=== PATIENT | female | born 1950 | race Caucasian/White ===

== ENCOUNTER 2020-04-11 11:58 | Outpatient (CLI) | payer MEDICARE, OTHER, SELFPAY ==
[2020-04-11 12:50] LABS: Basophils # 0.1 10^3/uL (0.0-0.1); Basophils % 0.7 %; Eosinophils # 0.2 10^3/uL (0.0-0.8); Eosinophils % 1.3 %; Hemoglobin 13.1 g/dL (11.5-15.3); Lymphocytes # 6.8 10^3/uL (0.8-4.8); Lymphocytes % 46.7 %; Mean Corpuscular HGB Conc 31.2 g/dL (30.0-36.0); Mean Corpuscular Hemoglobin 32.1 pg (28.0-34.0); Mean Corpuscular Volume 102.9 fL (81-99); Mean Platelet Volume 10.6 fL (7.4-10.4); Monocytes # 1.2 10^3/uL (0.2-0.9); Monocytes % 8.1 %; Neutrophils % 42.9 %; Nucleated Red Blood Cells % 0 %; Platelet Count 380 10^3/cmm (130-400); Red Blood Count 4.08 10^6/uL (4.1-5.3); Red Cell Distribution Width 14.1 % (12.1-15.1); White Blood Count 14.5 10^3/uL (4.0-10.0)
[2020-04-11 13:04] LABS: Alanine Aminotransferase 33 U/L (0-33); Albumin Level 3.9 g/dL (3.5-5.2); Alkaline Phosphatase 129 IU/L (35-105); Anion Gap 16.3 (5-19); Aspartate Amino Transferase 45 U/L (0-32); Blood Urea Nitrogen 17 mg/dL (8-23); Calcium 9.3 mg/dL (8.5-10.5); Carbon Dioxide 22 mmol/L (22-29); Chloride 101 mmol/L (98-107); Globulin 3.8 g/dL (1.3-4.6); Glucose 303 mg/dL (65-115); Osmolality Calculated 288 mOsm/kg (285-295); Potassium 4.3 mmol/L (3.5-5.1); Sodium 135 mmol/L (136-145); Total Bilirubin 0.2 mg/dL (0.15-1.2); Total Protein 7.7 g/dL (6.6-8.7)
[2020-04-11 13:54] LABS: Lactate Dehydrogenase 188 U/L (135-214)
--- NOTE | 2020-04-11 20:25 | ONC FU_ITS ---
Dr. Griffith Patient Follow-Up Note Patient: Moira Mckinnon Unit #: [id number]: 1950 Dicatated By: Humphrey Griffith M.D.Date of Visit:Apr 11, 2020 Onc Med Follow-up/Prog Note Chief Complaint: Gamma-T lymphocytosis. 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 In May 2014 she was admitted with a febrile illness. This was ultimately determined to be a CMV infection, and she was treated with valganciclovir. I had seen her in October 2014 with persistent leukocytosis following that illness. The records included a CBC from 10/08/14 which showed an elevated white count at 18,600 with hemoglobin 13.8 g and platelet count 407,000. The red cell indices were normal. The differential included 22% neutrophils, 80% lymphocytes, 8% atypical lymphocytes, 8% monocytes, and 2% eosinophils. Comprehensive metabolic profile was unremarkable except for borderline renal function with BUN 27 and creatinine 1.1 mg/dL and calculated GFR 58 mL/m. Albumin was normal at 4.4 g/dL. Liver enzymes were normal. At the time of her visit in October 2014 her white count remained elevated at 22,000 with the differential showing 64% lymphocytes, 26% neutrophils, 7% monocytes, and 1% eosinophils. Hemoglobin was normal at 13.7 g and the platelet count was normal at 394,000. Comprehensive metabolic profile was unremarkable. LDH was normal at 197 units/L. Based on the differential count, I had suspected early stage chronic lymphocytic leukemia, but a whole blood flow cytometry study showed no aberrant myeloid or lymphoid populations. On a followup visit in November 2014 her CBC showed similar findings, but her blood smear did show numerous large granular lymphocytes consistent with gamma-T lymphocytosis. She underwent bone marrow aspiration/biopsy on 01/07/15. The bone marrow showed cellularity at 70-75%. There was just a mildly increased lymphocyte population in the bone marrow without blasts. Flow cytometry showed slightly increased CD8 positive T cells but with no overtly aberrant myeloid or lymphoid populations. The chromosome analysis was normal and the FISH panel for lymphoma was normal. A whole blood PCR T-cell panel in February 2015 was positive for a clonal T-cell receptor gamma (TCRG) population. As she was not overtly symptomatic, observation/expectant management was recommended. Her medical illnesses include hypertension, hyperlipidemia, type 2 diabetes, chronic kidney disease, GERD, irritable bowel syndrome, asthma, obstructive sleep apnea, degenerative arthritis, and fibromyalgia. She also has osteoporosis. She has a prior history of lower extremity deep vein thrombosis. She had cat scratch disease in 1991. She underwent splenectomy for traumatic injury in 2006. She does not smoke or drink alcohol. INTERIM HISTORY: Subsequent to her visit with me in March 2019 she had been seen by farm reporter for suspected lupus. 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 Her liver biopsy on 11/18/2019 showed mild steatosis with features of steatohepatitis, moderately active portal and lobular hepatitis, and cirrhosis, stage 4 of 4. Thus far she has been managed expectantly. She is seen for a follow-up visit. She says her energy is good, but she does have limited activity. Her ECOG score is 1. Her appetite is somewhat variable. She has been watching her diet for the cirrhosis. Her blood sugars lately have been high. She does not have fever or night sweats. She says she has sinus drainage all the time. She has shortness of breath, and she is on CPAP at night. She does not complain of cough, and she has not been having chest pain. She has nausea occasionally. She complains that she has acid reflux all the time despite taking Dexilant. Her bowels function is variable. She says she is either bound up or loose, but she does not have diarrhea. She has not been aware of any blood in the stool. She has frequent urination. She says she has generalized aching all the time. Her most significant pain lately has been in the left shoulder/left upper back area. She does not complain of headache. She has occasional dizziness. She has numbness in both hands. Medications: ALPRAZolam 1 (0.25 mg) Tablet Oral at bedtime PRN, Ambien 1 (10 mg) Tablet Oral at bedtime, Aspirin 1 (81 mg) Tablet Oral daily, BL Stool Softener 1 (100 mg) Capsule Oral daily, Calcium + D Tablet Oral daily, Cetirizine HCl 1 (10 mg) Tablet Oral daily, Cyclobenzaprine HCl 1 (10 mg) Tablet Oral t.i.d., Dexilant 1 (60 mg) Capsule Delayed Release Oral daily, EpiPen Injection PRN, Famvir 1 (50 mg) Tablet Oral daily, Flonase 2 spray(s) (of 50 mcg/act) Suspension Nasal daily, Flovent HFA 2 (220 mcg/act) Aerosol Inhalation PRN, Januvia 1 (100 mg) Tablet Oral daily, Lisinopril 1 (10 mg) Tablet Oral daily, Lyrica 1 Capsule (of 50 mg) Oral b.i.d., MetFORMIN HCl 2 Tablet (of 500 mg) Oral daily, Multivitamins Capsule Oral daily, Plavix 1 (75 mg) Tablet Oral daily, Polyethylene Glycol 1 (99 mg) Powder at bedtime, Potassium 1 (95 mg) Tablet, controlled release Oral daily, Probiotic 1 Capsule Oral b.i.d., Ventolin HFA Aerosol, solution Inhalation PRN, Vitamin B Complex Tablet Oral daily, Vitamin E 1 Capsule Oral daily Allergies: Demerol, Morphine Sulfate, PROzac, Sulfa Antibiotics, and Talwin NX. Review of Systems: Constitutional - Her energy is good, but she does have limited activity. Appetite is variable. She is watching her diet. Her blood sugars recently have been high. She does not have fever or night sweats. ECOG score is 1, ENMT - She has sinus drainage all the time. No mouth sores. No sore throat or difficulty swallowing, Hematologic/Lymphatic - She bruises easily, Respiratory - She has shortness of breath, and she is using CPAP at night. No cough. No pleuritic pain or hemoptysis, Cardiovascular - No angina pain. No palpitations, Gastrointestinal - She occasionally has nausea. She has acid reflux all the time despite taking Dexilant. She says her bowels are either bound up or loose, but she does not have diarrhea. No blood in the stool or black stools, Genitourinary (F) - No dysuria or hematuria. She has urinary frequency. No urgency or incontinence, Musculoskeletal - She has generalized aching all the time. Her most severe pain is in her left shoulder/left upper back area, Integumentary - No skin rash, Neurologic - No headache. She occasionally has dizziness. She has numbness in hands. No other focal neurologic symptoms, Psychiatric - No anxiety or depression. She does not sleep well at night. Vital Signs: Performed on Apr 11, 2020 13:32 Height - 64.00 in Weight - 170.2 lbs (LOW) BSA - 1.83 sq.m BMI - 29.21 Temperature - 98.2 F (LOW) Pulse - 100 /min Respiration - 24 /min BP - 158/96 mm(hg) (HIGH) O2 Sat - 96 % Pain - 7 Physical Examination: Constitutional - She looks pretty good generally, though she has limited mobility, Eyes - Sclerae nonicteric. Conjunctivae clear, ENMT - No lesions noted in the oral cavity, Hematologic/Lymphatic - There is no cervical, clavicular, or axillary adenopathy noted, Respiratory - Lungs are clear, Cardiovascular - Heart rhythm is regular. There is a II/ systolic murmur. There is no gallop or rub noted, Abdomen - Soft. Liver is not enlarged. There is no abdominal mass or ascites noted and there is no inguinal adenopathy, Extremities - No edema, Neurologic - No focal neurologic deficits noted. Lab/Imaging: Test performed on Apr 11, 2020 12:10 LDH (Total) 188 U/L Sodium 135 mmol/L Potassium 4.3 mmol/L Chloride 101 mmol/L CO2 22 mmol/L Anion Gap 16.3 BUN 17 mg/dL Creatinine 0.9 mg/dL Cr Clearance (Est) 69.88 mL/min Glucose 303 mg/dL Calcium 9.3 mg/dL Protein, Total 7.7 g/dL Albumin 3.9 g/dL Globulin 3.8 g/dL Bilirubin, Total 0.2 mg/dL ALT (SGPT) 33 U/L AST (SGOT) 45 U/L Alkaline Phosphatase 129 IU/L WBC 14.5 10 3/uL RBC 4.08 10 6/uL HGB 13.1 g/dL HCT 42.0 % MCV 102.9 fL MCH 32.1 pg MCHC 31.2 g/dL RDW 14.1 % Platelet Count 380 10 3/cmm MPV 10.6 fL Neutrophils 6.20 10 3/uL Lymphocytes 6.8 10 3/uL Monocytes 1.2 10 3/uL Eosinophils 0.2 10 3/uL Basophils 0.1 10 3/uL Neutrophil % 42.9 % Lymphocyte % 46.7 % Monocyte % 8.1 % Eosinophil % 1.3 % Basophils % 0.7 % NRBC % 0 % Impression: 1. The patient has persistent lymphocytosis. It initially developed following a febrile illness in May 2014, presumed to have been due to cytomegalovirus. 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 2. She was not overtly symptomatic with it, and as there had been no evidence of any progression, observation/expectant management was recommended. Her other medical illnesses include: 3. Hypertension. 4. Hyperlipidemia. 5. Type II diabetes. 6. Chronic kidney disease. 7. GERD. 8. Irritable bowel syndrome. 9. Asthma/COPD. 10. Degenerative arthritis and fibromyalgia with chronic pain. 11. Osteoporosis. 12. She has a prior history of lower extremity deep vein thrombosis. 13. She underwent splenectomy for traumatic injury in 2006. During follow-up, she had ongoing problems related to her degenerative arthritis and she required multiple joint surgeries. In November 2018 she was admitted to the hospital with Shigella gastroenteritis. During subsequent follow-up she developed symptoms and laboratory findings suggestive of systemic lupus erythematosus. 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 Her liver biopsy in October 2019 showed mild steatosis with features of steatohepatitis and moderately active portal and lobular hepatitis, but with fairly advanced cirrhosis (stage 4 of 4). She continues to have fairly generalized musculoskeletal pain, and she has somewhat limited activity. She says her blood sugars recently have been running high. Her blood counts, though, are stable to improved. There has been no evidence of progression of the gamma T lymphocytosis and no evidence of it being symptomatic. Plan: She remains on observation/expectant management for the gamma T lymphocytosis. I will see her again in one year. Signed By: Humphrey Griffith M.D. <<Signature on File>>
== END 2020-04-11 11:59 | disposition home or self-care (01) ==
LOC: ONCMED 12:02
PROVIDERS: PCP Family Medicine; Visit Provider Internal Medicine Medical Oncology
DX: D72.820 Lymphocytosis (symptomatic) (principal); E78.5 Hyperlipidemia, unspecified; E11.22 Type 2 diabetes mellitus with diabetic chronic kidney disease; I12.9 Hypertensive chronic kidney disease with stage 1 through stage 4 chronic kidney disease, or unspecified chronic kidney disease; N18.9 Chronic kidney disease, unspecified; K21.9 Gastro-esophageal reflux disease without esophagitis; K58.9 Irritable bowel syndrome, unspecified; J44.9 Chronic obstructive pulmonary disease, unspecified; M19.90 Unspecified osteoarthritis, unspecified site; M79.7 Fibromyalgia; M81.0 Age-related osteoporosis without current pathological fracture; Z86.718 Personal history of other venous thrombosis and embolism; Z79.82 Long term (current) use of aspirin; Z79.84 Long term (current) use of oral hypoglycemic drugs
CPT/HCPCS: 80053; 83615; 85025; G0463

== ENCOUNTER → 2020-05-26 10:55 | Outpatient (BNVA) | payer MEDICARE, OTHER, SELFPAY | PROVIDERS: PCP Family Medicine; Visit Provider Internal Medicine | DX: E11.65 Type 2 diabetes mellitus with hyperglycemia (principal); I10 Essential (primary) hypertension; K74.69 Other cirrhosis of liver | CPT/HCPCS: 99204 ==

== ENCOUNTER 2020-05-27 08:37 | Outpatient (CLI) | payer MEDICARE, OTHER, SELFPAY ==
[2020-05-27 09:23] LABS: Estmated Average Glucose 197; Hemoglobin A1C 8.5 % (4.0-6.0)
== END 2020-05-27 08:38 | disposition home or self-care (01) ==
LOC: LAB 08:42
PROVIDERS: PCP Family Medicine; Visit Provider Internal Medicine
DX: E11.65 Type 2 diabetes mellitus with hyperglycemia (principal)
CPT/HCPCS: 36415; 83036

== ENCOUNTER → 2020-07-26 08:19 | Outpatient (BNVA) | payer MEDICARE, OTHER, SELFPAY | PROVIDERS: PCP Family Medicine; Visit Provider Internal Medicine | DX: E11.65 Type 2 diabetes mellitus with hyperglycemia (principal); E78.5 Hyperlipidemia, unspecified; I10 Essential (primary) hypertension; K74.69 Other cirrhosis of liver | CPT/HCPCS: 99214 ==

== ENCOUNTER → 2020-08-23 08:58 | Outpatient (BNVA) | payer MEDICARE, OTHER, SELFPAY | PROVIDERS: PCP Family Medicine; Visit Provider Internal Medicine | DX: E11.65 Type 2 diabetes mellitus with hyperglycemia (principal); E78.5 Hyperlipidemia, unspecified; I10 Essential (primary) hypertension; K74.69 Other cirrhosis of liver | CPT/HCPCS: 99213 ==

== ENCOUNTER → 2020-12-16 08:25 | Outpatient (BNVA) | payer MEDICARE, SELFPAY | PROVIDERS: PCP Family Medicine; Visit Provider Internal Medicine | DX: E11.65 Type 2 diabetes mellitus with hyperglycemia (principal); E78.5 Hyperlipidemia, unspecified; I10 Essential (primary) hypertension; K74.69 Other cirrhosis of liver | CPT/HCPCS: 99214 ==

== ENCOUNTER 2021-04-12 12:01 | Outpatient (CLI) | payer MEDICARE, SELFPAY ==
[2021-04-12 12:19] LABS: Basophils # 0.1 10^3/uL (0.0-0.1); Basophils % 0.6 %; Eosinophils # 0.3 10^3/uL (0.0-0.8); Eosinophils % 1.7 %; Hematocrit 36.7 % (37.0-47.0); Hemoglobin 11.8 g/dL (11.5-15.3); Lymphocytes # 9.6 10^3/uL (0.8-4.8); Lymphocytes % 55.3 %; Mean Corpuscular HGB Conc 32.2 g/dL (30.0-36.0); Mean Corpuscular Hemoglobin 28.5 pg (28.0-34.0); Mean Corpuscular Volume 88.6 fL (81-99); Mean Platelet Volume 9.7 fL (7.4-10.4); Monocytes # 1.4 10^3/uL (0.2-0.9); Monocytes % 8.3 %; Neutrophils # 5.84 10^3/uL (1.8-7.7); Neutrophils % 33.7 %; Nucleated Red Blood Cells % 0 %; Platelet Count 475 10^3/cmm (130-400); Positive M 1; Red Blood Count 4.14 10^6/uL (4.1-5.3); Red Cell Distribution Width 16.4 % (12.1-15.1); White Blood Count 17.3 10^3/uL (4.0-10.0)
[2021-04-12 12:41] LABS: Alanine Aminotransferase 55 U/L (0-33); Albumin Level 4.3 g/dL (3.5-5.2); Alkaline Phosphatase 89 IU/L (35-105); Anion Gap 19.4 (5-19); Aspartate Amino Transferase 65 U/L (0-32); Blood Urea Nitrogen 16 mg/dL (8-23); Calcium 9.4 mg/dL (8.5-10.5); Carbon Dioxide 21 mmol/L (22-29); Chloride 102 mmol/L (98-107); Globulin 3.6 g/dL (1.3-4.6); Glucose 156 mg/dL (65-115); Lactate Dehydrogenase 204 U/L (135-214); Osmolality Calculated 290 mOsm/kg (285-295); Potassium 4.4 mmol/L (3.5-5.1); Sodium 138 mmol/L (136-145); Total Bilirubin 0.2 mg/dL (0.15-1.2); Total Protein 7.9 g/dL (6.6-8.7)
[2021-04-12 12:49] LABS: Slide Review Slide Review Perform
[2021-04-12 15:25] LABS: Iron 42 ug/dL (37-145); Percent Saturation 10.2 % (20-50); Total Iron Binding Capacity 409 mcg/dl; Unsaturated Iron Binding 367 ug/dL (112-347); Vitamin B12 1184 pg/mL (232-1245)
--- NOTE | 2021-04-16 15:34 | ONC FU_ITS ---
Dr. Griffith Patient Follow-Up Note Patient: Moira Mckinnon Unit #: [id number]: 1950 Dicatated By: Humphrey Griffith M.D.Date of Visit:Apr 12, 2021 Onc Med Follow-up/Prog Note Chief Complaint: Gamma-T lymphocytosis. History of Present Illness: This is a 71 year-old woman with gamma-T lymphocytosis. In May 2014 she was admitted with a febrile illness. This was ultimately determined to be a CMV infection, and she was treated with valganciclovir. I had seen her in October 2014 with persistent leukocytosis following that illness. The records included a CBC from 10/08/14 which showed an elevated white count at 18,600 with hemoglobin 13.8 g and platelet count 407,000. The red cell indices were normal. The differential included 22% neutrophils, 80% lymphocytes, 8% atypical lymphocytes, 8% monocytes, and 2% eosinophils. Comprehensive metabolic profile was unremarkable except for borderline renal function with BUN 27 and creatinine 1.1 mg/dL and calculated GFR 58 mL/m. Albumin was normal at 4.4 g/dL. Liver enzymes were normal. At the time of her visit in October 2014 her white count remained elevated at 22,000 with the differential showing 64% lymphocytes, 26% neutrophils, 7% monocytes, and 1% eosinophils. Hemoglobin was normal at 13.7 g and the platelet count was normal at 394,000. Comprehensive metabolic profile was unremarkable. LDH was normal at 197 units/L. Based on the differential count, I had suspected early stage chronic lymphocytic leukemia, but a whole blood flow cytometry study showed no aberrant myeloid or lymphoid populations. On a followup visit in November 2014 her CBC showed similar findings, but her blood smear did show numerous large granular lymphocytes consistent with gamma-T lymphocytosis. She underwent bone marrow aspiration/biopsy on 01/07/15. The bone marrow showed cellularity at 70-75%. There was just a mildly increased lymphocyte population in the bone marrow without blasts. Flow cytometry showed slightly increased CD8 positive T cells but with no overtly aberrant myeloid or lymphoid populations. The chromosome analysis was normal and the FISH panel for lymphoma was normal. A whole blood PCR T-cell panel in February 2015 was positive for a clonal T-cell receptor gamma (TCRG) population. As she was not overtly symptomatic, observation/expectant management was recommended. Her medical illnesses include hypertension, hyperlipidemia, type 2 diabetes, chronic kidney disease, GERD, irritable bowel syndrome, asthma, obstructive sleep apnea, degenerative arthritis, and fibromyalgia. She also has osteoporosis. She has a prior history of lower extremity deep vein thrombosis. She had cat scratch disease in 1991. She underwent splenectomy for traumatic injury in 2006. She does not smoke or drink alcohol. INTERIM HISTORY: Subsequent to her visit with nc in March 2019 she had been seen by sewer system supervisor for suspected lupus. 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 Her liver biopsy on 11/18/2019 showed mild steatosis with features of steatohepatitis, moderately active portal and lobular hepatitis, and cirrhosis, stage 4 of 4. She has been managed expectantly. She is seen for a follow-up visit. She says she is feeling okay except for her back pain, which limits her activity. She is able to do some walking and she also does gardening and some housework. ECOG score is 1. She has good appetite. She does not have fever or night sweats. She has not had sore mouth or throat and she has no difficulty swallowing. She has no shortness of breath, cough, or chest pain. She has no GI or complaints. She has no pain other than her back. She does not complain of headache or dizziness. She does have some numbness/tingling in her left arm. She is on CPAP for obstructive sleep apnea. Medications: ALPRAZolam 1 (0.25 mg) Tablet Oral at bedtime PRN, Ambien 1 (10 mg) Tablet Oral at bedtime, Aspirin 1 (81 mg) Tablet Oral daily, BL Stool Softener 1 (100 mg) Capsule Oral daily, Calcium + D Tablet Oral daily, Cetirizine HCl 1 (10 mg) Tablet Oral daily, Cyclobenzaprine HCl 1 (10 mg) Tablet Oral t.i.d., Dexilant 1 (60 mg) Capsule Delayed Release Oral daily, EpiPen Injection PRN, Famvir 1 (50 mg) Tablet Oral daily, Flonase 2 spray(s) (of 50 mcg/act) Suspension Nasal daily, Flovent HFA 2 (220 mcg/act) Aerosol Inhalation PRN, Januvia 1 (100 mg) Tablet Oral daily, Lisinopril 1 (10 mg) Tablet Oral daily, Lyrica 1 Capsule (of 50 mg) Oral b.i.d., MetFORMIN HCl 2 Tablet (of 500 mg) Oral daily, Multivitamins Capsule Oral daily, Plavix 1 (75 mg) Tablet Oral daily, Polyethylene Glycol 1 (99 mg) Powder at bedtime, Potassium 1 (95 mg) Tablet, controlled release Oral daily, Probiotic 1 Capsule Oral b.i.d., Ventolin HFA Aerosol, solution Inhalation PRN, Vitamin B Complex Tablet Oral daily, Vitamin E 1 Capsule Oral daily Allergies: Demerol, Morphine Sulfate, PROzac, Sulfa Antibiotics, and Talwin NX. Vital Signs: Performed on Apr 12, 2021 13:28 Height - 64.00 in Weight - 178.8 lbs (HIGH) BSA - 1.87 sq.m BMI - 30.69 (HIGH) Temperature - 97.2 F (LOW) Pulse - 109 /min (HIGH) Respiration - 18 /min BP - 148/83 mm(hg) (HIGH) O2 Sat - 97 % Pain - 8 Fatigue - 0 Physical Examination: Constitutional - She looks pretty good generally, Eyes - Sclerae nonicteric. Conjunctivae clear, ENMT - No lesions noted in the oral cavity, Hematologic/Lymphatic - There is no cervical, clavicular, or axillary adenopathy noted, Respiratory - Lungs are clear, Cardiovascular - Heart rhythm is regular. There is a III/ systolic murmur. There is no gallop or rub noted, Abdomen - Soft. Liver is not enlarged. There is no abdominal mass or ascites noted and there is no inguinal adenopathy, Extremities - No edema, Neurologic - No focal neurologic deficits noted. Lab/Imaging: Test performed on Apr 12, 2021 12:11 Iron 42 mcg/dL LDH (Total) 204 U/L Sodium 138 mmol/L Vitamin B12 1184 pg/mL Iron Binding Capacity (TIBC) 409 mcg/dl Potassium 4.4 mmol/L % Iron Saturation 10.2 % Chloride 102 mmol/L CO2 21 mmol/L UIBC 367 mcg/dL Anion Gap 19.4 BUN 16 mg/dL Creatinine 1.1 mg/dL Cr Clearance (Est) 59.19 mL/min Glucose 156 mg/dL Osmolality - Calculated 290 mOsm/kg Calcium 9.4 mg/dL Protein, Total 7.9 g/dL Albumin 4.3 g/dL Globulin 3.6 g/dL Bilirubin, Total 0.2 mg/dL ALT (SGPT) 55 U/L AST (SGOT) 65 U/L Alkaline Phosphatase 89 IU/L WBC 17.3 10 3/uL RBC 4.14 10 6/uL HGB 11.8 g/dL HCT 36.7 % MCV 88.6 fL MCH 28.5 pg MCHC 32.2 g/dL RDW 16.4 % Platelet Count 475 10 3/cmm MPV 9.7 fL Neutrophils 5.84 10 3/uL Lymphocytes 9.6 10 3/uL Monocytes 1.4 10 3/uL Eosinophils 0.3 10 3/uL Basophils 0.1 10 3/uL Neutrophil % 33.7 % Lymphocyte % 55.3 % Monocyte % 8.3 % Eosinophil % 1.7 % Basophils % 0.6 % NRBC % 0 % CBC Slide Review Slide Review Perform Problem List: 1. 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 2. Autoimmune liver disease with cirrhosis. 3. Hypertension. 4. Hyperlipidemia. 5. Type II diabetes. 6. Chronic kidney disease. 7. GERD. 8. Irritable bowel syndrome. 9. Asthma/COPD. 10. Degenerative arthritis and fibromyalgia with chronic pain. 11. Osteoporosis. 12. She has a prior history of lower extremity deep vein thrombosis. 13. She underwent splenectomy for traumatic injury in 2006. Problems Addressed with this Encounter and Plan: 1. Patient with persistent lymphocytosis. It initially developed following a febrile illness in May 2014, presumed to have been due to cytomegalovirus. 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 She was not overtly symptomatic with it, and as there had been no evidence of any progression, observation/expectant management was recommended. During follow-up she has had limited activity due to her underlying degenerative disease and chronic back pain. There has been no evidence for symptomatic progression of the lymphoproliferative disorder. As such, she continues expectant management. I will see her again in 6 months. 2. She has become mildly anemic. She will have additional laboratory studies to include serum iron studies and a B12 level. She will have further evaluation as indicated. If she is confirmed to have iron deficiency, she will need stool testing to evaluate for occult GI blood loss. 3. In November 2018 she was admitted to the hospital with Shigella gastroenteritis. During subsequent follow-up she developed symptoms and laboratory findings suggestive of systemic lupus erythematosus. 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 Her liver biopsy in October 2019 showed mild steatosis with features of steatohepatitis and moderately active portal and lobular hepatitis, but with fairly advanced cirrhosis (stage 4 of 4). It has been managed expectantly. Signed By: Humphrey Griffith M.D. <<Signature on File>>
== END 2021-04-12 12:02 | disposition home or self-care (01) ==
LOC: ONCMED 12:05
PROVIDERS: PCP Family Medicine; Visit Provider Internal Medicine Medical Oncology
DX: C91.Z0 Other lymphoid leukemia not having achieved remission (principal); K74.69 Other cirrhosis of liver; I10 Essential (primary) hypertension; E78.5 Hyperlipidemia, unspecified; E11.9 Type 2 diabetes mellitus without complications; N18.9 Chronic kidney disease, unspecified; K21.9 Gastro-esophageal reflux disease without esophagitis; K58.9 Irritable bowel syndrome, unspecified; J44.9 Chronic obstructive pulmonary disease, unspecified; M18.0 Bilateral primary osteoarthritis of first carpometacarpal joints; Z79.899 Other long term (current) drug therapy
CPT/HCPCS: 36415; 80053; 82607; 83540; 83550; 83615; 85025; 99214

== ENCOUNTER 2021-05-26 15:15 | Outpatient (CLI) | payer MEDICARE, SELFPAY | END 2021-05-26 15:16 | disposition home or self-care (01) | LOC: LAB 15:19 | PROVIDERS: PCP Family Medicine; Visit Provider Internal Medicine Medical Oncology | DX: D64.9 Anemia, unspecified (principal) | CPT/HCPCS: 82274 ==

== ENCOUNTER → 2021-09-26 13:05 | Outpatient (BNVA) | payer MEDICARE, SELFPAY | PROVIDERS: PCP Family Medicine; Visit Provider Internal Medicine | DX: E11.65 Type 2 diabetes mellitus with hyperglycemia (principal); K74.69 Other cirrhosis of liver; I10 Essential (primary) hypertension; E78.5 Hyperlipidemia, unspecified; N20.0 Calculus of kidney; Z79.4 Long term (current) use of insulin; Z79.84 Long term (current) use of oral hypoglycemic drugs | CPT/HCPCS: 99214 ==

== ENCOUNTER → 2021-10-11 09:11 | Outpatient (BNVA) | payer MEDICARE, SELFPAY | PROVIDERS: PCP Family Medicine; Visit Provider Internal Medicine | DX: E11.65 Type 2 diabetes mellitus with hyperglycemia (principal); K74.69 Other cirrhosis of liver; I10 Essential (primary) hypertension; E78.5 Hyperlipidemia, unspecified; Z79.4 Long term (current) use of insulin; Z79.84 Long term (current) use of oral hypoglycemic drugs | CPT/HCPCS: 99214 ==

== ENCOUNTER 2021-10-16 12:25 | Outpatient (CLI) | payer MEDICARE, SELFPAY ==
[2021-10-16 13:08] LABS: Basophils # 0.1 10^3/uL (0.0-0.1); Basophils % 0.5 %; Eosinophils # 0.3 10^3/uL (0.0-0.8); Eosinophils % 1.6 %; Hematocrit 38.9 % (37.0-47.0); Hemoglobin 13.1 g/dL (11.5-15.3); Lymphocytes % 48.8 %; Mean Corpuscular HGB Conc 33.7 g/dL (30.0-36.0); Mean Corpuscular Volume 94.9 fl (81-99); Mean Platelet Volume 10.1 fL (7.4-10.4); Monocytes % 5.9 %; Neutrophils # 7.06 10^3/uL (1.8-7.7); Neutrophils % 42.9 %; Nucleated Red Blood Cells % 0 %; Platelet Count 384 10^3/cmm (130-400); Red Cell Distribution Width 14.5 % (12.1-15.1); White Blood Count 16.5 10^3/uL (4.0-10.0)
[2021-10-16 13:34] LABS: Alanine Aminotransferase 54 U/L (0-33); Albumin Level 4.2 g/dL (3.5-5.2); Alkaline Phosphatase 83 IU/L (35-105); Anion Gap 17.3 (5-19); Aspartate Amino Transferase 46 U/L (0-32); Blood Urea Nitrogen 17 mg/dL (8-23); Carbon Dioxide 21 mmol/L (22-29); Chloride 104 mmol/L (98-107); Globulin 2.6 g/dL (1.3-4.6); Glucose 213 mg/dL (65-115); Lactate Dehydrogenase 196 U/L (135-214); Osmolality Calculated 294 mOsm/kg (285-295); Potassium 4.3 mmol/L (3.5-5.1); Sodium 138 mmol/L (136-145); Total Bilirubin 0.3 mg/dL (0.15-1.2); Total Protein 6.8 g/dL (6.6-8.7)
[2021-10-16 15:19] LABS: Iron 156 ug/dL (37-145); Percent Saturation 51.4 % (20-50); Total Iron Binding Capacity 303 mcg/dl; Unsaturated Iron Binding 147 ug/dL (112-347)
[2021-10-16 15:52] LABS: LAB Peripheral Smear Sent for Review
--- NOTE | 2021-10-20 14:26 | ONC FU_ITS ---
Dr. Griffith Patient Follow-Up Note Patient: Moira Mckinnon Unit #: [id number]: 1950 Dicatated By: Humphrey Griffith M.D.Date of Visit:Oct 16, 2021 Onc Med Follow-up/Prog Note Chief Complaint: Gamma-T lymphocytosis. History of Present Illness: This is a 71 year-old woman with gamma-T lymphocytosis. In May 2014 she was admitted with a febrile illness. This was ultimately determined to be a CMV infection, and she was treated with valganciclovir. I had seen her in October 2014 with persistent leukocytosis following that illness. The records included a CBC from 10/08/14 which showed an elevated white count at 18,600 with hemoglobin 13.8 g and platelet count 407,000. The red cell indices were normal. The differential included 22% neutrophils, 80% lymphocytes, 8% atypical lymphocytes, 8% monocytes, and 2% eosinophils. Comprehensive metabolic profile was unremarkable except for borderline renal function with BUN 27 and creatinine 1.1 mg/dL and calculated GFR 58 mL/m. Albumin was normal at 4.4 g/dL. Liver enzymes were normal. At the time of her visit in October 2014 her white count remained elevated at 22,000 with the differential showing 64% lymphocytes, 26% neutrophils, 7% monocytes, and 1% eosinophils. Hemoglobin was normal at 13.7 g and the platelet count was normal at 394,000. Comprehensive metabolic profile was unremarkable. LDH was normal at 197 units/L. Based on the differential count, I had suspected early stage chronic lymphocytic leukemia, but a whole blood flow cytometry study showed no aberrant myeloid or lymphoid populations. On a followup visit in November 2014 her CBC showed similar findings, but her blood smear did show numerous large granular lymphocytes consistent with gamma-T lymphocytosis. She underwent bone marrow aspiration/biopsy on 01/07/2015. The bone marrow showed cellularity at 70-75%. There was just a mildly increased lymphocyte population in the bone marrow without blasts. Flow cytometry showed slightly increased CD8 positive T cells but with no overtly aberrant myeloid or lymphoid populations. The chromosome analysis was normal and the FISH panel for lymphoma was normal. A whole blood PCR T-cell panel in February 2015 was positive for a clonal T-cell receptor gamma (TCRG) population. As she was not overtly symptomatic, observation/expectant management was recommended. During follow-up her blood counts basically remained stable and she continued expectant management. Subsequent to her visit with me in March 2019 she had been seen by a ship yard electrical person for suspected lupus. 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 Her liver biopsy on 11/18/2019 showed mild steatosis with features of steatohepatitis, moderately active portal and lobular hepatitis, and cirrhosis, stage 4 of 4. Her other medical illnesses include hypertension, hyperlipidemia, type 2 diabetes, chronic kidney disease, GERD, irritable bowel syndrome, asthma, obstructive sleep apnea, degenerative arthritis, and fibromyalgia. She also has osteoporosis. She has a prior history of lower extremity deep vein thrombosis. She had cat scratch disease in 1991. She underwent splenectomy for traumatic injury in 2006. She does not smoke or drink alcohol. INTERIM HISTORY: She is seen for a follow-up visit. Her main complaint is that she had injured her right knee and a fall 2 weeks ago. The knee has been popping ever since then. She says she has had COVID twice, and she says her blood sugars have been out of site. She does not have a lot of energy. She is able to do some housework and she does get some exercise on the treadmill. ECOG score is 1. Her appetite is pretty good. She has not had fever. She does tend to wake up in the morning with a little sweating. She has not had sore mouth or throat. She does not complain of cough. She is on CPAP at night. Her breathing seems to be okay during the daytime. She has not been having chest pain. She has been having pain in her right upper quadrant area and earlier today she was having nausea and diarrhea. She has no complaints. She says her back hurts all the time. She occasionally has headache. 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 Medications: ALPRAZolam 1 (0.25 mg) Tablet Oral at bedtime PRN, Ambien 1 (10 mg) Tablet Oral at bedtime, Aspirin 1 (81 mg) Tablet Oral daily, BL Stool Softener 1 (100 mg) Capsule Oral daily, Calcium + D Tablet Oral daily, Cetirizine HCl 1 (10 mg) Tablet Oral daily, Cyclobenzaprine HCl 1 (10 mg) Tablet Oral t.i.d., Dexilant 1 (60 mg) Capsule Delayed Release Oral daily, EpiPen Injection PRN, Famvir 1 (50 mg) Tablet Oral daily, Flonase 2 spray(s) (of 50 mcg/act) Suspension Nasal daily, Flovent HFA 2 (220 mcg/act) Aerosol Inhalation PRN, Januvia 1 (100 mg) Tablet Oral daily, Lisinopril 1 (10 mg) Tablet Oral daily, Lyrica 1 Capsule (of 50 mg) Oral b.i.d., Multivitamins Capsule Oral daily, Plavix 1 (75 mg) Tablet Oral daily, Polyethylene Glycol 1 (99 mg) Powder at bedtime, Potassium 1 (95 mg) Tablet, controlled release Oral daily, Probiotic 1 Capsule Oral b.i.d., Ventolin HFA Aerosol, solution Inhalation PRN, Vitamin B Complex Tablet Oral daily, Vitamin E 1 Capsule Oral daily Allergies: Demerol, Morphine Sulfate, PROzac, Sulfa Antibiotics, and Talwin NX. Vital Signs: Performed on Oct 16, 2021 14:09 Height - 64.00 in Weight - 176.6 lbs (LOW) BSA - 1.86 sq.m BMI - 30.31 (HIGH) Temperature - 97.3 F (LOW) Pulse - 110 /min (HIGH) Respiration - 18 /min BP - 155/74 mm(hg) (HIGH) O2 Sat - 95 % (LOW) Pain - 8 Fatigue - 7 Physical Examination: Constitutional - She looks pretty good generally, Eyes - Sclerae nonicteric. Conjunctivae clear, ENMT - No lesions noted in the oral cavity, Hematologic/Lymphatic - No cervical, clavicular, or axillary adenopathy, Respiratory - Lungs are clear, Cardiovascular - Heart rhythm is regular. There is a III/ systolic murmur. There is no gallop or rub noted, Abdomen - Soft. Liver is not enlarged. There is no abdominal mass or ascites noted and there is no inguinal adenopathy, Extremities - No edema. Pedal pulses are palpable bilaterally, Neurologic - No focal neurologic deficits noted. Lab/Imaging: Test performed on Oct 16, 2021 12:50 Iron 156 mcg/dL LDH (Total) 196 U/L Sodium 138 mmol/L Iron Binding Capacity (TIBC) 303 mcg/dl Potassium 4.3 mmol/L % Iron Saturation 51.4 % Chloride 104 mmol/L CO2 21 mmol/L UIBC 147 mcg/dL Anion Gap 17.3 BUN 17 mg/dL Creatinine 1.1 mg/dL Cr Clearance (Est) 58.46 mL/min Glucose 213 mg/dL Osmolality - Calculated 294 mOsm/kg Calcium 9.0 mg/dL Protein, Total 6.8 g/dL Albumin 4.2 g/dL Globulin 2.6 g/dL Bilirubin, Total 0.3 mg/dL ALT (SGPT) 54 U/L AST (SGOT) 46 U/L Alkaline Phosphatase 83 IU/L WBC 16.5 10 3/uL RBC 4.10 10 6/uL HGB 13.1 g/dL HCT 38.9 % MCV 94.9 fl MCH 32.0 pg MCHC 33.7 g/dL RDW 14.5 % Platelet Count 384 10 3/cmm MPV 10.1 fL Neutrophils 7.06 10 3/uL Lymphocytes 8.0 10 3/uL Monocytes 1.0 10 3/uL Eosinophils 0.3 10 3/uL Basophils 0.1 10 3/uL Neutrophil % 42.9 % Lymphocyte % 48.8 % Monocyte % 5.9 % Eosinophil % 1.6 % Basophils % 0.5 % NRBC % 0 % Problem List: 1. 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 2. Autoimmune liver disease with cirrhosis. 3. Hypertension. 4. Hyperlipidemia. 5. Type II diabetes. 6. Chronic kidney disease. 7. GERD. 8. Irritable bowel syndrome. 9. Asthma/COPD. 10. Degenerative arthritis and fibromyalgia with chronic pain. 11. Osteoporosis. 12. She has a prior history of lower extremity deep vein thrombosis. 13. She underwent splenectomy for traumatic injury in 2006. Problems Addressed with this Encounter and Plan: Patient with persistent lymphocytosis. It initially developed following a febrile illness in May 2014, presumed to have been due to cytomegalovirus. 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 She was not overtly symptomatic with it, and as there had been no evidence of any progression, observation/expectant management was recommended. During follow-up she has had limited activity due to her underlying degenerative disease and chronic back pain. There has been no evidence for symptomatic progression of the lymphoproliferative disorder. She continues expectant management. She will be scheduled for a follow-up visit in 1 year. Signed By: Humphrey Griffith M.D. <<Signature on File>>
== END 2021-10-16 12:26 | disposition home or self-care (01) ==
LOC: ONCMED 12:29
PROVIDERS: PCP Family Medicine; Visit Provider Internal Medicine Medical Oncology
DX: C91.Z0 Other lymphoid leukemia not having achieved remission (principal); I10 Essential (primary) hypertension; E78.5 Hyperlipidemia, unspecified; E11.9 Type 2 diabetes mellitus without complications; I12.9 Hypertensive chronic kidney disease with stage 1 through stage 4 chronic kidney disease, or unspecified chronic kidney disease; E11.22 Type 2 diabetes mellitus with diabetic chronic kidney disease; N18.9 Chronic kidney disease, unspecified; K21.9 Gastro-esophageal reflux disease without esophagitis; K58.9 Irritable bowel syndrome, unspecified; J44.9 Chronic obstructive pulmonary disease, unspecified; M79.7 Fibromyalgia; G89.29 Other chronic pain; M81.0 Age-related osteoporosis without current pathological fracture; Z86.718 Personal history of other venous thrombosis and embolism; Z90.81 Acquired absence of spleen
CPT/HCPCS: 36415; 80053; 83540; 83550; 83615; 85025; 99214

== ENCOUNTER → 2022-01-10 14:45 | Outpatient (BNVA) | payer MEDICARE, SELFPAY | PROVIDERS: PCP Family Medicine; Visit Provider Internal Medicine | DX: E11.65 Type 2 diabetes mellitus with hyperglycemia (principal); K74.69 Other cirrhosis of liver; I10 Essential (primary) hypertension; E78.5 Hyperlipidemia, unspecified; Z79.4 Long term (current) use of insulin; Z79.84 Long term (current) use of oral hypoglycemic drugs | CPT/HCPCS: 99214 ==

== ENCOUNTER 2023-01-01 12:54 | Oncology outpatient (recurring) (ONCR) | payer MEDICARE, SELFPAY | END 2023-01-20 23:59 | disposition home or self-care (01) | PROVIDERS: PCP Family Medicine; Visit Provider Internal Medicine Medical Oncology | DX: D72.820 Lymphocytosis (symptomatic) (principal) | CPT/HCPCS: 99213 ==

== ENCOUNTER 2023-07-23 08:51 | Oncology outpatient (recurring) (ONCR) | payer MEDICARE, SELFPAY ==
[2023-07-23 09:40] VITALS: BP 149/69; PULSE 115; RESP 16; TEMP 36.6; O2SAT 97
[2023-07-23 10:14] LABS: Basophils # 0.1 10^3/uL (0.0-0.1); Basophils % 0.4 %; Eosinophils # 0.1 10^3/uL (0.0-0.8); Eosinophils % 0.7 %; Hematocrit 28.1 % (36-47); Lymphocytes # 4.6 10^3/uL (0.8-4.8); Lymphocytes % 33.1 %; Mean Corpuscular Hemoglobin 29.3 pg (27-33); Mean Corpuscular Volume 94.6 fl (85-98); Mean Platelet Volume 10.1 fL (7.4-10.4); Monocytes # 1.1 10^3/uL (0.2-0.9); Monocytes % 8.2 %; Neutrophils # 7.82 10^3/uL (1.8-7.7); Neutrophils % 56.9 %; Nucleated Red Blood Cells % 0.1 %; Platelet Count 495 10^3/cmm (157-399); Red Blood Count 2.97 10^6/uL (3.85-5.65); Red Cell Distribution Width 24.5 % (12.1-15.1); White Blood Count 13.73 10^3/uL (3.29-11.43)
[2023-07-23 10:50] LABS: Alanine Aminotransferase 32 U/L (0-33); Albumin Level 4.1 g/dL (3.5-5.2); Alkaline Phosphatase 91 U/L (35-105); Blood Urea Nitrogen 33 mg/dL (8-23); Calcium 9.2 mg/dL (8.5-10.5); Carbon Dioxide 24 mmol/L (22-29); Chloride 101 mmol/L (98-107); Ferritin 91 ng/mL (15-150); Globulin 3.3 g/dL (1.3-4.6); Glucose 175 mg/dL (65-115); Iron 32 ug/dL (37-145); Osmolality Calculated 294 mOsm/kg (285-295); Sodium 136 mmol/L (136-145); Total Bilirubin 0.3 mg/dL (0.15-1.2); Total Protein 7.4 g/dL (6.6-8.7)
[2023-07-23 10:53] LABS: Anion Gap 15.4 (5-19); Aspartate Amino Transferase 50 U/L (0-32); Percent Saturation 8.8 % (20-50); Potassium 4.4 mmol/L (3.5-5.1); Total Iron Binding Capacity 362 mcg/dl; Unsaturated Iron Binding 330 ug/dL (112-347)
== END 2023-07-23 23:59 | disposition home or self-care (01) ==
PROVIDERS: PCP Family Medicine; Visit Provider Internal Medicine Medical Oncology
DX: D64.9 Anemia, unspecified (principal)
CPT/HCPCS: 80053; 82728; 83540; 83550; 85025

== ENCOUNTER 2023-08-21 09:00 | Oncology outpatient (recurring) (ONCR) | payer MEDICARE, SELFPAY ==
[2023-07-30 09:05] VITALS: BP 111/58; PULSE 101; RESP 18; TEMP 36.6; O2SAT 97
[2023-07-30 09:42] LABS: Basophils # 0.1 10^3/uL (0.0-0.1); Basophils % 0.3 %; Eosinophils # 0.2 10^3/uL (0.0-0.8); Eosinophils % 0.9 %; Hematocrit 25.7 % (36-47); Lymphocytes # 4.9 10^3/uL (0.8-4.8); Lymphocytes % 29.9 %; Mean Corpuscular HGB Conc 30.4 g/dL (30-55); Mean Corpuscular Hemoglobin 31.2 pg (27-33); Mean Corpuscular Volume 102.8 fl (85-98); Mean Platelet Volume 10.4 fL (7.4-10.4); Monocytes # 1.2 10^3/uL (0.2-0.9); Monocytes % 7.6 %; Neutrophils # 9.74 10^3/uL (1.8-7.7); Neutrophils % 59.9 %; Nucleated Red Blood Cells # 0.1 /100WBC; Nucleated Red Blood Cells % 0.7 %; Platelet Count 534 10^3/cmm (157-399); White Blood Count 16.27 10^3/uL (3.29-11.43)
[2023-07-30 10:35] LABS: Slide Review Slide Review Perform
[2023-07-30 10:36] LABS: Add RBC Morph Yes; RBC Morph Comp No
[2023-07-30 10:37] LABS: Dimorphic RBC 2+
[2023-07-30 10:38] LABS: Anisocytosis 3+; Poikilocytosis 1+; Polychromasia 2+
[2023-07-30 10:40] LABS: Target Cells 2+
[2023-08-06] VITALS (10 sets, daily range): BP systolic 113–126; BP diastolic 64–78; PULSE 87–101; RESP 17–18; TEMP 36.3–36.6; O2SAT 95–99
[2023-08-06 10:27] LABS: Reticulocyte % 7.5 % (0.5-2.0)
--- NOTE | 2023-08-06 10:42 | PC.NURSE ---
Patient peripheral lab draw attempted severaltimes per patient request with limited success. Red tube unable to be drawn. MD nurse informed. IV catheter left in place for possible transfusion.
[2023-08-06 10:47] LABS: Ferritin 57 ng/mL (15-150); Iron 65 ug/dL (37-145); Percent Saturation 18.4 % (20-50); Total Iron Binding Capacity 353 mcg/dl; Unsaturated Iron Binding 288 ug/dL (112-347)
[2023-08-06 10:48] LABS: Basophils # 0.1 10^3/uL (0.0-0.1); Basophils % 0.5 %; Eosinophils # 0.2 10^3/uL (0.0-0.8); Eosinophils % 1.5 %; Lymphocytes # 2.9 10^3/uL (0.8-4.8); Lymphocytes % 29.2 %; Mean Corpuscular HGB Conc 27.3 g/dL (30-55); Mean Corpuscular Hemoglobin 31.3 pg (27-33); Mean Corpuscular Volume 114.5 fl (85-98); Mean Platelet Volume 10.1 fL (7.4-10.4); Monocytes # 0.8 10^3/uL (0.2-0.9); Monocytes % 8.5 %; Neutrophils # 5.89 10^3/uL (1.8-7.7); Neutrophils % 59.9 %; Nucleated Red Blood Cells % 0 %; Platelet Count 369 10^3/cmm (157-399); Red Blood Count 2.27 10^6/uL (3.85-5.65); Red Cell Distribution Width 23.3 % (12.1-15.1); White Blood Count 9.85 10^3/uL (3.29-11.43)
[2023-08-06 11:22] LABS: Vitamin B12 > 2000 pg/mL (232-1245)
[2023-08-06 11:41] LABS: Alanine Aminotransferase 27 U/L (0-33); Albumin Level 3.4 g/dL (3.5-5.2); Alkaline Phosphatase 76 U/L (35-105); Anion Gap 15.2 (5-19); Aspartate Amino Transferase 53 U/L (0-32); Blood Urea Nitrogen 15 mg/dL (8-23); Calcium 8.9 mg/dL (8.5-10.5); Carbon Dioxide 21 mmol/L (22-29); Chloride 107 mmol/L (98-107); Globulin 2.8 g/dL (1.3-4.6); Glucose 160 mg/dL (65-115); Osmolality Calculated 292 mOsm/kg (285-295); Potassium 4.2 mmol/L (3.5-5.1); Sodium 139 mmol/L (136-145); Total Bilirubin 0.3 mg/dL (0.15-1.2); Total Protein 6.2 g/dL (6.6-8.7)
[2023-08-06 11:44] LABS: Lactate Dehydrogenase 237 U/L (135-214)
[2023-08-06] MEDS: sodium chloride 0.9% 250 mL Bag IV (12:07)
[2023-08-06] MEDS: diphenhydrAMINE 25 mg Capsule PO (12:07)
[2023-08-06 13:17] LABS: LAB Peripheral Smear Sent for Review
[2023-08-06 13:19] LABS: Folate Level > 20.0 ng/mL (4.8-37.3)
[2023-08-07 14:00] LABS: Leukemia Profile (BBPL) See Report; Lymphoma Profile (BBPL) See Report
[2023-08-13 09:46] LABS: Basophils % 0.4 %; Eosinophils # 0.1 10^3/uL (0.0-0.8); Eosinophils % 0.9 %; Hematocrit 29.2 % (36-47); Lymphocytes # 2.4 10^3/uL (0.8-4.8); Lymphocytes % 22.6 %; Mean Corpuscular HGB Conc 30.5 g/dL (30-55); Mean Corpuscular Hemoglobin 30.7 pg (27-33); Mean Corpuscular Volume 100.7 fl (85-98); Mean Platelet Volume 10.1 fL (7.4-10.4); Monocytes # 0.8 10^3/uL (0.2-0.9); Monocytes % 7.7 %; Neutrophils # 7.25 10^3/uL (1.8-7.7); Neutrophils % 67.8 %; Nucleated Red Blood Cells % 0 %; Platelet Count 485 10^3/cmm (157-399); Red Cell Distribution Width 19.5 % (12.1-15.1); White Blood Count 10.68 10^3/uL (3.29-11.43)
[2023-08-13 09:55] LABS: Erythrocyte Sedimentation Rate 36 mm/hr (0-15)
[2023-08-13 10:10] LABS: Alanine Aminotransferase 22 U/L (0-33); Albumin Level 3.7 g/dL (3.5-5.2); Alkaline Phosphatase 88 U/L (35-105); Anion Gap 18.3 (5-19); Aspartate Amino Transferase 31 U/L (0-32); Blood Urea Nitrogen 26 mg/dL (8-23); C Reactive Protein 22.7 mg/L (0.0-4.9); Carbon Dioxide 20 mmol/L (22-29); Chloride 102 mmol/L (98-107); Globulin 3.3 g/dL (1.3-4.6); Glucose 240 mg/dL (65-115); Lactate Dehydrogenase 190 U/L (135-214); Osmolality Calculated 295 mOsm/kg (285-295); Potassium 4.3 mmol/L (3.5-5.1); Sodium 136 mmol/L (136-145); Total Bilirubin 0.2 mg/dL (0.15-1.2)
[2023-08-13 10:18] LABS: Reticulocyte % 4.8 % (0.5-2.0)
[2023-08-13 10:28] LABS: INR 1.08 (0.8-1.2); Partial Thromboplastin Time 26.8 SECONDS (23.9-36.7)
[2023-08-13 10:29] LABS: Fibrinogen 641 mg/dL (174-498)
[2023-08-13 11:09] LABS: LAB Peripheral Smear Sent for Review
[2023-08-13 11:31] LABS: Creatinine Urine, Random 29 mg/dL (28-217); Total Protein, Random Urine 4.1 mg/dL (0.0-20.0)
[2023-08-13 11:44] LABS: Folate Level > 20.0 ng/mL (4.8-37.3)
[2023-08-14 10:36] LABS: Creatinine, Random Urine 30 mg/dL (20-275); Protein, Total, Random 5 mg/dL (5-24); Protein/Creatinine Ratio 0.167 (0.024-0.184); Protein/Creatinine Ratio 167 mg/g creat (24-184)
[2023-08-14 12:10] LABS: PROTEIN, TOTAL 6.2 g/dL (6.1-8.1)
[2023-08-14 14:15] LABS: Anti-Double Strand DNA AB <1 IU/mL
[2023-08-14 16:19] LABS: Cyclic Citrullinated Peptide <16 UNITS
[2023-08-16 11:50] LABS: Anti-Nuclear Antibody Pattern Nuclear, Homogeneous; Anti-Nuclear Antibody Screen POSITIVE (NEGATIVE)
[2023-08-16 14:05] LABS: ALBUMIN 3.2 g/dL (3.8-4.8); ALPHA 1 GLOBULIN 0.4 g/dL (0.2-0.3); ALPHA 2 GLOBULIN 0.8 g/dL (0.5-0.9); BETA 1 GLOBULIN 0.5 g/dL (0.4-0.6); BETA 2 GLOBULIN 0.5 g/dL (0.2-0.5); GAMMA GLOBULIN 0.9 g/dL (0.8-1.7)
[2023-08-18 14:54] LABS: Factor Viii, Activity 220 % normal (50-180); Partial Thromboplastin Time, A 26 sec (23-32); Von Willebrand Factor (Rcf) 203 % normal (42-200); Von Willebrand Factor Ag 309 % (50-217)
[2023-08-19 09:50] LABS: Albumin,Urine Random 0 %; Alpha-1-Globulins Urine Random 0 %; Alpha-2-Globulins Urine Random 0 %; Beta-Globulin,Urine Random 0 %; Gamma Globulin,Urine Random 0 %
[2023-08-19 10:53] VITALS: BP 114/73; PULSE 108; RESP 18; TEMP 36.1; O2SAT 97
[2023-08-19] MEDS: iron sucrose 200 MG in sodium chloride 0.9% (100 ml) 100 ML 220 MG IV (11:16)
[2023-08-19] MEDS: sodium chloride 0.9% 250 ML 100 ML IV (11:16)
[2023-08-19 11:20] LABS: Basophils # 0.1 10^3/uL (0.0-0.1); Basophils % 0.5 %; Eosinophils # 0.1 10^3/uL (0.0-0.8); Eosinophils % 0.9 %; Hematocrit 28.3 % (36-47); Lymphocytes # 4.3 10^3/uL (0.8-4.8); Lymphocytes % 31.5 %; Mean Corpuscular HGB Conc 30.4 g/dL (30-55); Mean Corpuscular Hemoglobin 31.5 pg (27-33); Mean Corpuscular Volume 103.7 fl (85-98); Mean Platelet Volume 9.9 fL (7.4-10.4); Monocytes # 1.2 10^3/uL (0.2-0.9); Monocytes % 9.1 %; Neutrophils % 56.6 %; Nucleated Red Blood Cells % 0.1 %; Platelet Count 559 10^3/cmm (157-399); Red Blood Count 2.73 10^6/uL (3.85-5.65); Red Cell Distribution Width 19.9 % (12.1-15.1); White Blood Count 13.61 10^3/uL (3.29-11.43)
[2023-08-19 11:42] LABS: Iron 347 ug/dL (37-145)
[2023-08-19 12:39] LABS: Percent Saturation 95.3 % (20-50); Total Iron Binding Capacity 364 mcg/dl; Unsaturated Iron Binding < 17 ug/dL (112-347)
[2023-08-20 09:25] LABS: Leukemia Profile (BBPL) See Report
[2023-08-21 09:16] VITALS: BP 127/67; PULSE 88; RESP 16; TEMP 36.6; O2SAT 98
[2023-08-21] MEDS: iron sucrose 200 MG in sodium chloride 0.9% (100 ml) 100 ML 220 MG IV (09:18)
[2023-08-21 12:44] LABS: Smooth Muscle Ab Screen POSITIVE (NEGATIVE)
== END 2023-08-22 23:59 | disposition home or self-care (01) ==
PROVIDERS: Internal Medicine; PCP Family Medicine; Visit Provider Internal Medicine Medical Oncology
DX: D64.9 Anemia, unspecified (principal); Z45.2 Encounter for adjustment and management of vascular access device
CPT/HCPCS: 36415; 36430; 80053; 80503; 82570; 82575; 82607; 82728; 82746; 83010; 83516; 83540; 83550; 83615; 84155; 84156; 84165; 84166; 85025; 85045; 85240; 85245; 85246; 85384; 85610; 85651; 85730; 86038; 86140; 86200; 86225; 86334; 86335; 86431; 86850; 86900; 86920; 88184; 88185; 96365; 99203; 99214; 99215; J1756; J7050; P9040

== ENCOUNTER 2023-08-27 10:15 | Day surgery (SDC) | payer MEDICARE, SELFPAY ==
[2023-08-27] VITALS (9 sets, daily range): BP systolic 113–140; BP diastolic 56–84; PULSE 92–103; RESP 12–24; TEMP 36.1–36.7; O2SAT 92–100; BMI 32.9
--- NOTE | 2023-08-27 10:26 | XR_ITS ---
WS: [id number] Portable AP upright chest, 08/27/2023 Clinical Data: Postop Mediport placement Comparison: None. Findings: No nodules, masses or effusions are seen. The heart is normal. The pulmonary vascularity is not increased. No pneumonia or pneumothorax is seen. The infusion catheter enters the right subclavi an vein and ends in the mid superior vena cava. The aortic arch and descending thoracic aorta show to rtuosity. There are old left upper rib fractures. The distal left clavicle is absent. There is a left shoulder arthroplasty. Impression: 1. Satisfactory placement of right infusion catheter. 2. Atherosclerosis.
--- NOTE | 2023-08-27 10:26 | SC_ITS ---
WS: [id number] C-ARM RADIOGRAPHS CHEST; 4 IMAGES HISTORY: Mediport placement COMPARISON: None available. Intraoperative imaging during RIGHT subclavian Mediport placement. The Mediport overlies the spine. T his could be due to rotation of the patient. This can be reevaluated on follow-up chest radiograph. IMPRESSION: Intraoperative imaging during Mediport placement.
[2023-08-27 11:09] LABS: Glucose Point of Care 142 mg/dL (70-110)
[2023-08-27] MEDS: sodium chloride 0.9% 1,000 ML 30 ML IV (11:14)
--- NOTE | 2023-08-27 11:20 | ANES.PREANE2 ---
Pre-Anesthetic Assessment Height/Weight: Height 1.63 m Weight 87.09 kg Temp Pulse Resp BP Pulse Ox O2 Del Method 98.0 F 98 17 140/77 95 Room Air 08/27/23 11:13 08/27/23 11:13 08/27/23 11:13 08/27/23 11:13 08/27/23 11:13 08/27/23 11:13 Operation Date: 08/27/23 12:00 Proposed Procedures p Portacath Placement(Not Applicable) - Lobo Coleman DO Familial anesthetic complications: none Was Beta Anca taken within 24 hours: N/A Was Clonidine taken within 24 hours: N/A Last intake: Intake Last Liquid Date 08/26/23 Last Liquid Time 19:00 Last Solid Date 08/26/23 Last Solid Time 19:00 Social No alcohol and No tobacco Exam alert, oriented x 3, clear to auscultation bilaterally and regular rate & rhythm Loud systolic murmur up into neck Airway Submandibular: within normal limits Cervical ROM: within normal limits Mallampati: Class II Dentition: false Pulmonary Chronic Obstructive Pulmonary Disease CV/HEM Anemia, Hypertension and Murmur ( mod/severe) Echocardiogram from June 2023 showed pattern of mild LVH. EF of 70 to 75%. Moderate to severe aortic stenosis and mild regurgitation with peak systolic velocity is 377.33 cm/s. LVOT to aortic valve VTI ratio is 0.37, valve area is 1.16 cm/m?. Chronic Renal Insufficiency Hepatic Cirrhosis Metabolic Diabetes Mellitus, Hyperlipidemia and Morbid Obesity [facility] [place] Fibromyalgia Neuropsych Anxiety and Depression Anesthetic Plan ASA status: 3 Anesthesia: MAC Medications/Allergies Home Medications Medication Instructions Recorded Confirmed Last Taken Type calcium carbonate 500 mg calcium 500 mg PO DAILY 05/26/20 08/27/23 08/26/23 History (1,250 mg) tablet (Calcium 500) cetirizine 10 mg capsule 10 mg PO DAILY 05/26/20 08/27/23 08/26/23 History clopidogrel 75 mg tablet 75 mg PO DAILY 05/26/20 08/27/23 08/19/23 History diclofenac sodium 1 % topical gel 2 gm topical QID 05/26/20 08/27/23 08/20/23 History epinephrine 0.3 mg/0.3 mL 0.3 mg IM Q10M PRN Allergic 05/26/20 08/26/23 Unknown History injection, auto-injector Reaction fluticasone propionate 50 2 spray intranasal DAILY 05/26/20 08/27/23 08/26/23 History mcg/actuation nasal spray,suspension lactobacillus combination no.8 3 3,000 mmu cells PO DAILY 05/26/20 08/27/23 08/26/23 History billion cell capsule (Adult Probiotic) lisinopril 10 mg tablet 10 mg PO DAILY 05/26/20 08/27/23 08/26/23 History omega-3 fatty acids 1,000 mg 1,000 mg PO DAILY 05/26/20 08/27/23 08/26/23 History capsule (Fish Oil Concentrate) polyethylene glycol 3350 17 17 gm PO DAILY 05/26/20 08/27/23 08/26/23 History gram/dose oral powder (Miralax) pregabalin 50 mg capsule (Lyrica) 50 mg PO TID 05/26/20 08/27/23 08/26/23 History vitamin B complex 1 tab PO DAILY 05/26/20 08/27/23 08/26/23 History vitamin E (dl, acetate) 45 mg (100 100 unit PO DAILY 05/26/20 08/27/23 08/26/23 History unit) capsule zolpidem 10 mg tablet 10 mg PO ONCE 05/26/20 08/27/23 08/26/23 History pen needle, diabetic 31 gauge x #100 ea 09/26/21 08/21/23 Unknown Rx 3/16 (Sure-Fine Pen [place]) albuterol sulfate 90 mcg/actuation 2 puff inhalation QID PRN Allergic 01/01/23 08/27/23 Unknown History aerosol inhaler Symptoms cyclobenzaprine 10 mg tablet 10 mg PO TID PRN Spasms 01/01/23 08/26/23 Unknown History insulin lispro 100 unit/mL See Rx Instructions SUBCUT TID 01/01/23 08/27/23 08/26/23 History subcutaneous cartridge (Humalog U-100 Insulin) Vitamin C 500 mg PO DAILY 08/26/23 08/27/23 08/26/23 History insulin glargine 100 unit/mL (3 52 unit SUBCUT QAM 08/26/23 08/27/23 08/26/23 History mL) subcutaneous pen (Lantus Solostar U-100 Insulin) iron 1 tab PO DAILY 08/26/23 08/27/23 08/26/23 History bumetanide 1 mg tablet 1 mg PO DAILY 08/27/23 08/27/23 08/26/23 History Allergies Allergy/AdvReac Type Severity Reaction Status Date / Time fluoxetine Allergy ALGY-Hives Verified 08/27/23 10:44 meperidine [From Demerol] Allergy ALGY-Rash Verified 08/27/23 10:44 morphine Allergy Unknown Verified 08/27/23 10:44 naloxone [From Talwin NX] Allergy ALGY-Anaphy Verified 08/27/23 10:44 laxis olopatadine [From Patanase] Allergy ADR-Nose Verified 08/27/23 10:44 Bleed oxycodone Allergy ALGY-Rash Verified 08/27/23 10:44 pentazocine Allergy ALGY-Swell Verified 08/27/23 10:44 Lip/Tongue/Throat Sulfa (Sulfonamide Allergy ALGY-Rash Verified 08/27/23 10:44 Antibiotics) Current Medications Generic Name Dose Route Start Last Admin Trade Name Freq PRN Reason Stop Dose Admin Sodium Chloride 1,000 mls @ 30 mls/hr 08/27/23 10:30 08/27/23 11:14 Sodium Chloride 0.9% IV 08/28/23 10:29 30 mls/hr .Q24H ALEX Administration PFSH Anesthesia Medical History Angiodysplasia of stomach Anemia History of deep vein thrombosis of lower extremity Hyperlipidemia Hypertension GERD (gastroesophageal reflux disease) Type 2 diabetes mellitus Chronic kidney disease Allergic rhinitis Anxiety and depression Lymphocytosis-symptomatc Gamma T lymphocytosis Cirrhosis of liver Fibromyalgia Osteoarthritis COPD (chronic obstructive pulmonary disease) Intestinal obstruction 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 Mother Diabetes Lung disease Sister Cancer breast Social History Smoking and tobacco/nicotine status: never used tobacco/nicotine Alcohol intake: never Substance/Drug Use: never Data Anesthesia Cardiac Studies: No Data to Display
--- NOTE | 2023-08-27 11:57 | W.PM.OPSUD ---
Surgery/Procedure H&P Update DATE OF PROCEDURE: August 27, 2023 DATE H&P PERFORMED: 08/21/23 H&P UPDATE INFORMATION: I have reviewed H&P completed within last 30 days, I have examined patient prior to procedure and No changes to prior documentation PLANNED PROCEDURE: Operation Date: 08/27/23 12:00 Proposed Procedures p Portacath Placement(Not Applicable) - Lobo Coleman DO
[2023-08-27] MEDS: ceFAZolin 2,000 MG in sodium chloride 0.9% (plus) 50 ML 100 MG IV (12:09)
[2023-08-27] MEDS: lidocaine-epi 2% 20 mL INJ INJECTION (12:37)
[2023-08-27] MEDS: heparin, porcine 1,000 unit/mL INJ 10 mL 10000 UNIT IRRIGATION (12:38)
--- NOTE | 2023-08-27 12:49 | PM.OP ---
Operative Report Date of procedure: August 27, 2023 Pre-op diagnosis: Poor venous access Post-op diagnosis: same Procedure done: Mediport placement Implants: PowerPort Specimens removed/disposition: None Surgeon: Lobo Coleman DO Anesthesia: MAC and Local Estimated blood loss (mL): 5 Complications: None apparent Brief History: This very pleasant 73-year-old female with poor venous access. She requested Mediport placement. The risk and benefits were explained and documented. Procedure: The patient was taken to the operating room and placed supine on the operating room table. All bony prominences were padded. She was given IV sedation and monitored throughout the case by the anesthesia personnel. SCDs were placed and turned on. The arms were tucked to the side. Patient received Ancef 2 g preoperatively IV. The bilateral chest wall was prepped and draped in usual sterile fashion using chlorhexidine base prep. Sterile drapes were applied. We did procedure pause prior to beginning. An 18 gauge needle was placed in the right subclavian vein. Dark, nonpulsatile blood was aspirated. A guidewire was placed through the needle centrally toward the atrial/vena caval junction. Fluoroscopy visualized good placement. The needle was removed and the guidewire was clipped to the drape with a hemostat. Further local anesthetic was infiltrated in the soft tissues of the right chest wall and a #15 blade was used to make a horizontal skin incision. A subcutaneous Mediport pocket was created using Bovie cautery, dissecting down through the skin and subcutaneous tissues. Meticulous hemostasis was achieved. The Mediport was sutured in position using 3-0 vicryl suture x2 stitches. A #15 blade was used to make a small skin sanjana around the guidewire insertion area. The Mediport tubing was tunneled through the subcutaneous tissues up to the needle insertion location. A dilator with a peel-away sheath was placed over the guidewire and placed centrally. After measuring the Mediport tubing was cut to length so that the tip would end at the atrial/vena caval junction. The inner cannula and the guidewire were removed, leaving the dilator sheath in place. The Mediport was flushed. The tip of the catheter was inserted through the peel-away sheath and the peel-away sheath removed in the standard fashion. The Mediport was accessed with a straight Fortune needle and dark, nonpulsatile blood was aspirated and flushed using heparinized saline to hep-lock the Mediport. Final fluoroscopy visualization showed no kink in the catheter and the tip of the Mediport tubing near the atrial/vena caval junction. Both skin incisions were thoroughly irrigated and suctioned dry. Meticulous hemostasis noted. The dermis was approximated with 3-0 Vicryl in an interrupted fashion. Skin was closed with Dermabond. Patient was awakened from anesthesia and transferred via her cart to the recovery room in stable condition. All needle, sponge, and instrument counts were correct per the operating personnel x2 counts.
[2023-08-27 13:26] LABS: Glucose Point of Care 128 mg/dL (70-110)
[2023-08-27] MEDS: HYDROcodone-acetaminophen 7.5-325 mg Tablet 1 TAB PO (13:55)
--- NOTE | 2023-08-27 14:06 | ANE.PACU2 ---
Inpatient post-anesthesia follow up: Airway intact: Yes Vital signs: Temperature 97.0 F Pulse Rate 95 Respiratory Rate 20 Blood Pressure 120/58 Pulse Oximetry 95 Oxygen Delivery Me thod Room Air Oxygen Flow Rate Fraction of Inspir ed Oxygen Hydration adequate: Yes Nausea and vomiting: No Pain level: 2 Mental status: Baseline
== END 2023-08-27 14:16 | disposition home or self-care (01) ==
PROVIDERS: PCP Family Medicine; Visit Provider Surgery
PROC: (CPT 36561; principal; 2023-08-27 12:00)
DX: I87.2 Venous insufficiency (chronic) (peripheral) (principal); J44.9 Chronic obstructive pulmonary disease, unspecified; I10 Essential (primary) hypertension; E11.9 Type 2 diabetes mellitus without complications; E78.5 Hyperlipidemia, unspecified; E66.01 Morbid (severe) obesity due to excess calories; Z68.33 Body mass index [BMI] 33.0-33.9, adult; M79.7 Fibromyalgia; Z79.82 Long term (current) use of aspirin
CPT/HCPCS: 36561; 36416; 71045; 77001; 82962; C1788; J0690; J1644; J2250; J2371; J2704; J3010; J7030

== ENCOUNTER 2023-09-17 08:30 | Oncology outpatient (recurring) (ONCR) | payer MEDICARE, SELFPAY ==
[2023-08-23] MEDS: iron sucrose 200 MG in sodium chloride 0.9% (100 ml) 100 ML 220 MG IV (10:50)
[2023-08-23 10:55] VITALS: BP 106/69; PULSE 102; RESP 17; TEMP 36.6; O2SAT 97
[2023-08-23 11:30] VITALS: BP 110/70; PULSE 96; RESP 17; TEMP 36.8; O2SAT 93
[2023-08-26] VITALS (11 sets, daily range): BP systolic 113–142; BP diastolic 61–82; PULSE 86–107; RESP 16–18; TEMP 36.3–36.8; O2SAT 92–98
[2023-08-26 08:24] LABS: Basophils # 0.1 10^3/uL (0.0-0.1); Basophils % 0.4 %; Eosinophils # 0.2 10^3/uL (0.0-0.8); Eosinophils % 1.3 %; Hematocrit 25.2 % (36-47); Lymphocytes # 5.3 10^3/uL (0.8-4.8); Lymphocytes % 29.9 %; Mean Corpuscular HGB Conc 30.2 g/dL (30-55); Mean Corpuscular Hemoglobin 33.6 pg (27-33); Mean Corpuscular Volume 111.5 fl (85-98); Monocytes # 1.3 10^3/uL (0.2-0.9); Monocytes % 7.2 %; Neutrophils # 10.46 10^3/uL (1.8-7.7); Neutrophils % 59.2 %; Nucleated Red Blood Cells # 0.2 /100WBC; Platelet Count 484 10^3/cmm (157-399); Red Blood Count 2.26 10^6/uL (3.85-5.65); Red Cell Distribution Width 24.5 % (12.1-15.1); White Blood Count 17.68 10^3/uL (3.29-11.43)
[2023-08-26] MEDS: sodium chloride 0.9% 250 ML 75 ML IV (08:59)
[2023-08-26] MEDS: iron sucrose 200 MG in sodium chloride 0.9% (100 ml) 100 ML 220 MG IV (08:59)
[2023-08-26 09:23] LABS: Reticulocyte % 14.9 % (0.5-2.0)
[2023-08-26] MEDS: diphenhydrAMINE 25 mg Capsule PO (10:48)
[2023-08-26 11:24] LABS: Lactate Dehydrogenase 220 U/L (135-214)
[2023-08-26] MEDS: FUROsemide 10 mg/mL SDV 2mL 20 MG IVP (12:32)
[2023-08-28 09:12] VITALS: BP 119/65; PULSE 97; RESP 16; TEMP 36.6; O2SAT 98
[2023-08-28] MEDS: iron sucrose 200 MG in sodium chloride 0.9% (100 ml) 100 ML 220 MG IV (09:42)
[2023-08-28 10:30] VITALS: BP 136/86; PULSE 98; RESP 18; TEMP 36.3; O2SAT 99
[2023-09-02 08:47] VITALS: BP 140/66; PULSE 118; RESP 16; TEMP 36.8; O2SAT 95
[2023-09-02 09:14] LABS: Basophils # 0.1 10^3/uL (0.0-0.1); Basophils % 0.7 %; Eosinophils # 0.2 10^3/uL (0.0-0.8); Hematocrit 31.6 % (36-47); Lymphocytes # 3.1 10^3/uL (0.8-4.8); Lymphocytes % 26.6 %; Mean Corpuscular HGB Conc 29.7 g/dL (30-55); Mean Corpuscular Hemoglobin 31.1 pg (27-33); Mean Corpuscular Volume 104.6 fl (85-98); Mean Platelet Volume 10.1 fL (7.4-10.4); Monocytes # 1.1 10^3/uL (0.2-0.9); Monocytes % 9.6 %; Neutrophils # 7.09 10^3/uL (1.8-7.7); Neutrophils % 60.4 %; Nucleated Red Blood Cells % 0.3 %; Platelet Count 365 10^3/cmm (157-399); Red Blood Count 3.02 10^6/uL (3.85-5.65); Red Cell Distribution Width 22.2 % (12.1-15.1); White Blood Count 11.74 10^3/uL (3.29-11.43)
[2023-09-02 10:16] LABS: Alanine Aminotransferase 27 U/L (0-33); Albumin Level 3.7 g/dL (3.5-5.2); Alkaline Phosphatase 96 U/L (35-105); Anion Gap 14.2 (5-19); Aspartate Amino Transferase 43 U/L (0-32); Blood Urea Nitrogen 25 mg/dL (8-23); Calcium 9.1 mg/dL (8.5-10.5); Carbon Dioxide 24 mmol/L (22-29); Chloride 106 mmol/L (98-107); Ferritin 827 ng/mL (15-150); Globulin 2.9 g/dL (1.3-4.6); Glucose 135 mg/dL (65-115); Iron 92 ug/dL (37-145); Osmolality Calculated 296 mOsm/kg (285-295); Potassium 4.2 mmol/L (3.5-5.1); Sodium 140 mmol/L (136-145); Total Bilirubin 0.3 mg/dL (0.15-1.2); Total Iron Binding Capacity 270 mcg/dl; Total Protein 6.6 g/dL (6.6-8.7); Unsaturated Iron Binding 178 ug/dL (112-347)
[2023-09-10] VITALS (10 sets, daily range): BP systolic 117–137; BP diastolic 63–78; PULSE 78–108; RESP 16–18; TEMP 36.1–36.6; O2SAT 92–99
[2023-09-10 09:22] LABS: Basophils # 0.1 10^3/uL (0.0-0.1); Basophils % 0.6 %; Eosinophils # 0.3 10^3/uL (0.0-0.8); Eosinophils % 2.4 %; Hematocrit 22.7 % (36-47); Lymphocytes # 5.2 10^3/uL (0.8-4.8); Lymphocytes % 36.5 %; Mean Corpuscular HGB Conc 29.5 g/dL (30-55); Mean Corpuscular Volume 111.8 fl (85-98); Mean Platelet Volume 10.5 fL (7.4-10.4); Monocytes # 1.6 10^3/uL (0.2-0.9); Monocytes % 10.9 %; Neutrophils # 6.66 10^3/uL (1.8-7.7); Neutrophils % 46.4 %; Nucleated Red Blood Cells # 0.1 /100WBC; Nucleated Red Blood Cells % 0.4 %; Platelet Count 421 10^3/cmm (157-399); Red Blood Count 2.03 10^6/uL (3.85-5.65); White Blood Count 14.32 10^3/uL (3.29-11.43)
[2023-09-10 09:38] LABS: Reticulocyte % 14.2 % (0.5-2.0)
[2023-09-10] MEDS: diphenhydrAMINE 25 mg Capsule PO (10:12)
[2023-09-10 10:15] LABS: Alanine Aminotransferase 23 U/L (0-33); Albumin Level 3.8 g/dL (3.5-5.2); Alkaline Phosphatase 85 U/L (35-105); Anion Gap 15.4 (5-19); Aspartate Amino Transferase 32 U/L (0-32); Blood Urea Nitrogen 25 mg/dL (8-23); Calcium 9.7 mg/dL (8.5-10.5); Carbon Dioxide 23 mmol/L (22-29); Chloride 105 mmol/L (98-107); Globulin 2.5 g/dL (1.3-4.6); Glucose 213 mg/dL (65-115); Lactate Dehydrogenase 188 U/L (135-214); Osmolality Calculated 299 mOsm/kg (285-295); Potassium 4.4 mmol/L (3.5-5.1); Sodium 139 mmol/L (136-145); Total Bilirubin 0.2 mg/dL (0.15-1.2); Total Protein 6.3 g/dL (6.6-8.7)
[2023-09-10 10:28] LABS: LAB Peripheral Smear Sent for Review
[2023-09-10] MEDS: sodium chloride 0.9% 250 mL Bag IV (10:37)
[2023-09-10 14:12] LABS: Iron 219 ug/dL (37-145); Percent Saturation 72.2 % (20-50); Total Iron Binding Capacity 303 mcg/dl; Unsaturated Iron Binding 84 ug/dL (112-347)
[2023-09-17 08:41] VITALS: BP 127/70; PULSE 121; RESP 16; TEMP 36.6; O2SAT 95
[2023-09-17 09:01] LABS: Basophils # 0.1 10^3/uL (0.0-0.1); Basophils % 0.7 %; Eosinophils # 0.3 10^3/uL (0.0-0.8); Hematocrit 29.5 % (36-47); Lymphocytes # 4.2 10^3/uL (0.8-4.8); Lymphocytes % 27.5 %; Mean Corpuscular HGB Conc 30.8 g/dL (30-55); Mean Corpuscular Hemoglobin 32.4 pg (27-33); Monocytes # 1.2 10^3/uL (0.2-0.9); Monocytes % 8.1 %; Neutrophils # 9.27 10^3/uL (1.8-7.7); Neutrophils % 60.9 %; Nucleated Red Blood Cells % 0.1 %; Platelet Count 406 10^3/cmm (157-399); Red Blood Count 2.81 10^6/uL (3.85-5.65); Red Cell Distribution Width 21.2 % (12.1-15.1); White Blood Count 15.19 10^3/uL (3.29-11.43)
== END 2023-09-22 23:59 | disposition home or self-care (01) ==
PROVIDERS: PCP Family Medicine; Visit Provider Internal Medicine Medical Oncology
DX: D64.9 Anemia, unspecified (principal); Z53.9 Procedure and treatment not carried out, unspecified reason
CPT/HCPCS: 36430; 36591; 80053; 82728; 83010; 83540; 83550; 83615; 85025; 85045; 86850; 86900; 86920; 96365; 96375; 99214; J1642; J1756; J1940; J7050; P9016

== ENCOUNTER → 2023-10-01 11:19 | Outpatient (BNVA) | payer MEDICARE, SELFPAY | PROVIDERS: PCP Family Medicine; Visit Provider Surgery | DX: Z95.828 Presence of other vascular implants and grafts (principal) | CPT/HCPCS: 99213 ==

== ENCOUNTER 2023-10-21 10:15 | Oncology outpatient (recurring) (ONCR) | payer MEDICARE, SELFPAY ==
[2023-09-25] VITALS (9 sets, daily range): BP systolic 92–102; BP diastolic 53–60; PULSE 68–96; RESP 17–18; TEMP 36.4–37; O2SAT 93–99
[2023-09-25 09:49] LABS: Basophils # 0.1 10^3/uL (0.0-0.1); Basophils % 0.6 %; Eosinophils # 0.2 10^3/uL (0.0-0.8); Lymphocytes # 3.3 10^3/uL (0.8-4.8); Lymphocytes % 26.9 %; Mean Corpuscular Hemoglobin 33.3 pg (27-33); Mean Corpuscular Volume 114.8 fl (85-98); Mean Platelet Volume 10.4 fL (7.4-10.4); Monocytes # 1.1 10^3/uL (0.2-0.9); Monocytes % 9.1 %; Neutrophils # 7.38 10^3/uL (1.8-7.7); Neutrophils % 60.2 %; Nucleated Red Blood Cells # 0.2 /100WBC; Nucleated Red Blood Cells % 1.4 %; Platelet Count 366 10^3/cmm (157-399); Red Blood Count 1.83 10^6/uL (3.85-5.65); White Blood Count 12.24 10^3/uL (3.29-11.43)
[2023-09-25] MEDS: sodium chloride 0.9% 250 mL Bag IV (10:27)
[2023-09-25] MEDS: acetaminophen 325 mg Tablet 650 MG PO (10:27)
[2023-09-25] MEDS: diphenhydrAMINE 25 mg Capsule PO (10:28)
[2023-09-30 08:41] VITALS: BP 149/67; PULSE 106; RESP 16; TEMP 36.8; O2SAT 96
[2023-09-30 09:03] LABS: Basophils # 0.1 10^3/uL (0.0-0.1); Basophils % 0.5 %; Eosinophils # 0.4 10^3/uL (0.0-0.8); Eosinophils % 3.4 %; Hematocrit 29.6 % (36-47); Lymphocytes # 2.9 10^3/uL (0.8-4.8); Lymphocytes % 26.9 %; Mean Corpuscular HGB Conc 30.4 g/dL (30-55); Mean Corpuscular Hemoglobin 32.1 pg (27-33); Mean Corpuscular Volume 105.7 fl (85-98); Mean Platelet Volume 10.1 fL (7.4-10.4); Monocytes # 1.2 10^3/uL (0.2-0.9); Monocytes % 10.7 %; Neutrophils # 6.32 10^3/uL (1.8-7.7); Neutrophils % 57.9 %; Nucleated Red Blood Cells % 0.3 %; Platelet Count 326 10^3/cmm (157-399); Red Cell Distribution Width 23.2 % (12.1-15.1); White Blood Count 10.91 10^3/uL (3.29-11.43)
[2023-09-30 09:21] LABS: Erythrocyte Sedimentation Rate 16 mm/hr (0-15)
[2023-09-30 09:29] LABS: Alanine Aminotransferase 24 U/L (0-33); Albumin Level 3.3 g/dL (3.5-5.2); Alkaline Phosphatase 83 U/L (35-105); Aspartate Amino Transferase 30 U/L (0-32); Blood Urea Nitrogen 19 mg/dL (8-23); C Reactive Protein 10.7 mg/L (0.0-4.9); Calcium 8.8 mg/dL (8.5-10.5); Carbon Dioxide 21 mmol/L (22-29); Chloride 106 mmol/L (98-107); Ferritin 188 ng/mL (15-150); Globulin 2.6 g/dL (1.3-4.6); Glucose 168 mg/dL (65-115); Iron 229 ug/dL (37-145); Lactate Dehydrogenase 215 U/L (135-214); Osmolality Calculated 294 mOsm/kg (285-295); Percent Saturation 85.7 % (20-50); Sodium 139 mmol/L (136-145); Total Bilirubin 0.2 mg/dL (0.15-1.2); Total Iron Binding Capacity 267 mcg/dl; Total Protein 5.9 g/dL (6.6-8.7); Unsaturated Iron Binding 38 ug/dL (112-347)
[2023-09-30 09:44] LABS: Vitamin B12 1077 pg/mL (232-1245)
[2023-09-30 10:15] LABS: Folate Level > 20.0 ng/mL (4.8-37.3)
[2023-10-03] VITALS (12 sets, daily range): BP systolic 98–120; BP diastolic 50–67; PULSE 79–101; RESP 17–18; TEMP 36.6–36.8; O2SAT 95–98
[2023-10-03 09:30] LABS: Basophils # 0.1 10^3/uL (0.0-0.1); Basophils % 0.6 %; Eosinophils # 0.3 10^3/uL (0.0-0.8); Eosinophils % 2.5 %; Hematocrit 25.9 % (36-47); Lymphocytes # 3.6 10^3/uL (0.8-4.8); Lymphocytes % 27.3 %; Mean Corpuscular HGB Conc 30.5 g/dL (30-55); Mean Corpuscular Hemoglobin 33.1 pg (27-33); Mean Corpuscular Volume 108.4 fl (85-98); Monocytes # 1.2 10^3/uL (0.2-0.9); Monocytes % 8.9 %; Neutrophils # 7.84 10^3/uL (1.8-7.7); Neutrophils % 59.9 %; Nucleated Red Blood Cells % 0 %; Platelet Count 365 10^3/cmm (157-399); Red Blood Count 2.39 10^6/uL (3.85-5.65); Red Cell Distribution Width 21.7 % (12.1-15.1); White Blood Count 13.09 10^3/uL (3.29-11.43)
[2023-10-03] MEDS: sodium chloride 0.9% 250 mL Bag IV (11:30)
[2023-10-07 09:43] LABS: Basophils # 0.1 10^3/uL (0.0-0.1); Basophils % 0.8 %; Eosinophils # 0.2 10^3/uL (0.0-0.8); Eosinophils % 2.3 %; Hematocrit 31.8 % (36-47); Lymphocytes # 2.7 10^3/uL (0.8-4.8); Lymphocytes % 25.7 %; Mean Corpuscular HGB Conc 30.5 g/dL (30-55); Mean Corpuscular Hemoglobin 30.8 pg (27-33); Mean Platelet Volume 9.8 fL (7.4-10.4); Monocytes # 1.2 10^3/uL (0.2-0.9); Monocytes % 10.9 %; Neutrophils # 6.33 10^3/uL (1.8-7.7); Neutrophils % 59.5 %; Nucleated Red Blood Cells % 0 %; Platelet Count 371 10^3/cmm (157-399); Red Blood Count 3.15 10^6/uL (3.85-5.65); Red Cell Distribution Width 23.9 % (12.1-15.1); White Blood Count 10.63 10^3/uL (3.29-11.43)
[2023-10-21 11:21] LABS: Basophils # 0.1 10^3/uL (0.0-0.1); Basophils % 0.7 %; Eosinophils # 0.3 10^3/uL (0.0-0.8); Eosinophils % 3.4 %; Lymphocytes # 2.9 10^3/uL (0.8-4.8); Lymphocytes % 28.2 %; Mean Corpuscular HGB Conc 30.4 g/dL (30-55); Mean Corpuscular Hemoglobin 31.7 pg (27-33); Mean Corpuscular Volume 104.4 fl (85-98); Mean Platelet Volume 10.1 fL (7.4-10.4); Monocytes % 10.2 %; Neutrophils # 5.73 10^3/uL (1.8-7.7); Neutrophils % 56.8 %; Nucleated Red Blood Cells % 0.3 %; Platelet Count 367 10^3/cmm (157-399); Red Blood Count 2.49 10^6/uL (3.85-5.65); Red Cell Distribution Width 20.2 % (12.1-15.1); White Blood Count 10.09 10^3/uL (3.29-11.43)
[2023-10-21] MEDS: acetaminophen 325 mg Tablet 650 MG PO (12:58)
[2023-10-21] MEDS: diphenhydrAMINE 25 mg Capsule PO (12:59)
[2023-10-21] MEDS: FUROsemide 10 mg/mL SDV 2mL 20 MG IVP (12:59)
[2023-10-21] MEDS: sodium chloride 0.9% 250 mL Bag IV (12:59)
[2023-10-21 13:17] VITALS: PULSE 83; RESP 16; TEMP 36.6; O2SAT 94
[2023-10-21 13:35] VITALS: BP 100/69; PULSE 84; RESP 16; TEMP 36.2
[2023-10-21 13:45] VITALS: BP 116/74; PULSE 81; RESP 17; TEMP 36.7; O2SAT 97
[2023-10-21 13:50] VITALS: BP 96/59; PULSE 85; RESP 16; TEMP 36.6
[2023-10-21 15:15] VITALS: BP 98/55; PULSE 83; TEMP 36.4
[2023-10-21 17:10] VITALS: BP 110/58; PULSE 78; RESP 16; TEMP 36.1; O2SAT 97
== END 2023-10-23 23:59 | disposition home or self-care (01) ==
PROVIDERS: PCP Family Medicine; Visit Provider Internal Medicine Medical Oncology
DX: D64.9 Anemia, unspecified (principal); Z53.9 Procedure and treatment not carried out, unspecified reason
CPT/HCPCS: 36430; 36591; 80053; 82607; 82728; 82746; 83010; 83540; 83550; 83615; 85025; 85651; 86140; 86850; 86900; 86920; 99214; J1642; J1940; J7050; P9016

== ENCOUNTER 2023-11-19 10:00 | Oncology outpatient (recurring) (ONCR) | payer MEDICARE, SELFPAY ==
[2023-10-28 07:56] VITALS: BP 105/70; PULSE 99; RESP 18; TEMP 36.2; O2SAT 95
[2023-10-28 08:17] LABS: Basophils # 0.1 10^3/uL (0.0-0.1); Basophils % 0.8 %; Eosinophils # 0.4 10^3/uL (0.0-0.8); Eosinophils % 4.1 %; Hematocrit 34.3 % (36-47); Lymphocytes # 2.8 10^3/uL (0.8-4.8); Lymphocytes % 31.6 %; Mean Corpuscular HGB Conc 31.2 g/dL (30-55); Mean Corpuscular Hemoglobin 31.8 pg (27-33); Mean Corpuscular Volume 102.1 fl (85-98); Neutrophils # 4.49 10^3/uL (1.8-7.7); Neutrophils % 51.8 %; Nucleated Red Blood Cells % 0 %; Platelet Count 398 10^3/cmm (157-399); Red Blood Count 3.36 10^6/uL (3.85-5.65); Red Cell Distribution Width 17.6 % (12.1-15.1); White Blood Count 8.69 10^3/uL (3.29-11.43)
[2023-10-28 08:24] LABS: Reticulocyte % 3.7 % (0.5-2.0)
[2023-10-28 08:39] LABS: Alanine Aminotransferase 26 U/L (0-33); Albumin Level 3.6 g/dL (3.5-5.2); Alkaline Phosphatase 92 U/L (35-105); Anion Gap 15.4 (5-19); Aspartate Amino Transferase 34 U/L (0-32); Blood Urea Nitrogen 29 mg/dL (8-23); Calcium 9.6 mg/dL (8.5-10.5); Carbon Dioxide 23 mmol/L (22-29); Chloride 104 mmol/L (98-107); Globulin 3.1 g/dL (1.3-4.6); Glucose 157 mg/dL (65-115); Osmolality Calculated 295 mOsm/kg (285-295); Potassium 4.4 mmol/L (3.5-5.1); Sodium 138 mmol/L (136-145); Total Bilirubin 0.2 mg/dL (0.15-1.2); Total Protein 6.7 g/dL (6.6-8.7)
[2023-10-28 08:41] LABS: Lactate Dehydrogenase 232 U/L (135-214)
[2023-11-04 08:46] LABS: Basophils # 0.1 10^3/uL (0.0-0.1); Basophils % 0.6 %; Eosinophils # 0.3 10^3/uL (0.0-0.8); Eosinophils % 2.4 %; Hematocrit 31.2 % (36-47); Lymphocytes # 3.1 10^3/uL (0.8-4.8); Lymphocytes % 28.3 %; Mean Corpuscular HGB Conc 31.1 g/dL (30-55); Mean Corpuscular Hemoglobin 31.8 pg (27-33); Mean Corpuscular Volume 102.3 fl (85-98); Mean Platelet Volume 9.7 fL (7.4-10.4); Monocytes # 1.2 10^3/uL (0.2-0.9); Monocytes % 11.5 %; Neutrophils # 6.13 10^3/uL (1.8-7.7); Neutrophils % 56.7 %; Nucleated Red Blood Cells % 0 %; Platelet Count 371 10^3/cmm (157-399); Red Blood Count 3.05 10^6/uL (3.85-5.65); Red Cell Distribution Width 16.1 % (12.1-15.1); White Blood Count 10.81 10^3/uL (3.29-11.43)
[2023-11-11 08:46] LABS: Basophils # 0.1 10^3/uL (0.0-0.1); Basophils % 0.7 %; Eosinophils # 0.3 10^3/uL (0.0-0.8); Eosinophils % 2.9 %; Hematocrit 29.3 % (36-47); Lymphocytes # 3.5 10^3/uL (0.8-4.8); Lymphocytes % 31.6 %; Mean Corpuscular HGB Conc 30.7 g/dL (30-55); Mean Corpuscular Hemoglobin 31.6 pg (27-33); Mean Corpuscular Volume 102.8 fl (85-98); Mean Platelet Volume 9.4 fL (7.4-10.4); Monocytes # 1.1 10^3/uL (0.2-0.9); Monocytes % 10.2 %; Neutrophils # 5.93 10^3/uL (1.8-7.7); Neutrophils % 53.5 %; Nucleated Red Blood Cells % 0 %; Platelet Count 405 10^3/cmm (157-399); Red Blood Count 2.85 10^6/uL (3.85-5.65); Red Cell Distribution Width 16.5 % (12.1-15.1); White Blood Count 11.08 10^3/uL (3.29-11.43)
[2023-11-19 10:25] LABS: Basophils # 0.1 10^3/uL (0.0-0.1); Basophils % 0.4 %; Eosinophils # 0.2 10^3/uL (0.0-0.8); Eosinophils % 1.6 %; Hematocrit 27.9 % (36-47); Lymphocytes # 3.3 10^3/uL (0.8-4.8); Lymphocytes % 26.8 %; Mean Corpuscular HGB Conc 31.5 g/dL (30-55); Mean Corpuscular Volume 104.5 fl (85-98); Monocytes # 1.1 10^3/uL (0.2-0.9); Monocytes % 8.6 %; Neutrophils # 7.54 10^3/uL (1.8-7.7); Neutrophils % 61.9 %; Nucleated Red Blood Cells % 0.2 %; Platelet Count 375 10^3/cmm (157-399); Red Blood Count 2.67 10^6/uL (3.85-5.65); Red Cell Distribution Width 17.5 % (12.1-15.1); White Blood Count 12.18 10^3/uL (3.29-11.43)
== END 2023-11-21 23:59 | disposition home or self-care (01) ==
PROVIDERS: PCP Family Medicine; Visit Provider Internal Medicine Medical Oncology
DX: D64.9 Anemia, unspecified; Z53.9 Procedure and treatment not carried out, unspecified reason
CPT/HCPCS: 36591; 80053; 83010; 83615; 85025; 85045; J1642

== ENCOUNTER 2023-11-25 07:47 | Oncology outpatient (recurring) (ONCR) | payer MEDICARE, SELFPAY ==
[2023-11-25 08:20] LABS: Basophils # 0.1 10^3/uL (0.0-0.1); Basophils % 0.6 %; Eosinophils # 0.2 10^3/uL (0.0-0.8); Eosinophils % 2.2 %; Hematocrit 30.2 % (36-47); Lymphocytes # 2.9 10^3/uL (0.8-4.8); Lymphocytes % 28.8 %; Mean Corpuscular HGB Conc 31.1 g/dL (30-55); Mean Platelet Volume 9.5 fL (7.4-10.4); Monocytes # 0.8 10^3/uL (0.2-0.9); Monocytes % 7.4 %; Neutrophils # 6.11 10^3/uL (1.8-7.7); Neutrophils % 60.6 %; Nucleated Red Blood Cells % 0 %; Platelet Count 415 10^3/cmm (157-399); Red Blood Count 2.85 10^6/uL (3.85-5.65); Red Cell Distribution Width 16.7 % (12.1-15.1); White Blood Count 10.09 10^3/uL (3.29-11.43)
[2023-11-25 08:21] LABS: Reticulocyte % 6.3 % (0.5-2.0)
[2023-11-25 08:43] LABS: Alanine Aminotransferase 27 U/L (0-33); Albumin Level 3.9 g/dL (3.5-5.2); Alkaline Phosphatase 86 U/L (35-105); Anion Gap 13.2 (5-19); Aspartate Amino Transferase 32 U/L (0-32); Blood Urea Nitrogen 36 mg/dL (8-23); Calcium 9.1 mg/dL (8.5-10.5); Carbon Dioxide 24 mmol/L (22-29); Chloride 101 mmol/L (98-107); Glucose 133 mg/dL (65-115); Lactate Dehydrogenase 201 U/L (135-214); Osmolality Calculated 288 mOsm/kg (285-295); Potassium 4.2 mmol/L (3.5-5.1); Sodium 134 mmol/L (136-145); Total Bilirubin 0.2 mg/dL (0.15-1.2); Total Protein 6.9 g/dL (6.6-8.7)
[2023-11-25 10:27] LABS: Ferritin 116 ng/mL (15-150); Iron 113 ug/dL (37-145); Percent Saturation 33.6 % (20-50); Total Iron Binding Capacity 336 mcg/dl; Unsaturated Iron Binding 223 ug/dL (112-347)
== END 2023-12-22 23:59 | disposition home or self-care (01) ==
PROVIDERS: PCP Family Medicine; Visit Provider Internal Medicine Medical Oncology
DX: D64.9 Anemia, unspecified (principal); E11.65 Type 2 diabetes mellitus with hyperglycemia; Z79.899 Other long term (current) drug therapy; M79.605 Pain in left leg
CPT/HCPCS: 36591; 80053; 82728; 83010; 83540; 83550; 83615; 85025; 85045; 99214; J1642

== ENCOUNTER 2023-11-26 07:58 | Outpatient (CLI) | payer MEDICARE, SELFPAY ==
--- NOTE | 2023-11-26 08:00 | USCV_ITS ---
Moira Mckinnon Age: 73 Gender: F : 1950 Exam Date: 11/26/2023 08:14 Ordering Phys: Humphrey Griffith MD Technologist: RALF Exam Location: [facility] [place] Indication: HISTORY OF DVT LT LEG. PT HAS FILTER. LT LEG PAIN HISTORY: PAIN AND SWELLING LT LEG PROCEDURES: Venous duplex imaging was performed in only the left lower extremity. The following venous structures were evaluated: common femoral vein, profunda vein, proximal portion of the greater saphenous vein, superficial femoral vein, and the popliteal vein. In addition, the posterior tibial and peroneal trunk were evaluated. Serial compression, augmentation maneuvers, and spectral Doppler flow evaluation were performed. FINDINGS: Normal 2-D Doppler and augmentation and compressibility throughout the lower extremity venous structures. Additional imaging through the proximal calf veins also reveals no thrombus. Limited evaluation of the greater saphenous vein is patent with no thrombus. CONCLUSIONS No evidence of acute left lower extremity DVT. Sequalae of chronic DVT LEFT femoral vein with wall thickening. FV is patent Colby Gay MD (Electronically Signed) Final Date: 26 November 2023 17:02 S
== END 2023-11-26 07:59 | disposition home or self-care (01) ==
LOC: RAD 07:58
PROVIDERS: PCP Family Medicine; Visit Provider Internal Medicine Medical Oncology
DX: M79.605 Pain in left leg (principal); M79.89 Other specified soft tissue disorders; Z86.718 Personal history of other venous thrombosis and embolism; I87.8 Other specified disorders of veins
CPT/HCPCS: 93971

== ENCOUNTER 2024-01-08 08:00 | Oncology outpatient (recurring) (ONCR) | payer MEDICARE, SELFPAY ==
[2023-12-23 08:07] LABS: Reticulocyte % 9.1 % (0.5-2.0)
[2023-12-23 08:08] LABS: Basophils # 0.1 10^3/uL (0.0-0.1); Eosinophils # 0.2 10^3/uL (0.0-0.8); Eosinophils % 2.5 %; Hematocrit 29.7 % (36-47); Lymphocytes # 3.5 10^3/uL (0.8-4.8); Lymphocytes % 37.6 %; Mean Corpuscular HGB Conc 30.6 g/dL (30-55); Mean Corpuscular Hemoglobin 33.6 pg (27-33); Mean Corpuscular Volume 109.6 fl (85-98); Mean Platelet Volume 9.6 fL (7.4-10.4); Monocytes # 0.9 10^3/uL (0.2-0.9); Neutrophils # 4.44 10^3/uL (1.8-7.7); Neutrophils % 48.2 %; Nucleated Red Blood Cells # 0.1 /100WBC; Nucleated Red Blood Cells % 0.7 %; Platelet Count 430 10^3/cmm (157-399); Red Blood Count 2.71 10^6/uL (3.85-5.65); Red Cell Distribution Width 16.9 % (12.1-15.1)
[2023-12-23 08:31] LABS: Alanine Aminotransferase 26 U/L (0-33); Albumin Level 3.8 g/dL (3.5-5.2); Alkaline Phosphatase 97 U/L (35-105); Anion Gap 16.1 (5-19); Aspartate Amino Transferase 35 U/L (0-32); Blood Urea Nitrogen 20 mg/dL (8-23); Calcium 9.4 mg/dL (8.5-10.5); Carbon Dioxide 24 mmol/L (22-29); Chloride 105 mmol/L (98-107); Ferritin 98 ng/mL (15-150); Glucose 191 mg/dL (65-115); Iron 313 ug/dL (37-145); Lactate Dehydrogenase 211 U/L (135-214); Osmolality Calculated 300 mOsm/kg (285-295); Potassium 4.1 mmol/L (3.5-5.1); Sodium 141 mmol/L (136-145); Total Bilirubin 0.2 mg/dL (0.15-1.2); Total Protein 6.8 g/dL (6.6-8.7)
[2023-12-23 08:57] LABS: Percent Saturation 97.2 % (20-50); Total Iron Binding Capacity 322 mcg/dl; Unsaturated Iron Binding 9 ug/dL (112-347)
--- NOTE | 2023-12-23 10:17 | ECG_ITS ---
[facility] Test Date: 2023-12-23 Pat Name: Moira Mckinnon Department: Room: Gender: Female Patient Support Assistant: : 1950 Requested By: Humphrey Hernandez Order Number: [id number] Diaz MD: Juan A Rene M.D. Measurements Intervals [place]ard Rate: 100 P: 50 KS: 139 QRS: 15 QRSD: 75 T: 54 QT: 323 QTc: 418 Interpretive Statements SINUS TACHYCARDIA MINIMAL VOLTAGE CRITERIA FOR LVH, CONSIDER NORMAL VARIANT [MEETS CRITERIA IN ONE OF: R(aVL), S(V1), R(V5), R(V5/V6)+S(V1)] ABNORMAL RHYTHM ECG No previous ECG available for comparison Electronically Signed On 12-23-2023 16:32:51 CDT by Juan A Rene M.D. [email or web address]
[2023-12-24 10:32] LABS: Iron 44 ug/dL (37-145); Percent Saturation 12.6 % (20-50); Total Iron Binding Capacity 347 mcg/dl; Unsaturated Iron Binding 303 ug/dL (112-347)
[2023-12-31 13:14] LABS: Soluble Transferrin Receptor 2.04 mg/L (0.76-1.76)
[2024-01-08] MEDS: iron sucrose 500 MG in sodium chloride 0.9% 250 ML 78 MG IV (08:59)
[2024-01-08 11:59] VITALS: BP 128/75; PULSE 90; RESP 16; TEMP 36.6; O2SAT 93
== END 2024-01-21 23:59 | disposition home or self-care (01) ==
PROVIDERS: PCP Family Medicine; Visit Provider Internal Medicine Medical Oncology
DX: D50.0 Iron deficiency anemia secondary to blood loss (chronic) (principal); Z53.9 Procedure and treatment not carried out, unspecified reason
CPT/HCPCS: 36591; 80053; 82274; 82728; 83010; 83540; 83550; 83615; 84238; 85025; 85045; 93005; 96365; 99214; J1642; J1756; J7050

== ENCOUNTER 2024-02-19 09:00 | Oncology outpatient (recurring) (ONCR) | payer MEDICARE, SELFPAY ==
[2024-01-23 08:36] VITALS: BP 104/65; PULSE 83; RESP 16; TEMP 36.4; O2SAT 93
[2024-01-23] MEDS: iron sucrose 500 MG in sodium chloride 0.9% 250 ML 78 MG IV (08:41)
[2024-01-23 11:43] VITALS: BP 145/76; PULSE 66; RESP 18; TEMP 36.4; O2SAT 96
[2024-02-19] VITALS (7 sets, daily range): BP systolic 117–148; BP diastolic 65–78; PULSE 72–76; RESP 17–18; TEMP 36.3–36.6; O2SAT 91–98
[2024-02-19 09:21] LABS: Basophils # 0.1 10^3/uL (0.0-0.1); Basophils % 0.6 %; Eosinophils # 0.4 10^3/uL (0.0-0.8); Hematocrit 24.5 % (36-47); Lymphocytes # 4.5 10^3/uL (0.8-4.8); Lymphocytes % 38.7 %; Mean Corpuscular HGB Conc 29.8 g/dL (30-55); Mean Corpuscular Hemoglobin 30.3 pg (27-33); Mean Corpuscular Volume 101.7 fl (85-98); Mean Platelet Volume 9.9 fL (7.4-10.4); Monocytes % 8.4 %; Neutrophils % 48.8 %; Nucleated Red Blood Cells # 0.1 /100WBC; Nucleated Red Blood Cells % 0.5 %; Platelet Count 498 10^3/cmm (157-399); Red Blood Count 2.41 10^6/uL (3.85-5.65); Red Cell Distribution Width 17.8 % (12.1-15.1); White Blood Count 11.49 10^3/uL (3.29-11.43)
[2024-02-19 09:43] LABS: Alanine Aminotransferase 22 U/L (0-33); Albumin Level 3.5 g/dL (3.5-5.2); Alkaline Phosphatase 95 U/L (35-105); Anion Gap 14.1 (5-19); Aspartate Amino Transferase 36 U/L (0-32); Blood Urea Nitrogen 24 mg/dL (8-23); Calcium 8.5 mg/dL (8.5-10.5); Carbon Dioxide 23 mmol/L (22-29); Chloride 108 mmol/L (98-107); Ferritin 110 ng/mL (15-150); Globulin 3.1 g/dL (1.3-4.6); Glucose 140 mg/dL (65-115); Iron 19 ug/dL (37-145); Osmolality Calculated 298 mOsm/kg (285-295); Percent Saturation 5.2 % (20-50); Potassium 4.1 mmol/L (3.5-5.1); Sodium 141 mmol/L (136-145); Total Bilirubin 0.2 mg/dL (0.15-1.2); Total Iron Binding Capacity 361 mcg/dl; Total Protein 6.6 g/dL (6.6-8.7); Unsaturated Iron Binding 342 ug/dL (112-347)
[2024-02-19] MEDS: diphenhydrAMINE 25 mg Capsule PO (12:12)
[2024-02-19] MEDS: acetaminophen 325 mg Tablet 650 MG PO (12:12)
[2024-02-19] MEDS: sodium chloride 0.9% 250 mL Bag IV (12:13)
[2024-02-19] MEDS: FUROsemide 10 mg/mL SDV 2mL 20 MG IVP (14:18)
== END 2024-02-21 23:59 | disposition home or self-care (01) ==
PROVIDERS: Nurse Practitioner Family; PCP Family Medicine; Visit Provider Internal Medicine Medical Oncology
DX: Z53.9 Procedure and treatment not carried out, unspecified reason (principal); D64.9 Anemia, unspecified; Z95.828 Presence of other vascular implants and grafts; D72.820 Lymphocytosis (symptomatic); Z79.899 Other long term (current) drug therapy
CPT/HCPCS: 36430; 80053; 82728; 83540; 83550; 85025; 86850; 86900; 86920; 96365; 96366; 99214; J1756; J1940; J7050; P9016; P9040

== ENCOUNTER 2024-03-09 12:15 | Oncology outpatient (recurring) (ONCR) | payer MEDICARE, SELFPAY ==
[2024-02-24 08:24] LABS: Basophils # 0.1 10^3/uL (0.0-0.1); Basophils % 0.9 %; Eosinophils # 0.4 10^3/uL (0.0-0.8); Eosinophils % 3.6 %; Hematocrit 32.1 % (36-47); Lymphocytes # 4.6 10^3/uL (0.8-4.8); Lymphocytes % 47.1 %; Mean Corpuscular HGB Conc 30.5 g/dL (30-55); Mean Corpuscular Hemoglobin 28.7 pg (27-33); Mean Corpuscular Volume 93.9 fl (85-98); Monocytes # 0.9 10^3/uL (0.2-0.9); Monocytes % 9.2 %; Neutrophils # 3.78 10^3/uL (1.8-7.7); Neutrophils % 38.7 %; Nucleated Red Blood Cells % 0 %; Platelet Count 454 10^3/cmm (157-399); Red Blood Count 3.42 10^6/uL (3.85-5.65); Red Cell Distribution Width 20.3 % (12.1-15.1); White Blood Count 9.78 10^3/uL (3.29-11.43)
[2024-02-24 08:40] LABS: Alanine Aminotransferase 22 U/L (0-33); Albumin Level 3.5 g/dL (3.5-5.2); Alkaline Phosphatase 93 U/L (35-105); Anion Gap 15.1 (5-19); Aspartate Amino Transferase 38 U/L (0-32); Blood Urea Nitrogen 22 mg/dL (8-23); Calcium 9.3 mg/dL (8.5-10.5); Carbon Dioxide 22 mmol/L (22-29); Chloride 107 mmol/L (98-107); Globulin 3.2 g/dL (1.3-4.6); Glucose 168 mg/dL (65-115); Osmolality Calculated 297 mOsm/kg (285-295); Potassium 4.1 mmol/L (3.5-5.1); Sodium 140 mmol/L (136-145); Total Bilirubin 0.2 mg/dL (0.15-1.2); Total Protein 6.7 g/dL (6.6-8.7)
[2024-02-24] MEDS: iron sucrose 500 MG in sodium chloride 0.9% 250 ML 78 MG IV (10:41)
[2024-02-24] MEDS: sodium chloride 0.9% 250 ML 75 ML IV (10:42)
[2024-02-24] MEDS: SODIUM CHLORIDE 0.9% IV (13:49)
[2024-02-24] MEDS: BEVACIZUMAB AWWB IV (13:49)
[2024-02-24 14:02] LABS: Glucose Urine UA Norm (Normal); Ketones Urine Negative (Negative); Protein Urine Neg (Negative); Specific Gravity, Urine 1.005 (1.005-1.030); Urine Appearance Clear (CLEAR); Urine Color Yellow (Yellow); pH Urine 6.5 (5-7)
[2024-02-24 14:03] LABS: Add Urine Microscopic? YES; Bilirubin Urine Neg (Negative); Blood Urine Neg (Negative); Leukocyte Esterase Urine 1+ (Negative); Nitrate Urine Positive (Negative); Urobilinogen Urine Neg (Negative)
[2024-02-24 14:04] LABS: Add Urine Culture? Yes; Bacteria Urine 2+ /hpf; RBC Urine 0-4 /hpf (0-2); Squamous Epithelial Cell Urine 0-4 /hpf (0-5)
[2024-02-24 15:25] VITALS: BP 138/73; PULSE 65; RESP 18; TEMP 36; O2SAT 93
[2024-03-09 12:03] LABS: Basophils # 0.1 10^3/uL (0.0-0.1); Basophils % 0.7 %; Eosinophils # 0.2 10^3/uL (0.0-0.8); Eosinophils % 1.4 %; Hematocrit 30.5 % (36-47); Lymphocytes # 6.6 10^3/uL (0.8-4.8); Lymphocytes % 48.7 %; Mean Corpuscular HGB Conc 31.1 g/dL (30-55); Mean Corpuscular Hemoglobin 30.5 pg (27-33); Mean Corpuscular Volume 98.1 fl (85-98); Mean Platelet Volume 9.9 fL (7.4-10.4); Monocytes # 1.2 10^3/uL (0.2-0.9); Monocytes % 8.9 %; Neutrophils # 5.38 10^3/uL (1.8-7.7); Neutrophils % 39.9 %; Nucleated Red Blood Cells % 0.1 %; Platelet Count 408 10^3/cmm (157-399); Red Blood Count 3.11 10^6/uL (3.85-5.65); Red Cell Distribution Width 22.4 % (12.1-15.1); White Blood Count 13.52 10^3/uL (3.29-11.43)
[2024-03-09 12:27] LABS: Alanine Aminotransferase 24 U/L (0-33); Albumin Level 3.9 g/dL (3.5-5.2); Alkaline Phosphatase 109 U/L (35-105); Aspartate Amino Transferase 41 U/L (0-32); Blood Urea Nitrogen 20 mg/dL (8-23); Calcium 9.7 mg/dL (8.5-10.5); Carbon Dioxide 23 mmol/L (22-29); Chloride 109 mmol/L (98-107); Globulin 3.1 g/dL (1.3-4.6); Glucose 85 mg/dL (65-115); Osmolality Calculated 296 mOsm/kg (285-295); Sodium 142 mmol/L (136-145); Total Bilirubin 0.2 mg/dL (0.15-1.2)
[2024-03-09 12:34] LABS: Creatinine Clr Calc Pharmacy 52.3865
[2024-03-09 14:13] LABS: Add Urine Microscopic? YES; Bilirubin Urine Neg (Negative); Blood Urine Neg (Negative); Glucose Urine UA Norm (Normal); Ketones Urine Negative (Negative); Leukocyte Esterase Urine 1+ (Negative); Nitrate Urine Negative (Negative); Protein Urine Neg (Negative); Specific Gravity, Urine 1.005 (1.005-1.030); Urine Appearance Clear (CLEAR); Urine Color Yellow (Yellow); Urobilinogen Urine Neg (Negative); pH Urine 7 (5-7)
[2024-03-09 14:15] LABS: Bacteria Urine TRACE /hpf; RBC Urine RARE /hpf (0-2); Squamous Epithelial Cell Urine 0-4 /hpf (0-5); WBC Urine 0-4 /hpf (0-5)
[2024-03-09 14:16] LABS: Add Urine Culture? No
[2024-03-09] MEDS: sodium chloride 0.9% 250 ML 75 ML IV (14:27)
[2024-03-09] MEDS: iron sucrose 300 MG in sodium chloride 0.9% (100 ml) 100 ML 220 MG IV (14:28)
[2024-03-09] MEDS: SODIUM CHLORIDE 0.9% IV (15:03)
[2024-03-09] MEDS: BEVACIZUMAB AWWB IV (15:03)
[2024-03-09 16:10] VITALS: BP 148/83; PULSE 75; RESP 16; TEMP 36.3; O2SAT 98
== END 2024-03-22 23:59 | disposition home or self-care (01) ==
PROVIDERS: Nurse Practitioner Family; PCP Family Medicine; Visit Provider Internal Medicine Medical Oncology
DX: Z53.9 Procedure and treatment not carried out, unspecified reason (principal); D50.0 Iron deficiency anemia secondary to blood loss (chronic); Z51.12 Encounter for antineoplastic immunotherapy; Z79.899 Other long term (current) drug therapy
CPT/HCPCS: 80053; 81001; 85025; 96365; 96366; 96367; 96413; 96415; 99214; J1756; J7050; Q5107

== ENCOUNTER 2024-04-20 12:00 | Oncology outpatient (recurring) (ONCR) | payer MEDICARE, SELFPAY ==
[2024-03-23 12:20] LABS: Basophils # 0.1 10^3/uL (0.0-0.1); Basophils % 0.5 %; Eosinophils # 0.2 10^3/uL (0.0-0.8); Eosinophils % 1.3 %; Hematocrit 32.6 % (36-47); Lymphocytes # 6.2 10^3/uL (0.8-4.8); Lymphocytes % 47.7 %; Mean Corpuscular HGB Conc 30.7 g/dL (30-55); Mean Corpuscular Hemoglobin 31.1 pg (27-33); Mean Corpuscular Volume 101.2 fl (85-98); Mean Platelet Volume 10.2 fL (7.4-10.4); Monocytes # 1.3 10^3/uL (0.2-0.9); Monocytes % 9.6 %; Neutrophils # 5.29 10^3/uL (1.8-7.7); Neutrophils % 40.5 %; Nucleated Red Blood Cells % 0 %; Platelet Count 402 10^3/cmm (157-399); Red Blood Count 3.22 10^6/uL (3.85-5.65); Red Cell Distribution Width 20.5 % (12.1-15.1); White Blood Count 13.06 10^3/uL (3.29-11.43)
[2024-03-23 12:22] LABS: Alanine Aminotransferase 23 U/L (0-33); Albumin Level 3.8 g/dL (3.5-5.2); Alkaline Phosphatase 111 U/L (35-105); Anion Gap 12.4 (5-19); Aspartate Amino Transferase 33 U/L (0-32); Blood Urea Nitrogen 26 mg/dL (8-23); Calcium 9.3 mg/dL (8.5-10.5); Carbon Dioxide 24 mmol/L (22-29); Chloride 105 mmol/L (98-107); Globulin 3.2 g/dL (1.3-4.6); Glucose 142 mg/dL (65-115); Osmolality Calculated 291 mOsm/kg (285-295); Potassium 4.4 mmol/L (3.5-5.1); Sodium 137 mmol/L (136-145); Total Bilirubin 0.2 mg/dL (0.15-1.2)
[2024-03-23] MEDS: sodium chloride 0.9% 250 ML 75 ML IV (14:25)
[2024-03-23] MEDS: BEVACIZUMAB AWWB IV (14:26)
[2024-03-23] MEDS: SODIUM CHLORIDE 0.9% IV (14:26)
[2024-03-23 15:08] VITALS: BP 158/70; PULSE 75; RESP 18; TEMP 35.8; O2SAT 93
[2024-04-06 12:31] LABS: Basophils # 0.1 10^3/uL (0.0-0.1); Basophils % 0.6 %; Eosinophils # 0.2 10^3/uL (0.0-0.8); Eosinophils % 1.7 %; Hematocrit 30.2 % (36-47); Lymphocytes # 6.2 10^3/uL (0.8-4.8); Lymphocytes % 44.3 %; Mean Corpuscular HGB Conc 31.5 g/dL (30-55); Mean Corpuscular Hemoglobin 30.8 pg (27-33); Mean Corpuscular Volume 98.1 fl (85-98); Mean Platelet Volume 10.2 fL (7.4-10.4); Monocytes # 1.5 10^3/uL (0.2-0.9); Monocytes % 10.6 %; Neutrophils # 5.91 10^3/uL (1.8-7.7); Neutrophils % 42.4 %; Nucleated Red Blood Cells % 0 %; Platelet Count 409 10^3/cmm (157-399); Red Blood Count 3.08 10^6/uL (3.85-5.65); Red Cell Distribution Width 17.9 % (12.1-15.1); White Blood Count 13.92 10^3/uL (3.29-11.43)
[2024-04-06 12:58] LABS: Alanine Aminotransferase 29 U/L (0-33); Albumin Level 3.8 g/dL (3.5-5.2); Alkaline Phosphatase 97 U/L (35-105); Anion Gap 15.1 (5-19); Aspartate Amino Transferase 46 U/L (0-32); Blood Urea Nitrogen 25 mg/dL (8-23); Calcium 9.4 mg/dL (8.5-10.5); Carbon Dioxide 23 mmol/L (22-29); Chloride 106 mmol/L (98-107); Creatinine Clr Calc Pharmacy 47.7031; Globulin 3.2 g/dL (1.3-4.6); Glucose 86 mg/dL (65-115); Osmolality Calculated 294 mOsm/kg (285-295); Potassium 4.1 mmol/L (3.5-5.1); Sodium 140 mmol/L (136-145); Total Bilirubin 0.2 mg/dL (0.15-1.2)
[2024-04-06 14:30] VITALS: BP 130/60; PULSE 83; RESP 16; TEMP 36.4; O2SAT 96
[2024-04-06] MEDS: iron sucrose 200 MG in sodium chloride 0.9% (100 ml) 100 ML 220 MG IV (14:48)
[2024-04-06] MEDS: sodium chloride 0.9% 250 ML 75 ML IV (14:48)
[2024-04-06 15:30] LABS: Add Urine Microscopic? YES; Bacteria Urine TRACE /hpf; Bilirubin Urine Neg (Negative); Blood Urine Neg (Negative); Glucose Urine UA Norm (Normal); Ketones Urine Negative (Negative); Leukocyte Esterase Urine Trace (Negative); Nitrate Urine Negative (Negative); Protein Urine Neg (Negative); Specific Gravity, Urine 1.005 (1.005-1.030); Squamous Epithelial Cell Urine 0-4 /hpf (0-5); Urine Appearance Clear (CLEAR); Urine Color Yellow (Yellow); Urobilinogen Urine Norm (Negative); WBC Urine 0-4 /hpf (0-5); pH Urine 6 (5-7)
[2024-04-06] MEDS: BEVACIZUMAB AWWB IV (15:30)
[2024-04-06] MEDS: SODIUM CHLORIDE 0.9% IV (15:30)
[2024-04-06 16:05] VITALS: BP 148/77; PULSE 80; RESP 16; TEMP 36.2; O2SAT 94
[2024-04-20 12:45] LABS: Basophils # 0.1 10^3/uL (0.0-0.1); Basophils % 0.7 %; Eosinophils # 0.2 10^3/uL (0.0-0.8); Eosinophils % 1.4 %; Hematocrit 32.6 % (36-47); Lymphocytes # 5.7 10^3/uL (0.8-4.8); Lymphocytes % 44.5 %; Mean Corpuscular HGB Conc 30.7 g/dL (30-55); Mean Corpuscular Hemoglobin 29.9 pg (27-33); Mean Corpuscular Volume 97.3 fl (85-98); Mean Platelet Volume 10.4 fL (7.4-10.4); Monocytes # 1.5 10^3/uL (0.2-0.9); Monocytes % 11.3 %; Neutrophils # 5.38 10^3/uL (1.8-7.7); Neutrophils % 41.8 %; Nucleated Red Blood Cells % 0 %; Platelet Count 442 10^3/cmm (157-399); Red Blood Count 3.35 10^6/uL (3.85-5.65); Red Cell Distribution Width 17.7 % (12.1-15.1); White Blood Count 12.89 10^3/uL (3.29-11.43)
[2024-04-20 13:03] LABS: Alanine Aminotransferase 28 U/L (0-33); Albumin Level 4.1 g/dL (3.5-5.2); Alkaline Phosphatase 107 U/L (35-105); Anion Gap 16.8 (5-19); Aspartate Amino Transferase 44 U/L (0-32); Blood Urea Nitrogen 18 mg/dL (8-23); Calcium 9.5 mg/dL (8.5-10.5); Carbon Dioxide 21 mmol/L (22-29); Chloride 106 mmol/L (98-107); Creatinine Clr Calc Pharmacy 48.0828; Globulin 3.3 g/dL (1.3-4.6); Glucose 97 mg/dL (65-115); Osmolality Calculated 292 mOsm/kg (285-295); Potassium 3.8 mmol/L (3.5-5.1); Sodium 140 mmol/L (136-145); Total Bilirubin 0.2 mg/dL (0.15-1.2); Total Protein 7.4 g/dL (6.6-8.7)
[2024-04-20 13:29] LABS: Add Urine Culture? Yes; Add Urine Microscopic? YES; Bacteria Urine TRACE /hpf; Bilirubin Urine Neg (Negative); Blood Urine 2+ (Negative); Glucose Urine UA Norm (Normal); Ketones Urine Negative (Negative); Leukocyte Esterase Urine 2+ (Negative); Nitrate Urine Negative (Negative); Protein Urine Neg (Negative); RBC Urine 0-4 /hpf (0-2); Specific Gravity, Urine 1.005 (1.005-1.030); Urine Appearance Clear (CLEAR); Urine Color Yellow (Yellow); Urobilinogen Urine Neg (Negative); WBC Urine 15-25 /hpf (0-5); pH Urine 6 (5-7)
[2024-04-20 13:53] LABS: Slide Review Slide Review Perform
[2024-04-20] MEDS: sodium chloride 0.9% 250 ML 75 ML IV (14:49)
[2024-04-20] MEDS: SODIUM CHLORIDE 0.9% IV (14:50)
[2024-04-20] MEDS: BEVACIZUMAB AWWB IV (14:50)
[2024-04-20 15:35] VITALS: BP 172/82; PULSE 78; RESP 16; TEMP 36.8; O2SAT 95
== END 2024-04-22 23:59 | disposition home or self-care (01) ==
PROVIDERS: Nurse Practitioner Family; PCP Family Medicine; Visit Provider Internal Medicine Medical Oncology
DX: Z53.9 Procedure and treatment not carried out, unspecified reason; D64.9 Anemia, unspecified; N39.0 Urinary tract infection, site not specified; R19.7 Diarrhea, unspecified; Z79.69 Long term (current) use of other immunomodulators and immunosuppressants
CPT/HCPCS: 80053; 81001; 85025; 96367; 96413; 99213; 99214; J1756; J7050; Q5107

== ENCOUNTER 2024-05-08 11:40 | Outpatient (CLI) | payer MEDICARE, SELFPAY | END 2024-05-08 11:41 | disposition home or self-care (01) | PROVIDERS: PCP Family Medicine; Visit Provider Nurse Practitioner Family | DX: D50.0 Iron deficiency anemia secondary to blood loss (chronic) (principal) | CPT/HCPCS: 82274 ==

== ENCOUNTER 2024-05-22 08:01 | Oncology outpatient (recurring) (ONCR) | payer MEDICARE, SELFPAY ==
[2024-05-04 13:07] LABS: Charge for UA Resulting for Rev
[2024-05-04 13:08] LABS: Basophils # 0.1 10^3/uL (0.0-0.1); Basophils % 0.5 %; Eosinophils # 0.3 10^3/uL (0.0-0.8); Eosinophils % 1.9 %; Hematocrit 30.8 % (36-47); Lymphocytes # 6.8 10^3/uL (0.8-4.8); Lymphocytes % 46.4 %; Mean Corpuscular HGB Conc 30.5 g/dL (30-55); Mean Corpuscular Hemoglobin 29.2 pg (27-33); Mean Corpuscular Volume 95.7 fl (85-98); Mean Platelet Volume 10.3 fL (7.4-10.4); Monocytes # 1.4 10^3/uL (0.2-0.9); Monocytes % 9.3 %; Neutrophils # 6.06 10^3/uL (1.8-7.7); Neutrophils % 41.6 %; Nucleated Red Blood Cells % 0.1 %; Platelet Count 431 10^3/cmm (157-399); Red Blood Count 3.22 10^6/uL (3.85-5.65); Red Cell Distribution Width 16.6 % (12.1-15.1); White Blood Count 14.55 10^3/uL (3.29-11.43)
[2024-05-04 13:15] LABS: Bilirubin Urine Negative (Negative); Blood Urine Negative (Negative); Glucose Urine UA Negative (Normal); Ketones Urine Negative (Negative); Leukocyte Esterase Urine 1+ (Negative); Nitrate Urine Negative (Negative); Protein Urine Negative (Negative); Specific Gravity, Urine 1.009 (1.005-1.030); Urine Appearance Clear (CLEAR); Urine Color Dark Yellow (Yellow)
[2024-05-04 13:17] LABS: Bacteria Urine None Seen /hpf; RBC Urine 0-2 /hpf (0-2); Squamous Epithelial Cell Urine 0-5 /hpf (0-5); WBC Urine 0-5 /hpf (0-5)
[2024-05-04 13:22] LABS: Add Urine Culture? No
[2024-05-04 13:29] LABS: Alanine Aminotransferase 22 U/L (0-33); Alkaline Phosphatase 103 U/L (35-105); Anion Gap 18.9 (5-19); Aspartate Amino Transferase 35 U/L (0-32); Blood Urea Nitrogen 20 mg/dL (8-23); Calcium 9.1 mg/dL (8.5-10.5); Carbon Dioxide 22 mmol/L (22-29); Chloride 102 mmol/L (98-107); Globulin 3.2 g/dL (1.3-4.6); Glucose 127 mg/dL (65-115); Osmolality Calculated 292 mOsm/kg (285-295); Potassium 3.9 mmol/L (3.5-5.1); Sodium 139 mmol/L (136-145); Total Bilirubin 0.2 mg/dL (0.15-1.2); Total Protein 7.2 g/dL (6.6-8.7)
[2024-05-04 13:32] LABS: Creatinine Clr Calc Pharmacy 47.9562; Slide Review Slide Review Perform
[2024-05-04] MEDS: sodium chloride 0.9% 250 ML 75 ML IV (14:32)
[2024-05-04] MEDS: BEVACIZUMAB AWWB IV (14:35)
[2024-05-04] MEDS: SODIUM CHLORIDE 0.9% IV (14:35)
[2024-05-04 14:40] LABS: Ferritin 70 ng/mL (15-150); Iron 41 ug/dL (37-145); Percent Saturation 10.6 % (20-50); Total Iron Binding Capacity 385 mcg/dl; Unsaturated Iron Binding 344 ug/dL (112-347)
[2024-05-04 15:35] VITALS: BP 121/77; PULSE 69; RESP 17; TEMP 36.3; O2SAT 94
[2024-05-18 13:12] LABS: Basophils # 0.1 10^3/uL (0.0-0.1); Basophils % 0.6 %; Eosinophils # 0.1 10^3/uL (0.0-0.8); Hematocrit 29.6 % (36-47); Lymphocytes # 3.9 10^3/uL (0.8-4.8); Lymphocytes % 31.9 %; Mean Corpuscular HGB Conc 31.1 g/dL (30-55); Mean Corpuscular Volume 93.4 fl (85-98); Mean Platelet Volume 10.2 fL (7.4-10.4); Monocytes % 8.5 %; Neutrophils # 7.05 10^3/uL (1.8-7.7); Neutrophils % 57.6 %; Nucleated Red Blood Cells % 0 %; Platelet Count 488 10^3/cmm (157-399); Red Blood Count 3.17 10^6/uL (3.85-5.65); Red Cell Distribution Width 17.1 % (12.1-15.1); White Blood Count 12.24 10^3/uL (3.29-11.43)
[2024-05-18 13:30] LABS: Alanine Aminotransferase 25 U/L (0-33); Albumin Level 3.9 g/dL (3.5-5.2); Alkaline Phosphatase 100 U/L (35-105); Anion Gap 16.4 (5-19); Aspartate Amino Transferase 46 U/L (0-32); Blood Urea Nitrogen 25 mg/dL (8-23); Calcium 9.3 mg/dL (8.5-10.5); Carbon Dioxide 23 mmol/L (22-29); Chloride 104 mmol/L (98-107); Creatinine Clr Calc Pharmacy 52.7518; Ferritin 48 ng/mL (15-150); Globulin 3.1 g/dL (1.3-4.6); Glucose 214 mg/dL (65-115); Iron 20 ug/dL (37-145); Osmolality Calculated 299 mOsm/kg (285-295); Percent Saturation 5.5 % (20-50); Potassium 4.4 mmol/L (3.5-5.1); Sodium 139 mmol/L (136-145); Total Bilirubin 0.2 mg/dL (0.15-1.2); Total Iron Binding Capacity 363 mcg/dl; Unsaturated Iron Binding 343 ug/dL (112-347)
[2024-05-18] MEDS: iron sucrose 200 MG in sodium chloride 0.9% (100 ml) 100 ML 220 MG IV (15:30)
[2024-05-18 15:57] VITALS: BP 136/70; PULSE 74; RESP 18; TEMP 36.3; O2SAT 98
[2024-05-20 13:45] VITALS: BP 146/81; PULSE 73; RESP 16; TEMP 36.7; O2SAT 96
[2024-05-20] MEDS: iron sucrose 200 MG in sodium chloride 0.9% (100 ml) 100 ML 220 MG IV (13:57)
[2024-05-20 14:36] VITALS: BP 147/82; PULSE 78; RESP 16; TEMP 36.7; O2SAT 97
[2024-05-22 08:10] VITALS: BP 114/78; PULSE 81; RESP 16; TEMP 36.5; O2SAT 90
[2024-05-22] MEDS: iron sucrose 200 MG in sodium chloride 0.9% (100 ml) 100 ML 220 MG IV (08:25)
[2024-05-22] MEDS: sodium chloride 0.9% 250 ML 75 ML IV (08:26)
[2024-05-22 09:23] VITALS: BP 125/76; PULSE 81; RESP 16; TEMP 36.6; O2SAT 94
== END 2024-05-23 23:59 | disposition home or self-care (01) ==
PROVIDERS: Nurse Practitioner Family; PCP Family Medicine; Visit Provider Internal Medicine Medical Oncology
DX: D50.0 Iron deficiency anemia secondary to blood loss (chronic); Z53.9 Procedure and treatment not carried out, unspecified reason; Z79.899 Other long term (current) drug therapy
CPT/HCPCS: 36591; 80053; 81003; 81015; 82728; 83540; 83550; 85025; 87086; 96365; 96413; 99214; J1756; J7050; Q5107

== ENCOUNTER 2024-06-16 08:15 | Oncology outpatient (recurring) (ONCR) | payer MEDICARE, SELFPAY ==
[2024-05-27 13:05] VITALS: BP 158/83; PULSE 84; RESP 16; TEMP 36.6; O2SAT 95
[2024-05-27] MEDS: iron sucrose 200 MG in sodium chloride 0.9% (100 ml) 100 ML 220 MG IV (13:12)
[2024-05-27 14:04] VITALS: BP 130/66; PULSE 82; RESP 16; TEMP 36.6; O2SAT 96
[2024-05-29 07:52] VITALS: BP 128/70; PULSE 82; RESP 17; TEMP 36.2; O2SAT 95
[2024-05-29] MEDS: iron sucrose 200 MG in sodium chloride 0.9% (100 ml) 100 ML 220 MG IV (08:20)
[2024-05-29 08:56] VITALS: BP 150/76; PULSE 73; RESP 16; TEMP 36.6
[2024-06-16 08:24] LABS: Basophils # 0.1 10^3/uL (0.0-0.1); Eosinophils # 0.2 10^3/uL (0.0-0.8); Eosinophils % 2.1 %; Hematocrit 38.6 % (36-47); Lymphocytes % 46.9 %; Mean Corpuscular HGB Conc 31.3 g/dL (30-55); Mean Platelet Volume 10.7 fL (7.4-10.4); Monocytes # 1.1 10^3/uL (0.2-0.9); Monocytes % 10.6 %; Neutrophils # 4.17 10^3/uL (1.8-7.7); Neutrophils % 39.1 %; Nucleated Red Blood Cells % 0 %; Platelet Count 378 10^3/cmm (157-399); Red Cell Distribution Width 21.9 % (12.1-15.1); White Blood Count 10.66 10^3/uL (3.29-11.43)
[2024-06-16 08:40] LABS: Alanine Aminotransferase 37 U/L (0-33); Alkaline Phosphatase 106 U/L (35-105); Anion Gap 16.7 (5-19); Aspartate Amino Transferase 55 U/L (0-32); Blood Urea Nitrogen 20 mg/dL (8-23); Calcium 9.5 mg/dL (8.5-10.5); Carbon Dioxide 23 mmol/L (22-29); Chloride 106 mmol/L (98-107); Ferritin 529 ng/mL (15-150); Globulin 3.2 g/dL (1.3-4.6); Glucose 108 mg/dL (65-115); Iron 76 ug/dL (37-145); Osmolality Calculated 297 mOsm/kg (285-295); Potassium 3.7 mmol/L (3.5-5.1); Sodium 142 mmol/L (136-145); Total Bilirubin 0.3 mg/dL (0.15-1.2); Total Iron Binding Capacity 330 mcg/dl; Total Protein 7.2 g/dL (6.6-8.7); Unsaturated Iron Binding 254 ug/dL (112-347)
[2024-06-16] MEDS: octreotide LAR depot 20 mg Kit 40 MG IM (11:20)
[2024-06-16 11:27] VITALS: BP 154/85; PULSE 82; RESP 18; TEMP 36.4; O2SAT 95
== END 2024-06-16 23:59 | disposition home or self-care (01) ==
PROVIDERS: PCP Family Medicine; Visit Provider Internal Medicine Medical Oncology
DX: Z53.9 Procedure and treatment not carried out, unspecified reason (principal); D50.0 Iron deficiency anemia secondary to blood loss (chronic); Z79.899 Other long term (current) drug therapy; D47.9 Neoplasm of uncertain behavior of lymphoid, hematopoietic and related tissue, unspecified
CPT/HCPCS: 36591; 80053; 82728; 83540; 83550; 85025; 96365; 96402; 99215; J1756; J2353

== ENCOUNTER 2024-07-14 11:30 | Oncology outpatient (recurring) (ONCR) | payer MEDICARE, SELFPAY ==
[2024-06-30 14:18] LABS: Hematocrit 40.4 % (36-47); Mean Corpuscular HGB Conc 31.7 g/dL (30-55); Mean Corpuscular Volume 97.8 fl (85-98); Mean Platelet Volume 10.7 fL (7.4-10.4); Platelet Count 335 10^3/cmm (157-399); Red Blood Count 4.13 10^6/uL (3.85-5.65); Red Cell Distribution Width 19.6 % (12.1-15.1); White Blood Count 14.42 10^3/uL (3.29-11.43)
[2024-06-30 14:44] LABS: Alanine Aminotransferase 24 U/L (0-33); Albumin Level 3.8 g/dL (3.5-5.2); Alkaline Phosphatase 99 U/L (35-105); Anion Gap 13.6 (5-19); Aspartate Amino Transferase 34 U/L (0-32); Blood Urea Nitrogen 20 mg/dL (8-23); Carbon Dioxide 24 mmol/L (22-29); Chloride 105 mmol/L (98-107); Globulin 3.3 g/dL (1.3-4.6); Glucose 127 mg/dL (65-115); Osmolality Calculated 290 mOsm/kg (285-295); Potassium 4.6 mmol/L (3.5-5.1); Sodium 138 mmol/L (136-145); Total Bilirubin 0.2 mg/dL (0.15-1.2); Total Protein 7.1 g/dL (6.6-8.7)
[2024-06-30 15:03] LABS: Absolute Neutrophil 7.1 10^3/cmm (1.4-6.5); Absolute Segmented Neutrophil 7.1 10/cmm (1.6-7.1); Eosinophils 0 %; Lymphocytes 42 %; Lymphocytes Absolute 6.1 10^3/cmm (1.2-3.4); Monocytes Absolute 0.9 10^3/cmm (0.1-0.6); Platelet Estimate Normal (Normal); Segmented Neutrophils 49 %; Slide Review Slide Review Perform; Total Cells Counted 100 (0-100)
[2024-06-30 15:04] LABS: Anisocytosis 1+; Macrocytosis Trace
[2024-07-14 11:52] LABS: Basophils # 0.1 10^3/uL (0.0-0.1); Basophils % 0.5 %; Eosinophils # 0.1 10^3/uL (0.0-0.8); Eosinophils % 0.8 %; Lymphocytes % 40.5 %; Mean Corpuscular HGB Conc 32.1 g/dL (30-55); Mean Corpuscular Hemoglobin 30.1 pg (27-33); Mean Corpuscular Volume 93.7 fl (85-98); Mean Platelet Volume 10.7 fL (7.4-10.4); Monocytes % 8.4 %; Neutrophils # 6.16 10^3/uL (1.8-7.7); Neutrophils % 49.4 %; Nucleated Red Blood Cells % 0 %; Platelet Count 333 10^3/cmm (157-399); Red Blood Count 4.59 10^6/uL (3.85-5.65); Red Cell Distribution Width 19.9 % (12.1-15.1); White Blood Count 12.45 10^3/uL (3.29-11.43)
[2024-07-14 12:11] LABS: Alanine Aminotransferase 30 U/L (0-33); Albumin Level 4.2 g/dL (3.5-5.2); Alkaline Phosphatase 105 U/L (35-105); Anion Gap 15.2 (5-19); Aspartate Amino Transferase 39 U/L (0-32); Blood Urea Nitrogen 29 mg/dL (8-23); Calcium 9.1 mg/dL (8.5-10.5); Carbon Dioxide 28 mmol/L (22-29); Chloride 103 mmol/L (98-107); Creatinine Clr Calc Pharmacy 46.9438; Ferritin 271 ng/mL (15-150); Globulin 3.4 g/dL (1.3-4.6); Glucose 102 mg/dL (65-115); Iron 67 ug/dL (37-145); Osmolality Calculated 300 mOsm/kg (285-295); Percent Saturation 21.2 % (20-50); Potassium 4.2 mmol/L (3.5-5.1); Sodium 142 mmol/L (136-145); Total Bilirubin 0.4 mg/dL (0.15-1.2); Total Iron Binding Capacity 316 mcg/dl; Total Protein 7.6 g/dL (6.6-8.7); Unsaturated Iron Binding 249 ug/dL (112-347)
[2024-07-14 12:45] LABS: Folate Level > 20.0 ng/mL (4.8-37.3)
[2024-07-14] MEDS: octreotide LAR depot 20 mg Kit 40 MG IM (13:41)
== END 2024-07-14 23:59 | disposition home or self-care (01) ==
PROVIDERS: Nurse Practitioner Family; PCP Family Medicine; Visit Provider Internal Medicine Hematology & Oncology
DX: D50.0 Iron deficiency anemia secondary to blood loss (chronic) (principal); K31.819 Angiodysplasia of stomach and duodenum without bleeding; Z53.9 Procedure and treatment not carried out, unspecified reason
CPT/HCPCS: 36591; 80053; 82728; 82746; 83540; 83550; 85007; 85025; 99214; J2353

== ENCOUNTER 2024-08-11 10:45 | Oncology outpatient (recurring) (ONCR) | payer MEDICARE, SELFPAY ==
[2024-08-11 12:02] LABS: Basophils # 0.1 10^3/uL (0.0-0.1); Basophils % 0.7 %; Eosinophils # 0.2 10^3/uL (0.0-0.8); Eosinophils % 1.2 %; Hematocrit 36.9 % (36-47); Lymphocytes # 4.9 10^3/uL (0.8-4.8); Lymphocytes % 36.6 %; Mean Corpuscular HGB Conc 32.2 g/dL (30-55); Mean Corpuscular Hemoglobin 31.2 pg (27-33); Mean Corpuscular Volume 96.9 fl (85-98); Mean Platelet Volume 10.3 fL (7.4-10.4); Monocytes # 1.3 10^3/uL (0.2-0.9); Monocytes % 9.5 %; Neutrophils # 6.83 10^3/uL (1.8-7.7); Neutrophils % 51.3 %; Nucleated Red Blood Cells % 0 %; Platelet Count 364 10^3/cmm (157-399); Red Blood Count 3.81 10^6/uL (3.85-5.65); Red Cell Distribution Width 19.8 % (12.1-15.1); White Blood Count 13.29 10^3/uL (3.29-11.43)
[2024-08-11 12:21] LABS: Alanine Aminotransferase 38 U/L (0-33); Alkaline Phosphatase 133 U/L (35-105); Anion Gap 13.5 (5-19); Aspartate Amino Transferase 63 U/L (0-32); Blood Urea Nitrogen 21 mg/dL (8-23); Calcium 9.5 mg/dL (8.5-10.5); Carbon Dioxide 26 mmol/L (22-29); Chloride 106 mmol/L (98-107); Creatinine Clr Calc Pharmacy 40.3911; Ferritin 167 ng/mL (15-150); Globulin 3.3 g/dL (1.3-4.6); Glucose 83 mg/dL (65-115); Lactate Dehydrogenase 234 U/L (135-214); Osmolality Calculated 294 mOsm/kg (285-295); Potassium 4.5 mmol/L (3.5-5.1); Sodium 141 mmol/L (136-145); Total Bilirubin 0.3 mg/dL (0.15-1.2); Total Protein 7.3 g/dL (6.6-8.7)
[2024-08-11 12:37] LABS: Vitamin B12 1216 pg/mL (232-1245)
[2024-08-11] MEDS: octreotide LAR depot 20 mg Kit 40 MG IM (14:28)
[2024-08-11 14:40] VITALS: BP 148/78; PULSE 78; RESP 18; TEMP 36.4; O2SAT 98
== END 2024-08-22 23:59 | disposition home or self-care (01) ==
PROVIDERS: PCP Family Medicine; Visit Provider Internal Medicine Hematology & Oncology
DX: D50.0 Iron deficiency anemia secondary to blood loss (chronic) (principal); Z79.818 Long term (current) use of other agents affecting estrogen receptors and estrogen levels; E11.65 Type 2 diabetes mellitus with hyperglycemia; D47.9 Neoplasm of uncertain behavior of lymphoid, hematopoietic and related tissue, unspecified
CPT/HCPCS: 36591; 80053; 82607; 82728; 83615; 85025; 99214; J2353

== ENCOUNTER 2024-09-08 10:04 | Oncology outpatient (recurring) (ONCR) | payer MEDICARE, SELFPAY ==
[2024-09-08 10:37] LABS: Basophils # 0.1 10^3/uL (0.0-0.1); Basophils % 0.7 %; Eosinophils # 0.2 10^3/uL (0.0-0.8); Eosinophils % 1.6 %; Hematocrit 31.4 % (36-47); Lymphocytes # 4.2 10^3/uL (0.8-4.8); Lymphocytes % 31.5 %; Mean Corpuscular HGB Conc 31.2 g/dL (30-55); Mean Corpuscular Hemoglobin 31.6 pg (27-33); Mean Corpuscular Volume 101.3 fl (85-98); Monocytes # 1.2 10^3/uL (0.2-0.9); Monocytes % 8.7 %; Neutrophils # 7.59 10^3/uL (1.8-7.7); Neutrophils % 56.7 %; Nucleated Red Blood Cells % 0 %; Platelet Count 414 10^3/cmm (157-399); Red Cell Distribution Width 17.2 % (12.1-15.1); White Blood Count 13.41 10^3/uL (3.29-11.43)
[2024-09-08 10:52] LABS: Alanine Aminotransferase 27 U/L (0-33); Albumin Level 3.8 g/dL (3.5-5.2); Alkaline Phosphatase 118 U/L (35-105); Anion Gap 15.6 (5-19); Aspartate Amino Transferase 47 U/L (0-32); Blood Urea Nitrogen 26 mg/dL (8-23); Calcium 8.2 mg/dL (8.5-10.5); Carbon Dioxide 22 mmol/L (22-29); Chloride 107 mmol/L (98-107); Creatinine Clr Calc Pharmacy 43.8439; Glucose 228 mg/dL (65-115); Lactate Dehydrogenase 236 U/L (135-214); Osmolality Calculated 302 mOsm/kg (285-295); Potassium 4.6 mmol/L (3.5-5.1); Sodium 140 mmol/L (136-145); Total Bilirubin 0.3 mg/dL (0.15-1.2); Total Protein 6.8 g/dL (6.6-8.7)
[2024-09-08] MEDS: octreotide LAR depot 20 mg Kit 40 MG IM (11:57)
[2024-09-08 11:59] VITALS: BP 124/78; PULSE 78; RESP 17; TEMP 36.4; O2SAT 98
[2024-09-11 11:25] LABS: Ferritin 64 ng/mL (15-150); Iron 50 ug/dL (37-145); Percent Saturation 15.3 % (20-50); Total Iron Binding Capacity 325 mcg/dl; Unsaturated Iron Binding 275 ug/dL (112-347)
== END 2024-09-22 23:59 | disposition home or self-care (01) ==
PROVIDERS: Nurse Practitioner Family; PCP Family Medicine; Visit Provider Internal Medicine Medical Oncology
DX: D50.0 Iron deficiency anemia secondary to blood loss (chronic) (principal); K31.819 Angiodysplasia of stomach and duodenum without bleeding; Z79.899 Other long term (current) drug therapy; Z95.828 Presence of other vascular implants and grafts; Z95.2 Presence of prosthetic heart valve; E11.65 Type 2 diabetes mellitus with hyperglycemia; Z79.4 Long term (current) use of insulin; Z79.02 Long term (current) use of antithrombotics/antiplatelets; Z79.82 Long term (current) use of aspirin
CPT/HCPCS: 36591; 80053; 82728; 83540; 83550; 83615; 85025; 96402; 99214; J2353

== ENCOUNTER 2024-10-06 12:45 | Oncology outpatient (recurring) (ONCR) | payer MEDICARE, SELFPAY ==
[2024-09-29 13:29] VITALS: BP 133/77; PULSE 90; RESP 17; TEMP 36.6; O2SAT 99
[2024-09-29] MEDS: iron sucrose 200 MG in sodium chloride 0.9% 50 ML 240 MG IV (13:38)
[2024-09-29 14:00] VITALS: BP 124/78; PULSE 68; RESP 18; TEMP 36.4; O2SAT 97
[2024-10-06 12:27] LABS: Basophils # 0.1 10^3/uL (0.0-0.1); Basophils % 0.6 %; Eosinophils # 0.2 10^3/uL (0.0-0.8); Eosinophils % 1.4 %; Hematocrit 25.4 % (36-47); Lymphocytes # 4.6 10^3/uL (0.8-4.8); Lymphocytes % 33.3 %; Mean Corpuscular HGB Conc 29.9 g/dL (30-55); Mean Corpuscular Hemoglobin 31.7 pg (27-33); Mean Corpuscular Volume 105.8 fl (85-98); Mean Platelet Volume 9.9 fL (7.4-10.4); Monocytes # 1.7 10^3/uL (0.2-0.9); Monocytes % 11.9 %; Neutrophils # 7.18 10^3/uL (1.8-7.7); Neutrophils % 51.7 %; Nucleated Red Blood Cells # 0.1 /100WBC; Nucleated Red Blood Cells % 0.6 %; Platelet Count 456 10^3/cmm (157-399); Red Cell Distribution Width 19.9 % (12.1-15.1); White Blood Count 13.89 10^3/uL (3.29-11.43)
[2024-10-06 12:48] LABS: Alanine Aminotransferase 27 U/L (0-33); Alkaline Phosphatase 117 U/L (35-105); Anion Gap 14.2 (5-19); Aspartate Amino Transferase 48 U/L (0-32); Blood Urea Nitrogen 21 mg/dL (8-23); Calcium 9.3 mg/dL (8.5-10.5); Carbon Dioxide 23 mmol/L (22-29); Chloride 107 mmol/L (98-107); Creatinine Clr Calc Pharmacy 43.8439; Ferritin 206 ng/mL (15-150); Glucose 75 mg/dL (65-115); Iron 22 ug/dL (37-145); Osmolality Calculated 292 mOsm/kg (285-295); Percent Saturation 5.8 % (20-50); Potassium 4.2 mmol/L (3.5-5.1); Sodium 140 mmol/L (136-145); Total Bilirubin 0.3 mg/dL (0.15-1.2); Total Iron Binding Capacity 373 mcg/dl; Unsaturated Iron Binding 351 ug/dL (112-347)
[2024-10-06 13:04] LABS: Vitamin B12 1243 pg/mL (232-1245)
[2024-10-06 13:36] LABS: Folate Level > 20.0 ng/mL (4.8-37.3)
[2024-10-06] MEDS: iron sucrose 200 MG in sodium chloride 0.9% (100 ml) 100 ML 240 MG IV (14:48)
[2024-10-06] MEDS: octreotide LAR depot 20 mg Kit 40 MG IM (15:30)
[2024-10-10 12:55] LABS: Soluble Transferrin Receptor 2.69 mg/L (0.76-1.76)
== END 2024-10-06 23:59 | disposition home or self-care (01) ==
PROVIDERS: PCP Family Medicine; Visit Provider Internal Medicine Medical Oncology
DX: K31.819 Angiodysplasia of stomach and duodenum without bleeding; Z79.899 Other long term (current) drug therapy; Z95.828 Presence of other vascular implants and grafts; Z95.2 Presence of prosthetic heart valve; E11.65 Type 2 diabetes mellitus with hyperglycemia; Z79.4 Long term (current) use of insulin; Z79.02 Long term (current) use of antithrombotics/antiplatelets; Z79.82 Long term (current) use of aspirin; Z53.9 Procedure and treatment not carried out, unspecified reason; D47.9 Neoplasm of uncertain behavior of lymphoid, hematopoietic and related tissue, unspecified; Z79.818 Long term (current) use of other agents affecting estrogen receptors and estrogen levels; D50.9 Iron deficiency anemia, unspecified
CPT/HCPCS: 80053; 82607; 82728; 82746; 83540; 83550; 84238; 85025; 86850; 86900; 86920; 96365; 96402; 99214; J1756; J2353

== ENCOUNTER 2024-10-20 13:30 | Oncology outpatient (recurring) (ONCR) | payer MEDICARE, SELFPAY ==
[2024-10-07] VITALS (9 sets, daily range): BP systolic 88–134; BP diastolic 46–94; PULSE 64–97; RESP 17–18; TEMP 36.3–36.6; O2SAT 94–96
[2024-10-07] MEDS: diphenhydrAMINE 25 mg Capsule PO (09:37)
[2024-10-07] MEDS: acetaminophen 325 mg Tablet 650 MG PO (09:37)
[2024-10-07] MEDS: sodium chloride 0.9% 250 mL Bag IV (09:51)
[2024-10-07] MEDS: FUROsemide 10 mg/mL SDV 2mL 20 MG IVP (11:54)
[2024-10-13 13:23] LABS: Basophils # 0.1 10^3/uL (0.0-0.1); Basophils % 0.9 %; Eosinophils # 0.3 10^3/uL (0.0-0.8); Eosinophils % 2.3 %; Hematocrit 38.4 % (36-47); Lymphocytes % 35.7 %; Mean Corpuscular HGB Conc 29.7 g/dL (30-55); Mean Corpuscular Hemoglobin 28.9 pg (27-33); Mean Corpuscular Volume 97.2 fl (85-98); Mean Platelet Volume 10.3 fL (7.4-10.4); Monocytes # 1.5 10^3/uL (0.2-0.9); Monocytes % 13.1 %; Neutrophils # 5.29 10^3/uL (1.8-7.7); Neutrophils % 47.4 %; Nucleated Red Blood Cells % 0 %; Platelet Count 421 10^3/cmm (157-399); Red Blood Count 3.95 10^6/uL (3.85-5.65); Red Cell Distribution Width 21.4 % (12.1-15.1); White Blood Count 11.16 10^3/uL (3.29-11.43)
[2024-10-13 13:34] LABS: Alanine Aminotransferase 35 U/L (0-33); Alkaline Phosphatase 122 U/L (35-105); Aspartate Amino Transferase 68 U/L (0-32); Blood Urea Nitrogen 21 mg/dL (8-23); Calcium 9.4 mg/dL (8.5-10.5); Carbon Dioxide 23 mmol/L (22-29); Chloride 107 mmol/L (98-107); Globulin 3.1 g/dL (1.3-4.6); Glucose 76 mg/dL (65-115); Osmolality Calculated 294 mOsm/kg (285-295); Sodium 141 mmol/L (136-145); Total Bilirubin 0.3 mg/dL (0.15-1.2); Total Protein 7.1 g/dL (6.6-8.7)
[2024-10-13] MEDS: iron sucrose 200 MG in sodium chloride 0.9% 50 ML 240 MG IV (13:45)
[2024-10-13] MEDS: sodium chloride 0.9% 250 ML 150 ML IV (13:45)
[2024-10-13 13:49] VITALS: BP 152/71; PULSE 61; RESP 17; TEMP 36.7; O2SAT 98
[2024-10-13 14:07] LABS: Ferritin 278 ng/mL (15-150); Iron 69 ug/dL (37-145); Percent Saturation 19.4 % (20-50); Total Iron Binding Capacity 355 mcg/dl; Unsaturated Iron Binding 286 ug/dL (112-347)
[2024-10-13 14:32] VITALS: BP 146/72; PULSE 68; RESP 17; TEMP 36.8; O2SAT 94
[2024-10-20] MEDS: iron sucrose 200 MG in sodium chloride 0.9% 50 ML 240 MG IV (13:20)
[2024-10-20] MEDS: sodium chloride 0.9% 250 ML 75 ML IV (13:20)
[2024-10-20 14:39] VITALS: BP 110/55; PULSE 70; RESP 16; TEMP 37.1; O2SAT 93
== END 2024-10-23 23:59 | disposition home or self-care (01) ==
PROVIDERS: Nurse Practitioner Family; PCP Family Medicine; Visit Provider Internal Medicine Medical Oncology
DX: D50.0 Iron deficiency anemia secondary to blood loss (chronic) (principal); Z79.899 Other long term (current) drug therapy; Z53.9 Procedure and treatment not carried out, unspecified reason
CPT/HCPCS: 36430; 80053; 82728; 83540; 83550; 85025; 86850; 86900; 86920; 96365; J1756; J1940; J7050; P9016

== ENCOUNTER 2024-11-03 14:00 | Oncology outpatient (recurring) (ONCR) | payer MEDICARE, SELFPAY ==
[2024-10-28] MEDS: iron sucrose 200 MG in sodium chloride 0.9% 50 ML 240 MG IV (15:46)
[2024-10-28 16:13] VITALS: BP 139/83; PULSE 72; RESP 16; TEMP 36.3; O2SAT 94
[2024-11-03 14:15] LABS: Basophils # 0.1 10^3/uL (0.0-0.1); Basophils % 0.7 %; Eosinophils # 0.3 10^3/uL (0.0-0.8); Hematocrit 36.8 % (36-47); Lymphocytes # 4.9 10^3/uL (0.8-4.8); Lymphocytes % 39.5 %; Mean Corpuscular HGB Conc 30.7 g/dL (30-55); Mean Corpuscular Hemoglobin 29.9 pg (27-33); Mean Corpuscular Volume 97.4 fl (85-98); Mean Platelet Volume 10.3 fL (7.4-10.4); Monocytes # 1.5 10^3/uL (0.2-0.9); Monocytes % 12.2 %; Neutrophils # 5.49 10^3/uL (1.8-7.7); Neutrophils % 44.5 %; Nucleated Red Blood Cells % 0 %; Platelet Count 388 10^3/cmm (157-399); Red Blood Count 3.78 10^6/uL (3.85-5.65); Red Cell Distribution Width 21.2 % (12.1-15.1); White Blood Count 12.34 10^3/uL (3.29-11.43)
[2024-11-03 14:32] LABS: Alanine Aminotransferase 36 U/L (0-33); Albumin Level 3.9 g/dL (3.5-5.2); Alkaline Phosphatase 114 U/L (35-105); Anion Gap 14.3 (5-19); Aspartate Amino Transferase 40 U/L (0-32); Blood Urea Nitrogen 24 mg/dL (8-23); Calcium 9.2 mg/dL (8.5-10.5); Carbon Dioxide 24 mmol/L (22-29); Chloride 105 mmol/L (98-107); Globulin 3.1 g/dL (1.3-4.6); Glucose 88 mg/dL (65-115); Osmolality Calculated 291 mOsm/kg (285-295); Potassium 4.3 mmol/L (3.5-5.1); Sodium 139 mmol/L (136-145); Total Bilirubin 0.2 mg/dL (0.15-1.2)
[2024-11-03 14:50] VITALS: BP 120/78; PULSE 72; RESP 18; TEMP 36.4; O2SAT 98
[2024-11-03] MEDS: octreotide LAR depot 20 mg Kit 40 MG IM (14:50)
== END 2024-11-20 23:59 | disposition home or self-care (01) ==
PROVIDERS: PCP Family Medicine; Visit Provider Internal Medicine Medical Oncology
DX: K31.819 Angiodysplasia of stomach and duodenum without bleeding; Z79.899 Other long term (current) drug therapy; Z53.9 Procedure and treatment not carried out, unspecified reason
CPT/HCPCS: 36591; 80053; 85025; 96365; 96402; J1756; J2353

== ENCOUNTER 2024-12-01 08:08 | Oncology outpatient (recurring) (ONCR) | payer MEDICARE, SELFPAY ==
[2024-12-01 08:55] LABS: Basophils # 0.1 10^3/uL (0.0-0.1); Eosinophils # 0.3 10^3/uL (0.0-0.8); Eosinophils % 3.4 %; Hematocrit 37.7 % (36-47); Lymphocytes # 3.1 10^3/uL (0.8-4.8); Lymphocytes % 32.5 %; Mean Corpuscular HGB Conc 31.3 g/dL (30-55); Mean Corpuscular Hemoglobin 30.9 pg (27-33); Mean Corpuscular Volume 98.7 fl (85-98); Mean Platelet Volume 10.6 fL (7.4-10.4); Monocytes # 1.2 10^3/uL (0.2-0.9); Monocytes % 12.9 %; Neutrophils # 4.67 10^3/uL (1.8-7.7); Neutrophils % 49.5 %; Nucleated Red Blood Cells % 0 %; Platelet Count 325 10^3/cmm (157-399); Red Blood Count 3.82 10^6/uL (3.85-5.65); Red Cell Distribution Width 19.2 % (12.1-15.1); White Blood Count 9.44 10^3/uL (3.29-11.43)
[2024-12-01 09:07] LABS: Alanine Aminotransferase 33 U/L (0-33); Albumin Level 3.7 g/dL (3.5-5.2); Alkaline Phosphatase 151 U/L (35-105); Anion Gap 15.3 (5-19); Aspartate Amino Transferase 46 U/L (0-32); Blood Urea Nitrogen 14 mg/dL (8-23); Calcium 8.8 mg/dL (8.5-10.5); Carbon Dioxide 24 mmol/L (22-29); Chloride 104 mmol/L (98-107); Globulin 3.3 g/dL (1.3-4.6); Glucose 254 mg/dL (65-115); Osmolality Calculated 297 mOsm/kg (285-295); Potassium 4.3 mmol/L (3.5-5.1); Sodium 139 mmol/L (136-145); Total Bilirubin 0.3 mg/dL (0.15-1.2)
[2024-12-01] MEDS: octreotide LAR depot 20 mg Kit 40 MG IM (10:07)
== END 2024-12-21 23:59 | disposition home or self-care (01) ==
PROVIDERS: PCP Family Medicine; Visit Provider Internal Medicine Medical Oncology
DX: K31.819 Angiodysplasia of stomach and duodenum without bleeding (principal); Z79.899 Other long term (current) drug therapy
CPT/HCPCS: 80053; 85025; 96402; J2353

== ENCOUNTER 2025-01-12 09:01 | Oncology outpatient (recurring) (ONCR) | payer MEDICARE, SELFPAY ==
[2024-12-29 08:59] LABS: Basophils # 0.1 10^3/uL (0.0-0.1); Basophils % 0.7 %; Eosinophils # 0.3 10^3/uL (0.0-0.8); Eosinophils % 2.8 %; Hematocrit 27.1 % (36-47); Lymphocytes # 3.6 10^3/uL (0.8-4.8); Lymphocytes % 33.2 %; Mean Corpuscular Hemoglobin 31.6 pg (27-33); Mean Corpuscular Volume 101.9 fl (85-98); Mean Platelet Volume 10.5 fL (7.4-10.4); Monocytes % 9.2 %; Neutrophils # 5.78 10^3/uL (1.8-7.7); Neutrophils % 53.5 %; Nucleated Red Blood Cells % 0.2 %; Platelet Count 415 10^3/cmm (157-399); Red Blood Count 2.66 10^6/uL (3.85-5.65); Red Cell Distribution Width 17.6 % (12.1-15.1); White Blood Count 10.81 10^3/uL (3.29-11.43)
[2024-12-29 09:05] LABS: Alanine Aminotransferase 28 U/L (0-33); Albumin Level 3.6 g/dL (3.5-5.2); Alkaline Phosphatase 132 U/L (35-105); Anion Gap 14.8 (5-19); Aspartate Amino Transferase 61 U/L (0-32); Blood Urea Nitrogen 22 mg/dL (8-23); Calcium 8.8 mg/dL (8.5-10.5); Carbon Dioxide 22 mmol/L (22-29); Chloride 108 mmol/L (98-107); Creatinine Clr Calc Pharmacy 52.4734; Ferritin 76 ng/mL (15-150); Glucose 184 mg/dL (65-115); Iron 40 ug/dL (37-145); Osmolality Calculated 300 mOsm/kg (285-295); Percent Saturation 11.7 % (20-50); Potassium 3.8 mmol/L (3.5-5.1); Sodium 141 mmol/L (136-145); Total Bilirubin 0.3 mg/dL (0.15-1.2); Total Iron Binding Capacity 341 mcg/dl; Total Protein 6.6 g/dL (6.6-8.7); Unsaturated Iron Binding 301 ug/dL (112-347)
[2024-12-29 09:21] LABS: Vitamin B12 1081 pg/mL (232-1245)
[2024-12-29 09:56] LABS: Folate Level > 20.0 ng/mL (4.8-37.3)
[2024-12-29] MEDS: octreotide LAR depot 20 mg Kit 40 MG IM (10:44)
[2025-01-12 10:03] LABS: Alanine Aminotransferase 30 U/L (0-33); Albumin Level 3.7 g/dL (3.5-5.2); Alkaline Phosphatase 137 U/L (35-105); Anion Gap 14.1 (5-19); Aspartate Amino Transferase 54 U/L (0-32); Blood Urea Nitrogen 25 mg/dL (8-23); Calcium 8.9 mg/dL (8.5-10.5); Carbon Dioxide 22 mmol/L (22-29); Chloride 106 mmol/L (98-107); Creatinine Clr Calc Pharmacy 47.7031; Ferritin 84 ng/mL (15-150); Globulin 3.1 g/dL (1.3-4.6); Glucose 111 mg/dL (65-115); Iron 99 ug/dL (37-145); Osmolality Calculated 291 mOsm/kg (285-295); Percent Saturation 28.5 % (20-50); Potassium 4.1 mmol/L (3.5-5.1); Sodium 138 mmol/L (136-145); Total Bilirubin 0.3 mg/dL (0.15-1.2); Total Iron Binding Capacity 347 mcg/dl; Total Protein 6.8 g/dL (6.6-8.7); Unsaturated Iron Binding 248 ug/dL (112-347)
[2025-01-12 10:08] LABS: Basophils # 0.1 10^3/uL (0.0-0.1); Basophils % 0.5 %; Eosinophils # 0.2 10^3/uL (0.0-0.8); Eosinophils % 1.5 %; Hematocrit 28.4 % (36-47); Lymphocytes # 5.8 10^3/uL (0.8-4.8); Lymphocytes % 38.5 %; Mean Corpuscular HGB Conc 29.9 g/dL (30-55); Mean Corpuscular Hemoglobin 31.7 pg (27-33); Mean Platelet Volume 10.6 fL (7.4-10.4); Monocytes # 1.5 10^3/uL (0.2-0.9); Monocytes % 9.6 %; Neutrophils # 7.31 10^3/uL (1.8-7.7); Neutrophils % 48.4 %; Nucleated Red Blood Cells # 0.1 /100WBC; Nucleated Red Blood Cells % 0.5 %; Platelet Count 470 10^3/cmm (157-399); Red Blood Count 2.68 10^6/uL (3.85-5.65); White Blood Count 15.08 10^3/uL (3.29-11.43)
[2025-01-12 10:19] LABS: Vitamin B12 1440 pg/mL (232-1245)
[2025-01-12 11:00] LABS: Folate Level > 20.0 ng/mL (4.8-37.3)
== END 2025-01-20 23:59 | disposition home or self-care (01) ==
PROVIDERS: PCP Family Medicine; Visit Provider Internal Medicine Medical Oncology
DX: Z53.9 Procedure and treatment not carried out, unspecified reason; D47.9 Neoplasm of uncertain behavior of lymphoid, hematopoietic and related tissue, unspecified; K31.819 Angiodysplasia of stomach and duodenum without bleeding; E11.65 Type 2 diabetes mellitus with hyperglycemia
CPT/HCPCS: 36591; 80053; 82607; 82728; 82746; 83540; 83550; 85025; 96402; 99214; J2353

== ENCOUNTER 2025-01-26 09:16 | Oncology outpatient (recurring) (ONCR) | payer MEDICARE, SELFPAY ==
[2025-01-26] VITALS (10 sets, daily range): BP systolic 117–158; BP diastolic 56–89; PULSE 70–89; RESP 16–18; TEMP 36.3–36.6; O2SAT 96–99
[2025-01-26 09:49] LABS: Basophils # 0.1 10^3/uL (0.0-0.1); Basophils % 0.7 %; Eosinophils # 0.2 10^3/uL (0.0-0.8); Eosinophils % 1.9 %; Hematocrit 26.9 % (36-47); Lymphocytes # 3.1 10^3/uL (0.8-4.8); Lymphocytes % 25.1 %; Mean Corpuscular Hemoglobin 34.1 pg (27-33); Mean Corpuscular Volume 117.5 fl (85-98); Mean Platelet Volume 10.5 fL (7.4-10.4); Monocytes % 8.2 %; Neutrophils # 7.82 10^3/uL (1.8-7.7); Neutrophils % 62.7 %; Nucleated Red Blood Cells # 0.1 /100WBC; Nucleated Red Blood Cells % 0.9 %; Platelet Count 437 10^3/cmm (157-399); Red Blood Count 2.29 10^6/uL (3.85-5.65); Red Cell Distribution Width 20.7 % (12.1-15.1)
[2025-01-26 10:29] LABS: Alanine Aminotransferase 31 U/L (0-33); Albumin Level 3.5 g/dL (3.5-5.2); Alkaline Phosphatase 132 U/L (35-105); Anion Gap 18.4 (5-19); Aspartate Amino Transferase 56 U/L (0-32); Blood Urea Nitrogen 20 mg/dL (8-23); Calcium 8.7 mg/dL (8.5-10.5); Carbon Dioxide 20 mmol/L (22-29); Chloride 108 mmol/L (98-107); Creatinine Clr Calc Pharmacy 43.8439; Ferritin 206 ng/mL (15-150); Globulin 3.1 g/dL (1.3-4.6); Glucose 163 mg/dL (65-115); Iron 285 ug/dL (37-145); Osmolality Calculated 300 mOsm/kg (285-295); Percent Saturation 82.8 % (20-50); Potassium 4.4 mmol/L (3.5-5.1); Sodium 142 mmol/L (136-145); Total Bilirubin 0.2 mg/dL (0.15-1.2); Total Iron Binding Capacity 344 mcg/dl; Total Protein 6.6 g/dL (6.6-8.7); Unsaturated Iron Binding 59 ug/dL (112-347); Vitamin B12 1006 pg/mL (232-1245)
[2025-01-26 10:35] LABS: Folate Level > 20.0 ng/mL (4.8-37.3)
[2025-01-26] MEDS: diphenhydrAMINE 25 mg Capsule PO (11:02)
[2025-01-26] MEDS: acetaminophen 325 mg Tablet 650 MG PO (11:02)
[2025-01-26] MEDS: octreotide LAR depot 20 mg Kit 40 MG IM (16:10)
== END 2025-01-26 23:59 | disposition home or self-care (01) ==
PROVIDERS: PCP Family Medicine; Visit Provider Internal Medicine Medical Oncology
DX: Z53.9 Procedure and treatment not carried out, unspecified reason; D47.9 Neoplasm of uncertain behavior of lymphoid, hematopoietic and related tissue, unspecified; R03.0 Elevated blood-pressure reading, without diagnosis of hypertension; K55.20 Angiodysplasia of colon without hemorrhage; D64.9 Anemia, unspecified; Z79.818 Long term (current) use of other agents affecting estrogen receptors and estrogen levels; Z79.899 Other long term (current) drug therapy
CPT/HCPCS: 36430; 36591; 80053; 82607; 82728; 82746; 83540; 83550; 85025; 86850; 86900; 86920; 96401; 99214; J2353; J9999; P9016

== ENCOUNTER 2025-02-10 12:54 | Oncology outpatient (recurring) (ONCR) | payer MEDICARE, SELFPAY ==
[2025-02-10 13:16] LABS: Basophils # 0.1 10^3/uL (0.0-0.1); Basophils % 0.6 %; Eosinophils # 0.1 10^3/uL (0.0-0.8); Eosinophils % 0.9 %; Hematocrit 32.3 % (36-47); Lymphocytes # 5.6 10^3/uL (0.8-4.8); Mean Corpuscular HGB Conc 30.3 g/dL (30-55); Mean Corpuscular Hemoglobin 32.9 pg (27-33); Mean Corpuscular Volume 108.4 fl (85-98); Mean Platelet Volume 10.5 fL (7.4-10.4); Monocytes # 1.7 10^3/uL (0.2-0.9); Monocytes % 10.5 %; Neutrophils # 8.67 10^3/uL (1.8-7.7); Neutrophils % 52.8 %; Nucleated Red Blood Cells % 0.1 %; Platelet Count 433 10^3/cmm (157-399); Red Blood Count 2.98 10^6/uL (3.85-5.65); Red Cell Distribution Width 19.2 % (12.1-15.1); White Blood Count 16.39 10^3/uL (3.29-11.43)
[2025-02-10 13:33] LABS: Alanine Aminotransferase 38 U/L (0-33); Albumin Level 3.6 g/dL (3.5-5.2); Alkaline Phosphatase 155 U/L (35-105); Anion Gap 17.1 (5-19); Aspartate Amino Transferase 67 U/L (0-32); Blood Urea Nitrogen 26 mg/dL (8-23); Calcium 8.5 mg/dL (8.5-10.5); Carbon Dioxide 20 mmol/L (22-29); Chloride 107 mmol/L (98-107); Globulin 3.3 g/dL (1.3-4.6); Glucose 178 mg/dL (65-115); Osmolality Calculated 299 mOsm/kg (285-295); Potassium 4.1 mmol/L (3.5-5.1); Sodium 140 mmol/L (136-145); Total Bilirubin 0.2 mg/dL (0.15-1.2); Total Protein 6.9 g/dL (6.6-8.7)
== END 2025-02-20 23:59 | disposition home or self-care (01) ==
PROVIDERS: Nurse Practitioner Family; PCP Family Medicine; Visit Provider Internal Medicine Medical Oncology
DX: Z53.9 Procedure and treatment not carried out, unspecified reason (principal); D47.9 Neoplasm of uncertain behavior of lymphoid, hematopoietic and related tissue, unspecified; D50.0 Iron deficiency anemia secondary to blood loss (chronic); Z79.818 Long term (current) use of other agents affecting estrogen receptors and estrogen levels; K31.819 Angiodysplasia of stomach and duodenum without bleeding; E11.65 Type 2 diabetes mellitus with hyperglycemia; Z79.899 Other long term (current) drug therapy
CPT/HCPCS: 36415; 36591; 80053; 85025

== ENCOUNTER 2025-02-23 07:52 | Oncology outpatient (recurring) (ONCR) | payer MEDICARE, SELFPAY ==
[2025-02-23] VITALS (9 sets, daily range): BP systolic 121–134; BP diastolic 51–83; PULSE 18–78; RESP 17–18; TEMP 36.4–36.6; O2SAT 94–97
[2025-02-23 08:12] LABS: Basophils # 0.1 10^3/uL (0.0-0.1); Basophils % 0.9 %; Eosinophils # 0.2 10^3/uL (0.0-0.8); Eosinophils % 1.7 %; Hematocrit 27.6 % (36-47); Lymphocytes # 3.5 10^3/uL (0.8-4.8); Lymphocytes % 30.3 %; Mean Corpuscular HGB Conc 29.7 g/dL (30-55); Mean Corpuscular Hemoglobin 32.3 pg (27-33); Mean Corpuscular Volume 108.7 fl (85-98); Mean Platelet Volume 10.2 fL (7.4-10.4); Monocytes # 1.2 10^3/uL (0.2-0.9); Monocytes % 10.1 %; Neutrophils # 6.51 10^3/uL (1.8-7.7); Nucleated Red Blood Cells % 0 %; Platelet Count 401 10^3/cmm (157-399); Red Blood Count 2.54 10^6/uL (3.85-5.65); Red Cell Distribution Width 17.3 % (12.1-15.1); White Blood Count 11.64 10^3/uL (3.29-11.43)
[2025-02-23 08:40] LABS: Alanine Aminotransferase 30 U/L (0-33); Albumin Level 3.4 g/dL (3.5-5.2); Alkaline Phosphatase 147 U/L (35-105); Anion Gap 16.3 (5-19); Aspartate Amino Transferase 59 U/L (0-32); Blood Urea Nitrogen 21 mg/dL (8-23); Calcium 8.2 mg/dL (8.5-10.5); Carbon Dioxide 23 mmol/L (22-29); Chloride 106 mmol/L (98-107); Creatinine Clr Calc Pharmacy 39.8487; Globulin 3.2 g/dL (1.3-4.6); Glucose 238 mg/dL (65-115); Osmolality Calculated 303 mOsm/kg (285-295); Potassium 4.3 mmol/L (3.5-5.1); Sodium 141 mmol/L (136-145); Total Bilirubin 0.3 mg/dL (0.15-1.2); Total Protein 6.6 g/dL (6.6-8.7)
[2025-02-23] MEDS: acetaminophen 325 mg Tablet 650 MG PO (09:56)
[2025-02-23] MEDS: diphenhydrAMINE 25 mg Capsule PO (09:57)
[2025-02-23] MEDS: octreotide LAR depot 20 mg Kit 40 MG IM (15:25)
[2025-02-23] MEDS: sodium chloride 0.9% 250 mL Bag IV (16:50)
== END 2025-02-23 23:59 | disposition home or self-care (01) ==
PROVIDERS: Nurse Practitioner Family; PCP Family Medicine; Visit Provider Internal Medicine Medical Oncology
DX: D47.9 Neoplasm of uncertain behavior of lymphoid, hematopoietic and related tissue, unspecified (principal); R03.0 Elevated blood-pressure reading, without diagnosis of hypertension; D64.9 Anemia, unspecified; Z79.818 Long term (current) use of other agents affecting estrogen receptors and estrogen levels
CPT/HCPCS: 36430; 36591; 80053; 85025; 86850; 86900; 86920; 96402; 99214; J2353; J7050; J9999; P9040

== ENCOUNTER 2025-03-10 10:08 | Oncology outpatient (recurring) (ONCR) | payer MEDICARE, SELFPAY ==
[2025-03-09 09:33] LABS: Basophils # 0.1 10^3/uL (0.0-0.1); Eosinophils # 0.2 10^3/uL (0.0-0.8); Eosinophils % 1.9 %; Hematocrit 28.1 % (36-47); Lymphocytes # 4.4 10^3/uL (0.8-4.8); Lymphocytes % 35.7 %; Mean Corpuscular Hemoglobin 33.3 pg (27-33); Mean Corpuscular Volume 107.7 fl (85-98); Mean Platelet Volume 10.5 fL (7.4-10.4); Monocytes # 1.3 10^3/uL (0.2-0.9); Monocytes % 10.4 %; Neutrophils # 6.17 10^3/uL (1.8-7.7); Nucleated Red Blood Cells % 0.2 %; Platelet Count 432 10^3/cmm (157-399); Red Blood Count 2.61 10^6/uL (3.85-5.65); White Blood Count 12.32 10^3/uL (3.29-11.43)
[2025-03-10] MEDS: sodium chloride 0.9% 100 mL Bag 50 ML IV (12:05)
[2025-03-10 12:26] VITALS: BP 135/74; PULSE 76; RESP 18; TEMP 36.4; O2SAT 92
[2025-03-10 12:39] VITALS: BP 135/74; PULSE 76; RESP 18; TEMP 36.4; O2SAT 92
[2025-03-10 12:45] VITALS: BP 142/74; PULSE 73; RESP 18; TEMP 36.4; O2SAT 90
[2025-03-10 13:00] VITALS: BP 129/65; PULSE 74; RESP 17; TEMP 36.4; O2SAT 91
[2025-03-10 14:30] VITALS: BP 127/77; PULSE 74; RESP 18; TEMP 37.1; O2SAT 94
== END 2025-03-22 23:59 | disposition home or self-care (01) ==
PROVIDERS: Nurse Practitioner Family; PCP Family Medicine; Visit Provider Internal Medicine Medical Oncology
DX: R71.0 Precipitous drop in hematocrit (principal)
CPT/HCPCS: 36430; 36591; 85025; 86850; 86900; 86920; P9016

== ENCOUNTER 2025-03-24 07:27 | Oncology outpatient (recurring) (ONCR) | payer MEDICARE, SELFPAY ==
[2025-03-23 11:33] LABS: Hematocrit 26.8 % (36-47); Hemoglobin 8.00 g/dL (11.27-16.99); Mean Corpuscular HGB Conc 29.9 g/dL (30-55); Mean Corpuscular Hemoglobin 32.5 pg (27-33); Mean Corpuscular Volume 108.9 fl (85-98); Nucleated Red Blood Cells % 0.2 %; Platelet Count 437 10^3/cmm (157-399); Red Blood Count 2.46 10^6/uL (3.85-5.65); White Blood Count 12.65 10^3/uL (3.29-11.43)
[2025-03-23 11:58] LABS: Alanine Aminotransferase 36 U/L (0-33); Albumin Level 3.3 g/dL (3.5-5.2); Alkaline Phosphatase 183 U/L (35-105); Anion Gap 16.8 (5-19); Aspartate Amino Transferase 73 U/L (0-32); Blood Urea Nitrogen 20 mg/dL (8-23); Calcium 8.3 mg/dL (8.5-10.5); Carbon Dioxide 21 mmol/L (22-29); Chloride 108 mmol/L (98-107); Creatinine Clr Calc Pharmacy 51.9402; Globulin 3.0 g/dL (1.3-4.6); Glucose 254 mg/dL (65-115); Osmolality Calculated 303 mOsm/kg (285-295); Potassium 4.8 mmol/L (3.5-5.1); Sodium 141 mmol/L (136-145); Total Protein 6.3 g/dL (6.6-8.7)
[2025-03-23] MEDS: octreotide LAR depot 20 mg Kit 40 MG IM (14:52)
[2025-03-24] VITALS (9 sets, daily range): BP systolic 106–170; BP diastolic 49–93; PULSE 70–79; RESP 16–17; TEMP 36.3–37.1; O2SAT 90–95
== END 2025-03-24 23:59 | disposition home or self-care (01) ==
PROVIDERS: Nurse Practitioner Family; PCP Family Medicine; Visit Provider Internal Medicine
DX: D50.0 Iron deficiency anemia secondary to blood loss (chronic) (principal)
CPT/HCPCS: 36430; 80053; 85025; 86850; 86900; 86920; 96402; 99214; J2353; J7050; J9999; P9016

== ENCOUNTER 2025-04-20 13:30 | Oncology outpatient (recurring) (ONCR) | payer MEDICARE, SELFPAY ==
[2025-04-06 12:54] LABS: Hematocrit 26.9 % (36-47); Hemoglobin 8.00 g/dL (11.27-16.99); Mean Corpuscular HGB Conc 29.7 g/dL (30-55); Mean Corpuscular Hemoglobin 32.0 pg (27-33); Mean Corpuscular Volume 107.6 fl (85-98); Nucleated Red Blood Cells % 0.2 %; Platelet Count 457 10^3/cmm (157-399); Red Blood Count 2.50 10^6/uL (3.85-5.65); White Blood Count 15.53 10^3/uL (3.29-11.43)
[2025-04-06 13:11] LABS: Alanine Aminotransferase 36 U/L (0-33); Albumin Level 3.3 g/dL (3.5-5.2); Alkaline Phosphatase 185 U/L (35-105); Anion Gap 16.1 (5-19); Aspartate Amino Transferase 74 U/L (0-32); Blood Urea Nitrogen 18 mg/dL (8-23); Calcium 8.1 mg/dL (8.5-10.5); Carbon Dioxide 22 mmol/L (22-29); Chloride 107 mmol/L (98-107); Globulin 3.0 g/dL (1.3-4.6); Glucose 211 mg/dL (65-115); Osmolality Calculated 300 mOsm/kg (285-295); Potassium 4.1 mmol/L (3.5-5.1); Sodium 141 mmol/L (136-145); Total Protein 6.3 g/dL (6.6-8.7)
[2025-04-07] VITALS (10 sets, daily range): BP systolic 94–156; BP diastolic 57–71; PULSE 73–94; RESP 16–18; TEMP 36.2–36.5; O2SAT 92–97
[2025-04-20 12:42] LABS: Hematocrit 26.9 % (36-47); Hemoglobin 8.10 g/dL (11.27-16.99); Mean Corpuscular HGB Conc 30.1 g/dL (30-55); Mean Corpuscular Hemoglobin 32.3 pg (27-33); Mean Corpuscular Volume 107.2 fl (85-98); Nucleated Red Blood Cells % 0.2 %; Platelet Count 358 10^3/cmm (157-399); Red Blood Count 2.51 10^6/uL (3.85-5.65); White Blood Count 11.29 10^3/uL (3.29-11.43)
[2025-04-20 13:03] LABS: Alanine Aminotransferase 39 U/L (0-33); Albumin Level 3.2 g/dL (3.5-5.2); Alkaline Phosphatase 163 U/L (35-105); Anion Gap 15.1 (5-19); Aspartate Amino Transferase 84 U/L (0-32); Blood Urea Nitrogen 21 mg/dL (8-23); Calcium 8.4 mg/dL (8.5-10.5); Carbon Dioxide 22 mmol/L (22-29); Chloride 107 mmol/L (98-107); Creatinine Clr Calc Pharmacy 46.7200; Globulin 3.1 g/dL (1.3-4.6); Glucose 190 mg/dL (65-115); Osmolality Calculated 298 mOsm/kg (285-295); Potassium 4.1 mmol/L (3.5-5.1); Sodium 140 mmol/L (136-145); Total Protein 6.3 g/dL (6.6-8.7)
[2025-04-20 13:50] LABS: Ferritin 80 ng/mL (15-150); Iron 97 ug/dL (37-145); Total Iron Binding Capacity 329 mcg/dl; Unsaturated Iron Binding 232 ug/dL (112-347)
[2025-04-20 14:44] VITALS: BP 104/64; PULSE 71; RESP 16; TEMP 36.6; O2SAT 89
[2025-04-20 15:05] VITALS: BP 112/66; PULSE 68; RESP 17; TEMP 36.4; O2SAT 94
[2025-04-20 15:30] VITALS: BP 94/62; PULSE 73; RESP 17; TEMP 36.3; O2SAT 91
[2025-04-20 15:55] VITALS: BP 117/76; PULSE 68; RESP 17; TEMP 36.4; O2SAT 94
[2025-04-20 16:47] VITALS: BP 113/62; PULSE 70; TEMP 36.3; O2SAT 93
[2025-04-20] MEDS: octreotide LAR depot 20 mg Kit 40 MG IM (16:56)
== END 2025-04-20 23:59 | disposition home or self-care (01) ==
PROVIDERS: Nurse Practitioner Family; PCP Family Medicine; Visit Provider Internal Medicine
DX: Z53.9 Procedure and treatment not carried out, unspecified reason; K31.819 Angiodysplasia of stomach and duodenum without bleeding; Z79.818 Long term (current) use of other agents affecting estrogen receptors and estrogen levels; D50.0 Iron deficiency anemia secondary to blood loss (chronic); D47.9 Neoplasm of uncertain behavior of lymphoid, hematopoietic and related tissue, unspecified; R03.0 Elevated blood-pressure reading, without diagnosis of hypertension
CPT/HCPCS: 36430; 36591; 80053; 82728; 83540; 83550; 85025; 86850; 86900; 86920; 96402; 99214; J2353; J7050; J9999; P9016

== ENCOUNTER 2025-04-21 12:27 | Oncology outpatient (recurring) (ONCR) | payer MEDICARE, SELFPAY ==
[2025-04-21 13:05] VITALS: BP 106/67; PULSE 77; RESP 16; TEMP 36.7
[2025-04-21 13:25] VITALS: BP 104/59; PULSE 73; RESP 17; TEMP 36.9; O2SAT 93
[2025-04-21 13:40] VITALS: BP 126/78; PULSE 74; RESP 16; TEMP 37.1; O2SAT 93
[2025-04-21 13:57] VITALS: BP 141/76; PULSE 75; RESP 16; TEMP 37.1; O2SAT 93
[2025-04-21 14:57] VITALS: BP 129/61; PULSE 73; RESP 16; TEMP 36.4; O2SAT 96
== END 2025-04-22 23:59 | disposition home or self-care (01) ==
PROVIDERS: PCP Family Medicine; Visit Provider Internal Medicine
DX: D64.9 Anemia, unspecified (principal); Z79.899 Other long term (current) drug therapy
CPT/HCPCS: 36430; 86850; 86900; 86920; J7050; J9999; P9016

== ENCOUNTER → 2025-04-26 15:26 | Outpatient (BNVA) | payer MEDICARE, SELFPAY | PROVIDERS: PCP Family Medicine; Referring Provider Internal Medicine Cardiovascular Disease; Visit Provider Internal Medicine Cardiovascular Disease | DX: I25.10 Atherosclerotic heart disease of native coronary artery without angina pectoris (principal); I10 Essential (primary) hypertension; E11.65 Type 2 diabetes mellitus with hyperglycemia; Z79.4 Long term (current) use of insulin; D64.9 Anemia, unspecified; Z79.82 Long term (current) use of aspirin; Z95.2 Presence of prosthetic heart valve; Z86.718 Personal history of other venous thrombosis and embolism; R07.9 Chest pain, unspecified; R06.09 Other forms of dyspnea | CPT/HCPCS: 93005; 99204 ==

== ENCOUNTER 2025-05-18 10:00 | Oncology outpatient (recurring) (ONCR) | payer MEDICARE, SELFPAY ==
[2025-05-04 08:27] LABS: Hematocrit 26.2 % (36-47); Hemoglobin 7.90 g/dL (11.27-16.99); Mean Corpuscular HGB Conc 30.2 g/dL (30-55); Mean Corpuscular Hemoglobin 32.5 pg (27-33); Mean Corpuscular Volume 107.8 fl (85-98); Nucleated Red Blood Cells % 0.3 %; Platelet Count 390 10^3/cmm (157-399); Red Blood Count 2.43 10^6/uL (3.85-5.65); White Blood Count 13.13 10^3/uL (3.29-11.43)
[2025-05-04] MEDS: alteplase 1 mg/mL SDV 2 mL 2 MG INTRACATH (09:35)
[2025-05-04 10:30] LABS: Alanine Aminotransferase 39 U/L (0-33); Albumin Level 3.3 g/dL (3.5-5.2); Alkaline Phosphatase 202 U/L (35-105); Anion Gap 13.2 (5-19); Aspartate Amino Transferase 75 U/L (0-32); Blood Urea Nitrogen 15 mg/dL (8-23); Calcium 8.5 mg/dL (8.5-10.5); Carbon Dioxide 22 mmol/L (22-29); Chloride 107 mmol/L (98-107); Globulin 3.2 g/dL (1.3-4.6); Glucose 155 mg/dL (65-115); Osmolality Calculated 290 mOsm/kg (285-295); Potassium 4.2 mmol/L (3.5-5.1); Sodium 138 mmol/L (136-145); Total Protein 6.5 g/dL (6.6-8.7)
[2025-05-04 10:39] VITALS: BP 117/66; PULSE 69; RESP 18; TEMP 36.2; O2SAT 92
[2025-05-04 10:58] VITALS: BP 127/79; PULSE 71; RESP 18; TEMP 36.3; O2SAT 93
[2025-05-04] MEDS: FUROsemide 10 mg/mL SDV 2mL 20 MG IVP (13:10)
[2025-05-04 13:21] VITALS: BP 132/79; PULSE 72; RESP 17; TEMP 36.3; O2SAT 94
[2025-05-04 13:41] VITALS: BP 128/72; PULSE 72; RESP 17; TEMP 36.4; O2SAT 93
[2025-05-04 13:56] VITALS: BP 130/79; PULSE 70; RESP 17; TEMP 36.6; O2SAT 95
[2025-05-04 15:22] VITALS: BP 120/61; PULSE 68; RESP 17; TEMP 36.1; O2SAT 94
[2025-05-18] VITALS (10 sets, daily range): BP systolic 120–143; BP diastolic 57–87; PULSE 74–77; RESP 17–18; TEMP 36.6–36.8; O2SAT 92–98
[2025-05-18 10:19] LABS: Hematocrit 22.7 % (36-47); Hemoglobin 6.60 g/dL (11.27-16.99); Mean Corpuscular HGB Conc 29.1 g/dL (30-55); Mean Corpuscular Hemoglobin 33.0 pg (27-33); Mean Corpuscular Volume 113.5 fl (85-98); Nucleated Red Blood Cells % 0.6 %; Platelet Count 433 10^3/cmm (157-399); Red Blood Count 2.00 10^6/uL (3.85-5.65); White Blood Count 13.58 10^3/uL (3.29-11.43)
[2025-05-18 10:38] LABS: Alanine Aminotransferase 28 U/L (0-33); Albumin Level 3.2 g/dL (3.5-5.2); Alkaline Phosphatase 177 U/L (35-105); Anion Gap 14.0 (5-19); Aspartate Amino Transferase 63 U/L (0-32); Blood Urea Nitrogen 18 mg/dL (8-23); Calcium 8.1 mg/dL (8.5-10.5); Carbon Dioxide 22 mmol/L (22-29); Chloride 104 mmol/L (98-107); Creatinine Clr Calc Pharmacy 46.9692; Ferritin 82 ng/mL (15-150); Globulin 2.8 g/dL (1.3-4.6); Glucose 361 mg/dL (65-115); Iron 67 ug/dL (37-145); Osmolality Calculated 298 mOsm/kg (285-295); Potassium 4.0 mmol/L (3.5-5.1); Sodium 136 mmol/L (136-145); Total Iron Binding Capacity 341 mcg/dl; Total Protein 6.0 g/dL (6.6-8.7); Unsaturated Iron Binding 274 ug/dL (112-347)
[2025-05-18] MEDS: FUROsemide 10 mg/mL SDV 2mL 20 MG IVP (14:56)
[2025-05-18] MEDS: octreotide LAR depot 20 mg Kit 40 MG IM (16:53)
== END 2025-05-18 23:59 | disposition home or self-care (01) ==
PROVIDERS: Nurse Practitioner Family; PCP Family Medicine; Visit Provider Internal Medicine Medical Oncology
DX: D50.0 Iron deficiency anemia secondary to blood loss (chronic); K31.819 Angiodysplasia of stomach and duodenum without bleeding; D47.9 Neoplasm of uncertain behavior of lymphoid, hematopoietic and related tissue, unspecified; R03.0 Elevated blood-pressure reading, without diagnosis of hypertension; Z79.899 Other long term (current) drug therapy; Z79.818 Long term (current) use of other agents affecting estrogen receptors and estrogen levels; Z95.828 Presence of other vascular implants and grafts; Z53.9 Procedure and treatment not carried out, unspecified reason
CPT/HCPCS: 36430; 36591; 36593; 80053; 82728; 83540; 83550; 85025; 86850; 86900; 86920; 96374; 96375; 96402; 99214; J1938; J2353; J2997; J7050; J9999; P9016; P9040

== ENCOUNTER 2025-05-28 10:22 | Oncology outpatient (recurring) (ONCR) | payer MEDICARE, SELFPAY ==
[2025-05-28 10:19] LABS: Hematocrit 29.2 % (36-47); Hemoglobin 8.90 g/dL (11.27-16.99); Mean Corpuscular HGB Conc 30.5 g/dL (30-55); Mean Corpuscular Hemoglobin 31.1 pg (27-33); Mean Corpuscular Volume 102.1 fl (85-98); Nucleated Red Blood Cells % 0.2 %; Platelet Count 435 10^3/cmm (157-399); Red Blood Count 2.86 10^6/uL (3.85-5.65); White Blood Count 10.90 10^3/uL (3.29-11.43)
--- NOTE | 2025-05-28 10:28 | USCV_ITS ---
Moira Mckinnon Age: 75 Gender: F : 1950 Exam Date: 05/28/2025 10:43 Ordering Phys: Giovanni Alcocer MD Technologist: SPENSER Exam Location: [facility] [place] Indication: Dyspnea on exertion BP: 143 / 81 HR: 73 Rhythm: Sinus Technical Quality: Adequate MEASUREMENTS (Male / Female) Normal Values 2D ECHO LV Diastolic Diameter PLAX 4.5 cm 4.2 - 5.9 / 3.9 - 5.3 cm IVS Diastolic Thickness 0.9 cm 0.6 - 1.0 / 0.6 - 0.9 cm IVS Systolic Thickness 1.4 cm LVPW Diastolic Thickness 1.3 cm 0.6 - 1.0 / 0.6 - 0.9 cm LVPW Systolic Thickness 1.8 cm LVOT Diameter 1.8 cm LV Ejection Fraction 2D Teich 61.7 % LV Ejection Fraction MOD 4C 61.7 % LV Ejection Fraction MOD 2C 68.3 % LV Ejection Fraction 2C AL 71.1 % LA Diameter 4.2 cm RA Systolic Volume 4C AL 28.9 ml RA Systolic Volume 4C MOD 29.3 ml LA Sys Volume AL 78.2 cm cubed LA Sys Volume Index AL 38.5 cm cubed/m squared Aorta at Sinotubular Diameter 1.5 cm M-MODE LA Ao Ratio MM 2.9 AV Cusp Separation MM 1.1 cm DOPPLER AV Peak Velocity 158.0 cm/s LVOT Peak Velocity 131.0 cm/s AV Area Cont Eq vti 2.8 cm squared AV Area Cont Eq pk 2.2 cm squared MV Peak Velocity 181.0 cm/s MV Area PHT 3.3 cm squared Mitral E to A Ratio 0.7 TR Peak Velocity 207.0 cm/s TR Peak Gradient 17.1 mmHg TV Peak E Velocity 71.0 cm/s PV Peak Velocity 109.0 cm/s FINDINGS Left Ventricle Normal left ventricular size and systolic function, EF 60-65%. No regional wall motion abnormalities. Grade 1 diastolic dysfunction Right Ventricle Normal in size and function Right Atrium Normal in size Left Atrium Normal in size Mitral Valve Mitral valve is thickened and calcified. Mild to moderate mitral stenosis with mean gradient of 7 mmHg. Mild mitral regurgitation. Aortic Valve Grossly normal. No significant stenosis or regurgitation. Tricuspid Valve Insufficient TR jet to calculate RVSP Pulmonic Valve Not well visualized Pericardium Normal Aorta Normal in size IVC Not well visualized CONCLUSIONS LV systolic function is normal with EF of 60-65% Grade 1 diastolic dysfunction Mitral valve is thickened and calcified. Mild to moderate mitral stenosis with mean gradient of 7 mmHg. Mild mitral regurgitation. Gordo Ambrose MD (Electronically Signed) Final Date: 06 June 2025 13:54 S
== END 2025-06-22 23:59 | disposition home or self-care (01) ==
PROVIDERS: PCP Family Medicine; Visit Provider Internal Medicine Medical Oncology
DX: R06.09 Other forms of dyspnea; Z95.828 Presence of other vascular implants and grafts; D50.0 Iron deficiency anemia secondary to blood loss (chronic); R93.1 Abnormal findings on diagnostic imaging of heart and coronary circulation; I05.0 Rheumatic mitral stenosis; I05.9 Rheumatic mitral valve disease, unspecified; Z53.9 Procedure and treatment not carried out, unspecified reason
CPT/HCPCS: 36591; 85025; 93306

== ENCOUNTER 2025-07-06 11:12 | Oncology outpatient (recurring) (ONCR) | payer MEDICARE, SELFPAY ==
[2025-07-06] VITALS (12 sets, daily range): BP systolic 112–149; BP diastolic 55–84; PULSE 70–85; RESP 16–18; TEMP -12.7–37.1; O2SAT 94–98
[2025-07-06 08:27] LABS: Hematocrit 21.4 % (36-47); Mean Corpuscular HGB Conc 29.9 g/dL (30-55); Mean Corpuscular Hemoglobin 26.8 pg (27-33); Mean Corpuscular Volume 89.5 fl (85-98); Nucleated Red Blood Cells % 1.6 %; Platelet Count 423 10^3/cmm (157-399); Red Blood Count 2.39 10^6/uL (3.85-5.65); White Blood Count 11.34 10^3/uL (3.29-11.43)
[2025-07-06 08:45] LABS: Alanine Aminotransferase 27 U/L (0-33); Anion Gap 16.6 (5-19); Blood Urea Nitrogen 9 mg/dL (8-23); Ferritin 25 ng/mL (15-150); Globulin 3.6 g/dL (1.3-4.6); Glucose 89 mg/dL (65-115); Osmolality Calculated 292 mOsm/kg (285-295); Potassium 3.6 mmol/L (3.5-5.1); Sodium 142 mmol/L (136-145); Total Iron Binding Capacity 395 mcg/dl; Total Protein 7.0 g/dL (6.6-8.7)
[2025-07-06 08:47] LABS: Hemoglobin 6.40 g/dL (11.27-16.99)
[2025-07-06 09:18] LABS: Albumin Level 3.4 g/dL (3.5-5.2); Alkaline Phosphatase 178 U/L (35-105); Aspartate Amino Transferase 59 U/L (0-32); Calcium 8.4 mg/dL (8.5-10.5); Carbon Dioxide 21 mmol/L (22-29); Chloride 108 mmol/L (98-107); Iron 13 ug/dL (37-145); Unsaturated Iron Binding 382 ug/dL (112-347); Vitamin B12 1347 pg/mL (232-1245)
[2025-07-06] MEDS: octreotide LAR depot 20 mg Kit 40 MG IM (15:03)
== END 2025-07-06 23:59 | disposition home or self-care (01) ==
PROVIDERS: PCP Family Medicine; Visit Provider Internal Medicine Medical Oncology
DX: Z53.9 Procedure and treatment not carried out, unspecified reason (principal); K31.819 Angiodysplasia of stomach and duodenum without bleeding; D50.0 Iron deficiency anemia secondary to blood loss (chronic); E11.65 Type 2 diabetes mellitus with hyperglycemia; D47.9 Neoplasm of uncertain behavior of lymphoid, hematopoietic and related tissue, unspecified; R03.0 Elevated blood-pressure reading, without diagnosis of hypertension; Z79.899 Other long term (current) drug therapy; Z79.818 Long term (current) use of other agents affecting estrogen receptors and estrogen levels
CPT/HCPCS: 36430; 36591; 80053; 82607; 82728; 82746; 83540; 83550; 85025; 86850; 86900; 86920; 96372; 96402; 96523; 99214; J2353; J7050; J9999; P9016

== ENCOUNTER 2025-07-21 07:43 | Oncology outpatient (recurring) (ONCR) | payer MEDICARE, SELFPAY ==
[2025-07-20 08:07] LABS: Hematocrit 24.0 % (36-47); Hemoglobin 7.20 g/dL (11.27-16.99); Mean Corpuscular HGB Conc 30.0 g/dL (30-55); Mean Corpuscular Hemoglobin 29.5 pg (27-33); Mean Corpuscular Volume 98.4 fl (85-98); Nucleated Red Blood Cells % 0.4 %; Platelet Count 414 10^3/cmm (157-399); Red Blood Count 2.44 10^6/uL (3.85-5.65); White Blood Count 11.69 10^3/uL (3.29-11.43)
[2025-07-20 08:29] LABS: Alanine Aminotransferase 24 U/L (0-33); Albumin Level 3.4 g/dL (3.5-5.2); Alkaline Phosphatase 203 U/L (35-105); Anion Gap 16.0 (5-19); Aspartate Amino Transferase 59 U/L (0-32); Blood Urea Nitrogen 13 mg/dL (8-23); Calcium 8.4 mg/dL (8.5-10.5); Carbon Dioxide 21 mmol/L (22-29); Chloride 103 mmol/L (98-107); Globulin 3.5 g/dL (1.3-4.6); Glucose 325 mg/dL (65-115); Osmolality Calculated 295 mOsm/kg (285-295); Potassium 4.0 mmol/L (3.5-5.1); Sodium 136 mmol/L (136-145); Total Protein 6.9 g/dL (6.6-8.7)
[2025-07-21] VITALS (12 sets, daily range): BP systolic 129–172; BP diastolic 61–99; PULSE 85–98; RESP 16–17; TEMP 35.9–37.1; O2SAT 94–98
[2025-07-21] MEDS: FUROsemide 10 mg/mL SDV 2mL 20 MG IVP (11:13)
== END 2025-07-23 23:59 | disposition home or self-care (01) ==
PROVIDERS: PCP Family Medicine; Visit Provider Internal Medicine Medical Oncology
DX: D50.0 Iron deficiency anemia secondary to blood loss (chronic) (principal)
CPT/HCPCS: 36430; 80053; 85025; 86850; 86900; 86920; 96374; 99215; J1938; J7050; J9999; P9016

== ENCOUNTER 2025-08-03 09:00 | Oncology outpatient (recurring) (ONCR) | payer MEDICARE, SELFPAY ==
[2025-07-27 08:37] LABS: Hematocrit 31.5 % (36-47); Hemoglobin 9.60 g/dL (11.27-16.99); Mean Corpuscular HGB Conc 30.5 g/dL (30-55); Mean Corpuscular Hemoglobin 29.4 pg (27-33); Mean Corpuscular Volume 96.3 fl (85-98); Nucleated Red Blood Cells % 0 %; Platelet Count 403 10^3/cmm (157-399); Red Blood Count 3.27 10^6/uL (3.85-5.65); White Blood Count 10.97 10^3/uL (3.29-11.43)
[2025-07-27] MEDS: diphenhydrAMINE 50 mg/mL SDV 1mL 25 MG IVP (08:54)
[2025-07-27] MEDS: iron dextran 1,000 MG in sodium chloride 0.9% 1,000 ML 250.75 MG IV (10:43)
[2025-07-27 10:44] VITALS: BP 140/66; PULSE 75; RESP 16; TEMP 36.7; O2SAT 94
[2025-07-27 14:52] VITALS: BP 148/74; PULSE 77; RESP 17; TEMP 36.7; O2SAT 92
[2025-08-03 08:31] LABS: Hematocrit 31.2 % (36-47); Hemoglobin 9.50 g/dL (11.27-16.99); Mean Corpuscular HGB Conc 30.4 g/dL (30-55); Mean Corpuscular Hemoglobin 30.5 pg (27-33); Mean Corpuscular Volume 100.3 fl (85-98); Nucleated Red Blood Cells % 1.0 %; Platelet Count 318 10^3/cmm (157-399); Red Blood Count 3.11 10^6/uL (3.85-5.65); White Blood Count 12.67 10^3/uL (3.29-11.43)
[2025-08-03 08:51] LABS: Alanine Aminotransferase 29 U/L (0-33); Albumin Level 3.4 g/dL (3.5-5.2); Alkaline Phosphatase 223 U/L (35-105); Anion Gap 15.6 (5-19); Aspartate Amino Transferase 62 U/L (0-32); Blood Urea Nitrogen 15 mg/dL (8-23); Calcium 9.0 mg/dL (8.5-10.5); Carbon Dioxide 22 mmol/L (22-29); Chloride 103 mmol/L (98-107); Globulin 3.4 g/dL (1.3-4.6); Glucose 331 mg/dL (65-115); Osmolality Calculated 298 mOsm/kg (285-295); Potassium 3.6 mmol/L (3.5-5.1); Sodium 137 mmol/L (136-145); Total Protein 6.8 g/dL (6.6-8.7)
[2025-08-03] MEDS: octreotide LAR depot 20 mg Kit 40 MG IM (11:26)
== END 2025-08-03 23:59 | disposition home or self-care (01) ==
PROVIDERS: Nurse Practitioner Family; PCP Family Medicine; Visit Provider Internal Medicine Medical Oncology
DX: D47.9 Neoplasm of uncertain behavior of lymphoid, hematopoietic and related tissue, unspecified; R03.0 Elevated blood-pressure reading, without diagnosis of hypertension; R53.1 Weakness; R07.9 Chest pain, unspecified; Z95.828 Presence of other vascular implants and grafts; Z79.899 Other long term (current) drug therapy; Z79.818 Long term (current) use of other agents affecting estrogen receptors and estrogen levels; Z91.81 History of falling; Z53.9 Procedure and treatment not carried out, unspecified reason
CPT/HCPCS: 80053; 85025; 96365; 96366; 96375; 96402; 99214; J1200; J1750; J2353; J7030; J7040; J9999

== ENCOUNTER 2025-08-17 07:50 | Oncology outpatient (recurring) (ONCR) | payer MEDICARE, SELFPAY ==
[2025-08-17 08:11] LABS: Hematocrit 32.6 % (36-47); Hemoglobin 10.10 g/dL (11.27-16.99); Mean Corpuscular HGB Conc 31.0 g/dL (30-55); Mean Corpuscular Hemoglobin 32.4 pg (27-33); Mean Corpuscular Volume 104.5 fl (85-98); Nucleated Red Blood Cells % 0 %; Platelet Count 381 10^3/cmm (157-399); Red Blood Count 3.12 10^6/uL (3.85-5.65); White Blood Count 8.00 10^3/uL (3.29-11.43)
== END 2025-08-22 23:59 | disposition home or self-care (01) ==
LOC: ONCMED 07:50
PROVIDERS: Nurse Practitioner Family; PCP Family Medicine; Visit Provider Internal Medicine Medical Oncology
DX: D50.0 Iron deficiency anemia secondary to blood loss (chronic) (principal); K31.819 Angiodysplasia of stomach and duodenum without bleeding
CPT/HCPCS: 36591; 85025

== ENCOUNTER 2025-09-02 08:00 | Oncology outpatient (recurring) (ONCR) | payer MEDICARE, SELFPAY ==
[2025-08-31 09:24] LABS: Hematocrit 25.5 % (36-47); Hemoglobin 7.80 g/dL (11.27-16.99); Mean Corpuscular HGB Conc 30.6 g/dL (30-55); Mean Corpuscular Hemoglobin 32.9 pg (27-33); Mean Corpuscular Volume 107.6 fl (85-98); Nucleated Red Blood Cells % 0.2 %; Platelet Count 411 10^3/cmm (157-399); Red Blood Count 2.37 10^6/uL (3.85-5.65); White Blood Count 11.42 10^3/uL (3.29-11.43)
[2025-08-31 09:50] LABS: Alanine Aminotransferase 44 U/L (0-33); Albumin Level 3.5 g/dL (3.5-5.2); Alkaline Phosphatase 236 U/L (35-105); Anion Gap 12.9 (5-19); Aspartate Amino Transferase 88 U/L (0-32); Blood Urea Nitrogen 15 mg/dL (8-23); Carbon Dioxide 24 mmol/L (22-29); Chloride 107 mmol/L (98-107); Globulin 3.4 g/dL (1.3-4.6); Glucose 106 mg/dL (65-115); Osmolality Calculated 291 mOsm/kg (285-295); Potassium 3.9 mmol/L (3.5-5.1); Sodium 140 mmol/L (136-145); Total Protein 6.9 g/dL (6.6-8.7)
[2025-08-31 10:06] LABS: Calcium 8.9 mg/dL (8.5-10.5)
[2025-08-31 11:59] VITALS: BP 122/74; PULSE 78; RESP 17; O2SAT 98
[2025-08-31] MEDS: octreotide LAR depot 20 mg Kit 40 MG IM (11:59)
[2025-09-02] VITALS (10 sets, daily range): BP systolic 112–152; BP diastolic 59–76; PULSE 79–118; RESP 16–17; TEMP 36.3–36.9; O2SAT 95–97
== END 2025-09-02 23:59 | disposition home or self-care (01) ==
PROVIDERS: Nurse Practitioner Family; PCP Family Medicine; Visit Provider Nurse Practitioner
DX: Z53.9 Procedure and treatment not carried out, unspecified reason; D50.0 Iron deficiency anemia secondary to blood loss (chronic); Z79.899 Other long term (current) drug therapy
CPT/HCPCS: 36430; 36591; 80053; 85025; 86850; 86900; 86920; 96402; 99214; J2353; J7050; J9999; P9016

== ENCOUNTER 2025-09-14 10:45 | Oncology outpatient (recurring) (ONCR) | payer MEDICARE, SELFPAY ==
[2025-09-09 08:41] VITALS: BP 163/68; PULSE 92; TEMP 36.8; O2SAT 97
[2025-09-09] MEDS: diphenhydrAMINE 50 mg/mL SDV 1mL 25 MG IVP (09:19)
[2025-09-09] MEDS: iron dextran 1,000 MG in sodium chloride 0.9% 1,000 ML 250.75 MG IV (10:48)
[2025-09-09 15:05] VITALS: BP 130/62; PULSE 84; TEMP 36.6; O2SAT 95
[2025-09-14 09:21] LABS: Hematocrit 24.0 % (36-47); Hemoglobin 7.40 g/dL (11.27-16.99); Mean Corpuscular HGB Conc 30.8 g/dL (30-55); Mean Corpuscular Hemoglobin 34.1 pg (27-33); Mean Corpuscular Volume 110.6 fl (85-98); Nucleated Red Blood Cells % 1.3 %; Platelet Count 387 10^3/cmm (157-399); Red Blood Count 2.17 10^6/uL (3.85-5.65); White Blood Count 12.74 10^3/uL (3.29-11.43)
[2025-09-14 09:39] LABS: Alanine Aminotransferase 37 U/L (0-33); Albumin Level 3.3 g/dL (3.5-5.2); Alkaline Phosphatase 192 U/L (35-105); Anion Gap 15.6 (5-19); Aspartate Amino Transferase 77 U/L (0-32); Blood Urea Nitrogen 15 mg/dL (8-23); Calcium 8.6 mg/dL (8.5-10.5); Carbon Dioxide 21 mmol/L (22-29); Chloride 107 mmol/L (98-107); Globulin 2.8 g/dL (1.3-4.6); Glucose 346 mg/dL (65-115); Osmolality Calculated 305 mOsm/kg (285-295); Potassium 3.6 mmol/L (3.5-5.1); Sodium 140 mmol/L (136-145); Total Protein 6.1 g/dL (6.6-8.7)
== END 2025-09-22 23:59 | disposition home or self-care (01) ==
PROVIDERS: Internal Medicine Medical Oncology; PCP Family Medicine; Visit Provider Nurse Practitioner
DX: D50.0 Iron deficiency anemia secondary to blood loss (chronic); K31.819 Angiodysplasia of stomach and duodenum without bleeding; Z53.9 Procedure and treatment not carried out, unspecified reason
CPT/HCPCS: 36591; 80053; 85025; 96365; 96366; 96375; J1200; J1750; J7030; J7040; J9999

== ENCOUNTER 2025-09-18 01:29 | Emergency (ER) | payer MEDICARE, SELFPAY ==
[2025-09-18 01:29] VITALS: BP 160/72; PULSE 93; RESP 14; TEMP 36.8; O2SAT 93; BMI 24.0
--- NOTE | 2025-09-18 01:31 | XRR_ITS ---
PROCEDURE INFORMATION: Exam: XR Left Shoulder Exam date and time: 09/18/2025 1:39 AM Age: 75 years old Clinical indication: Injury or trauma; Blunt trauma (contusions or hematomas); Prior surgery; Surgery date: 6+ months; Surgery type: Shoulder arthroplasty; Ground level fall onto left side. C/O severe left shoulder pain. TECHNIQUE: Imaging protocol: Radiologic exam of the left shoulder. Views: 2 or more views. COMPARISON: CR XR chest 1V portable [id number] 08/27/2023 2:10 PM FINDINGS: Bones/joints: Displaced proximal humerus fracture with 4.0 cm of foreshortening. Left shoulder arthroplasty. No hardware fracture. Soft tissues: No radiopaque foreign body. XR/XR shoulder LT min 2V* [id number] IMPRESSION: Displaced proximal humerus fracture.
--- OUTSIDE RECORDS SUMMARY | 2025-09-18 01:33 | XMS_ITS | Encounter Summary ---
Author Organization [employer] [facility] Address [address] [place] [address] Care Team Providers Care Grip Wrapper Name Role Phone Charles Delgadillo MD Primary Care Provider [phone] Encounter Details Date Type Department Care Team (Latest Contact Info) Description 01/12/2007 Outpatient Historical [facility] [address] 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
--- OUTSIDE RECORDS SUMMARY | 2025-09-18 01:34 | XMS_ITS | Encounter Summary ---
Author Organization [facility] Address [address] [place] [address] Care Team Providers Care Advertising Vice President Name Role Phone Charles Delgadillo MD Primary Care Provider [phone] Encounter Details Date Type Department Care Team (Late st Contact Info) Description 10/28/2007 Outpatient [facility] [address] [phone] Antonio Lopez MD [address] [place] [address] Social History Tobacco Use Types Packs/Day Years Used Date Smoking Tobacco: Never Assessed Comments Unknown Sex and Gender Information Value Date Recorded Sex Assigned at Not on file 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
--- OUTSIDE RECORDS SUMMARY | 2025-09-18 01:34 | XMS_ITS | Encounter Summary ---
Author Organization [facility] Address [address] [place] [address] Care Team Providers Care Radar Mechanic Name Role Phone Charles Delgadillo MD Primary Care Provider [phone] Encounter Details Date Type Department Care Team (Latest Contact Info) Description 02/21/2007 Outpatient Historical [facility] Medicine [place] [address] [place] [phone] Roz Capellan MD [address] [place] [phone] Unspecified Backache (Primary Dx); Unspecified Anemia; Unspecified Vaginitis and Vulvovaginitis Social History Tobacco Use Types Packs/Day Years Used Date Smoking Tobacco: Never Assessed Comments Unknown Sex and Gender Information Value Date Recorded Sex Assigned at Not on file 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
--- OUTSIDE RECORDS SUMMARY | 2025-09-18 01:34 | XMS_ITS | Encounter Summary ---
Author Organization [facility] Address [address] [place] [address] Care Team Providers Care Senior Bioinformatics Specialist Name Role Phone Charles Delgadillo MD Primary Care Provider [phone] Encounter Details Date Type Department Care Team (Latest Contact Info) Description 02/27/2007 Outpatient Historical [facility] General and Trauma Surgery-[address] [place] [address] Marlo Haywood MD [address] [place] [address] [address] [place] [address] Follow-Up Examination, Following Unspecified Surgery (Primary Dx) Social History Tobacco Use Types Packs/Day Years Used Date Smoking Tobacco: Never Assessed Comments Unknown Sex and Gender Information Value Date Recorded Sex Assigned at Not on file Legal Sex Female 5:59 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
--- OUTSIDE RECORDS SUMMARY | 2025-09-18 01:34 | XMS_ITS | Encounter Summary ---
Author Organization [facility] Address [address] [place] [address] Care Team Providers Care Pin Feather Machine Operator Name Role Phone Charles Delgadillo MD Primary Care Provider [phone] Encounter Details Date Type Department Care Team (Late st Contact Info) Description 03/16/2008 Outpatient [facility] [address] [facility] [address] [place] [address] Vasiliy Xiao MD [address] [facility] [address] [place] [phone] Social History Tobacco Use Types Packs/Day Years Used Date Smoking Tobacco: Never Assessed Comments No Sex and Gender Information Value Date Recorded Sex Assigned at Not on file Legal 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
--- OUTSIDE RECORDS SUMMARY | 2025-09-18 01:34 | XMS_ITS | Encounter Summary ---
Author Organization [facility] Address [address] [place] [address] Care Team Providers Care Dispatcher Service Chief Name Role Phone Charles Delgadillo MD Primary Care Provider [phone] Encounter Details Date Type Department Care Team (Late st Contact Info) Description 02/10/2007 Inpatient Historical [facility] Adeel Jenkins, DO [address] [place], [place] [address] Peritoneal Abscess (CMS/HCC) (Primary Dx) Social History Tobacco Use Types Packs/Day Years Used Date Smoking Tobacco: Never Assessed Comments Unknown Sex and Gender Information Value Date Recorded Sex Assigned at Not on file Legal Sex Female 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 DIFFICILE DETECTION Routine 7 1:02 PM CDT CBC WITH DIFFERENTIAL Routine 02/12/2007 4:13 AM CDT COMPREHENSIVE METABOLIC PANEL Routine 02/12/2007 4:13 AM CDT PT AND APTT Routine 02/11/2007 3:55 AM CDT CBC WITH DIFFERENTIAL Routine 02/11/2007 3:55 AM CDT COMPREHENSIVE METABOLIC PANEL Routine 02/11/2007 3:55 AM CDT DIFFERENTIAL, MANUAL Routine 02/10/2007 2:17 PM CDT CBC WITH DIFFERENTIAL Routine 02/10/2007 2:17 PM CDT COMPREHENSIVE METABOLIC PANEL Routine 02/10/2007 2:17 PM CDT documented in this encounter Results * CLOSTRIDIUM DIFFICILE TOXIN (02/12/2007 1:02 PM CDT) C DIFFICILE TOXIN Negative Negative INTERFACE SYSTEM 02/12/2007 1:02 PM CDT us Adeel Jenkins DO MICROBIOLOGY - GENERAL ORDERAB LES Edited INTERFACE SYSTEM Refer to clinic/hospital department * (ABNORMAL) COMPREHENSIVE METABOLIC PANEL (02/12/2007 4:13 AM CDT) GLOBULIN (CALC) 4.9(H) 2.4 - 3.9 g/dL INTERFACE SYSTEM ALBUMIN/GLOBULIN RATIO 0.7(L) 1.0 - 2.3 INTERFACE SYSTEM GLUCOSE 120(H) 70 - 110 mg/dL INTERFACE SYSTEM BUN 14 7 - 17 mg/dL INTERFACE SYSTEM CREATININE 1.2 0.7 - 1.2 mg/dL INTERFACE SYSTEM SODIUM 139 136 - 145 mEq/L INTERFACE SYSTEM POTASSIUM 3.8 3.5 - 5.0 mEq/L INTERFACE SYSTEM CHLORIDE 105 95 - 110 mEq/L INTERFACE SYSTEM CO2 23 22 - 32 mmol/l INTERFACE SYSTEM CALCIUM 10.4 8.4 - 10.5 mg/dL INTERFACE SYSTEM TOTAL PROTEIN 8.3(H) 6.3 - 8.2 g/dL INTERFACE SYSTEM ALBUMIN 3.4(L) 3.5 - 5.0 g/dL INTERFACE SYSTEM ALKALINE PHOSPHATASE 274(H) 25 - 100 U/L INTERFACE SYSTEM AST 19 8 - 33 U/L INTERFACE SYSTEM ALT 18 4 - 36 IU/L INTERFACE SYSTEM BILIRUBIN TOTAL 0.5 0.3 - 1.2 mg/dL INTERFACE SYSTEM ANION GAP 15 9 - 20 mEq/L INTERFACE SYSTEM OSMOLALITY, CALCULATED 287 275 - 295 mOsm/Kg INTERFACE SYSTEM 02/12/2007 4:13 AM CDT Adeel Esvin Gregory CHEMISTRY ORDERABLES Edited INTERFACE SYSTEM Refer to clinic/hospital department * (ABNORMAL) CBC WITH DIFFERENTIAL (02/12/2007 4:13 AM CDT) WBC 10.9(H) 4.8 - 10.8 K/ul INTERFACE SYSTEM RBC 3.66(L) 4.20 - 5.40 Mil/ul INTERFACE SYSTEM HEMOGLOBIN 10.0(L) 12.0 - 16.0 g/dL INTERFACE SYSTEM HEMATOCRIT 32.5(L) 36.0 - 46.0 % INTERFACE SYSTEM MCV 88.8 84.0 - 103.0 Fl INTERFACE SYSTEM MCH 27.3 27.0 - 34.0 pg INTERFACE SYSTEM MCHC 30.8 30.0 - 35.0 g/dL INTERFACE SYSTEM RDW 15.3(H) 11.0 - 14.5 % INTERFACE SYSTEM PLATELETS 1,173(AA) 140 - 440 K/ul INTERFACE SYSTEM Comment: Potentially critical/toxic plt called by TT to SINDI PARR, with verbal read back, at 02/12/07 04:28. MPV 9.3 8.9 - 12.8 Fl INTERFACE SYSTEM NEUTROPHILS 60.0 42.2 - 75.2 % INTERFACE SYSTEM LYMPHOCYTES 26.5 24.0 - 44.0 % INTERFACE SYSTEM MONOCYTES 10.4(H) 2.0 - 10.0 % INTERFA CE SYSTEM EOSINOPHILS 2.6 0.0 - 7.0 % INTERF KRAIG SYSTEM BASOPHILS 0.5 0.0 - 1.0 % INTERFAC E SYSTEM NEUTROPHIL ABSOLUTE 6.6 2.0 - 8.0 K/ul INTERFACE SYSTEM LYMPHOCYTE ABSOLUTE 2.9 1.2 - 4.0 K/ul INTERFACE SYSTEM MONOCYTE ABSOLUTE 1.1(H) 0.1 - 0.6 K/ul INTERFACE SYSTEM EOSINOPHIL ABSOLUTE 0.3 0.0 - 0.7 K/ul INTERFACE SYSTEM BASOPHILS ABSOLUTE 0.1 0.0 - 0.2 K/ul INTERFACE SYSTEM PERIPHERAL BLOOD SMEAR REVIEW Automated Diff Automated Diff INTERFACE SYSTEM 02/12/2007 4:13 AM CDT Adeel Jenkins DO HEMATOLOGY ORDERABLES Edited INTERFACE SYSTEM Refer to clinic/hospital department * (ABNORMAL) PT AND APTT (02/11/2007 3:55 AM CDT) PROTIME 16.2(H) 13.0 - 15.7 Secs INTERFACE SYSTEM Comment: As of 06 note change in normal range. INR 1.2 INTERFACE SYSTEM Comment: Expected Values for INR: DVT/PE Goal INR 2.5; range 2.0 - 3.0 Valve Replacement Tissue Goal INR 2.5; range 2.0 - 3.0 Mechanical Goal INR 3.0; range 2.5 - 3.5 POST-FL Goal INR 2.5; range 2.0 - 3.0 or Goal 3.0; range 2.5 - 3.5 Atrial Fibrillation Goal INR 2.5; range 2.0 - 3.0 Ischemic Stroke Goal INR 2.5; range 2.0 - 3.0 For additional information see Guidelines for Anticoagulation available from the pharmacy Faustina Tellez Pharm D. PTT 38.7(H) 21.6 - 35.6 Secs INTERFACE SYSTEM Comment: Therapeutic Range: Hi-level PE/DVT heparin protocol 80.1 -95.0 sec Lo-level PE/DVT heparin protocol 67.1 - 80.0 sec Cardiac Heparin Protocol 67.1 - 85.0 sec Neuro Heparin Protocol 67.1 - 80.0 sec As of 08/29/2006 note change in APTT Normal Range. 02/11/2007 3:55 AM CDT Adeel Jenkins DO HEMATOLOGY ORDERABLES Edited INTERFACE SYSTEM Refer to clinic/hospital department * (ABNORMAL) COMPREHENSIVE METABOLIC PANEL (02/11/2007 3:55 AM CDT) GLOBULIN (CALC) 4.1(H) 2.4 - 3.9 g/dL INTERFACE SYSTEM ALBUMIN/GLOBULIN RATIO 1.0 1.0 - 2.3 INTERFACE SYSTEM GLUCOSE 91 70 - 110 mg/dL INTERFACE SYSTEM BUN 15 7 - 17 mg/dL INTERFACE SYSTEM CREATININE 1.1 0.7 - 1.2 mg/dL INTERFACE SYSTEM SODIUM 138 136 - 145 mEq/L INTERFACE SYSTEM POTASSIUM 4.2 3.5 - 5.0 mEq/L INTERFACE SYSTEM CHLORIDE 103 95 - 110 mEq/L INTERFACE SYSTEM CO2 20(L) 22 - 32 mmol/l INTERFACE SYSTEM CALCIUM 10.2 8.4 - 10.5 mg/dL INTERFACE SYSTEM TOTAL PROTEIN 8.0 6.3 - 8.2 g/dL INTERFACE SYSTEM ALBUMIN 3.9 3.5 - 5.0 g/dL INTERFACE SYSTEM ALKALINE PHOSPHATASE 277(H) 25 - 100 U/L INTERFACE SYSTEM AST 19 8 - 33 U/L INTERFACE SYSTEM ALT 19 4 - 36 IU/L INTERFACE SYSTEM BILIRUBIN TOTAL 0.5 0.3 - 1.2 mg/dL INTERFACE SYSTEM ANION GAP 19 9 - 20 mEq/L INTERFACE SYSTEM OSMOLALITY, CALCULATED 285 275 - 295 mOsm/Kg INTERFACE SYSTEM 02/11/2007 3:55 AM CDT us Adeel Jenkins DO CHEMISTRY ORDERABLES Edited INTERFACE SYSTEM Refer to clinic/hospital department * (ABNORMAL) CBC WITH DIFFERENTIAL (02/11/2007 3:55 AM CDT) WBC 14.9(H) 4.8 - 10.8 K/ul INTERFACE SYSTEM RBC 3.34(L) 4.20 - 5.40 Mil/ul INTERFACE SYSTEM HEMOGLOBIN 9.3(L) 12.0 - 16.0 g/dL INTERFACE SYSTEM HEMATOCRIT 29.3(L) 36.0 - 46.0 % INTERFACE SYSTEM MCV 87.7 84.0 - 103.0 Fl INTERFACE SYSTEM MCH 27.8 27.0 - 34.0 pg INTERFACE SYSTEM MCHC 31.7 30.0 - 35.0 g/dL INTERFACE SYSTEM RDW 15.4(H) 11.0 - 14.5 % INTERFACE SYSTEM PLATELETS 1,091(AA) 140 - 440 K/ul INTERFACE SYSTEM Comment: Potentially critical/toxic PLATELET COUNT called by LKL to Theo BRITO RN , with verbal read back, at 02/11/07 04:38. MPV 9.0 8.9 - 12.8 Fl INTERFACE SYSTEM NEUTROPHILS 64.8 42.2 - 75.2 % INTERFACE SYSTEM LYMPHOCYTES 21.3(L) 24.0 - 44.0 % INTERFACE SYSTEM MONOCYTES 11.3(H) 2.0 - 10.0 % INTERFA CE SYSTEM EOSINOPHILS 2.1 0.0 - 7.0 % INTERF KRAIG SYSTEM BASOPHILS 0.5 0.0 - 1.0 % INTERFAC E SYSTEM NEUTROPHIL ABSOLUTE 9.6(H) 2.0 - 8.0 K/ul INTERFACE SYSTEM LYMPHOCYTE ABSOLUTE 3.2 1.2 - 4.0 K/ul INTERFACE SYSTEM MONOCYTE ABSOLUTE 1.7(H) 0.1 - 0.6 K/ul INTERFACE SYSTEM EOSINOPHIL ABSOLUTE 0.3 0.0 - 0.7 K/ul INTERFACE SYSTEM BASOPHILS ABSOLUTE 0.1 0.0 - 0.2 K/ul INTERFACE SYSTEM PERIPHERAL BLOOD SMEAR REVIEW Smear Reviewed Automated Diff INTERFACE SYSTEM 02/11/2007 3:55 AM CDT Adeel Jenkins DO HEMATOLOGY ORDERABLES Edited INTERFACE SYSTEM Refer to clinic/hospital department * (ABNORMAL) COMPREHENSIVE METABOLIC PANEL (02/10/2007 2:17 PM CDT) GLUCOSE 110 70 - 110 mg/dL INTERFACE SYSTEM BUN 16 7 - 17 mg/dL INTERFACE SYSTEM CREATININE 1.0 0.7 - 1.2 mg/dL INTERFACE SYSTEM SODIUM 136 136 - 145 mEq/L INTERFACE SYSTEM POTASSIUM 4.4 3.5 - 5.0 mEq/L INTERFACE SYSTEM CHLORIDE 101 95 - 110 mEq/L INTERFACE SYSTEM CO2 24 22 - 32 mmol/l INTERFACE SYSTEM CALCIUM 10.9(H) 8.4 - 10.5 mg/dL INTERFACE SYSTEM TOTAL PROTEIN 9.6(H) 6.3 - 8.2 g/dL INTERFACE SYSTEM ALBUMIN 4.6 3.5 - 5.0 g/dL INTERFACE SYSTEM ALKALINE PHOSPHATASE 363(H) 25 - 100 U/L INTERFACE SYSTEM AST 29 8 - 33 U/L INTERFACE SYSTEM ALT 26 4 - 36 IU/L INTERFACE SYSTEM BILIRUBIN TOTAL 0.7 0.3 - 1.2 mg/dL INTERFACE SYSTEM GLOBULIN (CALC) 5.0(H) 2.4 - 3.9 g/dL INTERFACE SYSTEM ALBUMIN/GLOBULIN RATIO 0.9(L) 1.0 - 2.3 INTERFACE SYSTEM ANION GAP 15 9 - 20 mEq/L INTERFACE SYSTEM OSMOLALITY, CALCULATED 283 275 - 295 mOsm/Kg INTERFACE SYSTEM 02/10/2007 2:17 PM CDT [facility] CHEMISTRY ORDERABLES Edited Performing Organization Address [facility] Phone Number INTERFACE SYSTEM Refer to clinic/hospital department * (ABNORMAL) DIFFERENTIAL, MANUAL (02/10/2007 2:17 PM CDT) NEUTROPHILS, SEG 72(H) 36 - 66 % INT ERFACE SYSTEM LYMPHOCYTES 22(L) 24 - 44 % INTERFAC E SYSTEM MONOCYTE 3(L) 4 - 10 % INTERFACE SYSTEM MYELOCYTES 3(H) <=1 % INTERFACE SYSTEM PLATELET EST. Increased (A) Normal INTERFACE SYSTEM RBC MORPHOLOGY Abnormal( A) Normal INTERFACE SYSTEM ANISOCYTOSIS 1+(A) None Seen INTERFA CE SYSTEM POLYCHROMASIA 1+(A) None Seen INTERF KRAIG SYSTEM VACUOLATED NEUTROPHILS Few(A) None Seen INTERFACE SYSTEM HYPOCHROMIA 2+(A) None Seen INTERFAC E SYSTEM 02/10/2007 2:17 PM CDT Result [facility] Adeel Jenkins DO HEMATOLOGY ORDERABLES COM Edit ed Performing Organization Address [facility] Phone Number INTERFACE SYSTEM Refer to clinic/hospital department * (ABNORMAL) CBC WITH DIFFERENTIAL (02/10/2007 2:17 PM CDT) WBC 20.8(H) 4.8 - 10.8 K/ul INTERFACE SYSTEM Comment: WBC Corrected for Nucleated RBC'S RBC 3.86(L) 4.20 - 5.40 Mil/ul INTERFACE SYSTEM HEMOGLOBIN 10.9(L) 12.0 - 16.0 g/dL INTERFACE SYSTEM HEMATOCRIT 33.8(L) 36.0 - 46.0 % INTERFACE SYSTEM MCV 87.6 84.0 - 103.0 Fl INTERFACE SYSTEM MCH 28.2 27.0 - 34.0 pg INTERFACE SYSTEM MCHC 32.2 30.0 - 35.0 g/dL INTERFACE SYSTEM RDW 15.3(H) 11.0 - 14.5 % INTERFACE SYSTEM PLATELETS 1,178(AA) 140 - 440 K/ul INTERFACE SYSTEM Comment: Potentially critical/toxic PLT CT called by SS_ to KESHAV_LAURENT, with verbal read back, at 02/10/07 15:36_. MPV 9.5 8.9 - 12.8 Fl INTERFACE SYSTEM NRBC 1 <=1 INTERFACE SYSTEM 02/10/2007 2:17 PM CDT Adeel Jenkins DO HEMATOLOGY ORDERABLES Edited INTERFACE SYSTEM Refer to clinic/hospital department documented in this encounter Visit Diagnoses Diagnosis Peritoneal abscess (CMS/HCC)- Primary Peritoneal abscess documented in this encounter Care Teams Dispatcher Service Chief Relationship Specialty Start Date End Date Charles Delgadillo MD [address] [place] [address] PCP - General Family Practice 09/05/10 documented as of this encounter
--- OUTSIDE RECORDS SUMMARY | 2025-09-18 01:34 | XMS_ITS | Encounter Summary ---
Author Organization [employer] [facility] Address [address] [place] [address] Care Team Providers Care Director Economic Name Role Phone Charles Delgadillo MD Primary Care Provider Encounter Details Date Type Department Care Team (Latest Contact Info) Description 12/30/1998 Outpatient Historical [facility] Gamaliel Lara MD NO ADDRESS ON FILE Other joint derangement, not elsewhere classified, lower leg (Primary Dx) Social History Tobacco Use Types Packs/Day Years Used Date Smoking Tobacco: Never Assessed Comments Unknown Sex and Gender Information Value Date Recorded Sex Assigned at Not on file Legal 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
--- OUTSIDE RECORDS SUMMARY | 2025-09-18 01:34 | XMS_ITS | Encounter Summary ---
Author Organization [facility] Address [address] [place] [address] Care Team Providers Care Supervisor Laboratory Animal Facility Name Role Phone Charles Delgadillo MD Primary Care Provider [phone] Encounter Details Date Type Department Care Team (Late st Contact Info) Description 03/31/2007 Outpatient Historical [facility] General and Trauma Surgery-[address] [place] [address] Andrew Richards MD [address] [facility] [address] [place] [address] Follow-Up Examination, Following Unspecified Surgery (Primary Dx) Social History Tobacco Use Types Packs/Day Years Used Date Smoking Tobacco: Never Assessed Comments Unknown Sex and Gender Information Value Date Recorded Sex Assigned at Not on file 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
--- OUTSIDE RECORDS SUMMARY | 2025-09-18 01:34 | XMS_ITS | Encounter Summary ---
Author Organization [facility] Address [address] [place] [address] Care Team Providers Care Filament Tester Name Role Phone Norman Caldera MD Primary Care Provider [phone] Encounter Details Date Type Department Care Team (Latest Contact Info) Description 08/22/2025 Results Follow-Up [facility] Family Medicine [address] [address] Norman Caldera MD [address] [place] [phone] HEMOGLOBIN A1C, COMPREHENSIVE METABOLIC PANEL, CBC WITH DIFFERENTIAL Social History Tobacco Use Types Packs/Day Years Used Date Smoking Tobacco: Never Passive Smoke Exposure: Never Smokeless Tobacco: Never Alcohol Use Standard Drinks/Week Comments No 0 (1 standard drink = 0.6 oz pur e alcohol) Financial Resource Strain Answer Date R ecorded How hard is it for you to pa y for the very basics like food, housing, medical care, and heating? Somewhat hard 12/20/2022 Food Insecurity Answer Date Recorded In the past 12 months, have you worried that your food would run out before you had money to buy more? Sometimes true 2022 In the past 12 months, did y ou run out of food and didn't have money to buy more? Sometimes true 12/20/2022 Transportation Needs Answer Date Record ed In the past 12 months, has l ack of transportation kept you from medical appointments or from getting medications? No 12/20/2022 Lack of Transportation (Non-Medical) Not on file 12/20/2022 Food Insecurity Answer Date Recorded Do you find you are eating l ess than you should because you can t pay for food? No 08/07/2025 Transportation Needs Answer Date Record ed Have you gone without health care because you didn t have a way to get there? Or worry about transportation for future doctor visits, forklift picker medication, etc.? No 2024 Housing Stability Answer Date Recorded Do you worry you won t have a steady place to sleep or struggle to pay rent or mortgage? No 08/07/2025 Utility Needs Answer Date Recorded Do you have difficulty payin g for utility costs (electric, water or gas bills)? No 08/07/2025 Medication Needs Answer Date Recorded Have you skipped taking medi cation due to cost or worry you can t afford new medications? No 08/07/2025 Feeling Safe Answer Date Recorded Are you in a relationship wi th someone who hurts you emotionally and/or physically? No 08/07/2025 Food Insecurity Answer Date Recorded Social/Environmental Concerns No concerns Transportation Needs Answer Date Record ed Social/Environmental Concerns No concerns Housing Stability Answer Date Recorded Social/Environmental Concerns No concerns Utility Needs Answer Date Recorded Social/Environmental Concerns No concerns Comments No Sex and Gender Information Value Date Recorded Sex Assigned at Not on file Legal Sex Female 2:09 AM SHELVING SUPERVISOR Gender Identity Not on file Sexual Orientation Not on file documented as of this encounter Plan of Treatment Upcoming Encounters Date Type Department Care Team (Late st Contact Info) Description 11/16/2025 11:40 AM SHELVING SUPERVISOR Office Visit [facility] Family Medicine [place] [address] [phone] Nomran Caldera MD [address] [phone] 02/01/2026 9:30 AM CDT Office Visit [facility] Gastroenterology- [place] [address] [place] [address] Deepthi Ray, SHEAR OPERATOR HELPER [address] [facility] [address] [place] [address] documented as of this encounter Goals Goal Patient Goal Type Associated Problems Recent Progress Patient-Stated? Author HYPERTENSIO N CARE PLAN GOAL Care Plan PALLAVI MYC HYPERTENSION CARE PLAN PROBLEM No Norman Caldera MD documented as of this encounter Visit Diagnoses Not on filedocumented in this encounter Additional Health Concerns Active Problems Noted Date Diagnosed Date PALLAVI MYC HYPERTENSION CARE PLAN PROBLEM 4 documented as of this encounter Care Teams Filament Tester Relationship Specialty Start Date End Date Norman Caldera MD [address] [place] [phone] PCP - General Family Practice 09/06/23 documented as of this encounter
--- OUTSIDE RECORDS SUMMARY | 2025-09-18 01:34 | XMS_ITS | Encounter Summary ---
Author Organization [facility] Address [address] [place] [address] Care Team Providers Care Compressor Assembler Name Role Phone Charles Delgadillo MD Primary Care Provider [phone] Encounter Details Date Type Department Care Team (Late st Contact Info) Description 09/30/2008 Outpatient Historical [facility] Operating Room [address] [place] [address] Fernando Jay, Paul Swain MD [address] [place] [phone] Social History Tobacco Use Types Packs/Day Years Used Date Smoking Tobacco: Never Alcohol Use Standard Drinks/Week Comments No 0 (1 standard drink = 0.6 oz pur e alcohol) Comments No Sex and Gender Information Value Date Recorded Sex Assigned at Not on file 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
--- OUTSIDE RECORDS SUMMARY | 2025-09-18 01:34 | XMS_ITS | Encounter Summary ---
Author Organization [facility] Address [address] [place] [address] Care Team Providers Care Systems Consultant Name Role Phone Charles Delgadillo MD Primary Care Provider [phone] Encounter Details Date Type Department Care Team (Latest Contact Info) Description 12/31/2007 Outpatient [facility] [place] [address] [facility] [address] [place] [address] Antonio Lopez MD [address] [place] [address] Personal History of Venous Thrombosis and Embolism; Disturbance of Skin Sensation; Esophageal Reflux; Unspecified Arthropathy, Site Unspecified; Unspecified Asthma; Depressive Disorder, not Elsewhere Classified; Irritable Bowel Syndrome; Unspecified Essential Hypertension; Unspecified Constipation; Personal History of Other Diseases of Circulatory System; Personal History of Allergy to Analgesic Agent; Personal History of Allergy to Sulfonamides Social History Tobacco Use Types Packs/Day Years Used Date Smoking Tobacco: Never Assessed Comments Unknown Sex and Gender Information Value Date Recorded Sex Assigned at Not on file 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 Findings: Comparison study is dated 10/21/07. There appears to be an artificial disc spacer at L4-L5 unchanged in appearance. There is normal lumbar lordosis. There is mild facet arthritis in the lower lumbar spine. The vertebral body heights and disc spaces are largely preserved at other lumbar levels. The sacroiliac joints appear to be within normal limits. There is an inferior vena cava filter present. Summary: Unchanged artificial disc at L4-L5. Mild facet arthritis at the lower lumbar spine. - Dictated By: Judson Rodriguez Jr., M.D. Electronically Signed By: Judson Rodriguez Jr., M.D.MD Date Signed: 01/01/08 SDM Procedure Note Judson Rodriguez Jr. - 01/01/2008 Exam: Spine - Lumbar Date/Time of Exam: Jan 01, 2008 8:22:53 AM History: Low back pain. Findings: Comparison study is dated 10/21/07. There appears to be an artificial disc spacer at L4-L5 unchanged inappearance. There is normal lumbar lordosis. There is mild facet arthritis in the lower lumbar spine. Thevertebral body heights and disc spaces are largely preserved at other lumbar levels. The sacroiliac jointsappear to be within normal limits. There is an inferior vena cava filter present. Summary: Unchanged artificial disc at L4-L5. Mild facet arthritis at thelower lumbar spine. - Dictated By: Judson Rodriguez Jr., M.D. Electronically Signed By: Judson Rodriguez Jr., M.D.MD Date Signed: 01/01/08 SDM Antonio Lopez MD DIAGNOSTIC IMAGING ORDERABLES Final Result documented in this encounter Visit Diagnoses Diagnosis Personal history of venous thrombosis and embolism Disturbance of skin sensation Esophageal reflux Arthropathy, unspecified, site unspecified Unspecified asthma(493.90) Unspecified asthma Depressive disorder, not elsewhere classified Irritable bowel syndrome Unspecified essential hypertension Unspecified constipation Personal history of other diseases of circulatory system Personal history of allergy to analgesic agent Personal history of allergy to sulfonamides documented in this encounter Care Teams Systems Consultant Relationship Specialty Start Date End Date Charles Delgadillo MD [address] [place] [phone] PCP - General Family Practice 09/05/10 documented as of this encounter
--- OUTSIDE RECORDS SUMMARY | 2025-09-18 01:34 | XMS_ITS | Encounter Summary ---
Author Organization [facility] Address [address] [place] [address] Care Team Providers Care Oracle Adf Developer Name Role Phone Charles Delgadillo MD Primary Care Provider [phone] Encounter Details Date Type Department Care Team (Latest Contact Info) Description 04/16/2007 Outpatient Historical [facility] [address] [place] [address] Danial Hill, PAEdelC NO ADDRESS ON FILE Degeneration of Lumbar or Lumbosacral Intervertebral Disc (Primary Dx); Pain in Joint, Ankle and Foot; Stiffness of Joint, not Elsewhere Classified, Lower Leg Social History Tobacco Use Types Packs/Day Years Used Date Smoking Tobacco: Never Assessed Comments Unknown Sex and Gender Information Value Date Recorded Sex Assigned at Not on file 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
--- OUTSIDE RECORDS SUMMARY | 2025-09-18 01:34 | XMS_ITS | Encounter Summary ---
[facility] Organization [facility] Address [address] [place] [address] Care Team Providers Care Quality Assurance Inspector Name Role Phone Charles Delgadillo MD Primary Care Provider [phone] Encounter Details Date Type Department Care Team (Late st Contact Info) Description 01/12/2007 Inpatient Historical HIS IN BED Adeel Jenkins S, DO [address] [place] [address] Poisoning by Anticoagulants (Primary Dx) Social History Tobacco Use Types Packs/Day Years Used Date Smoking Tobacco: Never Assessed Comments Unknown Sex and Gender Information Value Date Recorded Sex Assigned at Not on file Legal Sex 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 Gender Identity Not on file Sexual Orientation Not on file documented as of this encounter Plan of Treatment Not on file documented as of this encounter Procedures Procedure Name Priority Date/Time Associated Diagnosis Comments POC GLUCOSE Routine 01/20/2007 11:39 AM CDT DIFFERENTIAL, MANUAL Routine 01/20/2007 3:10 AM CDT CBC WITH DIFFERENTIAL Routine 01/20/2007 3:10 AM CDT BASIC METABOLIC PANEL Routine 01/20/2007 3:10 AM CDT POC GLUCOSE Routine 01/20/2007 12:26 AM CDT POC GLUCOSE Routine 01/19/2007 5:45 PM CDT POC GLUCOSE Routine 01/19/2007 11:42 AM CDT POC GLUCOSE Routine 01/19/2007 5:43 AM CDT POC GLUCOSE Routine 01/18/2007 11:59 PM CDT POC GLUCOSE Routine 01/18/2007 7:06 PM CDT POC GLUCOSE Routine 01/18/2007 1:12 PM CDT POC GLUCOSE Routine 01/18/2007 5:48 AM CDT DIFFERENTIAL, MANUAL Routine 01/18/2007 4:56 AM CDT CBC WITH DIFFERENTIAL Routine 01/18/2007 4:56 AM CDT BASIC METABOLIC PANEL Routine 01/18/2007 4:56 AM CDT POC GLUCOSE Routine 01/18/2007 1:06 AM CDT POC GLUCOSE Routine 01/17/2007 5:41 PM CDT POC GLUCOSE Routine 01/17/2007 11:44 AM CDT POC GLUCOSE Routine 01/17/2007 5:40 AM CDT DIFFERENTIAL, MANUAL Routine 01/17/2007 2:53 AM CDT CBC WITH DIFFERENTIAL Routine 01/17/2007 2:53 AM CDT BASIC METABOLIC PANEL Routine 01/17/2007 2:53 AM CDT POC GLUCOSE Routine 01/16/2007 11:40 PM CDT POC GLUCOSE Routine 01/16/2007 5:53 PM CDT POC GLUCOSE Routine 01/16/2007 11:48 AM CDT DIFFERENTIAL, MANUAL Routine 01/16/2007 2:48 AM CDT CBC WITH DIFFERENTIAL Routine 01/16/2007 2:48 AM CDT BASIC METABOLIC PANEL Routine 01/16/2007 2:48 AM CDT POC GLUCOSE Routine 01/16/2007 12:51 AM CDT POC GLUCOSE Routine 01/15/2007 5:20 PM CDT HEMOGLOBIN AND HEMATOCRIT Routine 01/15/2007 2:02 PM CDT BRAIN NATRIURETIC PEPTIDE, BNP OR PROBNP Routine 01/15/2007 2:02 PM CDT BASIC METABOLIC PANEL Routine 01/15/2007 2:02 PM CDT POC GLUCOSE Routine 01/15/2007 12:39 PM CDT POC BLOOD GAS, LYTES AND H+H Routine 01/15/2007 9:47 AM CDT POC BLOOD GAS, LYTES AND H+H Routine 01/15/2007 7:08 AM CDT CBC WITH DIFFERENTIAL Routine 01/15/2007 3:16 AM CDT PHOSPHORUS Routine 01/15/2007 3:16 AM CDT MAGNESIUM LEVEL Routine 01/15/2007 3:16 AM CDT BASIC METABOLIC PANEL Routine 01/15/2007 3:16 AM CDT POC GLUCOSE Routine 01/14/2007 11:30 PM CDT HEMOGLOBIN AND HEMATOCRIT Routine 01/14/2007 9:06 PM CDT POTASSIUM LEVEL Routine 01/14/2007 9:06 PM CDT POC GLUCOSE Routine 01/14/2007 5:48 PM CDT HEMOGLOBIN AND HEMATOCRIT Routine 01/14/2007 3:09 PM CDT BASIC METABOLIC PANEL Routine 01/14/2007 3:09 PM CDT POC GLUCOSE Routine 01/14/2007 12:06 PM CDT POC BLOOD GAS, LYTES AND H+H Routine 01/14/2007 11:57 AM CDT POC BLOOD GAS, LYTES AND H+H Routine 01/14/2007 4:55 AM CDT POC GLUCOSE Routine 01/14/2007 4:52 AM CDT CBC WITH DIFFERENTIAL Routine 01/14/2007 3:07 AM CDT PROTIME-INR Routine 01/14/2007 3:07 AM CDT PHOSPHORUS Routine 01/14/2007 3:07 AM CDT MAGNESIUM LEVEL Routine 01/14/2007 3:07 AM CDT BASIC METABOLIC PANEL Routine 01/14/2007 3:07 AM CDT POC GLUCOSE Routine 01/13/2007 11:18 PM CDT PROTIME-INR Routine 01/13/2007 6:07 PM CDT CBC WITHOUT DIFFERENTIAL Routine 01/13/2007 6:07 PM CDT POC GLUCOSE Routine 01/13/2007 5:22 PM CDT POC BLOOD GAS, LYTES AND H+H Routine 01/13/2007 2:43 PM CDT PROTIME-INR Routine 01/13/2007 2:32 PM CDT CBC WITHOUT DIFFERENTIAL Routine 01/13/2007 2:32 PM CDT POC GLUCOSE Routine 01/13/2007 1:16 PM CDT HEMOGLOBIN AND HEMATOCRIT Routine 01/13/2007 7:45 AM CDT POC BLOOD GAS, LYTES AND H+H Routine 01/13/2007 5:17 AM CDT BASIC METABOLIC PANEL PLUS Routine 01/13/2007 3:40 AM CDT CBC WITH DIFFERENTIAL Routine 01/13/2007 3:40 AM CDT PROTIME-INR Routine 01/13/2007 3:40 AM CDT BASIC METABOLIC PANEL Routine 01/13/2007 3:40 AM CDT POC BLOOD GAS AND LACTIC ACID Routine 01/13/2007 1:32 AM CDT POC BLOOD GAS, LYTES AND H+H Routine 01/13/2007 1:26 AM CDT CK TOTAL, RELATIVE INDEX Routine 01/13/2007 12:30 AM CDT HEMOGLOBIN AND HEMATOCRIT Routine 01/13/2007 12:30 AM CDT CARDIAC ENZYMES Routine 01/13/2007 12:30 AM CDT PROTIME-INR Routine 01/13/2007 12:30 AM CDT PLATELET COUNT Routine 01/13/2007 12:30 AM CDT CK Routine 01/13/2007 12:30 AM CDT DIFFERENTIAL, MANUAL Routine 01/12/2007 10:49 PM CDT CBC WITH DIFFERENTIAL Routine 01/12/2007 10:49 PM CDT POC BLOOD GAS, LYTES AND H+H Routine 01/12/2007 7:22 PM CDT CK TOTAL, RELATIVE INDEX Routine 01/12/2007 6:55 PM CDT CARDIAC ENZYMES Routine 01/12/2007 6:55 PM CDT CBC WITH DIFFERENTIAL Routine 01/12/2007 6:55 PM CDT PTT Routine 01/12/2007 6:55 PM CDT PROTIME-INR Routine 01/12/2007 6:55 PM CDT CK Routine 01/12/2007 6:55 PM CDT BASIC METABOLIC PANEL Routine 01/12/2007 6:55 PM CDT POC BLOOD GAS, LYTES AND H+H Routine 01/12/2007 5:50 PM CDT PT AND APTT Routine 01/12/2007 5:29 PM CDT POC BLOOD GAS, LYTES AND H+H Routine 01/12/2007 5:20 PM CDT CBC WITHOUT DIFFERENTIAL Routine 01/12/2007 4:38 PM CDT URINALYSIS MICROSCOPY ONLY Routine 01/12/2007 4:03 PM CDT URINALYSIS W/REFLEX MICROSCOPIC Routine 01/12/2007 4:03 PM CDT PTT Routine 01/12/2007 3:58 PM CDT PROTIME-INR Routine 01/12/2007 3:58 PM CDT BASIC METABOLIC PANEL Routine 01/12/2007 3:44 PM CDT DIFFERENTIAL, MANUAL Routine 01/12/2007 2:34 PM CDT PT AND APTT Routine 01/12/2007 2:34 PM CDT CBC WITH DIFFERENTIAL Routine 01/12/2007 2:[address] HEAD WO CONTRAST Routine 01/12/2007 1 1:26 AM CDT XR FOOT 3+ VW LEFT Routine 01/12/2007 11 :[address] CHEST ABDOMEN PELVIS W CONT Routine 01/12/2007 11:26 AM CDT XR CHEST PA OR AP 1 VW Routine 7 11:26 AM CDT XR CHEST PA OR AP 1 VW Routine 7 11:26 AM CDT XR CHEST PA OR AP 1 VW Routine 7 11:26 AM CDT XR LUMBAR SPINE 1 VW Routine 01/12/2007 11:26 AM CDT CARDIAC ENZYMES Routine 01/12/2007 11:07 AM CDT COMPREHENSIVE METABOLIC PANEL Routine 01/12/2007 11:07 AM CDT PT AND APTT Routine 01/12/2007 11:03 AM CDT CBC WITH DIFFERENTIAL Routine 01/12/2007 11:03 AM CDT POC CREATININE Routine 01/12/2007 11:01 AM CDT POC ELECTROLYTES/BMP Routine 01/12/2007 10:57 AM CDT documented in this encounter Results * (ABNORMAL) POC GLUCOSE (01/20/2007 11:39 AM CDT) GLUCOSE POC 102(H) 60 - 100 mg/dL INTERFACE SYSTEM 01/20/2007 11:3 9 AM CDT us Adeel Jenkins DO POINT OF CARE TESTING Edited Performing Organization Address [facility] de Phone Number INTERFACE SYSTEM Refer to clinic/hospital department * (ABNORMAL) DIFFERENTIAL, MANUAL (01/20/2007 3:10 AM CDT) NEUTROPHILS, SEG 61 36 - 66 % INT ERFACE SYSTEM BANDS 1 0 - 6 % INTERFACE SYSTEM LYMPHOCYTES 16(L) 24 - 44 % INTERFAC E SYSTEM MONOCYTE 7 4 - 10 % INTERFACE SYSTEM EOSINOPHILS 8(H) 0 - 3 % INTERFAC E SYSTEM METAMYELOCYTE 2(H) 0 - 1 % INTERF KRAIG SYSTEM MYELOCYTES 5(H) <=1 % INTERFACE SYSTEM PLATELET EST. Increased (A) Normal INTERFACE SYSTEM RBC MORPHOLOGY Abnormal( A) Normal INTERFACE SYSTEM ANISOCYTOSIS 1+(A) None Seen INTERFA CE SYSTEM POIKILOCYTES 1+(A) None Seen INTERFA CE SYSTEM POLYCHROMASIA Present(A ) None Seen INTERFACE SYSTEM TOXIC GRANULATION Present(A ) None Seen INTERFACE SYSTEM HYPOCHROMIA 2+(A) None Seen INTERFAC E SYSTEM 01/20/2007 3:10 AM CDT us Adeel Jenkins DO HEMATOLOGY ORDERABLES COM Edit ed Performing Organization Address [facility] de Phone Number INTERFACE SYSTEM Refer to clinic/hospital department * BASIC METABOLIC PANEL (01/20/2007 3:10 AM CDT) GLUCOSE 106 70 - 110 mg/dL INTERFACE SYSTEM BUN 14 7 - 17 mg/dL INTERFACE SYSTEM CREATININE 0.7 0.7 - 1.2 mg/dL INTERFACE SYSTEM SODIUM 137 136 - 145 mEq/L INTERFACE SYSTEM POTASSIUM 3.8 3.5 - 5.0 mEq/L INTERFACE SYSTEM CHLORIDE 104 95 - 110 mEq/L INTERFACE SYSTEM CO2 28 22 - 32 mmol/l INTERFACE SYSTEM CALCIUM 9.0 8.4 - 10.5 mg/dL INTERFACE SYSTEM ANION GAP 9 9 - 20 mEq/L INTERFACE SYSTEM OSMOLALITY, CALCULATED 283 275 - 295 mOsm/Kg INTERFACE SYSTEM 01/20/2007 3:10 AM CDT us Adeel Jenkins DO CHEMISTRY ORDERABLES Edited Performing Organization Address [facility] Phone Number INTERFACE SYSTEM Refer to clinic/hospital department * (ABNORMAL) CBC WITH DIFFERENTIAL (01/20/2007 3:10 AM CDT) WBC 22.4(H) 4.8 - 10.8 K/ul INTERFACE SYSTEM Comment: WBC Corrected for Nucleated RBC'S RBC 3.15(L) 4.20 - 5.40 Mil/ul INTERFACE SYSTEM HEMOGLOBIN 9.0(L) 12.0 - 16.0 g/dL INTERFACE SYSTEM HEMATOCRIT 28.6(L) 36.0 - 46.0 % INTERFACE SYSTEM MCV 90.8 84.0 - 103.0 Fl INTERFACE SYSTEM MCH 28.6 27.0 - 34.0 pg INTERFACE SYSTEM MCHC 31.5 30.0 - 35.0 g/dL INTERFACE SYSTEM RDW 15.2(H) 11.0 - 14.5 % INTERFACE SYSTEM PLATELETS 507(H) 140 - 440 K/ul INTERFACE SYSTEM MPV 10.3 8.9 - 12.8 Fl INTERFACE SYSTEM NRBC 3(H) <=1 INTERFACE SYSTEM 01/20/2007 3:10 AM CDT us Adeel Jenkins DO HEMATOLOGY ORDERABLES Edited Performing Organization Address [facility] Phone Number INTERFACE SYSTEM Refer to clinic/hospital department * (ABNORMAL) POC GLUCOSE (01/20/2007 12:26 AM CDT) GLUCOSE POC 110(H) 60 - 100 mg/dL INTERFACE SYSTEM 01/20/2007 12:2 6 AM CDT us Adeel Jenkins DO POINT OF CARE TESTING Edited Performing Organization Address City/[facility] Phone Number INTERFACE SYSTEM Refer to clinic/hospital department * (ABNORMAL) POC GLUCOSE (01/19/2007 5:45 PM CDT) GLUCOSE POC 103(H) 60 - 100 mg/dL INTERFACE SYSTEM 01/19/2007 5:45 PM CDT us Adeel Jenkins DO POINT OF CARE TESTING Edited Performing Organization Address City/[facility] Co de Phone Number INTERFACE SYSTEM Refer to clinic/hospital department * POC GLUCOSE (01/19/2007 11:42 AM CDT) GLUCOSE POC 100 60 - 100 mg/dL INTERFACE SYSTEM 01/19/2007 11:4 2 AM CDT us Adeel Jenkins DO POINT OF CARE TESTING Edited Performing Organization Address [facility] Phone Number INTERFACE SYSTEM Refer to clinic/hospital department * (ABNORMAL) POC GLUCOSE (01/19/2007 5:43 AM CDT) GLUCOSE POC 110(H) 60 - 100 mg/dL INTERFACE SYSTEM 01/19/2007 5:43 AM CDT us Adeel Jenkins DO POINT OF CARE TESTING Edited Performing Organization Address [facility] Phone Number INTERFACE SYSTEM Refer to clinic/hospital department * (ABNORMAL) POC GLUCOSE (01/18/2007 11:59 PM CDT) GLUCOSE POC 130(H) 60 - 100 mg/dL INTERFACE SYSTEM COMMENT POC Follow Protocol INTERFACE SYSTEM 01/18/2007 11:5 9 PM CDT [employer] Adeel Jenkins DO POINT OF CARE TESTING Edited Performing Organization Address [facility] de Phone Number INTERFACE SYSTEM Refer to clinic/hospital department * (ABNORMAL) POC GLUCOSE (01/18/2007 7:06 PM CDT) GLUCOSE POC 135(H) 60 - 100 mg/dL INTERFACE SYSTEM COMMENT POC Follow Protocol INTERFACE SYSTEM 01/18/2007 7:06 PM CDT us Adeel Jenkins DO POINT OF CARE TESTING Edited Performing Organization Address [facility] de Phone Number INTERFACE SYSTEM Refer to clinic/hospital department * (ABNORMAL) POC GLUCOSE (01/18/2007 1:12 PM CDT) GLUCOSE POC 128(H) 60 - 100 mg/dL INTERFACE SYSTEM 01/18/2007 1:12 PM CDT Adeel Jenkins DO POINT OF CARE TESTING Edited Performing Organization Address [facility] de Phone Number INTERFACE SYSTEM Refer to clinic/hospital department * (ABNORMAL) POC GLUCOSE (01/18/2007 5:48 AM CDT) GLUCOSE POC 115(H) 60 - 100 mg/dL INTERFACE SYSTEM 01/18/2007 5:48 AM CDT us Adeel Jenkins DO POINT OF CARE TESTING Edited Performing Organization Address [facility] de Phone Number INTERFACE SYSTEM Refer to clinic/hospital department * (ABNORMAL) DIFFERENTIAL, MANUAL (01/18/2007 4:56 AM CDT) NEUTROPHILS, SEG 52 36 - 66 % INT ERFACE SYSTEM BANDS 3 0 - 6 % INTERFACE SYSTEM LYMPHOCYTES 16(L) 24 - 44 % INTERFAC E SYSTEM ATYPICAL LYMPHOCYTE 3(H) <=0 % INTERFACE SYSTEM MONOCYTE 6 4 - 10 % INTERFACE SYSTEM EOSINOPHILS 8(H) 0 - 3 % INTERFAC E SYSTEM BASOPHILS 1 0 - 1 % INTERFACE SYSTEM METAMYELOCYTE 2(H) 0 - 1 % INTERF KRAIG SYSTEM MYELOCYTES 9(H) <=1 % INTERFACE SYSTEM PLATELET EST. Normal Normal INTERF KRAIG SYSTEM RBC MORPHOLOGY Abnormal(A ) Normal INTERFACE SYSTEM ANISOCYTOSIS 1+(A) None Seen INTERFA CE SYSTEM POIKILOCYTES 1+(A) None Seen INTERFA CE SYSTEM POLYCHROMASIA 1+(A) None Seen INTERF KRAIG SYSTEM TOXIC GRANULATION 1+(A) None Seen IN TERFACE SYSTEM VACUOLATED NEUTROPHILS Few(A) None Seen INTERFACE SYSTEM 01/18/2007 4:56 AM CDT Adeel Jenkins HEMATOLOGY ORDERABLES COM Edit ed Performing Organization Address [facility] Phone Number INTERFACE SYSTEM Refer to clinic/hospital department * (ABNORMAL) CBC WITH DIFFERENTIAL (01/18/2007 4:56 AM CDT) WBC 27.8(H) 4.8 - 10.8 K/ul INTERFACE SYSTEM Comment: WBC Corrected for Nucleated RBC'S RBC 3.21(L) 4.20 - 5.40 Mil/ul INTERFACE SYSTEM HEMOGLOBIN 9.3(L) 12.0 - 16.0 g/dL INTERFACE SYSTEM HEMATOCRIT 28.7(L) 36.0 - 46.0 % INTERFACE SYSTEM MCV 89.4 84.0 - 103.0 Fl INTERFACE SYSTEM MCH 29.0 27.0 - 34.0 pg INTERFACE SYSTEM MCHC 32.4 30.0 - 35.0 g/dL INTERFACE SYSTEM RDW 14.5 11.0 - 14.5 % INTERFACE SYSTEM PLATELETS 286 140 - 440 K/ul INTERFACE SYSTEM MPV 10.3 8.9 - 12.8 Fl INTERFACE SYSTEM NRBC 2(H) <=1 INTERFACE SYSTEM 01/18/2007 4:56 AM CDT Adeel Jenkins HEMATOLOGY ORDERABLES Edited Performing Organization Address [facility] Phone Number INTERFACE SYSTEM Refer to clinic/hospital department * (ABNORMAL) BASIC METABOLIC PANEL (01/18/2007 4:56 AM CDT) GLUCOSE 121(H) 70 - 110 mg/dL INTERFACE SYSTEM BUN 16 7 - 17 mg/dL INTERFACE SYSTEM CREATININE 0.7 0.7 - 1.2 mg/dL INTERFACE SYSTEM SODIUM 136 136 - 145 mEq/L INTERFACE SYSTEM POTASSIUM 3.7 3.5 - 5.0 mEq/L INTERFACE SYSTEM CHLORIDE 100 95 - 110 mEq/L INTERFACE SYSTEM CO2 27 22 - 32 mmol/l INTERFACE SYSTEM CALCIUM 8.8 8.4 - 10.5 mg/dL INTERFACE SYSTEM ANION GAP 13 9 - 20 mEq/L INTERFACE SYSTEM OSMOLALITY, CALCULATED 282 275 - 295 mOsm/Kg INTERFACE SYSTEM 01/18/2007 4:56 AM CDT us Adeel Jenkins DO CHEMISTRY ORDERABLES Edited Performing Organization Address [facility] Phone Number INTERFACE SYSTEM Refer to clinic/hospital department * (ABNORMAL) POC GLUCOSE (01/18/2007 1:06 AM CDT) GLUCOSE POC 123(H) 60 - 100 mg/dL INTERFACE SYSTEM 01/18/2007 1:06 AM CDT us Adeel Jenkins DO POINT OF CARE TESTING Edited Performing Organization Address [facility] Phone Number INTERFACE SYSTEM Refer to clinic/hospital department * (ABNORMAL) POC GLUCOSE (01/17/2007 5:41 PM CDT) GLUCOSE POC 118(H) 60 - 100 mg/dL INTERFACE SYSTEM 01/17/2007 5:41 PM CDT us Adeel Jenkins DO POINT OF CARE TESTING Edited Performing Organization Address [facility] Phone Number INTERFACE SYSTEM Refer to clinic/hospital department * (ABNORMAL) POC GLUCOSE (01/17/2007 11:44 AM CDT) GLUCOSE POC 112(H) 60 - 100 mg/dL INTERFACE SYSTEM 01/17/2007 11:4 4 AM CDT us Adeel Jenkins DO POINT OF CARE TESTING Edited Performing Organization Address [facility] Phone Number INTERFACE SYSTEM Refer to clinic/hospital department * (ABNORMAL) POC GLUCOSE (01/17/2007 5:40 AM CDT) GLUCOSE POC 125(H) 60 - 100 mg/dL INTERFACE SYSTEM 01/17/2007 5:40 AM CDT us Adeel Jenkins DO POINT OF CARE TESTING Edited Performing Organization Address [facility] de Phone Number INTERFACE SYSTEM Refer to clinic/hospital department * (ABNORMAL) BASIC METABOLIC PANEL (01/17/2007 2:53 AM CDT) GLUCOSE 118(H) 70 - 110 mg/dL INTERFACE SYSTEM BUN 16 7 - 17 mg/dL INTERFACE SYSTEM CREATININE 0.7 0.7 - 1.2 mg/dL INTERFACE SYSTEM SODIUM 135(L) 136 - 145 mEq/L INTERFACE SYSTEM POTASSIUM 3.8 3.5 - 5.0 mEq/L INTERFACE SYSTEM CHLORIDE 100 95 - 110 mEq/L INTERFACE SYSTEM CO2 32 22 - 32 mmol/l INTERFACE SYSTEM CALCIUM 8.9 8.4 - 10.5 mg/dL INTERFACE SYSTEM ANION GAP 7(L) 9 - 20 mEq/L INTERFACE SYSTEM OSMOLALITY, CALCULATED 280 275 - 295 mOsm/Kg INTERFACE SYSTEM 01/17/2007 2:53 AM CDT [employer] DO CHEMISTRY ORDERABLES Edited Performing Organization Address [facility] de Phone Number INTERFACE SYSTEM Refer to clinic/hospital department * (ABNORMAL) DIFFERENTIAL, MANUAL (01/17/2007 2:53 AM CDT) Pathologist [facility] NEUTROPHILS, SEG 54 36 - 66 % INT ERFACE SYSTEM BANDS 8(H) 0 - 6 % INTERFACE SYSTEM LYMPHOCYTES 12(L) 24 - 44 % INTERFAC E SYSTEM MONOCYTE 13(H) 4 - 10 % INTERFACE SYSTEM EOSINOPHILS 9(H) 0 - 3 % INTERFAC E SYSTEM BASOPHILS 1 0 - 1 % INTERFACE SYSTEM METAMYELOCYTE 1 0 - 1 % INTERF KRAIG SYSTEM MYELOCYTES 2(H) <=1 % INTERFACE SYSTEM PLATELET EST. Normal Normal INTERF KRAIG SYSTEM RBC MORPHOLOGY Abnormal(A ) Normal INTERFACE SYSTEM ANISOCYTOSIS 2+(A) None Seen INTERFA CE SYSTEM POIKILOCYTES 2+(A) None Seen INTERFA CE SYSTEM VACUOLATED NEUTROPHILS Few(A) None Seen INTERFACE SYSTEM HYPOCHROMIA 1+(A) None Seen INTERFAC E SYSTEM 01/17/2007 2:53 AM CDT [employer] DO HEMATOLOGY ORDERABLES COM Edit ed Performing Organization Address [facility] Co de Phone Number INTERFACE SYSTEM Refer to clinic/hospital department * (ABNORMAL) CBC WITH DIFFERENTIAL (01/17/2007 2:53 AM CDT) WBC 15.3(H) 4.8 - 10.8 K/ul INTERFACE SYSTEM Comment: WBC Corrected for Nucleated RBC'S RBC 3.12(L) 4.20 - 5.40 Mil/ul INTERFACE SYSTEM HEMOGLOBIN 9.1(L) 12.0 - 16.0 g/dL INTERFACE SYSTEM HEMATOCRIT 27.9(L) 36.0 - 46.0 % INTERFACE SYSTEM MCV 89.4 84.0 - 103.0 Fl INTERFACE SYSTEM MCH 29.2 27.0 - 34.0 pg INTERFACE SYSTEM MCHC 32.6 30.0 - 35.0 g/dL INTERFACE SYSTEM RDW 14.4 11.0 - 14.5 % INTERFACE SYSTEM PLATELETS 256 140 - 440 K/ul INTERFACE SYSTEM MPV 10.0 8.9 - 12.8 Fl INTERFACE SYSTEM NRBC 24(H) <=1 INTERFACE SYSTEM 01/17/2007 2:53 AM CDT us Adeel Jenkins DO HEMATOLOGY ORDERABLES Edited Performing Organization Address [facility] Phone Number INTERFACE SYSTEM Refer to clinic/hospital department * (ABNORMAL) POC GLUCOSE (01/16/2007 11:40 PM CDT) GLUCOSE POC 134(H) 60 - 100 mg/dL INTERFACE SYSTEM 01/16/2007 11:4 0 PM CDT us Adeel Jenkins DO POINT OF CARE TESTING Edited Performing Organization Address City/[facility] de Phone Number INTERFACE SYSTEM Refer to clinic/hospital department * (ABNORMAL) POC GLUCOSE (01/16/2007 5:53 PM CDT) GLUCOSE POC 101(H) 60 - 100 mg/dL INTERFACE SYSTEM 01/16/2007 5:53 PM CDT us Adeel Jenkins DO POINT OF CARE TESTING Edited Performing Organization Address City/[facility] de Phone Number INTERFACE SYSTEM Refer to clinic/hospital department * (ABNORMAL) POC GLUCOSE (01/16/2007 11:48 AM CDT) GLUCOSE POC 136(H) 60 - 100 mg/dL INTERFACE SYSTEM 01/16/2007 11:4 8 AM CDT Adeel Jenkins DO POINT OF CARE TESTING Edited Performing Organization Address [facility] Phone Number INTERFACE SYSTEM Refer to clinic/hospital department * (ABNORMAL) BASIC METABOLIC PANEL (01/16/2007 2:48 AM CDT) GLUCOSE 121(H) 70 - 110 mg/dL INTERFACE SYSTEM BUN 20(H) 7 - 17 mg/dL INTERFACE SYSTEM CREATININE 0.9 0.7 - 1.2 mg/dL INTERFACE SYSTEM SODIUM 137 136 - 145 mEq/L INTERFACE SYSTEM POTASSIUM 3.2(L) 3.5 - 5.0 mEq/L INTERFACE SYSTEM CHLORIDE 95 95 - 110 mEq/L INTERFACE SYSTEM CO2 33(H) 22 - 32 mmol/l INTERFACE SYSTEM CALCIUM 8.8 8.4 - 10.5 mg/dL INTERFACE SYSTEM ANION GAP 12 9 - 20 mEq/L INTERFACE SYSTEM OSMOLALITY, CALCULATED 285 275 - 295 mOsm/Kg INTERFACE SYSTEM 01/16/2007 2:48 AM CDT Adeel Jenkins DO CHEMISTRY ORDERABLES Edited Performing Organization Address [facility] Phone Number INTERFACE SYSTEM Refer to clinic/hospital department * (ABNORMAL) DIFFERENTIAL, MANUAL (01/16/2007 2:48 AM CDT) NEUTROPHILS, SEG 60 36 - 66 % INT ERFACE SYSTEM BANDS 5 0 - 6 % INTERFACE SYSTEM LYMPHOCYTES 9(L) 24 - 44 % INTERFAC E SYSTEM MONOCYTE 14(H) 4 - 10 % INTERFACE SYSTEM EOSINOPHILS 10(H) 0 - 3 % INTERFAC E SYSTEM BASOPHILS 1 0 - 1 % INTERFACE SYSTEM PROMYELOCYTE 1 <=1 % INTERFA CE SYSTEM PLATELET EST. Normal Normal INTERF KRAIG SYSTEM RBC MORPHOLOGY Abnormal(A ) Normal INTERFACE SYSTEM ANISOCYTOSIS 2+(A) None Seen INTERFA CE SYSTEM POIKILOCYTES 1+(A) None Seen INTERFA CE SYSTEM POLYCHROMASIA 2+(A) None Seen INTERF KRAIG SYSTEM HYPOCHROMIA 1+(A) None Seen INTERFAC E SYSTEM 01/16/2007 2:48 AM CDT Adeel Jenkins DO HEMATOLOGY ORDERABLES COM Edit ed INTERFACE SYSTEM Refer to clinic/hospital department * (ABNORMAL) CBC WITH DIFFERENTIAL (01/16/2007 2:48 AM CDT) WBC 14.9(H) 4.8 - 10.8 K/ul INTERFACE SYSTEM Comment: WBC Corrected for Nucleated RBC'S RBC 3.15(L) 4.20 - 5.40 Mil/ul INTERFACE SYSTEM HEMOGLOBIN 9.1(L) 12.0 - 16.0 g/dL INTERFACE SYSTEM HEMATOCRIT 28.2(L) 36.0 - 46.0 % INTERFACE SYSTEM MCV 89.5 84.0 - 103.0 Fl INTERFACE SYSTEM MCH 28.9 27.0 - 34.0 pg INTERFACE SYSTEM MCHC 32.3 30.0 - 35.0 g/dL INTERFACE SYSTEM RDW 15.0(H) 11.0 - 14.5 % INTERFACE SYSTEM PLATELETS 244 140 - 440 K/ul INTERFACE SYSTEM MPV 10.1 8.9 - 12.8 Fl INTERFACE SYSTEM NRBC 7(H) <=1 INTERFACE SYSTEM 01/16/2007 2:48 AM CDT Adeel Esvin Jenkins DO HEMATOLOGY ORDERABLES Edited Performing Organization Address City/[facility]/ZIP Co de Phone Number INTERFACE SYSTEM Refer to clinic/hospital department * (ABNORMAL) POC GLUCOSE (01/16/2007 12:51 AM CDT) GLUCOSE POC 103(H) 60 - 100 mg/dL INTERFACE SYSTEM 01/16/2007 12:5 1 AM CDT us Denis Esvin Jenkins DO POINT OF CARE TESTING Edited INTERFACE SYSTEM Refer to clinic/hospital department * (ABNORMAL) POC GLUCOSE (01/15/2007 5:20 PM CDT) GLUCOSE POC 110(H) 60 - 100 mg/dL INTERFACE SYSTEM 01/15/2007 5:20 PM CDT Adeel Jenkins DO POINT OF CARE TESTING Edited Performing Organization Address [facility] Phone Number INTERFACE SYSTEM Refer to clinic/hospital department * (ABNORMAL) BASIC METABOLIC PANEL (01/15/2007 2:02 PM CDT) GLUCOSE 168(H) 70 - 110 mg/dL INTERFACE SYSTEM BUN 22(H) 7 - 17 mg/dL INTERFACE SYSTEM CREATININE 1.2 0.7 - 1.2 mg/dL INTERFACE SYSTEM SODIUM 140 136 - 145 mEq/L INTERFACE SYSTEM POTASSIUM 4.0 3.5 - 5.0 mEq/L INTERFACE SYSTEM CHLORIDE 103 95 - 110 mEq/L INTERFACE SYSTEM CO2 29 22 - 32 mmol/l INTERFACE SYSTEM CALCIUM 9.0 8.4 - 10.5 mg/dL INTERFACE SYSTEM ANION GAP 12 9 - 20 mEq/L INTERFACE SYSTEM OSMOLALITY, CALCULATED 295 275 - 295 mOsm/Kg INTERFACE SYSTEM 01/15/2007 2:02 PM CDT Adeel Jenkins DO CHEMISTRY ORDERABLES Edited Performing Organization Address [facility] Phone Number INTERFACE SYSTEM Refer to clinic/hospital department * (ABNORMAL) BRAIN NATRIURETIC PEPTIDE, BNP OR PROBNP (01/15/2007 2:02 PM CDT) Pathologist [facility] BRAIN NATRIURETIC PEPTIDE 298(H) 0 - 125 pg/mL INTERFACE SYSTEM 01/15/2007 2:02 PM CDT Access Intelligence Adeel Esvin Gregory VASQUEZ CHEMISTRY ORDERABLES Edited Performing Organization Address [facility] Phone Number INTERFACE SYSTEM Refer to clinic/hospital department * (ABNORMAL) HEMOGLOBIN AND HEMATOCRIT (01/15/2007 2:02 PM CDT) Pathologist [facility] HEMOGLOBIN 9.3(L) 12.0 - 16.0 g/dL INTERFACE SYSTEM HEMATOCRIT 28.1(L) 36.0 - 46.0 % INTERFACE SYSTEM 01/15/2007 2:02 PM CDT Adeel Jenkins DO HEMATOLOGY ORDERABLES Edited Performing Organization Address [facility] de Phone Number INTERFACE SYSTEM Refer to clinic/hospital department * (ABNORMAL) POC GLUCOSE (01/15/2007 12:39 PM CDT) GLUCOSE POC 110(H) 60 - 100 mg/dL INTERFACE SYSTEM 01/15/2007 12:3 9 PM CDT Adeel Jenkins DO POINT OF CARE TESTING Edited Performing Organization Address [facility] de Phone Number INTERFACE SYSTEM Refer to clinic/hospital department * (ABNORMAL) POC ISTAT EG 7+ (01/15/2007 9:47 AM CDT) SPECIMEN TYPE Arterial INTERF KRAIG SYSTEM Comment: Pressure Support: 05 Pulse OX: 99 Hemoglobin calculated from Hematocrit result FIO2 45 INTERFACE SYSTEM PH 7.51(H) 7.35 - 7.45 Unit INTERFACE SYSTEM PH TEMP CORRECT 7.51(H) 7.35 - 7.45 Unit INTERFACE SYSTEM PCO2 POC 36 35 - 45 mmHg INTERFACE SYSTEM PCO2 TEMP CORRECT 36 35 - 45 mmHg INTERFACE SYSTEM PO2 81 80 - 105 mmHg INTERFACE SYSTEM PO2 TEMP CORRECT 81 80 - 105 mmHg INTERFACE SYSTEM HCO3 (CALC) POC 29.1(H) 22.0 - 26.0 mmol/l INTERFACE SYSTEM BASE EXCESS 6(H) -2 - 3 mmol/l INTERFACE SYSTEM HEMOGLOBIN POC 8.8 3 g/dL 12.0 - 16.0 g/dL INTERFACE SYSTEM HEMATOCRIT ABG 26(L) 38 - 51 % INTER FACE SYSTEM O2 SATURATION 97 95 - 98 % INTERF KRAIG SYSTEM TCO2 (CALC) POC 30(H) 23 - 27 mmol/l INTERFACE SYSTEM SODIUM 139 138 - 146 mEq/L INTERFACE SYSTEM POTASSIUM 3.6 3.5 - 4.9 mEq/L INTERFACE SYSTEM CALCIUM IONIZED 1.18 1.12 - 1.32 mmol/l INTERFACE SYSTEM 01/15/2007 9:47 AM CDT Adeel Jenkins DO POINT OF CARE TESTING COM Edit ed INTERFACE SYSTEM Refer to clinic/hospital department * (ABNORMAL) POC ISTAT EG 7+ (01/15/2007 7:08 AM CDT) SPECIMEN TYPE Arterial INTERF KRAIG SYSTEM Comment: PEEP: 05 Pressure Support: 10 Pulse OX: 98 Hemoglobin calculated from Hematocrit result FIO2 45 INTERFACE SYSTEM PH 7.47(H) 7.35 - 7.45 Unit INTERFACE SYSTEM PH TEMP CORRECT 7.47(H) 7.35 - 7.45 Unit INTERFACE SYSTEM PCO2 POC 38 35 - 45 mmHg INTERFACE SYSTEM PCO2 TEMP CORRECT 38 35 - 45 mmHg INTERFACE SYSTEM PO2 70(L) 80 - 105 mmHg INTERFACE SYSTEM PO2 TEMP CORRECT 70(L) 80 - 105 mmHg INTERFACE SYSTEM HCO3 (CALC) POC 28.1(H) 22.0 - 26.0 mmol/l INTERFACE SYSTEM BASE EXCESS 4(H) -2 - 3 mmol/l INTERFACE SYSTEM HEMOGLOBIN POC 9.2 3 g/dL 12.0 - 16.0 g/dL INTERFACE SYSTEM HEMATOCRIT ABG 27(L) 38 - 51 % INTER FACE SYSTEM O2 SATURATION 95 95 - 98 % INTERF KRAIG SYSTEM TCO2 (CALC) POC 29(H) 23 - 27 mmol/l INTERFACE SYSTEM SODIUM 139 138 - 146 mEq/L INTERFACE SYSTEM POTASSIUM 3.9 3.5 - 4.9 mEq/L INTERFACE SYSTEM CALCIUM IONIZED 1.19 1.12 - 1.32 mmol/l INTERFACE SYSTEM 01/15/2007 7:08 AM CDT Adeel Jenkins DO POINT OF CARE TESTING COM Edit ed INTERFACE SYSTEM Refer to clinic/hospital department * (ABNORMAL) CBC WITH DIFFERENTIAL (01/15/2007 3:16 AM CDT) WBC 18.6(H) 4.8 - 10.8 K/ul INTERFACE SYSTEM RBC 3.03(L) 4.20 - 5.40 Mil/ul INTERFACE SYSTEM HEMOGLOBIN 8.8(L) 12.0 - 16.0 g/dL INTERFACE SYSTEM HEMATOCRIT 26.5(L) 36.0 - 46.0 % INTERFACE SYSTEM MCV 87.5 84.0 - 103.0 Fl INTERFACE SYSTEM MCH 29.0 27.0 - 34.0 pg INTERFACE SYSTEM MCHC 33.2 30.0 - 35.0 g/dL INTERFACE SYSTEM RDW 14.9(H) 11.0 - 14.5 % INTERFACE SYSTEM PLATELETS 211 140 - 440 K/ul INTERFACE SYSTEM MPV 10.1 8.9 - 12.8 Fl INTERFACE SYSTEM NEUTROPHILS 83.7(H) 42.2 - 75.2 % INTERFACE SYSTEM LYMPHOCYTES 6.7(L) 24.0 - 44.0 % INTERFACE SYSTEM MONOCYTES 7.4 2.0 - 10.0 % INTERFA CE SYSTEM EOSINOPHILS 2.0 0.0 - 7.0 % INTERF KRAIG SYSTEM BASOPHILS 0.2 0.0 - 1.0 % INTERFAC E SYSTEM NEUTROPHIL ABSOLUTE 15.5(H) 2.0 - 8.0 K/ul INTERFACE SYSTEM LYMPHOCYTE ABSOLUTE 1.2 1.2 - 4.0 K/ul INTERFACE SYSTEM MONOCYTE ABSOLUTE 1.4(H) 0.1 - 0.6 K/ul INTERFACE SYSTEM EOSINOPHIL ABSOLUTE 0.4 0.0 - 0.7 K/ul INTERFACE SYSTEM BASOPHILS ABSOLUTE 0.0 0.0 - 0.2 K/ul INTERFACE SYSTEM PERIPHERAL BLOOD SMEAR REVIEW Smear Reviewed Automated Diff INTERFACE SYSTEM 01/15/2007 3:16 AM CDT Adeel Jenkins DO HEMATOLOGY ORDERABLES Edited Performing Organization Address City/[facility] Co de Phone Number INTERFACE SYSTEM Refer to clinic/hospital department * PHOSPHORUS (01/15/2007 3:16 AM CDT) PHOSPHORUS 3.1 2.5 - 4.6 mg/dL INTERFACE SYSTEM 01/15/2007 3:16 AM CDT Adeel Jenkins DO CHEMISTRY ORDERABLES Edited Performing Organization Address City/State/[facility] Co de Phone Number INTERFACE SYSTEM Refer to clinic/hospital department * MAGNESIUM LEVEL (01/15/2007 3:16 AM CDT) MAGNESIUM 2.1 1.7 - 2.4 mg/dL INTERFACE SYSTEM Comment: The new reference range is 1.7-2.4 The old referance range was 1.6-2.3 01/15/2007 3:16 AM CDT us Adeel Jenkins CHEMISTRY ORDERABLES Edited Performing Organization Address [facility] Phone Number INTERFACE SYSTEM Refer to clinic/hospital department * (ABNORMAL) BASIC METABOLIC PANEL (01/15/2007 3:16 AM CDT) GLUCOSE 119(H) 70 - 110 mg/dL INTERFACE SYSTEM BUN 20(H) 7 - 17 mg/dL INTERFACE SYSTEM CREATININE 1.3(H) 0.7 - 1.2 mg/dL INTERFACE SYSTEM SODIUM 140 136 - 145 mEq/L INTERFACE SYSTEM POTASSIUM 3.5 3.5 - 5.0 mEq/L INTERFACE SYSTEM CHLORIDE 101 95 - 110 mEq/L INTERFACE SYSTEM CO2 27 22 - 32 mmol/l INTERFACE SYSTEM CALCIUM 9.0 8.4 - 10.5 mg/dL INTERFACE SYSTEM ANION GAP 16 9 - 20 mEq/L INTERFACE SYSTEM OSMOLALITY, CALCULATED 291 275 - 295 mOsm/Kg INTERFACE SYSTEM 01/15/2007 3:16 AM CDT Adeel Esvin Gregory VASQUEZ CHEMISTRY ORDERABLES Edited Performing Organization Address [facility] Phone Number INTERFACE SYSTEM Refer to clinic/hospital department * (ABNORMAL) POC GLUCOSE (01/14/2007 11:30 PM CDT) GLUCOSE POC 113(H) 60 - 100 mg/dL INTERFACE SYSTEM 01/14/2007 11:3 0 PM CDT Adeel Esvin Gregory VASQUEZ POINT OF CARE TESTING Edited Performing Organization Address [facility] Phone Number INTERFACE SYSTEM Refer to clinic/hospital department * POTASSIUM LEVEL (01/14/2007 9:06 PM CDT) POTASSIUM 3.5 3.5 - 5.0 mEq/L INTERFACE SYSTEM 01/14/2007 9:06 PM CDT Adeel Esvin EatonGregoryana VASQUEZ CHEMISTRY ORDERABLES Edited Performing Organization Address [facility] Phone Number INTERFACE SYSTEM Refer to clinic/hospital department * (ABNORMAL) HEMOGLOBIN AND HEMATOCRIT (01/14/2007 9:06 PM CDT) HEMOGLOBIN 9.0(L) 12.0 - 16.0 g/dL INTERFACE SYSTEM HEMATOCRIT 26.7(L) 36.0 - 46.0 % INTERFACE SYSTEM 01/14/2007 9:06 PM CDT Adeel Jenkins DO HEMATOLOGY ORDERABLES Edited Performing Organization Address [facility] de Phone Number INTERFACE SYSTEM Refer to clinic/hospital department * (ABNORMAL) POC GLUCOSE (01/14/2007 5:48 PM CDT) GLUCOSE POC 110(H) 60 - 100 mg/dL INTERFACE SYSTEM 01/14/2007 5:48 PM CDT Adeel Jenkins DO POINT OF CARE TESTING Edited Performing Organization Address [facility] Phone Number INTERFACE SYSTEM Refer to clinic/hospital department * (ABNORMAL) HEMOGLOBIN AND HEMATOCRIT (01/14/2007 3:09 PM CDT) HEMOGLOBIN 9.2(L) 12.0 - 16.0 g/dL INTERFACE SYSTEM HEMATOCRIT 27.4(L) 36.0 - 46.0 % INTERFACE SYSTEM 01/14/2007 3:09 PM CDT Adeel Esvin EatonGregoryana VASQUEZ HEMATOLOGY ORDERABLES Edited Performing Organization Address [facility] Phone Number INTERFACE SYSTEM Refer to clinic/hospital department * (ABNORMAL) BASIC METABOLIC PANEL (01/14/2007 3:09 PM CDT) GLUCOSE 111(H) 70 - 110 mg/dL INTERFACE SYSTEM BUN 19(H) 7 - 17 mg/dL INTERFACE SYSTEM CREATININE 1.3(H) 0.7 - 1.2 mg/dL INTERFACE SYSTEM SODIUM 142 136 - 145 mEq/L INTERFACE SYSTEM POTASSIUM 3.5 3.5 - 5.0 mEq/L INTERFACE SYSTEM CHLORIDE 103 95 - 110 mEq/L INTERFACE SYSTEM CO2 24 22 - 32 mmol/l INTERFACE SYSTEM CALCIUM 8.9 8.4 - 10.5 mg/dL INTERFACE SYSTEM ANION GAP 19 9 - 20 mEq/L INTERFACE SYSTEM OSMOLALITY, CALCULATED 294 275 - 295 mOsm/Kg INTERFACE SYSTEM 01/14/2007 3:09 PM CDT docTrackrson DO CHEMISTRY ORDERABLES Edited Performing Organization Address City/[facility]/ZIP Co de Phone Number INTERFACE SYSTEM Refer to clinic/hospital department * (ABNORMAL) POC GLUCOSE (01/14/2007 12:06 PM CDT) GLUCOSE POC 106(H) 60 - 100 mg/dL INTERFACE SYSTEM 01/14/2007 12:0 6 PM CDT Adeel Jenkins DO POINT OF CARE TESTING Edited Performing Organization Address [facility] de Phone Number INTERFACE SYSTEM Refer to clinic/hospital department * (ABNORMAL) POC ISTAT EG 7+ (01/14/2007 11:57 AM CDT) SPECIMEN TYPE Arterial INTERF KRAIG SYSTEM Comment: PEEP: 05 Pulse OX: 95 Hemoglobin calculated from Hematocrit result FIO2 40 INTERFACE SYSTEM PH 7.50(H) 7.35 - 7.45 Unit INTERFACE SYSTEM PH TEMP CORRECT 7.50(H) 7.35 - 7.45 Unit INTERFACE SYSTEM PCO2 POC 31(L) 35 - 45 mmHg INTERFACE SYSTEM PCO2 TEMP CORRECT 31(L) 35 - 45 mmHg INTERFACE SYSTEM PO2 64(L) 80 - 105 mmHg INTERFACE SYSTEM PO2 TEMP CORRECT 64(L) 80 - 105 mmHg INTERFACE SYSTEM HCO3 (CALC) POC 24.1 22.0 - 26.0 mmol/l INTERFACE SYSTEM BASE EXCESS 1 -2 - 3 mmol/l INTERFACE SYSTEM HEMOGLOBIN POC 8.8 3 g/dL 12.0 - 16.0 g/dL INTERFACE SYSTEM HEMATOCRIT ABG 26(L) 38 - 51 % INTER FACE SYSTEM O2 SATURATION 94(L) 95 - 98 % INTERF KRAIG SYSTEM TCO2 (CALC) POC 25 23 - 27 mmol/l INTERFACE SYSTEM SODIUM 140 138 - 146 mEq/L INTERFACE SYSTEM POTASSIUM 3.3(L) 3.5 - 4.9 mEq/L INTERFACE SYSTEM CALCIUM IONIZED 1.18 1.12 - 1.32 mmol/l INTERFACE SYSTEM 01/14/2007 11:5 7 AM CDT Adeel Jenkins DO POINT OF CARE TESTING COM Edit ed Performing Organization Address City/State/[facility] Co de Phone Number INTERFACE SYSTEM Refer to clinic/hospital department * (ABNORMAL) POC ISTAT EG 7+ (01/14/2007 4:55 AM CDT) SPECIMEN TYPE Arterial INTERF KRAIG SYSTEM Comment: PEEP: 05 Pressure Support: 10 Pulse OX: 95 Hemoglobin calculated from Hematocrit result FIO2 40 INTERFACE SYSTEM PH 7.45 7.35 - 7.45 Unit INTERFACE SYSTEM PH TEMP CORRECT 7.45 7.35 - 7.45 Unit INTERFACE SYSTEM PCO2 POC 30(L) 35 - 45 mmHg INTERFACE SYSTEM PCO2 TEMP CORRECT 30(L) 35 - 45 mmHg INTERFACE SYSTEM PO2 58(L) 80 - 105 mmHg INTERFACE SYSTEM PO2 TEMP CORRECT 58(L) 80 - 105 mmHg INTERFACE SYSTEM HCO3 (CALC) POC 21.0(L) 22.0 - 26.0 mmol/l INTERFACE SYSTEM BASE EXCESS -3(L) -2 - 3 mmol/l INTERFACE SYSTEM HEMOGLOBIN POC 7.8 3 g/dL 12.0 - 16.0 g/dL INTERFACE SYSTEM HEMATOCRIT ABG 23(L) 38 - 51 % INTER FACE SYSTEM O2 SATURATION 91(L) 95 - 98 % INTERF KRAIG SYSTEM TCO2 (CALC) POC 22(L) 23 - 27 mmol/l INTERFACE SYSTEM SODIUM 140 138 - 146 mEq/L INTERFACE SYSTEM POTASSIUM 3.3(L) 3.5 - 4.9 mEq/L INTERFACE SYSTEM CALCIUM IONIZED 1.19 1.12 - 1.32 mmol/l INTERFACE SYSTEM 01/14/2007 4:55 AM CDT us Adeel Jenkins DO POINT OF CARE TESTING COM Edit ed INTERFACE SYSTEM Refer to clinic/hospital department * (ABNORMAL) POC GLUCOSE (01/14/2007 4:52 AM CDT) GLUCOSE POC 101(H) 60 - 100 mg/dL INTERFACE SYSTEM 01/14/2007 4:52 AM CDT Adeel Jenkins DO POINT OF CARE TESTING Edited Performing Organization Address [facility] Phone Number INTERFACE SYSTEM Refer to clinic/hospital department * (ABNORMAL) PROTIME-INR (01/14/2007 3:07 AM CDT) PROTIME 16.2(H) 13.0 - 15.7 Secs INTERFACE SYSTEM Comment: As of 06 note change in normal range. INR 1.2 INTERFACE SYSTEM Comment: Expected Values for INR: DVT/PE Goal INR 2.5; range 2.0 - 3.0 Valve Replacement Tissue Goal INR 2.5; range 2.0 - 3.0 Mechanical Goal INR 3.0; range 2.5 - 3.5 POST-TX Goal INR 2.5; range 2.0 - 3.0 or Goal 3.0; range 2.5 - 3.5 Atrial Fibrillation Goal INR 2.5; range 2.0 - 3.0 Ischemic Stroke Goal INR 2.5; range 2.0 - 3.0 For additional information see Guidelines for Anticoagulation available from the pharmacy Johanny Frank. 01/14/2007 3:07 AM CDT Adeel Jenkins DO HEMATOLOGY ORDERABLES Edited Performing Organization Address [facility] Phone Number INTERFACE SYSTEM Refer to clinic/hospital department * (ABNORMAL) CBC WITH DIFFERENTIAL (01/14/2007 3:07 AM CDT) WBC 20.3(H) 4.8 - 10.8 K/ul INTERFACE SYSTEM RBC 2.98(L) 4.20 - 5.40 Mil/ul INTERFACE SYSTEM HEMOGLOBIN 8.7(L) 12.0 - 16.0 g/dL INTERFACE SYSTEM HEMATOCRIT 25.5(L) 36.0 - 46.0 % INTERFACE SYSTEM MCV 85.6 84.0 - 103.0 Fl INTERFACE SYSTEM MCH 29.2 27.0 - 34.0 pg INTERFACE SYSTEM MCHC 34.1 30.0 - 35.0 g/dL INTERFACE SYSTEM RDW 14.8(H) 11.0 - 14.5 % INTERFACE SYSTEM PLATELETS 176 140 - 440 K/ul INTERFACE SYSTEM MPV 10.3 8.9 - 12.8 Fl INTERFACE SYSTEM NEUTROPHILS 86.2(H) 42.2 - 75.2 % INTERFACE SYSTEM LYMPHOCYTES 6.3(L) 24.0 - 44.0 % INTERFACE SYSTEM MONOCYTES 6.5 2.0 - 10.0 % INTERFA CE SYSTEM EOSINOPHILS 0.6 0.0 - 7.0 % INTERF KRAIG SYSTEM BASOPHILS 0.4 0.0 - 1.0 % INTERFAC E SYSTEM NEUTROPHIL ABSOLUTE 17.5(H) 2.0 - 8.0 K/ul INTERFACE SYSTEM LYMPHOCYTE ABSOLUTE 1.3 1.2 - 4.0 K/ul INTERFACE SYSTEM MONOCYTE ABSOLUTE 1.3(H) 0.1 - 0.6 K/ul INTERFACE SYSTEM EOSINOPHIL ABSOLUTE 0.1 0.0 - 0.7 K/ul INTERFACE SYSTEM BASOPHILS ABSOLUTE 0.1 0.0 - 0.2 K/ul INTERFACE SYSTEM PERIPHERAL BLOOD SMEAR REVIEW Automated Diff Automated Diff INTERFACE SYSTEM 01/14/2007 3:07 AM CDT Adeel Jenkins DO HEMATOLOGY ORDERABLES Edited Performing Organization Address City/[facility] Co de Phone Number INTERFACE SYSTEM Refer to clinic/hospital department * PHOSPHORUS (01/14/2007 3:07 AM CDT) PHOSPHORUS 4.0 2.5 - 4.6 mg/dL INTERFACE SYSTEM 01/14/2007 3:07 AM CDT Adeel Jenkins DO CHEMISTRY ORDERABLES Edited INTERFACE SYSTEM Refer to clinic/hospital department * (ABNORMAL) MAGNESIUM LEVEL (01/14/2007 3:07 AM CDT) MAGNESIUM 1.3(L) 1.7 - 2.4 mg/dL INTERFACE SYSTEM Comment: The new reference range is 1.7-2.4 The old referance range was 1.6-2.3 01/14/2007 3:07 AM CDT Adeel Jenkins DO CHEMISTRY ORDERABLES Edited Performing Organization Address [facility] Phone Number INTERFACE SYSTEM Refer to clinic/hospital department * (ABNORMAL) BASIC METABOLIC PANEL (01/14/2007 3:07 AM CDT) GLUCOSE 102 70 - 110 mg/dL INTERFACE SYSTEM BUN 18(H) 7 - 17 mg/dL INTERFACE SYSTEM CREATININE 1.3(H) 0.7 - 1.2 mg/dL INTERFACE SYSTEM SODIUM 145 136 - 145 mEq/L INTERFACE SYSTEM POTASSIUM 3.5 3.5 - 5.0 mEq/L INTERFACE SYSTEM CHLORIDE 107 95 - 110 mEq/L INTERFACE SYSTEM CO2 23 22 - 32 mmol/l INTERFACE SYSTEM CALCIUM 8.5 8.4 - 10.5 mg/dL INTERFACE SYSTEM ANION GAP 19 9 - 20 mEq/L INTERFACE SYSTEM OSMOLALITY, CALCULATED 298(H) 275 - 295 mOsm/Kg INTERFACE SYSTEM 01/14/2007 3:07 AM CDT Adeel Eatonana VASQUEZ CHEMISTRY ORDERABLES Edited Performing Organization Address [facility] Phone Number INTERFACE SYSTEM Refer to clinic/hospital department * (ABNORMAL) POC GLUCOSE (01/13/2007 11:18 PM CDT) GLUCOSE POC 110(H) 60 - 100 mg/dL INTERFACE SYSTEM 01/13/2007 11:1 8 PM CDT Adeel Eatonana VASQUEZ POINT OF CARE TESTING Edited Performing Organization Address [facility] Phone Number INTERFACE SYSTEM Refer to clinic/hospital department * (ABNORMAL) PROTIME-INR (01/13/2007 6:07 PM CDT) PROTIME 16.2(H) 13.0 - 15.7 Secs INTERFACE SYSTEM Comment: As of 06 note change in normal range. INR 1.2 INTERFACE SYSTEM Comment: Expected Values for INR: DVT/PE Goal INR 2.5; range 2.0 - 3.0 Valve Replacement Tissue Goal INR 2.5; range 2.0 - 3.0 Mechanical Goal INR 3.0; range 2.5 - 3.5 POST-TX Goal INR 2.5; range 2.0 - 3.0 or Goal 3.0; range 2.5 - 3.5 Atrial Fibrillation Goal INR 2.5; range 2.0 - 3.0 Ischemic Stroke Goal INR 2.5; range 2.0 - 3.0 For additional information see Guidelines for Anticoagulation available from the pharmacy Johanny Frank 01/13/2007 6:07 PM CDT Adeel Jenkins DO HEMATOLOGY ORDERABLES Edited INTERFACE SYSTEM Refer to clinic/hospital department * (ABNORMAL) CBC WITHOUT DIFFERENTIAL (01/13/2007 6:07 PM CDT) WBC 19.6(H) 4.8 - 10.8 K/ul INTERFACE SYSTEM RBC 2.89(L) 4.20 - 5.40 Mil/ul INTERFACE SYSTEM HEMOGLOBIN 8.4(L) 12.0 - 16.0 g/dL INTERFACE SYSTEM HEMATOCRIT 24.5(L) 36.0 - 46.0 % INTERFACE SYSTEM MCV 84.8 84.0 - 103.0 Fl INTERFACE SYSTEM MCH 29.1 27.0 - 34.0 pg INTERFACE SYSTEM MCHC 34.3 30.0 - 35.0 g/dL INTERFACE SYSTEM RDW 14.7(H) 11.0 - 14.5 % INTERFACE SYSTEM PLATELETS 146 140 - 440 K/ul INTERFACE SYSTEM MPV 10.6 8.9 - 12.8 Fl INTERFACE SYSTEM NEUTROPHILS 80.6(H) 42.2 - 75.2 % INTERFACE SYSTEM LYMPHOCYTES 11.0(L) 24.0 - 44.0 % INTERFACE SYSTEM MONOCYTES 7.3 2.0 - 10.0 % INTERFACE SYSTEM EOSINOPHILS 0.5 0.0 - 7.0 % INTERFACE SYSTEM BASOPHILS 0.6 0.0 - 1.0 % INTERFACE SYSTEM NEUTROPHIL ABSOLUTE 15.8(H) 2.0 - 8.0 K/ul INTERFACE SYSTEM LYMPHOCYTE ABSOLUTE 2.2 1.2 - 4.0 K/ul INTERFACE SYSTEM MONOCYTE ABSOLUTE 1.4(H) 0.1 - 0.6 K/ul INTERFACE SYSTEM EOSINOPHIL ABSOLUTE 0.1 0.0 - 0.7 K/ul INTERFACE SYSTEM BASOPHILS ABSOLUTE 0.1 0.0 - 0.2 K/ul INTERFACE SYSTEM 01/13/2007 6:07 PM CDT Adeel Jenkins DO HEMATOLOGY ORDERABLES Edited Performing Organization Address City/[facility] de Phone Number INTERFACE SYSTEM Refer to clinic/hospital department * (ABNORMAL) POC GLUCOSE (01/13/2007 5:22 PM CDT) GLUCOSE POC 107(H) 60 - 100 mg/dL INTERFACE SYSTEM 01/13/2007 5:22 PM CDT Adeel Jenkins DO POINT OF CARE TESTING Edited Performing Organization Address [facility] de Phone Number INTERFACE SYSTEM Refer to clinic/hospital department * (ABNORMAL) POC ISTAT EG 7+ (01/13/2007 2:43 PM CDT) SPECIMEN TYPE Arterial INTERF KRAIG SYSTEM Comment: PEEP: 05 Pulse OX: 90 Hemoglobin calculated from Hematocrit result FIO2 30 INTERFACE SYSTEM PH 7.39 7.35 - 7.45 Unit INTERFACE SYSTEM PH TEMP CORRECT 7.39 7.35 - 7.45 Unit INTERFACE SYSTEM PCO2 POC 34(L) 35 - 45 mmHg INTERFACE SYSTEM PCO2 TEMP CORRECT 34(L) 35 - 45 mmHg INTERFACE SYSTEM PO2 56(L) 80 - 105 mmHg INTERFACE SYSTEM PO2 TEMP CORRECT 56(L) 80 - 105 mmHg INTERFACE SYSTEM HCO3 (CALC) POC 20.4(L) 22.0 - 26.0 mmol/l INTERFACE SYSTEM BASE EXCESS -4(L) -2 - 3 mmol/l INTERFACE SYSTEM HEMOGLOBIN POC 8.2 3 g/dL 12.0 - 16.0 g/dL INTERFACE SYSTEM HEMATOCRIT ABG 24(L) 38 - 51 % INTER FACE SYSTEM O2 SATURATION 89(L) 95 - 98 % INTERF KRAIG SYSTEM TCO2 (CALC) POC 21(L) 23 - 27 mmol/l INTERFACE SYSTEM SODIUM 142 138 - 146 mEq/L INTERFACE SYSTEM POTASSIUM 3.7 3.5 - 4.9 mEq/L INTERFACE SYSTEM CALCIUM IONIZED 1.19 1.12 - 1.32 mmol/l INTERFACE SYSTEM 01/13/2007 2:43 PM CDT Adeel Jenkins DO POINT OF CARE TESTING COM Edit ed Performing Organization Address [facility] Phone Number INTERFACE SYSTEM Refer to clinic/hospital department * (ABNORMAL) PROTIME-INR (01/13/2007 2:32 PM CDT) PROTIME 16.8(H) 13.0 - 15.7 Secs INTERFACE SYSTEM Comment: As of 06 note change in normal range. INR 1.2 INTERFACE SYSTEM Comment: Expected Values for INR: DVT/PE Goal INR 2.5; range 2.0 - 3.0 Valve Replacement Tissue Goal INR 2.5; range 2.0 - 3.0 Mechanical Goal INR 3.0; range 2.5 - 3.5 POST-TX Goal INR 2.5; range 2.0 - 3.0 or Goal 3.0; range 2.5 - 3.5 Atrial Fibrillation Goal INR 2.5; range 2.0 - 3.0 Ischemic Stroke Goal INR 2.5; range 2.0 - 3.0 For additional information see Guidelines for Anticoagulation available from the pharmacy Johanny Frank D. 01/13/2007 2:32 PM CDT Adeel Jenkins DO HEMATOLOGY ORDERABLES Edited Performing Organization Address [facility] Phone Number INTERFACE SYSTEM Refer to clinic/hospital department * (ABNORMAL) CBC WITHOUT DIFFERENTIAL (01/13/2007 2:32 PM CDT) WBC 18.3(H) 4.8 - 10.8 K/ul INTERFACE SYSTEM RBC 2.97(L) 4.20 - 5.40 Mil/ul INTERFACE SYSTEM HEMOGLOBIN 8.7(L) 12.0 - 16.0 g/dL INTERFACE SYSTEM HEMATOCRIT 25.2(L) 36.0 - 46.0 % INTERFACE SYSTEM MCV 84.8 84.0 - 103.0 Fl INTERFACE SYSTEM MCH 29.3 27.0 - 34.0 pg INTERFACE SYSTEM MCHC 34.5 30.0 - 35.0 g/dL INTERFACE SYSTEM RDW 14.4 11.0 - 14.5 % INTERFACE SYSTEM PLATELETS 129(L) 140 - 440 K/ul INTERFACE SYSTEM MPV 10.5 8.9 - 12.8 Fl INTERFACE SYSTEM NEUTROPHILS 77.5(H) 42.2 - 75.2 % INTERFACE SYSTEM LYMPHOCYTES 12.9(L) 24.0 - 44.0 % INTERFACE SYSTEM MONOCYTES 8.9 2.0 - 10.0 % INTERFA CE SYSTEM EOSINOPHILS 0.2 0.0 - 7.0 % INTERF KRAIG SYSTEM BASOPHILS 0.5 0.0 - 1.0 % INTERFAC E SYSTEM NEUTROPHIL ABSOLUTE 14.2(H) 2.0 - 8.0 K/ul INTERFACE SYSTEM LYMPHOCYTE ABSOLUTE 2.4 1.2 - 4.0 K/ul INTERFACE SYSTEM MONOCYTE ABSOLUTE 1.6(H) 0.1 - 0.6 K/ul INTERFACE SYSTEM EOSINOPHIL ABSOLUTE 0.0 0.0 - 0.7 K/ul INTERFACE SYSTEM BASOPHILS ABSOLUTE 0.1 0.0 - 0.2 K/ul INTERFACE SYSTEM HEM COMMENT Smear Reviewed Automated Diff INTERFACE SYSTEM 01/13/2007 2:32 PM CDT [employer] HEMATOLOGY ORDERABLES Edited Performing Organization Address [facility] Phone Number INTERFACE SYSTEM Refer to clinic/hospital department * (ABNORMAL) POC GLUCOSE (01/13/2007 1:16 PM CDT) GLUCOSE POC 106(H) 60 - 100 mg/dL INTERFACE SYSTEM 01/13/2007 1:16 PM CDT docTrackrson DO POINT OF CARE TESTING Edited Performing Organization Address [facility] Phone Number INTERFACE SYSTEM Refer to clinic/hospital department * (ABNORMAL) HEMOGLOBIN AND HEMATOCRIT (01/13/2007 7:45 AM CDT) HEMOGLOBIN 9.9(L) 12.0 - 16.0 g/dL INTERFACE SYSTEM HEMATOCRIT 28.7(L) 36.0 - 46.0 % INTERFACE SYSTEM 01/13/2007 7:45 AM CDT [employer] DO HEMATOLOGY ORDERABLES Edited Performing Organization Address [facility] de Phone Number INTERFACE SYSTEM Refer to clinic/hospital department * (ABNORMAL) POC ISTAT EG 7+ (01/13/2007 5:17 AM CDT) SPECIMEN TYPE Arterial INTERF KRAIG SYSTEM Comment: Tidal volume: 550 PEEP: 05 Rate: 12 Pulse OX: 100 Hemoglobin calculated from Hematocrit result FIO2 30 INTERFACE SYSTEM PH 7.49(H) 7.35 - 7.45 Unit INTERFACE SYSTEM PH TEMP CORRECT 7.49(H) 7.35 - 7.45 Unit INTERFACE SYSTEM PCO2 POC 28(L) 35 - 45 mmHg INTERFACE SYSTEM PCO2 TEMP CORRECT 28(L) 35 - 45 mmHg INTERFACE SYSTEM PO2 79(L) 80 - 105 mmHg INTERFACE SYSTEM PO2 TEMP CORRECT 79(L) 80 - 105 mmHg INTERFACE SYSTEM HCO3 (CALC) POC 21.8(L) 22.0 - 26.0 mmol/l INTERFACE SYSTEM BASE EXCESS -2 -2 - 3 mmol/l INTERFACE SYSTEM HEMOGLOBIN POC 9.2 3 g/dL 12.0 - 16.0 g/dL INTERFACE SYSTEM HEMATOCRIT ABG 27(L) 38 - 51 % INTER FACE SYSTEM O2 SATURATION 97 95 - 98 % INTERF KRAIG SYSTEM TCO2 (CALC) POC 23 23 - 27 mmol/l INTERFACE SYSTEM SODIUM 143 138 - 146 mEq/L INTERFACE SYSTEM POTASSIUM 3.7 3.5 - 4.9 mEq/L INTERFACE SYSTEM CALCIUM IONIZED 1.12 1.12 - 1.32 mmol/l INTERFACE SYSTEM 01/13/2007 5:17 AM CDT Adeel Jenkins DO POINT OF CARE TESTING COM Edit ed Performing Organization Address [facility] Co de Phone Number INTERFACE SYSTEM Refer to clinic/hospital department * (ABNORMAL) PROTIME-INR (01/13/2007 3:40 AM CDT) PROTIME 19.0(H) 13.0 - 15.7 Secs INTERFACE SYSTEM Comment: As of 06 note change in normal range. INR 1.4 INTERFACE SYSTEM Comment: Expected Values for INR: DVT/PE Goal INR 2.5; range 2.0 - 3.0 Valve Replacement Tissue Goal INR 2.5; range 2.0 - 3.0 Mechanical Goal INR 3.0; range 2.5 - 3.5 POST-TX Goal INR 2.5; range 2.0 - 3.0 or Goal 3.0; range 2.5 - 3.5 Atrial Fibrillation Goal INR 2.5; range 2.0 - 3.0 Ischemic Stroke Goal INR 2.5; range 2.0 - 3.0 For additional information see Guidelines for Anticoagulation available from the pharmacy Johanny Frank 01/13/2007 3:40 AM CDT Adeel Gregory HEMATOLOGY ORDERABLES Edited Performing Organization Address [facility] Phone Number INTERFACE SYSTEM Refer to clinic/hospital department * (ABNORMAL) BASIC METABOLIC PANEL PLUS (01/13/2007 3:40 AM CDT) TOTAL PROTEIN 3.5(L) 6.3 - 8.2 g/dL INTERFACE SYSTEM ALBUMIN 2.1(L) 3.5 - 5.0 g/dL INTERFACE SYSTEM ALKALINE PHOSPHATASE 32 25 - 100 U/L INTERFACE SYSTEM AST 404(H) 8 - 33 U/L INTERFACE SYSTEM ALT 207(H) 4 - 36 IU/L INTERFACE SYSTEM BILIRUBIN TOTAL 1.1 0.3 - 1.2 mg/dL INTERFACE SYSTEM 01/13/2007 3:40 AM CDT Adeel Jenkins DO CHEMISTRY ORDERABLES Edited Performing Organization Address [facility] Phone Number INTERFACE SYSTEM Refer to clinic/hospital department * (ABNORMAL) BASIC METABOLIC PANEL (01/13/2007 3:40 AM CDT) GLUCOSE 100 70 - 110 mg/dL INTERFACE SYSTEM BUN 16 7 - 17 mg/dL INTERFACE SYSTEM CREATININE 1.0 0.7 - 1.2 mg/dL INTERFACE SYSTEM SODIUM 145 136 - 145 mEq/L INTERFACE SYSTEM POTASSIUM 3.9 3.5 - 5.0 mEq/L INTERFACE SYSTEM CHLORIDE 111(H) 95 - 110 mEq/L INTERFACE SYSTEM CO2 22 22 - 32 mmol/l INTERFACE SYSTEM CALCIUM 7.6(L) 8.4 - 10.5 mg/dL INTERFACE SYSTEM ANION GAP 16 9 - 20 mEq/L INTERFACE SYSTEM OSMOLALITY, CALCULATED 298(H) 275 - 295 mOsm/Kg INTERFACE SYSTEM 01/13/2007 3:40 AM CDT Adeel Jenkins DO CHEMISTRY ORDERABLES Edited INTERFACE SYSTEM Refer to clinic/hospital department * (ABNORMAL) CBC WITH DIFFERENTIAL (01/13/2007 3:40 AM CDT) WBC 10.1 4.8 - 10.8 K/ul INTERFACE SYSTEM RBC 3.33(L) 4.20 - 5.40 Mil/ul INTERFACE SYSTEM HEMOGLOBIN 9.7(L) 12.0 - 16.0 g/dL INTERFACE SYSTEM HEMATOCRIT 28.3(L) 36.0 - 46.0 % INTERFACE SYSTEM MCV 85.0 84.0 - 103.0 Fl INTERFACE SYSTEM MCH 29.1 27.0 - 34.0 pg INTERFACE SYSTEM MCHC 34.3 30.0 - 35.0 g/dL INTERFACE SYSTEM RDW 14.0 11.0 - 14.5 % INTERFACE SYSTEM PLATELETS 87(L) 140 - 440 K/ul INTERFACE SYSTEM MPV 11.1 8.9 - 12.8 Fl INTERFACE SYSTEM NEUTROPHILS 63.7 42.2 - 75.2 % INTERFACE SYSTEM LYMPHOCYTES 28.2 24.0 - 44.0 % INTERFACE SYSTEM MONOCYTES 7.2 2.0 - 10.0 % INTERFA CE SYSTEM EOSINOPHILS 0.2 0.0 - 7.0 % INTERF KRAIG SYSTEM BASOPHILS 0.7 0.0 - 1.0 % INTERFAC E SYSTEM NEUTROPHIL ABSOLUTE 6.5 2.0 - 8.0 K/ul INTERFACE SYSTEM LYMPHOCYTE ABSOLUTE 2.9 1.2 - 4.0 K/ul INTERFACE SYSTEM MONOCYTE ABSOLUTE 0.7(H) 0.1 - 0.6 K/ul INTERFACE SYSTEM EOSINOPHIL ABSOLUTE 0.0 0.0 - 0.7 K/ul INTERFACE SYSTEM BASOPHILS ABSOLUTE 0.1 0.0 - 0.2 K/ul INTERFACE SYSTEM PERIPHERAL BLOOD SMEAR REVIEW Automated Diff Automated Diff INTERFACE SYSTEM HEM COMMENT Smear Reviewed Automated Diff INTERFACE SYSTEM 01/13/2007 3:40 AM CDT Adeel S Gregory DO HEMATOLOGY ORDERABLES Edited Performing Organization Address City/[facility] Co de Phone Number INTERFACE SYSTEM Refer to clinic/hospital department * (ABNORMAL) POC ISTAT GC4+ (01/13/2007 1:32 AM CDT) SPECIMEN TYPE Arterial INTERF KRAIG SYSTEM Comment: Tidal volume: 550 PEEP: 05 Rate: 12 Pulse OX: 100 LACTIC ACID 2.97(H) 0.36 - 1.25 mmol/l INTERFACE SYSTEM PH 7.45 7.35 - 7.45 Unit INTERFACE SYSTEM PH TEMP CORRECT 7.45 7.35 - 7.45 Unit INTERFACE SYSTEM PCO2 POC 33(L) 35 - 45 mmHg INTERFACE SYSTEM PCO2 TEMP CORRECT 33(L) 35 - 45 mmHg INTERFACE SYSTEM PO2 105 80 - 105 mmHg INTERFACE SYSTEM PO2 TEMP CORRECT 105 80 - 105 mmHg INTERFACE SYSTEM HCO3 (CALC) POC 22.5 22.0 - 26.0 mmol/l INTERFACE SYSTEM BASE EXCESS -2 -2 - 3 mmol/l INTERFACE SYSTEM O2 SATURATION 98 95 - 98 % INTERF KRAIG SYSTEM TCO2 (CALC) POC 23 23 - 27 mmol/l INTERFACE SYSTEM 01/13/2007 1:32 AM CDT Adeel Jenkins DO ABG ORDERABLES Edited Performing Organization Address [facility] de Phone Number INTERFACE SYSTEM Refer to clinic/hospital department * (ABNORMAL) POC ISTAT EG 7+ (01/13/2007 1:26 AM CDT) SPECIMEN TYPE Arterial INTERF KRAIG SYSTEM Comment: Tidal volume: 550 PEEP: 05 Rate: 12 Pulse OX: 100 Hemoglobin calculated from Hematocrit result FIO2 30 INTERFACE SYSTEM PH 7.45 7.35 - 7.45 Unit INTERFACE SYSTEM PH TEMP CORRECT 7.45 7.35 - 7.45 Unit INTERFACE SYSTEM PCO2 POC 31(L) 35 - 45 mmHg INTERFACE SYSTEM PCO2 TEMP CORRECT 31(L) 35 - 45 mmHg INTERFACE SYSTEM PO2 95 80 - 105 mmHg INTERFACE SYSTEM PO2 TEMP CORRECT 95 80 - 105 mmHg INTERFACE SYSTEM HCO3 (CALC) POC 21.9(L) 22.0 - 26.0 mmol/l INTERFACE SYSTEM BASE EXCESS -2 -2 - 3 mmol/l INTERFACE SYSTEM HEMOGLOBIN POC 6.5 3 g/dL 12.0 - 16.0 g/dL INTERFACE SYSTEM HEMATOCRIT ABG 19(L) 38 - 51 % INTER FACE SYSTEM O2 SATURATION 98 95 - 98 % INTERF KRAIG SYSTEM TCO2 (CALC) POC 23 23 - 27 mmol/l INTERFACE SYSTEM SODIUM 143 138 - 146 mEq/L INTERFACE SYSTEM POTASSIUM 3.7 3.5 - 4.9 mEq/L INTERFACE SYSTEM CALCIUM IONIZED 1.16 1.12 - 1.32 mmol/l INTERFACE SYSTEM 01/13/2007 1:26 AM CDT Adeel Jenkins DO POINT OF CARE TESTING COM Edit ed Performing Organization Address City/[facility] de Phone Number INTERFACE SYSTEM Refer to clinic/hospital department * (ABNORMAL) PLATELET COUNT (01/13/2007 12:30 AM CDT) PLATELETS 67(L) 140 - 440 K/ul INTERFACE SYSTEM 01/13/2007 12:3 0 AM CDT Adeel Jenkins DO HEMATOLOGY ORDERABLES Edited Performing Organization Address City/[facility] de Phone Number INTERFACE SYSTEM Refer to clinic/hospital department * (ABNORMAL) PROTIME-INR (01/13/2007 12:30 AM CDT) PROTIME 21.0(H) 13.0 - 15.7 Secs INTERFACE SYSTEM Comment: As of 06 note change in normal range. INR 1.7 INTERFACE SYSTEM Comment: Expected Values for INR: DVT/PE Goal INR 2.5; range 2.0 - 3.0 Valve Replacement Tissue Goal INR 2.5; range 2.0 - 3.0 Mechanical Goal INR 3.0; range 2.5 - 3.5 POST-TX Goal INR 2.5; range 2.0 - 3.0 or Goal 3.0; range 2.5 - 3.5 Atrial Fibrillation Goal INR 2.5; range 2.0 - 3.0 Ischemic Stroke Goal INR 2.5; range 2.0 - 3.0 For additional information see Guidelines for Anticoagulation available from the pharmacy Johanny Frank. 01/13/2007 12:3 0 AM CDT Adeel Jenkins DO HEMATOLOGY ORDERABLES Edited Performing Organization Address [facility] Phone Number INTERFACE SYSTEM Refer to clinic/hospital department * (ABNORMAL) HEMOGLOBIN AND HEMATOCRIT (01/13/2007 12:30 AM CDT) HEMOGLOBIN 9.0(L) 12.0 - 16.0 g/dL INTERFACE SYSTEM HEMATOCRIT 25.9(L) 36.0 - 46.0 % INTERFACE SYSTEM 01/13/2007 12:3 0 AM CDT Adeel Eatonson DO HEMATOLOGY ORDERABLES Edited Performing Organization Address [facility] Phone Number INTERFACE SYSTEM Refer to clinic/hospital department * CK TOTAL, RELATIVE INDEX (01/13/2007 12:30 AM CDT) CK-MB CHEMICAL INDEX 3.7 0.0 - 4.5 INTERFACE SYSTEM 01/13/2007 12:3 0 AM CDT Gracia Hayes MD CHEMISTRY ORDERABLES Edite d Performing Organization Address [facility] Phone Number INTERFACE SYSTEM Refer to clinic/hospital department * (ABNORMAL) CK (01/13/2007 12:30 AM CDT) CK 656(H) 26 - 140 U/L INTERFACE SYSTEM Comment: As of 05 the [facility] has changed testing methods. The new reference ranges are Males 38-174 Females 26-140 The old referance ranges were Males 0-155 Females 0-133 01/13/2007 12:3 0 AM CDT Gracia Hayes MD CHEMISTRY ORDERABLES Edite d Performing Organization Address City/[facility] Phone Number INTERFACE SYSTEM Refer to clinic/hospital department * (ABNORMAL) CARDIAC ENZYMES (01/13/2007 12:30 AM CDT) TROPONIN I 0.6 0.0 - 1.5 ng/mL INTERFACE SYSTEM CKMB 24.0(H) 0.0 - 5.0 ng/mL INTERFACE SYSTEM 01/13/2007 12:3 0 AM CDT Gracia Hayes MD CHEMISTRY ORDERABLES Edite d Performing Organization Address [facility] Phone Number INTERFACE SYSTEM Refer to clinic/hospital department * (ABNORMAL) DIFFERENTIAL, MANUAL (01/12/2007 10:49 PM CDT) NEUTROPHILS, SEG 63 36 - 66 % INT ERFACE SYSTEM BANDS 5 0 - 6 % INTERFACE SYSTEM LYMPHOCYTES 25 24 - 44 % INTERFAC E SYSTEM MONOCYTE 6 4 - 10 % INTERFACE SYSTEM MYELOCYTES 1 <=1 % INTERFACE SYSTEM PLATELET EST. Decreased (A) Normal INTERFACE SYSTEM RBC MORPHOLOGY Abnormal( A) Normal INTERFACE SYSTEM POIKILOCYTES 1+(A) None Seen INTERFA CE SYSTEM POLYCHROMASIA 1+(A) None Seen INTERF KRAIG SYSTEM 01/12/2007 10:4 9 PM CDT Adeel Jenkins DO HEMATOLOGY ORDERABLES COM Edit ed Performing Organization Address [facility] Phone Number INTERFACE SYSTEM Refer to clinic/hospital department * (ABNORMAL) CBC WITH DIFFERENTIAL (01/12/2007 10:49 PM CDT) WBC 9.6 4.8 - 10.8 K/ul INTERFACE SYSTEM RBC 4.08(L) 4.20 - 5.40 Mil/ul INTERFACE SYSTEM HEMOGLOBIN 11.8(L) 12.0 - 16.0 g/dL INTERFACE SYSTEM HEMATOCRIT 34.2(L) 36.0 - 46.0 % INTERFACE SYSTEM MCV 83.8(L) 84.0 - 103.0 Fl INTERFACE SYSTEM MCH 28.9 27.0 - 34.0 pg INTERFACE SYSTEM MCHC 34.5 30.0 - 35.0 g/dL INTERFACE SYSTEM RDW 14.2 11.0 - 14.5 % INTERFACE SYSTEM PLATELETS 66(L) 140 - 440 K/ul INTERFACE SYSTEM MPV 10.4 8.9 - 12.8 Fl INTERFACE SYSTEM 01/12/2007 10:4 9 PM CDT Adeel Jenkins DO HEMATOLOGY ORDERABLES Edited Performing Organization Address City/[facility] Co de Phone Number INTERFACE SYSTEM Refer to clinic/hospital department * (ABNORMAL) POC ISTAT EG 7+ (01/12/2007 7:22 PM CDT) SPECIMEN TYPE Arterial INTERF KRAIG SYSTEM Comment: Tidal volume: 550 PEEP: 05 Rate: 12 Pulse OX: 100 Hemoglobin calculated from Hematocrit result FIO2 50 INTERFACE SYSTEM PH 7.41 7.35 - 7.45 Unit INTERFACE SYSTEM PH TEMP CORRECT 7.41 7.35 - 7.45 Unit INTERFACE SYSTEM PCO2 POC 34(L) 35 - 45 mmHg INTERFACE SYSTEM PCO2 TEMP CORRECT 34(L) 35 - 45 mmHg INTERFACE SYSTEM PO2 144(H) 80 - 105 mmHg INTERFACE SYSTEM PO2 TEMP CORRECT 144(H) 80 - 105 mmHg INTERFACE SYSTEM HCO3 (CALC) POC 21.8(L) 22.0 - 26.0 mmol/l INTERFACE SYSTEM BASE EXCESS -3(L) -2 - 3 mmol/l INTERFACE SYSTEM HEMOGLOBIN POC 12.9 3 g/dL 12.0 - 16.0 g/dL INTERFACE SYSTEM HEMATOCRIT ABG 38 38 - 51 % INTER FACE SYSTEM O2 SATURATION 99(H) 95 - 98 % INTERF KRAIG SYSTEM TCO2 (CALC) POC 23 23 - 27 mmol/l INTERFACE SYSTEM SODIUM 142 138 - 146 mEq/L INTERFACE SYSTEM POTASSIUM 3.7 3.5 - 4.9 mEq/L INTERFACE SYSTEM CALCIUM IONIZED 1.24 1.12 - 1.32 mmol/l INTERFACE SYSTEM 01/12/2007 7:22 PM CDT Adeel Jenkins DO POINT OF CARE TESTING COM Edit ed Performing Organization Address City/[facility]/ZIP Co de Phone Number INTERFACE SYSTEM Refer to clinic/hospital department * (ABNORMAL) PTT (01/12/2007 6:55 PM CDT) PTT 70.9(H) 21.6 - 35.6 Secs INTERFACE SYSTEM Comment: Therapeutic Range: Hi-level PE/DVT heparin protocol 80.1 -95.0 sec Lo-level PE/DVT heparin protocol 67.1 - 80.0 sec Cardiac Heparin Protocol 67.1 - 85.0 sec Neuro Heparin Protocol 67.1 - 80.0 sec As of 08/29/2006 note change in APTT Normal Range. 01/12/2007 6:55 PM CDT [facility] Esvin Gregory HEMATOLOGY ORDERABLES Edited Performing Organization Address [facility] Phone Number INTERFACE SYSTEM Refer to clinic/hospital department * (ABNORMAL) PROTIME-INR (01/12/2007 6:55 PM CDT) PROTIME 33.2(H) 13.0 - 15.7 Secs INTERFACE SYSTEM Comment: As of 06 note change in normal range. INR 3.0 INTERFACE SYSTEM Comment: Expected Values for INR: DVT/PE Goal INR 2.5; range 2.0 - 3.0 Valve Replacement Tissue Goal INR 2.5; range 2.0 - 3.0 Mechanical Goal INR 3.0; range 2.5 - 3.5 POST-TX Goal INR 2.5; range 2.0 - 3.0 or Goal 3.0; range 2.5 - 3.5 Atrial Fibrillation Goal INR 2.5; range 2.0 - 3.0 Ischemic Stroke Goal INR 2.5; range 2.0 - 3.0 For additional information see Guidelines for Anticoagulation available from the pharmacy Faustina Tellez Pharm D. 01/12/2007 6:55 PM CDT [facility] Esvin Gregory HEMATOLOGY ORDERABLES Edited Performing Organization Address [facility] Phone Number INTERFACE SYSTEM Refer to clinic/hospital department * (ABNORMAL) CBC WITH DIFFERENTIAL (01/12/2007 6:55 PM CDT) WBC 11.2(H) 4.8 - 10.8 K/ul INTERFACE SYSTEM RBC 3.97(L) 4.20 - 5.40 Mil/ul INTERFACE SYSTEM HEMOGLOBIN 11.5(L) 12.0 - 16.0 g/dL INTERFACE SYSTEM HEMATOCRIT 33.6(L) 36.0 - 46.0 % INTERFACE SYSTEM MCV 84.6 84.0 - 103.0 Fl INTERFACE SYSTEM MCH 29.0 27.0 - 34.0 pg INTERFACE SYSTEM MCHC 34.2 30.0 - 35.0 g/dL INTERFACE SYSTEM RDW 14.1 11.0 - 14.5 % INTERFACE SYSTEM PLATELETS 35(L) 140 - 440 K/ul INTERFACE SYSTEM MPV 10.1 8.9 - 12.8 Fl INTERFACE SYSTEM NEUTROPHILS 75.8(H) 42.2 - 75.2 % INTERFACE SYSTEM LYMPHOCYTES 14.5(L) 24.0 - 44.0 % INTERFACE SYSTEM MONOCYTES 7.3 2.0 - 10.0 % INTERFA CE SYSTEM BASOPHILS 2.3(H) 0.0 - 1.0 % INTERFAC E SYSTEM NEUTROPHIL ABSOLUTE 8.5(H) 2.0 - 8.0 K/ul INTERFACE SYSTEM LYMPHOCYTE ABSOLUTE 1.6 1.2 - 4.0 K/ul INTERFACE SYSTEM MONOCYTE ABSOLUTE 0.8(H) 0.1 - 0.6 K/ul INTERFACE SYSTEM BASOPHILS ABSOLUTE 0.3(H) 0.0 - 0.2 K/ul INTERFACE SYSTEM HEM COMMENT Smear Reviewed Automated Diff INTERFACE SYSTEM 01/12/2007 6:55 PM CDT [employer] DO HEMATOLOGY ORDERABLES Edited Performing Organization Address City/State/[facility] Co de Phone Number INTERFACE SYSTEM Refer to clinic/hospital department * (ABNORMAL) BASIC METABOLIC PANEL (01/12/2007 6:55 PM CDT) GLUCOSE 94 70 - 110 mg/dL INTERFACE SYSTEM BUN 16 7 - 17 mg/dL INTERFACE SYSTEM CREATININE 0.8 0.7 - 1.2 mg/dL INTERFACE SYSTEM SODIUM 143 136 - 145 mEq/L INTERFACE SYSTEM POTASSIUM 3.8 3.5 - 5.0 mEq/L INTERFACE SYSTEM CHLORIDE 113(H) 95 - 110 mEq/L INTERFACE SYSTEM CO2 23 22 - 32 mmol/l INTERFACE SYSTEM CALCIUM 8.2(L) 8.4 - 10.5 mg/dL INTERFACE SYSTEM ANION GAP 11 9 - 20 mEq/L INTERFACE SYSTEM OSMOLALITY, CALCULATED 294 275 - 295 mOsm/Kg INTERFACE SYSTEM 01/12/2007 6:55 PM CDT Adeel S Gregory DO CHEMISTRY ORDERABLES Edited Performing Organization Address City/[facility] de Phone Number INTERFACE SYSTEM Refer to clinic/hospital department * (ABNORMAL) CK TOTAL, RELATIVE INDEX (01/12/2007 6:55 PM CDT) CK-MB CHEMICAL INDEX 4.6(H) 0.0 - 4.5 INTERFACE SYSTEM 01/12/2007 6:55 PM CDT us Gracia Hayes MD CHEMISTRY ORDERABLES Edite d Performing Organization Address [facility] Phone Number INTERFACE SYSTEM Refer to clinic/hospital department * (ABNORMAL) CK (01/12/2007 6:55 PM CDT) CK 396(H) 26 - 140 U/L INTERFACE SYSTEM Comment: As of 05 the [facility] has changed testing methods. The new reference ranges are Males 38-174 Females 26-140 The old referance ranges were Males 0-155 Females 0-133 01/12/2007 6:55 PM CDT us Gracia Hayes MD CHEMISTRY ORDERABLES Edite d Performing Organization Address [facility] Phone Number INTERFACE SYSTEM Refer to clinic/hospital department * (ABNORMAL) CARDIAC ENZYMES (01/12/2007 6:55 PM CDT) TROPONIN I 0.6 0.0 - 1.5 ng/mL INTERFACE SYSTEM CKMB 18.1(H) 0.0 - 5.0 ng/mL INTERFACE SYSTEM 01/12/2007 6:55 PM CDT us Gracia Hayes MD CHEMISTRY ORDERABLES Edite d Performing Organization Address [facility] Phone Number INTERFACE SYSTEM Refer to clinic/hospital department * (ABNORMAL) POC ISTAT EG 7+ (01/12/2007 5:50 PM CDT) SPECIMEN TYPE Arterial INTERF KRAIG SYSTEM Comment: Sample not collected by [facility] Hemoglobin calculated from Hematocrit result FIO2 100 INTERFACE SYSTEM TEMPERATURE 34.8 DegC INTERFAC E SYSTEM PH 7.28(L) 7.35 - 7.45 Unit INTERFACE SYSTEM PH TEMP CORRECT 7.31(L) 7.35 - 7.45 Unit INTERFACE SYSTEM PCO2 POC 46(H) 35 - 45 mmHg INTERFACE SYSTEM PCO2 TEMP CORRECT 42 35 - 45 mmHg INTERFACE SYSTEM PO2 422(H) 80 - 105 mmHg INTERFACE SYSTEM PO2 TEMP CORRECT 409(H) 80 - 105 mmHg INTERFACE SYSTEM HCO3 (CALC) POC 21.6(L) 22.0 - 26.0 mmol/l INTERFACE SYSTEM BASE EXCESS -5(L) -2 - 3 mmol/l INTERFACE SYSTEM HEMOGLOBIN POC 8.5 3 g/dL 12.0 - 16.0 g/dL INTERFACE SYSTEM HEMATOCRIT ABG 25(L) 38 - 51 % INTER FACE SYSTEM O2 SATURATION 100(H) 95 - 98 % INTERF KRAIG SYSTEM TCO2 (CALC) POC 23 23 - 27 mmol/l INTERFACE SYSTEM SODIUM 141 138 - 146 mEq/L INTERFACE SYSTEM POTASSIUM 4.1 3.5 - 4.9 mEq/L INTERFACE SYSTEM CALCIUM IONIZED 1.52(H) 1.12 - 1.32 mmol/l INTERFACE SYSTEM 01/12/2007 5:50 PM CDT us Adeel Jenkins DO POINT OF CARE TESTING COM Edit ed INTERFACE SYSTEM Refer to clinic/hospital department * (ABNORMAL) PT AND APTT (01/12/2007 5:29 PM CDT) PROTIME 28.6(H) 13.0 - 15.7 Secs INTERFACE SYSTEM Comment: As of 06 note change in normal range. INR 2.5 INTERFACE SYSTEM Comment: Expected Values for INR: DVT/PE Goal INR 2.5; range 2.0 - 3.0 Valve Replacement Tissue Goal INR 2.5; range 2.0 - 3.0 Mechanical Goal INR 3.0; range 2.5 - 3.5 POST-TX Goal INR 2.5; range 2.0 - 3.0 or Goal 3.0; range 2.5 - 3.5 Atrial Fibrillation Goal INR 2.5; range 2.0 - 3.0 Ischemic Stroke Goal INR 2.5; range 2.0 - 3.0 For additional information see Guidelines for Anticoagulation available from the pharmacy Johanny Frank PTT 69.9(H) 21.6 - 35.6 Secs INTERFACE SYSTEM Comment: Therapeutic Range: Hi-level PE/DVT heparin protocol 80.1 -95.0 sec Lo-level PE/DVT heparin protocol 67.1 - 80.0 sec Cardiac Heparin Protocol 67.1 - 85.0 sec Neuro Heparin Protocol 67.1 - 80.0 sec As of 08/29/2006 note change in APTT Normal Range. 01/12/2007 5:29 PM CDT Adeel Jenkins DO HEMATOLOGY ORDERABLES Edited INTERFACE SYSTEM Refer to clinic/hospital department * (ABNORMAL) POC ISTAT EG 7+ (01/12/2007 5:20 PM CDT) SPECIMEN TYPE Arterial INTERF KRAIG SYSTEM Comment: Critical result performed at the point of care. Sample not collected by [facility] Hemoglobin calculated from Hematocrit result FIO2 100 INTERFACE SYSTEM TEMPERATURE 35.2 DegC INTERFAC E SYSTEM PH 7.08(AA) 7.35 - 7.45 Unit INTERFACE SYSTEM PH TEMP CORRECT 7.10(AA) 7.35 - 7.45 Unit INTERFACE SYSTEM PCO2 POC 47(H) 35 - 45 mmHg INTERFACE SYSTEM PCO2 TEMP CORRECT 44 35 - 45 mmHg INTERFACE SYSTEM PO2 453(H) 80 - 105 mmHg INTERFACE SYSTEM PO2 TEMP CORRECT 442(H) 80 - 105 mmHg INTERFACE SYSTEM HCO3 (CALC) POC 14.0(L) 22.0 - 26.0 mmol/l INTERFACE SYSTEM BASE EXCESS -16(L) -2 - 3 mmol/l INTERFACE SYSTEM HEMOGLOBIN POC 5.8 3 g/dL 12.0 - 16.0 g/dL INTERFACE SYSTEM HEMATOCRIT ABG 17(AA) 38 - 51 % INTER FACE SYSTEM O2 SATURATION 100(H) 95 - 98 % INTERF KRAIG SYSTEM TCO2 (CALC) POC 15(L) 23 - 27 mmol/l INTERFACE SYSTEM SODIUM 136(L) 138 - 146 mEq/L INTERFACE SYSTEM POTASSIUM 6.9(AA) 3.5 - 4.9 mEq/L INTERFACE SYSTEM CALCIUM IONIZED 0.89(L) 1.12 - 1.32 mmol/l INTERFACE SYSTEM 01/12/2007 5:20 PM CDT Adeel Jenkins DO POINT OF CARE TESTING COM Edit ed INTERFACE SYSTEM Refer to clinic/hospital department * (ABNORMAL) CBC WITHOUT DIFFERENTIAL (01/12/2007 4:38 PM CDT) WBC 18.9(H) 4.8 - 10.8 K/ul INTERFACE SYSTEM RBC 1.60(L) 4.20 - 5.40 Mil/ul INTERFACE SYSTEM HEMOGLOBIN 4.7(AA) 12.0 - 16.0 g/dL INTERFACE SYSTEM Comment: Potentially critical/toxic HGB called by JULIEN Hirsch _MERRILL, with verbal read back, at 01/12/2007 16:45_. WAS RECHECKED ON SAME TUBE. HEMATOCRIT 14.0(L) 36.0 - 46.0 % INTERFACE SYSTEM MCV 87.5 84.0 - 103.0 Fl INTERFACE SYSTEM MCH 29.4 27.0 - 34.0 pg INTERFACE SYSTEM MCHC 33.6 30.0 - 35.0 g/dL INTERFACE SYSTEM RDW 14.6(H) 11.0 - 14.5 % INTERFACE SYSTEM PLATELETS 113(L) 140 - 440 K/ul INTERFACE SYSTEM MPV 8.8(L) 8.9 - 12.8 Fl INTERFACE SYSTEM NEUTROPHILS 83.4(H) 42.2 - 75.2 % INTERFACE SYSTEM LYMPHOCYTES 12.4(L) 24.0 - 44.0 % INTERFACE SYSTEM MONOCYTES 3.7 2.0 - 10.0 % INTERFA CE SYSTEM EOSINOPHILS 0.1 0.0 - 7.0 % INTERF KRAIG SYSTEM BASOPHILS 0.4 0.0 - 1.0 % INTERFAC E SYSTEM NEUTROPHIL ABSOLUTE 15.8(H) 2.0 - 8.0 K/ul INTERFACE SYSTEM LYMPHOCYTE ABSOLUTE 2.4 1.2 - 4.0 K/ul INTERFACE SYSTEM MONOCYTE ABSOLUTE 0.7(H) 0.1 - 0.6 K/ul INTERFACE SYSTEM EOSINOPHIL ABSOLUTE 0.0 0.0 - 0.7 K/ul INTERFACE SYSTEM BASOPHILS ABSOLUTE 0.1 0.0 - 0.2 K/ul INTERFACE SYSTEM HEM COMMENT Smear Reviewed Automated Diff INTERFACE SYSTEM 01/12/2007 4:38 PM CDT Adeel Jenkins DO HEMATOLOGY ORDERABLES Edited Performing Organization Address [facility] Phone Number INTERFACE SYSTEM Refer to clinic/hospital department * (ABNORMAL) URINALYSIS MICROSCOPY ONLY (01/12/2007 4:03 PM CDT) WBC URINE 0-2 0 - 2 INTERFACE SYSTEM RBC UA 0-2 0 - 2 INTERFACE SYSTEM HYALINE CAST 0-2 0 - 2 INTERFA CE SYSTEM BACTERIA UA Few(A) None Seen INTERFAC E SYSTEM 01/12/2007 4:03 PM CDT Adeel Jenkins DO URINE ORDERABLES Edited Performing Organization Address [facility] Phone Number INTERFACE SYSTEM Refer to clinic/hospital department * (ABNORMAL) URINALYSIS (01/12/2007 4:03 PM CDT) COLOR UA Yellow Straw INTERFACE SYSTEM CLARITY UA Clear Clear INTERFACE SYSTEM LEUKOCYTE ESTERASE UA NEGATIVE NEGATIVE INTERFACE SYSTEM NITRITE UA NEGATIVE NEGATIVE INTERFACE SYSTEM PH UA 5.5 5.0 - 9.0 INTERFACE SYSTEM PROTEIN UA 30 mg/dl(A) NEGATIVE INTERFA CE SYSTEM GLUCOSE UA NEGATIVE NEGATIVE INTERFACE SYSTEM KETONES UA NEGATIVE NEGATIVE INTERFACE SYSTEM UROBILINOGEN UA 0.2 0.2 INTE RFACE SYSTEM BILIRUBIN UA NEGATIVE NEGATIVE INTERFA CE SYSTEM BLOOD UA Trace(A) NEGATIVE INTERFACE SYSTEM SPECIFIC GRAVITY UA 1.010 1.005 - 1.030 INTERFACE SYSTEM MICRO EXAM Yes(A) No INTERFACE SYSTEM 01/12/2007 4:03 PM CDT Adeel Jenkins DO URINE ORDERABLES Edited Performing Organization Address [facility] de Phone Number INTERFACE SYSTEM Refer to clinic/hospital department * (ABNORMAL) PTT (01/12/2007 3:58 PM CDT) PTT 38.8(H) 21.6 - 35.6 Secs INTERFACE SYSTEM Comment: Therapeutic Range: Hi-level PE/DVT heparin protocol 80.1 -95.0 sec Lo-level PE/DVT heparin protocol 67.1 - 80.0 sec Cardiac Heparin Protocol 67.1 - 85.0 sec Neuro Heparin Protocol 67.1 - 80.0 sec As of 08/29/2006 note change in APTT Normal Range. 01/12/2007 3:58 PM CDT [facility] Esvin Gregory HEMATOLOGY ORDERABLES Edited Performing Organization Address [facility] de Phone Number INTERFACE SYSTEM Refer to clinic/hospital department * (ABNORMAL) PROTIME-INR (01/12/2007 3:58 PM CDT) PROTIME 20.6(H) 13.0 - 15.7 Secs INTERFACE SYSTEM Comment: As of 06 note change in normal range. INR 1.6 INTERFACE SYSTEM Comment: Expected Values for INR: DVT/PE Goal INR 2.5; range 2.0 - 3.0 Valve Replacement Tissue Goal INR 2.5; range 2.0 - 3.0 Mechanical Goal INR 3.0; range 2.5 - 3.5 POST-TX Goal INR 2.5; range 2.0 - 3.0 or Goal 3.0; range 2.5 - 3.5 Atrial Fibrillation Goal INR 2.5; range 2.0 - 3.0 Ischemic Stroke Goal INR 2.5; range 2.0 - 3.0 For additional information see Guidelines for Anticoagulation available from the pharmacy Johanny Frank. 01/12/2007 3:58 PM CDT [facility] (formerly [facility]) Esvin Gregory HEMATOLOGY ORDERABLES Edited Performing Organization Address [facility] de Phone Number INTERFACE SYSTEM Refer to clinic/hospital department * (ABNORMAL) BASIC METABOLIC PANEL (01/12/2007 3:44 PM CDT) GLUCOSE 170(H) 70 - 110 mg/dL INTERFACE SYSTEM BUN 16 7 - 17 mg/dL INTERFACE SYSTEM CREATININE 1.1 0.7 - 1.2 mg/dL INTERFACE SYSTEM SODIUM 140 136 - 145 mEq/L INTERFACE SYSTEM POTASSIUM 4.7 3.5 - 5.0 mEq/L INTERFACE SYSTEM CHLORIDE 110 95 - 110 mEq/L INTERFACE SYSTEM CO2 21(L) 22 - 32 mmol/l INTERFACE SYSTEM CALCIUM 7.2(L) 8.4 - 10.5 mg/dL INTERFACE SYSTEM ANION GAP 14 9 - 20 mEq/L INTERFACE SYSTEM OSMOLALITY, CALCULATED 294 275 - 295 mOsm/Kg INTERFACE SYSTEM 01/12/2007 3:44 PM CDT Adeel Jenkins DO CHEMISTRY ORDERABLES Edited Performing Organization Address City/[facility] de Phone Number INTERFACE SYSTEM Refer to clinic/hospital department * (ABNORMAL) PT AND APTT (01/12/2007 2:34 PM CDT) PROTIME 23.2(H) 13.0 - 15.7 Secs INTERFACE SYSTEM Comment: As of 06 note change in normal range. INR 1.9 INTERFACE SYSTEM Comment: Expected Values for INR: DVT/PE Goal INR 2.5; range 2.0 - 3.0 Valve Replacement Tissue Goal INR 2.5; range 2.0 - 3.0 Mechanical Goal INR 3.0; range 2.5 - 3.5 POST-TX Goal INR 2.5; range 2.0 - 3.0 or Goal 3.0; range 2.5 - 3.5 Atrial Fibrillation Goal INR 2.5; range 2.0 - 3.0 Ischemic Stroke Goal INR 2.5; range 2.0 - 3.0 For additional information see Guidelines for Anticoagulation available from the pharmacy Johanny Frank PTT 36.6(H) 21.6 - 35.6 Secs INTERFACE SYSTEM Comment: Therapeutic Range: Hi-level PE/DVT heparin protocol 80.1 -95.0 sec Lo-level PE/DVT heparin protocol 67.1 - 80.0 sec Cardiac Heparin Protocol 67.1 - 85.0 sec Neuro Heparin Protocol 67.1 - 80.0 sec As of 08/29/2006 note change in APTT Normal Range. 01/12/2007 2:34 PM CDT Adeel Jenkins DO HEMATOLOGY ORDERABLES Edited Performing Organization Address [facility] Co de Phone Number INTERFACE SYSTEM Refer to clinic/hospital department * (ABNORMAL) DIFFERENTIAL, MANUAL (01/12/2007 2:34 PM CDT) NEUTROPHILS, SEG 84(H) 36 - 66 % INT ERFACE SYSTEM BANDS 2 0 - 6 % INTERFACE SYSTEM LYMPHOCYTES 10(L) 24 - 44 % INTERFAC E SYSTEM MONOCYTE 1(L) 4 - 10 % INTERFACE SYSTEM MYELOCYTES 3(H) <=1 % INTERFACE SYSTEM PLATELET EST. Normal Normal INTERF KRAIG SYSTEM RBC MORPHOLOGY Abnormal(A ) Normal INTERFACE SYSTEM POIKILOCYTES 1+(A) None Seen INTERFA CE SYSTEM KIRBY CELLS 1+ None Seen INTERFACE SYSTEM POLYCHROMASIA 1+(A) None Seen INTERF KRAIG SYSTEM 01/12/2007 2:34 PM CDT [employer] HEMATOLOGY ORDERABLES COM Edit ed INTERFACE SYSTEM Refer to clinic/hospital department * (ABNORMAL) CBC WITH DIFFERENTIAL (01/12/2007 2:34 PM CDT) WBC 30.7(H) 4.8 - 10.8 K/ul INTERFACE SYSTEM RBC 3.71(L) 4.20 - 5.40 Mil/ul INTERFACE SYSTEM HEMOGLOBIN 11.2(L) 12.0 - 16.0 g/dL INTERFACE SYSTEM HEMATOCRIT 32.9(L) 36.0 - 46.0 % INTERFACE SYSTEM MCV 88.7 84.0 - 103.0 Fl INTERFACE SYSTEM MCH 30.2 27.0 - 34.0 pg INTERFACE SYSTEM MCHC 34.0 30.0 - 35.0 g/dL INTERFACE SYSTEM RDW 14.2 11.0 - 14.5 % INTERFACE SYSTEM PLATELETS 164 140 - 440 K/ul INTERFACE SYSTEM MPV 8.7(L) 8.9 - 12.8 Fl INTERFACE SYSTEM 01/12/2007 2:34 PM CDT [employer] HEMATOLOGY ORDERABLES Edited Performing Organization Address City/[facility]/ZIP Co de Phone Number INTERFACE SYSTEM Refer to clinic/hospital department * XR FOOT 3+ VW LEFT (01/12/2007 11:26 AM CDT) Anatomical Region Laterality Modality Ankle / Foot Other 01/12/2007 11:2 6 AM CDT Narrative 01/12/2007 11:26 AM CDT Exam: Foot - Left ([id number])Date/Time of Exam: Jan 15, 2007 12:05:13 PMIndication: Please see order comments. Anemia. Comparison: None. Findings: Two views of the left foot demonstrate a probable old fracture deformity of the fifthmetatarsal os tibiale externum is present. Calcification within the region of the plantar fascia isidentified suggesting prior plantar fascial injury. IMPRESSION: 1. Probable old fifth metatarsal fracture deformity. 2. 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 3. Calcification within the region of the plantar fascia suggesting prior plantar fascia insult. - Dictated By: Geri Mandel M.D. Electronically Signed By: Geri Mandel M.D. Date Signed: 01/15/07 Procedure Note 08/13/2009 Exam: Foot - Left ([id number])Date/Time of Exam: Jan 15, 2007 12:05:13 PMIndication: Please see order comments. Anemia. Comparison: None. Findings: Two views of the left foot demonstrate a probable old fracture deformityof the fifthmetatarsal os tibiale externum is present. Calcification within the region of theplantar fascia isidentified suggesting prior plantar fascial injury. IMPRESSION: 1. Probable old fifth metatarsal fracture deformity. 2. 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 3. Calcification within the region of the plantar fascia suggesting priorplantar fascia insult. - Dictated By: Geri Mandel M.D. Electronically Signed By: Geri Mandel M.D. Date Signed: 01/15/07 Antonio Lopez MD DIAGNOSTIC IMAGING ORDERABLES Final Result * XR LUMBAR SPINE 1 VW (01/12/2007 11:26 AM CDT) Anatomical Region Laterality Modality Spine Other 01/12/2007 11:2 6 AM CDT Narrative 01/12/2007 11:26 AM CDT Crosstable lateral lumbar spine x2. Findings: The disc arthroplasty at L4-L5 is unchanged in alignment from the postop study of 12/23/2006. The bone prosthetic interface shows no diastases. No subluxation at the L4-L5 level is noted. Impression: Intact disc prosthesis. - Dictated By: Nigel Barnett M.D. Electronically Signed By: Nigel Barnett M.D. Date Signed: 01/14/07 SDM Procedure Note 08/13/2009 Crosstable lateral lumbar spine x2. Findings: The disc arthroplasty at L4-L5 is unchanged in alignment from the postopstudy of 12/23/2006. The bone prosthetic interface shows no diastases. No subluxation at theL4-L5 level is noted. Impression: Intact disc prosthesis. - Dictated By: Nigel Barnett M.D. Electronically Signed By: Nigel Barnett M.D. Date Signed: 01/14/07 SDM Antonio Lopez MD DIAGNOSTIC IMAGING ORDERABLES Final Result * XR CHEST PA OR AP (01/12/2007 11:26 AM CDT) Anatomical Region Laterality Modality Chest Other 01/12/2007 11:2 6 AM CDT Narrative 01/12/2007 11:26 AM CDT Exam: Chest - Portable ([id number])Date/Time of Exam: Jan 13, 2007 3:58:28 AMIndication: Post-operative. Comparison: 01/12/2007 at 1901 hours. Findings: Endotracheal tube terminates 4.7 cm above the level the norberto. Nasogastric tube extends offthe inferior extent of the film below the level of the left hemidiaphragm. Right subclavian lineterminates in the right atrium. A poor inspiratory effort with increase in right infrahilaratelectasis versus infiltrate is seen. Persistent atelectasis versus infiltrates of the medial leftlung base is noted. No definite effusion or pneumothorax is identified. Multiple suture anchors ofthe left glenoid are present. Impression: 1. Increase in right infrahilar atelectasis versus infiltrate otherwise stable appearance of the chestin the light of varying technique and projection. - Dictated By: Geri Mandel M.D. Electronically Signed By: Geri Mandel M.D. Date Signed: 01/13/07 Procedure Note 08/13/2009 Exam: Chest - Portable ([id number])Date/Time of Exam: Jan 13, 2007 3:58:28 AMIndication: Post-operative. Comparison: 01/12/2007 at 1901 hours. Findings: Endotracheal tube terminates 4.7 cm above the level the norberto.Nasogastric tube extends offthe inferior extent of the film below the level of the left hemidiaphragm. Rightsubclavian lineterminates in the right atrium. A poor inspiratory effort with increase in rightinfrahilaratelectasis versus infiltrate is seen. Persistent atelectasis versus infiltrates of the medial leftlungbase is noted. No definite effusion or pneumothorax is identified. Multiple suture anchors oftheleft glenoid are present. Impression: 1. Increase in right infrahilar atelectasis versus infiltrate otherwisestable appearance of the chestin the light of varying technique and projection. - Dictated By: Geri Mandel M.D. Electronically Signed By: Geri Mandel M.D. Date Signed: 01/13/07 Adeel Jenkins DO DIAGNOSTIC IMAGING ORDERABLES Final Result * XR CHEST PA OR AP (01/12/2007 11:26 AM CDT) Anatomical Region Laterality Modality Chest Other 01/12/2007 11:2 6 AM CDT Narrative 01/12/2007 11:26 AM CDT Portable view of the chest was obtained and compared to exam from 01/12/2007. Heart size is normal. Mediastinum is unremarkable. ET tube is well positioned. Tip of the right subclavian line is in theright atrium. Tip of the NG tube is in the gastric antrum. Lungs appear clear. - Dictated By: Seth Pepe M.D. Electronically Signed By: Seth Pepe M.D. Date Signed: 01/12/07 Procedure Note 08/13/2009 Portable view of the chest was obtained and compared to exam from01/12/2007. Heart size is normal. Mediastinum is unremarkable. ET tube is well positioned. Tip of the rightsubclavian line is in theright atrium. Tip of the NG tube is in the gastric antrum. Lungs appear clear. - Dictated By: Seth Pepe M.D. Electronically Signed By: Seth Pepe M.D. Date Signed: 01/12/07 Adeel Jenkins DO DIAGNOSTIC IMAGING ORDERABLES Final Result * CT CHEST ABDOMEN PELVIS W CONT (01/12/2007 11:26 AM CDT) Anatomical Region Laterality Modality Chest Other 01/12/2007 11:2 6 AM CDT Narrative 01/12/2007 11:[address] OF THE CHEST, ABDOMEN AND PELVIS, 01/12/07. HISTORY: Syncope. FINDINGS: The exam was performed utilizing 100 mL of Optiray-240 administered intravenously. No oldstudies available for comparison. Right subclavian central line extends into the right atrium. There are low lung volumes. There is bilateral prominence of bronchovascular markings withperipheral reticulation and additional areas of ill-defined ground glass and ill-defined nodularopacity of the right upper lobe (image 23). Posterior subpleural opacities are at least partiallyrelated to dependent change. No pleural effusion evident. Small pericardial effusion. No thoracicadenopathy. There is a lower anterior midline abdominal wound inferior to the umbilicus. Within thesubcutaneous fat at the level of the wound there is a 2.4 cm fluid collection on image 88. There ismoderate abdominal ascites, predominately perihepatic. Within the perihepatic ascites there arebandlike areas of increased attenuation. There are also multiple complex lobulated intermediateattenuation structures inferior to the left hepatic lobe and extending along the gastrohepaticligament both anterior and posterior to the stomach. Rounded complex structure medial to theproximal gastric body likely represents hematoma. Heterogeneous material extends cranially to theGE junction. Liver is normal in size. Ill-defined low attenuation adjacent to the falciformligament is suggestive of focal fatty infiltration. The spleen is normal in size with multifocalhypodensities at least partially related to phase of contrast enhancement. The gallbladder isunremarkable. The pancreas and adrenals are within normal limits. No significant renal pathology. IVC filter is in place. L4-L5 disc prosthesis is present. Carter catheter is present in the bladder. Findings suggestive of prior hysterectomy. Diverticular disease of the colon. IMPRESSION: Lobulated intermediate attenuation material consistent with a hematoma adjacent to theleft hepatic lobe and proximal stomach without discrete source identified. Hemoperitoneum. Diverticular disease of the colon. Features consistent with recent prior anterior approach lowerlumbar spine surgery. Nonspecific pulmonary opacities given low lung volumes and respiratoryartifact. Other minor findings as above. Case discussed with Dr. Jenkins. - Dictated By: Merrill Garcia M.D. Electronically Signed By: Merrill Garcia M.D. Date Signed: 01/12/07 GRB Procedure Note 08/13/2009 CT OF THE CHEST, ABDOMEN AND PELVIS, 01/12/07. HISTORY: Syncope. FINDINGS: The exam was performed utilizing 100 mL of Optiray-240 administeredintravenously. No oldstudies available for comparison. Right subclavian central line extends into theright atrium. There are low lung volumes. There is bilateral prominence ofbronchovascular markings withperipheral reticulation and additional areas of ill-defined ground glass andill-defined nodularopacity of the right upper lobe (image 23). Posterior subpleural opacities are at leastpartiallyrelated to dependent change. No pleural effusion evident. Small pericardial effusion. Nothoracicadenopathy. There is a lower anterior midline abdominal wound inferior to the umbilicus. Withinthesubcutaneous fat at the level of the wound there is a 2.4 cm fluid collection on image 88. There ismoderateabdominal ascites, predominately perihepatic. Within the perihepatic ascites therearebandlike areas of increased attenuation. There are also multiple complex lobulatedintermediateattenuation structures inferior to the left hepatic lobe and extending along the gastrohepaticligament bothanterior and posterior to the stomach. Rounded complex structure medial to theproximal gastric bodylikely represents hematoma. Heterogeneous material extends cranially to theGE junction. Liver isnormal in size. Ill-defined low attenuation adjacent to the falciformligament is suggestive of focal fattyinfiltration. The spleen is normal in size with multifocalhypodensities at least partially related tophase of contrast enhancement. The gallbladder isunremarkable. The pancreas and adrenals are withinnormal limits. No significant renal pathology. IVC filter is in place. L4-L5 disc prosthesis is present. Carter catheteris present in the bladder. Findings suggestive of prior hysterectomy. Diverticular disease of thecolon. IMPRESSION: Lobulated intermediate attenuation material consistent with a hematomaadjacent to theleft hepatic lobe and proximal stomach without discrete source identified. Hemoperitoneum. Diverticular disease of the colon. Features consistent with recent prioranterior approach lowerlumbar spine surgery. Nonspecific pulmonary opacities given low lung volumes andrespiratoryartifact. Other minor findings as above. Case discussed with Dr. Jenkins. - Dictated By: Merrill Garcia M.D. Electronically Signed By: Merrill Garcia M.D. Date Signed: 01/12/07 GRB us Gracia Hayes MD CT ORDERABLES Final Resu lt * CT HEAD WO CONTRAST (01/12/2007 11:26 AM CDT) Anatomical Region Laterality Modality Head Other 01/12/2007 11:2 6 AM CDT Narrative 01/12/2007 11:[address] HEAD WITHOUT CONTRAST, 01/12/07. HISTORY: Syncope. FINDINGS: Comparison made with MRI dated 12/12/2005. Compared with the prior exam, there are areas ofbilateral cerebellar, left greater than right hypodensity and left basal ganglia hypodensityconsistent with remote ischemic lesions. No acute intracranial pathology seen. No mass-effect orintracranial hemorrhage evident. Dependent material is present in the left maxillary sinus, some ofwhich approximates an air-fluid level. IMPRESSION: No acute intracranial pathology. 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 Left maxillary sinusitis. - Dictated By: Merrill Garcia M.D. Electronically Signed By: Merrill Garcia M.D. Date Signed: 01/12/07 GRB Procedure Note 08/13/2009 CT HEAD WITHOUT CONTRAST, 01/12/07. HISTORY: Syncope. FINDINGS: Comparison made with MRI dated 12/12/2005. Compared with the prior exam,there are areas ofbilateral cerebellar, left greater than right hypodensity and left basal gangliahypodensityconsistent with remote ischemic lesions. No acute intracranial pathology seen. No mass- effectorintracranial hemorrhage evident. Dependent material is present in the left maxillary sinus, some ofwhichapproximates an air-fluid level. IMPRESSION: No acute intracranial pathology. Old left basal ganglia and cerebellarischemic lesions asseen on MRI of 12/12/05. Left maxillary sinusitis. - Dictated By: Merrill Garcia M.D. Electronically Signed By: Merrill Garcia M.D. Date Signed: 01/12/07 GRB us Gracia Hayes MD CT ORDERABLES Final Resu lt * XR CHEST PA OR AP (01/12/2007 11:26 AM CDT) Anatomical Region Laterality Modality Chest Other 01/12/2007 11:2 6 AM CDT Narrative 01/12/2007 11:26 AM CDT EXAM: CHEST - PORTABLE ([id number])DATE/TIME OF EXAM: January 12, 2007 11:20:03 AMINDICATION: Check tube placement. FINDINGS: Right subclavian central line tip is projected over the right atrium. No pneumothorax orother acute pulmonary disease evident. Mild prominence of bronchovascular markings and mildelevation of the right hemidiaphragm are present. No pleural effusion. Evidence of prior leftshoulder surgery. IMPRESSION: Right central line tip in the RA. - Dictated By: Merrill Garcia M.D. Electronically Signed By: Merrill Garcia M.D. Date Signed: 01/12/07 GRB Procedure Note 08/13/2009 EXAM: CHEST - PORTABLE ([id number])DATE/TIME OF EXAM: January 12, 2007 11:20:03 AMINDICATION: Check tube placement. FINDINGS: Right subclavian central line tip is projected over the right atrium. Nopneumothorax orother acute pulmonary disease evident. Mild prominence of bronchovascular markings andmildelevation of the right hemidiaphragm are present. No pleural effusion. Evidence of priorleftshoulder surgery. IMPRESSION: Right central line tip in the RA. - Dictated By: Merrill Garcia M.D. Electronically Signed By: Merrill Garcia M.D. Date Signed: 01/12/07 GRB Gracia Hayes MD DIAGNOSTIC IMAGING ORDERAB LES Final Result * CARDIAC ENZYMES (01/12/2007 11:07 AM CDT) TROPONIN I 0.7 0.0 - 1.5 ng/mL INTERFACE SYSTEM CKMB 2.2 0.0 - 5.0 ng/mL INTERFACE SYSTEM 01/12/2007 11:0 7 AM CDT Gracia Hayes MD CHEMISTRY ORDERABLES Edite d INTERFACE SYSTEM Refer to clinic/hospital department * (ABNORMAL) COMPREHENSIVE METABOLIC PANEL (01/12/2007 11:07 AM CDT) GLOBULIN (CALC) 1.5(L) 2.4 - 3.9 g/dL INTERFACE SYSTEM ALBUMIN/GLOBULIN RATIO 1.7 1.0 - 2.3 INTERFACE SYSTEM GLUCOSE 397(H) 70 - 110 mg/dL INTERFACE SYSTEM BUN 16 7 - 17 mg/dL INTERFACE SYSTEM CREATININE 1.6(H) 0.7 - 1.2 mg/dL INTERFACE SYSTEM SODIUM 136 136 - 145 mEq/L INTERFACE SYSTEM POTASSIUM 4.2 3.5 - 5.0 mEq/L INTERFACE SYSTEM Comment:Specimen slightly he molyzed CHLORIDE 107 95 - 110 mEq/L INTERFACE SYSTEM CO2 13(L) 22 - 32 mmol/l INTERFACE SYSTEM CALCIUM 7.4(L) 8.4 - 10.5 mg/dL INTERFACE SYSTEM TOTAL PROTEIN 4.0(L) 6.3 - 8.2 g/dL INTERFACE SYSTEM ALBUMIN 2.5(L) 3.5 - 5.0 g/dL INTERFACE SYSTEM ALKALINE PHOSPHATASE 56 25 - 100 U/L INTERFACE SYSTEM AST 19 8 - 33 U/L INTERFACE SYSTEM ALT 9 4 - 36 IU/L INTERFACE SYSTEM BILIRUBIN TOTAL 0.2(L) 0.3 - 1.2 mg/dL INTERFACE SYSTEM ANION GAP 20 9 - 20 mEq/L INTERFACE SYSTEM OSMOLALITY, CALCULATED 299(H) 275 - 295 mOsm/Kg INTERFACE SYSTEM 01/12/2007 11:0 7 AM CDT us Gracia Hayes MD CHEMISTRY ORDERABLES Edite d Performing Organization Address City/[facility] Co de Phone Number INTERFACE SYSTEM Refer to clinic/hospital department * (ABNORMAL) PT AND APTT (01/12/2007 11:03 AM CDT) PTT 39.1(H) 21.6 - 35.6 Secs INTERFACE SYSTEM Comment: Therapeutic Range: Hi-level PE/DVT heparin protocol 80.1 -95.0 sec Lo-level PE/DVT heparin protocol 67.1 - 80.0 sec Cardiac Heparin Protocol 67.1 - 85.0 sec Neuro Heparin Protocol 67.1 - 80.0 sec As of 08/29/2006 note change in APTT Normal Range. PROTIME 54.6(H) 13.0 - 15.7 Secs INTERFACE SYSTEM Comment: As of 06 note change in normal range. INR 5.9(AA) INTERFACE SYSTEM Comment: Expected Values for INR: DVT/PE Goal INR 2.5; range 2.0 - 3.0 Valve Replacement Tissue Goal INR 2.5; range 2.0 - 3.0 Mechanical Goal INR 3.0; range 2.5 - 3.5 POST-TX Goal INR 2.5; range 2.0 - 3.0 or Goal 3.0; range 2.5 - 3.5 Atrial Fibrillation Goal INR 2.5; range 2.0 - 3.0 Ischemic Stroke Goal INR 2.5; range 2.0 - 3.0 For additional information see Guidelines for Anticoagulation available from the pharmacy Faustina Tellez Pharm D. Potentially critical/toxic inr of 5.9 called by to MAYURI PARR, with verbal read back, at 01/12/2007 11:34. 01/12/2007 11:0 3 AM CDT Gracia Hayes MD HEMATOLOGY ORDERABLES Edit ed Performing Organization Address City/[facility] de Phone Number INTERFACE SYSTEM Refer to clinic/hospital department * (ABNORMAL) CBC WITH DIFFERENTIAL (01/12/2007 11:03 AM CDT) WBC 26.5(H) 4.8 - 10.8 K/ul INTERFACE SYSTEM RBC 2.32(L) 4.20 - 5.40 Mil/ul INTERFACE SYSTEM HEMOGLOBIN 6.8(L) 12.0 - 16.0 g/dL INTERFACE SYSTEM HEMATOCRIT 20.8(L) 36.0 - 46.0 % INTERFACE SYSTEM MCV 89.7 84.0 - 103.0 Fl INTERFACE SYSTEM MCH 29.3 27.0 - 34.0 pg INTERFACE SYSTEM MCHC 32.7 30.0 - 35.0 g/dL INTERFACE SYSTEM RDW 14.1 11.0 - 14.5 % INTERFACE SYSTEM PLATELETS 392 140 - 440 K/ul INTERFACE SYSTEM MPV 8.6(L) 8.9 - 12.8 Fl INTERFACE SYSTEM NEUTROPHILS 77.9(H) 42.2 - 75.2 % INTERFACE SYSTEM LYMPHOCYTES 17.9(L) 24.0 - 44.0 % INTERFACE SYSTEM MONOCYTES 3.4 2.0 - 10.0 % INTERFA CE SYSTEM EOSINOPHILS 0.3 0.0 - 7.0 % INTERF KRAGI SYSTEM BASOPHILS 0.5 0.0 - 1.0 % INTERFAC E SYSTEM NEUTROPHIL ABSOLUTE 20.7(H) 2.0 - 8.0 K/ul INTERFACE SYSTEM LYMPHOCYTE ABSOLUTE 4.7(H) 1.2 - 4.0 K/ul INTERFACE SYSTEM MONOCYTE ABSOLUTE 0.9(H) 0.1 - 0.6 K/ul INTERFACE SYSTEM EOSINOPHIL ABSOLUTE 0.1 0.0 - 0.7 K/ul INTERFACE SYSTEM BASOPHILS ABSOLUTE 0.1 0.0 - 0.2 K/ul INTERFACE SYSTEM PERIPHERAL BLOOD SMEAR REVIEW Smear Reviewed Automated Diff INTERFACE SYSTEM 01/12/2007 11:0 3 AM CDT us Gracia Hayes MD HEMATOLOGY ORDERABLES Edit ed INTERFACE SYSTEM Refer to clinic/hospital department * POC CREATININE (01/12/2007 11:01 AM CDT) Pathologist [facility] CREATININE POC 1.2 0.7 - 1.2 mg/dL INTERFACE SYSTEM 01/12/2007 11:0 1 AM CDT Adeel Jenkins DO POINT OF CARE TESTING Edited INTERFACE SYSTEM Refer to clinic/hospital department * (ABNORMAL) POC ISTAT 6 (01/12/2007 10:57 AM CDT) SODIUM POC 136 136 - 145 mEq/L INTERFACE SYSTEM POTASSIUM POC 4.0 3.5 - 5.0 mEq/L INTERFACE SYSTEM CHLORIDE POC 106 95 - 110 mEq/L INTERFACE SYSTEM GLUCOSE POC 382(H) 70 - 110 mg/dL INTERFACE SYSTEM BLOOD UREA NITROGEN POC 14 7 - 17 mg/dL INTERFACE SYSTEM HEMATOCRIT POC 18.0(L) 36.0 - 46.0 % INTERFACE SYSTEM HEMOGLOBIN POC 6.0(L) 12.0 - 16.0 g/dL INTERFACE SYSTEM 01/12/2007 10:5 7 AM CDT Adeel Jenkins DO POINT OF CARE TESTING Edited Performing Organization Address City/State/[facility] Co de Phone Number INTERFACE SYSTEM Refer to clinic/hospital department documented in this encounter Visit Diagnoses Diagnosis Poisoning by anticoagulants(964.2)- Primary Poisoning by anticoagulants documented in this encounter Care Teams Quality Assurance Inspector Relationship Specialty Start Date End Date Charles Delgadillo MD [address] [place] [id number] PCP - General Family Practice 09/05/10 documented as of this encounter
--- OUTSIDE RECORDS SUMMARY | 2025-09-18 01:34 | XMS_ITS | Encounter Summary ---
Author Organization [facility] Address [address] [place] [address] Care Team Providers Care Diploma Medical Assistant Name Role Phone Norman Caldera MD Primary Care Provider [phone] Encounter Details Date Type Department Care Team (Late st Contact Info) Description 08/15/2025 Results Follow-Up [facility] ([facility] Gastroenterology- [place] [address] [place] [address] La Hancock NP [address] [facility] [address] [place] [address] [place] ABDOMEN [employer] Social History Tobacco Use Types Packs/Day Years Used Date Smoking Tobacco: Never Smokeless Tobacco: Never Alcohol Use Standard [...] worry about transportation for future doctor visits, 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 No 2024 Housing Stability [...] on file Legal Sex Female 2:09 AM MINISTER Gender Identity Not on file Sexual Orientation Not on file documented as of this encounter Plan of Treatment Upcoming Encounters Date Type Department Care Team (Late st Contact Info) Description 11/16/2025 11:40 AM MINISTER Office Visit [facility] Family Medicine [place] [address] [phone] Norman Caldera MD [address] [phone] 02/01/2026 9:30 AM CDT Office Visit [facility] Gastroenterology- [place] [address] [place] [address] Deepthi Ray, DISTRICT ADMINISTRATIVE ASSISTANT [address] [facility] [address] [place] [address] documented as of this encounter [...] PALLAVI MYC HYPERTENSION CARE PLAN PROBLEM 4 Assessment Noted Time PHQ-9 Depression Total Score: 2 03/02/20 25 12:06 PM CDT documented as of this encounter Care Teams Diploma Medical Assistant Relationship Specialty Start Date End Date Norman Caldera MD [address] [place] [phone] PCP - General Family Practice 09/06/23 documented as of this encounter
--- OUTSIDE RECORDS SUMMARY | 2025-09-18 01:34 | XMS_ITS | Encounter Summary ---
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
--- OUTSIDE RECORDS SUMMARY | 2025-09-18 01:34 | XMS_ITS | Encounter Summary ---
Author Organization [facility] Address [address] 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
--- OUTSIDE RECORDS SUMMARY | 2025-09-18 01:34 | XMS_ITS | Encounter Summary ---
Author Organization [facility] Address [address] [place] [address] Care Team Providers Care Network Control Technician Name Role Phone Charles Delgadillo MD Primary Care Provider [phone] Encounter Details Date Type Department Care Team (Latest Contact Info) Description 09/28/1998 Outpatient Historical [facility] Olu Pineda Jr., MD [address] [place] [phone] Acute sinusitis, unspecified (Primary Dx) Social History Tobacco Use Types Packs/Day Years Used Date Smoking Tobacco: Never Assessed Comments Unknown Sex and Gender Information Value Date Recorded Sex Assigned at Not on file 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
--- OUTSIDE RECORDS SUMMARY | 2025-09-18 01:34 | XMS_ITS | Encounter Summary ---
Author Organization [facility] Address [address] [place] [address] Care Team Providers Care Aircraft Engineer Name Role Phone Charles Delgadillo MD Primary Care Provider [phone] Encounter Details Date Type Department Care Team (Late st Contact Info) Description 04/12/[address] 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
--- OUTSIDE RECORDS SUMMARY | 2025-09-18 01:34 | XMS_ITS | Encounter Summary ---
Author Organization [facility] Address [address] [place] [address] Care Team Providers Care Crm Analyst Name Role Phone Charles Delgadillo MD Primary Care Provider [phone] Encounter Details Date Type Department Care Team (Late [facility]) Description 10/17/2007 Outpatient Historical [facility] Orthopedics[address] [place] [address] Melvin Nunez MD NO ADDRESS ON FILE Social History Tobacco Use Types Packs/Day Years Used Date Smoking Tobacco: Never Assessed Comments Unknown Sex and Gender Information Value Date Recorded Sex Assigned at Not on file Legal Sex Female 5:59 AM PIANO TUNER Gender Identity Not on file Sexual Orientation Not on file documented as of this encounter Progress Notes * Melvin Nunez - 10/17/2007 12:00 AM CST [facility] [address] [place], [place] PATIENT NAME: Moira Mckinnon CHART #: [id number] DATE OF SERVICE: 10/17/2007 DATE OF : 1950 Patient Name: Moira Mckinnon DOS: 10/17/2007 : 1950 ORTHOPEDIC RECHECK For additional information regarding past medical history, present medications, allergies, completereview of systems, past surgical history, family history, and social history, please refer to the orthopedic health questionnaire completed by the patient which I have reviewed in detail this date. SUBJECTIVE: The patient returns for recheck post left ankle fracture, a distal fibula fracture. I did note she notes pain over the anterolateral ankle in the region of the ligamentous complex laterally, anterior talar fibula ligament area. She does also describe dysesthesias and pain in the left ankle. She has seen Dr. Lopez in the past, who performed back surgery, she states. At that time, shewas having left lower extremity symptoms. PHYSICAL EXAMINATION: On physical examination, she does have some mild tightness of the hamstrings and Achilles on the left. She has quite functional range of motion of the ankle and foot. RADIOGRAPHIC FINDINGS: She has x-rays obtained which reveal no acute bony abnormalities, left ankle. There is no evidence of nonunion or other problems at the distal fibula today. PLAN: I recommended hamstring stretches and Achilles stretches as well. In addition, I advised her to use an air stirrup splint. I suggested that she may benefit from referral back to the spine center as her current symptoms in the left ankle/foot do not appear to be related to the fracture per say. I would be concerned as to whether there may be some radicular component. Melvin Nunez M.D. [facility] Electronically Signed by Melvin Nunez M.D. 10/27/2007 08:34 , P, dmt Job #: Document #: [id number] cc: O TUNER documented in this encounter Procedure Notes * Melvin Nunez - 10/17/2007 12:00 AM CSTAssociated Order(s): IMAGING REPORT Patient Name: Moira Mckinnon Date: 10/17/2007 Chart Number: [id number] RADIOLOGY REPORT 1 1 Date: 10/17/2007 Patient Name: Moira Mckinnon : 1950 Requesting Physician: Melvin Nunez M.D. RADIOGRAPHIC FINDINGS: She has x-rays obtained which reveal no acute bony abnormalities, left ankle. There is no evidence of nonunion or other problems at the distal fibula today. Melvin Nunez M.D. [facility] Electronically Signed by Melvin Nunez M.D. 10/27/2007 08:34 , P dmt Job #: Document #: [id number] cc: (Not official until signed) O TUNER documented in this encounter Plan of Treatment Not on file documented as of this encounter Procedures Procedure Name Priority Date/Time Associated Diagnosis Comments IMAGING REPORT 10/27/2007 8:34 AM PIANO TUNER documented in this encounter Results * IMAGING REPORT (10/27/2007 8:34 AM PIANO TUNER) Narrative Transcriptions Melvin Nunez - 10/17/2007 12:00 AM CST Patient Name: Moira Mckinnon Date: 10/17/2007 Chart Number:[id number] RADIOLOGY REPORT 1 1 Date: 10/17/2007 Patient Name: Moira Mckinnon : 1950 Requesting Physician: Melvin Nunez M.D. RADIOGRAPHIC FINDINGS: She has x-rays obtained which reveal no acute bonyabnormalities, left ankle. There is no evidence of nonunion or otherproblems at the distal fibula today. Melvin Nunez M.D. [facility] Electronically Signed by Melvin Nunez M.D. 10/27/2007 08:34 , P dmt Job #: Document #: [id number] cc: (Not official until signed) Melvin Nunez MD DIAGNOSTIC IMAGING ORDERABLE S Final Result documented in this encounter Visit Diagnoses Not on filedocumented in this encounter Care Teams Crm Analyst Relationship Specialty Start Date End Date Charles Delgadillo MD [address] [place] [address] PCP - General Family Practice 09/05/10 documented as of this encounter
--- OUTSIDE RECORDS SUMMARY | 2025-09-18 01:34 | XMS_ITS | Encounter Summary ---
Author Organization [facility] Address [address] [place] [address] Care Team Providers Care Grades 9 12 Tutor Name Role Phone Charles Delgadillo MD Primary Care Provider [phone] Encounter Details Date Type Department Care Team (Late st Contact Info) Description 01/05/2008 Outpatient Historical [facility] [address] [place] [phone] Antonio Lopez MD [address] [place] [address] Social History Tobacco Use Types Packs/Day Years Used Date Smoking Tobacco: Never Assessed Comments Unknown Sex and Gender Information Value Date Recorded Sex Assigned at Not on file Legal Sex Female 5:59 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
--- OUTSIDE RECORDS SUMMARY | 2025-09-18 01:34 | XMS_ITS | Encounter Summary ---
Author Organization [facility] Address [address] [place] [address] Care Team Providers Care Exhibits Coordinator Name Role Phone Charles Delgadillo MD Primary Care Provider [phone] Encounter Details Date Type Department Care Team (Late st Contact Info) Description 10/30/2007 Outpatient Historical [facility] [address] [place] [address] Antonio Lopez MD [address] [place] [address] Social History Tobacco Use Types Packs/Day Years Used Date Smoking Tobacco: Never Assessed Comments Unknown Sex and Gender Information Value Date Recorded Sex Assigned at Not on file Legal Sex Female 5:59 AM SUPERVISOR ASSEMBLY STOCK Gender Identity Not on file Sexual Orientation Not on file documented as of this encounter Plan of Treatment Not on file documented as of this encounter Procedures Procedure Name Priority Date/Time Associated Diagnosis Comments VITAMIN B12 LEVEL Routine 11/19/2007 10: 23 AM SUPERVISOR ASSEMBLY STOCK CK Routine 11/19/2007 10:23 AM SUPERVISOR ASSEMBLY STOCK HEPATIC FUNCTION PANEL Routine 11/19/2007 10:23 AM SUPERVISOR ASSEMBLY STOCK documented in this encounter Results * VITAMIN B12 (11/19/2007 10:23 AM SUPERVISOR ASSEMBLY STOCK) VITAMIN B12 865 >242 PG/ML [facility] VITAMIN B12 (NOTE) DEFICIENT <175 PG/ML BORDERLINE 175-242 PG/ML INTERPRETATION: Up to 10% of adults in the borderline range may exhibit true cobalamin deficiency, with hematologic and/or neuropsychiatri c symptoms. Patients in the borderline range may therefore require additional clinical and/or laboratory study to exclude cobalamin deficiency. Very rarely, patients with true cobalamin deficiency may exhibit serum levels in the low end of the normal range(usually less than 400 pg/ml). [facility] 11/19/2007 10:2 3 AM SUPERVISOR ASSEMBLY STOCK 11/19/2007 10:24 AM SUPERVISOR ASSEMBLY STOCK us Roz Capellan MD CHEMISTRY ORDERABLES Final Resu lt Performing Organization Address City/[facility]/ZIP Co de Phone Number [facility] CLIA# [id number] [address] [place] [address] * (ABNORMAL) HEPATIC FUNCTION PANEL (11/19/2007 10:23 AM SUPERVISOR ASSEMBLY STOCK) TOTAL PROTEIN 7.1 5.9 - 8.2 G/DL [facility] ALBUMIN 4.6 3.4 - 4.8 G/DL [facility] AST 37(H) 12 - 32 IU/L [facility] ALT 72(H) 4 - 36 IU/L [facility] ALKALINE PHOSPHATASE 118(H) 35 - 104 IU/L [facility] BILIRUBIN TOTAL 0.2 0.2 - 1.0 MG/DL [facility] BILIRUBIN DIRECT <0.1 0.0 - 0.3 MG/DL [facility] 11/19/2007 10:2 3 AM SUPERVISOR ASSEMBLY STOCK 11/19/2007 10:24 AM SUPERVISOR ASSEMBLY STOCK us Roz Capellan MD CHEMISTRY ORDERABLES Final Resu lt [facility] CLIA# [id number] [address] [place] [address] * (ABNORMAL) CK (11/19/2007 10:23 AM SUPERVISOR ASSEMBLY STOCK) CK 178(H) 26 - 140 IU/L [facility] 11/19/2007 10:2 3 AM SUPERVISOR ASSEMBLY STOCK 11/19/2007 10:24 AM SUPERVISOR ASSEMBLY STOCK us Roz Capellan MD CHEMISTRY ORDERABLES Final Resu lt [facility] CLIA# [id number] [address] [place] [address] documented in this encounter Visit Diagnoses Not on filedocumented in this encounter Care Teams Exhibits Coordinator Relationship Specialty Start Date End Date Charles Delgadillo MD [address] [place] [address] PCP - General Family Practice 09/05/10 documented as of this encounter
--- OUTSIDE RECORDS SUMMARY | 2025-09-18 01:34 | XMS_ITS | Encounter Summary ---
Author Organization [facility] Address [address] [place] [address] Care Team Providers Care Field Operations Supervisor Name Role Phone Charles Delgadillo MD Primary Care Provider [phone] Encounter Details Date Type Department Care Team (Latest Contact Info) Description 12/26/1998 Outpatient [facility] Family Medicine [place] [address] [facility] [address] [place] [address] Thomas Anne MD [address] [address] Unspecified essential hypertension (Primary Dx); Myalgia and myositis, unspecified Social History Tobacco Use Types Packs/Day Years Used Date Smoking Tobacco: Never Assessed Comments Unknown Sex and Gender Information Value Date Recorded Sex Assigned at Not on file Legal Sex Female 5:59 AM 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
--- OUTSIDE RECORDS SUMMARY | 2025-09-18 01:34 | XMS_ITS | Encounter Summary ---
Author Organization [facility] Address [address] [facility] [place] [address] Care Team Providers Care Manager Line Name Role Phone Charles Delgadillo MD Primary Care Provider [phone] Encounter Details Date Type Department Care Team (Latest Contact Info) Description 07/29/1998 Outpatient Historical [facility] Jamaal Diaz NO ADDRESS ON FILE Acute sinusitis, unspecified (Primary Dx) Social History Tobacco Use Types Packs/Day Years Used Date Smoking Tobacco: Never Assessed Comments Unknown Sex and Gender Information Value Date Recorded Sex Assigned at Not on file Legal Sex Female 5:59 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
--- OUTSIDE RECORDS SUMMARY | 2025-09-18 01:34 | XMS_ITS | Encounter Summary ---
Author Organization [facility] Address [address] [place] [address] Care Team Providers Care Pouch Making Machine Operator Name Role Phone Charles Delgadillo MD Primary Care Provider Encounter Details Date Type Department Care Team (Late st Contact Info) Description 02/06/2010 Ancillary Orders [facility] Imaging External Read [address] [place] [phone] Roz Capellan MD [address] [place] [address] Screening Mammogram Social History Tobacco Use Types Packs/Day Years Used Date Smoking Tobacco: Never Alcohol Use Standard Drinks/Week Comments No 0 (1 standard drink = 0.6 oz pur e alcohol) Comments No Sex and Gender Information Value Date Recorded Sex Assigned at Not on file Legal Sex Female 5:59 AM INTERACTIVE MEDIA PROJECT MANAGER Gender Identity Not on file Sexual Orientation Not on file 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 Findings are stable. Yearly exams are recommended. *Addendum dictated on 03/21/10 Narrative 02/08/2010 9:54 AM CDT Bilateral Mammogram Reason for Exam: Screening Comparison: No prior exam(s) for comparison. Findings: Bilateral CC and MLO views were obtained. This examination was reviewed with the aid of a computer-aided detection system(CAD). The breast tissue density is average. Right breast nodularity is noted, comparison with priors maybe helpful. Prior films are not available at the time of this reading. We are attempting to retrieve those exams for comparison. Procedure Note Annemarie Duggan MD / Fernando White MD - 02/08/2010 Bilateral Mammogram Reason for Exam: Screening Comparison: No prior exam(s) for comparison. Findings: Bilateral CC and MLO views were obtained. This examination was reviewed with the aid of a computer-aided detectionsystem(CAD). The breast tissue density is average. Right breast nodularity is noted,comparison with priors maybe helpful. Prior films are not available atthe time of this reading. We are attempting to retrieve those exams forcomparison. us Roz Capellan MD MAMMO ORDERABLES Edited Result - Final documented in this encounter Visit Diagnoses Diagnosis Screening mammogram Other screening mammogram documented in this encounter Care Teams Pouch Making Machine Operator Relationship Specialty Start Date End Date Charles Delgadillo MD [address] [place] [address] PCP - General Family Practice 09/05/10 documented as of this encounter
--- OUTSIDE RECORDS SUMMARY | 2025-09-18 01:34 | XMS_ITS | Encounter Summary ---
Author Organization [facility] Address [address] [place] [address] Care Team Providers Care Cutter And Presser Name Role Phone Charles Delgadillo MD Primary Care Provider [phone] Encounter Details Date Type Department Care Team (Late st Contact Info) Description 10/22/2007 Outpatient Historical [facility] [address] [place] [phone] Antonio Lopez MD [address] [place] [address] Social History Tobacco Use Types Packs/Day Years Used Date Smoking Tobacco: Never Assessed Comments Unknown Sex and Gender Information Value Date Recorded Sex Assigned at Not on file Legal Sex Female 5:59 AM SUPERVISOR ROLLING ROOM Gender Identity Not on file Sexual Orientation Not on file documented as of this encounter Plan of Treatment Not on file documented as of this encounter Visit Diagnoses Not on filedocumented in this encounter Care Teams Cutter And Presser Relationship Specialty Start Date End Date Charles Delgadillo MD [address] [address] PCP - General Family Practice 09/05/10 documented as of this encounter
--- OUTSIDE RECORDS SUMMARY | 2025-09-18 01:34 | XMS_ITS | Encounter Summary ---
[facility] Address [address] [place] [address] Care Team Providers Care Sack Sewer Machine Name Role Phone Charles Delgadillo MD Primary Care Provider [phone] Encounter Details Date Type Department Care Team (Latest Contact Info) Description 04/08/2008 [facility] 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
--- OUTSIDE RECORDS SUMMARY | 2025-09-18 01:34 | XMS_ITS | Encounter Summary ---
Author Organization [facility] Address [address] [place] [address] Care Team Providers Care Water Treatment Plant Mechanic Name Role Phone Charles Delgadillo MD Primary Care Provider Encounter Details Date Type Department Care Team (Late st Contact Info) Description 09/27/2008 Emergency [facility] Emergency Department [address] 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 Not on file Not on file Not on file disabled Not on file Not on file Not on file documented as of this encounter Plan of Treatment Not on file documented as of this encounter Procedures Procedure Name Priority Date/Time Associated Diagnosis Comments CT ABDOMEN PELVIS W CONTRAST Routine 09/27/2008 7:18 PM PLANT DIRECTOR URINALYSIS MICROSCOPY ONLY Stat 09/27/2008 6:11 PM PLANT DIRECTOR URINALYSIS W/REFLEX MICROSCOPIC Stat 09/27/2008 6:11 PM PLANT DIRECTOR DIFFERENTIAL, MANUAL Stat 09/27/2008 5:37 PM PLANT DIRECTOR CBC WITH DIFFERENTIAL Stat 09/27/2008 5:37 PM PLANT DIRECTOR LIPASE Stat 09/27/2008 5:37 PM PLANT DIRECTOR COMPREHENSIVE METABOLIC PANEL Stat 09/27/2008 5:37 PM PLANT DIRECTOR documented in this encounter Results * CT ABDOMEN PELVIS W CONTRAST (09/27/2008 7:18 PM PLANT DIRECTOR) Anatomical Region Laterality Modality Abdomen Other 09/27/2008 7:18 PM PLANT DIRECTOR Narrative 09/27/2008 8:[address] of the abdomen and pelvis was performed after 75 mL Optiray 240 contrast. The prior exam is March 12, 2007. The patient is status post splenectomy. Probable residual splenic nodule is noted in the left upper abdomen on image 18. The tail of the pancreas is also high in the left upper abdomen and is unremarkable. This is noted since it has a lobular appearance. The pancreas is otherwise unremarkable. There is a filter in the inferior vena cava. The adrenal glands are normal in size and the gallbladder is fluid filled. The liver is homogeneous in density and there is no duct dilatation or mass. The lung bases are clear except for some linear atelectasis or dependent atelectasis. A small hiatal hernia is noted. The kidneys demonstrate symmetric enhancement. A small fat-filled umbilical hernia is noted. There are no thickened or dilated loops of bowel and there is no ileus or obstruction. There is no inguinal hernia and no adenopathy in the groin. The bladder is smooth in contour. Diverticula are noted in the sigmoid colon but no focal inflammatory changes of diverticulitis are identified. There is no abscess. Mild degenerative changes are noted in the spine and pelvis. Postoperative changes in the lower lumbar spine are noted. Prosthetic disc at L4-5 is noted. Impression: 1. 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 2. No inflammatory changes, free fluid or abscess. Diverticula are noted. - Dictated By: Flavia Kirkpatrick M.D. Electronically Signed By: Flavia Kirkpatrick M.D. Date Signed: 09/27/08 Procedure Note Flavia Kirkpatrick MD - 09/27/2008 CT of the abdomen and pelvis was performed after 75 mL Optiray 240contrast. The prior exam is March 12, 2007. The patient is status post splenectomy. Probable residual splenic noduleis noted in the left upper abdomen on image 18. The tail of the pancreas is also high in the leftupper abdomen and is unremarkable. This is noted since it has a lobular appearance. The pancreas isotherwise unremarkable. There is a filter in the inferior vena cava. The adrenal glands are normal in sizeand the gallbladder is fluid filled. The liver is homogeneous in density and there is no ductdilatation or mass. The lung bases are clear except for some linear atelectasis or dependent atelectasis. A smallhiatal hernia is noted. The kidneys demonstrate symmetric enhancement. A small fat-filled umbilicalhernia is noted. There are no thickened or dilated loops of bowel and there is no ileus or obstruction.There is no inguinal hernia and no adenopathy in the groin. The bladder is smooth in contour. Diverticulaare noted in the sigmoid colon but no focal inflammatory changes of diverticulitis are identified. Thereis no abscess. Mild degenerative changes are noted in the spine and pelvis. Postoperativechanges in the lower lumbar spine are noted. Prosthetic disc at L4-5 is noted. Impression: 1. 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 2. No inflammatory changes, free fluid or abscess. Diverticula arenoted. - Dictated By: Flavia Kirkpatrick M.D. Electronically Signed By: Flavia Kirkpatrick M.D. Date Signed: 09/27/08 us Olu Barrett DO CT ORDERABLES Final R esult * (ABNORMAL) URINALYSIS MICROSCOPY ONLY (09/27/2008 6:11 PM PLANT DIRECTOR) HYALINE CAST None Seen 0 - 2 [facility] BACTERIA UA Few(A) None Seen [facility] WBC URINE 0-2 0 - 2 [facility] RBC UA 0-2 0 - 2 [facility] Urine specimen (specimen) 09/27/2008 6:11 PM PLANT DIRECTOR 09/27/2008 6:16 PM PLANT DIRECTOR Olu Barrett DO URINE ORDERABLES Final Result Performing Organization Address [facility] Phone Number INTERFACE SYSTEM Refer to clinic/hospital department [facility] CLIA# [id number] [address] [place] [address] * (ABNORMAL) URINALYSIS (09/27/2008 6:11 PM PLANT DIRECTOR) NITRITE UA NEGATIVE NEGATIVE [facility] UROBILINOGEN UA 0.2 0.2 [facility] CLARITY UA Clear Clear [facility] SPECIFIC GRAVITY UA 1.025 <=1.005 [facility] GLUCOSE UA NEGATIVE NEGATIVE [facility] PH UA 5.5 5.0 - 9.0 [facility] BILIRUBIN UA NEGATIVE NEGATIVE [facility] LEUKOCYTE ESTERASE UA NEGATIVE NEGATIVE [facility] KETONES UA 15 mg/dl(A) NEGATIVE [facility] MICRO EXAM Yes(A) No [facility] COLOR UA Yellow Straw [facility] PROTEIN UA NEGATIVE NEGATIVE [facility] BLOOD UA NEGATIVE NEGATIVE [facility] Urine specimen (specimen) 09/27/2008 6:11 PM PLANT DIRECTOR 09/27/2008 6:16 PM PLANT DIRECTOR Olu Barrett DO URINE ORDERABLES Final Result Performing Organization Address [facility] [address] [facility] Phone Number INTERFACE SYSTEM Refer to clinic/hospital department [facility] CLIA# [id number] [address] [place] [address] * (ABNORMAL) DIFFERENTIAL, MANUAL (09/27/2008 5:37 PM PLANT DIRECTOR) ANISOCYTOSIS 1+(A) None Seen [facility] ATYPICAL LYMPHOCYTE 15(H) <=0 % [facility] Comment: REACTIVE LYMPHS PLATELET EST. Increased (A) Normal [facility] MONOCYTE 5 4 - 10 % [facility] BANDS 1 0 - 6 % [facility] RBC MORPHOLOGY Abnormal( A) Normal [facility] LYMPHOCYTES 31 24 - 44 % [facility] EOSINOPHILS 1 0 - 3 % [facility] NEUTROPHILS, SEG 47 36 - 66 % [facility] Blood specimen (specimen) 09/27/2008 5:37 PM PLANT DIRECTOR 09/27/2008 5:51 PM PLANT DIRECTOR Narrative INTERFACE SYSTEM - 09/27/2008 6:55 PM PLANT DIRECTOR Differential ordered by policy. lOu Barrett DO HEMATOLOGY ORDERABLES C OM Final Result INTERFACE SYSTEM Refer to clinic/hospital department [facility] CLIA# [id number] [address] [place] [address] * (ABNORMAL) CBC WITH DIFFERENTIAL (09/27/2008 5:37 PM PLANT DIRECTOR) RBC 5.20 4.20 - 5.40 Mil/ul [facility] MCHC 33.9 30.0 - 35.0 g/dL [facility] MCV 89.0 84.0 - 103.0 Fl [facility] MPV 9.7 8.9 - 12.8 Fl [facility] HEM COMMENT Smear Reviewed Automated Diff [facility] Comment: If lymphocytosis is persistent, suggest flow on blood. Interpreted by: Jumana Mejia HEMOGLOBIN 15.7 12.0 - 16.0 g/dL [facility] RDW 14.6(H) 11.0 - 14.5 % [facility] WBC 14.2(H) 4.8 - 10.8 K/ul [facility] MCH 30.2 27.0 - 34.0 pg [facility] HEMATOCRIT 46.3(H) 36.0 - 46.0 % [facility] PLATELETS 559(H) 140 - 440 K/ul [facility] Blood specimen (specimen) 09/27/2008 5:37 PM PLANT DIRECTOR 09/27/2008 5:51 PM PLANT DIRECTOR Olu Barrett DO HEMATOLOGY ORDERABLES E dited Performing Organization Address [facility] Phone Number INTERFACE SYSTEM Refer to clinic/hospital department [facility] CLIA# [id number] [address] [place] [address] * LIPASE (09/27/2008 5:37 PM PLANT DIRECTOR) [facility] LIPASE 36 6 - 51 U/L [facility] Blood specimen (specimen) 09/27/2008 5:37 PM PLANT DIRECTOR 09/27/2008 5:51 PM PLANT DIRECTOR Olu Barrett DO CHEMISTRY ORDERABLES Fi nal Result Performing Organization Address [facility] Phone Number INTERFACE SYSTEM Refer to clinic/hospital department [facility] CLIA# [id number] [facility] [place] [address] * (ABNORMAL) COMPREHENSIVE METABOLIC PANEL (09/27/2008 5:37 PM PLANT DIRECTOR) [facility] ANION GAP 14 9 - 20 mEq/L [facility] ALBUMIN 5.4(H) 3.5 - 5.0 g/dL [facility] CREATININE 1.1 0.7 - 1.2 mg/dL [facility] ALT 45(H) 4 - 36 IU/L [facility] CALCIUM 10.6(H) 8.4 - 10.5 mg/dL [facility] GLUCOSE 107 70 - 110 mg/dL [facility] ALKALINE PHOSPHATASE 92 25 - 100 U/L [facility] CHLORIDE 108 95 - 110 mEq/L [facility] OSMOLALITY, CALCULATED 296(H) 275 - 295 mOsm/Kg [facility] GLOBULIN (CALC) 3.3 2.4 - 3.9 g/dL [facility] TOTAL PROTEIN 8.7(H) 6.3 - 8.2 g/dL [facility] SODIUM 143 136 - 145 mEq/L [facility] BILIRUBIN TOTAL 0.3 0.3 - 1.2 mg/dL [facility] CO2 25 22 - 32 mmol/l [facility] BUN 20(H) 7 - 17 mg/dL [facility] AST 39(H) 8 - 33 U/L [facility] ALBUMIN/GLOBULIN RATIO 1.6 1.0 - 2.3 [facility] POTASSIUM 3.6 3.5 - 5.0 mEq/L [facility] Blood specimen (specimen) 09/27/2008 5:37 PM PLANT DIRECTOR 09/27/2008 5:51 PM PLANT DIRECTOR Olu Barrett DO CHEMISTRY ORDERABLES Fi nal Result INTERFACE SYSTEM Refer to clinic/hospital department [facility] CLIA# [id number] [address] [place] [address] documented in this encounter Visit Diagnoses Not on filedocumented in this encounter Care Teams Water Treatment Plant Mechanic Relationship Specialty Start Date End Date Charles Delgadillo MD [address] [place] [address] PCP - General Family Practice 09/05/10 documented as of this encounter
--- OUTSIDE RECORDS SUMMARY | 2025-09-18 01:34 | XMS_ITS | Encounter Summary ---
Author Organization [facility] Address [address] [place] [address] Care Team Providers Care Ict Help Desk Technician Name Role Phone Charles Delgadillo MD Primary Care Provider [phone] Encounter Details Date Type Department Care Team (Latest Contact Info) Description 06/21/1998 Outpatient Historical [facility] Rheumatology- [facility] [address] [address] Myalgia and myositis, unspecified (Primary Dx); Sleep disturbance, unspecified Social History Tobacco Use Types Packs/Day Years Used Date Smoking Tobacco: Never Assessed Comments Unknown Sex and Gender Information Value Date Recorded Sex Assigned at Not on file Legal Sex Female 5:59 AM 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
--- OUTSIDE RECORDS SUMMARY | 2025-09-18 01:34 | XMS_ITS | Encounter Summary ---
Author Organization [facility] Address [address] 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
--- OUTSIDE RECORDS SUMMARY | 2025-09-18 01:34 | XMS_ITS | Encounter Summary ---
Author Organization [facility] Address [address] [place] [address] Care Team Providers Care Gas Well Drilling Manager Name Role Phone Charles Delgadillo MD Primary Care Provider [phone] Encounter Details Date Type Department Care Team (Late st Contact Info) Description 10/09/2007 Outpatient Historical [facility] Medicine [address] [phone] Roz Capellan MD [address] [place] [phone] Social History Tobacco Use Types Packs/Day Years Used Date Smoking Tobacco: Never Assessed Comments Unknown Sex and Gender Information Value Date Recorded Sex Assigned at Not on file Legal Sex Female 5:59 AM STAND GRINDER Gender Identity Not on file Sexual Orientation Not on file documented as of this encounter Progress Notes * Roz Capellan MD - 10/09/2007 12:00 AM CST Patient Name: Moira Mckinnon DOS: 10/09/2007 : 1950 VITALS: Weight: 144.6 pounds. Pulse: 80. BP: 130/88. CHIEF COMPLAINT: One-month follow-up multiple problems. HISTORY: Mrs. Mckinnon has brought in a laundry list that includes her toes going numb, left ankle hurts. Some hemosiderin staining where she had her Lovenox injections, and her blood pressure being higher than usual. At this time, she is taking Plavix 75 mg daily as a blood thinner. She had elevated liver functions which caused us to change her hydrocodone acetaminophen mix to Helen 10/325 half atablet every 4 hours for pain. PHYSICAL EXAMINATION: NEUROLOGIC: The patient does have decreased ability to appreciate a monofilament in her toes especially between the first and second toe of her left foot. LUNGS: She has clear lungs. HEART: The heart has a regular rate and rhythm. GENERAL: Her mood is slightly anxious, as well as depressed, not nearly as bubbly as usual. ASSESSMENT: 1. Paresthesias of her toes. 2. Arthritis. 3. Elevated liver functions. 4. Chronic anticoagulation. 5. Anxiety and depression. PLAN: Refer back to Dr. Nunez regarding her ankle pain. B12 levels. Repeat hepatic functions andCPK were obtained today. No other medication changes and follow up in three months' time. Roz Capellan M.D. [facility] Electronically Signed by Roz Capellan M.D. 10/22/2007 14:25 , arin Charles Document #: [id number] cc: D GRINDER documented in this encounter Plan of Treatment Not on file documented as of this encounter Visit Diagnoses Not on filedocumented in this encounter Care Teams Gas Well Drilling Manager Relationship Specialty Start Date End Date Charles Delgadillo MD [address], [place] [address] PCP - General Family Practice 09/05/10 documented as of this encounter
--- OUTSIDE RECORDS SUMMARY | 2025-09-18 01:34 | XMS_ITS | Encounter Summary ---
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
--- OUTSIDE RECORDS SUMMARY | 2025-09-18 01:34 | XMS_ITS | Encounter Summary ---
Author Organization [facility] Address [address] [facility] [address] Care Team Providers Care Lens Coater Name Role Phone Charles Delgadillo MD Primary Care Provider [phone] Encounter Details Date Type Department Care Team (Late st Contact Info) Description 01/24/2007 Inpatient Historical HIS IN BED John Guzman MD NO ADDRESS ON FILE Peripheral Vascular Complications (Primary Dx) Social History Tobacco Use Types Packs/Day Years Used Date Smoking Tobacco: Never Assessed Comments Unknown Sex and Gender Information Value Date Recorded Sex Assigned at Not on file 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 Gender Identity Not on file Sexual Orientation Not on file documented as of this encounter Plan of Treatment Not on file documented as of this encounter Procedures Procedure Name Priority Date/Time Associated Diagnosis Comments OCCULT BLOOD GUAIAC DIAGNOSTIC Routine 02/02/2007 7:25 PM CDT PTT Routine 02/02/2007 7:08 PM CDT DIFFERENTIAL, MANUAL Routine 01/30/2007 4:18 AM CDT CBC WITH DIFFERENTIAL Routine 01/30/2007 4:18 AM CDT BASIC METABOLIC PANEL Routine 01/30/2007 4:18 AM CDT DIFFERENTIAL, MANUAL Routine 01/29/2007 4:28 AM CDT CBC WITH DIFFERENTIAL Routine 01/29/2007 4:28 AM CDT BASIC METABOLIC PANEL Routine 01/29/2007 4:28 AM CDT CBC WITH DIFFERENTIAL Routine 01/28/2007 5:05 AM CDT PTT Routine 01/28/2007 5:05 AM CDT BASIC METABOLIC PANEL Routine 01/28/2007 5:05 AM CDT POC BLOOD GAS, LYTES AND H+H Routine 01/27/2007 1:23 PM CDT CBC WITH DIFFERENTIAL Routine 01/27/2007 1:19 PM CDT BASIC METABOLIC PANEL Routine 01/27/2007 1:19 PM CDT CARDIAC ENZYMES Routine 01/27/2007 5:10 AM CDT CBC WITH DIFFERENTIAL Routine 01/27/2007 5:10 AM CDT PTT Routine 01/27/2007 5:10 AM CDT CARDIAC ENZYMES Routine 01/26/2007 10:55 PM CDT URINALYSIS W/REFLEX MICROSCOPIC Routine 01/26/2007 6:50 PM CDT CARDIAC ENZYMES Routine 01/26/2007 5:00 PM CDT POC BLOOD GAS, LYTES AND H+H Routine 01/26/2007 4:51 PM CDT DIFFERENTIAL, MANUAL Routine 01/26/2007 4:05 AM CDT CBC WITH DIFFERENTIAL Routine 01/26/2007 4:05 AM CDT PTT Routine 01/26/2007 4:05 AM CDT PTT Routine 01/25/2007 7:50 PM CDT PTT Routine 01/25/2007 12:50 PM CDT DIFFERENTIAL, MANUAL Routine 01/25/2007 6:48 AM CDT CBC WITH DIFFERENTIAL Routine 01/25/2007 6:48 AM CDT PTT Routine 01/25/2007 6:48 AM CDT BASIC METABOLIC PANEL Routine 01/25/2007 6:48 AM CDT DIFFERENTIAL, MANUAL Routine 01/24/2007 10:53 PM CDT CBC WITH DIFFERENTIAL Routine 01/24/2007 10:53 PM CDT PTT Routine 01/24/2007 10:53 PM CDT XR CHEST PA OR AP 1 VW Routine 01/24/2007 7:07 PM CDT XR CHEST PA OR AP 1 VW Routine 01/24/2007 7:07 PM CDT XR CHEST PA OR AP 1 VW Routine 01/24/2007 7:07 PM CDT documented in this encounter Results * OCCULT BLOOD, STOOL (02/02/2007 7:25 PM CDT) OCCULT BLOOD #1 Negative INTERFACE SYSTEM 02/02/2007 7:25 PM CDT us John Guzman MD BODY FLUIDS AND STOOLS Edit ed INTERFACE SYSTEM Refer to clinic/hospital department * (ABNORMAL) PTT (02/02/2007 7:08 PM CDT) PTT 41.8(H) 21.6 - 35.6 Secs INTERFACE SYSTEM Comment: Therapeutic Range: Hi-level PE/DVT heparin protocol 80.1 -95.0 sec Lo-level PE/DVT heparin protocol 67.1 - 80.0 sec Cardiac Heparin Protocol 67.1 - 85.0 sec Neuro Heparin Protocol 67.1 - 80.0 sec As of 08/29/2006 note change in APTT Normal Range. 02/02/2007 7:08 PM CDT John Guzman MD HEMATOLOGY ORDERABLES Edite d Performing Organization Address [facility] Phone Number INTERFACE SYSTEM Refer to clinic/hospital department * (ABNORMAL) DIFFERENTIAL, MANUAL (01/30/2007 4:18 AM CDT) NEUTROPHILS, SEG 51 36 - 66 % INT ERFACE SYSTEM BANDS 2 0 - 6 % INTERFACE SYSTEM LYMPHOCYTES 31 24 - 44 % INTERFAC E SYSTEM MONOCYTE 7 4 - 10 % INTERFACE SYSTEM EOSINOPHILS 6(H) 0 - 3 % INTERFAC E SYSTEM BASOPHILS 1 0 - 1 % INTERFACE SYSTEM METAMYELOCYTE 1 0 - 1 % INTERF KRAIG SYSTEM MYELOCYTES 1 <=1 % INTERFACE SYSTEM PLATELET EST. Increased( A) Normal INTERFACE SYSTEM RBC MORPHOLOGY Normal Normal INTER FACE SYSTEM 01/30/2007 4:18 AM CDT John Guzman MD HEMATOLOGY ORDERABLES COM E dited Performing Organization Address [facility] Phone Number INTERFACE SYSTEM Refer to clinic/hospital department * BASIC METABOLIC PANEL (01/30/2007 4:18 AM CDT) GLUCOSE 97 70 - 110 mg/dL INTERFACE SYSTEM BUN 14 7 - 17 mg/dL INTERFACE SYSTEM CREATININE 1.1 0.7 - 1.2 mg/dL INTERFACE SYSTEM SODIUM 136 136 - 145 mEq/L INTERFACE SYSTEM POTASSIUM 4.2 3.5 - 5.0 mEq/L INTERFACE SYSTEM CHLORIDE 100 95 - 110 mEq/L INTERFACE SYSTEM CO2 27 22 - 32 mmol/l INTERFACE SYSTEM CALCIUM 9.8 8.4 - 10.5 mg/dL INTERFACE SYSTEM ANION GAP 13 9 - 20 mEq/L INTERFACE SYSTEM OSMOLALITY, CALCULATED 281 275 - 295 mOsm/Kg INTERFACE SYSTEM 01/30/2007 4:18 AM CDT John Guzman MD CHEMISTRY ORDERABLES Edited Performing Organization Address [facility] Phone Number INTERFACE SYSTEM Refer to clinic/hospital department * (ABNORMAL) CBC WITH DIFFERENTIAL (01/30/2007 4:18 AM CDT) WBC 16.1(H) 4.8 - 10.8 K/ul INTERFACE SYSTEM Comment: WBC Corrected for Nucleated RBC'S RBC 3.32(L) 4.20 - 5.40 Mil/ul INTERFACE SYSTEM HEMOGLOBIN 9.3(L) 12.0 - 16.0 g/dL INTERFACE SYSTEM HEMATOCRIT 30.1(L) 36.0 - 46.0 % INTERFACE SYSTEM MCV 90.7 84.0 - 103.0 Fl INTERFACE SYSTEM MCH 28.0 27.0 - 34.0 pg INTERFACE SYSTEM MCHC 30.9 30.0 - 35.0 g/dL INTERFACE SYSTEM RDW 15.4(H) 11.0 - 14.5 % INTERFACE SYSTEM PLATELETS 1,174(AA) 140 - 440 K/ul INTERFACE SYSTEM Comment: Potentially critical/toxic platelet count called by [facility] to 3f nathanael cronin , with verbal read back, at 01/30/07 04:27. MPV 9.4 8.9 - 12.8 Fl INTERFACE SYSTEM NEUTROPHILS 60.1 42.2 - 75.2 % INTERFACE SYSTEM NRBC 1 <=1 INTERFACE SYSTEM 01/30/2007 4:18 AM CDT John Guzman MD HEMATOLOGY ORDERABLES Edite d Performing Organization Address [facility] Phone Number INTERFACE SYSTEM Refer to clinic/hospital department * (ABNORMAL) DIFFERENTIAL, MANUAL (01/29/2007 4:28 AM CDT) NEUTROPHILS, SEG 59 36 - 66 % INT ERFACE SYSTEM BANDS 1 0 - 6 % INTERFACE SYSTEM LYMPHOCYTES 21(L) 24 - 44 % INTERFAC E SYSTEM MONOCYTE 13(H) 4 - 10 % INTERFACE SYSTEM EOSINOPHILS 3 0 - 3 % INTERFAC E SYSTEM MYELOCYTES 3(H) <=1 % INTERFACE SYSTEM PLATELET EST. Increased (A) Normal INTERFACE SYSTEM RBC MORPHOLOGY Abnormal( A) Normal INTERFACE SYSTEM POLYCHROMASIA 1+(A) None Seen INTERF KRAIG SYSTEM 01/29/2007 4:28 AM CDT John Guzman MD HEMATOLOGY ORDERABLES COM E dited Performing Organization Address [facility] Phone Number INTERFACE SYSTEM Refer to clinic/hospital department * BASIC METABOLIC PANEL (01/29/2007 4:28 AM CDT) GLUCOSE 100 70 - 110 mg/dL INTERFACE SYSTEM BUN 14 7 - 17 mg/dL INTERFACE SYSTEM CREATININE 1.0 0.7 - 1.2 mg/dL INTERFACE SYSTEM SODIUM 136 136 - 145 mEq/L INTERFACE SYSTEM POTASSIUM 3.9 3.5 - 5.0 mEq/L INTERFACE SYSTEM CHLORIDE 99 95 - 110 mEq/L INTERFACE SYSTEM CO2 28 22 - 32 mmol/l INTERFACE SYSTEM CALCIUM 9.8 8.4 - 10.5 mg/dL INTERFACE SYSTEM ANION GAP 13 9 - 20 mEq/L INTERFACE SYSTEM OSMOLALITY, CALCULATED 281 275 - 295 mOsm/Kg INTERFACE SYSTEM 01/29/2007 4:28 AM CDT John Guzman MD CHEMISTRY ORDERABLES Edited Performing Organization Address [facility] Phone Number INTERFACE SYSTEM Refer to clinic/hospital department * (ABNORMAL) CBC WITH DIFFERENTIAL (01/29/2007 4:28 AM CDT) WBC 16.5(H) 4.8 - 10.8 K/ul INTERFACE SYSTEM Comment: WBC Corrected for Nucleated RBC'S RBC 3.45(L) 4.20 - 5.40 Mil/ul INTERFACE SYSTEM HEMOGLOBIN 9.8(L) 12.0 - 16.0 g/dL INTERFACE SYSTEM HEMATOCRIT 31.3(L) 36.0 - 46.0 % INTERFACE SYSTEM MCV 90.7 84.0 - 103.0 Fl INTERFACE SYSTEM MCH 28.4 27.0 - 34.0 pg INTERFACE SYSTEM MCHC 31.3 30.0 - 35.0 g/dL INTERFACE SYSTEM RDW 15.7(H) 11.0 - 14.5 % INTERFACE SYSTEM PLATELETS 1,212(AA) 140 - 440 K/ul INTERFACE SYSTEM Comment: Potentially critical/toxic platelet called by [facility] to Dk PARR, with verbal read back, at 01/29/07 04:44. MPV 9.5 8.9 - 12.8 Fl INTERFACE SYSTEM NRBC 1 <=1 INTERFACE SYSTEM 01/29/2007 4:28 AM CDT John Guzman MD HEMATOLOGY ORDERABLES Edite d Performing Organization Address [facility] Phone Number INTERFACE SYSTEM Refer to clinic/hospital department * BASIC METABOLIC PANEL (01/28/2007 5:05 AM CDT) GLUCOSE 99 70 - 110 mg/dL INTERFACE SYSTEM BUN 15 7 - 17 mg/dL INTERFACE SYSTEM CREATININE 1.1 0.7 - 1.2 mg/dL INTERFACE SYSTEM SODIUM 138 136 - 145 mEq/L INTERFACE SYSTEM POTASSIUM 4.6 3.5 - 5.0 mEq/L INTERFACE SYSTEM CHLORIDE 102 95 - 110 mEq/L INTERFACE SYSTEM CO2 28 22 - 32 mmol/l INTERFACE SYSTEM CALCIUM 10.4 8.4 - 10.5 mg/dL INTERFACE SYSTEM ANION GAP 13 9 - 20 mEq/L INTERFACE SYSTEM OSMOLALITY, CALCULATED 286 275 - 295 mOsm/Kg INTERFACE SYSTEM 01/28/2007 5:05 AM CDT John Guzman MD CHEMISTRY ORDERABLES Edited Performing Organization Address [facility] Phone Number INTERFACE SYSTEM Refer to clinic/hospital department * CBC WITH DIFFERENTIAL (01/28/2007 5:05 AM CDT) PLATELETS 1,002 140 - 440 K/ul INTERFACE SYSTEM Comment:Potentially critical /toxic Plt called by [facility] to [place], with verbal read back, at 0536. WBC 17.8 4.8 - 10.8 K/ul INTERFACE SYSTEM RBC 3.68 4.20 - 5.40 Mil/ul INTERFACE SYSTEM HEMOGLOBIN 10.4 12.0 - 16.0 g/dL INTERFACE SYSTEM HEMATOCRIT 33.4 36.0 - 46.0 % INTERFACE SYSTEM MCV 90.8 84.0 - 103.0 Fl INTERFACE SYSTEM MCH 28.3 27.0 - 34.0 pg INTERFACE SYSTEM MCHC 31.1 30.0 - 35.0 g/dL INTERFACE SYSTEM RDW 15.7 11.0 - 14.5 % INTERFACE SYSTEM MPV 9.7 8.9 - 12.8 Fl INTERFACE SYSTEM NEUTROPHILS 70.9 42.2 - 75.2 % INTERFACE SYSTEM LYMPHOCYTES 16.1 24.0 - 44.0 % INTERFACE SYSTEM MONOCYTES 8.4 2.0 - 10.0 % INTERFA CE SYSTEM EOSINOPHILS 3.9 0.0 - 7.0 % INTERF KRAIG SYSTEM BASOPHILS 0.7 0.0 - 1.0 % INTERFAC E SYSTEM NEUTROPHIL ABSOLUTE 12.7 2.0 - 8.0 K/ul INTERFACE SYSTEM LYMPHOCYTE ABSOLUTE 2.9 1.2 - 4.0 K/ul INTERFACE SYSTEM MONOCYTE ABSOLUTE 1.5 0.1 - 0.6 K/ul INTERFACE SYSTEM EOSINOPHIL ABSOLUTE 0.7 0.0 - 0.7 K/ul INTERFACE SYSTEM BASOPHILS ABSOLUTE 0.1 0.0 - 0.2 K/ul INTERFACE SYSTEM PERIPHERAL BLOOD SMEAR REVIEW Smear Reviewed Automated Diff INTERFACE SYSTEM 01/28/2007 5:05 AM CDT John Guzman MD HEMATOLOGY ORDERABLES Final Result Performing Organization Address City/[facility] de Phone Number INTERFACE SYSTEM Refer to clinic/hospital department * (ABNORMAL) PTT (01/28/2007 5:05 AM CDT) PTT 36.6(H) 21.6 - 35.6 Secs INTERFACE SYSTEM Comment: Therapeutic Range: Hi-level PE/DVT heparin protocol 80.1 -95.0 sec Lo-level PE/DVT heparin protocol 67.1 - 80.0 sec Cardiac Heparin Protocol 67.1 - 85.0 sec Neuro Heparin Protocol 67.1 - 80.0 sec As of 08/29/2006 note change in APTT Normal Range. 01/28/2007 5:05 AM CDT us John Gzuman MD HEMATOLOGY ORDERABLES Edite d INTERFACE SYSTEM Refer to clinic/hospital department * (ABNORMAL) POC ISTAT EG 7+ (01/27/2007 1:23 PM CDT) SPECIMEN TYPE Arterial INTERF KRAIG SYSTEM Comment: Pulse OX: 99 Hemoglobin calculated from Hematocrit result FIO2 4 INTERFACE SYSTEM PH 7.42 7.35 - 7.45 Unit INTERFACE SYSTEM PH TEMP CORRECT 7.42 7.35 - 7.45 Unit INTERFACE SYSTEM PCO2 POC 37 35 - 45 mmHg INTERFACE SYSTEM PCO2 TEMP CORRECT 37 35 - 45 mmHg INTERFACE SYSTEM PO2 66(L) 80 - 105 mmHg INTERFACE SYSTEM PO2 TEMP CORRECT 66(L) 80 - 105 mmHg INTERFACE SYSTEM HCO3 (CALC) POC 24.2 22.0 - 26.0 mmol/l INTERFACE SYSTEM BASE EXCESS 0 -2 - 3 mmol/l INTERFACE SYSTEM HEMOGLOBIN POC 10.5 3 g/dL 12.0 - 16.0 g/dL INTERFACE SYSTEM HEMATOCRIT ABG 31(L) 38 - 51 % INTER FACE SYSTEM O2 SATURATION 93(L) 95 - 98 % INTERF KRAIG SYSTEM TCO2 (CALC) POC 25 23 - 27 mmol/l INTERFACE SYSTEM SODIUM 132(L) 138 - 146 mEq/L INTERFACE SYSTEM POTASSIUM 4.4 3.5 - 4.9 mEq/L INTERFACE SYSTEM CALCIUM IONIZED 1.27 1.12 - 1.32 mmol/l INTERFACE SYSTEM 01/27/2007 1:23 PM CDT us John Guzman MD POINT OF CARE TESTING COM E dited INTERFACE SYSTEM Refer to clinic/hospital department * (ABNORMAL) BASIC METABOLIC PANEL (01/27/2007 1:19 PM CDT) GLUCOSE 128(H) 70 - 110 mg/dL INTERFACE SYSTEM BUN 16 7 - 17 mg/dL INTERFACE SYSTEM CREATININE 1.1 0.7 - 1.2 mg/dL INTERFACE SYSTEM SODIUM 136 136 - 145 mEq/L INTERFACE SYSTEM POTASSIUM 4.4 3.5 - 5.0 mEq/L INTERFACE SYSTEM CHLORIDE 99 95 - 110 mEq/L INTERFACE SYSTEM CO2 26 22 - 32 mmol/l INTERFACE SYSTEM CALCIUM 10.2 8.4 - 10.5 mg/dL INTERFACE SYSTEM ANION GAP 15 9 - 20 mEq/L INTERFACE SYSTEM OSMOLALITY, CALCULATED 284 275 - 295 mOsm/Kg INTERFACE SYSTEM 01/27/2007 1:19 PM CDT John Guzman MD CHEMISTRY ORDERABLES Edited INTERFACE SYSTEM Refer to clinic/hospital department * (ABNORMAL) CBC WITH DIFFERENTIAL (01/27/2007 1:19 PM CDT) WBC 21.8(H) 4.8 - 10.8 K/ul INTERFACE SYSTEM RBC 3.77(L) 4.20 - 5.40 Mil/ul INTERFACE SYSTEM HEMOGLOBIN 11.0(L) 12.0 - 16.0 g/dL INTERFACE SYSTEM HEMATOCRIT 34.4(L) 36.0 - 46.0 % INTERFACE SYSTEM MCV 91.2 84.0 - 103.0 Fl INTERFACE SYSTEM MCH 29.2 27.0 - 34.0 pg INTERFACE SYSTEM MCHC 32.0 30.0 - 35.0 g/dL INTERFACE SYSTEM RDW 15.9(H) 11.0 - 14.5 % INTERFACE SYSTEM PLATELETS 1,214(AA) 140 - 440 K/ul INTERFACE SYSTEM Comment:Plt called to Gracia PARR, repeated, 1348,sw. MPV 9.9 8.9 - 12.8 Fl INTERFACE SYSTEM NEUTROPHILS 79.1(H) 42.2 - 75.2 % INTERFACE SYSTEM LYMPHOCYTES 13.0(L) 24.0 - 44.0 % INTERFACE SYSTEM MONOCYTES 5.6 2.0 - 10.0 % INTERFA CE SYSTEM EOSINOPHILS 1.9 0.0 - 7.0 % INTERF KRAIG SYSTEM BASOPHILS 0.4 0.0 - 1.0 % INTERFAC E SYSTEM NEUTROPHIL ABSOLUTE 17.2(H) 2.0 - 8.0 K/ul INTERFACE SYSTEM LYMPHOCYTE ABSOLUTE 2.8 1.2 - 4.0 K/ul INTERFACE SYSTEM MONOCYTE ABSOLUTE 1.2(H) 0.1 - 0.6 K/ul INTERFACE SYSTEM EOSINOPHIL ABSOLUTE 0.4 0.0 - 0.7 K/ul INTERFACE SYSTEM BASOPHILS ABSOLUTE 0.1 0.0 - 0.2 K/ul INTERFACE SYSTEM PERIPHERAL BLOOD SMEAR REVIEW Smear Reviewed Automated Diff INTERFACE SYSTEM 01/27/2007 1:19 PM CDT John Guzman MD HEMATOLOGY ORDERABLES Edite d Performing Organization Address City/[facility]/ZIP Co de Phone Number INTERFACE SYSTEM Refer to clinic/hospital department * (ABNORMAL) CBC WITH DIFFERENTIAL (01/27/2007 5:10 AM CDT) PLATELETS 1,145(AA) 140 - 440 K/ul INTERFACE SYSTEM Comment: Potentially critical/toxic PLT called by TT to KIMBERLY PARR, with verbal read back, at 01/27/07 05:28. MPV 9.6 8.9 - 12.8 Fl INTERFACE SYSTEM WBC 21.6(H) 4.8 - 10.8 K/ul INTERFACE SYSTEM RBC 3.59(L) 4.20 - 5.40 Mil/ul INTERFACE SYSTEM HEMOGLOBIN 10.2(L) 12.0 - 16.0 g/dL INTERFACE SYSTEM HEMATOCRIT 32.2(L) 36.0 - 46.0 % INTERFACE SYSTEM MCV 89.7 84.0 - 103.0 Fl INTERFACE SYSTEM MCH 28.4 27.0 - 34.0 pg INTERFACE SYSTEM MCHC 31.7 30.0 - 35.0 g/dL INTERFACE SYSTEM RDW 15.8(H) 11.0 - 14.5 % INTERFACE SYSTEM NEUTROPHILS 75.5(H) 42.2 - 75.2 % INTERFACE SYSTEM LYMPHOCYTES 15.5(L) 24.0 - 44.0 % INTERFACE SYSTEM MONOCYTES 6.7 2.0 - 10.0 % INTERFA CE SYSTEM EOSINOPHILS 1.7 0.0 - 7.0 % INTERF KRAIG SYSTEM BASOPHILS 0.6 0.0 - 1.0 % INTERFAC E SYSTEM NEUTROPHIL ABSOLUTE 16.3(H) 2.0 - 8.0 K/ul INTERFACE SYSTEM LYMPHOCYTE ABSOLUTE 3.4 1.2 - 4.0 K/ul INTERFACE SYSTEM MONOCYTE ABSOLUTE 1.4(H) 0.1 - 0.6 K/ul INTERFACE SYSTEM EOSINOPHIL ABSOLUTE 0.4 0.0 - 0.7 K/ul INTERFACE SYSTEM BASOPHILS ABSOLUTE 0.1 0.0 - 0.2 K/ul INTERFACE SYSTEM PERIPHERAL BLOOD SMEAR REVIEW Smear Reviewed Automated Diff INTERFACE SYSTEM 01/27/2007 5:10 AM CDT us John Guzman MD HEMATOLOGY ORDERABLES Edite d INTERFACE SYSTEM Refer to clinic/hospital department * (ABNORMAL) PTT (01/27/2007 5:10 AM CDT) PTT 37.6(H) 21.6 - 35.6 Secs INTERFACE SYSTEM Comment: Therapeutic Range: Hi-level PE/DVT heparin protocol 80.1 -95.0 sec Lo-level PE/DVT heparin protocol 67.1 - 80.0 sec Cardiac Heparin Protocol 67.1 - 85.0 sec Neuro Heparin Protocol 67.1 - 80.0 sec As of 08/29/2006 note change in APTT Normal Range. 01/27/2007 5:10 AM CDT John Guzman MD HEMATOLOGY ORDERABLES Edite d Performing Organization Address [facility] Phone Number INTERFACE SYSTEM Refer to clinic/hospital department * CARDIAC ENZYMES (01/27/2007 5:10 AM CDT) TROPONIN I <0.1 0.0 - 1.3 ng/mL INTERFACE SYSTEM Comment: As of 07 the Troponin Reference Range has changed from 0.0-1.5 ng/ml to 0.0- 1.3 ng/ml due to a change in testing methodology. CKMB 0.4 0.0 - 5.0 ng/mL INTERFACE SYSTEM 01/27/2007 5:10 AM CDT John Guzman MD CHEMISTRY ORDERABLES Edited Performing Organization Address [facility] Phone Number INTERFACE SYSTEM Refer to clinic/hospital department * CARDIAC ENZYMES (01/26/2007 10:55 PM CDT) TROPONIN I <0.1 0.0 - 1.3 ng/mL INTERFACE SYSTEM Comment: As of 07 the Troponin Reference Range has changed from 0.0-1.5 ng/ml to 0.0- 1.3 ng/ml due to a change in testing methodology. CKMB 0.6 0.0 - 5.0 ng/mL INTERFACE SYSTEM 01/26/2007 10:5 5 PM CDT John Guzman MD CHEMISTRY ORDERABLES Edited Performing Organization Address [facility] Phone Number INTERFACE SYSTEM Refer to clinic/hospital department * URINALYSIS (01/26/2007 6:50 PM CDT) COLOR UA Yellow Straw INTERFACE SYSTEM CLARITY UA Clear Clear INTERFACE SYSTEM LEUKOCYTE ESTERASE UA NEGATIVE NEGATIVE INTERFACE SYSTEM NITRITE UA NEGATIVE NEGATIVE INTERFACE SYSTEM PH UA 7.0 5.0 - 9.0 INTERFACE SYSTEM PROTEIN UA NEGATIVE NEGATIVE INTERFACE SYSTEM GLUCOSE UA NEGATIVE NEGATIVE INTERFACE SYSTEM KETONES UA NEGATIVE NEGATIVE INTERFACE SYSTEM UROBILINOGEN UA 0.2 0.2 INTE RFACE SYSTEM BILIRUBIN UA NEGATIVE NEGATIVE INTERFA CE SYSTEM BLOOD UA NEGATIVE NEGATIVE INTERFACE SYSTEM SPECIFIC GRAVITY UA 1.010 1.005 - 1.030 INTERFACE SYSTEM MICRO EXAM No No INTERFACE SYSTEM 01/26/2007 6:50 PM CDT John Guzman MD URINE ORDERABLES Edited Performing Organization Address [facility] Phone Number INTERFACE SYSTEM Refer to clinic/hospital department * CARDIAC ENZYMES (01/26/2007 5:00 PM CDT) TROPONIN I <0.1 0.0 - 1.3 ng/mL INTERFACE SYSTEM Comment: As of 07 the Troponin Reference Range has changed from 0.0-1.5 ng/ml to 0.0- 1.3 ng/ml due to a change in testing methodology. CKMB 0.7 0.0 - 5.0 ng/mL INTERFACE SYSTEM 01/26/2007 5:00 PM CDT John Guzman MD CHEMISTRY ORDERABLES Edited Performing Organization Address [facility] Phone Number INTERFACE SYSTEM Refer to clinic/hospital department * (ABNORMAL) POC ISTAT EG 7+ (01/26/2007 4:51 PM CDT) SPECIMEN TYPE Arterial INTERF KRAIG SYSTEM Comment: Pulse OX: 90 Hemoglobin calculated from Hematocrit result FIO2 3 INTERFACE SYSTEM PH 7.46(H) 7.35 - 7.45 Unit INTERFACE SYSTEM PH TEMP CORRECT 7.46(H) 7.35 - 7.45 Unit INTERFACE SYSTEM PCO2 POC 34(L) 35 - 45 mmHg INTERFACE SYSTEM PCO2 TEMP CORRECT 34(L) 35 - 45 mmHg INTERFACE SYSTEM PO2 60(L) 80 - 105 mmHg INTERFACE SYSTEM PO2 TEMP CORRECT 60(L) 80 - 105 mmHg INTERFACE SYSTEM HCO3 (CALC) POC 24.2 22.0 - 26.0 mmol/l INTERFACE SYSTEM BASE EXCESS 0 -2 - 3 mmol/l INTERFACE SYSTEM HEMOGLOBIN POC 11.6 3 g/dL 12.0 - 16.0 g/dL INTERFACE SYSTEM HEMATOCRIT ABG 34(L) 38 - 51 % INTER FACE SYSTEM O2 SATURATION 92(L) 95 - 98 % INTERF KRAIG SYSTEM TCO2 (CALC) POC 25 23 - 27 mmol/l INTERFACE SYSTEM SODIUM 132(L) 138 - 146 mEq/L INTERFACE SYSTEM POTASSIUM 4.4 3.5 - 4.9 mEq/L INTERFACE SYSTEM CALCIUM IONIZED 1.21 1.12 - 1.32 mmol/l INTERFACE SYSTEM 01/26/2007 4:51 PM CDT John Guzman MD POINT OF CARE TESTING COM E dited INTERFACE SYSTEM Refer to clinic/hospital department * (ABNORMAL) DIFFERENTIAL, MANUAL (01/26/2007 4:05 AM CDT) NEUTROPHILS, SEG 61 36 - 66 % INT ERFACE SYSTEM BANDS 1 0 - 6 % INTERFACE SYSTEM LYMPHOCYTES 31 24 - 44 % INTERFAC E SYSTEM MONOCYTE 3(L) 4 - 10 % INTERFACE SYSTEM EOSINOPHILS 1 0 - 3 % INTERFAC E SYSTEM MYELOCYTES 3(H) <=1 % INTERFACE SYSTEM PLATELET EST. Increased (A) Normal INTERFACE SYSTEM RBC MORPHOLOGY Abnormal( A) Normal INTERFACE SYSTEM ANISOCYTOSIS 1+(A) None Seen INTERFA CE SYSTEM POIKILOCYTES 1+(A) None Seen INTERFA CE SYSTEM POLYCHROMASIA 1+(A) None Seen INTERF KRAIG SYSTEM 01/26/2007 4:05 AM CDT John Guzman MD HEMATOLOGY ORDERABLES COM E dited Performing Organization Address [facility] Phone Number INTERFACE SYSTEM Refer to clinic/hospital department * (ABNORMAL) PTT (01/26/2007 4:05 AM CDT) PTT 107.1(H) 21.6 - 35.6 Secs INTERFACE SYSTEM Comment: Therapeutic Range: Hi-level PE/DVT heparin protocol 80.1 -95.0 sec Lo-level PE/DVT heparin protocol 67.1 - 80.0 sec Cardiac Heparin Protocol 67.1 - 85.0 sec Neuro Heparin Protocol 67.1 - 80.0 sec As of 08/29/2006 note change in APTT Normal Range. 01/26/2007 4:05 AM CDT John Guzman MD HEMATOLOGY ORDERABLES Edite d Performing Organization Address [facility] Phone Number INTERFACE SYSTEM Refer to clinic/hospital department * (ABNORMAL) CBC WITH DIFFERENTIAL (01/26/2007 4:05 AM CDT) PLATELETS 1,172(AA) 140 - 440 K/ul INTERFACE SYSTEM Comment: Potentially critical/toxic PLATELET COUNT called by DUNIA FUCHS, with verbal read back, at 01/26/07 04:49. WBC 20.6(H) 4.8 - 10.8 K/ul INTERFACE SYSTEM RBC 3.81(L) 4.20 - 5.40 Mil/ul INTERFACE SYSTEM HEMOGLOBIN 11.0(L) 12.0 - 16.0 g/dL INTERFACE SYSTEM HEMATOCRIT 34.2(L) 36.0 - 46.0 % INTERFACE SYSTEM MCV 89.8 84.0 - 103.0 Fl INTERFACE SYSTEM MCH 28.9 27.0 - 34.0 pg INTERFACE SYSTEM MCHC 32.2 30.0 - 35.0 g/dL INTERFACE SYSTEM RDW 16.0(H) 11.0 - 14.5 % INTERFACE SYSTEM MPV 10.2 8.9 - 12.8 Fl INTERFACE SYSTEM 01/26/2007 4:05 AM CDT John Guzman MD HEMATOLOGY ORDERABLES Edite d Performing Organization Address [facility] Phone Number INTERFACE SYSTEM Refer to clinic/hospital department * (ABNORMAL) PTT (01/25/2007 7:50 PM CDT) PTT 70.8(H) 21.6 - 35.6 Secs INTERFACE SYSTEM Comment: Therapeutic Range: Hi-level PE/DVT heparin protocol 80.1 -95.0 sec Lo-level PE/DVT heparin protocol 67.1 - 80.0 sec Cardiac Heparin Protocol 67.1 - 85.0 sec Neuro Heparin Protocol 67.1 - 80.0 sec As of 08/29/2006 note change in APTT Normal Range. 01/25/2007 7:50 PM CDT John Guzman MD HEMATOLOGY ORDERABLES Edite d Performing Organization Address [facility] Phone Number INTERFACE SYSTEM Refer to clinic/hospital department * (ABNORMAL) PTT (01/25/2007 12:50 PM CDT) PTT 77.2(H) 21.6 - 35.6 Secs INTERFACE SYSTEM Comment: Therapeutic Range: Hi-level PE/DVT heparin protocol 80.1 -95.0 sec Lo-level PE/DVT heparin protocol 67.1 - 80.0 sec Cardiac Heparin Protocol 67.1 - 85.0 sec Neuro Heparin Protocol 67.1 - 80.0 sec As of 08/29/2006 note change in APTT Normal Range. 01/25/2007 12:5 0 PM CDT John Guzman MD HEMATOLOGY ORDERABLES Edite d Performing Organization Address [facility] Phone Number INTERFACE SYSTEM Refer to clinic/hospital department * (ABNORMAL) PTT (01/25/2007 6:48 AM CDT) PTT 66.3(H) 21.6 - 35.6 Secs INTERFACE SYSTEM Comment: Therapeutic Range: Hi-level PE/DVT heparin protocol 80.1 -95.0 sec Lo-level PE/DVT heparin protocol 67.1 - 80.0 sec Cardiac Heparin Protocol 67.1 - 85.0 sec Neuro Heparin Protocol 67.1 - 80.0 sec As of 08/29/2006 note change in APTT Normal Range. 01/25/2007 6:48 AM CDT John Guzman MD HEMATOLOGY ORDERABLES Edite d Performing Organization Address [facility] Phone Number INTERFACE SYSTEM Refer to clinic/hospital department * (ABNORMAL) DIFFERENTIAL, MANUAL (01/25/2007 6:48 AM CDT) NEUTROPHILS, SEG 64 36 - 66 % INT ERFACE SYSTEM BANDS 1 0 - 6 % INTERFACE SYSTEM LYMPHOCYTES 18(L) 24 - 44 % INTERFAC E SYSTEM MONOCYTE 5 4 - 10 % INTERFACE SYSTEM EOSINOPHILS 7(H) 0 - 3 % INTERFAC E SYSTEM BASOPHILS 1 0 - 1 % INTERFACE SYSTEM MYELOCYTES 4(H) <=1 % INTERFACE SYSTEM PLATELET EST. Increased (A) Normal INTERFACE SYSTEM RBC MORPHOLOGY Abnormal( A) Normal INTERFACE SYSTEM ANISOCYTOSIS 1+(A) None Seen INTERFA CE SYSTEM POIKILOCYTES 1+(A) None Seen INTERFA CE SYSTEM POLYCHROMASIA 1+(A) None Seen INTERF KRAIG SYSTEM 01/25/2007 6:48 AM CDT John Guzman MD HEMATOLOGY ORDERABLES COM E dited Performing Organization Address [facility] Phone Number INTERFACE SYSTEM Refer to clinic/hospital department * BASIC METABOLIC PANEL (01/25/2007 6:48 AM CDT) GLUCOSE 107 70 - 110 mg/dL INTERFACE SYSTEM BUN 11 7 - 17 mg/dL INTERFACE SYSTEM CREATININE 0.9 0.7 - 1.2 mg/dL INTERFACE SYSTEM SODIUM 140 136 - 145 mEq/L INTERFACE SYSTEM POTASSIUM 4.1 3.5 - 5.0 mEq/L INTERFACE SYSTEM CHLORIDE 106 95 - 110 mEq/L INTERFACE SYSTEM CO2 24 22 - 32 mmol/l INTERFACE SYSTEM CALCIUM 9.5 8.4 - 10.5 mg/dL INTERFACE SYSTEM ANION GAP 14 9 - 20 mEq/L INTERFACE SYSTEM OSMOLALITY, CALCULATED 288 275 - 295 mOsm/Kg INTERFACE SYSTEM 01/25/2007 6:48 AM CDT John Guzman MD CHEMISTRY ORDERABLES Edited Performing Organization Address [facility] de Phone Number INTERFACE SYSTEM Refer to clinic/hospital department * (ABNORMAL) CBC WITH DIFFERENTIAL (01/25/2007 6:48 AM CDT) WBC 18.3(H) 4.8 - 10.8 K/ul INTERFACE SYSTEM RBC 3.53(L) 4.20 - 5.40 Mil/ul INTERFACE SYSTEM HEMOGLOBIN 10.0(L) 12.0 - 16.0 g/dL INTERFACE SYSTEM HEMATOCRIT 32.0(L) 36.0 - 46.0 % INTERFACE SYSTEM MCV 90.7 84.0 - 103.0 Fl INTERFACE SYSTEM MCH 28.3 27.0 - 34.0 pg INTERFACE SYSTEM MCHC 31.3 30.0 - 35.0 g/dL INTERFACE SYSTEM RDW 15.8(H) 11.0 - 14.5 % INTERFACE SYSTEM PLATELETS 1,168(AA) 140 - 440 K/ul INTERFACE SYSTEM Comment: Potentially critical/toxic Platelet of 1,168,000 called by lc to Marika PARR, with verbal read back, at 01/25/2007 7:20 AM. MPV 10.0 8.9 - 12.8 Fl INTERFACE SYSTEM 01/25/2007 6:48 AM CDT John Guzman MD HEMATOLOGY ORDERABLES Edite d Performing Organization Address [facility] de Phone Number INTERFACE SYSTEM Refer to clinic/hospital department * (ABNORMAL) DIFFERENTIAL, MANUAL (01/24/2007 10:53 PM CDT) NEUTROPHILS, SEG 72(H) 36 - 66 % INT ERFACE SYSTEM BANDS 8(H) 0 - 6 % INTERFACE SYSTEM LYMPHOCYTES 10(L) 24 - 44 % INTERFAC E SYSTEM MONOCYTE 5 4 - 10 % INTERFACE SYSTEM EOSINOPHILS 4(H) 0 - 3 % INTERFAC E SYSTEM METAMYELOCYTE 1 0 - 1 % INTERF KRAIG SYSTEM PLATELET EST. Increased (A) Normal INTERFACE SYSTEM RBC MORPHOLOGY Abnormal( A) Normal INTERFACE SYSTEM ANISOCYTOSIS 1+(A) None Seen INTERFA CE SYSTEM POIKILOCYTES 1+(A) None Seen INTERFA CE SYSTEM POLYCHROMASIA Present(A ) None Seen INTERFACE SYSTEM HYPOCHROMIA 2+(A) None Seen INTERFAC E SYSTEM 01/24/2007 10:5 3 PM CDT us John Guzman MD HEMATOLOGY ORDERABLES COM E dited INTERFACE SYSTEM Refer to clinic/hospital department * (ABNORMAL) CBC WITH DIFFERENTIAL (01/24/2007 10:53 PM CDT) WBC 17.7(H) 4.8 - 10.8 K/ul INTERFACE SYSTEM RBC 3.41(L) 4.20 - 5.40 Mil/ul INTERFACE SYSTEM HEMOGLOBIN 9.9(L) 12.0 - 16.0 g/dL INTERFACE SYSTEM HEMATOCRIT 31.0(L) 36.0 - 46.0 % INTERFACE SYSTEM MCV 90.9 84.0 - 103.0 Fl INTERFACE SYSTEM MCH 29.0 27.0 - 34.0 pg INTERFACE SYSTEM MCHC 31.9 30.0 - 35.0 g/dL INTERFACE SYSTEM RDW 15.9(H) 11.0 - 14.5 % INTERFACE SYSTEM PLATELETS 1,088(AA) 140 - 440 K/ul INTERFACE SYSTEM Comment: Potentially critical/toxic platelet count called by dunia nuno, with verbal read back, at 01/24/07 23:21. MPV 9.8 8.9 - 12.8 Fl INTERFACE SYSTEM NEUTROPHILS 65.0 42.2 - 75.2 % INTERFACE SYSTEM LYMPHOCYTES 19.9(L) 24.0 - 44.0 % INTERFACE SYSTEM MONOCYTES 9.7 2.0 - 10.0 % INTERFACE SYSTEM EOSINOPHILS 4.8 0.0 - 7.0 % INTERFACE SYSTEM BASOPHILS 0.6 0.0 - 1.0 % INTERFACE SYSTEM NEUTROPHIL ABSOLUTE 11.5(H) 2.0 - 8.0 K/ul INTERFACE SYSTEM LYMPHOCYTE ABSOLUTE 3.5 1.2 - 4.0 K/ul INTERFACE SYSTEM MONOCYTE ABSOLUTE 1.7(H) 0.1 - 0.6 K/ul INTERFACE SYSTEM EOSINOPHIL ABSOLUTE 0.8(H) 0.0 - 0.7 K/ul INTERFACE SYSTEM BASOPHILS ABSOLUTE 0.1 0.0 - 0.2 K/ul INTERFACE SYSTEM 01/24/2007 10:5 3 PM CDT John Guzman MD HEMATOLOGY ORDERABLES Edite d Performing Organization Address [facility] Phone Number INTERFACE SYSTEM Refer to clinic/hospital department * PTT (01/24/2007 10:53 PM CDT) PTT 32.0 21.6 - 35.6 Secs INTERFACE SYSTEM Comment: Therapeutic Range: Hi-level PE/DVT heparin protocol 80.1 -95.0 sec Lo-level PE/DVT heparin protocol 67.1 - 80.0 sec Cardiac Heparin Protocol 67.1 - 85.0 sec Neuro Heparin Protocol 67.1 - 80.0 sec As of 08/29/2006 note change in APTT Normal Range. 01/24/2007 10:5 3 PM CDT John Guzman MD HEMATOLOGY ORDERABLES Edite d Performing Organization Address [facility] Phone Number INTERFACE SYSTEM Refer to clinic/hospital department * XR CHEST PA OR AP (01/24/2007 7:07 PM CDT) Anatomical Region Laterality Modality Chest Other 01/24/2007 7:07 PM CDT Narrative 01/24/2007 7:07 PM CDT The lungs are hypoexpanded. Atelectatic changes are present to a moderate degree in the lowerlobes. At least small effusions appear to be present. Absence of the distal left clavicle isnoted. Impression: Hypoexpanded lungs with probable pleural effusions of uncertain size. This can be betterassessed with a lateral view or bilateral decubitus views if indicated. Little change isappreciated compared to January 27. Effusions are worse than when seen on January 12 however. - Dictated By: Olu Chiu M.D. Electronically Signed By: Olu Chiu M.D. Date Signed: 01/28/07 Procedure Note 08/13/2009 The lungs are hypoexpanded. Atelectatic changes are present to a moderatedegree in the lowerlobes. At least small effusions appear to be present. Absence of the distal leftclavicle isnoted. Impression: Hypoexpanded lungs with probable pleural effusions of uncertain size. Thiscan be betterassessed with a lateral view or bilateral decubitus views if indicated. Little changeisappreciated compared to January 27. Effusions are worse than when seen on January 12 however. - Dictated By: Olu Chiu M.D. Electronically Signed By: Olu Chiu M.D. Date Signed: 01/28/07 John Guzman MD DIAGNOSTIC IMAGING ORDERABL ES Final Result * XR CHEST PA OR AP (01/24/2007 7:07 PM CDT) Anatomical Region Laterality Modality Chest Other 01/24/2007 7:07 PM CDT Narrative 01/24/2007 7:07 PM CDT PORTABLE AP CHEST 01/27/2007: COMPARISON STUDY: 01/26/2007. Decreased lung volumes with bibasilar opacification at least partially reflective of atelectasis andpleural effusions. Stable cardiovascular silhouette. IMPRESSION: No significant change. - Dictated By: Michael Han M.D. Electronically Signed By: Michael Han M.D. Date Signed: 01/28/07 Procedure Note 08/13/2009 PORTABLE AP CHEST 01/27/2007: COMPARISON STUDY: 01/26/2007. Decreased lung volumes with bibasilar opacification at least partiallyreflective of atelectasis andpleural effusions. Stable cardiovascular silhouette. IMPRESSION: No significant change. - Dictated By: iMchael Han M.D. Electronically Signed By: Michael Han M.D. Date Signed: 01/28/07 John Guzman MD DIAGNOSTIC IMAGING ORDERABL ES Final Result * XR CHEST PA OR AP (01/24/2007 7:07 PM CDT) Anatomical Region Laterality Modality Chest Other 01/24/2007 7:07 PM CDT Narrative 01/24/2007 7:07 PM CDT Chest: Technique: Portable 6' AP erect. Comparison to 01/13/2007. Findings: Left hemidiaphragm is obscured with infiltrate and effusion. Perihilar infiltrates arepresent bilaterally. Postsurgical changes over left glenoid labrum are noted. Multiple left ribdeformities are evident. Comparison to prior study of 01/13/2007 shows interval removal of multiple support tubes. The lefthemidiaphragm was visible previously. The right perihilar infiltrate is decreased over previousstudy. IMPRESSION: New area of atelectasis and consolidation over left hemidiaphragm. - Dictated By: Nigel Barnett M.D. Electronically Signed By: Nigel Barnett M.D. Date Signed: 01/27/07 Procedure Note 08/13/2009 Chest: Technique: Portable 6' AP erect. Comparison to 01/13/2007. Findings: Left hemidiaphragm is obscured with infiltrate and effusion. Perihilarinfiltrates arepresent bilaterally. Postsurgical changes over left glenoid labrum are noted.Multiple left ribdeformities are evident. Comparison to prior study of 01/13/2007 shows interval removal of multiplesupport tubes. The lefthemidiaphragm was visible previously. The right perihilar infiltrateis decreased over previousstudy. IMPRESSION: New area of atelectasis and consolidation over left hemidiaphragm. - Dictated By: Nigel Barnett M.D. Electronically Signed By: Nigel Barnett M.D. Date Signed: 01/27/07 John Guzman MD DIAGNOSTIC IMAGING ORDERABL ES Final Result documented in this encounter Visit Diagnoses Diagnosis Peripheral vascular complications- Primary documented in this encounter Care Teams Lens Coater Relationship Specialty Start Date End Date Charles Delgadillo MD [address] [place] [address] PCP - General Family Practice 09/05/10 documented as of this encounter
--- OUTSIDE RECORDS SUMMARY | 2025-09-18 01:34 | XMS_ITS | Encounter Summary ---
Author Organization [facility] Address [address] [place] [address] Care Team Providers Care Negotiator Name Role Phone Charles Delgadillo MD Primary Care Provider [phone] Encounter Details Date Type Department Care Team (Latest Contact Info) Description 04/28/2007 Outpatient Historical [facility] Medicine [place] [address] [place] [phone] Roz Capellan MD [address] [place] [phone] Acute Frontal Sinusitis (Primary Dx); Urinary Tract Infection, Site not Specified; Unspecified Closed Fracture of Ankle Social History Tobacco Use Types Packs/Day Years Used Date Smoking Tobacco: Never Assessed Comments Unknown Sex and Gender Information Value Date Recorded Sex Assigned at Not on file Legal 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
--- OUTSIDE RECORDS SUMMARY | 2025-09-18 01:34 | XMS_ITS | Encounter Summary ---
Author Organization [facility] Address [address] [place] [address] Care Team Providers Care Department Of Sociology Chair Name Role Phone Charles Delgadillo MD Primary Care Provider [phone] Encounter Details Date Type Department Care Team (Latest Contact Info) Description 04/16/2007 Outpatient [facility] [address] [address] [address] Antonio Lopez MD [address] [place] [address] Unspecified Backache (Primary Dx) Social History Tobacco Use Types Packs/Day Years Used Date Smoking Tobacco: Never Assessed Comments Unknown Sex and Gender Information Value Date Recorded Sex Assigned at Not on file Legal Sex Female 5:59 AM PROGRAM SUPPORT SPECIALIST Gender Identity Not on file Sexual Orientation Not on file documented as of this encounter Plan of Treatment Not on file documented as of this encounter Visit Diagnoses Diagnosis Backache, unspecified- Primary documented in this encounter Care Teams Department Of Sociology Chair Relationship Specialty Start Date End Date Charles Delgadillo MD [address], [place] [address] PCP - General Family Practice 09/05/10 documented as of this encounter
--- OUTSIDE RECORDS SUMMARY | 2025-09-18 01:34 | XMS_ITS | Encounter Summary ---
Author Organization [facility] Address [address] [place] [address] Care Team Providers Care Director Data Name Role Phone Charles Delgadillo MD Primary Care Provider [phone] Encounter Details Date Type Department Care Team (Latest Contact Info) Description 03/12/2007 Outpatient Historical [facility] General and Trauma Surgery-[address] [place] [address] Graham Wadsworth MD [address] [place] [phone] Follow-Up Examination, Following Unspecified Surgery (Primary Dx) Social History Tobacco Use Types Packs/Day Years Used Date Smoking Tobacco: Never Assessed Comments Unknown Sex and Gender Information Value Date Recorded Sex Assigned at Not on file Legal 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
--- OUTSIDE RECORDS SUMMARY | 2025-09-18 01:34 | XMS_ITS | Encounter Summary ---
Author Organization [facility] Address [address] [place] [address] Care Team Providers Care Channel Worker Name Role Phone Charles Delgadillo MD Primary Care Provider [phone] Encounter Details Date Type Department Care Team (Late st Contact Info) Description 03/04/2008 Outpatient Historical [facility] Vasiliy Xiao MD [address] [phone] Social History Tobacco Use Types Packs/Day Years Used Date Smoking Tobacco: Never Assessed Comments No Sex and Gender Information Value Date Recorded Sex Assigned at Not on file 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
--- OUTSIDE RECORDS SUMMARY | 2025-09-18 01:34 | XMS_ITS | Encounter Summary ---
Author Organization [facility] Address [address] [place] [address] Care Team Providers Care Guest Relations Representative Name Role Phone Charles Delgadillo MD Primary Care Provider [phone] Encounter Details Date Type Department Care Team (Late st Contact Info) Description 02/20/2007 Outpatient Historical [facility] General and Trauma Surgery-[address] [place] [address] Andrew Richards MD [address] [facility] [address] [place] [address] Follow-Up Examination, Following Unspecified Surgery (Primary Dx) Social History Tobacco Use Types Packs/Day Years Used Date Smoking Tobacco: Never Assessed Comments Unknown Sex and Gender Information Value Date Recorded Sex Assigned at Not on file Legal Sex Female 5:59 AM MED ASST Gender Identity Not on file Sexual Orientation Not on file documented as of this encounter Plan of Treatment Not on file documented as of this encounter Visit Diagnoses Diagnosis Follow-up examination, following unspecified surgery- Primary documented in this encounter Care Teams Guest Relations Representative Relationship Specialty Start Date End Date Charles Delgadillo MD [address] [place] [address] PCP - General Family Practice 09/05/10 documented as of this encounter
--- OUTSIDE RECORDS SUMMARY | 2025-09-18 01:34 | XMS_ITS | Encounter Summary ---
Author Organization [facility] Address [address] [place] [address] Care Team Providers Care Printing Gray Cloth Tender Name Role Phone Charles Delgadillo MD Primary Care Provider [phone] Encounter Details Date Type Department Care Team (Late st Contact Info) Description 12/14/[address] [facility] Imaging Services [address] 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
--- OUTSIDE RECORDS SUMMARY | 2025-09-18 01:34 | XMS_ITS | Encounter Summary ---
Author Organization [facility] Address [address] [place] [address] Care Team Providers Care Technical Analyst Name Role Phone Charles Delgadillo MD Primary Care Provider [phone] Encounter Details Date Type Department Care Team (Late st Contact Info) Description 01/27/[address] [facility] [address] [place] [address] [facility] [address] [place] [address] Vasiliy Xiao MD [address] [facility] [address] [place] [phone] Social History Tobacco Use Types Packs/Day Years Used Date Smoking Tobacco: Never Assessed Comments No Sex and Gender Information Value Date Recorded Sex Assigned at Not on file Legal Sex Female 5:59 AM BOBBIN DOFFER Gender Identity Not on file Sexual Orientation Not on file documented as of this encounter Plan of Treatment Not on file documented as of this encounter Visit Diagnoses Not on filedocumented in this encounter Care Teams Technical Analyst Relationship Specialty Start Date End Date Charles Delgadillo MD [address] [place] [address] PCP - General Family Practice 09/05/10 documented as of this encounter
--- OUTSIDE RECORDS SUMMARY | 2025-09-18 01:34 | XMS_ITS | Encounter Summary ---
Author Organization [facility] Address [address] [place] [address] Care Team Providers Care Dry Wall Finisher Name Role Phone Charles Delgadillo MD Primary Care Provider [phone] Encounter Details Date Type Department Care Team (Latest Contact Info) Description 06/10/2007 Outpatient Historical [facility] Orthopedic Sports Medicine-[facility] [address] [place] [address] Melvin Nunez MD NO ADDRESS ON FILE Closed Fracture of Lateral Malleolus (Primary Dx); Unspecified Site of Ankle Sprain and Strain Social History Tobacco Use Types Packs/Day Years Used Date Smoking Tobacco: Never Assessed Comments Unknown Sex and Gender Information Value Date Recorded Sex Assigned at Not on file Legal Sex Female 5:59 AM REGIONAL PSYCHIATRIC DIRECTOR Gender Identity Not on file Sexual Orientation Not on file documented as of this encounter Plan of Treatment Not on file documented as of this encounter Visit Diagnoses Diagnosis Closed fracture of lateral malleolus- Primary Sprain of ankle, unspecified site documented in this encounter Care Teams Dry Wall Finisher Relationship Specialty Start Date End Date Charles Delgadillo MD [address] [place] [address] PCP - General Family Practice 09/05/10 documented as of this encounter
--- OUTSIDE RECORDS SUMMARY | 2025-09-18 01:34 | XMS_ITS | Encounter Summary ---
Author Organization [facility] Address [address] [place] [address] Care Team Providers Care Gold Layer Name Role Phone Charles Delgadillo MD Primary Care Provider [phone] Encounter Details Date Type Department Care Team (Latest Contact Info) Description 02/10/2007 Outpatient Historical [facility] General and Trauma Surgery-[address] [place] [address] Adeel Jenkins S, DO [address] [place] [address] Shortness of Breath (Primary Dx); Fever; Candidiasis of Mouth; Nausea with Vomiting Social History Tobacco Use Types Packs/Day Years Used Date Smoking Tobacco: Never Assessed Comments Unknown Sex and Gender Information Value Date Recorded Sex Assigned at Not on file Legal Sex Female 5:59 AM FISHER CLAM Gender Identity Not on file Sexual Orientation Not on file documented as of this encounter Plan of Treatment Not on file documented as of this encounter Visit Diagnoses Diagnosis Shortness of breath- Primary Fever and other physiologic disturbances of temperature regulation Candidiasis of mouth Nausea with vomiting documented in this encounter Care Teams Gold Layer Relationship Specialty Start Date End Date Charles Delgadillo MD [address] [address] PCP - General Family Practice 09/05/10 documented as of this encounter
--- OUTSIDE RECORDS SUMMARY | 2025-09-18 01:34 | XMS_ITS | Encounter Summary ---
Author Organization [facility] Address [address] [place] [address] Care Team Providers Care Street Photographer Name Role Phone Charles Delgadillo MD Primary Care Provider Encounter Details Date Type Department Care Team (Latest Contact Info) Description 08/16/1998 Outpatient Historical [facility] Rheumatology- [facility] [address] [place] [address] Myalgia and myositis, unspecified (Primary Dx); Skin sensation disturb; Tension headache Social History Tobacco Use Types Packs/Day Years Used Date Smoking Tobacco: Never Assessed Comments Unknown Sex and Gender Information Value Date Recorded Sex Assigned at Not on file Legal Sex Female 5:59 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
--- OUTSIDE RECORDS SUMMARY | 2025-09-18 01:34 | XMS_ITS | Encounter Summary ---
Author Organization [facility] Address [address] [place] [address] Care Team Providers Care Supervisor Pairing And Inspecting Name Role Phone Charles Delgadillo MD Primary Care Provider [phone] Encounter Details Date Type Department Care Team (Latest Contact Info) Description 03/12/2007 Outpatient Historical [facility] Imaging Services[facility] [address] [place] [address] Fernando Jay, Paul Swain MD [address] [facility] [address] [place] [address] Follow-Up Examination, Following Other Surgery (Primary Dx) Social History Tobacco Use Types Packs/Day Years Used Date Smoking Tobacco: Never Assessed Comments Unknown Sex and Gender Information Value Date Recorded Sex Assigned at Not on file Legal Sex Female 5:59 AM SOCIAL WELFARE 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
--- OUTSIDE RECORDS SUMMARY | 2025-09-18 01:34 | XMS_ITS | Encounter Summary ---
Author Organization [employer] [facility] Address [address] [place] [address] Care Team Providers Care Family Support Worker Name Role Phone Charles Delgadillo MD Primary Care Provider [phone] Encounter Details Date Type Department Care Team (Latest Contact Info) Description 02/16/1998 Outpatient Historical [facility] Gamaliel Lara MD NO ADDRESS ON FILE Other joint derangement, not elsewhere classified, shoulder region (Primary Dx) Social History Tobacco Use Types Packs/Day Years Used Date Smoking Tobacco: Never Assessed Comments Unknown Sex and Gender Information Value Date Recorded Sex Assigned at Not on file Legal Sex Female 5:59 AM DATABASE REPORT WRITER Gender Identity Not on file Sexual Orientation Not on file documented as of this encounter Plan of Treatment Not on file documented as of this encounter Visit Diagnoses Diagnosis Other joint derangement, not elsewhere classified, shoulder region- Primary documented in this encounter Care Teams Family Support Worker Relationship Specialty Start Date End Date Charles Delgadillo MD [address] [place] [address] PCP - General Family Practice 09/05/10 documented as of this encounter
--- OUTSIDE RECORDS SUMMARY | 2025-09-18 01:34 | XMS_ITS | Encounter Summary ---
Author Organization [facility] Address [address] [place] [address] Care Team Providers Care Spanish Professor Name Role Phone Charles Delgadillo MD Primary Care Provider Encounter Details Date Type Department Care Team (Late st Contact Info) Description 03/23/2008 Outpatient Historical [facility] [address] [place] [phone] Vasiliy Xiao MD [address] [phone] Social History Tobacco Use Types Packs/Day Years Used Date Smoking Tobacco: Never Assessed Comments No Sex and Gender Information Value Date Recorded Sex Assigned at Not on file Legal Sex Female 5:59 AM VETERANS ADVISER Gender Identity Not on file Sexual Orientation Not on file documented as of this encounter Plan of Treatment Not on file documented as of this encounter Visit Diagnoses Not on filedocumented in this encounter Care Teams Spanish Professor Relationship Specialty Start Date End Date Charles Delgadillo MD [address] [place] [address] PCP - General Family Practice 09/05/10 documented as of this encounter
--- OUTSIDE RECORDS SUMMARY | 2025-09-18 01:34 | XMS_ITS | Encounter Summary ---
Author Organization [facility] Address [address] [place] [address] Care Team Providers Care Assistant Gm Of Content & Delivery Name Role Phone Charles Delgadillo MD Primary Care Provider Encounter Details Date Type Department Care Team (Latest Contact Info) Description 03/24/2007 Outpatient Historical [facility] Medicine [place] [address] [place] [address] Roz Capellan MD [address] [place] [phone] Skin Sensation Disturb (Primary Dx); Unspecified Site of Ankle Sprain and Strain Social History Tobacco Use Types Packs/Day Years Used Date Smoking Tobacco: Never Assessed Comments Unknown Sex and Gender Information Value Date Recorded Sex Assigned at Not on file Legal Sex Female 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
--- OUTSIDE RECORDS SUMMARY | 2025-09-18 01:34 | XMS_ITS | Encounter Summary ---
Author Organization [facility] Address [address] [place] [address] Care Team Providers Care Real Estate Professional Name Role Phone Charles Delgadillo MD Primary Care Provider [phone] Encounter Details Date Type Department Care Team (Latest Contact Info) Description 03/06/2007 Outpatient Historical [facility] General and Trauma Surgery-[address] [place] [address] Paul King Jr., MD [address] [place] [address] [address] [place] [address] Embolism and Thrombosis of Unspecified Deep Vessels of Lower Extremity (CMS/HCC) (Primary Dx); Edema; Encounter for Long-Term (Current) Use of Anticoagulants Social History Tobacco Use Types Packs/Day Years Used Date Smoking Tobacco: Never Assessed Comments Unknown Sex and Gender Information Value Date Recorded Sex Assigned at Not on file Legal Sex Female 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
--- OUTSIDE RECORDS SUMMARY | 2025-09-18 01:34 | XMS_ITS | Encounter Summary ---
Author Organization [employer] [facility] Address [address] [place] [address] Care Team Providers Care Production Team Manager Name Role Phone Charles Delgadillo MD Primary Care Provider [phone] Encounter Details Date Type Department Care Team (Latest Contact Info) Description 09/12/1998 Outpatient Historical [facility] Olu Pineda Jr., MD [facility] [place] [address] Urinary frequency (Primary Dx); Other dyspnea and respiratory abnormality; Pure hypercholesterolem; Myalgia and myositis, unspecified Social History Tobacco Use Types Packs/Day Years Used Date Smoking Tobacco: Never Assessed Comments Unknown Sex and Gender Information Value Date Recorded Sex Assigned at Not on file Legal Sex Female 5:59 AM SALES SUPPORT REP Gender Identity Not on file Sexual Orientation Not on file documented as of this encounter Plan of Treatment Not on file documented as of this encounter Visit Diagnoses Diagnosis Urinary frequency- Primary Other dyspnea and respiratory abnormality Pure hypercholesterolem Pure hypercholesterolemia Myalgia and myositis, unspecified Mylagia and myositis, unspecified documented in this encounter Care Teams Production Team Manager Relationship Specialty Start Date End Date Charles Delgadillo MD [address] [place] [phone] PCP - General Family Practice 09/05/10 documented as of this encounter
--- OUTSIDE RECORDS SUMMARY | 2025-09-18 01:34 | XMS_ITS | Encounter Summary ---
Author Organization [facility] Address [address] [place] [address] Care Team Providers Care Bottle Packing Machine Cleaner Name Role Phone Charles Delgadillo MD Primary Care Provider Encounter Details Date Type Department Care Team (Latest Contact Info) Description 07/24/2007 Outpatient Historical [facility] Medicine [address] [phone] Roz Capellan MD [address] [place] [phone] Unspecified Disorder of Sweat Glands (Primary Dx) Social History Tobacco Use Types Packs/Day Years Used Date Smoking Tobacco: Never Assessed Comments Unknown Sex and Gender Information Value Date Recorded Sex Assigned at Not on file Legal Sex Female 5:59 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 Gender Identity Not on file Sexual Orientation Not on file documented as of this encounter Plan of Treatment Not on file documented as of this encounter Procedures Procedure Name Priority Date/Time Associated Diagnosis Comments ACUTE HEPATITIS PANEL Routine 07/24/2007 11:35 AM CDT documented in this encounter Results * ACUTE HEPATITIS PANEL (07/24/2007 11:35 AM CDT) HEPATITIS B SURFACE AG Negative Negative INTERFACE SYSTEM HEPATITIS B CORE IGM Negative Negative INTERFACE SYSTEM HEPATITIS A IGM Negative Negative INTE RFACE SYSTEM HEPATITIS C AB Negative Negative INTER FACE SYSTEM Comment: HCV antibody testing is performed by E.I.A. methodology. CDC recommends positive HCV antibody tests have confirmation testing. Low positive results should be confirmed with RIBA. This will determine if results are false positive. If a high positive result is obtained an HCV RNA may be run. The RNA test confirms infection and the level of the RNA, to some extent, helps guide treatment. The same specimen can be used for RIBA and will be held for 7 days. Please contact the Immunology lab if RIBA testing is desired. However, if HCV RNA testing is desired, a new specimen must be collected. Blood should be collected in SST (serum) or EDTA (plasma) separation tubes. Separate serum or plasma from whole blood within 6 hours of collection. Serum or plasma can be transported at refrigerated temperature or frozen and transported. 07/24/2007 11:3 5 AM CDT us Roz Capellan MD CHEMISTRY ORDERABLES Edited INTERFACE SYSTEM Refer to clinic/hospital department documented in this encounter Visit Diagnoses Diagnosis Unspecified disorder of sweat glands- Primary documented in this encounter Care Teams Bottle Packing Machine Cleaner Relationship Specialty Start Date End Date Charles Delgadillo MD [address] [place] [address] PCP - General Family Practice 09/05/10 documented as of this encounter
--- OUTSIDE RECORDS SUMMARY | 2025-09-18 01:34 | XMS_ITS | Encounter Summary ---
Author Organization [facility] Address [address] [place] [address] Care Team Providers Care School Administrator Name Role Phone Charles Delgadillo MD Primary Care Provider [phone] Encounter Details Date Type Department Care Team (Latest Contact Info) Description 10/20/2007 Outpatient Historical [facility] Pain Management Procedures [address] [place] [phone] Antonio Lopez MD [address] [place] [address] Other Postprocedural Status; Esophageal Reflux; Unspecified Arthropathy, Site Unspecified; Unspecified Asthma; Depressive Disorder, not Elsewhere Classified; Irritable Bowel Syndrome; Headache; Personal History of Other Diseases of Circulatory System; Unspecified Essential Hypertension Social History Tobacco Use Types Packs/Day Years Used Date Smoking Tobacco: Never Assessed Comments Unknown Sex and Gender Information Value Date Recorded Sex Assigned at Not on file Legal Sex Female 5:59 AM DIRECTOR OF SUSTAINABILITY Gender Identity Not on file Sexual Orientation Not on file documented as of this encounter Plan of Treatment Not on file documented as of this encounter Procedures Procedure Name Priority Date/Time Associated Diagnosis Comments XR LUMBAR SPINE 2 OR 3 VW Routine 10/21/2007 3:59 PM DIRECTOR OF SUSTAINABILITY documented in this encounter Results * XR LUMBAR SPINE 2 OR 3 VW (10/21/2007 3:59 PM DIRECTOR OF SUSTAINABILITY) Anatomical Region Laterality Modality Spine Other 10/21/2007 3:59 PM DIRECTOR OF SUSTAINABILITY Narrative 10/21/2007 3:59 PM DIRECTOR OF SUSTAINABILITY Two views of the lumbar spine are submitted and the prior exam is July 15, 2007. There are postoperative changes with a metallic spacer device between the L4 and L5 vertebral bodies. The spacer is unchanged in good position. A filter in the projection of the inferior vena cava is also unchanged. Degenerative changes at L5-S1 and prominent facet degenerative changes in the lumbar spine are noted. No acute abnormality is identified. Impression: Unchanged postoperative lumbar spine. - Procedure Note Flavia Kirkpatrick Caryl - 10/22/2007 Two views of the lumbar spine are submitted and the prior exam is 2006. There are postoperative changes with a metallic spacer device between theL4 and L5 vertebral bodies. The spacer is unchanged in good position. A filter in the projection ofthe inferior vena cava is also unchanged. Degenerative changes at L5-S1 and prominent facetdegenerative changes in the lumbar spine are noted. No acute abnormality is identified. Impression: Unchanged postoperative lumbar spine. - us Antonio Lopez MD DIAGNOSTIC IMAGING ORDERABLES Final Result documented in this encounter Visit Diagnoses Diagnosis Other postprocedural status(V45.89) Other postprocedural status Esophageal reflux Arthropathy, unspecified, site unspecified Unspecified asthma(493.90) Unspecified asthma Depressive disorder, not elsewhere classified Irritable bowel syndrome Headache(784.0) Headache Personal history of other diseases of circulatory system Unspecified essential hypertension documented in this encounter Care Teams School Administrator Relationship Specialty Start Date End Date Charles Delgadillo MD [address], [place] [address] PCP - General Family Practice 09/05/10 documented as of this encounter
--- OUTSIDE RECORDS SUMMARY | 2025-09-18 01:34 | XMS_ITS | Encounter Summary ---
Author Organization [facility] Address [address] [place] [address] Care Team Providers Care Paint Roller Covermaker Name Role Phone Charles Delgadillo MD Primary Care Provider [phone] Encounter Details Date Type Department Care Team (Latest Contact Info) Description 08/07/2007 Outpatient Historical [facility] Medicine [address] [phone] Roz Capellan MD [address] [place] [phone] Nonspecific Abnormal Results of Liver Function Study (Primary Dx); Rheumatoid Arthritis (CMS/HCC); Unspecified Myalgia and Myositis; Spasm of Muscle Social History Tobacco Use Types Packs/Day Years Used Date Smoking Tobacco: Never Assessed Comments Unknown Sex and Gender Information Value Date Recorded Sex Assigned at Not on file Legal Sex Female 5:59 AM OCEAN FREIGHT AGENT Gender Identity Not on file Sexual Orientation Not on file documented as of this encounter Plan of Treatment Not on file documented as of this encounter Visit Diagnoses Diagnosis Nonspecific abnormal results of liver function study- Primary Rheumatoid arthritis(714.0) (CMS/HCC) Rheumatoid arthritis Myalgia and myositis, unspecified Mylagia and myositis, unspecified Spasm of muscle documented in this encounter Care Teams Paint Roller Covermaker Relationship Specialty Start Date End Date Charles Delgadillo MD [address] [place] [address] PCP - General Family Practice 09/05/10 documented as of this encounter
--- OUTSIDE RECORDS SUMMARY | 2025-09-18 01:34 | XMS_ITS | Encounter Summary ---
Author Organization [facility] Address [address] [place] [address] Care Team Providers Care Ethnology Professor Name Role Phone Charles Delgadillo MD Primary Care Provider [phone] Encounter Details Date Type Department Care Team (Latest Contact Info) Description 04/29/[address] 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
--- OUTSIDE RECORDS SUMMARY | 2025-09-18 01:34 | XMS_ITS | Encounter Summary ---
Author Organization [facility] Address [address] [place] [address] Care Team Providers Care Supervisor Motor Vehicle Assembly Name Role Phone Charles Delgadillo MD Primary Care Provider [phone] Encounter Details Date Type Department Care Team (Latest Contact Info) Description 03/04/1998 Outpatient Historical [facility] Rheumatology- [facility] [address] [place] [phone] Myalgia and myositis, unspecified (Primary Dx); Pain in joint, shoulder region Social History Tobacco Use Types Packs/Day Years Used Date Smoking Tobacco: Never Assessed Comments Unknown Sex and Gender Information Value Date Recorded Sex Assigned at Not on file Legal 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
--- OUTSIDE RECORDS SUMMARY | 2025-09-18 01:34 | XMS_ITS | Encounter Summary ---
Author Organization [facility] Address [address] [place] [address] Care Team Providers Care Photoengraving Retoucher Name Role Phone Charles Delgadillo MD Primary Care Provider [phone] Encounter Details Date Type Department Care Team (Late st Contact Info) Description 09/08/2007 Outpatient Historical [facility] Medicine [place] [address] [place] [phone] Roz Capellan MD [address] [place] [phone] Social History Tobacco Use Types Packs/Day Years Used Date Smoking Tobacco: Never Assessed Comments Unknown Sex and Gender Information Value Date Recorded Sex Assigned at Not on file Legal Sex Female 5:59 AM BAR HELPER Gender Identity Not on file Sexual Orientation Not on file documented as of this encounter Plan of Treatment Not on file documented as of this encounter Visit Diagnoses Not on filedocumented in this encounter Care Teams Photoengraving Retoucher Relationship Specialty Start Date End Date Charles Delgadillo MD [address] [place] [phone] PCP - General Family Practice 09/05/10 documented as of this encounter
--- OUTSIDE RECORDS SUMMARY | 2025-09-18 01:34 | XMS_ITS | Encounter Summary ---
Author Organization [facility] Address [address] [place] [address] Care Team Providers Care Software Maintenance Engineer Name Role Phone Charles Delgadillo MD Primary Care Provider [phone] Encounter Details Date Type Department Care Team (Late st Contact Info) Description 09/30/2008 Outpatient Historical [facility] [address] [place] [address] [place] [address] Fernando Jay, Paul Swain MD [address] [place] [address] Social History Tobacco Use Types Packs/Day Years Used Date Smoking Tobacco: Never Alcohol Use Standard Drinks/Week Comments No 0 (1 standard drink = 0.6 oz pur e alcohol) Comments No Sex and Gender Information Value Date Recorded Sex Assigned at Not on file Legal Sex Female 5:59 AM BATCH STILL OPERATOR Gender Identity Not on file Sexual Orientation Not on file 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 Not on file Not on file Not on file disabled Not on file Not on file Not on file documented as of this encounter Plan of Treatment Not on file documented as of this encounter Procedures Procedure Name Priority Date/Time Associated Diagnosis Comments DIFFERENTIAL, MANUAL Stat 09/30/2008 4:37 PM BATCH STILL OPERATOR CBC WITH DIFFERENTIAL Stat 09/30/2008 4:37 PM BATCH STILL OPERATOR COMPREHENSIVE METABOLIC PANEL Stat 09/30/2008 4:37 PM BATCH STILL OPERATOR documented in this encounter Results * (ABNORMAL) DIFFERENTIAL, MANUAL (09/30/2008 4:37 PM BATCH STILL OPERATOR) Pathologist [facility] ANISOCYTOSIS 1+(A) None Seen [facility] LYMPHOCYTES 38 24 - 44 % [facility] PLATELET EST. Increased (A) Normal [facility] MONOCYTE 10 4 - 10 % [facility] NEUTROPHILS, SEG 48 36 - 66 % [facility] RBC MORPHOLOGY Abnormal( A) Normal [facility] EOSINOPHILS 4(H) 0 - 3 % [facility] Blood specimen (specimen) 09/30/2008 4:37 PM BATCH STILL OPERATOR 09/30/2008 5:01 PM BATCH STILL OPERATOR Narrative INTERFACE SYSTEM - 09/30/2008 5:21 PM BATCH STILL OPERATOR Differential ordered by policy. Paul King Jr., MD HEMATOLOGY ORDERABLES C OM Final Result INTERFACE SYSTEM Refer to clinic/hospital department [facility] CLIA# [id number] [address] [place] [address] * (ABNORMAL) CBC WITH DIFFERENTIAL (09/30/2008 4:37 PM BATCH STILL OPERATOR) Pathologist [facility] MPV 10.2 8.9 - 12.8 Fl [facility] MCV 90.3 84.0 - 103.0 Fl [facility] HEMOGLOBIN 13.8 12.0 - 16.0 g/dL [facility] RDW 14.5 11.0 - 14.5 % [facility] WBC 16.6(H) 4.8 - 10.8 K/ul [facility] MCH 29.9 27.0 - 34.0 pg [facility] HEMATOCRIT 41.7 36.0 - 46.0 % [facility] PLATELETS 521(H) 140 - 440 K/ul [facility] RBC 4.62 4.20 - 5.40 Mil/ul [facility] MCHC 33.1 30.0 - 35.0 g/dL [facility] Blood specimen (specimen) 09/30/2008 4:37 PM BATCH STILL OPERATOR 09/30/2008 5:01 PM BATCH STILL OPERATOR us Paul King Jr., MD HEMATOLOGY ORDERABLES E dited INTERFACE SYSTEM Refer to clinic/hospital department [facility] CLIA# [id number] [address] [place] [address] * (ABNORMAL) COMPREHENSIVE METABOLIC PANEL (09/30/2008 4:37 PM BATCH STILL OPERATOR) ALBUMIN 4.7 3.5 - 5.0 g/dL [facility] POTASSIUM 4.0 3.5 - 5.0 mEq/L [facility] GLOBULIN (CALC) 2.6 2.4 - 3.9 g/dL [facility] CREATININE 1.2 0.7 - 1.2 mg/dL [facility] CALCIUM 9.6 8.4 - 10.5 mg/dL [facility] OSMOLALITY, CALCULATED 300(H) 275 - 295 mOsm/Kg [facility] ALT 49(H) 4 - 36 IU/L [facility] GLUCOSE 97 70 - 110 mg/dL [facility] CHLORIDE 110 95 - 110 mEq/L [facility] ALBUMIN/GLOBULIN RATIO 1.8 1.0 - 2.3 [facility] ALKALINE PHOSPHATASE 102(H) 25 - 100 U/L [facility] SODIUM 144 136 - 145 mEq/L [facility] BILIRUBIN TOTAL 0.2(L) 0.3 - 1.2 mg/dL [facility] TOTAL PROTEIN 7.3 6.3 - 8.2 g/dL [facility] BUN 25(H) 7 - 17 mg/dL [facility] AST 37(H) 8 - 33 U/L [facility] CO2 26 22 - 32 mmol/l [facility] ANION GAP 12 9 - 20 mEq/L [facility] Blood specimen (specimen) 09/30/2008 4:37 PM BATCH STILL OPERATOR 09/30/2008 5:01 PM BATCH STILL OPERATOR us Paul King Jr., MD CHEMISTRY ORDERABLES Fi nal Result INTERFACE SYSTEM Refer to clinic/hospital department [facility] CLIA# [id number] [facility] [place] [address] documented in this encounter Visit Diagnoses Not on filedocumented in this encounter Care Teams Software Maintenance Engineer Relationship Specialty Start Date End Date Charles Delgadillo MD [address] [place] [address] PCP - General Family Practice 09/05/10 documented as of this encounter
--- OUTSIDE RECORDS SUMMARY | 2025-09-18 01:34 | XMS_ITS | Encounter Summary ---
Author Organization [facility] Address [address] [place] [address] Care Team Providers Care Cad Draftsman Name Role Phone Charles Delgadillo MD Primary Care Provider Encounter Details Date Type Department Care Team (Latest Contact Info) Description 02/27/[address] [facility] [address] 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 Gender Identity Not on file Sexual Orientation Not on file documented as of this encounter Plan of Treatment Not on file documented as of this encounter Procedures Procedure Name Priority Date/Time Associated Diagnosis Comments CBC WITH DIFFERENTIAL Routine 02/27/2007 2:20 PM CDT PROTIME-INR Routine 02/27/2007 2:20 PM CDT MAGNESIUM LEVEL Routine 02/27/2007 2:20 PM CDT COMPREHENSIVE METABOLIC PANEL Routine 02/27/2007 2:20 PM CDT documented in this encounter Results * (ABNORMAL) PROTIME-INR (02/27/2007 2:20 PM CDT) PROTIME 16.4(H) 13.0 - 15.7 Secs INTERFACE SYSTEM Comment: As of 06 note change in normal range. INR 1.2 INTERFACE SYSTEM Comment: Expected Values for INR: DVT/PE Goal INR 2.5; range 2.0 - 3.0 Valve Replacement Tissue Goal INR 2.5; range 2.0 - 3.0 Mechanical Goal INR 3.0; range 2.5 - 3.5 POST-WI Goal INR 2.5; range 2.0 - 3.0 or Goal 3.0; range 2.5 - 3.5 Atrial Fibrillation Goal INR 2.5; range 2.0 - 3.0 Ischemic Stroke Goal INR 2.5; range 2.0 - 3.0 For additional information see Guidelines for Anticoagulation available from the pharmacy Johanny Frank D. 02/27/2007 2:20 PM CDT Andrew Richards MD HEMATOLOGY ORDERABLES Edite d Performing Organization Address [facility] Phone Number INTERFACE SYSTEM Refer to clinic/hospital department * MAGNESIUM LEVEL (02/27/2007 2:20 PM CDT) MAGNESIUM 1.8 1.7 - 2.4 mg/dL INTERFACE SYSTEM Comment: The new reference range is 1.7-2.4 The old referance range was 1.6-2.3 02/27/2007 2:20 PM CDT Andrew Richards MD CHEMISTRY ORDERABLES Edited Performing Organization Address [facility] Phone Number INTERFACE SYSTEM Refer to clinic/hospital department * (ABNORMAL) COMPREHENSIVE METABOLIC PANEL (02/27/2007 2:20 PM CDT) GLUCOSE 113(H) 70 - 110 mg/dL INTERFACE SYSTEM BUN 11 7 - 17 mg/dL INTERFACE SYSTEM CREATININE 1.0 0.7 - 1.2 mg/dL INTERFACE SYSTEM SODIUM 141 136 - 145 mEq/L INTERFACE SYSTEM POTASSIUM 3.9 3.5 - 5.0 mEq/L INTERFACE SYSTEM CHLORIDE 104 95 - 110 mEq/L INTERFACE SYSTEM CO2 21(L) 22 - 32 mmol/l INTERFACE SYSTEM CALCIUM 11.2(H) 8.4 - 10.5 mg/dL INTERFACE SYSTEM TOTAL PROTEIN 8.2 6.3 - 8.2 g/dL INTERFACE SYSTEM ALBUMIN 4.6 3.5 - 5.0 g/dL INTERFACE SYSTEM ALKALINE PHOSPHATASE 84 25 - 100 U/L INTERFACE SYSTEM AST 21 8 - 33 U/L INTERFACE SYSTEM ALT 13 4 - 36 IU/L INTERFACE SYSTEM BILIRUBIN TOTAL 0.3 0.3 - 1.2 mg/dL INTERFACE SYSTEM GLOBULIN (CALC) 3.6 2.4 - 3.9 g/dL INTERFACE SYSTEM ALBUMIN/GLOBULIN RATIO 1.3 1.0 - 2.3 INTERFACE SYSTEM ANION GAP 20 9 - 20 mEq/L INTERFACE SYSTEM OSMOLALITY, CALCULATED 290 275 - 295 mOsm/Kg INTERFACE SYSTEM 02/27/2007 2:20 PM CDT us Andrew Richards MD CHEMISTRY ORDERABLES Edited INTERFACE SYSTEM Refer to clinic/hospital department * (ABNORMAL) CBC WITH DIFFERENTIAL (02/27/2007 2:20 PM CDT) WBC 13.3(H) 4.8 - 10.8 K/ul INTERFACE SYSTEM RBC 4.42 4.20 - 5.40 Mil/ul INTERFACE SYSTEM HEMOGLOBIN 12.7 12.0 - 16.0 g/dL INTERFACE SYSTEM HEMATOCRIT 39.5 36.0 - 46.0 % INTERFACE SYSTEM MCV 89.4 84.0 - 103.0 Fl INTERFACE SYSTEM MCH 28.7 27.0 - 34.0 pg INTERFACE SYSTEM MCHC 32.2 30.0 - 35.0 g/dL INTERFACE SYSTEM RDW 18.1(H) 11.0 - 14.5 % INTERFACE SYSTEM PLATELETS 543(H) 140 - 440 K/ul INTERFACE SYSTEM MPV 10.0 8.9 - 12.8 Fl INTERFACE SYSTEM NEUTROPHILS 64.7 42.2 - 75.2 % INTERFACE SYSTEM LYMPHOCYTES 25.4 24.0 - 44.0 % INTERFACE SYSTEM MONOCYTES 8.3 2.0 - 10.0 % INTERFA CE SYSTEM EOSINOPHILS 1.3 0.0 - 7.0 % INTERF KRAIG SYSTEM BASOPHILS 0.3 0.0 - 1.0 % INTERFAC E SYSTEM NEUTROPHIL ABSOLUTE 8.6(H) 2.0 - 8.0 K/ul INTERFACE SYSTEM LYMPHOCYTE ABSOLUTE 3.4 1.2 - 4.0 K/ul INTERFACE SYSTEM MONOCYTE ABSOLUTE 1.1(H) 0.1 - 0.6 K/ul INTERFACE SYSTEM EOSINOPHIL ABSOLUTE 0.2 0.0 - 0.7 K/ul INTERFACE SYSTEM BASOPHILS ABSOLUTE 0.0 0.0 - 0.2 K/ul INTERFACE SYSTEM PERIPHERAL BLOOD SMEAR REVIEW Automated Diff Automated Diff INTERFACE SYSTEM 02/27/2007 2:20 PM CDT us Andrew Richards MD HEMATOLOGY ORDERABLES Edite d INTERFACE SYSTEM Refer to clinic/hospital department documented in this encounter Visit Diagnoses Diagnosis Abdominal pain, other specified site- Primary documented in this encounter Care Teams Cad Draftsman Relationship Specialty Start Date End Date Charles Delgadillo MD [address] [place] [address] PCP - General Family Practice 09/05/10 documented as of this encounter
--- OUTSIDE RECORDS SUMMARY | 2025-09-18 01:34 | XMS_ITS | Encounter Summary ---
Author Organization [facility] Address [address] [place] [address] Care Team Providers Care Junior Programmer Name Role Phone Charles Delgadillo MD Primary Care Provider [phone] Encounter Details Date Type Department Care Team (Latest Contact Info) Description 07/15/2007 Outpatient [facility] [address] [place] [address] [place] [address] [phone] Antonio Lopez MD [address] [place] [address] Follow-Up Examination, Following Unspecified Surgery (Primary Dx) Social History Tobacco Use Types Packs/Day Years Used Date Smoking Tobacco: Never Assessed Comments Unknown Sex and Gender Information Value Date Recorded Sex Assigned at Not on file 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
--- OUTSIDE RECORDS SUMMARY | 2025-09-18 01:34 | XMS_ITS | Encounter Summary ---
Author Organization [facility] Address [address] [place] [address] Care Team Providers Care Roll Cutting Operator Name Role Phone Charles Delgadillo MD Primary Care Provider [phone] Encounter Details Date Type Department Care Team (Latest Contact Info) Description 06/27/2007 Outpatient Historical [facility] Medicine [address] [phone] Roz Capellan MD [address] [place] [phone] Insomnia, Unspecified (Primary Dx); Unspecified Arthropathy, Site Unspecified; Unspecified Constipation; Lower Extremity Embolism (CMS/HCC); Vaccine for Influenza Social History Tobacco Use Types Packs/Day Years Used Date Smoking Tobacco: Never Assessed Comments Unknown Sex and Gender Information Value Date Recorded Sex Assigned at Not on file Legal Sex Female 5:59 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 Gender Identity Not on file Sexual Orientation Not on file documented as of this encounter Plan of Treatment Not on file documented as of this encounter Visit Diagnoses Diagnosis Insomnia, unspecified- Primary Arthropathy, unspecified, site unspecified Unspecified constipation Lower extremity embolism (CMS/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
--- OUTSIDE RECORDS SUMMARY | 2025-09-18 01:34 | XMS_ITS | Encounter Summary ---
Author Organization [facility] Address [address] [place] [address] Care Team Providers Care Air Lift Operator Name Role Phone Charles Delgadillo MD Primary Care Provider [phone] Encounter Details Date Type Department Care Team (Latest Contact Info) Description 02/20/2007 Outpatient Historical [facility] [address] 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
--- OUTSIDE RECORDS SUMMARY | 2025-09-18 01:35 | XMS_ITS | Encounter Summary ---
Author Organization [facility] Address [address] [place] [address] Care Team Providers Care Mud Jack Nozzle Worker Name Role Phone Charles Delgadillo MD Primary Care Provider [phone] Encounter Details Date Type Department Care Team (Late st Contact Info) Description 02/13/1999 Outpatient Historical [facility] 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
--- OUTSIDE RECORDS SUMMARY | 2025-09-18 01:35 | XMS_ITS | Encounter Summary ---
Author Organization [facility] Address [address] [place] [address] Care Team Providers Care Structural Drafter Name Role Phone Charles Delgadillo MD Primary Care Provider [phone] Encounter Details Date Type Department Care Team (Latest Contact Info) Description 09/17/[address] 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
--- OUTSIDE RECORDS SUMMARY | 2025-09-18 01:35 | XMS_ITS | Encounter Summary ---
Author Organization [facility] Address [address] [place] [address] Care Team Providers Care Cancer Genetic Counselor Name Role Phone Charles Delgadillo MD Primary Care Provider [phone] Encounter Details Date Type Department Care Team (Latest Contact Info) Description 11/14/1998 Outpatient Historical [facility] Olu Pineda Jr., MD [address] [place] [address] Other and unspecified hyperlipidemia (Primary Dx); Unspecified essential hypertension; Chest pain, unspecified; Other dyspnea and respiratory abnormality Social History Tobacco Use Types Packs/Day Years Used Date Smoking Tobacco: Never Assessed Comments Unknown Sex and Gender Information Value Date Recorded Sex Assigned at Not on file 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
--- OUTSIDE RECORDS SUMMARY | 2025-09-18 01:35 | XMS_ITS | Encounter Summary ---
Author Organization [facility] Address [address] [place] [address] Care Team Providers Care Corporate Consultant Name Role Phone Charles Delgadillo MD Primary Care Provider [phone] Encounter Details Date Type Department Care Team (Latest Contact Info) Description 10/23/1999 Outpatient [facility] Medicine [place] [address] [facility] [address] [place] [address] Thomas Anne MD [address] [phone] Dizziness and giddiness (Primary Dx); Nasal/sinus dis NEC; Esophageal reflux Social History Tobacco Use Types Packs/Day Years Used Date Smoking Tobacco: Never Assessed Comments Unknown Sex and Gender Information Value Date Recorded Sex Assigned at Not on file 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
--- OUTSIDE RECORDS SUMMARY | 2025-09-18 01:35 | XMS_ITS | Encounter Summary ---
Author Organization [facility] Address [address] [place] [address] Care Team Providers Care Youth Associate Name Role Phone Charles Delgadillo MD Primary Care Provider [phone] Encounter Details Date Type Department Care Team (Latest Contact Info) Description 07/19/1999 Outpatient Historical [facility] Family Medicine [address] [phone] Jameel Rodriguez DO NO ADDRESS ON FILE Myalgia and myositis, unspecified (Primary Dx); Unspecified essential hypertension Social History Tobacco Use Types Packs/Day Years Used Date Smoking Tobacco: Never Assessed Comments Unknown Sex and Gender Information Value Date Recorded Sex Assigned at Not on file 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
--- OUTSIDE RECORDS SUMMARY | 2025-09-18 01:35 | XMS_ITS | Encounter Summary ---
Author Organization [facility] Address [address] [place] [address] Care Team Providers Care Forensic Accountant Name Role Phone Cahrles Delgadillo MD Primary Care Provider [phone] Reason for Referral * Radiology Services (Routine) - Closed Specialty Diagnoses / Procedures Referred By Contac t Referred To Contact Diagnoses Lumbosacral spondylosis without myelopathy Procedures XR FLUORO NEEDLE GUIDANCE SPINE Ashu Caldwell MD Phone: tel: fax: Referral ID Status Reason Start Date Expiration Date Visits Re quested Visits Authorized [id number] Closed 10/28/2018 11/28/2019 1 1 NE HEAD REPAIRER Encounter Details Date Type Department Care Team (Late st Contact Info) Description 10/28/2018 Ancillary Orders [facility] Pain Management Procedures [place] [address] [place] [address] [place] [address] 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 Exam was auto-finalized. 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
--- OUTSIDE RECORDS SUMMARY | 2025-09-18 01:35 | XMS_ITS | Encounter Summary ---
Author Organization [employer] [facility] Address [address] [place] [address] Care Team Providers Care Marketing Reporting Analyst Name Role Phone Charles Delgadillo MD Primary Care Provider [phone] Encounter Details Date Type Department Care Team (Latest Contact Info) Description 01/20/1999 Outpatient Historical [facility] Gamaliel Lara MD NO ADDRESS ON FILE Other joint derangement, not elsewhere classified, lower leg (Primary Dx); Cervical spondylosis; Follow-up examination following surgery Social History Tobacco Use Types Packs/Day Years Used Date Smoking Tobacco: Never Assessed Comments Unknown Sex and Gender Information Value Date Recorded Sex Assigned at Not on file 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 Gender Identity Not on file Sexual Orientation Not on file documented as of this encounter Plan of Treatment Not on file documented as of this encounter Visit Diagnoses Diagnosis Other joint derangement, not elsewhere classified, lower leg- Primary Cervical spondylosis Cervical spondylosis without myelopathy Follow-up examination following surgery documented in this encounter Care Teams Marketing Reporting Analyst Relationship Specialty Start Date End Date Charles Delgadillo MD [address] [place] [phone] PCP - General Family Practice 09/05/10 documented as of this encounter
--- OUTSIDE RECORDS SUMMARY | 2025-09-18 01:35 | XMS_ITS | Encounter Summary ---
Author Organization [facility] Address [address] [place] [address] Care Team Providers Care Band Top Maker Name Role Phone Charles Delgadillo MD Primary Care Provider [phone] Encounter Details Date Type Department Care Team (Latest Contact Info) Description 09/10/2000 Outpatient [facility] Family Medicine [place] 104 [facility] 60 [place] [address] Thomas Anne MD [address] [address] Other and unspecified hyperlipidemia (Primary Dx); Osteoarthrosis, unspecified whether generalized or localized, unspecified site Social History Tobacco Use Types Packs/Day Years Used Date Smoking Tobacco: Never Assessed Comments Unknown Sex and Gender Information Value Date Recorded Sex Assigned at Not on file Legal Sex Female 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
--- OUTSIDE RECORDS SUMMARY | 2025-09-18 01:35 | XMS_ITS | Encounter Summary ---
Author Organization [facility] Address [address] 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
--- OUTSIDE RECORDS SUMMARY | 2025-09-18 01:35 | XMS_ITS | Encounter Summary ---
Author Organization [facility] Address [address] [place] [address] Care Team Providers Care Pitch Worker Name Role Phone Charles Delgadillo MD Primary Care Provider [phone] Encounter Details Date Type Department Care Team (Latest Contact Info) Description 12/12/1998 Outpatient [facility] Family Medicine [place] 104 [facility] 60 [place] [address] Thomas Anne MD [address] [address] Unspecified essential hypertension (Primary Dx); Acute upper respiratory infections of unspecified site Social History Tobacco Use Types Packs/Day Years Used Date Smoking Tobacco: Never Assessed Comments Unknown Sex and Gender Information Value Date Recorded Sex Assigned at Not on file 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
--- OUTSIDE RECORDS SUMMARY | 2025-09-18 01:35 | XMS_ITS | Encounter Summary ---
Author Organization [employer] [facility] Address [address] [place] [address] Care Team Providers Care Billing Department Supervisor Name Role Phone Charles Delgadillo MD Primary Care Provider [phone] Encounter Details Date Type Department Care Team (Latest Contact Info) Description 07/04/1999 Outpatient Historical [facility] Gamaliel Lara MD NO ADDRESS ON FILE Chondromalacia patellae (Primary Dx); Degeneration of lumbar or lumbosacral intervertebral disc; Pain in joint, shoulder region; Follow-up examination following surgery Social History Tobacco Use Types Packs/Day Years Used Date Smoking Tobacco: Never Assessed Comments Unknown Sex and Gender Information Value Date Recorded Sex Assigned at Not on file Legal Sex Female 5:59 AM SUPERVISOR 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 Gender Identity Not on file Sexual Orientation Not on file documented as of this encounter Plan of Treatment Not on file documented as of this encounter Visit Diagnoses Diagnosis Chondromalacia patellae- Primary Chondromalacia of patella Degeneration of lumbar or lumbosacral intervertebral disc Pain in joint, shoulder region Follow-up examination following surgery documented in this encounter Care Teams Billing Department Supervisor Relationship Specialty Start Date End Date Charles Delgadillo MD [address] [place] [address] PCP - General Family Practice 09/05/10 documented as of this encounter
--- OUTSIDE RECORDS SUMMARY | 2025-09-18 01:35 | XMS_ITS | Encounter Summary ---
Author Organization [facility] Address [address] [place] [address] Care Team Providers Care Rfid Technician Name Role Phone Charles Delgadillo MD Primary Care Provider [phone] Encounter Details Date Type Department Care Team (Late st Contact Info) Description 03/13/2000 Outpatient Historical [facility] Neurology [address] [facility], [address] [place] [address] Tristen Aragon MD [address] [place] [address] Unspecified cerebral artery occlusion with cerebral infarction (Primary Dx) Social History Tobacco Use Types Packs/Day Years Used Date Smoking Tobacco: Never Assessed Comments Unknown Sex and Gender Information Value Date Recorded Sex Assigned at Not on file Legal Sex Female 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
--- OUTSIDE RECORDS SUMMARY | 2025-09-18 01:35 | XMS_ITS | Encounter Summary ---
Author Organization [facility] Address [address] [place] [address] Care Team Providers Care Change Management Director Name Role Phone Charles Delgadillo MD Primary Care Provider [phone] Encounter Details Date Type Department Care Team (Latest Contact Info) Description 10/10/2000 Outpatient [facility] Family Medicine [place] 104 [facility] 60 [place] [address] Thomas Anne MD [address] [address] Myalgia and myositis, unspecified (Primary Dx); Other specified arthropathy, site unspecified Social History Tobacco Use Types Packs/Day Years Used Date Smoking Tobacco: Never Assessed Comments Unknown Sex and Gender Information Value Date Recorded Sex Assigned at Not on file Legal Sex Female 5:59 AM 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
--- OUTSIDE RECORDS SUMMARY | 2025-09-18 01:35 | XMS_ITS | Encounter Summary ---
Author Organization [facility] Address [address] [place] [address] Care Team Providers Care Slip Laster Name Role Phone Charles Delgadillo MD Primary Care Provider [phone] Encounter Details Date Type Department Care Team (Latest Contact Info) Description 06/24/2000 Outpatient [facility] Medicine [place] 104 [facility] [place] 60 [place] [phone] Thomas Anne MD [address] [phone] Myalgia and myositis, unspecified (Primary Dx); Depressive disorder, not elsewhere classified Social History Tobacco Use Types Packs/Day Years Used Date Smoking Tobacco: Never Assessed Comments Unknown Sex and Gender Information Value Date Recorded Sex Assigned at Not on file Legal Sex Female 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
--- OUTSIDE RECORDS SUMMARY | 2025-09-18 01:35 | XMS_ITS | Encounter Summary ---
Author Organization [facility] Address [address] [place] [address] Care Team Providers Care Criminal Psychologist Name Role Phone Charles Delgadillo MD Primary Care Provider [phone] Encounter Details Date Type Department Care Team (Latest Contact Info) Description 03/20/1999 Outpatient Historical [facility] Rheumatology- [facility] [address] [place] [phone] Myalgia and myositis, unspecified (Primary Dx); Sleep disturbance, unspecified Social History Tobacco Use Types Packs/Day Years Used Date Smoking Tobacco: Never Assessed Comments Unknown Sex and Gender Information Value Date Recorded Sex Assigned at Not on file Legal Sex Female 5:59 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
--- OUTSIDE RECORDS SUMMARY | 2025-09-18 01:35 | XMS_ITS | Encounter Summary ---
Author Organization [facility] Address [address] [place] [address] Care Team Providers Care Home Health Nurse Licensed Practical Name Role Phone Charles Delgadillo MD Primary Care Provider Encounter Details Date Type Department Care Team (Latest Contact Info) Description 04/23/2000 Outpatient [facility] Medicine [place] 104 [facility] 60 [place] [address] Thomas Anne MD [address] [address] Dizziness and giddiness (Primary Dx); CVA Social History Tobacco Use Types Packs/Day Years Used Date Smoking Tobacco: Never Assessed Comments Unknown Sex and Gender Information Value Date Recorded Sex Assigned at Not on file Legal Sex Female 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
--- OUTSIDE RECORDS SUMMARY | 2025-09-18 01:35 | XMS_ITS | Encounter Summary ---
Author Organization [employer] [facility] Address [address] [place] [address] Care Team Providers Care Shock Absorption Floor Layer Name Role Phone Charles Delgadillo MD Primary Care Provider [phone] Encounter Details Date Type Department Care Team (Latest Contact Info) Description 08/18/2018 [facility] [address] [address] Charles Delgadillo MD [address] [place] [address] Visit for screening mammogram Social History Tobacco Use Types Packs/Day Years Used Date Smoking Tobacco: Never Smokeless Tobacco: Never Alcohol Use Standard Drinks/Week Comments No 0 (1 standard drink = 0.6 oz pur e alcohol) Comments No Sex and Gender Information Value Date Recorded Sex Assigned at Not on file Legal Sex Female 5:59 AM MIGRATION AGENT Gender Identity Not on file Sexual Orientation Not on file 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 Not on file Not on file Not on file disabled Not on file Not on file Not on file Not on file Not on file Not on file Not on file Not on file Not on file Not on file Not on file documented as of this encounter Plan of Treatment Not on file documented as of this encounter Visit Diagnoses Diagnosis Visit for screening mammogram Other screening mammogram documented in this encounter Additional Health Concerns Assessment Noted Time PHQ-9 Depression Total Score: 1 09/06/20 17 10:00 AM MIGRATION AGENT documented as of this encounter Care Teams Shock Absorption Floor Layer Relationship Specialty Start Date End Date Charles Delgadillo MD [address] [place] [address] PCP - General Family Practice 09/05/10 documented as of this encounter
--- OUTSIDE RECORDS SUMMARY | 2025-09-18 01:35 | XMS_ITS | Encounter Summary ---
Author Organization [facility] Address [address] [place] [address] Care Team Providers Care Catalogue Maker Name Role Phone Charles Delgadillo MD Primary Care Provider [phone] Encounter Details Date Type Department Care Team (Latest Contact Info) Description 07/12/2000 Outpatient [facility] Family Medicine [place] 104 [facility] 60 [place] [address] Thomas Anne MD [address] [address] Myalgia and myositis, unspecified (Primary Dx); Depressive disorder, not elsewhere classified; Need for prophylactic vaccination against Streptococcus pneumoniae (pneumococcus) Social History Tobacco Use Types Packs/Day Years Used Date Smoking Tobacco: Never Assessed Comments Unknown Sex and Gender Information Value Date Recorded Sex Assigned at Not on file Legal 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 Gender Identity Not on file Sexual Orientation Not on file documented as of this encounter Plan of Treatment Not on file documented as of this encounter Visit Diagnoses Diagnosis Myalgia and myositis, unspecified- Primary Mylagia and myositis, unspecified Depressive disorder, not elsewhere classified Need for prophylactic vaccination against Streptococcus pneumoniae (pneumococcus) Need for prophylactic vaccination against streptococcus pneumoniae (pneumococcus) documented in this encounter Care Teams Catalogue Maker Relationship Specialty Start Date End Date Charles Delgadillo MD [address] [place] [address] PCP - General Family Practice 09/05/10 documented as of this encounter
--- OUTSIDE RECORDS SUMMARY | 2025-09-18 01:35 | XMS_ITS | Encounter Summary ---
Author Organization [facility] Address [address] [place] [address] Care Team Providers Care Stretching Machine Tender Frame Name Role Phone Charles Delgadillo MD Primary Care Provider [phone] Encounter Details Date Type Department Care Team (Latest Contact Info) Description 11/21/2000 Outpatient [facility] Family Medicine [place] 104 [facility] 60 [place] [address] Thomas Anne MD [address] [address] Cramp of limb (Primary Dx); Pain in limb Social History Tobacco Use Types Packs/Day Years Used Date Smoking Tobacco: Never Assessed Comments Unknown Sex and Gender Information Value Date Recorded Sex Assigned at Not on file Legal Sex Female 5:59 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
--- OUTSIDE RECORDS SUMMARY | 2025-09-18 01:35 | XMS_ITS | Encounter Summary ---
Author Organization [employer] [facility] Address [address] [place] [address] Care Team Providers Care Manager Of Tires Sales Name Role Phone Charles Delgadillo MD Primary Care Provider [phone] Encounter Details Date Type Department Care Team (Latest Contact Info) Description 06/06/1999 Outpatient Historical [facility] Gamaliel Lara MD NO ADDRESS ON FILE Chondromalacia (Primary Dx); Follow-up examination following surgery Social History Tobacco Use Types Packs/Day Years Used Date Smoking Tobacco: Never Assessed Comments Unknown Sex and Gender Information Value Date Recorded Sex Assigned at Not on file Legal Sex Female 5:59 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
--- OUTSIDE RECORDS SUMMARY | 2025-09-18 01:35 | XMS_ITS | Encounter Summary ---
Author Organization [facility] Address [address] [place] [address] Care Team Providers Care Composite Technician Name Role Phone Charles Delgadillo MD Primary Care Provider [phone] Encounter Details Date Type Department Care Team (Latest Contact Info) Description 04/09/2000 Outpatient [facility] Medicine [place] 104 [facility] 60 [place] [address] Thomas Anne MD [address] [phone] Pain in joint, shoulder region (Primary Dx); Myalgia and myositis, unspecified Social History Tobacco Use Types Packs/Day Years Used Date Smoking Tobacco: Never Assessed Comments Unknown Sex and Gender Information Value Date Recorded Sex Assigned at Not on file Legal Sex Female 5:59 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
--- OUTSIDE RECORDS SUMMARY | 2025-09-18 01:35 | XMS_ITS | Encounter Summary ---
Author Organization [facility] Address [address] [place] [address] Care Team Providers Care Risk Assessment Consultant Name Role Phone Charles Delgadillo MD Primary Care Provider [phone] Encounter Details Date Type Department Care Team (Late st Contact Info) Description 01/12/2000 Outpatient Historical [facility] Rheumat[facility]- [facility] [address] [place] [address] Mark Butler DO [address] [facility] [address] [place] [address] Rheumatism, unspecified and fibrositis (Primary Dx); Disturbance of salivary secretion Social History Tobacco Use Types Packs/Day Years Used Date Smoking Tobacco: Never Assessed Comments Unknown Sex and Gender Information Value Date Recorded Sex Assigned at Not on file Legal Sex Female 5:59 AM MAT MAKER Gender Identity Not on file Sexual Orientation Not on file documented as of this encounter Plan of Treatment Not on file documented as of this encounter Visit Diagnoses Diagnosis Rheumatism, unspecified and fibrositis- Primary Disturbance of salivary secretion documented in this encounter Care Teams Risk Assessment Consultant Relationship Specialty Start Date End Date Charles Delgadillo MD [address] [place] [phone] PCP - General Family Practice 09/05/10 documented as of this encounter
--- OUTSIDE RECORDS SUMMARY | 2025-09-18 01:35 | XMS_ITS | Encounter Summary ---
Author Organization [facility] Address [address] [place] [address] Care Team Providers Care Manager Architectural Name Role Phone Charles Delgadillo MD Primary Care Provider Encounter Details Date Type Department Care Team (Latest Contact Info) Description 09/05/[address] 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
--- OUTSIDE RECORDS SUMMARY | 2025-09-18 01:35 | XMS_ITS | Encounter Summary ---
Author Organization [employer] [facility] Address [address] [place] [address] Care Team Providers Care Extension Course Counselor Name Role Phone Charles Delgadillo MD Primary Care Provider [phone] Encounter Details Date Type Department Care Team (Latest Contact Info) Description 02/17/1999 Outpatient Historical [facility] Gamaliel Lara MD NO ADDRESS ON FILE Chondromalacia patellae (Primary Dx); Chondromalacia; Cervical spondylosis; Follow-up examination following surgery Social History Tobacco Use Types Packs/Day Years Used Date Smoking Tobacco: Never Assessed Comments Unknown Sex and Gender Information Value Date Recorded Sex Assigned at Not on file Legal 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 Female 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 Gender Identity Not on file Sexual Orientation Not on file documented as of this encounter Plan of Treatment Not on file documented as of this encounter Visit Diagnoses Diagnosis Chondromalacia patellae- Primary Chondromalacia of patella Chondromalacia Cervical spondylosis Cervical spondylosis without myelopathy Follow-up examination following surgery documented in this encounter Care Teams Extension Course Counselor Relationship Specialty Start Date End Date Charles Delgadillo MD [address] [place] [phone] PCP - General Family Practice 09/05/10 documented as of this encounter
--- OUTSIDE RECORDS SUMMARY | 2025-09-18 01:35 | XMS_ITS | Encounter Summary ---
Author Organization [facility] Address [address] [place] [address] Care Team Providers Care Side Stapler Name Role Phone Charles Delgadillo MD Primary Care Provider [phone] Encounter Details Date Type Department Care Team (Latest Contact Info) Description 11/18/1998 Outpatient Historical [facility] Olu Pineda Jr., MD [facility] [place] [phone] Dietary surveil/business and financial counsel (Primary Dx) Social History Tobacco Use Types Packs/Day Years Used Date Smoking Tobacco: Never Assessed Comments Unknown Sex and Gender Information Value Date Recorded Sex Assigned at Not on file Legal Sex Female 5:59 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
--- OUTSIDE RECORDS SUMMARY | 2025-09-18 01:35 | XMS_ITS | Encounter Summary ---
Author Organization [facility] Address [address] [place] [address] Care Team Providers Care Appeals Referee Name Role Phone Charles Delgadillo MD Primary Care Provider [phone] Encounter Details Date Type Department Care Team (Latest Contact Info) Description 01/26/2000 Outpatient [facility] Medicine [place] [address] [facility] [address] [place] [address] Thomas Anne MD [address] [address] Myalgia and myositis, unspecified (Primary Dx); Dizziness and giddiness Social History Tobacco Use Types Packs/Day Years Used Date Smoking Tobacco: Never Assessed Comments Unknown Sex and Gender Information Value Date Recorded Sex Assigned at Not on file Legal 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
--- OUTSIDE RECORDS SUMMARY | 2025-09-18 01:35 | XMS_ITS | Encounter Summary ---
Author Organization [facility] Address [address] [place] [address] Care Team Providers Care Economic Research Assistant Name Role Phone Charles Delgadillo MD Primary Care Provider [phone] Encounter Details Date Type Department Care Team (Latest Contact Info) Description 12/20/1998 Outpatient Historical [facility] Rheumatology- [facility] [address] [place] [address] Myalgia and myositis, unspecified (Primary Dx); Sleep disturbance, unspecified; Abnormality of gait Social History Tobacco Use Types Packs/Day Years Used Date Smoking Tobacco: Never Assessed Comments Unknown Sex and Gender Information Value Date Recorded Sex Assigned at Not on file Legal Sex Female 5:59 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
--- OUTSIDE RECORDS SUMMARY | 2025-09-18 01:35 | XMS_ITS | Encounter Summary ---
Author Organization [facility] Address [address] [place] [address] Care Team Providers Care Quality Process Engineer Name Role Phone Charles Delgadillo MD Primary Care Provider [phone] Encounter Details Date Type Department Care Team (Latest Contact Info) Description 05/08/1999 Outpatient [facility] Medicine [place] [facility] [address] [place] [address] Thomas Anne MD [address] [phone] Screening for malignant neoplasm of the cervix (Primary Dx); Myalgia and myositis, unspecified; Screening for malignant neoplasm of the rectum Social History Tobacco Use Types Packs/Day Years Used Date Smoking Tobacco: Never Assessed Comments Unknown Sex and Gender Information Value Date Recorded Sex Assigned at Not on file Legal Sex Female 5:59 AM SPRING FITTER Gender Identity Not on file Sexual Orientation Not on file documented as of this encounter Plan of Treatment Not on file documented as of this encounter Visit Diagnoses Diagnosis Screening for malignant neoplasm of the cervix- Primary Myalgia and myositis, unspecified Mylagia and myositis, unspecified Screening for malignant neoplasm of the rectum documented in this encounter Care Teams Quality Process Engineer Relationship Specialty Start Date End Date Charles Delgadillo MD [address] [place] [address] PCP - General Family Practice 09/05/10 documented as of this encounter
--- OUTSIDE RECORDS SUMMARY | 2025-09-18 01:35 | XMS_ITS | Encounter Summary ---
Author Organization [facility] Address [address] [place] [address] Care Team Providers Care Jewel Flat Surfacer Name Role Phone Charles Delgadillo MD Primary Care Provider [phone] Encounter Details Date Type Department Care Team (Late st Contact Info) Description 07/03/2000 Outpatient Historical [facility] Rheumatology- [facility] [address] [place] [address] Mark Butler DO [address] [facility] [address] [place] [address] General symptoms NEC (Primary Dx); Undiff somatoform disord; Depressive disorder, not elsewhere classified Social History Tobacco Use Types Packs/Day Years Used Date Smoking Tobacco: Never Assessed Comments Unknown Sex and Gender Information Value Date Recorded Sex Assigned at Not on file Legal Sex Female 5:59 AM MAIL OFFICER Gender Identity Not on file Sexual Orientation Not on file documented as of this encounter Plan of Treatment Not on file documented as of this encounter Visit Diagnoses Diagnosis General symptoms NEC- Primary Other general symptoms 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
--- OUTSIDE RECORDS SUMMARY | 2025-09-18 01:35 | XMS_ITS | Encounter Summary ---
Author Organization [employer] [facility] Address [address] [place] [address] Care Team Providers Care Chief Station Engineer Name Role Phone Charles Delgadillo MD Primary Care Provider [phone] Reason for Referral * Radiology Services (Routine) - Closed Specialty Diagnoses / Procedures Referred By Contchrissy t Referred To Contact Diagnoses Visit for screening mammogram Procedures MAMMO 3D SCREEN BILATERAL MOBILE Charles Delgadillo MD [address] [place] [address] Phone: tel: fax: Referral ID Status Reason Start Date Expiration Date Visits Re quested Visits Authorized [id number] Closed 11/06/2018 12/07/2019 1 1 E MACHINE OPERATOR Encounter Details Date Type Department Care Team (Latest Contact Info) Description 11/06/2018 Ancillary Orders [facility] [address] [address] Charles Delgadillo MD [address] [place] [address] Visit for screening mammogram Social History Tobacco Use Types Packs/Day Years Used Date Smoking Tobacco: Never Smokeless Tobacco: Never Alcohol Use Standard Drinks/Week Comments No 0 (1 standard drink = 0.6 oz pur e alcohol) Comments No Sex and Gender Information Value Date Recorded Sex Assigned at Not on file Legal Sex Female 5:59 AM MOVIE MACHINE OPERATOR Gender Identity Not on file Sexual Orientation Not on file 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 Not on file Not on file Not on file disabled Not on file Not on file Not on file Not on file Not on file Not on file Not on file Not on file Not on file Not on file Not on file documented as of this encounter Plan of Treatment Not on file documented as of this encounter Results * MAMMO 3D SCREEN BILATERAL MOBILE (11/12/2018 12:23 PM MOVIE MACHINE OPERATOR) Anatomical Region Laterality Modality Breast Bilateral Mammography Narrative 11/14/2018 6:28 AM MOVIE MACHINE OPERATOR Bilateral Mammogram Reason for Exam: Screening Comparison: Compared to: 09/12/2017 MAMMO SCRN BILAT MOBILE W OR WO CAD, 08/21/2016 MAMMO DIGITAL SCREEN BILAT MOBILE, 08/16/2015 MAMMO DIGITAL SCREEN BILAT MOBILE, 08/17/2014 MAMMO DIGITAL SCREEN BILAT MOBILE, and 05/20/2013 MAMMO DIGITAL SCREEN BILAT MOBILE Findings: Bilateral CC and MLO views were obtained. This examination was reviewed with the aid of a computer-aided detection system(CAD). Breast Composition: There are scattered areas of fibroglandular density. There are no suspicious masses, areas of architectural distortions, or microcalcifications to suggest malignancy. No significant new findings since the prior mammogram(s). Impression: Negative screening mammogram. Recommendation: Routine annual follow-up Overall Assessment: Birads Category 1: Negative Charles Delgadillo MD MAMMO ORDERABLES Final Result documented in this encounter Visit Diagnoses Diagnosis Visit for screening mammogram Other screening mammogram Visit for screening mammogram Other screening mammogram documented in this encounter Additional Health Concerns Assessment Noted Time PHQ-9 Depression Total Score: 1 09/24/19 19 8:00 AM MOVIE MACHINE OPERATOR documented as of this encounter Care Teams Chief Station Engineer Relationship Specialty Start Date End Date Charles Delgadillo MD [address] [place] [address] PCP - General Family Practice 09/05/10 documented as of this encounter
--- OUTSIDE RECORDS SUMMARY | 2025-09-18 01:35 | XMS_ITS | Encounter Summary ---
Author Organization [facility] Address [address] [place] [address] Care Team Providers Care Hog Ringer Name Role Phone Charles Delgadillo MD Primary Care Provider [phone] Encounter Details Date Type Department Care Team (Latest Contact Info) Description 01/30/1999 Outpatient [facility] Family Medicine [place] [address] [facility] [address] [place] [address] Thomas Anne MD [address] [address] Allergy, unspecified not elsewhere classified (Primary Dx) Social History Tobacco Use Types Packs/Day Years Used Date Smoking Tobacco: Never Assessed Comments Unknown Sex and Gender Information Value Date Recorded Sex Assigned at Not on file Legal Sex Female 5:59 AM MEDICAL CLAIMS PROCESSOR Gender Identity Not on file Sexual Orientation Not on file documented as of this encounter Plan of Treatment Not on file documented as of this encounter Visit Diagnoses Diagnosis Allergy, unspecified not elsewhere classified- Primary documented in this encounter Care Teams Hog Ringer Relationship Specialty Start Date End Date Charles Delgadillo MD [address] [place] [address] PCP - General Family Practice 09/05/10 documented as of this encounter
--- OUTSIDE RECORDS SUMMARY | 2025-09-18 01:35 | XMS_ITS | Encounter Summary ---
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); Cervicalgia Social History Tobacco Use Types Packs/Day Years Used Date Smoking Tobacco: Never Assessed Comments Unknown Sex and Gender Information Value Date Recorded Sex Assigned at Not on file Legal Sex Female 5:59 AM TRAFFIC MONITOR SPECIALIST Gender Identity Not on file Sexual Orientation Not on file documented as of this encounter Plan of Treatment Not on file documented as of this encounter Visit Diagnoses Diagnosis Unspecified cerebral artery occlusion with cerebral infarction- Primary Cervicalgia documented in this encounter Care Teams Lamp Developer Relationship Specialty Start Date End Date Charles Delgadillo MD [address] [place] [phone] PCP - General Family Practice 09/05/10 documented as of this encounter
--- OUTSIDE RECORDS SUMMARY | 2025-09-18 01:35 | XMS_ITS | Encounter Summary ---
Author Organization [facility] Address [address] [place] [address] Care Team Providers Care Aerotriangulation Specialist Name Role Phone Charles Delgadillo MD Primary Care Provider [phone] Encounter Details Date Type Department Care Team (Latest Contact Info) Description 09/19/1999 Outpatient Historical [facility] Family Medicine [address] [phone] Jameel Rodriguez DO NO ADDRESS ON FILE Pneumonia, organism unspecified(486) (Primary Dx) Social History Tobacco Use Types Packs/Day Years Used Date Smoking Tobacco: Never Assessed Comments Unknown Sex and Gender Information Value Date Recorded Sex Assigned at Not on file Legal Sex Female 5:59 AM DIGITAL MARKETING STRATEGIST Gender Identity Not on file Sexual Orientation Not on file documented as of this encounter Plan of Treatment Not on file documented as of this encounter Visit Diagnoses Diagnosis Pneumonia, organism unspecified(486)- Primary Pneumonia, organism unspecified documented in this encounter Care Teams Aerotriangulation Specialist Relationship Specialty Start Date End Date Charles Delgadillo MD [address] [place] [address] PCP - General Family Practice 09/05/10 documented as of this encounter
--- OUTSIDE RECORDS SUMMARY | 2025-09-18 01:35 | XMS_ITS | Encounter Summary ---
Author Organization [facility] Address [address] [facility] Attn: Epic Prelude ADT [place] [address] Care Team Providers Care Undraped Artist Model Name Role Phone Charles Delgadillo MD Primary Care Provider [phone] Encounter Details Date Type Department Care Team (Late st Contact Info) Description 11/21/2000 Outpatient Historical Thomas Anne MD [address] [phone] Social History Tobacco Use Types Packs/Day Years Used Date Smoking Tobacco: Never Assessed Comments Unknown Sex and Gender Information Value Date Recorded Sex Assigned at Not on file Legal Sex Female 5:59 AM MANAGER LICENSING Gender Identity Not on file Sexual Orientation Not on file documented as of this encounter Plan of Treatment Not on file documented as of this encounter Visit Diagnoses Not on filedocumented in this encounter Care Teams Undraped Artist Model Relationship Specialty Start Date End Date Charles Delgadillo MD [address] [place] [address] PCP - General Family Practice 09/05/10 documented as of this encounter
--- OUTSIDE RECORDS SUMMARY | 2025-09-18 01:35 | XMS_ITS | Encounter Summary ---
Author Organization [facility] Address [address] [place] [address] Care Team Providers Care Multiple Drum Sander Helper Name Role Phone Charles Delgadillo MD Primary Care Provider [phone] Encounter Details Date Type Department Care Team (Latest Contact Info) Description 12/17/2000 Outpatient [facility] Family Medicine [place] [address] [facility] [address] [place] [address] Thomas Anne MD [address] [address] Allergy, unspecified not elsewhere classified (Primary Dx); Other specified arthropathy, site unspecified Social History Tobacco Use Types Packs/Day Years Used Date Smoking Tobacco: Never Assessed Comments Unknown Sex and Gender Information Value Date Recorded Sex Assigned at Not on file Legal Sex Female 5:59 AM LABOR REPRESENTATIVE Gender Identity Not on file Sexual Orientation Not on file documented as of this encounter Plan of Treatment Not on file documented as of this encounter Visit Diagnoses Diagnosis Allergy, unspecified not elsewhere classified- Primary Other specified arthropathy, site unspecified documented in this encounter Care Teams Multiple Drum Sander Helper Relationship Specialty Start Date End Date Charles Delgadillo MD [address] [place] [phone] PCP - General Family Practice 09/05/10 documented as of this encounter
--- OUTSIDE RECORDS SUMMARY | 2025-09-18 01:35 | XMS_ITS | Encounter Summary ---
Author Organization [facility] Address [address] [place] [address] Care Team Providers Care Purchase Analyst Name Role Phone Charles Delgadillo MD Primary Care Provider [phone] Encounter Details Date Type Department Care Team (Late st Contact Info) Description 04/11/2000 Outpatient Historical [facility] Rheumatology- [facility] [address] [place] [address] Mark Butler DO [address] [facility] [address] [place] [address] Rheumatism, unspecified and fibrositis (Primary Dx); Sleep disturbance, unspecified Social History Tobacco Use Types Packs/Day Years Used Date Smoking Tobacco: Never Assessed Comments Unknown Sex and Gender Information Value Date Recorded Sex Assigned at Not on file Legal Sex Female 5:59 AM PHYSICIAN INDUSTRIAL Gender Identity Not on file Sexual Orientation Not on file documented as of this encounter Plan of Treatment Not on file documented as of this encounter Visit Diagnoses Diagnosis Rheumatism, unspecified and fibrositis- Primary Sleep disturbance, unspecified documented in this encounter Care Teams Purchase Analyst Relationship Specialty Start Date End Date Charles Delgadillo MD [address] [place] [phone] PCP - General Family Practice 09/05/10 documented as of this encounter
--- OUTSIDE RECORDS SUMMARY | 2025-09-18 01:35 | XMS_ITS | Encounter Summary ---
Author Organization [facility] Address [address] [place] [address] Care Team Providers Care Fitter Placer Name Role Phone Charles Delgadillo MD Primary Care Provider [phone] Encounter Details Date Type Department Care Team (Latest Contact Info) Description 08/23/1999 Outpatient Historical [facility] Gamaliel Lara MD NO ADDRESS ON FILE Chondromalacia patellae (Primary Dx); Chondromalacia; Other joint derangement, not elsewhere classified, lower leg; Follow-up examination following surgery Social History Tobacco Use Types Packs/Day Years Used Date Smoking Tobacco: Never Assessed Comments Unknown Sex and Gender Information Value Date Recorded Sex Assigned at Not on file Legal Sex Female 5:59 AM CLOTH WEIGHER Gender Identity Not on file Sexual Orientation Not on file documented as of this encounter Plan of Treatment Not on file documented as of this encounter Visit Diagnoses Diagnosis Chondromalacia patellae- Primary Chondromalacia of patella Chondromalacia Other joint derangement, not elsewhere classified, lower leg Follow-up examination following surgery documented in this encounter Care Teams Fitter Placer Relationship Specialty Start Date End Date Charles Delgadillo MD [address] [place] [address] PCP - General Family Practice 09/05/10 documented as of this encounter
--- OUTSIDE RECORDS SUMMARY | 2025-09-18 01:35 | XMS_ITS | Encounter Summary ---
Author Organization [facility] Address [address] [place] [address] Care Team Providers Care Field Recorder Name Role Phone Charles Delgadillo MD Primary Care Provider [phone] Reason for Referral * Outpatient Services (Routine) - Closed Specialty Diagnoses / Procedures Referred By Contchrissy t Referred To Contact Diagnoses Visit for screening mammogram Procedures MAMMO SCRN BILAT MOBILE W OR WO CAD Charles Delgadillo MD [address] [place] [address] Phone: tel: fax: Referral ID Status Reason Start Date Expiration Date Visits Re quested Visits Authorized [id number] Closed 08/29/2017 09/29/2018 1 1 RITY INSTALLER Encounter Details Date Type Department Care Team (Latest Contact Info) Description 08/29/2017 Ancillary Orders [facility] [place] [address] [address] Charles Delgadillo MD [address] [place] [address] Visit for screening mammogram Social History Tobacco Use Types Packs/Day Years Used Date Smoking Tobacco: Never Smokeless Tobacco: Never Alcohol Use Standard Drinks/Week Comments No 0 (1 standard drink = 0.6 oz pur e alcohol) Comments No Sex and Gender Information Value Date Recorded Sex Assigned at Not on file Legal Sex Female 5:59 AM SECURITY INSTALLER Gender Identity Not on file Sexual Orientation Not on file 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 Not on file Not on file disabled Not on file Not on file Not on file Not on file Not on file Not on file Not on file Not on file Not on file Not on file Not on file documented as of this encounter Plan of Treatment Not on file documented as of this encounter Results * MAMMO SCRN BILAT MOBILE W OR WO CAD (09/12/2017 12:18 PM SECURITY INSTALLER) Anatomical Region Laterality Modality Breast Bilateral Mammography Narrative 09/17/2017 7:56 AM SECURITY INSTALLER Bilateral Mammogram Reason for Exam: Screening Comparison: Compared to: 08/21/2016 MAMMO DIGITAL SCREEN BILAT MOBILE, 08/16/2015 MAMMO DIGITAL SCREEN BILAT MOBILE, 08/17/2014 MAMMO DIGITAL SCREEN BILAT MOBILE, 05/20/2013 MAMMO DIGITAL SCREEN BILAT MOBILE, and 04/09/2012 MAMMO DIGITAL SCREEN BILAT MOBILE Findings: Bilateral CC and MLO views were obtained. This examination was reviewed with the aid of a computer-aided detection system(CAD). Breast Composition: There are scattered areas of fibroglandular density. There are no suspicious masses, areas of architectural distortions, or microcalcifications to suggest malignancy. No significant new findings since the prior mammogram(s). Charles Delgadillo MD MAMMO ORDERABLES Final Result documented in this encounter Visit Diagnoses Diagnosis Visit for screening mammogram Other screening mammogram Visit for screening mammogram Other screening mammogram documented in this encounter Care Teams Field Recorder Relationship Specialty Start Date End Date Charles Delgadillo MD [address] [place] [address] PCP - General Family Practice 09/05/10 documented as of this encounter
--- OUTSIDE RECORDS SUMMARY | 2025-09-18 01:35 | XMS_ITS | Encounter Summary ---
Author Organization [facility] Address [address] [place] [address] Care Team Providers Care Smelter Charger Name Role Phone Charles Delgadillo MD Primary Care Provider [phone] Encounter Details Date Type Department Care Team (Late st Contact Info) Description 10/16/1999 Outpatient Historical [facility] Rheumatology- [facility] [address] [place] [address] Mark Butler DO [address] [facility] [address] [place] [address] Myalgia and myositis, unspecified (Primary Dx) Social History Tobacco Use Types Packs/Day Years Used Date Smoking Tobacco: Never Assessed Comments Unknown Sex and Gender Information Value Date Recorded Sex Assigned at Not on file Legal Sex Female 5:59 AM UNIT RECEPTIONIST Gender Identity Not on file Sexual Orientation Not on file documented as of this encounter Plan of Treatment Not on file documented as of this encounter Visit Diagnoses Diagnosis Myalgia and myositis, unspecified- Primary Mylagia and myositis, unspecified documented in this encounter Care Teams Smelter Charger Relationship Specialty Start Date End Date Charles Delgadillo MD [address] [place] [address] PCP - General Family Practice 09/05/10 documented as of this encounter
--- OUTSIDE RECORDS SUMMARY | 2025-09-18 01:35 | XMS_ITS | Encounter Summary ---
Author Organization [facility] Address [address] [place] [address] Care Team Providers Care Business Architect Name Role Phone Charles Delgadillo MD Primary Care Provider [phone] Encounter Details Date Type Department Care Team (Latest Contact Info) Description 08/22/1999 Outpatient [facility] Family Medicine [place] [address] [facility] [address] [place] [address] Thomas Anne MD [address] [address] Acute sinusitis, unspecified (Primary Dx); Hypopotassemia Social History Tobacco Use Types Packs/Day Years Used Date Smoking Tobacco: Never Assessed Comments Unknown Sex and Gender Information Value Date Recorded Sex Assigned at Not on file Legal Sex Female 5:59 AM BEEF GRINDER Gender Identity Not on file Sexual Orientation Not on file documented as of this encounter Plan of Treatment Not on file documented as of this encounter Visit Diagnoses Diagnosis Acute sinusitis, unspecified- Primary Hypopotassemia documented in this encounter Care Teams Business Architect Relationship Specialty Start Date End Date Charles Delgadillo MD [address] [place] [address] PCP - General Family Practice 12/14/10 documented as of this encounter
--- OUTSIDE RECORDS SUMMARY | 2025-09-18 01:35 | XMS_ITS | Encounter Summary ---
Author Organization [facility] Address [address] [place] [address] Care Team Providers Care Applications Manager Name Role Phone Charles Delgadillo MD Primary Care Provider [phone] Encounter Details Date Type Department Care Team (Latest Contact Info) Description 05/01/1999 Outpatient [facility] [place] [address] [facility] [address] [place] [address] Thomas Anne MD [address] [address] Cervicalgia (Primary Dx); Myalgia and myositis, unspecified Social History Tobacco Use Types Packs/Day Years Used Date Smoking Tobacco: Never Assessed Comments Unknown Sex and Gender Information Value Date Recorded Sex Assigned at Not on file Legal Sex Female 5:59 AM CONTAINER SHOP WELDER Gender Identity Not on file Sexual Orientation Not on file documented as of this encounter Plan of Treatment Not on file documented as of this encounter Visit Diagnoses Diagnosis Cervicalgia- Primary Myalgia and myositis, unspecified Mylagia and myositis, unspecified documented in this encounter Care Teams Applications Manager Relationship Specialty Start Date End Date Charles Delgadillo MD [address] [place] [address] PCP - General Family Practice 09/05/10 documented as of this encounter
--- OUTSIDE RECORDS SUMMARY | 2025-09-18 01:35 | XMS_ITS | Encounter Summary ---
Author Organization [facility] Address [address] [place] [address] Care Team Providers Care Erecting Crane Operator Name Role Phone Charles Delgadillo MD Primary Care Provider [phone] Encounter Details Date Type Department Care Team (Latest Contact Info) Description 07/10/1999 Outpatient Historical [facility] Family Medicine [address] [phone] Jameel Rodriguez DO NO ADDRESS ON FILE Urticaria, unspecified (Primary Dx) Social History Tobacco Use Types Packs/Day Years Used Date Smoking Tobacco: Never Assessed Comments Unknown Sex and Gender Information Value Date Recorded Sex Assigned at Not on file Legal Sex Female 5:59 AM OUTREACH COORDINATOR Gender Identity Not on file Sexual Orientation Not on file documented as of this encounter Plan of Treatment Not on file documented as of this encounter Visit Diagnoses Diagnosis Urticaria, unspecified- Primary documented in this encounter Care Teams Erecting Crane Operator Relationship Specialty Start Date End Date Charles Delgadillo MD [address] [place] [address] PCP - General Family Practice 09/05/10 documented as of this encounter
--- OUTSIDE RECORDS SUMMARY | 2025-09-18 01:35 | XMS_ITS | Encounter Summary ---
Author Organization [facility] Address [address] [place] [address] Care Team Providers Care Filemaker Developer Name Role Phone Charles Delgadillo MD Primary Care Provider [phone] Encounter Details Date Type Department Care Team (Late st Contact Info) Description 07/17/1999 Outpatient Historical [facility]umatology- [facility] [address] [place] [address] Mark Butler DO [address] [facility] [address] [place] [address] Myalgia and myositis, unspecified (Primary Dx); Sleep disturbance, unspecified Social History Tobacco Use Types Packs/Day Years Used Date Smoking Tobacco: Never Assessed Comments Unknown Sex and Gender Information Value Date Recorded Sex Assigned at Not on file Legal Sex Female 5:59 AM OFFICE ADMINISTRATIVE ASSISTANT Gender Identity Not on file Sexual Orientation Not on file documented as of this encounter Plan of Treatment Not on file documented as of this encounter Visit Diagnoses Diagnosis Myalgia and myositis, unspecified- Primary Mylagia and myositis, unspecified Sleep disturbance, unspecified documented in this encounter Care Teams Filemaker Developer Relationship Specialty Start Date End Date Charles Delgadillo MD [address], [place] [address] PCP - General Family Practice 09/05/10 documented as of this encounter
--- OUTSIDE RECORDS SUMMARY | 2025-09-18 01:35 | XMS_ITS | Encounter Summary ---
Author Organization [facility] Address [address] [place] [address] Care Team Providers Care Wireless Construction Manager Name Role Phone Charles Delgadillo MD Primary Care Provider [phone] Encounter Details Date Type Department Care Team (Latest Contact Info) Description 07/07/1999 [facility] [address] [phone] Jameel Rodriguez DO NO ADDRESS ON FILE Need vaccination-viral disease (Primary Dx) Social History Tobacco Use Types Packs/Day Years Used Date Smoking Tobacco: Never Assessed Comments Unknown Sex and Gender Information Value Date Recorded Sex Assigned at Not on file Legal Sex Female 5:59 AM SIZE MIXER Gender Identity Not on file Sexual Orientation Not on file documented as of this encounter Plan of Treatment Not on file documented as of this encounter Visit Diagnoses Diagnosis Need vaccination-viral disease- Primary Need for prophylactic vaccination and inoculation against other viral diseases documented in this encounter Care Teams Wireless Construction Manager Relationship Specialty Start Date End Date Charles Delgadillo MD [address] [place] [address] PCP - General Family Practice 09/05/10 documented as of this encounter
--- OUTSIDE RECORDS SUMMARY | 2025-09-18 01:35 | XMS_ITS | Encounter Summary ---
Author Organization [facility] Address [address] [place] [address] Care Team Providers Care General Practitioner Name Role Phone Charles Delgadillo MD Primary Care Provider [phone] Encounter Details Date Type Department Care Team (Latest Contact Info) Description 11/25/1998 Outpatient [facility] Family Medicine [place] [address] [facility] [address] [place] [address] Thomas Anne MD [address] [address] Unspecified essential hypertension (Primary Dx); Myalgia and myositis, unspecified Social History Tobacco Use Types Packs/Day Years Used Date Smoking Tobacco: Never Assessed Comments Unknown Sex and Gender Information Value Date Recorded Sex Assigned at Not on file Legal Sex Female 5:59 AM DISPLAY CARVER Gender Identity Not on file Sexual Orientation Not on file documented as of this encounter Plan of Treatment Not on file documented as of this encounter Visit Diagnoses Diagnosis Unspecified essential hypertension- Primary Myalgia and myositis, unspecified Mylagia and myositis, unspecified documented in this encounter Care Teams General Practitioner Relationship Specialty Start Date End Date Charles Delgadillo MD [address] [place] [address] PCP - General Family Practice 09/05/10 documented as of this encounter
--- OUTSIDE RECORDS SUMMARY | 2025-09-18 01:35 | XMS_ITS | Encounter Summary ---
Author Organization [facility] Address [address] [place] [address] Care Team Providers Care Linux Solaris Administrator Name Role Phone Charles Delgadillo MD Primary Care Provider [phone] Encounter Details Date Type Department Care Team (Latest Contact Info) Description 05/28/2000 Outpatient [facility] Family Medicine [place] [address] [facility] [address] [place] [phone] Thomas Anne MD [address] [phone] Cervicalgia (Primary Dx); CVA Social History Tobacco Use Types Packs/Day Years Used Date Smoking Tobacco: Never Assessed Comments Unknown Sex and Gender Information Value Date Recorded Sex Assigned at Not on file Legal Sex Female 5:59 AM UNIVERSITY SERVICES PROGRAM ASSOCIATE Gender Identity Not on file Sexual Orientation Not on file documented as of this encounter Plan of Treatment Not on file documented as of this encounter Visit Diagnoses Diagnosis Cervicalgia- Primary CVA Unspecified cerebral artery occlusion with cerebral infarction documented in this encounter Care Teams Linux Solaris Administrator Relationship Specialty Start Date End Date Charles Delgadillo MD [address] [place] [address] PCP - General Family Practice 09/05/10 documented as of this encounter
--- OUTSIDE RECORDS SUMMARY | 2025-09-18 01:35 | XMS_ITS | Encounter Summary ---
Author Organization [facility] Address [address] [facility] Attn: Epic Prelude ADT ANGELICA DAVIS [address] Care Team Providers Care Test Conductor Name Role Phone Charles Delgadillo MD Primary Care Provider [phone] Encounter Details Date Type Department Care Team (Late st Contact Info) Description 10/10/2000 Outpatient Historical [place] Anne MD [address] [phone] Social History Tobacco Use Types Packs/Day Years Used Date Smoking Tobacco: Never Assessed Comments Unknown Sex and Gender Information Value Date Recorded Sex Assigned at Not on file Legal Sex Female 5:59 AM CAKE BATTER MIXER Gender Identity Not on file Sexual Orientation Not on file documented as of this encounter Plan of Treatment Not on file documented as of this encounter Visit Diagnoses Not on filedocumented in this encounter Care Teams Test Conductor Relationship Specialty Start Date End Date Charles Delgadillo MD [address] [place] [address] PCP - General Family Practice 09/05/10 documented as of this encounter
--- OUTSIDE RECORDS SUMMARY | 2025-09-18 01:36 | XMS_ITS | Encounter Summary ---
Author Organization [facility] Address [address] [place] [address] Care Team Providers Care Biology Faculty Member Name Role Phone Charles Delgadillo MD Primary Care Provider [phone] Encounter Details Date Type Department Care Team (Latest Contact Info) Description 04/06/2004 Outpatient Historical [facility] Orthopedics- 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
--- OUTSIDE RECORDS SUMMARY | 2025-09-18 01:36 | XMS_ITS | Encounter Summary ---
Author Organization [facility] Address [address] [place] [address] Care Team Providers Care Port Engineer Name Role Phone Charles Delgadillo MD Primary Care Provider [phone] Encounter Details Date Type Department Care Team (Latest Contact Info) Description 08/08/2005 Outpatient [facility] [address] [place] [address] Miller Bustos DPM NO ADDRESS ON FILE MONONEURITIS LEG NOS (Primary Dx); TARSAL TUNNEL SYNDROME; TENOSYNOVITIS FOOT/ANKLE; LOWER LEG INJURY NOS Social History Tobacco Use Types Packs/Day Years Used Date Smoking Tobacco: Never Assessed Comments Unknown Sex and Gender Information Value Date Recorded Sex Assigned at Not on file Legal Sex Female 5:59 AM LEAD CLINICAL RESEARCH COORDINATOR Gender Identity Not on file Sexual Orientation Not on file documented as of this encounter Plan of Treatment Not on file documented as of this encounter Visit Diagnoses Diagnosis Mononeuritis of lower limb, unspecified- Primary Tarsal tunnel syndrome Tenosynovitis of foot and ankle Injury, other and unspecified, knee, leg, ankle, and foot documented in this encounter Care Teams Port Engineer Relationship Specialty Start Date End Date Charles Delgadillo MD [address], [place] [address] PCP - General Family Practice 09/05/10 documented as of this encounter
--- OUTSIDE RECORDS SUMMARY | 2025-09-18 01:36 | XMS_ITS | Encounter Summary ---
Author Organization [facility] Address [address] [place] [address] Care Team Providers Care Industrial Health And Safety Professor Name Role Phone Charles Delgadillo MD Primary Care Provider [phone] Reason for Referral * Radiology Services (Routine) - Closed Specialty Diagnoses / Procedures Referred By Tisha t Referred To Contact Diagnoses Visit for screening mammogram Procedures MAMMO 3D SCREEN BILATERAL MOBILE Charles Delgadillo MD [address] [place] [address] Phone: tel: fax: Referral ID Status Reason Start Date Expiration Date Visits Re quested Visits Authorized [id number] Closed 10/19/2019 11/18/2020 1 1 RADAR OPERATOR/NAVIGATOR Encounter Details Date Type Department Care Team (Latest Contact Info) Description 10/19/2019 Ancillary Orders [facility] [address] [address] Charles Delgadillo MD [address] [place] [address] Visit for screening mammogram Social History Tobacco Use Types Packs/Day Years Used Date Smoking Tobacco: Never Smokeless Tobacco: Never Alcohol Use Standard Drinks/Week Comments No 0 (1 standard drink = 0.6 oz pur e alcohol) Comments No Sex and Gender Information Value Date Recorded Sex Assigned at Not on file Legal Sex Female 5:59 AM LCAC RADAR OPERATOR/NAVIGATOR Gender Identity Not on file Sexual Orientation Not on file 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 Not on file Not on [...] Results * MAMMO 3D SCREEN BILATERAL MOBILE (11/30/2019 2:21 PM CDT) Anatomical Region Laterality Modality Breast Bilateral Mammography Narrative 12/01/2019 3:42 PM CDT Bilateral Digital Mammogram with CAD and 3D Tomography Reason for Exam: Screening Comparison: Compared to: 11/12/2018 MAMMO 3D SCREEN BILATERAL MOBILE, 09/12/2017 MAMMO SCRN BILAT MOBILE W OR WO CAD, 08/21/2016 MAMMO DIGITAL SCREEN BILAT MOBILE, 08/16/2015 MAMMO DIGITAL SCREEN BILAT MOBILE, and 08/17/2014 MAMMO DIGITAL SCREEN BILAT MOBILE Technique: 3D MLO and CC digital tomosynthesis images were acquired and synthesized 2D images (C view) were generated. This digital mammogram was also analyzed by the Computer Aided Detection System CAD). Breast Composition: There are scattered areas of [...] Total Score: 1 09/24/19 19 8:00 AM LCAC RADAR OPERATOR/NAVIGATOR documented as of this encounter Care Teams Industrial Health And Safety Professor Relationship Specialty Start Date End Date Charles Delgadillo MD [address] [place] [address] PCP - General Family Practice 09/05/10 documented as of this encounter
--- OUTSIDE RECORDS SUMMARY | 2025-09-18 01:36 | XMS_ITS | Encounter Summary ---
Author Organization [facility] Address [address] [place] [address] Care Team Providers Care Service Writer Advisor Name Role Phone Charles Delgadillo MD Primary Care Provider Encounter Details Date Type Department Care Team (Latest Contact Info) Description 01/13/2003 Outpatient [facility] Family Medicine [place] [address] [facility] [address] [place] [address] Thomas Anne MD [address] [phone] ENLARGEMENT LYMPH NODES (Primary Dx); HYPERLIPIDEMIA NEC/NOS Social History Tobacco Use Types Packs/Day Years Used Date Smoking Tobacco: Never Assessed Comments Unknown Sex and Gender Information Value Date Recorded Sex Assigned at Not on file Legal Sex Female 5:59 AM LEAD SYSTEMS ANALYST Gender Identity Not on file Sexual Orientation Not on file documented as of this encounter Plan of Treatment Not on file documented as of this encounter Visit Diagnoses Diagnosis Enlargement of lymph nodes- Primary Other and unspecified hyperlipidemia documented in this encounter Care Teams Service Writer Advisor Relationship Specialty Start Date End Date Charles Delgadillo MD [address] [place] [address] PCP - General Family Practice 09/05/10 documented as of this encounter
--- OUTSIDE RECORDS SUMMARY | 2025-09-18 01:36 | XMS_ITS | Encounter Summary ---
Author Organization [facility] Address [address] [place] [address] Care Team Providers Care Truck Spotter Name Role Phone Charles Delgadillo MD Primary Care Provider [phone] Encounter Details Date Type Department Care Team (Latest Contact Info) Description 04/19/2004 Outpatient [facility] [address] [place] [phone] Miller Bustos DPM NO ADDRESS ON FILE TENOSYNOVITIS FOOT/ANKLE (Primary Dx) Social History Tobacco Use Types Packs/Day Years Used Date Smoking Tobacco: Never Assessed Comments Unknown Sex and Gender Information Value Date Recorded Sex Assigned at Not on file Legal Sex Female 5:59 AM LAB AID Gender Identity Not on file Sexual Orientation Not on file documented as of this encounter Plan of Treatment Not on file documented as of this encounter Visit Diagnoses Diagnosis Tenosynovitis of foot and ankle- Primary documented in this encounter Care Teams Truck Spotter Relationship Specialty Start Date End Date Charles Delgadillo MD [address] [place] [address] PCP - General Family Practice 09/05/10 documented as of this encounter
--- OUTSIDE RECORDS SUMMARY | 2025-09-18 01:36 | XMS_ITS | Encounter Summary ---
Author Organization [facility] Address [address] [place] [address] Care Team Providers Care Coroner Technician Name Role Phone Charles Delgadillo MD Primary Care Provider [phone] Encounter Details Date Type Department Care Team (Latest Contact Info) Description 08/25/2004 Outpatient [facility] Family Medicine [place] 104 [facility] [address] [place] [address] Thomas Anne MD [address] [address] ACUTE SINUSITIS NOS (Primary Dx); JOINT PAIN-UNSPEC Social History Tobacco Use Types Packs/Day Years Used Date Smoking Tobacco: Never Assessed Comments Unknown Sex and Gender Information Value Date Recorded Sex Assigned at Not on file Legal Sex Female 5:59 AM VEHICLE INSURANCE AGENT Gender Identity Not on file Sexual Orientation Not on file documented as of this encounter Plan of Treatment Not on file documented as of this encounter Visit Diagnoses Diagnosis Acute sinusitis, unspecified- Primary Pain in joint, site unspecified documented in this encounter Care Teams Coroner Technician Relationship Specialty Start Date End Date Charles Delgadillo MD [address] [place] [address] PCP - General Family Practice 09/05/10 documented as of this encounter
--- OUTSIDE RECORDS SUMMARY | 2025-09-18 01:36 | XMS_ITS | Encounter Summary ---
Author Organization [facility] Address [address] [place] [address] Care Team Providers Care Segregator Name Role Phone Charles Delgadillo MD Primary Care Provider [phone] Encounter Details Date Type Department Care Team (Latest Contact Info) Description 02/03/2004 Outpatient Historical [facility] Orthopedics- [address] [place] [address] Gamaliel Gracia MD [address] [place] [address] SHOULDER REGION DIS NEC (Primary Dx) Social History Tobacco Use Types Packs/Day Years Used Date Smoking Tobacco: Never Assessed Comments Unknown Sex and Gender Information Value Date Recorded Sex Assigned at Not on file Legal Sex Female 5:59 AM PROTECTION MGR Gender Identity Not on file Sexual Orientation Not on file documented as of this encounter Plan of Treatment Not on file documented as of this encounter Visit Diagnoses Diagnosis Other affections of shoulder region, not elsewhere classified- Primary documented in this encounter Care Teams Segregator Relationship Specialty Start Date End Date Charles Delgadillo MD [address] [place] [address] [place] [address] PCP - General Family Practice 09/05/10 documented as of this encounter
--- OUTSIDE RECORDS SUMMARY | 2025-09-18 01:36 | XMS_ITS | Encounter Summary ---
Author Organization [facility] Address [address] [facility] Attn: Epic Prelude ADT ANGELICA DAVIS [address] Care Team Providers Care Manufacturing Clerk Name Role Phone Charles Delgadillo MD Primary Care Provider [phone] Encounter Details Date Type Department Care Team (Late st Contact Info) Description 08/16/2001 Outpatient Historical Thomas Anne MD [address] [phone] Social History Tobacco Use Types Packs/Day Years Used Date Smoking Tobacco: Never Assessed Comments Unknown Sex and Gender Information Value Date Recorded Sex Assigned at Not on file Legal Sex Female 5:59 AM SOURCING MANAGER Gender Identity Not on file Sexual Orientation Not on file documented as of this encounter Plan of Treatment Not on file documented as of this encounter Visit Diagnoses Not on filedocumented in this encounter Care Teams Manufacturing Clerk Relationship Specialty Start Date End Date Charles Delgadillo MD [address] [place] [address] PCP - General Family Practice 09/05/10 documented as of this encounter
--- OUTSIDE RECORDS SUMMARY | 2025-09-18 01:36 | XMS_ITS | Encounter Summary ---
Author Organization [facility] Address [address] [place] [address] Care Team Providers Care Certified Registered Locksmith Name Role Phone Charles Delgadillo MD Primary Care Provider [phone] Encounter Details Date Type Department Care Team (Latest Contact Info) Description 10/26/2005 Outpatient [facility] Medicine [place] 104 [facility] 60 [place] [address] Thomas Anne MD [address] [phone] BRACHIAL NEURITIS NOS (Primary Dx); HYPERLIPIDEMIA NEC/NOS Social History Tobacco Use Types Packs/Day Years Used Date Smoking Tobacco: Never Assessed Comments Unknown Sex and Gender Information Value Date Recorded Sex Assigned at Not on file Legal Sex Female 5:59 AM FORM SETTER STEEL FORMS Gender Identity Not on file Sexual Orientation Not on file documented as of this encounter Plan of Treatment Not on file documented as of this encounter Visit Diagnoses Diagnosis Brachial neuritis or radiculitis NOS- Primary Brachial neuritis or radiculitis nos Other and unspecified hyperlipidemia documented in this encounter Care Teams Certified Registered Locksmith Relationship Specialty Start Date End Date Charles Delgadillo MD [address] [place] [address] PCP - General Family Practice 09/05/10 documented as of this encounter
--- OUTSIDE RECORDS SUMMARY | 2025-09-18 01:36 | XMS_ITS | Encounter Summary ---
Author Organization [facility] Address [address] [place] [address] Care Team Providers Care Laboratory Asst Name Role Phone Charles Delgadillo MD Primary Care Provider [phone] Encounter Details Date Type Department Care Team (Latest Contact Info) Description 12/10/2005 Outpatient [facility] Podiatry-[facility] [place] [address] [place] [address] Miller Bustos DPCaryl NO ADDRESS ON FILE Plantar Nerve Lesion (Primary Dx); Other Bursitis Disorders Social History Tobacco Use Types Packs/Day Years Used Date Smoking Tobacco: Never Assessed Comments Unknown Sex and Gender Information Value Date Recorded Sex Assigned at Not on file Legal Sex Female 5:59 AM BODY MASKER Gender Identity Not on file Sexual Orientation Not on file documented as of this encounter Plan of Treatment Not on file documented as of this encounter Visit Diagnoses Diagnosis Plantar nerve lesion- Primary Lesion of plantar nerve Other bursitis disorders documented in this encounter Care Teams Laboratory Asst Relationship Specialty Start Date End Date Charles Delgadillo MD [address] [place] [address] PCP - General Family Practice 09/05/10 documented as of this encounter
--- OUTSIDE RECORDS SUMMARY | 2025-09-18 01:36 | XMS_ITS | Encounter Summary ---
Author Organization [facility] Address [address] [place] [address] Care Team Providers Care Gelatin Maker Utility Name Role Phone Charles Delgadillo MD Primary Care Provider [phone] Encounter Details Date Type Department Care Team (Latest Contact Info) Description 07/05/2005 Outpatient [facility] Podiatry-[facility] [place] [address] [place] [address] Miller Bustos DPM NO ADDRESS ON FILE MONONEURITIS LEG NOS (Primary Dx); TENOSYNOVITIS FOOT/ANKLE; ACHILLES TENDINITIS Social History Tobacco Use Types Packs/Day Years Used Date Smoking Tobacco: Never Assessed Comments Unknown Sex and Gender Information Value Date Recorded Sex Assigned at Not on file Legal Sex Female 5:59 AM RADAR OPERATOR Gender Identity Not on file Sexual Orientation Not on file documented as of this encounter Plan of Treatment Not on file documented as of this encounter Visit Diagnoses Diagnosis Mononeuritis of lower limb, unspecified- Primary Tenosynovitis of foot and ankle Achilles bursitis or tendinitis documented in this encounter Care Teams Gelatin Maker Utility Relationship Specialty Start Date End Date Charles Delgadillo MD [address] [place] [address] PCP - General Family Practice 09/05/10 documented as of this encounter
--- OUTSIDE RECORDS SUMMARY | 2025-09-18 01:36 | XMS_ITS | Encounter Summary ---
Author Organization [facility] Address [address] [place] [address] Care Team Providers Care Ribbon Cleaner Name Role Phone Charles Delgadillo MD Primary Care Provider [phone] Encounter Details Date Type Department Care Team (Latest Contact Info) Description 03/29/2004 Outpatient [facility] Podiatry-[facility] [place] [address] [place] [address] Miller Bustos DPM NO ADDRESS ON FILE Plantar fibromatosis (Primary Dx); TARSAL TUNNEL SYNDROME; TENOSYNOVITIS FOOT/ANKLE; SPRAIN OF ANKLE NOS Social History Tobacco Use Types Packs/Day Years Used Date Smoking Tobacco: Never Assessed Comments Unknown Sex and Gender Information Value Date Recorded Sex Assigned at Not on file Legal Sex Female 5:59 AM VOCAL MUSIC TEACHER Gender Identity Not on file Sexual Orientation Not on file documented as of this encounter Plan of Treatment Not on file documented as of this encounter Visit Diagnoses Diagnosis Plantar fibromatosis- Primary Plantar fascial fibromatosis Tarsal tunnel syndrome Tenosynovitis of foot and ankle Sprain of ankle, unspecified site documented in this encounter Care Teams Ribbon Cleaner Relationship Specialty Start Date End Date Charles Delgadillo MD [address] [place] [address] PCP - General Family Practice 09/05/10 documented as of this encounter
--- OUTSIDE RECORDS SUMMARY | 2025-09-18 01:36 | XMS_ITS | Encounter Summary ---
Author Organization [facility] Address [address] [place] [address] Care Team Providers Care Shorthand Teacher Name Role Phone Charles Delgadillo MD Primary Care Provider [phone] Encounter Details Date Type Department Care Team (Latest Contact Info) Description 10/15/2003 Outpatient [facility] Medicine [place] 104 [facility] 60 [place] [address] Thomas Anne MD [address] [phone] JOINT PAIN-SHLDER (Primary Dx); ANXIETY STATE NOS; ALLERGY, UNSPECIFIED Social History Tobacco Use Types Packs/Day Years Used Date Smoking Tobacco: Never Assessed Comments Unknown Sex and Gender Information Value Date Recorded Sex Assigned at Not on file Legal Sex Female 5:59 AM LOBBY CONCIERGE Gender Identity Not on file Sexual Orientation Not on file documented as of this encounter Plan of Treatment Not on file documented as of this encounter Visit Diagnoses Diagnosis Pain in joint, shoulder region- Primary Anxiety state, unspecified Allergy, unspecified not elsewhere classified documented in this encounter Care Teams Shorthand Teacher Relationship Specialty Start Date End Date Charles Delgadillo MD [address] [place] [address] PCP - General Family Practice 09/05/10 documented as of this encounter
--- OUTSIDE RECORDS SUMMARY | 2025-09-18 01:36 | XMS_ITS | Encounter Summary ---
Author Organization [facility] Address [address] [place] [address] Care Team Providers Care Microfilm Clerk Name Role Phone Charles Delgadillo MD Primary Care Provider [phone] Encounter Details Date Type Department Care Team (Latest Contact Info) Description 05/08/2005 Outpatient [facility] Family Medicine [place] 104 [facility] [address] [place] [address] Thomas Anne MD [address] [address] HYPERLIPIDEMIA NEC/NOS (Primary Dx); Pain in limb Social History Tobacco Use Types Packs/Day Years Used Date Smoking Tobacco: Never Assessed Comments Unknown Sex and Gender Information Value Date Recorded Sex Assigned at Not on file Legal 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
--- OUTSIDE RECORDS SUMMARY | 2025-09-18 01:36 | XMS_ITS | Encounter Summary ---
Author Organization [facility] Address [address] [place] [address] Care Team Providers Care Rodent Control Worker Name Role Phone Charles Delgadillo MD Primary Care Provider [phone] Encounter Details Date Type Department Care Team (Latest Contact Info) Description 01/02/2005 Outpatient [facility] Medicine [place] 104 [facility] 60 [place] [address] Thomas Anne MD [address] [address] OSTEOARTHROS NOS-UNSPEC (Primary Dx); INSOMNIA NEC Social History Tobacco Use Types Packs/Day Years Used Date Smoking Tobacco: Never Assessed Comments Unknown Sex and Gender Information Value Date Recorded Sex Assigned at Not on file 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
--- OUTSIDE RECORDS SUMMARY | 2025-09-18 01:36 | XMS_ITS | Encounter Summary ---
Author Organization [facility] Address [address] [place] [address] Care Team Providers Care Reptile Farmer Name Role Phone Charles Delgadillo MD Primary Care Provider [phone] Encounter Details Date Type Department Care Team (Latest Contact Info) Description 06/06/2004 Outpatient Historical [facility] Orthopedics- [address] [place] 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
--- OUTSIDE RECORDS SUMMARY | 2025-09-18 01:36 | XMS_ITS | Encounter Summary ---
Author Organization [facility] Address [address] [place] [address] Care Team Providers Care Cutter Plastics Rolls Name Role Phone Charles Delgadillo MD Primary Care Provider Encounter Details Date Type Department Care Team (Latest Contact Info) Description 04/27/2004 Outpatient Historical [facility] Orthopedics- [address] [place] 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
--- OUTSIDE RECORDS SUMMARY | 2025-09-18 01:36 | XMS_ITS | Encounter Summary ---
Author Organization [facility] Address [address] [place] [address] Care Team Providers Care Edge Kitter Name Role Phone Charles Delgadillo MD Primary Care Provider [phone] Encounter Details Date Type Department Care Team (Latest Contact Info) Description 08/20/2005 Outpatient [facility] Family Medicine [place] [address] 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
--- OUTSIDE RECORDS SUMMARY | 2025-09-18 01:36 | XMS_ITS | Encounter Summary ---
Author Organization [facility] Address [address] [place] [address] Care Team Providers Care Lean Facilitator Name Role Phone Charles Dlegadillo MD Primary Care Provider [phone] Encounter Details Date Type Department Care Team (Late st Contact Info) Description 07/17/2002 Outpatient [facility] Family Medicine [place] 104 [facility] 60 [place] [phone] Thomas Anne MD [address] [phone] CVA (Primary Dx) Social History Tobacco Use Types Packs/Day Years Used Date Smoking Tobacco: Never Assessed Comments Unknown Sex and Gender Information Value Date Recorded Sex Assigned at Not on file Legal Sex Female 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
--- OUTSIDE RECORDS SUMMARY | 2025-09-18 01:36 | XMS_ITS | Encounter Summary ---
Author Organization [facility] Address [address] [place] [address] Care Team Providers Care Favor Maker Name Role Phone Charles Delgadillo MD Primary Care Provider Encounter Details Date Type Department Care Team (Latest Contact Info) Description 05/22/2004 Outpatient Historical [facility] [address] [place] [address] [place] [address] Gamaliel Gracia MD [address] [place] [address] PREOP CARDIOVASC EXAM (Primary Dx) Social History Tobacco Use Types Packs/Day Years Used Date Smoking Tobacco: Never Assessed Comments Unknown Sex and Gender Information Value Date Recorded Sex Assigned at Not on file Legal Sex Female 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
--- OUTSIDE RECORDS SUMMARY | 2025-09-18 01:36 | XMS_ITS | Encounter Summary ---
Author Organization [facility] Address [address] [place] [address] Care Team Providers Care Property Assessment Monitor Name Role Phone Charles Delgadillo MD Primary Care Provider [phone] Encounter Details Date Type Department Care Team (Latest Contact Info) Description 02/23/2002 Outpatient [facility] Family Medicine [place] 104 [facility] 60 [place] [address] Thomas Anne MD [address] [address] UNSPEC CONSTIPATION (Primary Dx); General symptoms NEC Social History Tobacco Use Types Packs/Day Years Used Date Smoking Tobacco: Never Assessed Comments Unknown Sex and Gender Information Value Date Recorded Sex Assigned at Not on file Legal Sex Female 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
--- OUTSIDE RECORDS SUMMARY | 2025-09-18 01:36 | XMS_ITS | Encounter Summary ---
Author Organization [facility] Address [address] [place] [address] Care Team Providers Care Checker Stocker Name Role Phone Charles Delgadillo MD Primary Care Provider [phone] Encounter Details Date Type Department Care Team (Latest Contact Info) Description 05/14/[address] [facility] Family Medicine [place] 104 [facility] 60 [place] [address] Thomas Anne MD [address] [phone] HYPOTHYROIDISM NOS (Primary Dx) Social History Tobacco Use Types Packs/Day Years Used Date Smoking Tobacco: Never Assessed Comments Unknown Sex and Gender Information Value Date Recorded Sex Assigned at Not on file Legal Sex Female 5:59 AM EVS ATTENDANT Gender Identity Not on file Sexual Orientation Not on file documented as of this encounter Plan of Treatment Not on file documented as of this encounter Visit Diagnoses Diagnosis Unspecified hypothyroidism- Primary documented in this encounter Care Teams Checker Stocker Relationship Specialty Start Date End Date Charles Delgadillo MD [address] [place] [address] PCP - General Family Practice 09/05/10 documented as of this encounter
--- OUTSIDE RECORDS SUMMARY | 2025-09-18 01:36 | XMS_ITS | Encounter Summary ---
Author Organization [employer] Address [address] [place] [address] Care Team Providers Care Chairlift Operator Name Role Phone Charles Delgadillo MD Primary Care Provider [phone] Encounter Details Date Type Department Care Team (Late st Contact Info) Description 10/26/2005 Outpatient Historical [facility] Thomas Anne MD [address] [phone] Social History Tobacco Use Types Packs/Day Years Used Date Smoking Tobacco: Never Assessed Comments Unknown Sex and Gender Information Value Date Recorded Sex Assigned at Not on file Legal Sex Female 5:59 AM CAR ATTENDANT Gender Identity Not on file Sexual Orientation Not on file documented as of this encounter Plan of Treatment Not on file documented as of this encounter Visit Diagnoses Not on filedocumented in this encounter Care Teams Chairlift Operator Relationship Specialty Start Date End Date Charles Delgadillo MD [address] [place] [address] PCP - General Family Practice 09/05/10 documented as of this encounter
--- OUTSIDE RECORDS SUMMARY | 2025-09-18 01:36 | XMS_ITS | Encounter Summary ---
Author Organization [facility] Address [address] [place] [address] Care Team Providers Care Blaster Helper Name Role Phone Charles Delgadillo MD Primary Care Provider [phone] Encounter Details Date Type Department Care Team (Late st Contact Info) Description 11/27/2005 Outpatient Historical [facility] [address] [facility], [address] [place] [address] Tristen Aragon MD [address] [place] [address] Cervicalgia (Primary Dx) Social History Tobacco Use Types Packs/Day Years Used Date Smoking Tobacco: Never Assessed Comments Unknown Sex and Gender Information Value Date Recorded Sex Assigned at Not on file Legal Sex Female 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
--- OUTSIDE RECORDS SUMMARY | 2025-09-18 01:36 | XMS_ITS | Encounter Summary ---
Author Organization [facility] Address [address] Attn: Epic Prelude ADT ANGELICA DAVIS [address] Care Team Providers Care Mandate Retail Service Merchandiser Name Role Phone Charles Delgadillo MD Primary Care Provider [phone] Encounter Details Date Type Department Care Team (Late st Contact Info) Description 05/19/2002 Outpatient Historical Thomas Anne MD [address] [phone] Social History Tobacco Use Types Packs/Day Years Used Date Smoking Tobacco: Never Assessed Comments Unknown Sex and Gender Information Value Date Recorded Sex Assigned at Not on file Legal 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
--- OUTSIDE RECORDS SUMMARY | 2025-09-18 01:36 | XMS_ITS | Encounter Summary ---
Author Organization [facility] Address [address] [place] [address] Care Team Providers Care Adjunct Phlebotomy Instructor Name Role Phone Charles Delgadillo MD Primary Care Provider [phone] Encounter Details Date Type Department Care Team (Latest Contact Info) Description 06/03/2001 Outpatient [facility] Medicine [place] [address] [facility] [address] [place] [address] Thomas Anne MD [address] [address] Dyshidrosis (Primary Dx); Headache(784.0) Social History Tobacco Use Types Packs/Day Years Used Date Smoking Tobacco: Never Assessed Comments Unknown Sex and Gender Information Value Date Recorded Sex Assigned at Not on file Legal Sex Female 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
--- OUTSIDE RECORDS SUMMARY | 2025-09-18 01:36 | XMS_ITS | Encounter Summary ---
Author Organization [facility] Address [address] [place] [address] Care Team Providers Care Quality Assurance Qa Lab Technician Name Role Phone Charles Delgadillo MD Primary Care Provider [phone] Encounter Details Date Type Department Care Team (Late st Contact Info) Description 09/11/2001 Outpatient Historical [facility] Rheumatology- [facility] [place] [address] [place] [address] Mark Butler DO [address] [facility] [address] [place] [address] MUSCLE/LIGAMENT DIS NOS (Primary Dx); ABN SERUM ENZY LEVEL NEC; Elevated sediment rate Social History Tobacco Use Types Packs/Day Years Used Date Smoking Tobacco: Never Assessed Comments Unknown Sex and Gender Information Value Date Recorded Sex Assigned at Not on file Legal Sex Female 5:[address]JECT MANAGER Gender Identity Not on file Sexual Orientation Not on file documented as of this encounter Plan of Treatment Not on file documented as of this encounter Visit Diagnoses Diagnosis Unspecified disorder of muscle, ligament, and fascia- Primary Other nonspecific abnormal serum enzyme levels Elevated sediment rate Elevated sedimentation rate documented in this encounter Care Teams Quality Assurance Qa Lab Technician Relationship Specialty Start Date End Date Charles Delgadillo MD [address], [place] [address] PCP - General Family Practice 09/05/10 documented as of this encounter
--- OUTSIDE RECORDS SUMMARY | 2025-09-18 01:36 | XMS_ITS | Encounter Summary ---
Author Organization [facility] Address [address] [place] [address] Care Team Providers Care Fur Repair Inspector Name Role Phone Charles Delgadillo MD Primary Care Provider [phone] Encounter Details Date Type Department Care Team (Late st Contact Info) Description 10/16/[address] [facility] Rheumatology- [facility] [address] [place] [address] Mark Butler DO [address] [facility] [address] [place] [address] MYOPATHY NOS (Primary Dx); RHEUMATISM NOS Social History Tobacco Use Types Packs/Day Years Used Date Smoking Tobacco: Never Assessed Comments Unknown Sex and Gender Information Value Date Recorded Sex Assigned at Not on file Legal Sex Female 5:59 AM BEATER OUT Gender Identity Not on file Sexual Orientation Not on file documented as of this encounter Plan of Treatment Not on file documented as of this encounter Visit Diagnoses Diagnosis Myopathy, unspecified- Primary Rheumatism, unspecified and fibrositis documented in this encounter Care Teams Fur Repair Inspector Relationship Specialty Start Date End Date Charles Delgadillo MD [address] [place] [address] PCP - General Family Practice 09/05/10 documented as of this encounter
--- OUTSIDE RECORDS SUMMARY | 2025-09-18 01:36 | XMS_ITS | Encounter Summary ---
Author Organization [facility] Address [address] [place] [address] Care Team Providers Care Landscape Foreman Name Role Phone Charles Delgadillo MD Primary Care Provider [phone] Encounter Details Date Type Department Care Team (Latest Contact Info) Description 07/18/2004 Outpatient [facility] Medicine [place] [address] [facility] 60 [place] [address] Thomas Anne MD [address] [address] OSTEOARTHROS NOS-UNSPEC (Primary Dx); HYPERLIPIDEMIA NEC/NOS Social History Tobacco Use Types Packs/Day Years Used Date Smoking Tobacco: Never Assessed Comments Unknown Sex and Gender Information Value Date Recorded Sex Assigned at Not on file 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
--- OUTSIDE RECORDS SUMMARY | 2025-09-18 01:36 | XMS_ITS | Encounter Summary ---
Author Organization [facility] Address [address] [place] [address] Care Team Providers Care Broach Trouble Shooter Name Role Phone Charles Delgadillo MD Primary Care Provider [phone] Reason for Referral * Outpatient Services (Routine) - Closed Specialty Diagnoses / Procedures Referred By Tisha troncoso Referred To Contact Diagnoses Screening mammogram Procedures MAMMO SCREENING BILAT MOBILE Shanika Zavala FNP [address] [place] [address] Phone: tel: fax: Referral ID Status Reason Start Date Expiration Date Visits Re quested Visits Authorized [id number] Closed 04/04/2011 04/03/2012 1 1 Encounter Details Date Type Department Care Team (Late st Contact Info) Description 04/04/2011 Ancillary Orders [facility] [address] 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 This examination was reviewed with the aid of a computer-aided detection system(CAD). The breast tissue density is average. No significant new findings since the prior mammogram(s). Procedure Note Fernando White MD - 04/05/2011 Bilateral Mammogram Reason for Exam: Screening Comparison: Comparison is made with the prior exam(s) dated3+08 Findings: Bilateral CC and MLO views were obtained. This examination was reviewed with the aid of a computer-aided detectionsystem(CAD). The breast tissue density is average. No significant new findings since the prior mammogram(s). Shanika Zavala SALES PROGRAM COORDINATOR MAMMO ORDERABLES Final Result documented in this encounter Visit Diagnoses Diagnosis Screening mammogram Other screening mammogram Screening mammogram Other screening mammogram documented in this encounter Care Teams Broach Trouble Shooter Relationship Specialty Start Date End Date Charles Delgadillo MD [address] [place] [address] PCP - General Family Practice 09/05/10 documented as of this encounter
--- OUTSIDE RECORDS SUMMARY | 2025-09-18 01:36 | XMS_ITS | Encounter Summary ---
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) Social History Tobacco Use Types Packs/Day Years Used Date Smoking Tobacco: Never Assessed Comments Unknown Sex and Gender Information Value Date Recorded Sex Assigned at Not on file Legal Sex Female 5:59 AM LICENSED 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
--- OUTSIDE RECORDS SUMMARY | 2025-09-18 01:36 | XMS_ITS | Encounter Summary ---
Author Organization [facility] Address [address] [place] [address] Care Team Providers Care Bobbin Inspector Name Role Phone Charles Delgadillo MD Primary Care Provider [phone] Encounter Details Date Type Department Care Team (Latest Contact Info) Description 07/13/2002 Outpatient [facility] Family Medicine [place] [address] [facility] 60 [place] [address] Thomas Anne MD [address] [phone] VACCINE FOR INFLUENZA (Primary Dx) Social History Tobacco Use Types Packs/Day Years Used Date Smoking Tobacco: Never Assessed Comments Unknown Sex and Gender Information Value Date Recorded Sex Assigned at Not on file Legal 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
--- OUTSIDE RECORDS SUMMARY | 2025-09-18 01:36 | XMS_ITS | Encounter Summary ---
Author Organization [facility] Address [address] [place] [address] Care Team Providers Care Color Printer Operator Name Role Phone Charles Delgadillo MD Primary Care Provider [phone] Encounter Details Date Type Department Care Team (Latest Contact Info) Description 05/19/2002 Outpatient [facility] Family Medicine [place] [address] [facility] 60 [place] [phone] Thomas Anne MD [address] [address] Gynecologic examination (Primary Dx); SCREENING MAL NEOP-BREAST,UNSPEC Social History Tobacco Use Types Packs/Day Years Used Date Smoking Tobacco: Never Assessed Comments Unknown Sex and Gender Information Value Date Recorded Sex Assigned at Not on file Legal Sex Female 5:59 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
--- OUTSIDE RECORDS SUMMARY | 2025-09-18 01:36 | XMS_ITS | Encounter Summary ---
Author Organization [facility] Address [address] [place] [address] Care Team Providers Care Non Morse Intercept Technician Name Role Phone Charles Delgadillo MD Primary Care Provider [phone] Encounter Details Date Type Department Care Team (Late st Contact Info) Description 06/11/2001 Outpatient Historical [facility] Reg Lyon MD [address] [place], [place] [phone] Loss of teeth due to trauma, extraction, or periodontal disease (Primary Dx) Social History Tobacco Use Types Packs/Day Years Used Date Smoking Tobacco: Never Assessed Comments Unknown Sex and Gender Information Value Date Recorded Sex Assigned at Not on file Legal Sex Female 5:59 AM SENIOR COMMISSARY AGENT Gender Identity Not on file Sexual Orientation Not on file documented as of this encounter Plan of Treatment Not on file documented as of this encounter Visit Diagnoses Diagnosis Loss of teeth due to trauma, extraction, or periodontal disease- Primary documented in this encounter Care Teams Non Morse Intercept Technician Relationship Specialty Start Date End Date Charles Delgadillo MD [address] [address] PCP - General Family Practice 09/05/10 documented as of this encounter
--- OUTSIDE RECORDS SUMMARY | 2025-09-18 01:36 | XMS_ITS | Encounter Summary ---
Author Organization [facility] Address [address] [place] [address] Care Team Providers Care Billing Collections Specialist Name Role Phone Charles Delgadillo MD Primary Care Provider [phone] Encounter Details Date Type Department Care Team (Latest Contact Info) Description 03/20/2004 Outpatient [facility] Family Medicine [place] [address] [facility] 60 [place] [address] Thomas Anne MD [address] [phone] CALCANEAL SPUR (Primary Dx); OSTEOPOROSIS NOS Social History Tobacco Use Types Packs/Day Years Used Date Smoking Tobacco: Never Assessed Comments Unknown Sex and Gender Information Value Date Recorded Sex Assigned at Not on file 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
--- OUTSIDE RECORDS SUMMARY | 2025-09-18 01:36 | XMS_ITS | Encounter Summary ---
Author Organization [facility] Address [address] [place] [address] Care Team Providers Care Antique Jewelry Repairer Name Role Phone Charles Delgadillo MD Primary Care Provider [phone] Encounter Details Date Type Department Care Team (Latest Contact Info) Description 06/05/2005 [facility]patient [facility] [address] [place] [address] Miller Bustos DPM NO ADDRESS ON FILE LOWER LEG INJURY NOS (Primary Dx); MONONEURITIS LEG NOS; Plantar fibromatosis Social History Tobacco Use Types Packs/Day Years Used Date Smoking Tobacco: Never Assessed Comments Unknown Sex and Gender Information Value Date Recorded Sex Assigned at Not on file Legal Sex Female 5:59 AM DIGITAL FORENSICS 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
--- OUTSIDE RECORDS SUMMARY | 2025-09-18 01:36 | XMS_ITS | Encounter Summary ---
Author Organization [facility] Address [address] [place] [address] Care Team Providers Care Cost Accountant Name Role Phone Chrales Delgadillo MD Primary Care Provider [phone] Encounter Details Date Type Department Care Team (Latest Contact Info) Description 08/20/2005 Outpatient [facility] Family Medicine [place] 104 [facility] 60 [place] [address] Thomas Anne MD [address] [phone] ROUTINE DRAWING TENDER EXAMINATION (Primary Dx) Social History Tobacco Use Types Packs/Day Years Used Date Smoking Tobacco: Never Assessed Comments Unknown Sex and Gender Information Value Date Recorded Sex Assigned at Not on file Legal 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
--- OUTSIDE RECORDS SUMMARY | 2025-09-18 01:36 | XMS_ITS | Encounter Summary ---
Author Organization [facility] Address [address] [place] [address] Care Team Providers Care Group Reservations Coordinator Name Role Phone Charles Delgadillo MD Primary Care Provider [phone] Encounter Details Date Type Department Care Team (Latest Contact Info) Description 05/23/2004 Outpatient Historical [facility] [address] [place] [address] [place] [address] [phone] Gamaliel Gracia MD [address] [place] [address] SHOULDER REGION DIS NEC (Primary Dx) Social History Tobacco Use Types Packs/Day Years Used Date Smoking Tobacco: Never Assessed Comments Unknown Sex and Gender Information Value Date Recorded Sex Assigned at Not on file Legal 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
--- OUTSIDE RECORDS SUMMARY | 2025-09-18 01:36 | XMS_ITS | Encounter Summary ---
Author Organization [facility] Address [address] [facility] [address] Care Team Providers Care Technical Expert Name Role Phone Charles Delgadillo MD Primary Care Provider [phone] Encounter Details Date Type Department Care Team (Late st Contact Info) Description 10/27/2003 Outpatient Historical [facility] Imaging Services [place] [address] [address] [facility] [place] [phone] Gamaliel Gracia MD [address] [place] [phone] Social History Tobacco Use Types Packs/Day Years Used Date Smoking Tobacco: Never Assessed Comments Unknown Sex and Gender Information Value Date Recorded Sex Assigned at Not on file Legal Sex Female 5:59 AM OFFICE SERVICES CLERK Gender Identity Not on file Sexual Orientation Not on file documented as of this encounter Plan of Treatment Not on file documented as of this encounter Visit Diagnoses Not on filedocumented in this encounter Care Teams Technical Expert Relationship Specialty Start Date End Date Charles Delgadillo MD [address] [place] [address] PCP - General Family Practice 09/05/10 documented as of this encounter
--- OUTSIDE RECORDS SUMMARY | 2025-09-18 01:36 | XMS_ITS | Encounter Summary ---
Author Organization [facility] Address [address] [place] [address] Care Team Providers Care Conservation Worker Name Role Phone Charles Delgadillo MD Primary Care Provider [phone] Encounter Details Date Type Department Care Team (Latest Contact Info) Description 10/22/2001 Outpatient Historical [facility] Family Medicine [place] 104 [facility] 60 [place] [phone] Jameel Rodriguez DO NO ADDRESS ON FILE URIN TRACT INFECTION NOS (Primary Dx) Social History Tobacco Use Types Packs/Day Years Used Date Smoking Tobacco: Never Assessed Comments Unknown Sex and Gender Information Value Date Recorded Sex Assigned at Not on file Legal Sex Female 5:59 AM JEWEL GRINDER Gender Identity Not on file Sexual Orientation Not on file documented as of this encounter Plan of Treatment Not on file documented as of this encounter Visit Diagnoses Diagnosis Urinary tract infection, site not specified- Primary documented in this encounter Care Teams Conservation Worker Relationship Specialty Start Date End Date Charles Delgadillo MD [address] [place] [address] PCP - General Family Practice 09/05/10 documented as of this encounter
--- OUTSIDE RECORDS SUMMARY | 2025-09-18 01:36 | XMS_ITS | Encounter Summary ---
Author Organization [facility] Address [address] [place] [address] Care Team Providers Care Delivery Truck Driver Heavy Name Role Phone Charles Delgadillo MD Primary Care Provider [phone] Encounter Details Date Type Department Care Team (Latest Contact Info) Description 10/27/2001 Outpatient [facility] Family Medicine [place] 104 [facility] 60 [place] [phone] Thomas Anne MD [address] [phone] URIN TRACT INFECTION NOS (Primary Dx) Social History Tobacco Use Types Packs/Day Years Used Date Smoking Tobacco: Never Assessed Comments Unknown Sex and Gender Information Value Date Recorded Sex Assigned at Not on file Legal Sex Female 5:59 AM 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
--- OUTSIDE RECORDS SUMMARY | 2025-09-18 01:36 | XMS_ITS | Encounter Summary ---
Author Organization [facility] Address [address] [place] [address] Care Team Providers Care Trauma Counsellor Name Role Phone Charles Delgadillo MD Primary Care Provider [phone] Encounter Details Date Type Department Care Team (Latest Contact Info) Description 03/16/2002 Outpatient Historical [facility] Family Medicine [address] [phone] Samuel Chen MD ABDOMINAL PAIN UNSPEC SITE (Primary Dx) Social History Tobacco Use Types Packs/Day Years Used Date Smoking Tobacco: Never Assessed Comments Unknown Sex and Gender Information Value Date Recorded Sex Assigned at Not on file Legal Sex Female 5:59 AM HOSPITAL NURSING ASSISTANT Gender Identity Not on file Sexual Orientation Not on file documented as of this encounter Plan of Treatment Not on file documented as of this encounter Visit Diagnoses Diagnosis Abdominal pain, unspecified site- Primary documented in this encounter Care Teams Trauma Counsellor Relationship Specialty Start Date End Date Charles Delgadillo MD [address] [place] [address] PCP - General Family Practice 09/05/10 documented as of this encounter
--- OUTSIDE RECORDS SUMMARY | 2025-09-18 01:36 | XMS_ITS | Encounter Summary ---
Author Organization [facility] Address [address] [place] [address] Care Team Providers Care Sticker Operator Name Role Phone Charles Delgadillo MD Primary Care Provider [phone] Encounter Details Date Type Department Care Team (Latest Contact Info) Description 11/03/2001 Outpatient [facility] Family Medicine [place] 104 [facility] 60 [place] [phone] Thomas Anne MD [address] [phone] URIN TRACT INFECTION NOS (Primary Dx) Social History Tobacco Use Types Packs/Day Years Used Date Smoking Tobacco: Never Assessed Comments Unknown Sex and Gender Information Value Date Recorded Sex Assigned at Not on file Legal Sex Female 5:59 AM PODIATRIST ORTHOPEDIC Gender Identity Not on file Sexual Orientation Not on file documented as of this encounter Plan of Treatment Not on file documented as of this encounter Visit Diagnoses Diagnosis Urinary tract infection, site not specified- Primary documented in this encounter Care Teams Sticker Operator Relationship Specialty Start Date End Date Charles Delgadillo MD [address] [place] [address] PCP - General Family Practice 09/05/10 documented as of this encounter
--- OUTSIDE RECORDS SUMMARY | 2025-09-18 01:36 | XMS_ITS | Encounter Summary ---
Author Organization [facility] Address [address] [place] [address] Care Team Providers Care Prospecting Driller Name Role Phone Charles Delgadillo MD Primary Care Provider [phone] Encounter Details Date Type Department Care Team (Latest Contact Info) Description 03/08/2005 Outpatient Historical [facility] Medicine [address] [phone] Rita Chand MD NO ADDRESS ON FILE URIN TRACT INFECTION NOS (Primary Dx); ALLERGIC RHINITIS NOS Social History Tobacco Use Types Packs/Day Years Used Date Smoking Tobacco: Never Assessed Comments Unknown Sex and Gender Information Value Date Recorded Sex Assigned at Not on file Legal Sex Female 5:59 AM ENVELOPE STUFFER Gender Identity Not on file Sexual Orientation Not on file documented as of this encounter Plan of Treatment Not on file documented as of this encounter Visit Diagnoses Diagnosis Urinary tract infection, site not specified- Primary Allergic rhinitis, cause unspecified documented in this encounter Care Teams Prospecting Driller Relationship Specialty Start Date End Date Charles Delgadillo MD [address] [place] [address] PCP - General Family Practice 09/05/10 documented as of this encounter
--- OUTSIDE RECORDS SUMMARY | 2025-09-18 01:36 | XMS_ITS | Encounter Summary ---
Author Organization [facility] Address [address] [place] [address] Care Team Providers Care Vessel Captain Name Role Phone Charles Delgadillo MD Primary Care Provider [phone] Encounter Details Date Type Department Care Team (Latest Contact Info) Description 07/17/2004 Outpatient Historical [facility] [place] [address] [place] [address] [place] Bustos DPM NO ADDRESS ON FILE TARSAL TUNNEL SYNDROME (Primary Dx) Social History Tobacco Use Types Packs/Day Years Used Date Smoking Tobacco: Never Assessed Comments Unknown Sex and Gender Information Value Date Recorded Sex Assigned at Not on file Legal Sex Female 5:59 AM 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
--- OUTSIDE RECORDS SUMMARY | 2025-09-18 01:36 | XMS_ITS | Encounter Summary ---
Author Organization [facility] Address [address] [place] [address] Care Team Providers Care Chef Concierge Name Role Phone Charles Delgadillo MD Primary Care Provider [phone] Encounter Details Date Type Department Care Team (Latest Contact Info) Description 10/27/2004 Outpatient [facility] Medicine [place] 104 [facility] 60 [place] [address] Thomas Anne MD [address] [phone] PITYRIASIS VERSICOLOR (Primary Dx); HYPERLIPIDEMIA NEC/NOS; HYPOTHYROIDISM NOS Social History Tobacco Use Types Packs/Day Years Used Date Smoking Tobacco: Never Assessed Comments Unknown Sex and Gender Information Value Date Recorded Sex Assigned at Not on file Legal 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
--- OUTSIDE RECORDS SUMMARY | 2025-09-18 01:36 | XMS_ITS | Encounter Summary ---
Author Organization [facility] Address [address] [place] [address] Care Team Providers Care Furnace Erector Name Role Phone Charles Delgadillo MD Primary Care Provider [phone] Encounter Details Date Type Department Care Team (Latest Contact Info) Description 01/22/2003 Outpatient [facility] Family Medicine [place] 104 [facility] 60 [place] [phone] Thomas Anne MD [address] [phone] JOINT PAIN-SHLDER (Primary Dx); CERVICALGIA Social History Tobacco Use Types Packs/Day Years Used Date Smoking Tobacco: Never Assessed Comments Unknown Sex and Gender Information Value Date Recorded Sex Assigned at Not on file Legal Sex Female 5:59 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
--- OUTSIDE RECORDS SUMMARY | 2025-09-18 01:36 | XMS_ITS | Encounter Summary ---
Author Organization [facility] Address [address] [place] [address] Care Team Providers Care Emergency Medicine Physician Assistant Name Role Phone Charles Delgadillo MD Primary Care Provider [phone] Encounter Details Date Type Department Care Team (Latest Contact Info) Description 10/06/2001 Outpatient Historical [facility] Family Medicine [place] 104 [facility] 60 [place] [phone] Thomas Anne MD [address] [phone] HYPERLIPIDEMIA NEC/NOS (Primary Dx) Social History Tobacco Use Types Packs/Day Years Used Date Smoking Tobacco: Never Assessed Comments Unknown Sex and Gender Information Value Date Recorded Sex Assigned at Not on file Legal Sex Female 5:59 AM BARK TANNER Gender Identity Not on file Sexual Orientation Not on file documented as of this encounter Plan of Treatment Not on file documented as of this encounter Visit Diagnoses Diagnosis Other and unspecified hyperlipidemia- Primary documented in this encounter Care Teams Emergency Medicine Physician Assistant Relationship Specialty Start Date End Date Charles Delgadillo MD [address] [place] [address] PCP - General Family Practice 09/05/10 documented as of this encounter
--- OUTSIDE RECORDS SUMMARY | 2025-09-18 01:36 | XMS_ITS | Encounter Summary ---
Author Organization [facility] Address [address] [place] [address] Care Team Providers Care Drill Sharpener Operator Name Role Phone Charles Delgadillo MD Primary Care Provider [phone] Encounter Details Date Type Department Care Team (Latest Contact Info) Description 12/06/2003 Outpatient Historical [facility] Orthopedics- [address] [place] [address] Gamaliel Gracia MD [address] [place] [phone] SHOULDER REGION DIS NEC (Primary Dx) Social History Tobacco Use Types Packs/Day Years Used Date Smoking Tobacco: Never Assessed Comments Unknown Sex and Gender Information Value Date Recorded Sex Assigned at Not on file Legal Sex Female 5:59 AM BENDER HELPER Gender Identity Not on file Sexual Orientation Not on file documented as of this encounter Plan of Treatment Not on file documented as of this encounter Visit Diagnoses Diagnosis Other affections of shoulder region, not elsewhere classified- Primary documented in this encounter Care Teams Drill Sharpener Operator Relationship Specialty Start Date End Date Charles Delgadillo MD [address] [place] [address] PCP - General Family Practice 09/05/10 documented as of this encounter
--- OUTSIDE RECORDS SUMMARY | 2025-09-18 01:36 | XMS_ITS | Encounter Summary ---
Author Organization [facility] Address [address] [place] [address] Care Team Providers Care Director Broadcast Name Role Phone Norman Caldera MD Primary Care Provider [phone] Reason for Visit * Reason Onset Date Comments Need records faxed 04/25/2021 Encounter Details Date Type Department Care Team (Late st Contact Info) Description 04/25/2021 Telephone [facility] Contact Center Clinics [address] [facility] [address] [place] [address] Charles Delgadillo MD [address] [place] [phone] Need records faxed Social History Tobacco Use Types Packs/Day Years Used Date Smoking Tobacco: Never Smokeless Tobacco: Never Alcohol Use Standard Drinks/Week Comments No 0 (1 standard drink = 0.6 oz pur e alcohol) Comments No Sex and Gender Information Value Date Recorded Sex Assigned at Not on file Legal Sex Female 2:09 AM PUBLIC SAFETY OFFICER Gender Identity Not on file Sexual Orientation Not on file COVID-19 Exposure Response Date Recorded In the last month, have you been in contact with someone who was confirmed or suspected to have Coronavirus / COVID-19? No / Unsure 04/11/2021 3:04 PM CDT documented as of this encounter Miscellaneous Notes * Telephone Encounter - Savanna Negrete - 05/03/2021 5:11 PM CDT Completed * Telephone Encounter - RonyEllyn - 04/25/2021 4:33 PM CDT Shabnam banuelos/ Dr[facility]: Need A1C results from 02/13 faxed over. documented in this encounter Plan of Treatment Upcoming Encounters Date Type Department Care Team (Late st Contact Info) Description 11/16/2025 11:40 AM PUBLIC SAFETY OFFICER Office Visit [address] [address] Norman Caldera MD [address] [address] 02/01/2026 9:30 AM CDT Office Visit [facility] Gastroenterology- [place] [address] [address] Deepthi Ray, UNIVERSITY ADMINISTRATIVE ASSISTANT [address] [address] documented as of this encounter Visit Diagnoses Not on filedocumented in this encounter Care Teams Director Broadcast Relationship Specialty Start Date End Date Norman Caldera MD [address] [place] [address] PCP - General Family Practice 09/06/23 documented as of this encounter
--- OUTSIDE RECORDS SUMMARY | 2025-09-18 01:36 | XMS_ITS | Encounter Summary ---
Author Organization [facility] Address [address] [place] [address] Care Team Providers Care Casing In Line Setter Name Role Phone Charles Delgadillo MD Primary Care Provider Encounter Details Date Type Department Care Team (Latest Contact Info) Description 05/22/2004 Outpatient [facility] [place] [address] [place] [address] [place] Bustos DPM NO ADDRESS ON FILE LOWER LEG INJURY NOS (Primary Dx); MONONEURITIS LEG NOS; Pain in limb; TARSAL TUNNEL SYNDROME Social History Tobacco Use Types Packs/Day Years Used Date Smoking Tobacco: Never Assessed Comments Unknown Sex and Gender Information Value Date Recorded Sex Assigned at Not on file Legal Sex Female 5:59 AM DIRECTOR STRATEGY Gender Identity Not on file Sexual Orientation Not on file documented as of this encounter Plan of Treatment Not on file documented as of this encounter Visit Diagnoses Diagnosis Injury, other and unspecified, knee, leg, ankle, and foot- Primary Mononeuritis of lower limb, unspecified Pain in limb Pain in soft tissues of limb Tarsal tunnel syndrome documented in this encounter Care Teams Casing In Line Setter Relationship Specialty Start Date End Date Charles Delgadillo MD [address] [place] [address] PCP - General Family Practice 09/05/10 documented as of this encounter
--- OUTSIDE RECORDS SUMMARY | 2025-09-18 01:36 | XMS_ITS | Encounter Summary ---
Author Organization [facility] Address [address] [facility] Attn: Epic Prelude ADT [place] [address] Care Team Providers Care Blow Mold Operator Name Role Phone Charles Delgadillo MD Primary Care Provider [phone] Encounter Details Date Type Department Care Team (Late st Contact Info) Description 08/29/2001 Outpatient Historical Thomas Anne MD [address] [phone] Social History Tobacco Use Types Packs/Day Years Used Date Smoking Tobacco: Never Assessed Comments Unknown Sex and Gender Information Value Date Recorded Sex Assigned at Not on file Legal Sex Female 5:59 AM RAIL EQUIPMENT OPERATOR Gender Identity Not on file Sexual Orientation Not on file documented as of this encounter Plan of Treatment Not on file documented as of this encounter Visit Diagnoses Not on filedocumented in this encounter Care Teams Blow Mold Operator Relationship Specialty Start Date End Date Charles Delgadillo MD [address] [place] [address] PCP - General Family Practice 09/05/10 documented as of this encounter
--- OUTSIDE RECORDS SUMMARY | 2025-09-18 01:36 | XMS_ITS | Encounter Summary ---
Author Organization [facility] Address [address] [place] [address] Care Team Providers Care Endocrinologist Name Role Phone Charles Delgadillo MD Primary Care Provider [phone] Encounter Details Date Type Department Care Team (Latest Contact Info) Description 06/29/2003 Outpatient Historical [facility] Family Medicine [place] [address] [phone] Jameel Rodriguez DO NO ADDRESS ON FILE Vaccine for influenza (Primary Dx) Social History Tobacco Use Types Packs/Day Years Used Date Smoking Tobacco: Never Assessed Comments Unknown Sex and Gender Information Value Date Recorded Sex Assigned at Not on file Legal Sex Female 5:59 AM CASINO CHANGE ATTENDANT Gender Identity Not on file Sexual Orientation Not on file documented as of this encounter Plan of Treatment Not on file documented as of this encounter Visit Diagnoses Diagnosis Vaccine for influenza- Primary Need for prophylactic vaccination and inoculation against influenza documented in this encounter Care Teams Endocrinologist Relationship Specialty Start Date End Date Charles Delgadillo MD [address] [place] [address] PCP - General Family Practice 09/05/10 documented as of this encounter
--- OUTSIDE RECORDS SUMMARY | 2025-09-18 01:36 | XMS_ITS | Encounter Summary ---
Author Organization [facility] Address [address] [place] [address] Care Team Providers Care Manager Local Name Role Phone Charles Delgadillo MD Primary Care Provider [phone] Encounter Details Date Type Department Care Team (Latest Contact Info) Description 05/11/2004 Outpatient [facility]iatry[facility] [address] [place] [phone] [place] Bustos DPM NO ADDRESS ON FILE TENOSYNOVITIS FOOT/ANKLE (Primary Dx) Social History Tobacco Use Types Packs/Day Years Used Date Smoking Tobacco: Never Assessed Comments Unknown Sex and Gender Information Value Date Recorded Sex Assigned at Not on file Legal Sex Female 5:59 AM PROMOTIONS REPRESENTATIVE Gender Identity Not on file Sexual Orientation Not on file documented as of this encounter Plan of Treatment Not on file documented as of this encounter Visit Diagnoses Diagnosis Tenosynovitis of foot and ankle- Primary documented in this encounter Care Teams Manager Local Relationship Specialty Start Date End Date Charles Delgadillo MD [address] [address] PCP - General Family Practice 09/05/10 documented as of this encounter
--- OUTSIDE RECORDS SUMMARY | 2025-09-18 01:36 | XMS_ITS | Encounter Summary ---
Author Organization [facility] Address [address] [place] [address] Care Team Providers Care Skiagrapher Name Role Phone Charles Delgadillo MD Primary Care Provider [phone] Reason for Referral * Outpatient Services (Routine) - Closed Specialty Diagnoses / Procedures Referred By Contac t Referred To Contact Radiology Diagnoses Other screening mammogram Procedures MAMMO DIGITIZED STUDY Shanika Zavala FNP [address] [place] [address] Phone: tel: fax: [facility] [address] [address] Phone: tel: fax: Referral ID Status Reason Start Date Expiration Date Visits Re quested Visits Authorized [id number] Closed 04/07/2012 04/07/2013 1 1 * Outpatient Services (Routine) - Closed Specialty Diagnoses / Procedures Referred By Contchrissy t Referred To Contact Radiology Diagnoses Other screening mammogram Procedures MAMMO DIGITIZED STUDY Shanika Zavala FNP [address] [place] [address] Phone: tel: fax: [facility] [address] [place] [address] Phone: tel: fax: Referral ID Status Reason Start Date Expiration Date Visits Re quested Visits Authorized [id number] Closed 04/07/2012 04/07/2013 1 1 Encounter Details Date Type Department Care Team (Latest Contact Info) Description 04/07/2012 Ancillary Orders [facility] [place] [address] [place] [address] Shanika Zavala FNP [address] [place] [address] Other screening mammogram Social History Tobacco Use Types Packs/Day Years Used Date Smoking Tobacco: Never Smokeless Tobacco: Never Alcohol Use Standard Drinks/Week Comments No 0 (1 standard drink = 0.6 oz pur e alcohol) Comments No Sex and Gender Information Value Date Recorded Sex Assigned at Not on file Legal Sex Female 5:59 AM EQUIPMENT OPERATOR WAGE HAND Gender Identity Not on file Sexual Orientation Not on file 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 Exam was auto-finalized. Procedure Note Amita Najera - 04/07/2012 Order information only. Exam was auto-finalized. Shanika [facility] ORDERABLES Final Result * MAMMO DIGITIZED STUDY (04/12/2008 11:09 AM CDT) Narrative Amita Najera - 04/07/2012 11:09 AM CDT Order information only. Exam was auto-finalized. Procedure Note Amita Najera - 04/07/2012 Order information only. Exam was auto-finalized. us Shanika Zavala [employer]UCT[facility] ORDERABLES Final Result documented in this encounter Visit Diagnoses Diagnosis Other screening mammogram Other screening mammogram Other screening mammogram documented in this encounter Care Teams Skiagrapher Relationship Specialty Start Date End Date Charles Delgadillo MD [address] [place] [address] PCP - General Family Practice 09/05/10 documented as of this encounter
--- OUTSIDE RECORDS SUMMARY | 2025-09-18 01:36 | XMS_ITS | Encounter Summary ---
Author Organization [facility] Address [address] [place] [address] Care Team Providers Care Jive Developer Name Role Phone Charles Delgadillo MD Primary Care Provider [phone] Encounter Details Date Type Department Care Team (Latest Contact Info) Description 08/29/2001 Outpatient [facility] Family Medicine [place] 104 [facility] 60 [place] [address] Thomas Anne MD [address] [address] MYALGIA AND MYOSITIS NOS (Primary Dx); ABN SERUM ENZY LEVEL NEC Social History Tobacco Use Types Packs/Day Years Used Date Smoking Tobacco: Never Assessed Comments Unknown Sex and Gender Information Value Date Recorded Sex Assigned at Not on file Legal Sex Female 5:59 AM FOOD AND BEVERAGE ORDER CLERK Gender Identity Not on file Sexual Orientation Not on file documented as of this encounter Plan of Treatment Not on file documented as of this encounter Visit Diagnoses Diagnosis Myalgia and myositis, unspecified- Primary Mylagia and myositis, unspecified Other nonspecific abnormal serum enzyme levels documented in this encounter Care Teams Jive Developer Relationship Specialty Start Date End Date Charles Delgadillo MD [address], [place] [address] PCP - General Family Practice 09/05/10 documented as of this encounter
--- OUTSIDE RECORDS SUMMARY | 2025-09-18 01:36 | XMS_ITS | Encounter Summary ---
Author Organization [facility] Address [address] [place] [address] Care Team Providers Care Delivery Clerk Name Role Phone Charles Delgadillo MD Primary Care Provider [phone] Encounter Details Date Type Department Care Team (Latest Contact Info) Description 11/05/2003 Outpatient Historical [facility] Orthopedics- [address] [place] [address] Gamaliel Gracia MD [address] [place] [address] JOINT PAIN-SHLDER (Primary Dx); LOC OSTEOARTH NOS-SHLDER Social History Tobacco Use Types Packs/Day Years Used Date Smoking Tobacco: Never Assessed Comments Unknown Sex and Gender Information Value Date Recorded Sex Assigned at Not on file Legal Sex Female 5:59 AM ATTENDANT HONOR BAR Gender Identity Not on file Sexual Orientation Not on file documented as of this encounter Plan of Treatment Not on file documented as of this encounter Visit Diagnoses Diagnosis Pain in joint, shoulder region- Primary Localized osteoarthrosis not specified whether primary or secondary, shoulder region documented in this encounter Care Teams Delivery Clerk Relationship Specialty Start Date End Date Charles Delgadillo MD [address] [place] [phone] PCP - General Family Practice 09/05/10 documented as of this encounter
--- OUTSIDE RECORDS SUMMARY | 2025-09-18 01:36 | XMS_ITS | Encounter Summary ---
Author Organization [facility] Address [address] [place] [address] Care Team Providers Care Data Visualization Developer Name Role Phone Charles Delgadillo MD Primary Care Provider [phone] Encounter Details Date Type Department Care Team (Latest Contact Info) Description 08/15/2001 Outpatient [facility] Medicine [place] 104 [facility] 60 [place] [address] Thomas Anne MD [address] [address] ARTHROPATHY NOS-UNSPEC (Primary Dx); HYPERLIPIDEMIA NEC/NOS Social History Tobacco Use Types Packs/Day Years Used Date Smoking Tobacco: Never Assessed Comments Unknown Sex and Gender Information Value Date Recorded Sex Assigned at Not on file Legal Sex Female 5:59 AM SENIOR FIELD SERVICE ENGINEER Gender Identity Not on file Sexual Orientation Not on file documented as of this encounter Plan of Treatment Not on file documented as of this encounter Visit Diagnoses Diagnosis Arthropathy, unspecified, site unspecified- Primary Other and unspecified hyperlipidemia documented in this encounter Care Teams Data Visualization Developer Relationship Specialty Start Date End Date Charles Delgadillo MD [address], [place] [phone] PCP - General Family Practice 09/05/10 documented as of this encounter
--- OUTSIDE RECORDS SUMMARY | 2025-09-18 01:36 | XMS_ITS | Encounter Summary ---
Author Organization [facility] Address [address] [place] [address] Care Team Providers Care Outside Sales Consultant Name Role Phone Charles Delgadillo MD Primary Care Provider [phone] Encounter Details Date Type Department Care Team (Latest Contact Info) Description 04/07/[address] [facility] Imaging Services [address] [place] [phone] Gamaliel Gracia MD [address] [place] [address] POSTOP HETEROTOPIC CALC (Primary Dx) Social History Tobacco Use Types Packs/Day Years Used Date Smoking Tobacco: Never Assessed Comments Unknown Sex and Gender Information Value Date Recorded Sex Assigned at Not on file Legal Sex Female 5:59 AM PUTTY WORKER Gender Identity Not on file Sexual Orientation Not on file documented as of this encounter Plan of Treatment Not on file documented as of this encounter Visit Diagnoses Diagnosis Postoperative heterotopic calcification- Primary documented in this encounter Care Teams Outside Sales Consultant Relationship Specialty Start Date End Date Charles Delgadillo MD [address] [place] [address] PCP - General Family Practice 09/05/10 documented as of this encounter
--- OUTSIDE RECORDS SUMMARY | 2025-09-18 01:36 | XMS_ITS | Encounter Summary ---
Author Organization [facility] Address [address] [place] [address] Care Team Providers Care Pediatric Medical Assistant Name Role Phone Charles Delgadillo MD Primary Care Provider [phone] Encounter Details Date Type Department Care Team (Latest Contact Info) Description 06/19/2004 Outpatient [facility] Podiatry-Psychiatric [place] [address] [place] [address] Miller Bustos DPM NO ADDRESS ON FILE TENOSYNOVITIS FOOT/ANKLE (Primary Dx); ENTHESOPATHY, SITE NOS; Plantar fibromatosis; SPASM OF MUSCLE Social History Tobacco Use Types Packs/Day Years Used Date Smoking Tobacco: Never Assessed Comments Unknown Sex and Gender Information Value Date Recorded Sex Assigned at Not on file Legal Sex Female 5:59 AM CAREER DEVELOPMENT MANAGER Gender Identity Not on file Sexual Orientation Not on file documented as of this encounter Plan of Treatment Not on file documented as of this encounter Visit Diagnoses Diagnosis Tenosynovitis of foot and ankle- Primary Enthesopathy of unspecified site Plantar fibromatosis Plantar fascial fibromatosis Spasm of muscle documented in this encounter Care Teams Pediatric Medical Assistant Relationship Specialty Start Date End Date Charles Delgadillo MD [address] [place] [address] PCP - General Family Practice 09/05/10 documented as of this encounter
--- OUTSIDE RECORDS SUMMARY | 2025-09-18 01:36 | XMS_ITS | Encounter Summary ---
Author Organization [facility] Address [address] [place] [address] Care Team Providers Care Automobile Body Repairer Helper Name Role Phone Charles Delgadillo MD Primary Care Provider [phone] Encounter Details Date Type Department Care Team (Latest Contact Info) Description 01/28/2001 Outpatient [facility] Family Medicine [place] 104 [facility] 60 [place] [address] Thomas Anne MD [address] [address] Other specified arthropathy, site unspecified (Primary Dx); Edema Social History Tobacco Use Types Packs/Day Years Used Date Smoking Tobacco: Never Assessed Comments Unknown Sex and Gender Information Value Date Recorded Sex Assigned at Not on file Legal Sex Female 5:59 AM STORE MANAGEMENT TRAINEE Gender Identity Not on file Sexual Orientation Not on file documented as of this encounter Plan of Treatment Not on file documented as of this encounter Visit Diagnoses Diagnosis Other specified arthropathy, site unspecified- Primary Edema documented in this encounter Care Teams Automobile Body Repairer Helper Relationship Specialty Start Date End Date Charles Delgadillo MD [address] [place] [address] PCP - General Family Practice 09/05/10 documented as of this encounter
--- OUTSIDE RECORDS SUMMARY | 2025-09-18 01:36 | XMS_ITS | Encounter Summary ---
Author Organization [facility] Address [address] [place] [address] Care Team Providers Care Senior Information Security Architect Name Role Phone Charles Delgadillo MD Primary Care Provider [phone] Encounter Details Date Type Department Care Team (Latest Contact Info) Description 07/25/2001 Outpatient [facility] Family Medicine [place] 104 [facility] 60 [place] [address] Thomas Anne MD [address] [phone] VACCINE FOR INFLUENZA (Primary Dx) Social History Tobacco Use Types Packs/Day Years Used Date Smoking Tobacco: Never Assessed Comments Unknown Sex and Gender Information Value Date Recorded Sex Assigned at Not on file Legal Sex Female 5:59 AM PRESSURIZATION MECHANIC Gender Identity Not on file Sexual Orientation Not on file documented as of this encounter Plan of Treatment Not on file documented as of this encounter Visit Diagnoses Diagnosis Need vaccination-viral disease- Primary Need for prophylactic vaccination and inoculation against other viral diseases documented in this encounter Care Teams Senior Information Security Architect Relationship Specialty Start Date End Date Charles Delgadillo MD [address] [place] [address] PCP - General Family Practice 09/05/10 documented as of this encounter
--- OUTSIDE RECORDS SUMMARY | 2025-09-18 01:36 | XMS_ITS | Encounter Summary ---
Author Organization [facility] Address [address] [place] [address] Care Team Providers Care Clinical Biostatistician Name Role Phone Charles Delgadillo MD Primary Care Provider [phone] Reason for Referral * Outpatient Services (Routine) - Closed Specialty Diagnoses / Procedures Referred By Tisha troncoso Referred To Contact Oncology Diagnoses Other screening mammogram Procedures MAMMO DIGITAL SCREEN BILAT MOBILE Shanika Zavala FNP [address] [place] [address] Phone: tel: fax: [facility] [address] [address] Phone: tel: Referral ID Status Reason Start Date Expiration Date Visits Re quested Visits Authorized [id number] Closed 03/20/2012 03/20/2013 1 1 Encounter Details Date Type Department Care Team (Latest Contact Info) Description 03/20/2012 Ancillary Orders [facility] [address] [address] Shanika Zavala FNP [address] [place] [address] Other screening mammogram Social History Tobacco Use Types Packs/Day Years Used Date Smoking Tobacco: Never Smokeless Tobacco: Never Alcohol Use Standard Drinks/Week Comments No 0 (1 standard drink = 0.6 oz pur e alcohol) Comments No Sex and Gender Information Value Date Recorded Sex Assigned at Not on file Legal Sex Female 5:59 AM PLANT ATTENDANT Gender Identity Not on file Sexual Orientation Not on file 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 Findings: Bilateral CC and MLO views were obtained. This examination was reviewed with the aid of a computer-aided detection system(CAD). The breast tissue density is average. No significant new findings since the prior mammogram(s). Procedure Note Tracey Ortega MD - 04/10/2012 Bilateral Mammogram Reason for Exam: Screening Comparison: Comparison is made with the prior exam(s) dated 04/04/2011. Findings: Bilateral CC and MLO views were obtained. This examination was reviewed with the aid of a computer-aided detectionsystem(CAD). The breast tissue density is average. No significant new findings since the prior mammogram(s). us Shanika Zavala DISTRIBUTOR OF DIRECTORIES MAMMO ORDERABLES Final Result documented in this encounter Visit Diagnoses Diagnosis Other screening mammogram Other screening mammogram documented in this encounter Care Teams Clinical Biostatistician Relationship Specialty Start Date End Date Charles Delgadillo MD [address] [place] [address] PCP - General Family Practice 09/05/10 documented as of this encounter
--- OUTSIDE RECORDS SUMMARY | 2025-09-18 01:36 | XMS_ITS | Encounter Summary ---
Author Organization [facility] Address [address] [place] [address] Care Team Providers Care Pai Gow Dealer Name Role Phone Charles Delgadillo MD Primary Care Provider [phone] Encounter Details Date Type Department Care Team (Latest Contact Info) Description 08/17/2002 Outpatient [facility] Medicine [place] 104 [facility] 60 [place] [address] Thomas Anne MD [address] [phone] MYALGIA AND MYOSITIS NOS (Primary Dx); ESOPHAGEAL REFLUX Social History Tobacco Use Types Packs/Day Years Used Date Smoking Tobacco: Never Assessed Comments Unknown Sex and Gender Information Value Date Recorded Sex Assigned at Not on file Legal Sex Female 5:59 AM MEDICAL CODING TECHNICIAN Gender Identity Not on file Sexual Orientation Not on file documented as of this encounter Plan of Treatment Not on file documented as of this encounter Visit Diagnoses Diagnosis Myalgia and myositis, unspecified- Primary Mylagia and myositis, unspecified Esophageal reflux documented in this encounter Care Teams Pai Gow Dealer Relationship Specialty Start Date End Date Charles Delgadillo MD [address] [place] [address] PCP - General Family Practice 09/05/10 documented as of this encounter
--- OUTSIDE RECORDS SUMMARY | 2025-09-18 01:36 | XMS_ITS | Encounter Summary ---
Author Organization [facility] Address [address] [place] [address] Care Team Providers Care Anvil Worker Name Role Phone Charles Delgadillo MD Primary Care Provider [phone] Encounter Details Date Type Department Care Team (Latest Contact Info) Description 03/13/2004 Outpatient Historical [facility] Family Medicine [address] [phone] Lamar Pineda NP NO ADDRESS ON FILE SPRAIN OF ANKLE NOS (Primary Dx); EXOSTOSIS, SITE NOS Social History Tobacco Use Types Packs/Day Years Used Date Smoking Tobacco: Never Assessed Comments Unknown Sex and Gender Information Value Date Recorded Sex Assigned at Not on file Legal Sex Female 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
--- OUTSIDE RECORDS SUMMARY | 2025-09-18 01:36 | XMS_ITS | Encounter Summary ---
Author Organization [facility] Address [address] [place] [address] Care Team Providers Care Order Packer Or Packager Name Role Phone Charles Delgadillo MD Primary Care Provider [phone] Reason for Referral * Outpatient Services (Routine) - Closed Specialty Diagnoses / Procedures Referred By Tisha troncoso Referred To Contact Oncology Diagnoses Other screening mammogram Procedures MAMMO DIGITAL SCREEN BILAT MOBILE Shanika Zavala FNP [address] [place] [phone] Phone: tel: fax: [facility] [address] [address] Phone: tel: Referral ID Status Reason Start Date Expiration Date Visits Re quested Visits Authorized [id number] Closed 05/04/2013 06/04/2014 1 1 Encounter Details Date Type Department Care Team (Latest Contact Info) Description 05/04/2013 Ancillary Orders [facility] [address] [address] Shanika Zavala FNP [address] [place] [address] Other screening mammogram (Primary Dx) Social History Tobacco Use Types Packs/Day Years Used Date Smoking Tobacco: Never Smokeless Tobacco: Never Alcohol Use Standard Drinks/Week Comments No 0 (1 standard drink = 0.6 oz pur e alcohol) Comments No Sex and Gender Information Value Date Recorded Sex Assigned at Not on file Legal Sex Female 5:59 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 Gender Identity Not on file Sexual Orientation Not on file 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 This examination was reviewed with the aid of a computer-aided detection system(CAD). The breast tissue density is average. No significant new findings since the prior mammogram(s). Procedure Note Sharmila Jones MD - 05/21/2013 Bilateral Mammogram Reason for Exam: Screening Comparison: Compared to: 04/09/2012 MAMMO DIGITAL SCREEN BILAT MOBILE, 04/04/2011 MAMMO DIGITIZED STUDY, 04/04/2011 MAMMO SCREENING BILATMOBILE, 02/06/2010 MAMMO SCREENING BILAT, 04/12/2008 MAMMO DIGITIZEDSTUDY Findings: Bilateral CC and MLO views were obtained. This examination was reviewed with the aid of a computer-aided detectionsystem(CAD). The breast tissue density is average. No significant new findings since the prior mammogram(s). us Shanika Zavala SUBSTANCE ABUSE SPECIALIST MAMMO ORDERABLES Final Result documented in this encounter Visit Diagnoses Diagnosis Other screening mammogram- Primary Other screening mammogram documented in this encounter Care Teams Order Packer Or Packager Relationship Specialty Start Date End Date Charles Delgadillo MD [address] [place] [address] PCP - General Family Practice 09/05/10 documented as of this encounter
--- OUTSIDE RECORDS SUMMARY | 2025-09-18 01:36 | XMS_ITS | Encounter Summary ---
Author Organization [facility] Address [address] [place] [address] Care Team Providers Care Field Sales Executive Name Role Phone Charles Delgadillo MD Primary Care Provider [phone] Encounter Details Date Type Department Care Team (Latest Contact Info) Description 01/24/2004 Outpatient [facility] Family Medicine [place] 104 [facility] 60 [place] [address] Thomas Anne MD [address] [address] CRAMP IN LIMB (Primary Dx); BENIGN PARXYSMAL VERTIGO Social History Tobacco Use Types Packs/Day Years Used Date Smoking Tobacco: Never Assessed Comments Unknown Sex and Gender Information Value Date Recorded Sex Assigned at Not on file Legal Sex Female 5:59 AM AUDIOLOGY DOCTOR Gender Identity Not on file Sexual Orientation Not on file documented as of this encounter Plan of Treatment Not on file documented as of this encounter Visit Diagnoses Diagnosis Cramp of limb- Primary Benign paroxysmal positional vertigo documented in this encounter Care Teams Field Sales Executive Relationship Specialty Start Date End Date Charles Delgadillo MD [address] [place] [address] PCP - General Family Practice 12/14/10 documented as of this encounter
--- OUTSIDE RECORDS SUMMARY | 2025-09-18 01:36 | XMS_ITS | Encounter Summary ---
Author Organization [facility] Address [address] [place] [address] Care Team Providers Care C 40A Crew Chief Name Role Phone Charles Delgadillo MD Primary Care Provider [phone] Encounter Details Date Type Department Care Team (Latest Contact Info) Description 10/21/2003 Outpatient Historical [facility] Orthopedics- 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
--- OUTSIDE RECORDS SUMMARY | 2025-09-18 01:36 | XMS_ITS | Encounter Summary ---
Author Organization [facility] Address [address] [place] [address] Care Team Providers Care Hog Trader Name Role Phone Charles Delgadillo MD Primary Care Provider [phone] Encounter Details Date Type Department Care Team (Latest Contact Info) Description 07/20/2004 Outpatient Historical [facility] Orthopedics- 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
--- OUTSIDE RECORDS SUMMARY | 2025-09-18 01:36 | XMS_ITS | Encounter Summary ---
Author Organization [facility] Address [address] [place] [address] Care Team Providers Care Frame Table Operator Helper Name Role Phone Charles Delgadillo MD Primary Care Provider [phone] Encounter Details Date Type Department Care Team (Latest Contact Info) Description 05/14/2003 Outpatient [facility] Medicine [place] 104 [facility] 60 [place] [address] Thomas Anne MD [address] [address] ACUTE SINUSITIS NOS (Primary Dx); MYALGIA AND MYOSITIS NOS Social History Tobacco Use Types Packs/Day Years Used Date Smoking Tobacco: Never Assessed Comments Unknown Sex and Gender Information Value Date Recorded Sex Assigned at Not on file Legal Sex Female 5:59 AM COLOR MIXER Gender Identity Not on file Sexual Orientation Not on file documented as of this encounter Plan of Treatment Not on file documented as of this encounter Visit Diagnoses Diagnosis Acute sinusitis, unspecified- Primary Myalgia and myositis, unspecified Mylagia and myositis, unspecified documented in this encounter Care Teams Frame Table Operator Helper Relationship Specialty Start Date End Date Charles Delgadillo MD [address], [place] [address] PCP - General Family Practice 09/05/10 documented as of this encounter
--- OUTSIDE RECORDS SUMMARY | 2025-09-18 01:36 | XMS_ITS | Encounter Summary ---
Author Organization [facility] Address [address] [place] [address] Care Team Providers Care Ct Manager Name Role Phone Charles Delgadillo MD Primary Care Provider [phone] Encounter Details Date Type Department Care Team (Latest Contact Info) Description 03/11/2001 Outpatient [facility] Family Medicine [place] [address] [facility] [address] [place] [phone] Thomas Anne MD [address] [phone] Sprain of ankle, unspecified site (Primary Dx) Social History Tobacco Use Types Packs/Day Years Used Date Smoking Tobacco: Never Assessed Comments Unknown Sex and Gender Information Value Date Recorded Sex Assigned at Not on file Legal Sex Female 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
--- OUTSIDE RECORDS SUMMARY | 2025-09-18 01:36 | XMS_ITS | Encounter Summary ---
Author Organization [facility] Address [address] Attn: Epic Prelude ADT ANGELICA DAVIS [address] Care Team Providers Care Arch Support Maker Name Role Phone Charles Delgadillo MD Primary Care Provider [phone] Encounter Details Date Type Department Care Team (Late st Contact Info) Description 10/06/2001 Outpatient Historical Thomas Anne MD [address] [phone] Social History Tobacco Use Types Packs/Day Years Used Date Smoking Tobacco: Never Assessed Comments Unknown Sex and Gender Information Value Date Recorded Sex Assigned at Not on file Legal Sex Female 5:59 AM FIELD TAX 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
--- OUTSIDE RECORDS SUMMARY | 2025-09-18 01:36 | XMS_ITS | Encounter Summary ---
Author Organization [facility] Address [address] [place] [address] Care Team Providers Care Education Research Analyst Name Role Phone Charles Delgadillo MD Primary Care Provider [phone] Encounter Details Date Type Department Care Team (Latest Contact Info) Description 05/04/2005 Outpatient Historical [facility] Family Medicine- 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
--- OUTSIDE RECORDS SUMMARY | 2025-09-18 01:36 | XMS_ITS | Encounter Summary ---
Author Organization [facility] Address [address] [place] [address] Care Team Providers Care Director Product Management Name Role Phone Charles Delgadillo MD Primary Care Provider [phone] Encounter Details Date Type Department Care Team (Latest Contact Info) Description 09/11/2005 Outpatient [facility] Podiatry-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
--- NOTE | 2025-09-18 01:37 | W.ED.FALL ---
HPI - Fall General: Chief Complaint: Fall Stated Complaint: Fall History of Present Illness: 75-year-old female had a ground-level mechanical fall in her home presents emergency room complaining of left shoulder pain. She previous had a left shoulder arthroplasty. She did not strike her head there is no loss consciousness she has no focal neurologic deficits. She complaining of severe shoulder pain. Associated symptoms-after fall: Denies abdominal pain, chest pain or neck pain Related Data Home Medications ?Medication ?Instructions ?Recorded ?Confirmed diclofenac sodium 1 % topical gel 2 gm topical QID 05/26/20 08/31/25 epinephrine 0.3 mg/0.3 mL 0.3 mg IM Q10M PRN Allergic 05/26/20 08/31/25 injection, auto-injector Reaction fluticasone propionate 50 2 spray intranasal DAILY 05/26/20 08/31/25 mcg/actuation nasal spray,suspension lactobacillus combination no.8 3 3,000 mmu cells PO DAILY 05/26/20 08/31/25 billion cell capsule (Adult Probiotic) polyethylene glycol 3350 17 17 gm PO DAILY 05/26/20 08/31/25 gram/dose oral powder (Miralax) pregabalin 50 mg capsule (Lyrica) 50 mg PO TID 05/26/20 08/31/25 zolpidem 10 mg tablet 10 mg PO ONCE 05/26/20 08/31/25 albuterol sulfate 90 mcg/actuation 2 puff inhalation QID PRN Allergic 01/01/23 08/31/25 aerosol inhaler Symptoms cyclobenzaprine 10 mg tablet 10 mg PO TID PRN Spasms 01/01/23 08/31/25 insulin glargine 100 unit/mL (3 52 unit SUBCUT QAM 08/26/23 08/31/25 mL) subcutaneous pen (Lantus Solostar U-100 Insulin) atorvastatin 20 mg tablet mg PO 11/25/23 08/31/25 blood-glucose sensor (AutoShag G7 #1 ea 11/25/23 08/31/25 Sensor device) metoprolol tartrate 25 mg tablet 25 mg PO BID 12/24/23 08/31/25 pantoprazole 40 mg tablet,delayed 40 mg PO DAILY 12/24/23 08/31/25 release cetirizine 10 mg tablet mg PO 01/26/25 08/31/25 insulin lispro 100 unit/mL SUBCUT 01/26/25 08/31/25 subcutaneous pen Previous Rx's ?Medication ?Instructions ?Recorded pen needle, diabetic 31 gauge x #100 ea 09/26/2112/06 (Sure-Fine Pen [place]) aspirin 81 mg tablet,delayed 81 mg PO DAILY #30 tabs 12/24/23 release (Adult Low Dose Aspirin) ferrous gluconate 324 mg (38 mg 324 mg PO ONCE #30 tabs 03/23/25 iron) tablet hydrocodone 5 mg-acetaminophen 325 1 tab PO Q6H PRN pain #15 tabs 09/18/25 mg tablet Allergies Allergy/AdvReac Type Severity Reaction Status Date / Time fluoxetine Allergy ALGY-Hives Verified 09/18/25 01:35 meperidine (From Demerol) Allergy ALGY-Rash Verified 09/18/25 01:35 morphine Allergy Unknown Verified 09/18/25 01:35 naloxone (From Talwin NX) Allergy ALGY-Anaphy Verified 09/18/25 01:35 laxis olopatadine (From Patanase) Allergy ADR-Nose Verified 09/18/25 01:35 Bleed oxycodone Allergy ALGY-Rash Verified 09/18/25 01:35 pentazocine Allergy ALGY-Swell Verified 09/18/25 01:35 Lip/Tongue/Throat Sulfa (Sulfonamide Allergy ALGY-Rash Verified 09/18/25 01:35 Antibiotics) Review of Systems Const: Denies: fever(s) or chills Card: Denies: chest pain Resp: Denies: dyspnea GI: Denies: abdominal pain : Denies: dysuria, urinary frequency or urinary urgency Musc: Reports: extremity pain and joint pain; Denies: neck pain or back pain Skin/Breast: Denies: rash PFSH ED PFSH: Medical History Angiodysplasia of stomach Anemia due to other cause, not classified History of deep vein thrombosis of lower extremity Mixed hyperlipidemia Primary hypertension GERD (gastroesophageal reflux disease) Type 2 diabetes mellitus without complication, without long-term current use of insulin Chronic kidney disease Allergic rhinitis Anxiety and depression Lymphocytosis-symptomatc Gamma T lymphocytosis Cirrhosis of liver Fibromyalgia Osteoarthritis COPD (chronic obstructive pulmonary disease) Intestinal obstruction 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 Mother Diabetes Lung disease Sister Cancer breast Social History Smoking and tobacco/nicotine status: never used tobacco/nicotine Alcohol intake: never Substance/Drug Use: never Physical Exam Const: COMMON NORMALS: no acute distress GENERAL APPEARANCE: cooperative and comfortable ORIENTATION/CONSCIOUSNESS: Yes awake, Yes oriented to person, Yes oriented to place and Yes oriented to time HENMT: COMMON NORMALS: normocephalic, atraumatic and hearing grossly normal bilaterally HEAD & SCALP: normocephalic and atraumatic Resp: COMMON NORMALS: normal respiratory effort, No retractions, No use of accessory muscles and clear to auscultation bilaterally AUSCULTATION: clear to auscultation bilaterally Cardio: COMMON NORMALS: regular rate, regular rhythm and No murmurs present (Cardio) RATE: regular rate RHYTHM: regular rhythm GI: AUSCULTATION: Yes normoactive bowel sounds PALPATION: No Tenderness to palpation present (GI) and No Guarding due to palpation present (GI) Extremity: COMMON NORMALS: capillary refill normal, no clubbing, cyanosis or edema, no calf tenderness and no pedal edema OTHER: Deformity of the left proximal humerus Neuro: SENSORIUM/ORIENTATION: Yes oriented to person, Yes oriented to place and Yes oriented to time Skin: COMMON NORMALS: no rashes or lesions noted GENERAL SKIN EXAM: no rashes or lesions noted Course Vital Signs: Vital signs: Vital Signs Temperature 98.2 F 09/18/25 01:29 Pulse Rate 90 09/18/25 02:53 Respiratory Rate 20 H 09/18/25 02:20 Blood Pressure 143/57 09/18/25 02:53 Pulse Oximetry 96 09/18/25 02:53 Oxygen Delivery Me thod Room Air 09/18/25 01:29 MDM - Fall Medical Decision Making Medical decision making Social determinants: None has good family support I reviewed the patient's medical record. I reviewed the patient's current home meds. Alternate historians: None Differential diagnosis: Left shoulder dislocation proximal humerus fracture Lab Review: White count is 16,000 with a hemoglobin of 8 1. Platelet count 252. Chemistry panel carbon dioxide of 20 glucose 157. AST 70 ALT 37 alk phos 215. Imaging: Moderately displaced proximal humerus fracture type B proximal humerus prosthesis fracture fracture is spiral with some shortening does not affect the hardware Assessment of risk Level of risk: Low moderate Hospitalization considerations: No indication for hospitalization Reexamination: Neurovascularly intact pain controlled Assessment and plan: Discussed with Dr. Edwards who is on-call for orthopedics who recommends outpatient follow-up may need referral. Will refer to his office take and refer if needed. Patient discharged home with pain medications Lab Data 09/18/25 01:37 09/18/25 01:37 Radiology Impressions Shoulder X-Ray 09/18/25 01:31 IMPRESSION: Displaced proximal humerus fracture. Laboratory Results WBC 16.34 10^3/uL (3.29-11.43) H 09/18/25 01:37 RBC 2.32 10^6/uL (3.85-5.65) L 09/18/25 01:37 Hgb 8.10 g/dL (11.27-16.99) L 09/18/25 01:37 Hct 27.8 % (36-47) L 09/18/25 01:37 MCV 119.8 fl (85-98) H 09/18/25 01:37 MCH 34.9 pg (27-33) H 09/18/25 01:37 MCHC 29.1 g/dL (30-55) L 09/18/25 01:37 RDW 23.2 % (12.1-15.1) H 09/18/25 01:37 Plt Count 352 10^3/cmm (157-399) 09/18/25 01:37 MPV 11.2 fL (7.4-10.4) H 09/18/25 01:37 Neut % (Auto) 50.4 % 09/18/25 01:37 Lymph % (Auto) 31.5 % 09/18/25 01:37 [place] % (Auto) 12.2 % 09/18/25 01:37 Eos % (Auto) 3.5 % 09/18/25 01:37 Baso % (Auto) 0.7 % 09/18/25 01:37 Neut # (Auto) 8.21 10^3/uL (1.8-7.7) H 09/18/25 01:37 Lymph # (Auto) 5.2 10^3/uL (0.8-4.8) H 09/18/25 01:37 [place] # (Auto) 2.0 10^3/uL (0.2-0.9) H 09/18/25 01:37 Eos # (Auto) 0.6 10^3/uL (0.0-0.8) 09/18/25 01:37 Baso # (Auto) 0.1 10^3/uL (0.0-0.1) 09/18/25 01:37 Nucleated RBC % (auto) 1.9 % 09/18/25 01:37 Nucleated RBCs # 0.3 /100WBC 09/18/25 01:37 Sodium 138 mmol/L (136-145) 09/18/25 01:37 Potassium 3.8 mmol/L (3.5-5.1) 09/18/25 01:37 Chloride 107 mmol/L (98-107) 09/18/25 01:37 Carbon Dioxide 20 mmol/L (22-29) L 09/18/25 01:37 Anion Gap 14.8 (5-19) 09/18/25 01:37 BUN 14 mg/dL (8-23) 09/18/25 01:37 Creatinine 0.9 mg/dL (0.5-0.9) 09/18/25 01:37 GFR Calculation Not Reportable 09/18/25 01:37 Glucose 157 mg/dL (65-115) H 09/18/25 01:37 Calculated Osmolality 290 mOsm/kg (285-295) 09/18/25 01:37 Calcium 8.6 mg/dL (8.5-10.5) 09/18/25 01:37 Total Bilirubin 0.5 mg/dL (0.15-1.2) 09/18/25 01:37 AST 70 U/L (0-32) H 09/18/25 01:37 ALT 37 U/L (0-33) H 09/18/25 01:37 Alkaline Phosphatase 215 U/L (35-105) H 09/18/25 01:37 Total Protein 6.0 g/dL (6.6-8.7) L 09/18/25 01:37 Albumin 3.1 g/dL (3.5-5.2) L 09/18/25 01:37 Globulin 2.9 g/dL (1.3-4.6) 09/18/25 01:37 Urine Color Yellow (Yellow) 09/18/25 01:56 Urine Appearance Clear (CLEAR) 09/18/25 01:56 Urine pH 5.5 (5-7) 09/18/25 01:56 Ur Specific Gordon 1.024 (1.005-1.030) 09/18/25 01:56 Urine Protein Trace (Negative) A 09/18/25 01:56 Urine Glucose (UA) Negative (Normal) 09/18/25 01:56 Urine Ketones Negative (Negative) 09/18/25 01:56 Urine Blood Negative (Negative) 09/18/25 01:56 Urine Nitrate Negative (Negative) 09/18/25 01:56 Urine Bilirubin Negative (Negative) 09/18/25 01:56 Urine Urobilinogen 1.0 mg/dL (Negative) 09/18/25 01:56 Ur Leukocyte Esterase Negative (Negative) 09/18/25 01:56 Urine RBC 0-2 /hpf (0-2) 09/18/25 01:56 Urine WBC 0-5 /hpf (0-5) 09/18/25 01:56 Ur Squamous Epith Cells 0-5 /hpf (0-5) 09/18/25 01:56 Amorphous Sediment Not Reportable 09/18/25 01:56 Urine Bacteria None seen /hpf (NONE) 09/18/25 01:56 Hyaline Casts 2.05 /lpf 09/18/25 01:56 Urine Mucus 2+ /hpf 09/18/25 01:56 All radiology interpretation(s) finalized by discharge Discharge Plan Discharge Patient Disposition: Home Clinical Impression: Fracture of proximal humerus Condition: Stable Prescriptions: New hydrocodone-acetaminophen 5-325 mg tablet 1 tab PO Q6H PRN (Reason: pain) Qty: 15 0RF No Action diclofenac sodium 1 % gel 2 gm TOPICAL QID Rx Instructions: apply to single elbow, wrist or hand; for hand includes palm/fingers/back of hand epinephrine 0.3 mg/0.3 mL auto-injector 0.3 mg IM Q10M PRN (Reason: Allergic Reaction) Rx Instructions: for 2 doses fluticasone propionate 50 mcg/actuation spray,suspension 2 spray INTRANASAL DAILY Rx Instructions: administer into each nostril pregabalin [Lyrica] 50 mg capsule 50 mg PO TID polyethylene glycol 3350 [Miralax] 17 gram/dose powder 17 gm PO DAILY Adult Probiotic 3 billion cell capsule 3,000 mmu cells PO DAILY Rx Instructions: administer with a meal zolpidem 10 mg tablet 10 mg PO ONCE albuterol sulfate 90 mcg/actuation HFA aerosol inhaler 2 puff INHALATION QID PRN (Reason: Allergic Symptoms) cyclobenzaprine 10 mg tablet 10 mg PO TID PRN (Reason: Spasms) (DME) pen needle, diabetic [Sure-Fine Pen [place]] 31 gauge x 3/16 needle See Rx Instructions .ROUTE .MEDSUPPLY Qty: 100 2RF Rx Instructions: Use once daily atorvastatin 20 mg tablet PO (DME) Dexcom G7 Sensor Device See Rx Instructions .ROUTE .MEDSUPPLY Qty: 1 Rx Instructions: As directed cetirizine 10 mg tablet PO insulin lispro 100 unit/mL insulin pen SUBCUT metoprolol tartrate 25 mg tablet 25 mg PO BID aspirin [Adult Low Dose Aspirin] 81 mg tablet,delayed release (DR/EC) 81 mg PO DAILY Qty: 30 0RF pantoprazole 40 mg tablet,delayed release (DR/EC) 40 mg PO DAILY ferrous gluconate 324 mg (38 mg iron) tablet 324 mg PO ONCE Qty: 30 0RF insulin glargine [Lantus Solostar U-100 Insulin] 100 unit/mL (3 mL) insulin pen 52 unit SUBCUT QAM Rx Instructions: Inject 32 units subcut daily. Discharge Orders: Discharge ED (Routine); Ordered 09/18/25 Ordered By: Baldomero Gibson Referrals: Norman Caldera MD [Primary Care Provider, Family Practice] Discharge Diet: Usual diet Discharge Activity: Limit activity as instructed Patient Instructions: Opioid Safety, Pain Management, Patient Portal & Gerardo Instructions Activity Restrictions/Additional Instructions: Thank you for choosing [facility] for your healthcare needs today. It is very important that you follow up as instructed or that you return to the Emergency Department should you have concerns or if your condition changes or worsens in any way. Emergency department visits are focused on emergent conditions, in some cases you may require further evaluation on an outpatient basis. You were seen in the emergency room after a fall fall. The x-ray shows a proximal humerus fracture. We discussed with the on-call orthopedist they recommend sling this can be managed as an outpatient case management make arrangements for you to follow-up with orthopedics. No use of the left arm until released by orthopedics. (Please note that included in your discharge packet is information concerning opioid safety and pain management. This information is given to all patients were discharged from the ER regardless of their discharge diagnosis or the medicines they usually take or are prescribed.) Print Language: Slovenian Coding Level of Care Code ED Veneer Production Machine Operator for Hunter Everett
--- OUTSIDE RECORDS SUMMARY | 2025-09-18 01:37 | XMS_ITS | Encounter Summary ---
Author Organization [facility] Address [address] [place] [address] Care Team Providers Care Telephone Sales Agent Name Role Phone Charles Delgadillo MD Primary Care Provider [phone] Encounter Details Date Type Department Care Team (Latest Contact Info) Description 11/28/2006 Outpatient [facility] [place] [address] [place] [address] [phone] Melvin Caro Thoracic or Lumbosacral Neuritis or Radiculitis, Unspecified (Primary Dx) Social History Tobacco Use Types Packs/Day Years Used Date Smoking Tobacco: Never Assessed Comments Unknown Sex and Gender Information Value Date Recorded Sex Assigned at Not on file Legal Sex Female 5:59 AM HAND BRIM IRONER Gender Identity Not on file Sexual Orientation Not on file documented as of this encounter Plan of Treatment Not on file documented as of this encounter Visit Diagnoses Diagnosis Thoracic or lumbosacral neuritis or radiculitis, unspecified- Primary documented in this encounter Care Teams Telephone Sales Agent Relationship Specialty Start Date End Date Charles Delgadillo MD [address] [place] [address] PCP - General Family Practice 09/05/10 documented as of this encounter
--- OUTSIDE RECORDS SUMMARY | 2025-09-18 01:37 | XMS_ITS | Encounter Summary ---
Author Organization [facility] Address [address] [place] [address] Care Team Providers Care Mud Mixer Operator Name Role Phone Charles Delgadillo MD Primary Care Provider [phone] Encounter Details Date Type Department Care Team (Late st Contact Info) Description 12/12/2005 Outpatient Historical [facility] [place] [address] 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
--- OUTSIDE RECORDS SUMMARY | 2025-09-18 01:37 | XMS_ITS | Encounter Summary ---
Author Organization [employer] [facility] Address [address] [place] [address] Care Team Providers Care Tie Tamper Name Role Phone Charles Delgadillo MD Primary Care Provider [phone] Reason for Referral * Radiology Services (Routine) - Closed Specialty Diagnoses / Procedures Referred By Tisha troncoso Referred To Contact Diagnoses Visit for screening mammogram Procedures MAMMO 3D SCREEN BILATERAL MOBILE Shanika Zavala FNP [address] [place] [phone] Phone: tel: fax: Referral ID Status Reason Start Date Expiration Date Visits Re quested Visits Authorized [id number] Closed 11/02/2020 12/03/2021 1 1 ER MACHINE OPERATOR Encounter Details Date Type Department Care Team (Latest Contact Info) Description 11/02/2020 Ancillary Orders [facility] [place] [address] [address] Shanika Zavala FNP [address] [place] [phone] Visit for screening mammogram Social History Tobacco Use Types Packs/Day Years Used Date Smoking Tobacco: Never Smokeless Tobacco: Never Alcohol Use Standard Drinks/Week Comments No 0 (1 standard drink = 0.6 oz pur e alcohol) Social Connections Answer Date Recorded In a typical week, how many times do you talk on the phone with family, friends, or neighbors? More than three times a week 09/19/2020 How often do you get togethe r with friends or relatives? Once a week 09/19/2020 How often do you attend chur or orthodox services? More than 4 times per year 09/19/2020 Do you belong to any clubs o r organizations such as uatsdin groups, unions, fraternal or athletic groups, or school groups? No 09/19/2020 How often do you attend meet ings of the clubs or organizations you belong to? More than 4 times per year 09/19/2020 Marital Status Not on file 09/19/2020 Financial Resource Strain Answer Date R ecorded How hard is it for you to pa y for the very basics like food, housing, medical care, and heating? Somewhat hard 09/19/2020 Food Insecurity Answer Date Recorded Within the past 12 months, y ou worried that your food would run out before you got the money to buy more. Never true 09/19/20 20 Within the past 12 months, t he food you bought just didn't last and you didn't have money to get more. Never true 09/19/2020 Transportation Needs Answer Date Record ed In the past 12 months, has l ack of transportation kept you from medical appointments or from getting medications? No 08/24 In the past 12 months, has l ack of transportation kept you from meetings, work, or from getting things needed for daily living? No 09/19/2020 Education Answer Date Recorded What is the highest level of school you have completed or the highest degree you have received? 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 No / Unsure 10/18/2020 2:33 PM DIPPER MACHINE OPERATOR documented as of this encounter Plan of Treatment Not on file documented as of this encounter Results * MAMMO 3D SCREEN BILATERAL MOBILE (11/30/2020 10:48 AM DIPPER MACHINE OPERATOR) Anatomical Region Laterality Modality Breast Bilateral Mammography Narrative 12/01/2020 12:35 PM DIPPER MACHINE OPERATOR Bilateral Digital Mammogram with CAD and 3D Tomography Reason for Exam: Screening Comparison: Compared to: 11/30/2019 MAMMO 3D SCREEN BILATERAL MOBILE, 11/12/2018 MAMMO 3D SCREEN BILATERAL MOBILE, 09/12/2017 MAMMO SCRN BILAT MOBILE W OR WO CAD, 08/21/2016 MAMMO DIGITAL SCREEN BILAT MOBILE, and 08/16/2015 MAMMO DIGITAL SCREEN BILAT MOBILE Technique: 3D MLO and CC digital tomosynthesis images were acquired and synthesized 2D images (C view) were generated. This digital mammogram was also analyzed by the Computer Aided Detection System CAD). Breast Composition: The breasts are almost entirely fatty. There are no suspicious masses, areas of architectural distortions, or microcalcifications to suggest malignancy. No significant new findings since the prior mammogram(s). us Shanika Zavala SURGICAL PROCESSOR MAMMO ORDERABLES Final Result documented in this encounter Visit Diagnoses Diagnosis Visit for screening mammogram Other screening mammogram Visit for screening mammogram Other screening mammogram documented in this encounter Care Teams Tie Tamper Relationship Specialty Start Date End Date Charles Delgadillo MD [address] [place] [address] PCP - General Family Practice 09/05/10 documented as of this encounter
--- OUTSIDE RECORDS SUMMARY | 2025-09-18 01:37 | XMS_ITS | Encounter Summary ---
Author Organization [facility] Address [address] [place] [address] Care Team Providers Care Packager Hand Name Role Phone Charles Delgadillo MD Primary Care Provider [phone] Encounter Details Date Type Department Care Team (Late st Contact Info) Description 07/17/2006 [facility]patient [facility] [address] [place] [phone] Social History Tobacco Use Types Packs/Day Years Used Date Smoking Tobacco: Never Assessed Comments Unknown Sex and Gender Information Value Date Recorded Sex Assigned at Not on file Legal Sex Female 5:59 AM IRRIGATION TAX ASSESSOR COLLECTOR Gender Identity Not on file Sexual Orientation Not on file documented as of this encounter Plan of Treatment Not on file documented as of this encounter Visit Diagnoses Not on filedocumented in this encounter Care Teams Packager Hand Relationship Specialty Start Date End Date Charles Delgadillo MD [address] [place] [address] PCP - General Family Practice 09/05/10 documented as of this encounter
--- OUTSIDE RECORDS SUMMARY | 2025-09-18 01:37 | XMS_ITS | Encounter Summary ---
Author Organization [facility] Address [address] [place] [address] Care Team Providers Care Chisel Worker Name Role Phone Charles Delgadillo MD Primary Care Provider [phone] Encounter Details Date Type Department Care Team (Latest Contact Info) Description 06/05/2006 Outpatient Historical [facility] Pain Management Procedures [address] [place] [address] Melvin Caro Thoracic or Lumbosacral Neuritis or Radiculitis, Unspecified (Primary Dx) Social History Tobacco Use Types Packs/Day Years Used Date Smoking Tobacco: Never Assessed Comments Unknown Sex and Gender Information Value Date Recorded Sex Assigned at Not on file Legal Sex Female 5:59 AM TILE LAYER HELPER Gender Identity Not on file Sexual Orientation Not on file documented as of this encounter Plan of Treatment Not on file documented as of this encounter Visit Diagnoses Diagnosis Thoracic or lumbosacral neuritis or radiculitis, unspecified- Primary documented in this encounter Care Teams Chisel Worker Relationship Specialty Start Date End Date Charles Delgadillo MD [address] [place] [address] PCP - General Family Practice 09/05/10 documented as of this encounter
--- OUTSIDE RECORDS SUMMARY | 2025-09-18 01:37 | XMS_ITS | Encounter Summary ---
Author Organization [employer] [facility] Address [address] [place] [address] Care Team Providers Care Bunk House Worker Name Role Phone Charles Delgadillo MD Primary Care Provider [phone] Encounter Details Date Type Department Care Team (Latest Contact Info) Description 06/12/2006 Outpatient Historical [facility] Pain Management Procedures [address] 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
--- OUTSIDE RECORDS SUMMARY | 2025-09-18 01:37 | XMS_ITS | Encounter Summary ---
Author Organization [facility] Address [address] [place] [address] Care Team Providers Care Copy Lathe Tender Name Role Phone Charles Delgadillo MD Primary Care Provider [phone] Encounter Details Date Type Department Care Team (Latest Contact Info) Description 05/28/[address] 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
--- OUTSIDE RECORDS SUMMARY | 2025-09-18 01:37 | XMS_ITS | Encounter Summary ---
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) Social History Tobacco Use Types Packs/Day Years Used Date Smoking Tobacco: Never Assessed Comments Unknown Sex and Gender Information Value Date Recorded Sex Assigned at Not on file 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 Gender Identity Not on file Sexual Orientation Not on file documented as of this encounter Plan of Treatment Not on file documented as of this encounter Procedures Procedure Name Priority Date/Time Associated Diagnosis Comments XR MYELOGRAM THORACIC Routine 01/09/2006 12:[address] THORACIC SPINE W CONTRAST Routine 01/09/2006 12:[address] CONSULTATION Routine 01/09/2006 12:01 AM CDT documented in this encounter Results * CT CONSULTATION (01/09/2006 12:01 AM CDT) 01/09/2006 12:0 1 AM CDT Narrative INTERFACE SYSTEM - 06/16/2009 7:49 AM CDT FLUOROSCOPIC GUIDANCE FOR NEEDLE PLACEMENT FOR THORACIC MYELOGRAM DATE OF PROCEDURE: 01-09-06 BRIEF HISTORY: This is a patient referred from Dr. Tristen Aragon with history of head and neck pain with recent MRI suggestive of mass at T4-5 level. PROCEDURE: Following a detailed discussion in regards to this procedure as well as the potential complications and risks, a written consent was obtained. The patient was placed in a prone position slightly oblique and to the right and fluoroscopy was utilized to select the preferred level of the lumbar puncture. The L2-3 interspace was selected. The area was marked, prepped and draped in the usual sterile fashion, and local anesthesia was achieved with 1% lidocaine overlying the proposed needle course. Under fluoroscopic guidance, a 22 gauge 3.5 spinal needle was guided into the subarachnoid space and good flow of CSF was noted. A small test injection of contrast was given to verify intrathecal placement followed with a complete bolus of 10 mL of Omnipaque 300 mg percent. The stylette was replaced to the needle and the needle removed, Betadine cleansed from the skin, and a sterile dressing placed. The patient was then turned supine and positioned to allow contrast to flow into the thoracic region of the spinal column. Routine Myelogram films were obtained at that time prior to transferring the patient to the CT department for further imaging studies in stable and comfortable condition having tolerated the procedure well. [facility] 1138 Dictated By: Jaime Fernandez Electronically Signed By: Jaime Fernandez Electronically Signed By: Olu Chiu M.D. Date Signed: 01/09/06 [facility] Procedure Note Provider, Historical - 08/10/2009 FLUOROSCOPIC GUIDANCE FOR NEEDLE PLACEMENT FOR THORACIC MYELOGRAM DATE OF PROCEDURE: 01-09-06 BRIEF HISTORY: This is a patient referred from Dr. Tristen Aragon with history of headand neck pain with recent MRI suggestive of mass at T4-5 level. PROCEDURE: Following a detailed discussion in regards to this procedure as well asthe potential complications and risks, a written consent was obtained. The patient was placed in a prone position slightly oblique and to theright and fluoroscopy was utilized to select the preferred level of the lumbar puncture. The L2-3 interspacewas selected. The area was marked, prepped and draped in the usual sterile fashion, and localanesthesia was achieved with 1% lidocaine overlying the proposed needle course. Under fluoroscopicguidance, a 22 gauge 3.5 spinal needle was guided into the subarachnoid space and good flow of CSF wasnoted. A small test injection of contrast was given to verify intrathecal placement followed with acomplete bolus of 10 mL of Omnipaque 300 mg percent. The stylette was replaced to the needle and the needleremoved, Betadine cleansed from the skin, and a sterile dressing placed. The patient was then turnedsupine and positioned to allow contrast to flow into the thoracic region of the spinal column. RoutineMyelogram films were obtained at that time prior to transferring the patient to the CT department forfurther imaging studies in stable and comfortable condition having tolerated the procedure well. [facility] 1138 Dictated By: Jaime Fernandez Electronically Signed By: Jaime Fernandez Electronically Signed By: Olu Chiu M.D. Date Signed: 01/09/06 [facility] us Tristen Aragon MD CT ORDERABLES Final Resul t Performing Organization Address City/State/[facility] Co de Phone Number INTERFACE SYSTEM Refer to clinic/hospital department * CT THORACIC SPINE W CONTRAST (01/09/2006 12:01 AM CDT) Anatomical Region Laterality Modality Spine Other 01/09/2006 12:0 1 AM CDT Narrative 06/16/2009 7:[address] THORACIC SPINE - 01/09/2006 REASON FOR STUDY: Abnormal MRI. The CT scan was performed two hours following the myelographic examination. The spine is normal in sagittal alignment. The spinal cord is flattened and displaced anteriorly throughout the T6 and T5 levels. The homogeneity of the CSF is noted throughout the intrathecal sac on this CT study. No wall of arachnoid cyst is identified. No other masses or evidence of arachnoiditis are seen. The posterior elements appear intact. The paraspinal tissues are unremarkable. The syrinx cavity seen on the MRI is not appreciated on this exam. 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 Admittedly, the cote of this presumed arachnoid cyst are indiscernible. ekp / Dictated By: Olu Chiu M.D. Electronically Signed By: Olu Chiu M.D. Date Signed: 01/09/06 Procedure Note Provider, Historical - 08/10/2009 CT THORACIC SPINE - 01/09/2006 REASON FOR STUDY: Abnormal MRI. The CT scan was performed two hours following the myelographicexamination. The spine is normal in sagittal alignment. The spinal cord is flattenedand displaced anteriorly throughout the T6 and T5 levels. The homogeneity of the CSF is notedthroughout the intrathecal sac on this CT study. No wall of arachnoid cyst is identified. No other massesor evidence of arachnoiditis are seen. The posterior elements appear intact. The paraspinal tissues are unremarkable. The syrinx cavity seen on the MRI is not appreciated on this exam. IMPRESSION: Flattened and displaced spinal cord is present at the T5 and T6 levels,probably from a fairly freely communicating arachnoid cyst posteriorly. Admittedly, the cote of thispresumed arachnoid cyst are indiscernible. ekp / Dictated By: Olu Chiu M.D. Electronically Signed By: Olu Chiu M.D. Date Signed: 01/09/06 us Tristen Aragon MD CT ORDERABLES Final Resul t * XR MYELOGRAM THORACIC (01/09/2006 12:01 AM CDT) Anatomical Region Laterality Modality Spine Other 01/09/2006 12:0 1 AM CDT Narrative 06/16/2009 7:49 AM CDT THORACIC MYELOGRAM - 01/09/2006 REASON FOR STUDY: Syrinx and cord compression seen on prior MRI. The study was performed by Jelena Hargrove , and the procedure will be dictated under a separate report. A myelographic block of contrast is present at the T5 level. Different positioning of the patient and subsequent films show contrast extend above this level. The definition of the block is poorly visualized. Inferior to the block, the thoracic cord is grossly normal in appearance. IMPRESSION: Partial myelographic block of contrast at the T4-5 levels. ekp / Dictated By: Olu Chiu M.D. Electronically Signed By: Olu Chiu M.D. Date Signed: 01/09/06 Procedure Note Provider, Historical - 08/10/2009 THORACIC MYELOGRAM - 01/09/2006 REASON FOR STUDY: Syrinx and cord compression seen on prior MRI. The study was performed by Jelena Hargrove , and the procedure will be dictated under a separate report. A myelographic block of contrast is present at the T5 level. Differentpositioning of the patient and subsequent films show contrast extend above this level. The definition ofthe block is poorly visualized. Inferior to the block, the thoracic cord is grossly normal inappearance. IMPRESSION: Partial myelographic block of contrast at the T4-5 levels. ekp / Dictated By: Olu Chiu M.D. Electronically Signed By: Olu Chiu M.D. Date Signed: 01/09/06 Tristen Aragon MD DIAGNOSTIC IMAGING ORDERABL ES Final Result documented in this encounter Visit Diagnoses Diagnosis Other and unspecified disc disorder of thoracic region- Primary documented in this encounter Care Teams Transportation Maintenance Specialist Relationship Specialty Start Date End Date Charles Delgadillo MD [address] [place] [address] PCP - General Family Practice 09/05/10 documented as of this encounter
--- OUTSIDE RECORDS SUMMARY | 2025-09-18 01:37 | XMS_ITS | Encounter Summary ---
Author Organization [employer] [facility] Address [address] [place] [address] Care Team Providers Care Journeyman Glazier Name Role Phone Charles Delgadillo MD Primary Care Provider [phone] Encounter Details Date Type Department Care Team (Latest Contact Info) Description 08/27/2006 Outpatient Historical [facility] Procedures [address] 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
--- OUTSIDE RECORDS SUMMARY | 2025-09-18 01:37 | XMS_ITS | Encounter Summary ---
Author Organization [employer] [facility] Address [address] [place] [address] Care Team Providers Care Straightening Machine Operator Name Role Phone Charles Delgadillo MD Primary Care Provider [phone] Reason for Referral * Outpatient Services (Routine) - Closed Specialty Diagnoses / Procedures Referred By Tisha troncoso Referred To Contact Diagnoses Other screening mammogram Procedures MAMMO DIGITAL SCREEN BILAT [employer] Shanika Zavala FNP [address] [place] [phone] Phone: tel: fax: Referral ID Status Reason Start Date Expiration Date Visits Re quested Visits Authorized [id number] Closed 07/13/2014 08/13/2015 1 1 Encounter Details Date Type Department Care Team (Latest Contact Info) Description 07/13/2014 Ancillary Orders [facility] [place] [address] [phone] Shanika Zavala FNP [address] [place] [phone] Other screening mammogram (Primary Dx) Social History Tobacco Use Types Packs/Day Years Used Date Smoking Tobacco: Never Smokeless Tobacco: Never Alcohol Use Standard Drinks/Week Comments No 0 (1 standard drink = 0.6 oz pur e alcohol) Comments No Sex and Gender Information Value Date Recorded Sex Assigned at Not on file Legal Sex Female 5:59 AM TALENT ANALYST Gender Identity Not on file Sexual Orientation Not on file 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 This examination was reviewed with the aid of a computer-aided detection system(CAD). The breast tissue density is average. No significant new findings since the prior mammogram(s). Procedure Note Annemarie Duggan MD - 08/18/2014 Bilateral Mammogram Reason for Exam: Screening Comparison: Compared to: 05/20/2013 MAMMO DIGITAL SCREEN BILAT MOBILE,04/09/2012 MAMMO DIGITAL SCREEN BILAT MOBILE , 04/04/2011 MAMMODIGITIZED STUDY, 04/12/2008 MAMMO DIGITIZED STUDY Findings: Bilateral CC and MLO views were obtained. This examination was reviewed with the aid of a computer-aided detectionsystem(CAD). The breast tissue density is average. No significant new findings since the prior mammogram(s). us Shanika Zavala MAIN LINE STATION ENGINEER MAMMO ORDERABLES Final Result documented in this encounter Visit Diagnoses Diagnosis Other screening mammogram- Primary Other screening mammogram documented in this encounter Care Teams Straightening Machine Operator Relationship Specialty Start Date End Date Charles Delgdaillo MD [address] [place] [address] PCP - General Family Practice 09/05/10 documented as of this encounter
--- OUTSIDE RECORDS SUMMARY | 2025-09-18 01:37 | XMS_ITS | Encounter Summary ---
Author Organization [email or web address] [facility] Address [address] [place] [address] Care Team Providers Care Fitter'S Assistant Name Role Phone Charles Delgadillo MD Primary Care Provider [phone] Encounter Details Date Type Department Care Team (Late st Contact Info) Description 01/11/2006 Outpatient Historical [facility] [address], [address] [place] [address] Tristen Aragon MD [address] [place] [phone] Cervicalgia (Primary Dx) Social History Tobacco Use Types Packs/Day Years Used Date Smoking Tobacco: Never Assessed Comments Unknown Sex and Gender Information Value Date Recorded Sex Assigned at Not on file Legal 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
--- OUTSIDE RECORDS SUMMARY | 2025-09-18 01:37 | XMS_ITS | Encounter Summary ---
Author Organization [facility] Address [address] [place] [address] Care Team Providers Care Clarification Operator Name Role Phone Charles Delgadillo MD Primary Care Provider [phone] Encounter Details Date Type Department Care Team (Latest Contact Info) Description 08/06/2006 Outpatient Historical 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
--- OUTSIDE RECORDS SUMMARY | 2025-09-18 01:37 | XMS_ITS | Encounter Summary ---
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); Thoracic or Lumbosacral Neuritis or Radiculitis, Unspecified Social History Tobacco Use Types Packs/Day Years Used Date Smoking Tobacco: Never Assessed Comments Unknown Sex and Gender Information Value Date Recorded Sex Assigned at Not on file Legal 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
--- OUTSIDE RECORDS SUMMARY | 2025-09-18 01:37 | XMS_ITS | Encounter Summary ---
Author Organization [facility] Address [address] [place] [address] Care Team Providers Care Flight Control Manager Name Role Phone Charles Delgadillo MD Primary Care Provider [phone] Encounter Details Date Type Department Care Team (Latest Contact Info) Description 12/11/2006 Outpatient Historical [facility] General and Trauma Surgery-[address] [place] [address] Adeel Jenkins S, DO [address] [place] [address] Unspecified Backache (Primary Dx) Social History Tobacco Use Types Packs/Day Years Used Date Smoking Tobacco: Never Assessed Comments Unknown Sex and Gender Information Value Date Recorded Sex Assigned at Not on file Legal Sex Female 5:59 AM X RAY 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
--- OUTSIDE RECORDS SUMMARY | 2025-09-18 01:37 | XMS_ITS | Encounter Summary ---
Author Organization [facility] Address [address] [place] [address] Care Team Providers Care Manager Business Systems Name Role Phone Charles Delgadillo MD Primary Care Provider [phone] Encounter Details Date Type Department Care Team (Latest Contact Info) Description 11/20/2006 Outpatient [facility] [address] [place] [address] [place] [address] [address] Antonio Lopez MD [address] [place] [address] Disorders of Sacrum (Primary Dx) Social History Tobacco Use Types Packs/Day Years Used Date Smoking Tobacco: Never Assessed Comments Unknown Sex and Gender Information Value Date Recorded Sex Assigned at Not on file Legal Sex Female 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
--- OUTSIDE RECORDS SUMMARY | 2025-09-18 01:37 | XMS_ITS | Encounter Summary ---
Author Organization [facility] Address [address] [place] [address] Care Team Providers Care Phone Operator Name Role Phone Charles Delgadillo MD Primary Care Provider [phone] Encounter Details Date Type Department Care Team (Latest Contact Info) Description 08/19/2006 Outpatient Historical [facility] Medicine [place] [address] [phone] Roz Capellan MD [address] [place] [phone] Plantar Fibromatosis (Primary Dx); Insomnia, Unspecified; Unspecified Myalgia and Myositis Social History Tobacco Use Types Packs/Day Years Used Date Smoking Tobacco: Never Assessed Comments Unknown Sex and Gender Information Value Date Recorded Sex Assigned at Not on file Legal 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 Female 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
--- OUTSIDE RECORDS SUMMARY | 2025-09-18 01:37 | XMS_ITS | Encounter Summary ---
Author Organization [facility] Address [address] [place] [address] Care Team Providers Care Distribution Coordinator Name Role Phone Charles Delgadillo MD Primary Care Provider [phone] Encounter Details Date Type Department Care Team (Latest Contact Info) Description 12/05/2006 Outpatient Historical [facility] [address] [place] [phone] Roz Capellan MD [address] [place] [phone] Allergy, Unspecified not Elsewhere Classified (Primary Dx); Cervicalgia; Unspecified Backache Social History Tobacco Use Types Packs/Day Years Used Date Smoking Tobacco: Never Assessed Comments Unknown Sex and Gender Information Value Date Recorded Sex Assigned at Not on file Legal Sex Female 5:59 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
--- OUTSIDE RECORDS SUMMARY | 2025-09-18 01:37 | XMS_ITS | Encounter Summary ---
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) Social History Tobacco Use Types Packs/Day Years Used Date Smoking Tobacco: Never Assessed Comments Unknown Sex and Gender Information Value Date Recorded Sex Assigned at Not on file 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
--- OUTSIDE RECORDS SUMMARY | 2025-09-18 01:37 | XMS_ITS | Encounter Summary ---
Author Organization [facility] Address [address] [place] [address] Care Team Providers Care Technical Support Agent Name Role Phone Charles Delgadillo MD Primary Care Provider [phone] Encounter Details Date Type Department Care Team (Latest Contact Info) Description 08/06/2006 Outpatient Historical [facility] [address] [place] [address] Nancy Muir FNP [address] [facility] 248 [facility] [address] [place] [address] Lumbago (Primary Dx); Enthesopathy of Hip Social History Tobacco Use Types Packs/Day Years Used Date Smoking Tobacco: Never Assessed Comments Unknown Sex and Gender Information Value Date Recorded Sex Assigned at Not on file Legal Sex Female 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
--- OUTSIDE RECORDS SUMMARY | 2025-09-18 01:37 | XMS_ITS | Encounter Summary ---
Author Organization [facility] Address [address] [place] [address] Care Team Providers Care Psychological Stress Evaluator Name Role Phone Charles Delgadillo MD Primary Care Provider [phone] Encounter Details Date Type Department Care Team (Latest Contact Info) Description 11/01/2006 Outpatient Historical [facility] [address] [place] [address] Melvin Caro Disorders of Sacrum (Primary Dx); Thoracic or Lumbosacral Neuritis or Radiculitis, Unspecified Social History Tobacco Use Types Packs/Day Years Used Date Smoking Tobacco: Never Assessed Comments Unknown Sex and Gender Information Value Date Recorded Sex Assigned at Not on file 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
--- OUTSIDE RECORDS SUMMARY | 2025-09-18 01:37 | XMS_ITS | Encounter Summary ---
Author Organization [facility] Address [address] [place] [address] Care Team Providers Care Bisque Kiln Drawer Name Role Phone Charles Delgadillo MD Primary Care Provider [phone] Encounter Details Date Type Department Care Team (Latest Contact Info) Description 06/19/2006 Outpatient Historical [facility] [address] [place] [phone] Melvin Caro Thoracic or Lumbosacral Neuritis or Radiculitis, Unspecified (Primary Dx) Social History Tobacco Use Types Packs/Day Years Used Date Smoking Tobacco: Never Assessed Comments Unknown Sex and Gender Information Value Date Recorded Sex Assigned at Not on file Legal Sex Female 5:59 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
--- OUTSIDE RECORDS SUMMARY | 2025-09-18 01:37 | XMS_ITS | Encounter Summary ---
Author Organization [facility] Address [address] [place] [address] Care Team Providers Care Trouble Shooter Name Role Phone Charles Delgadillo MD Primary Care Provider [phone] Encounter Details Date Type Department Care Team (Latest Contact Info) Description 10/18/2006 Outpatient Historical [facility] [place] [address] [place] [phone] Roz Capellan MD [address] [place] [address] Cervicalgia (Primary Dx); Classical Migraine without Mention of Intractable Migraine; Herpes Simplex without Mention of Complication; Pain in Limb Social History Tobacco Use Types Packs/Day Years Used Date Smoking Tobacco: Never Assessed Comments Unknown Sex and Gender Information Value Date Recorded Sex Assigned at Not on file Legal Sex Female 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 Gender Identity Not on file Sexual Orientation Not on file documented as of this encounter Plan of Treatment Not on file documented as of this encounter Visit Diagnoses Diagnosis Cervicalgia- Primary Migraine with aura, without mention of intractable migraine without mention of status migrainosus Herpes simplex without mention of complication Pain in limb Pain in soft tissues of limb documented in this encounter Care Teams Trouble Shooter Relationship Specialty Start Date End Date Charles Delgadillo MD [address] [address] PCP - General Family Practice 09/05/10 documented as of this encounter
--- OUTSIDE RECORDS SUMMARY | 2025-09-18 01:37 | XMS_ITS | Encounter Summary ---
Author Organization [facility] Address [address] [place] [address] Care Team Providers Care Coffee Brewer Name Role Phone Charles Delgadillo MD Primary Care Provider [phone] Encounter Details Date Type Department Care Team (Late st Contact Info) Description 05/08/2006 Outpatient Historical [facility] Imaging Services [place] [address] 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 Comparison: None. History: Low back pain, leg painNo significant focal bony lesion or acute fracture is identified. Alignment is normal. Conus isintact. L1-L2: No significant abnormality. L2-L3: No significant abnormality. L3-L4: No significant abnormality. L4-L5: Small disc bulge is present with very mild degenerative endplate changes. L5-S1: A left lateral osteophyte is present which appears to touch the exiting left L5 nerve root. Disc is otherwise unremarkable. IMPRESSION: Left lateral osteophyte at L5-S1 appears to touch the exiting left L5 nerve root. Mild degenerativedisc disease at L4-L5. - Dictated By: Seth Pepe M.D. Electronically Signed By: Seth Pepe M.D. Date Signed: 05/08/06 Procedure Note Provider, Historical - 08/11/2009 Multiplanar images of the lumbar spine were obtained without IVgadolinium. Comparison: None. History: Low back pain, leg painNo significant focal bony lesion or acute fractureis identified. Alignment is normal. Conus isintact. L1-L2: No significant abnormality. L2-L3: No significant abnormality. L3-L4: No significant abnormality. L4-L5: Small disc bulge is present with very mild degenerative endplate changes. L5-S1: A left lateral osteophyte is present which appears to touch the exitingleft L5 nerve root. Disc is otherwise unremarkable. IMPRESSION: Left lateral osteophyte at L5-S1 appears to touch the exiting left N5stjeu root. Mild degenerativedisc disease at L4-L5. - Dictated By: Seth Pepe M.D. Electronically Signed By: Seth Pepe M.D. Date Signed: 05/08/06 Tristen Aragon MD MR ORDERABLES Final Resul t documented in this encounter Visit Diagnoses Not on filedocumented in this encounter Care Teams Coffee Brewer Relationship Specialty Start Date End Date Charles Delgadillo MD [address] [place] [address] PCP - General Family Practice 09/05/10 documented as of this encounter
--- OUTSIDE RECORDS SUMMARY | 2025-09-18 01:37 | XMS_ITS | Encounter Summary ---
Author Organization [facility] Address [address] [place] [address] Care Team Providers Care Hand Violin Maker Name Role Phone Charles Delgadillo MD Primary Care Provider [phone] Encounter Details Date Type Department Care Team (Late st Contact Info) Description 12/12/2005 Outpatient Historical [facility] Neurology [address] [facility], [address] [place] [address] Tristen Ar[place] MD [address] [place] [id number] Cervicalgia (Primary Dx) Social History Tobacco Use Types Packs/Day Years Used Date Smoking Tobacco: Never Assessed Comments Unknown Sex and Gender Information Value Date Recorded Sex Assigned at Not on file Legal Sex Female 5:59 AM FINISHED CLOTH EXAMINER Gender Identity Not on file Sexual Orientation Not on file documented as of this encounter Plan of Treatment Not on file documented as of this encounter Procedures Procedure Name Priority Date/Time Associated Diagnosis Comments MRI CERVICAL WO CONTRAST Routine 12/12/2005 12:01 AM FINISHED CLOTH EXAMINER documented in this encounter Results * MRI CERVICAL WO CONTRAST (12/12/2005 12:01 AM FINISHED CLOTH EXAMINER) Anatomical Region Laterality Modality Spine Other 12/12/2005 12:0 1 AM FINISHED CLOTH EXAMINER Narrative 12/12/2005 12:01 AM FINISHED CLOTH EXAMINER MRI CERVICAL SPINE WITHOUT CONTRAST AND BRAIN WITH AND WITHOUT CONTRAST DONE ON 12-12-05 HISTORY: Neck pain, memory loss, aphasia, pain shooting to the head. Correlation is made with CT of the cervical spine from 10-26-05. The corpus callosum and pituitary gland show no significant abnormality. The diffusion weighted images show no acute ischemic changes. The ventricles are normal in size. 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 The brainstem is unremarkable. The paranasal sinuses are clear. Minimal cerebral white matter disease is present. The post contrast images of the brain show no abnormal enhancement. The cervical spine shows no significant focal bony lesion or acute fracture. The cervical spinal cord is normal in appearance. The thoracic spinal cord shows what appears to be a tiny syrinx versus mild dilatation of the central spinal canal at the T4-5 level. C1-2 and C2-3: No significant abnormality. C3-4: A tiny central disc protrusion is present. C4-5: There is a small disc bulge and bilateral uncovertebral osteophytes that cause mild left and moderate right neural foraminal narrowing. C5-6: A small disc bulge is present with moderate right neural foraminal narrowing. A small central disc protrusion is present. C6-7 and C7-T1: No significant abnormality. IMPRESSION: 1. 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 The exam is otherwise unremarkable. 2. The cervical spine shows a small disc protrusion at C6-7 and C3-4. Neural foraminal narrowing is present as described above. 3. There is a small syrinx versus mild dilatation of the central spinal canal at the T4-5 level. Clinical correlation recommended and further evaluate if patient has symptoms that relate to this region, a thoracic MRI with contrast could be obtained to better evaluate. [facility] Dictated By: Seth Pepe M.D. Electronically Signed By: Seth Pepe M.D. Date Signed: 12/14/05 [facility] Procedure Note 08/12/2009 MRI CERVICAL SPINE WITHOUT CONTRAST AND BRAIN WITH AND WITHOUT CONTRASTDONE ON 12-12-05 HISTORY: Neck pain, memory loss, aphasia, pain shooting to the head. Correlation is made with CT of the cervical spine from 10-26-05. The corpus callosum and pituitary gland show no significant abnormality.The diffusion weighted images show no acute ischemic changes. 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 The brainstem is unremarkable. Theparanasal sinuses are clear. Minimal cerebral white matter disease is present. The post contrast images of thebrain show no abnormal enhancement. The cervical spine shows no significant focal bony lesion or acutefracture. The cervical spinal cord is normal in appearance. The thoracic spinal cord shows what appears to be atiny syrinx versus mild dilatation of the central spinal canal at the T4-5 level. C1-2 and C2-3: No significant abnormality. C3-4: A tiny central disc protrusion is present. C4-5: There is a small disc bulge and bilateral uncovertebral osteophytes thatcause mild left and moderate right neural foraminal narrowing. C5-6: A small disc bulge is present with moderate right neural foraminalnarrowing. A small central disc protrusion is present. C6-7 and C7-T1: No significant abnormality. IMPRESSION: 1. The brain shows multiple old infarcts involving the cerebellarhemispheres. The exam is otherwise unremarkable. 2. The cervical spine shows a small disc protrusion at C6-7 and C3-4.Neural foraminal narrowing is present as described above. 3. There is a small syrinx versus mild dilatation of the central spinalcanal at the T4-5 level. Clinical correlation recommended and further evaluate if patient hassymptoms that relate to this region, a thoracic MRI with contrast could be obtained to better evaluate. [facility] Dictated By: Seth Pepe M.D. Electronically Signed By: Seth Pepe M.D. Date Signed: 12/14/05 [facility] us Tristen Aragon MD MR ORDERABLES Final Resul t documented in this encounter Visit Diagnoses Diagnosis Cervicalgia- Primary documented in this encounter Care Teams Hand Violin Maker Relationship Specialty Start Date End Date Charles Delgadillo MD [address] [place] [address] PCP - General Family Practice 09/05/10 documented as of this encounter
--- OUTSIDE RECORDS SUMMARY | 2025-09-18 01:37 | XMS_ITS | Encounter Summary ---
Author Organization [facility] Address [address] [place] [address] Care Team Providers Care Manager Style Name Role Phone Charles Delgadillo MD Primary Care Provider [phone] Encounter Details Date Type Department Care Team (Late st Contact Info) Description 12/19/2005 Outpatient Historical [facility] Imaging [facility] [place] [facility] 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 TECHNICIAN Gender Identity Not on file Sexual Orientation Not on file documented as of this encounter Plan of Treatment Not on file documented as of this encounter Procedures Procedure Name Priority Date/Time Associated Diagnosis Comments MRI THORACIC W WO CONTRAST Routine 12/19/2005 12:01 AM GEOPHYSICAL DATA TECHNICIAN documented in this encounter Results * MRI THORACIC W WO CONTRAST (12/19/2005 12:01 AM GEOPHYSICAL DATA TECHNICIAN) Anatomical Region Laterality Modality Spine Other 12/19/2005 12:0 1 AM GEOPHYSICAL DATA TECHNICIAN Narrative 12/19/2005 12:01 AM GEOPHYSICAL DATA TECHNICIAN MRI OF THE THORACIC SPINE BEFORE AND AFTER IV CONTRAST DATE OF EXAM: 12/19 REASON FOR EXAM: Back pain, syrinx seen on the previous MRI of the cervical spine. The thoracic spine is normal in sagittal alignment. The thoracic cord is abnormal at the T4, T5, and T6 levels. The cord appears to be flattened against the spinal column anteriorly at T5 and a small cavity is present at the T4 level within the central spinal cord. The intradural extramedullary compartment appears homogeneous, however. No obvious cysts or masses are identified. The neural foramina are widely patent. The intervertebral disc spaces are unremarkable. Mild spondylosis is seen anteriorly. The paraspinal tissues are unremarkable. IV contrast images show no areas of abnormal enhancement in or around the spinal canal. IMPRESSION: Abnormal spinal cord is present with what appears to be a compression of the spinal cord at the T5 level. 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 Less likely this could reflect dural adhesions and cord tethering / adhesions from old trauma or other insult. Small syrinx is present just above this level within the cord and is probably related to this cord compression. Further evaluation with CT myelography might be helpful if indicated. [facility] / Dictated By: Olu Chiu M.D. Electronically Signed By: Olu Chiu M.D. Date Signed: 12/19/05 Procedure Note 08/12/2009 MRI OF THE THORACIC SPINE BEFORE AND AFTER IV CONTRAST DATE OF EXAM: 12/19 REASON FOR EXAM: Back pain, syrinx seen on the previous MRI of the cervical spine. The thoracic spine is normal in sagittal alignment. The thoracic cord is abnormal at the T4, T5, and T6 levels. The cordappears to be flattened against the spinal column anteriorly at T5 and a small cavity is present at the C1amogg within the central spinal cord. The intradural extramedullary compartment appears homogeneous,however. No obvious cysts or masses are identified. The neural foramina are widely patent. Theintervertebral disc spaces are unremarkable. Mild spondylosis is seen anteriorly. The paraspinal tissues are unremarkable. IV contrast images show no areas of abnormal enhancement in or around thespinal canal. IMPRESSION: Abnormal spinal cord is present with what appears to be a compression ofthe spinal cord at the T5 level. Although no etiology is appreciated, this most likely reflects anintraspinal arachnoid cyst. Less likely this could reflect dural adhesions and cord tethering / adhesionsfrom old trauma or other insult. Small syrinx is present just above this level within the cord and isprobably related to this cord compression. Further evaluation with CT myelography might be helpful ifindicated. [facility] / Dictated By: Olu Chiu M.D. Electronically Signed By: Olu Chiu M.D. Date Signed: 12/19/05 us Tristen Aragon MD MR ORDERABLES Final Resul t documented in this encounter Visit Diagnoses Not on filedocumented in this encounter Care Teams Manager Style Relationship Specialty Start Date End Date Charles Delgadillo MD [address] [place] [address] PCP - General Family Practice 09/05/10 documented as of this encounter
--- OUTSIDE RECORDS SUMMARY | 2025-09-18 01:37 | XMS_ITS | Encounter Summary ---
Author Organization [facility] Address [address] [place] [address] Care Team Providers Care Psychology Technician Name Role Phone Charles Delgadillo MD Primary Care Provider [phone] Encounter Details Date Type Department Care Team (Latest Contact Info) Description 11/20/2006 Outpatient Historical [facility] [address] [place] [address] Antonio Lopez MD [address] [place] [address] Unspecified Backache (Primary Dx); Lumbosacral Spondylosis; Degeneration of Lumbar or Lumbosacral Intervertebral Disc Social History Tobacco Use Types Packs/Day Years Used Date Smoking Tobacco: Never Assessed Comments Unknown Sex and Gender Information Value Date Recorded Sex Assigned at Not on file Legal Sex Female 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
--- OUTSIDE RECORDS SUMMARY | 2025-09-18 01:37 | XMS_ITS | Encounter Summary ---
Author Organization [facility] Address [address] [place] [address] Care Team Providers Care Pay Agent Name Role Phone Charles Delgadillo MD Primary Care Provider [phone] Encounter Details Date Type Department Care Team (Late st Contact Info) Description 05/08/2006 Outpatient Historical [facility] Imaging Services [place] [address] [facility] [place] [phone] Tristen [place] MD [address] [place] [address] Other Allied Disorders of Spine (Primary Dx) Social History Tobacco Use Types Packs/Day Years Used Date Smoking Tobacco: Never Assessed Comments Unknown Sex and Gender Information Value Date Recorded Sex Assigned at Not on file Legal Sex Female 5:59 AM 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
--- OUTSIDE RECORDS SUMMARY | 2025-09-18 01:37 | XMS_ITS | Encounter Summary ---
Author Organization [employer] [facility] Address [address] [place] [address] Care Team Providers Care County Manager Name Role Phone Charles Delgadillo MD Primary Care Provider [phone] Encounter Details Date Type Department Care Team (Latest Contact Info) Description 08/09/2006 Outpatient Historical [facility] Pain Management Procedures [address] 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
--- OUTSIDE RECORDS SUMMARY | 2025-09-18 01:37 | XMS_ITS | Encounter Summary ---
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); Thoracic or Lumbosacral Neuritis or Radiculitis, Unspecified Social History Tobacco Use Types Packs/Day Years Used Date Smoking Tobacco: Never Assessed Comments Unknown Sex and Gender Information Value Date Recorded Sex Assigned at Not on file 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
--- OUTSIDE RECORDS SUMMARY | 2025-09-18 01:37 | XMS_ITS | Encounter Summary ---
Author Organization [email or web address] [facility] Address [address] [place] [address] Care Team Providers Care Rehabilitation Nurse Name Role Phone Charles Delgadillo MD Primary Care Provider [phone] Encounter Details Date Type Department Care Team (Late st Contact Info) Description 07/24/2006 Outpatient Historical [facility] Neurology [address] [facility], [address] [place] [address] Tristen Aragon MD [address] [place] [id number] Cervicalgia (Primary Dx) Social History Tobacco Use Types Packs/Day Years Used Date Smoking Tobacco: Never Assessed Comments Unknown Sex and Gender Information Value Date Recorded Sex Assigned at Not on file 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
--- OUTSIDE RECORDS SUMMARY | 2025-09-18 01:37 | XMS_ITS | Encounter Summary ---
Author Organization [facility] Address [address] [place] [address] Care Team Providers Care Ends Down Checker Name Role Phone Charles Delgadillo MD Primary Care Provider [phone] Encounter Details Date Type Department Care Team (Latest Contact Info) Description 10/30/2006 Outpatient [facility] [address] [place] [phone] Melvin Caro Disorders of Sacrum (Primary Dx) Social History Tobacco Use Types Packs/Day Years Used Date Smoking Tobacco: Never Assessed Comments Unknown Sex and Gender Information Value Date Recorded Sex Assigned at Not on file 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
--- OUTSIDE RECORDS SUMMARY | 2025-09-18 01:37 | XMS_ITS | Encounter Summary ---
Author Organization [facility] Address [address] [place] [address] Care Team Providers Care Tariff Expert Name Role Phone Charles Delgadillo MD Primary Care Provider [phone] Encounter Details Date Type Department Care Team (Latest Contact Info) Description 12/06/2006 Outpatient Historical [facility] [address] [place] [address] Antonio Lopez MD [address] [place] [address] Pre-Operative Cardiovascular Examination (Primary Dx) Social History Tobacco Use Types Packs/Day Years Used Date Smoking Tobacco: Never Assessed Comments Unknown Sex and Gender Information Value Date Recorded Sex Assigned at Not on file 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 Gender Identity Not on file Sexual Orientation Not on file documented as of this encounter Plan of Treatment Not on file documented as of this encounter Procedures Procedure Name Priority Date/Time Associated Diagnosis Comments BASIC METABOLIC PANEL Routine 12/06/2006 1:32 PM CDT XR DEXA BONE DENSITY AXIAL 1 OR MORE SITES Routine 12/06/2006 12:15 PM CDT documented in this encounter Results * BASIC METABOLIC PANEL (12/06/2006 1:32 PM CDT) GLUCOSE 87 70 - 110 mg/dL INTERFACE SYSTEM BUN 17 7 - 17 mg/dL INTERFACE SYSTEM CREATININE 1.1 0.7 - 1.2 mg/dL INTERFACE SYSTEM SODIUM 142 136 - 145 mEq/L INTERFACE SYSTEM POTASSIUM 4.0 3.5 - 5.0 mEq/L INTERFACE SYSTEM CHLORIDE 106 95 - 110 mEq/L INTERFACE SYSTEM CO2 27 22 - 32 mmol/l INTERFACE SYSTEM CALCIUM 9.7 8.4 - 10.5 mg/dL INTERFACE SYSTEM ANION GAP 13 9 - 20 mEq/L INTERFACE SYSTEM OSMOLALITY, CALCULATED 292 275 - 295 mOsm/Kg INTERFACE SYSTEM 12/06/2006 1:32 PM CDT us Antonio Lopez MD CHEMISTRY ORDERABLES Edited INTERFACE SYSTEM Refer to clinic/hospital department * XR DEXA BONE DENSITY AXIAL 1 OR MORE SITES (12/06/2006 12:15 PM CDT) Anatomical Region Laterality Modality Other 12/06/2006 12:1 5 PM CDT Narrative 12/06/2006 12:15 PM CDT 12/06/06 Reason for Consultation: Surgical menopause. On hormonal replacement therapy. Evaluate bone mineral density. DEXA EVALUATION OF THE LUMBAR SPINE AND RIGHT PROXIMAL FEMUR: BMD Young Adult Region g/cm2 % T L1-L4 1.051 89 -1.1 Femoral Neck 0.872 84 -1.2 Total Hip 0.877 87 -1.0 The technical quality of this examination is good. Serial measurement #1. Evaluation of the lumbar spine reveals some mild demineralization in the L1 to L4 region. This area, on average, has 11% less mineral than the mean projected for a young normal, aged 20 to 40, with a T score of -1.1 and a Z score of -0.2. The right proximal femur shows similar demineralization. The femoral neck has 16% and the total hip 13% less mineral than the mean projected for a young normal, ages 20 to 40, with T scores of -1.2 and -1.0 along with Z scores of -0.1 and -0.3 respectively. IMPRESSION: Both the lumbar spine and right proximal femur show evidence of mild involutional osteopenia. There is no evidence of advanced osteopenia or osteoporosis. She is not at increased risk for fragility fracture based on this data at this time. Recommend conservative management and a followup examination in approximately two years. ama / Dictated By: Chivo Baer M.D. Electronically Signed By: Chivo Baer M.D. Date Signed: 12/06/06 AMA Procedure Note 08/13/2009 12/06/06 Reason for Consultation: Surgical menopause. On hormonal replacement therapy. Evaluate bonemineral density. DEXA EVALUATION OF THE LUMBAR SPINE AND RIGHT PROXIMAL FEMUR: BMD Young Adult Region g/cm2 % T L1-L4 1.051 89 -1.1 Femoral Neck 0.872 84 -1.2 Total Hip 0.877 87 -1.0 The technical quality of this examination is good. Serial measurement #1. Evaluation of the lumbar spine reveals some mild demineralization in theL1 to L4 region. This area, on average, has 11% less mineral than the mean projected for a young normal,aged 20 to 40, with a T score of -1.1 and a Z score of -0.2. The right proximal femur shows similardemineralization. The femoral neck has 16% and the total hip 13% less mineral than the mean projectedfor a young normal, ages 20 to 40, with T scores of -1.2 and -1.0 along with Z scores of -0.1 and - 0.3respectively. IMPRESSION: Both the lumbar spine and right proximal femur show evidence of mildinvolutional osteopenia. There is no evidence of advanced osteopenia or osteoporosis. She is not at increased risk for fragility fracture based on this data atthis time. Recommend conservative management and a followup examination in approximately twoyears. ama / Dictated By: Chivo Baer M.D. Electronically Signed By: Chivo Baer M.D. Date Signed: 12/06/06 AMA Antonio Lopez MD DIAGNOSTIC IMAGING ORDERABLES Final Result documented in this encounter Visit Diagnoses Diagnosis Pre-operative cardiovascular examination- Primary documented in this encounter Care Teams Tariff Expert Relationship Specialty Start Date End Date Charles Delgadillo MD [address], [place] [address] PCP - General Family Practice 09/05/10 documented as of this encounter
--- OUTSIDE RECORDS SUMMARY | 2025-09-18 01:37 | XMS_ITS | Encounter Summary ---
Author Organization [facility] Address [address] [place] [address] Care Team Providers Care Industrial Technology Teacher Name Role Phone Charles Delgadillo MD Primary Care Provider [phone] Encounter Details Date Type Department Care Team (Late st Contact Info) Description 04/30/2006 Outpatient Historical [facility] Neurology [address] [facility], [address] [place] [address] Tristen Aragon MD [address] [place] [address] Skin Sensation Disturb (Primary Dx); Lumbago Social History Tobacco Use Types Packs/Day Years Used Date Smoking Tobacco: Never Assessed Comments Unknown Sex and Gender Information Value Date Recorded Sex Assigned at Not on file 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
--- OUTSIDE RECORDS SUMMARY | 2025-09-18 01:37 | XMS_ITS | Encounter Summary ---
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) Social History Tobacco Use Types Packs/Day Years Used Date Smoking Tobacco: Never Assessed Comments Unknown Sex and Gender Information Value Date Recorded Sex Assigned at Not on file 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
--- OUTSIDE RECORDS SUMMARY | 2025-09-18 01:37 | XMS_ITS | Encounter Summary ---
Author Organization [facility] Address [address] [place] [address] Care Team Providers Care Traffic Incident Management Manager Name Role Phone Charles Delgadillo MD Primary Care Provider [phone] Encounter Details Date Type Department Care Team (Latest Contact Info) Description 05/13/2006 Outpatient Historical [facility] Medicine [place] [address] [facility] [address] [place] [phone] Lamar Pineda NP NO ADDRESS ON FILE Other and Unspecified Hyperlipidemia (Primary Dx); Unspecified Disease of Spinal Cord (CMS/HCC) Social History Tobacco Use Types Packs/Day Years Used Date Smoking Tobacco: Never Assessed Comments Unknown Sex and Gender Information Value Date Recorded Sex Assigned at Not on file 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
--- OUTSIDE RECORDS SUMMARY | 2025-09-18 01:37 | XMS_ITS | Encounter Summary ---
Author Organization [facility] Address [address] [place] [address] Care Team Providers Care Finish Repairer Name Role Phone Charles Delgadillo MD Primary Care Provider [phone] Encounter Details Date Type Department Care Team (Latest Contact Info) Description 01/21/2006 Outpatient [facility] Medicine [place] [address] [facility] [address] [place] [address] Thomas Anne MD [address] [address] Other and Unspecified Hyperlipidemia (Primary Dx); Osteoarth NOS-Unspec Social History Tobacco Use Types Packs/Day Years Used Date Smoking Tobacco: Never Assessed Comments Unknown Sex and Gender Information Value Date Recorded Sex Assigned at Not on file 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
--- OUTSIDE RECORDS SUMMARY | 2025-09-18 01:37 | XMS_ITS | Encounter Summary ---
Author Organization [facility] Address [address] [place] [address] Care Team Providers Care Therapist Phys Name Role Phone Charles Delgadillo MD Primary Care Provider [phone] Encounter Details Date Type Department Care Team (Latest Contact Info) Description 07/15/2006 Outpatient Historical [address] [phone] Roz Capellan MD [address] [place] [phone] Unspecified Essential Hypertension (Primary Dx); Insomnia, Unspecified; Unspecified Endocrine Disorder; Unspecified Disorder of Kidney and Ureter; Vaccine for influenza Social History Tobacco Use Types Packs/Day Years Used Date Smoking Tobacco: Never Assessed Comments Unknown Sex and Gender Information Value Date Recorded Sex Assigned at Not on file 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 Gender Identity Not on file Sexual Orientation Not on file documented as of this encounter Plan of Treatment Not on file documented as of this encounter Visit Diagnoses Diagnosis Unspecified essential hypertension- Primary Insomnia, unspecified Unspecified endocrine disorder Unspecified disorder of kidney and ureter Vaccine for influenza Need for prophylactic vaccination and inoculation against influenza documented in this encounter Care Teams Therapist Phys Relationship Specialty Start Date End Date Charles Delgadillo MD [address] [address] PCP - General Family Practice 09/05/10 documented as of this encounter
--- OUTSIDE RECORDS SUMMARY | 2025-09-18 01:37 | XMS_ITS | Clinical Summary ---
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 Alex Phillips MD Shoulder Left: Shoulder [employer] 09/28/2021 [id number] / / [id number] Vlv Aort Evolut Fx Tavr 26mm Evolutfx-26 - [id number] Implanted:Qty: 1 on 10/16/2023 by Paul Ospina MD at [facility] Valve N/A: Heart [employer]- HEART VALVE 03/26/2025 EVOLUTFX-26 / [id number] / Explanted Type Area Welding Equipment Repairer Device Identifier Shelf Expiration Date Model / Serial / Lot Dlvry Sys Evolut Fx 23-29mm [id number] - [id number] Explanted:Qty: 1 on 10/16/2023 at [facility] Valve N/A: Heart [employer]- HEART VALVE 06/17/2025 D-EVOLUTFX -2329 / [id number] / [id number] Procedures Procedure Name Priority Date/Time Associated Diagnosis Comments CBC WITH DIFFERENTIAL Routine 08/16/2025 2:17 PM CHILD SUPPORT SPECIALIST Hospital discharge follow-up Anemia, unspecified type COMPREHENSIVE METABOLIC PANEL Routine 08/16/2025 2:17 PM CHILD SUPPORT SPECIALIST Type 2 diabetes mellitus with stage 3b chronic kidney disease, with long-term current use of insulin ([facility]) FRUCTOSAMINE Routine 08/16/2025 2:17 PM CHILD SUPPORT SPECIALIST Type 2 diabetes mellitus with stage 3b chronic kidney disease, with long-term current use of insulin (CMS/HCC) HEMOGLOBIN A1C Routine 08/16/2025 2:17 PM CHILD SUPPORT SPECIALIST Type 2 diabetes mellitus with stage 3b chronic kidney disease, with long-term current use of insulin (CMS/HCC) US ABDOMEN LIMITED Routine 08/12/2025 10 :33 AM CHILD SUPPORT SPECIALIST Hepatic cirrhosis, unspecified hepatic cirrhosis type, unspecified whether ascites present (CMS/HCC) TELEMETRY REPORT 08/09/2025 12:1 8 PM CHILD SUPPORT SPECIALIST TROPONIN 2 HR, 5TH GEN Timed Study 08/07/2025 11:35 AM CHILD SUPPORT SPECIALIST POC GLUCOSE Stat 08/07/2025 11:12 AM CHILD SUPPORT SPECIALIST URINALYSIS W/REFLEX MICROSCOPIC Stat 08/07/2025 10:11 AM CHILD SUPPORT SPECIALIST XR CHEST PA OR AP 1 VW Stat 08/07/2025 10:03 AM CHILD SUPPORT SPECIALIST DIFFERENTIAL, MANUAL Stat 08/07/2025 9:50 AM CHILD SUPPORT SPECIALIST BRAIN NATRIURETIC PEPTIDE, BNP OR PROBNP Stat 08/07/2025 9:50 AM CHILD SUPPORT SPECIALIST EXTRA TUBE (BLUE) Stat 08/07/2025 9:5 0 AM CHILD SUPPORT SPECIALIST EXTRA TUBE Stat 08/07/2025 9:50 AM CHILD SUPPORT SPECIALIST COMPREHENSIVE METABOLIC PANEL Stat 08/07/2025 9:50 AM CHILD SUPPORT SPECIALIST CBC WITH DIFFERENTIAL Stat 08/07/2025 9:50 AM CHILD SUPPORT SPECIALIST TROPONIN BASELINE, 5TH GEN Stat 08/07/2025 9:50 AM CHILD SUPPORT SPECIALIST OXYGEN VIA DEVICE TO KEEP O2 SAT ABOVE Stat 08/07/2025 9:36 AM CHILD SUPPORT SPECIALIST TROPONIN 2 HR, 5TH GEN Timed Study 07/29/2025 7:30 PM CHILD SUPPORT SPECIALIST URINALYSIS W/REFLEX MICROSCOPIC Stat 07/29/2025 7:17 PM CHILD SUPPORT SPECIALIST EKG 12-LEAD Stat 07/29/2025 6:43 [address] CHILD SUPPORT SPECIALIST CT ABDOMEN PELVIS W CONTRAST Stat 07/29/2025 6:19 PM CHILD SUPPORT SPECIALIST XR CHEST PA OR AP 1 VW Stat 07/29/2025 6:19 PM CHILD SUPPORT SPECIALIST DIFFERENTIAL, MANUAL Stat 07/29/2025 5:20 PM CHILD SUPPORT SPECIALIST TROPONIN BASELINE, 5TH GEN Stat 07/29/2025 5:20 PM CHILD SUPPORT SPECIALIST LIPASE Stat 07/29/2025 5:20 PM CHILD SUPPORT SPECIALIST COMPREHENSIVE METABOLIC PANEL Stat 07/29/2025 5:20 PM CHILD SUPPORT SPECIALIST CBC WITH DIFFERENTIAL Stat 07/29/2025 5:20 PM CHILD SUPPORT SPECIALIST HM DIABETES EYE EXAM Routine 01/19/2025 2:05 PM CDT MICROALBUMIN/CREATIN INE RATIO, RANDOM UR Routine 01/14/2025 3:18 PM CDT Essential hypertension LIPID PANEL Routine 12/06/2023 9:37 AM CDT Type 2 diabetes mellitus with stage 3b chronic kidney disease, with long-term current use of insulin ([facility]) Mixed hyperlipidemia COLONOSCOPY REPORT 09/26/2023 8: 32 AM CHILD SUPPORT SPECIALIST POC OCCULT BLOOD UP TO 3 CARDS Routine 07/15/2023 1:42 PM CDT Acute blood loss anemia Occult blood in stools XR DEXA BONE DENSITY AXIAL 1 OR MORE SITES Routine 10/23/2013 Disorder of bone and cartilage from Last 3 Months or Most Recently Relevant to Health Maintenance Results * (ABNORMAL) FRUCTOSAMINE (08/16/2025 2:17 PM CHILD SUPPORT SPECIALIST) FRUCTOSAMINE 288(H) 205 - 285 umol/L [facility], Comment: Test Performed at: [facility], [address] [place] [id number] Zahra Valencia MD,PhD,KARINA Blood 08/16/2025 2:17 PM CHILD SUPPORT SPECIALIST 08/17/2025 2:47 AM CHILD SUPPORT SPECIALIST us Renea BARRIENTOS CHEMISTRY ORDERABLES Final Re sult [facility] [phone] [facility], [address] [place] [address] * (ABNORMAL) CBC WITH DIFFERENTIAL (08/16/2025 2:17 PM CHILD SUPPORT SPECIALIST) Only the most recent of3 resultswithin the time period is included. [facility] WBC 9.0 3.8 - 10.8 Thousand/u L [facility] RBC 3.30(L) 3.80 - 5.10 Million/uL [facility] HEMOGLOBIN 10.8(L) 11.7 - 15.5 g/dL [facility] HEMATOCRIT 34.7(L) 35.9 - 46.0 % [facility] MCV 105.2(H) 81.4 - 101.7 fL [facility] MCH 32.7 27.0 - 33.0 pg [facility] MCHC 31.1(L) 31.6 - 35.4 g/dL [facility] Comment: For adults, a slight decrease in the calculated MCHC value (in the range of 30 to 32 g/dL) is most likely not clinically significant; however, it should be interpreted with caution in correlation with other red cell parameters and the patient's clinical condition. RDW 16.7(H) 11.0 - 15.0 % [facility] PLATELETS 432(H) 140 - 400 Thousand/u L [facility] MPV 12.0 7.5 - 12.5 fL [facility] NEUTROPHIL ABSOLUTE 4,635 1,500 - 7,800 cells/uL [facility] LYMPHOCYTE ABSOLUTE 3,096 850 - 3,900 cells/uL [facility] MONOCYTE ABSOLUTE 936 200 - 950 cells/uL [facility] EOSINOPHIL ABSOLUTE 189 15 - 500 cells/uL [facility] BASOPHILS ABSOLUTE 144 0 - 200 cells/uL [facility] NEUTROPHIL 51.5 % [facility] LYMPHOCYTES 34.4 % [facility] MONOCYTE 10.4 % [facility] EOSINOPHILS 2.1 % [facility] BASOPHILS 1.6 % [facility] Comment: Test Performed at: [facility] [address] [place] [address] Maritza Dang MD Blood 08/16/2025 2:17 PM CHILD SUPPORT SPECIALIST 08/17/2025 3:06 AM CHILD SUPPORT SPECIALIST us Norman Caldera MD HEMATOLOGY ORDERABLES Final Resu lt [facility] [phone] [facility] [address] [place] [address] * (ABNORMAL) HEMOGLOBIN A1C (08/16/2025 2:17 PM CHILD SUPPORT SPECIALIST) HEMOGLOBIN A1C 5.9(H) <5.7 % [facility] Comment: For someone without known diabetes, a hemoglobin A1c value between 5.7% and 6.4% is consistent with prediabetes and should be confirmed with a follow-up test. For someone with known diabetes, a value <7% indicates that their diabetes is well controlled. A1c targets should be individualized based on duration of diabetes, age, comorbid conditions, and other considerations. This assay result is consistent with an increased risk of diabetes. Currently, no consensus exists regarding use of hemoglobin A1c for diagnosis of diabetes for children. ESTIMATED AVERAGE GLUCOSE (MG/DL) 123 mg/dL [facility] ESTIMATED AVERAGE GLUCOSE (MMOL/L) 6.8 mmol/L [facility] Comment: Test Performed at: [facility] [address] [place] [address] Maritza Dang MD Blood 08/16/2025 2:17 PM CHILD SUPPORT SPECIALIST 08/17/2025 3:06 AM CHILD SUPPORT SPECIALIST us Norman Caldera MD CHEMISTRY ORDERABLES Final Resul t [facility] [phone] [facility] [address] [place] [address] * (ABNORMAL) COMPREHENSIVE METABOLIC PANEL (08/16/2025 2:17 PM CHILD SUPPORT SPECIALIST) Only the most recent of3 resultswithin the time period is included. GLUCOSE 235(H) 65 - 99 mg/dL [facility] Comment: Fasting reference interval For someone without known diabetes, a glucose value >125 mg/dL indicates that they may have diabetes and this should be confirmed with a follow-up test. BUN 16 7 - 25 mg/dL [facility] CREATININE 1.04(H) 0.60 - 1.00 mg/dL [facility] GFR 56(L) > OR = 60 mL/min/1.7 3m2 [facility] BUN/CREAT RATIO 15 6 - 22 (calc) [facility] SODIUM 139 135 - 146 mmol/L [facility] POTASSIUM 4.5 3.5 - 5.3 mmol/L [facility] CHLORIDE 105 98 - 110 mmol/L [facility] CO2 25 20 - 32 mmol/L [facility] CALCIUM 9.3 8.6 - 10.4 mg/dL [facility] TOTAL PROTEIN 7.0 6.1 - 8.1 g/dL [facility] ALBUMIN 3.5(L) 3.6 - 5.1 g/dL [facility] GLOBULIN 3.5 1.9 - 3.7 g/dL (calc) [facility] ALBUMIN/GLOBULIN RATIO 1.0 1.0 - 2.5 (calc) [facility] BILIRUBIN TOTAL 0.6 0.2 - 1.2 mg/dL [facility] ALKALINE PHOSPHATASE 219(H) 37 - 153 U/L [facility] AST 106(H) 10 - 35 U/L [facility] ALT 44(H) 6 - 29 U/L [facility] Comment: Test Performed at: [facility] [address] [place] [address] Maritza Dang MD Blood 08/16/2025 2:17 PM CHILD SUPPORT SPECIALIST 08/17/2025 3:06 AM CHILD SUPPORT SPECIALIST us Norman Caldera MD CHEMISTRY ORDERABLES Final Resul t [facility] [phone] [facility] [address] * US ABDOMEN LIMITED (08/12/2025 10:33 AM CHILD SUPPORT SPECIALIST) Anatomical Region Laterality Modality Abdomen Ultrasound 08/12/2025 10:3 3 AM CHILD SUPPORT SPECIALIST Impressions 08/12/2025 10:43 AM CHILD SUPPORT SPECIALIST IMPRESSION: 1. Cirrhotic liver. 2. No sonographically evident hepatic masses. 3. Biliary sludge and cholelithiasis. Narrative 08/12/2025 10:43 AM CHILD SUPPORT SPECIALIST Exam: Abdominal Ultrasound - Limited right upper quadrant with Doppler Reason for exam: Hepatic cirrhosis Comparison: CT scan dated 07/29/2025 FINDINGS: Liver: Coarsened hepatic echotexture with a nodular surface contour. No abnormal masses. No obvious hepatomegaly. Grossly patent portal and hepatic veins. Gallbladder: No gallbladder wall thickening or pericholecystic fluid. Biliary sludge and cholelithiasis. Negative sonographic Cross's sign was documented by the athletics teacher. Common bile duct: No dilation of the intrahepatic ducts. Common bile duct measures 5.1 mm. No right hydronephrosis or sonographically evident for renal calculi. Right kidney measures 9.1 cm length. Small exophytic right simple renal cyst. Pancreas: Poorly visualized due to overlying bowel gas. Procedure Note Drake Maki MD - 08/12/2025 Exam: Abdominal Ultrasound - Limited right upper quadrant with Doppler Reason for exam: Hepatic cirrhosis Comparison: CT scan dated 07/29/2025 FINDINGS: Liver: Coarsened hepatic echotexture with a nodular surface contour. No abnormal masses. No obvious hepatomegaly. Grossly patent portal and hepatic veins. Gallbladder: No gallbladder wall thickening or pericholecystic fluid. Biliary sludge and cholelithiasis. Negative sonographic Cross's sign was documented by the athletics teacher. Common bile duct: No dilation of the intrahepatic ducts. Common bile duct measures 5.1 mm. No right hydronephrosis or sonographically evident for renal calculi. Right kidney measures 9.1 cm length. Small exophytic right simple renal cyst. Pancreas: Poorly visualized due to overlying bowel gas. IMPRESSION: 1. Cirrhotic liver. 2. No sonographically evident hepatic masses. 3. Biliary sludge and cholelithiasis. us La Hancock NP US ORDERABLES Final Result * TELEMETRY REPORT (08/09/2025 12:18 PM CHILD SUPPORT SPECIALIST) us Provider Scanning ECG ORDERABLES Final Result * (ABNORMAL) TROPONIN 2 HR, 5TH GEN (08/07/2025 11:35 AM CHILD SUPPORT SPECIALIST) Only the most recent of2 resultswithin the time period is included. TROPONIN T, 2 HR 5TH GEN 26(H) <=10 ng/L 08/07/2025 12:08 PM CHILD SUPPORT SPECIALIST [facility] Comment:Hemolysis can falsel y decrease Troponin quantitation. DELTA 2HR TROPONIN T -3 See Interp. 08/07/2025 12:08 PM CHILD SUPPORT SPECIALIST [facility] Blood Venipuncture / Unknown 08/07/2025 11:35 AM CHILD SUPPORT SPECIALIST 08/07/2025 11:45 AM CHILD SUPPORT SPECIALIST Narrative [facility] - 08/07/2025 12:08 PM CHILD SUPPORT SPECIALIST Troponin elevated. Delta not changing. us Jose Pittman DO CHEMISTRY ORDERABLES Final Resul t [facility] CLIA # [id number] [address] [place] [address] * (ABNORMAL) POC GLUCOSE (08/07/2025 11:12 AM CHILD SUPPORT SPECIALIST) GLUCOSE POC 408(HH) 74 - 99 mg/dL 08/07/2025 11:12 AM [facility] SPECIMEN SOURCE, GLUCOSE POC Whole Blood 08/07/2025 11:12 AM [facility] COMMENT, GLU POC Alerted Nurse/LISA/DR 08/07/2025 11:12 AM [facility] Blood, whole 08/07/2025 11:1 2 AM CHILD SUPPORT SPECIALIST 08/07/2025 11:20 AM CHILD SUPPORT SPECIALIST us Jose Pittman DO POINT OF CARE TESTING Final Resu lt Performing Organization Address [facility] Co de Phone Number [facility] CLIA # [id number] [address] [place] [address] * (ABNORMAL) URINALYSIS WITH REFLEX MICROSCOPIC (08/07/2025 10:11 AM CHILD SUPPORT SPECIALIST) Only the most recent of2 resultswithin the time period is included. COLOR UA Yellow Pale to Dark Yellow 08/07/2025 10:29 AM [facility] CLARITY UA Clear Clear 08/07/2025 10:29 AM [facility] SPECIFIC GRAVITY UA 1.010 1.003 - 1.035 08/07/2025 10:29 AM [facility] PH UA 6.5 5.0 - 8.0 08/07/2025 10:29 AM [facility] LEUKOCYTE ESTERASE UA Negative Negative 08/07/2025 10:29 AM [facility] NITRITE UA Negative Negative 08/07/2025 10:29 AM [facility] PROTEIN UA Negative Negative 08/07/2025 10:29 AM [facility] GLUCOSE UA 3+(A) Negative 08/07/2025 10:29 AM CHILD SUPPORT SPECIALIST [facility] KETONES UA Negative Negative 08/07/2025 10:29 AM [facility] UROBILINOGEN UA 1.0 <2.0 mg/dL 10:29 AM [facility] BILIRUBIN UA Negative Negative 08/07/2025 10:29 AM [facility] BLOOD UA Negative Negative 08/07/2025 10:29 AM [facility] Urine URINE SPECIMEN OBTAINED BY CLEAN CATCH PROCEDURE / Unknown 08/07/2025 10:11 AM CHILD SUPPORT SPECIALIST 08/07/2025 10:24 AM CHILD SUPPORT SPECIALIST us Jose Pittman DO URINE ORDERABLES Final Result [facility] CLIA # [id number] [address] [place] [address] * XR CHEST PA OR AP 1 VW (08/07/2025 10:03 AM CHILD SUPPORT SPECIALIST) Only the most recent of2 resultswithin the time period is included. Anatomical Region Laterality Modality Chest Computed Radiogr aphy 08/07/2025 10:0 3 AM CHILD SUPPORT SPECIALIST Impressions 08/07/2025 10:08 AM CHILD SUPPORT SPECIALIST Impression: Mildly improved lung expansion. Exam is otherwise stable without significant change from prior study. Narrative 08/07/2025 10:08 AM CHILD SUPPORT SPECIALIST Exam: XR CHEST PA OR AP 1 VW Date/Time of Exam: 08/07/2025 10:03 AM Reason For Exam: Chest Pain, Shortness of Breath SOB. Diagnosis: See Reason for Exam. Comparison: July 29, 2025. Procedure Note Tarik Garcia MD - 08/07/2025 Exam: XR CHEST PA OR AP 1 VW Date/Time of Exam: 08/07/2025 10:03 AM Reason For Exam: Chest Pain, Shortness of Breath SOB. Diagnosis: See Reason for Exam. Comparison: July 29, 2025. Impression: Mildly improved lung expansion. Exam is otherwise stable without significant change from prior study. us Jose Pittman DO DIAGNOSTIC IMAGING ORDERABLES Fi nal Result * EXTRA TUBE (BLUE) (08/07/2025 9:50 AM CHILD SUPPORT SPECIALIST) Blood Venipuncture / Unknown 08/07/2025 9:50 AM CHILD SUPPORT SPECIALIST 08/07/2025 10:03 AM CHILD SUPPORT SPECIALIST us Jose Pittman DO HEMATOLOGY ORDERABLES Final Resu lt Performing Organization Address City/[facility]/ZIP Co de Phone Number [id number] [address] [place] [address] * (ABNORMAL) TROPONIN BASELINE, 5TH GEN (08/07/2025 9:50 AM CHILD SUPPORT SPECIALIST) Only the most recent of2 resultswithin the time period is included. TROPONIN T, BASELINE 5TH GEN 29(H) <=10 ng/L 08/07/2025 10:26 AM CHILD SUPPORT SPECIALIST [facility] Blood Venipuncture / Unknown 08/07/2025 9:50 AM CHILD SUPPORT SPECIALIST 08/07/2025 10:03 AM CHILD SUPPORT SPECIALIST Narrative [facility] - 08/07/2025 10:26 AM CHILD SUPPORT SPECIALIST Troponin elevated. Jose Pittman DO CHEMISTRY ORDERABLES Final Resul t Performing Organization Address [facility] Co de Phone Number [facility] CLIA # [id number] [address] [place] [address] * (ABNORMAL) MANUAL DIFFERENTIAL (08/07/2025 9:50 AM CHILD SUPPORT SPECIALIST) Only the most recent of2 resultswithin the time period is included. SEGMENTED NEUTROPHILS 59 45 - 70 % 08/07/2025 10:23 AM [facility] LYMPHOCYTES RELATIVE 26 20 - 45 % 08/07/2025 10:23 AM [facility] MONOCYTES RELATIVE 12(H) 2 - 8 % 08/07/2025 10:23 AM [facility] EOSINOPHILS RELATIVE 3 0 - 5 % 08/07/2025 10:23 AM [facility] NEUTROPHILS ABSOLUTE COUNT 7.14(H) 1.78 - 5.38 K/uL 08/07/2025 10:23 AM [facility] LYMPHOCYTES ABSOLUTE 3.15 1.20 - 4.00 K/uL 08/07/2025 10:23 AM [facility] MONOCYTES ABSOLUTE 1.45(H) 0.30 - 0.82 K/uL 08/07/2025 10:23 AM [facility] EOSINOPHILS ABSOLUTE 0.36 0.04 - 0.54 K/uL 08/07/2025 10:23 AM [facility] TOTAL CELLS COUNTED IN DIFF 100 08/07/2025 10:23 AM [facility] PLATELET EST. Adequate 08/07/2025 10:23 AM [facility] ANISOCYTOSIS 2+ /hpf 08/07/2025 10:23 AM [facility] MICROCYTES 2+ /hpf 08/07/2025 10:23 AM [facility] HYPOCHROMIA 1+ /hpf 08/07/2025 10:23 AM [facility] TARGET CELLS 1+ /hpf 08/07/2025 10:23 AM [facility] CLUMPED PLATELETS Present 025 10:23 AM [facility] Comment:Platelet clumping ob served on slide. Platelets appear adequate and normal. Blood Venipuncture / Unknown 08/07/2025 9:50 AM CHILD SUPPORT SPECIALIST 08/07/2025 10:03 AM [facility] us Jose Pittman DO HEMATOLOGY ORDERABLES COM Final Result [facility] CLIA # [id number] [address] [place] [address] * BRAIN NATRIURETIC PEPTIDE, BNP OR PROBNP (08/07/2025 9:50 AM [facility]) PROBNP, N TERMINAL 120 0 - 450 pg/mL 08/07/2025 10:26 AM [facility] Comment: INTERPRETIVE COMMENT based on diagnosis: Diagnostic NT pro-BNP cutoffs for Heart Failure in the absence of renal failure is suggested for the following ranges <75 years: <125 pg/mL >=75 years: <450 pg/mL Exclusionary rule out cut-point for Acute Decompensated Heart Failure(ADHF) All ages: <300 pg/mL Diagnostic NT pro-BNP cutoffs for Acute Decompensated Heart Failure(ADHF) in the absence of renal failure is suggested for the following ages <50 years: > 450 pg/mL 50-75 years: > 900 pg/mL >75 years: >1800 pg/mL Blood Venipuncture / Unknown 08/07/2025 9:50 AM CHILD SUPPORT SPECIALIST 08/07/2025 10:03 AM CHILD SUPPORT SPECIALIST us Jose Pittman DO CHEMISTRY ORDERABLES Final Resul t [id number] [address] [place] [address] * EKG 12 lead (07/29/2025 6:43 PM CHILD SUPPORT SPECIALIST) Narrative Mychal Perera MD - 07/29/2025 6:43 PM CHILD SUPPORT SPECIALIST Mychal Perera MD 07/29/2025 6:43 PM EKG 12 lead Date/Time: 07/29/2025 6:43 PM Performed by: Mychal Perera MD Authorized by: Mychal Perera MD ECG interpreted by ED Physician in the absence of a agriculture intern: yes Rate: ECG rate assessment: age appropriate Rhythm: Rhythm Origin: sinus Rhythm morphology: narrow [place]: QRS axis: Normal Intervals: normal QRSTT: QRSTT changes: No us Mychal Perera MD ECG ORDERABLES Final Result * CT ABDOMEN PELVIS W CONTRAST (07/29/2025 6:19 PM CHILD SUPPORT SPECIALIST) Anatomical Region Laterality Modality Abdomen Computed Tomogra phy 07/29/2025 6:54 PM CHILD SUPPORT SPECIALIST Impressions 07/29/2025 6:54 PM CHILD SUPPORT SPECIALIST IMPRESSION: 1. Mild diffuse wall-thickening of the bladder. Possible cystitis. Clinical correlation is recommended. 2. Cirrhotic morphology of the liver. 3. The spleen is not identified. 4. Probable small right renal cyst. 5. Colonic diverticulosis without evidence of diverticulitis. 6. Multiple enlarged collateral veins in the bilateral lower intra-abdominal wall are suggestive of a more central obstruction. There is possible obstruction of the left common iliac vein, although this vein is obscured by metallic artifact. 7. Obrc-dc-wkodeuyr diastases recti of the mid anterior abdominal wall. 8. Indwelling anterior abdominal wall surgical meshes. 9. Indwelling IVC filter. 10. Hysterectomy. 11. Postsurgical changes of an arthrodesis at L4-L5. 12. Postsurgical changes of the right hip arthroplasty. 13. Postsurgical changes of a TAVR. Narrative 07/29/2025 6:54 PM CHILD SUPPORT SPECIALIST EXAM: CT ABDOMEN PELVIS W CONTRAST DIAGNOSIS/REASON FOR EXAM: Abdominal pain, acute, nonlocalized. DATE/TIME OF EXAM: 07/29/2025, 6:19 PM. COMPARISON: CT of the abdomen and pelvis obtained on 06/01/2025. TECHNIQUE: [address] images of the abdomen were obtained with contrast. Sagittal and coronal reconstructions were created. CONTRAST: Isovue-300, 100 mL intravenous. FINDINGS: The liver is normal in size and mildly nodular in contour. The left lobe of the liver is somewhat prominent in size relative to the right. The gallbladder is mildly distended. The spleen is not identified. A possible small splenule is located in the left or quadrant the abdomen. The pancreas is small in size. No adrenal nodules identified. The left kidney is unremarkable. At the lateral midpole of the right kidney, there is a 1.3 x 0.8 cm round well-circumscribed hypodense lesion. There is no hydronephrosis or hydroureter. The pelvic structures are partially obscured by metallic artifact. The bladder is mildly distended. There is possible mild diffuse wall-thickening of the bladder. The uterus and ovaries are not identified. A small amount of stool and gas is seen throughout the colon. The colon has multiple diverticula with no surrounding fat stranding. There is no significant bowel dilation. The stomach is nondistended. No free intra-abdominal air or free fluid is seen. The abdominal aorta is normal in caliber and contains a moderate amount of predominantly calcified plaque. The arteries about pelvis contain a moderate amount of calcified plaque. The apex of an inferior vena cava filter is located at the level of the L2 superior endplate. The legs of the IVC filter extend beyond the wall of the inferior vena cava. Multiple enlarged collateral veins are present within the bilateral lower anterior abdominal wall. A surgical mesh abuts the bilateral upper anterior abdominal wall. There is xbyd-vc-bbqciugg diastases recti of the mid anterior abdominal wall. A surgical mesh is also located in the bilateral lower intra-abdominal wall. The heart size is mildly enlarged. There are annular calcifications and mitral valve. Postsurgical changes of an aortic valve replacement are present. The lung bases are unremarkable. There are postsurgical changes of an arthrodesis at L4-L5. There are mild degenerative changes of the lower lumbosacral spine and lower thoracic spine. Changes of a right hip arthroplasty are present. Procedure Note Conner Alvarez MD - 07/29/2025 EXAM: CT ABDOMEN PELVIS W CONTRAST DIAGNOSIS/REASON FOR EXAM: Abdominal pain, acute, nonlocalized. DATE/TIME OF EXAM: 07/29/2025, 6:19 PM. COMPARISON: CT of the abdomen and pelvis obtained on 06/01/2025. TECHNIQUE: [address] images of the abdomen were obtained with contrast. Sagittal and coronal reconstructions were created. CONTRAST: Isovue-300, 100 mL intravenous. FINDINGS: The liver is normal in size and mildly nodular in contour. The left lobe of the liver is somewhat prominent in size relative to the right. The gallbladder is mildly distended. The spleen is not identified. A possible small splenule is located in the left or quadrant the abdomen. The pancreas is small in size. No adrenal nodules identified. The left kidney is unremarkable. At the lateral midpole of the right kidney, there is a 1.3 x 0.8 cm round well-circumscribed hypodense lesion. There is no hydronephrosis or hydroureter. The pelvic structures are partially obscured by metallic artifact. The bladder is mildly distended. There is possible mild diffuse wall-thickening of the bladder. The uterus and ovaries are not identified. A small amount of stool and gas is seen throughout the colon. The colon has multiple diverticula with no surrounding fat stranding. There is no significant bowel dilation. The stomach is nondistended. No free intra-abdominal air or free fluid is seen. The abdominal aorta is normal in caliber and contains a moderate amount of predominantly calcified plaque. The arteries about pelvis contain a moderate amount of calcified plaque. The apex of an inferior vena cava filter is located at the level of the L2 superior endplate. The legs of the IVC filter extend beyond the wall of the inferior vena cava. Multiple enlarged collateral veins are present within the bilateral lower anterior abdominal wall. A surgical mesh abuts the bilateral upper anterior abdominal wall. There is ufdi-gd-yapdtwbt diastases recti of the mid anterior abdominal wall. A surgical mesh is also located in the bilateral lower intra-abdominal wall. The heart size is mildly enlarged. There are annular calcifications and mitral valve. Postsurgical changes of an aortic valve replacement are present. The lung bases are unremarkable. There are postsurgical changes of an arthrodesis at L4-L5. There are mild degenerative changes of the lower lumbosacral spine and lower thoracic spine. Changes of a right hip arthroplasty are present. IMPRESSION: 1. Mild diffuse wall-thickening of the bladder. Possible cystitis. Clinical correlation is recommended. 2. Cirrhotic morphology of the liver. 3. The spleen is not identified. 4. Probable small right renal cyst. 5. Colonic diverticulosis without evidence of diverticulitis. 6. Multiple enlarged collateral veins in the bilateral lower intra-abdominal wall are suggestive of a more central obstruction. There is possible obstruction of the left common iliac vein, although this vein is obscured by metallic artifact. 7. 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 8. Indwelling anterior abdominal wall surgical meshes. 9. Indwelling IVC filter. 10. Hysterectomy. 11. Postsurgical changes of an arthrodesis at L4-L5. 12. Postsurgical changes of the right hip arthroplasty. 13. Postsurgical changes of a TAVR. Mychal Perera MD CT ORDERABLES Final Result * LIPASE (07/29/2025 5:20 PM CHILD SUPPORT SPECIALIST) LIPASE 18 13 - 60 U/L 07/29/2025 5:51 PM CHILD SUPPORT SPECIALIST [facility] Blood BLOOD SPECIMEN / Unknown Collection / Unknown 07/29/2025 5:20 PM CHILD SUPPORT SPECIALIST 07/29/2025 5:33 PM CHILD SUPPORT SPECIALIST Mychal Perera MD CHEMISTRY ORDERABLES Final Result [facility] # [id number] [address] [place] [address] * HM DIABETES EYE EXAM (01/19/2025 2:05 PM CDT) us Abstract Provider HEALTH MAINTENANCE Edited Resu lt - Final * MICROALBUMIN/CREATININE RATIO, RANDOM UR (01/14/2025 3:18 PM CDT) CREATININE, URINE 98 20 - 275 mg/dL [facility] ALBUMIN, URINE 0.4 See Note: mg/dL [facility] Comment: Reference Range: Reference Range Not established ALB/CREAT RATIO, URINE 4 <30 mg/g creat [facility] Comment: The ADA defines abnormalities in albumin excretion as follows: Albuminuria Category Result (mg/g creatinine) Normal to Mildly increased <30 Moderately increased 30-299 Severely increased > OR = 300 The ADA recommends that at least two of three specimens collected within a 3-6 month period be abnormal before considering a patient to be within a diagnostic category. FASTING:UNKNOWN FASTING: UNKNOWN Test Performed at: [facility] [address] [place] [address] Maritza Dang MD Urine URINE SPECIMEN OBTAINED BY CLEAN CATCH PROCEDURE / Unknown 01/14/2025 3:18 PM CDT 01/15/2025 3:06 AM CDT us Norman Caldera MD URINE ORDERABLES Final Result [facility] [phone] [facility] [address] [address] * (ABNORMAL) LIPID PANEL (12/06/2023 9:37 AM CDT) CHOLESTEROL 171 <200 mg/dL [facility] HDL 58 > OR = 50 mg/dL [facility] TRIGLYCERIDE 159(H) <150 mg/dL [facility] LDL CALCULATED 87 mg/dL (calc) [facility] Comment: Reference range: <100 Desirable range <100 mg/dL for primary prevention; <70 mg/dL for patients with CHD or diabetic patients with > or = 2 CHD risk factors. LDL-C is now calculated using the Adeel-Ponce calculation, which is a validated novel method providing better accuracy than the Friedewald equation in the estimation of LDL-C. Adeel SS et al. KAITLIN. 2013;310(19): 5800-9571 (http://education.[employer]/faq/OXE565) CHOL/HDL RATIO 2.9 <5.0 (calc) [facility] TOTAL NON-HDL CHOL(LDL+VLDL) 113 <130 mg/dL (calc) [facility] Comment: For patients with diabetes plus 1 major ASCVD risk factor, treating to a non-HDL-C goal of <100 mg/dL (LDL-C of <70 mg/dL) is considered a therapeutic option. Test Performed at: [facility] [address] [place] [address] Maritza Dang MD Blood 12/06/2023 9:37 AM CDT 12/07/2023 2:47 AM CDT Renea BARRIENTOS CHEMISTRY ORDERABLES Final Re sult [facility] [phone] [facility] [place] [address] [place] [address] * COLONOSCOPY REPORT (09/26/2023 8:32 AM CHILD SUPPORT SPECIALIST) Narrative Procedure Note Bren Vinson MD - 09/26/2023 8:32 AM CST [facility] Patient Name: Rico Bal Procedure Date: 09/26/2023 Date of : 1950 Admit Type: Outpatient Age: 73 Attending MD: Bren Vinson , , Procedure: Colonoscopy Indications: Iron deficiency anemia Providers: Bren Vinson Referring MD: Medicines: Monitored Anesthesia Care Complications: No immediate complications. Procedure: After I obtained informed consent, the scope was passed under direct vision. Throughout the procedure, the patient's blood pressure, pulse, and oxygen saturations were monitored continuously. The Colonoscope was introduced through the anus and advanced to the cecum, identified by appendiceal orifice and ileocecal valve. The colonoscopy was performed with moderate difficulty due to restricted mobility of the colon and significant looping. Successful completion of the procedure was aided by withdrawing the scope and replacing with the pediatric colonoscope and applying abdominal pressure. The patient tolerated the procedure fairly well. The quality of the bowel preparation was evaluated using the BBPS (Woodland Bowel Preparation Scale) with scores of: Right Colon = 1 (portion of mucosa seen, but other areas not well seen due to staining, residual stool and/or opaque liquid), Transverse Colon = 2 (minor amount of residual staining, small fragments of stool and/or opaque liquid, but mucosa seen well) and Left Colon = 2 (minor amount of residual staining, small fragments of stool and/or opaque liquid, but mucosa seen well). The total BBPS score equals 5. Estimated Blood Loss: Estimated blood loss was minimal. Findings: Many large-mouthed and small-mouthed diverticula were found in the sigmoid colon. An 8 mm polyp was found in the descending colon. The polyp was sessile. The polyp was removed with a cold snare. Resection and retrieval were complete. Two sessile polyps were found in the ascending colon. The polyps were 3 to 4 mm in size. These polyps were removed with a cold snare. Resection and retrieval were complete. Internal hemorrhoids were found. The hemorrhoids were moderate. The exam was otherwise without abnormality on direct and retroflexion views. Impression: - Diverticulosis in the sigmoid colon. - One 8 mm polyp in the descending colon, removed with a cold snare. Resected and retrieved. - Two 3 to 4 mm polyps in the ascending colon, removed with a cold snare. Resected and retrieved. - Internal hemorrhoids. - The examination was otherwise normal on direct and retroflexion views. Recommendation: no further colonoscopies recommended. 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 cc note to her roping tender recommending initiation of either sub Q octreotide or thalidomide for the treatment of transfusion dependant bleeding AVMs. Replacement of the aortic valve has a significant chance of improving bleeding. Could perform capsule study but doubt this will change management facilitator. Bren Vinson, 09/26/2023 8:32:39 AM Number of Addenda: 0 Note Initiated On: 09/26/2023 6:48 AM Scope Withdrawal Time 0 hours 10 minutes 28 seconds Scope In: 7:41:24 AM Scope Out: 8:15:21 AM [address] [place], [place] Bren Vinson MD GI PROCEDURE ORDERABLES Final Result * (ABNORMAL) POC OCCULT BLOOD UP TO 3 CARDS (07/15/2023 1:42 PM CDT) OCCULT BLOOD 1 CARD POC Positive(A ) Negative [facility] OCCULT BLOOD 2 CARD POC Positive(A ) Negative [facility] OCCULT BLOOD 3 CARD POC Positive(A ) Negative [facility] INTERNAL KIT QC POC Pass Pass [facility] CARD LOT NUMBER POC [id number] [facility] CARD EXPIRATION DATE POC 05/24/2024 [facility] DEVELOPER LOT NUMBER POC [id number] [facility] DEVELOPER EXPIRATION DATE POC 11/21/2024 [facility] Stool STOOL SPECIMEN / Unknown 07/15/2023 1:42 PM CDT us Emily Garcia SHEET HEATER HELPER POINT OF CARE TESTING Fin al Result [facility] CLIA# [id number] [address] [place] [address] * XR DEXA BONE DENSITY AXIAL 1 OR MORE SITES (10/23/2013) Anatomical Region Laterality Modality Other Shanika Zavala SHEET HEATER HELPER DIAGNOSTIC IMAGING ORDERABLES Final Result from Last 3 Months or Most Recently Relevant to Health Maintenance Additional Health Concerns Active Problems Noted Date Diagnosed Date PALLAVI MYC HYPERTENSION CARE PLAN PROBLEM 4 Insurance [facility] PPO SNP MCR * Guarantor: RICO BAL Account Type Relation to Patient Date of Phone Billing Address Personal/Family [address] [place] [address] RX [facility] Medicare Part D RX [facility] PLANS (INTERNAL) [facility] Internal Plans Advance Directives For more information, please contact: [phone] Documents on File Type Date Recorded Patient Senior Reservations Agent Expl anation Advance Directive POA 03/01/2015 1:22 PM Ad licona Directive POA * Full Code (Latest Code Status on File) Date Activated Date Inactivated Comments 10/16/2023 7:56 AM 10/17/2023 1:25 PM * Full Code Date Activated Date Inactivated Comments 09/26/2023 7:04 AM 09/26/2023 10:51 AM * Full Code Date Activated Date Inactivated Comments 09/03/2023 1:25 PM 09/03/2023 3:48 PM * Full Code Date Activated Date Inactivated Comments 09/03/2023 6:04 AM 09/03/2023 1:25 PM * Full Code Date Activated Date Inactivated Comments 08/05/2023 11:32 AM 08/05/2023 3:09 PM Care Teams Bookmobile Librarian Relationship Specialty Start Date End Date Norman Caldera MD [address] [place] [phone] PCP - General Family Practice 09/06/23
--- OUTSIDE RECORDS SUMMARY | 2025-09-18 01:37 | XMS_ITS | Encounter Summary ---
Author Organization [facility] Address [address] [place] [address] Care Team Providers Care Disease Education Specialist Name Role Phone Charles Delgadillo MD Primary Care Provider [phone] Encounter Details Date Type Department Care Team (Latest Contact Info) Description 08/09/2006 Outpatient Historical [facility] [address] [place] [phone] Melvin Caro Disorders of Sacrum (Primary Dx); Thoracic or Lumbosacral Neuritis or Radiculitis, Unspecified Social History Tobacco Use Types Packs/Day Years Used Date Smoking Tobacco: Never Assessed Comments Unknown Sex and Gender Information Value Date Recorded Sex Assigned at Not on file Legal Sex Female 5:59 AM CAREER SERVICES MANAGER Gender Identity Not on file Sexual Orientation Not on file documented as of this encounter Plan of Treatment Not on file documented as of this encounter Visit Diagnoses Diagnosis Disorders of sacrum- Primary Thoracic or lumbosacral neuritis or radiculitis, unspecified documented in this encounter Care Teams Disease Education Specialist Relationship Specialty Start Date End Date Charles Delgadillo MD [address] [place] [address] PCP - General Family Practice 09/05/10 documented as of this encounter
--- OUTSIDE RECORDS SUMMARY | 2025-09-18 01:37 | XMS_ITS | Encounter Summary ---
Author Organization [facility] Address [address] [place] [address] Care Team Providers Care Belt Builder Name Role Phone Charles Delgadillo MD Primary Care Provider [phone] Encounter Details Date Type Department Care Team (Latest Contact Info) Description 04/08/2006 Outpatient [facility] Medicine [address] [phone] Lamar Pineda NP NO ADDRESS ON FILE Spasm of Muscle (Primary Dx); Unspecified Myalgia and Myositis; Unspecified Asthma; Other Sleep Disturbances Social History Tobacco Use Types Packs/Day Years Used Date Smoking Tobacco: Never Assessed Comments Unknown Sex and Gender Information Value Date Recorded Sex Assigned at Not on file Legal Sex Female 5:59 AM GROVE SUPERINTENDENT Gender Identity Not on file Sexual Orientation Not on file documented as of this encounter Plan of Treatment Not on file documented as of this encounter Visit Diagnoses Diagnosis Spasm of muscle- Primary Myalgia and myositis, unspecified Mylagia and myositis, unspecified Unspecified asthma(493.90) Unspecified asthma Other sleep disturbances documented in this encounter Care Teams Belt Builder Relationship Specialty Start Date End Date Charles Delgadillo MD [address] [place] [address] PCP - General Family Practice 09/05/10 documented as of this encounter
--- OUTSIDE RECORDS SUMMARY | 2025-09-18 01:37 | XMS_ITS | Encounter Summary ---
Author Organization [facility] Address [address] [place] [address] Care Team Providers Care Napping Machine Operator Name Role Phone Charles Delgadillo MD Primary Care Provider [phone] Encounter Details Date Type Department Care Team (Latest Contact Info) Description 06/13/2006 Outpatient Historical [facility] Medicine [address] [phone] Roz Capellan MD [address] [place] [phone] Unspecified Arthropathy, Site Unspecified (Primary Dx); Unspecified Endocrine Disorder; Other Dyspnea and Respiratory Abnormality; Encounter for Long-Term (Current) Use of Other Medications Social History Tobacco Use Types Packs/Day Years Used Date Smoking Tobacco: Never Assessed Comments Unknown Sex and Gender Information Value Date Recorded Sex Assigned at Not on file Legal Sex Female 5:59 AM WELDING MACHINE 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/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
--- OUTSIDE RECORDS SUMMARY | 2025-09-18 01:37 | XMS_ITS | Encounter Summary ---
Author Organization [facility] Address [address] [place] [address] Care Team Providers Care Salvage Laborer Name Role Phone Charles Delgadillo MD Primary Care Provider [phone] Encounter Details Date Type Department Care Team (Latest Contact Info) Description 05/28/2006 Outpatient Historical [facility] [address] [place] [phone] Melvin Caro Thoracic or Lumbosacral Neuritis or Radiculitis, Unspecified (Primary Dx) Social History Tobacco Use Types Packs/Day Years Used Date Smoking Tobacco: Never Assessed Comments Unknown Sex and Gender Information Value Date Recorded Sex Assigned at Not on file Legal Sex Female 5:59 AM MILL TENDER WARM UP Gender Identity Not on file Sexual Orientation Not on file documented as of this encounter Plan of Treatment Not on file documented as of this encounter Visit Diagnoses Diagnosis Thoracic or lumbosacral neuritis or radiculitis, unspecified- Primary documented in this encounter Care Teams Salvage Laborer Relationship Specialty Start Date End Date Charles Delgadillo MD [address] [place] [address] PCP - General Family Practice 09/05/10 documented as of this encounter
--- OUTSIDE RECORDS SUMMARY | 2025-09-18 01:37 | XMS_ITS | Encounter Summary ---
Author Organization [employer] [facility] Address [address] [place] [address] Care Team Providers Care Ip Attorney Name Role Phone Charles Delgadillo MD Primary Care Provider [phone] Encounter Details Date Type Department Care Team (Latest Contact Info) Description 06/19/2006 Outpatient Historical [facility] Procedures [address] 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
--- OUTSIDE RECORDS SUMMARY | 2025-09-18 01:37 | XMS_ITS | Encounter Summary ---
Author Organization [facility] Address [address] [place] [address] Care Team Providers Care Wallpaper Inspector And Shipper Name Role Phone Charles Delgadillo MD Primary Care Provider [phone] Encounter Details Date Type Department Care Team (Latest Contact Info) Description 10/16/2006 [facility]patient [facility] [address] [place] [address] Miller Bustos, DPM NO ADDRESS ON FILE Tenosynovitis of Foot and Ankle (Primary Dx); Dermatophytosis of Nail; Plantar Fibromatosis Social History Tobacco Use Types Packs/Day Years Used Date Smoking Tobacco: Never Assessed Comments Unknown Sex and Gender Information Value Date Recorded Sex Assigned at Not on file Legal Sex Female 5:59 AM CARD LACER JACQUARD Gender Identity Not on file Sexual Orientation Not on file documented as of this encounter Plan of Treatment Not on file documented as of this encounter Visit Diagnoses Diagnosis Tenosynovitis of foot and ankle- Primary Dermatophytosis of nail Plantar fibromatosis Plantar fascial fibromatosis documented in this encounter Care Teams Wallpaper Inspector And Shipper Relationship Specialty Start Date End Date Charles Delgadillo MD [address] [place] [address] PCP - General Family Practice 09/05/10 documented as of this encounter
--- OUTSIDE RECORDS SUMMARY | 2025-09-18 01:37 | XMS_ITS | Encounter Summary ---
Author Organization [facility] Address [address] [place] [address] Care Team Providers Care Hot Plate Plywood Press Feeder Name Role Phone Charles Delgadillo MD Primary Care Provider [phone] Encounter Details Date Type Department Care Team (Latest Contact Info) Description 12/06/2006 Outpatient Historical [facility] Nuclear Medicine[address] [address] Antonio Lopez MD [address] [place] [address] Asymptomatic Postmenopausal Status (Age-Related) (Natural) (Primary Dx) Social History Tobacco Use Types Packs/Day Years Used Date Smoking Tobacco: Never Assessed Comments Unknown Sex and Gender Information Value Date Recorded Sex Assigned at Not on file Legal Sex Female 5:59 AM IMAGING NURSE Gender Identity Not on file Sexual Orientation Not on file documented as of this encounter Plan of Treatment Not on file documented as of this encounter Visit Diagnoses Diagnosis Asymptomatic postmenopausal status (age-related) (natural)- Primary documented in this encounter Care Teams Hot Plate Plywood Press Feeder Relationship Specialty Start Date End Date Charles Delgadillo MD [address] [place] [address] PCP - General Family Practice 09/05/10 documented as of this encounter
--- OUTSIDE RECORDS SUMMARY | 2025-09-18 01:37 | XMS_ITS | Encounter Summary ---
Author Organization [facility] Address [address] [place] [address] Care Team Providers Care Rehabilitation Therapy Aide Name Role Phone Charles Delgadillo MD Primary Care Provider [phone] Encounter Details Date Type Department Care Team (Late st Contact Info) Description 11/20/2006 Outpatient [facility] [address] [place] [phone] Social History Tobacco Use Types Packs/Day Years Used Date Smoking Tobacco: Never Assessed Comments Unknown Sex and Gender Information Value Date Recorded Sex Assigned at Not on file Legal Sex Female 5:59 AM STOCKHOLDER Gender Identity Not on file Sexual Orientation Not on file documented as of this encounter Plan of Treatment Not on file documented as of this encounter Visit Diagnoses Not on filedocumented in this encounter Care Teams Rehabilitation Therapy Aide Relationship Specialty Start Date End Date Charles Delgadillo MD [address], [place] [address] PCP - General Family Practice 09/05/10 documented as of this encounter
--- OUTSIDE RECORDS SUMMARY | 2025-09-18 01:37 | XMS_ITS | Encounter Summary ---
Author Organization [facility] Address [address] [place] [address] Care Team Providers Care Gas Torch Solderer Name Role Phone Charles Delgadillo MD Primary Care Provider [phone] Encounter Details Date Type Department Care Team (Latest Contact Info) Description 11/22/2006 Outpatient Historical [facility] Pain Management Procedures [address] 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) Social History Tobacco Use Types Packs/Day Years Used Date Smoking Tobacco: Never Assessed Comments Unknown Sex and Gender Information Value Date Recorded Sex Assigned at Not on file Legal Sex Female 5:59 AM INTERIOR DECORATOR Gender Identity Not on file Sexual Orientation Not on file documented as of this encounter Plan of Treatment Not on file documented as of this encounter Visit Diagnoses Diagnosis Degeneration of lumbar or lumbosacral intervertebral disc- Primary documented in this encounter Care Teams Gas Torch Solderer Relationship Specialty Start Date End Date Charles Delgadillo MD [address] [place] [address] PCP - General Family Practice 09/05/10 documented as of this encounter
--- OUTSIDE RECORDS SUMMARY | 2025-09-18 01:37 | XMS_ITS | Encounter Summary ---
Author Organization [facility] Address [address] [place] [address] Care Team Providers Care Training Program Developer Name Role Phone Charles Delgadillo MD Primary Care Provider [phone] Encounter Details Date Type Department Care Team (Latest Contact Info) Description 10/30/2006 Outpatient [facility] [address] [phone] Melvin Caro Disorders of Sacrum (Primary Dx) Social History Tobacco Use Types Packs/Day Years Used Date Smoking Tobacco: Never Assessed Comments Unknown Sex and Gender Information Value Date Recorded Sex Assigned at Not on file Legal Sex Female 5:59 AM FOUNTAIN MANAGER Gender Identity Not on file Sexual Orientation Not on file documented as of this encounter Plan of Treatment Not on file documented as of this encounter Visit Diagnoses Diagnosis Disorders of sacrum- Primary documented in this encounter Care Teams Training Program Developer Relationship Specialty Start Date End Date Charles Delgadillo MD [address] [place] [address] PCP - General Family Practice 09/05/10 documented as of this encounter
--- OUTSIDE RECORDS SUMMARY | 2025-09-18 01:37 | XMS_ITS | Encounter Summary ---
Author Organization [facility] Address [address] [place] [address] Care Team Providers Care Diesel Mechanic Apprentice Name Role Phone Charles Delgadillo MD Primary Care Provider [phone] Encounter Details Date Type Department Care Team (Latest Contact Info) Description 11/01/2006 Outpatient Historical [facility] Pain Management Procedures [address] [place] [phone] Melvin Caro Disorders of Sacrum (Primary Dx) Social History Tobacco Use Types Packs/Day Years Used Date Smoking Tobacco: Never Assessed Comments Unknown Sex and Gender Information Value Date Recorded Sex Assigned at Not on file Legal Sex Female 5:59 AM FLOOR SCRUBBER Gender Identity Not on file Sexual Orientation Not on file documented as of this encounter Plan of Treatment Not on file documented as of this encounter Visit Diagnoses Diagnosis Disorders of sacrum- Primary documented in this encounter Care Teams Diesel Mechanic Apprentice Relationship Specialty Start Date End Date Charles Delgadillo MD [address] [place] [address] PCP - General Family Practice 09/05/10 documented as of this encounter
--- OUTSIDE RECORDS SUMMARY | 2025-09-18 01:37 | XMS_ITS | Encounter Summary ---
Author Organization [facility] Address [address] [place] [address] Care Team Providers Care Qa Software Test Engineer Name Role Phone Charles Delgadillo MD Primary Care Provider [phone] Encounter Details Date Type Department Care Team (Latest Contact Info) Description 12/31/2005 Outpatient [facility] Podiatry[facility] [address] [place] [address] Miller Bustos DPM NO ADDRESS ON FILE Metatarsus Varus (Primary Dx); Other Bursitis Disorders Social History Tobacco Use Types Packs/Day Years Used Date Smoking Tobacco: Never Assessed Comments Unknown Sex and Gender Information Value Date Recorded Sex Assigned at Not on file Legal Sex Female 5:59 AM HEALTH SERVICES MANAGER Gender Identity Not on file Sexual Orientation Not on file documented as of this encounter Plan of Treatment Not on file documented as of this encounter Visit Diagnoses Diagnosis Metatarsus varus- Primary Congenital metatarsus varus Other bursitis disorders documented in this encounter Care Teams Qa Software Test Engineer Relationship Specialty Start Date End Date Charles Delgadillo MD [address] [place] [address] PCP - General Family Practice 09/05/10 documented as of this encounter
--- OUTSIDE RECORDS SUMMARY | 2025-09-18 01:37 | XMS_ITS | Encounter Summary ---
Author Organization [facility] Address [address] [place] [address] Care Team Providers Care Envelope Stuffer Name Role Phone Charles Delgadillo MD Primary Care Provider [phone] Encounter Details Date Type Department Care Team (Latest Contact Info) Description 03/11/2006 Outpatient [facility] Medicine [place] [address] [phone] Lamar Pineda NP NO ADDRESS ON FILE Unspecified Sleep Apnea (Primary Dx); Unspecified Asthma; Unspecified Chronic Bronchitis (CMS/HCC) Social History Tobacco Use Types Packs/Day Years Used Date Smoking Tobacco: Never Assessed Comments Unknown Sex and Gender Information Value Date Recorded Sex Assigned at Not on file Legal Sex Female 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
--- OUTSIDE RECORDS SUMMARY | 2025-09-18 01:37 | XMS_ITS | Encounter Summary ---
Author Organization [facility] Address [address] [place] [address] Care Team Providers Care Interventional Radiologist Name Role Phone Charles Delgadillo MD Primary Care Provider [phone] Encounter Details Date Type Department Care Team (Latest Contact Info) Description 08/27/2006 Outpatient Historical [facility] [address] [place] [phone] Melvin Caro Disorders of Sacrum (Primary Dx); Thoracic or Lumbosacral Neuritis or Radiculitis, Unspecified Social History Tobacco Use Types Packs/Day Years Used Date Smoking Tobacco: Never Assessed Comments Unknown Sex and Gender Information Value Date Recorded Sex Assigned at Not on file 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
--- OUTSIDE RECORDS SUMMARY | 2025-09-18 01:37 | XMS_ITS | Encounter Summary ---
Author Organization [facility] Address [address] [place] [address] Care Team Providers Care Schedule Supervisor Name Role Phone Charles Delgadillo MD Primary Care Provider [phone] Encounter Details Date Type Department Care Team (Latest Contact Info) Description 12/14/2005 Outpatient [facility] Medicine [place] [address] [facility] [address] [place] [address] Thomas Anne MD [address] [address] Other and Unspecified Hyperlipidemia (Primary Dx); Peptic Ulcer, Site NOS; Unspecified Disorder of Kidney and Ureter Social History Tobacco Use Types Packs/Day Years Used Date Smoking Tobacco: Never Assessed Comments Unknown Sex and Gender Information Value Date Recorded Sex Assigned at Not on file Legal Sex 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 Gender Identity Not on file Sexual Orientation Not on file documented as of this encounter Plan of Treatment Not on file documented as of this encounter Visit Diagnoses Diagnosis Other and unspecified hyperlipidemia- Primary Peptic ulcer, unspecified site, unspecified as acute or chronic, without mention of hemorrhage, perforation, or obstruction Unspecified disorder of kidney and ureter documented in this encounter Care Teams Schedule Supervisor Relationship Specialty Start Date End Date Charles Delgadillo MD [address], [place] [address] PCP - General Family Practice 09/05/10 documented as of this encounter
--- OUTSIDE RECORDS SUMMARY | 2025-09-18 01:37 | XMS_ITS | Encounter Summary ---
Author Organization [employer] [facility] Address [address] [place] [address] Care Team Providers Care [place] Appeals Law Clerk Name Role Phone Charles Delgadillo MD Primary Care Provider [phone] Encounter Details Date Type Department Care Team (Latest Contact Info) Description 04/24/2006 Outpatient Historical [facility] [address] [facility], [address] [place] [address] Tristen Aragon MD [address] [place] [address] Lack of Coordination (Primary Dx) Social History Tobacco Use Types Packs/Day Years Used Date Smoking Tobacco: Never Assessed Comments Unknown Sex and Gender Information Value Date Recorded Sex Assigned at Not on file Legal Sex Female 5:59 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
--- OUTSIDE RECORDS SUMMARY | 2025-09-18 01:37 | XMS_ITS | Encounter Summary ---
Author Organization [facility] Address [address] [place] [address] Care Team Providers Care Box Sealing Machine Operator Name Role Phone Charles Delgadillo MD Primary Care Provider Encounter Details Date Type Department Care Team (Latest Contact Info) Description 09/18/2006 Outpatient [facility] Podiat[facility] [place] [address] [place] [address] Miller Bustos DPM NO ADDRESS ON FILE Plantar Fibromatosis (Primary Dx); Achilles Bursitis or Tendinitis; Difficulty in Walking Social History Tobacco Use Types Packs/Day Years Used Date Smoking Tobacco: Never Assessed Comments Unknown Sex and Gender Information Value Date Recorded Sex Assigned at Not on file 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
--- OUTSIDE RECORDS SUMMARY | 2025-09-18 01:37 | XMS_ITS | Encounter Summary ---
Author Organization [facility] Address [address] [place] [address] Care Team Providers Care Residential Appliance Repair Technician Name Role Phone Chrales Delgadillo MD Primary Care Provider [phone] Encounter Details Date Type Department Care Team (Latest Contact Info) Description 11/09/2005 Outpatient [facility] Medicine [place] [address] [facility] [address] [place] [address] Thomas Anne MD [address] [address] MONONEURITIS NOS (Primary Dx); HYPOTHYROIDISM NOS; SWELLING IN HEAD & NECK Social History Tobacco Use Types Packs/Day Years Used Date Smoking Tobacco: Never Assessed Comments Unknown Sex and Gender Information Value Date Recorded Sex Assigned at Not on file Legal Sex Female 5:59 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
--- OUTSIDE RECORDS SUMMARY | 2025-09-18 01:38 | XMS_ITS | Encounter Summary ---
Author Organization [email or web address] Address [address] [place] [address] Care Team Providers Care Hogshead Press Operator Name Role Phone Charles Delgadillo MD Primary Care Provider [phone] Reason for Referral * Outpatient Services (Routine) - Closed Specialty Diagnoses / Procedures Referred By Tisha troncoso Referred To Contact Diagnoses Encounter for screening mammogram for breast cancer Procedures MAMMO DIGITAL SCREEN BILAT [employer] Shanika Zavala FNP [address] [place] [id number] Phone: tel: fax: Referral ID Status Reason Start Date Expiration Date Visits Re quested Visits Authorized [id number] Closed 08/01/2015 08/31/2016 1 1 KO KURA KAUPAPA MAORI Encounter Details Date Type Department Care Team (Latest Contact Info) Description 08/01/2015 Ancillary Orders [facility] [place] [address] [address] Shanika Zavala FNP [address] [place] [id number] Encounter for screening mammogram for breast cancer (Primary Dx) Social History Tobacco Use Types Packs/Day Years Used Date Smoking Tobacco: Never Smokeless Tobacco: Never Alcohol Use Standard Drinks/Week Comments No 0 (1 standard drink = 0.6 oz pur e alcohol) Comments No Sex and Gender Information Value Date Recorded Sex Assigned at Not on file Legal Sex Female 5:59 AM KAIAKO KURA KAUPAPA MAORI Gender Identity Not on file Sexual Orientation Not on file 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 Shanika Zavala ELECTRICAL SUPERVISOR MAMMO ORDERABLES Final Result documented in this encounter Visit Diagnoses Diagnosis Encounter for screening mammogram for breast cancer- Primary Encounter for screening mammogram for breast cancer documented in this encounter Care Teams Hogshead Press Operator Relationship Specialty Start Date End Date Charles Delgadillo MD [address] [place] [address] PCP - General Family Practice 09/05/10 documented as of this encounter
--- OUTSIDE RECORDS SUMMARY | 2025-09-18 01:38 | XMS_ITS | Encounter Summary ---
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) Social History Tobacco Use Types Packs/Day Years Used Date Smoking Tobacco: Never Assessed Comments Unknown Sex and Gender Information Value Date Recorded Sex Assigned at Not on file Legal Sex Female 5:59 AM [employer] Gender Identity Not on file Sexual Orientation Not on file documented as of this encounter Plan of Treatment Not on file documented as of this encounter Procedures Procedure Name Priority Date/Time Associated Diagnosis Comments POC GLUCOSE Routine 12/30/2006 6:44 AM CDT CBC WITH DIFFERENTIAL Routine 12/30/2006 6:08 AM CDT PROTIME-INR Routine 12/30/2006 6:08 AM CDT POC GLUCOSE Routine 12/29/2006 9:16 PM CDT POC GLUCOSE Routine 12/29/2006 6:24 PM CDT POC GLUCOSE Routine 12/29/2006 10:58 AM CDT POC GLUCOSE Routine 12/29/2006 5:12 AM CDT CBC WITH DIFFERENTIAL Routine 12/29/2006 4:03 AM CDT PROTIME-INR Routine 12/29/2006 4:03 AM CDT POC GLUCOSE Routine 12/28/2006 9:39 PM CDT POC GLUCOSE Routine 12/28/2006 4:16 PM CDT POC GLUCOSE Routine 12/28/2006 10:37 AM CDT CBC WITH DIFFERENTIAL Routine 12/28/2006 6:33 AM CDT PTT Routine 12/28/2006 6:33 AM CDT PROTIME-INR Routine 12/28/2006 6:33 AM CDT POC GLUCOSE Routine 12/28/2006 5:05 AM CDT POC GLUCOSE Routine 12/27/2006 9:43 PM CDT POC GLUCOSE Routine 12/27/2006 5:08 PM CDT POC GLUCOSE Routine 12/27/2006 11:12 AM CDT CBC WITH DIFFERENTIAL Routine 12/27/2006 6:34 AM CDT PROTIME-INR Routine 12/27/2006 6:34 AM CDT BASIC METABOLIC PANEL Routine 12/27/2006 6:34 AM CDT POC GLUCOSE Routine 12/27/2006 5:30 AM CDT POC GLUCOSE Routine 12/26/2006 10:21 PM CDT POC GLUCOSE Routine 12/26/2006 5:09 PM CDT POC GLUCOSE Routine 12/26/2006 11:51 AM CDT POC GLUCOSE Routine 12/26/2006 5:22 AM CDT CBC WITH DIFFERENTIAL Routine 12/26/2006 5:12 AM CDT PROTIME-INR Routine 12/26/2006 5:12 AM CDT BASIC METABOLIC PANEL Routine 12/26/2006 5:12 AM CDT POC GLUCOSE Routine 12/25/2006 9:21 PM CDT POC GLUCOSE Routine 12/25/2006 6:17 PM CDT POC GLUCOSE Routine 12/25/2006 11:32 AM CDT PTT Routine 12/25/2006 9:18 AM CDT POC GLUCOSE Routine 12/25/2006 5:40 AM CDT PTT Routine 12/25/2006 2:53 AM CDT CBC WITHOUT DIFFERENTIAL Routine 12/25/2006 2:53 AM CDT POC GLUCOSE Routine 12/24/2006 9:51 PM CDT PROTIME-INR Routine 12/24/2006 7:30 PM CDT POC GLUCOSE Routine 12/24/2006 5:55 PM CDT POC GLUCOSE Routine 12/24/2006 11:30 AM CDT POC GLUCOSE Routine 12/24/2006 6:06 AM CDT CBC WITHOUT DIFFERENTIAL Routine 12/24/2006 5:00 AM CDT BASIC METABOLIC PANEL Routine 12/24/2006 5:00 AM CDT POC GLUCOSE Routine 12/23/2006 8:50 PM CDT POC GLUCOSE Routine 12/23/2006 5:22 PM CDT POC GLUCOSE Routine 12/23/2006 11:52 AM CDT HEMOGLOBIN AND HEMATOCRIT Routine 12/23/2006 10:31 AM CDT documented in this encounter Results * (ABNORMAL) POC GLUCOSE (12/30/2006 6:44 AM CDT) GLUCOSE POC 117(H) 60 - 100 mg/dL INTERFACE SYSTEM 12/30/2006 6:44 AM CDT Antonio Lopez MD POINT OF CARE TESTING Edited INTERFACE SYSTEM Refer to clinic/hospital department * (ABNORMAL) PROTIME-INR (12/30/2006 6:08 AM CDT) PROTIME 24.9(H) 13.0 - 15.7 Secs INTERFACE SYSTEM Comment: As of 06 note change in normal range. INR 2.1 INTERFACE SYSTEM Comment: Expected Values for INR: [...] Anticoagulation available from the pharmacy Johanny Frank. 12/30/2006 6:08 AM CDT Antonio Lopez MD HEMATOLOGY ORDERABLES Edited INTERFACE SYSTEM Refer to clinic/hospital department * (ABNORMAL) CBC WITH DIFFERENTIAL (12/30/2006 6:08 AM CDT) WBC 9.4 4.8 - 10.8 K/ul INTERFACE SYSTEM RBC 3.65(L) 4.20 - 5.40 Mil/ul INTERFACE SYSTEM HEMOGLOBIN 10.7(L) 12.0 - 16.0 g/dL INTERFACE SYSTEM HEMATOCRIT 32.3(L) 36.0 - 46.0 % INTERFACE SYSTEM MCV 88.5 84.0 - 103.0 Fl INTERFACE SYSTEM MCH 29.3 27.0 - 34.0 pg INTERFACE SYSTEM MCHC 33.1 30.0 - 35.0 g/dL INTERFACE SYSTEM RDW 14.4 11.0 - 14.5 % INTERFACE SYSTEM PLATELETS 289 140 - 440 K/ul INTERFACE SYSTEM MPV 8.7(L) 8.9 - 12.8 Fl INTERFACE SYSTEM NEUTROPHILS 59.4 42.2 - 75.2 % INTERFACE SYSTEM LYMPHOCYTES 25.7 24.0 - 44.0 % INTERFACE SYSTEM MONOCYTES 11.4(H) 2.0 - 10.0 % INTERFA CE SYSTEM EOSINOPHILS 3.0 0.0 - 7.0 % INTERF KRAIG SYSTEM BASOPHILS 0.5 0.0 - 1.0 % INTERFAC E SYSTEM NEUTROPHIL ABSOLUTE 5.6 2.0 - 8.0 K/ul INTERFACE SYSTEM LYMPHOCYTE ABSOLUTE 2.4 1.2 - 4.0 K/ul INTERFACE SYSTEM MONOCYTE ABSOLUTE 1.1(H) 0.1 - 0.6 K/ul INTERFACE SYSTEM EOSINOPHIL ABSOLUTE 0.3 0.0 - 0.7 K/ul INTERFACE SYSTEM BASOPHILS ABSOLUTE 0.1 0.0 - 0.2 K/ul INTERFACE SYSTEM PERIPHERAL BLOOD SMEAR REVIEW Smear Reviewed Automated Diff INTERFACE SYSTEM 12/30/2006 6:08 AM CDT Antonio Lopez MD HEMATOLOGY ORDERABLES Edited INTERFACE SYSTEM Refer to clinic/hospital department * (ABNORMAL) POC GLUCOSE (12/29/2006 9:16 PM CDT) GLUCOSE POC 130(H) 60 - 100 mg/dL INTERFACE SYSTEM 12/29/2006 9:16 PM CDT us Antonio Lopez MD POINT OF CARE TESTING Edited Performing Organization Address City/[facility] Co de Phone Number INTERFACE SYSTEM Refer to clinic/hospital department * (ABNORMAL) POC GLUCOSE (12/29/2006 6:24 PM CDT) GLUCOSE POC 151(H) 60 - 100 mg/dL INTERFACE SYSTEM 12/29/2006 6:24 PM CDT Antonio Lopez MD POINT OF CARE TESTING Edited Performing Organization Address [facility] de Phone Number INTERFACE SYSTEM Refer to clinic/hospital department * POC GLUCOSE (12/29/2006 10:58 AM CDT) GLUCOSE POC 95 60 - 100 mg/dL INTERFACE SYSTEM 12/29/2006 10:5 8 AM CDT us Antonio Lopez MD POINT OF CARE TESTING Edited Performing Organization Address [facility] de Phone Number INTERFACE SYSTEM Refer to clinic/hospital department * (ABNORMAL) POC GLUCOSE (12/29/2006 5:12 AM CDT) GLUCOSE POC 119(H) 60 - 100 mg/dL INTERFACE SYSTEM 12/29/2006 5:12 AM CDT us Antonio Lopez MD POINT OF CARE TESTING Edited Performing Organization Address City/[facility] Co de Phone Number INTERFACE SYSTEM Refer to clinic/hospital department * (ABNORMAL) PROTIME-INR (12/29/2006 4:03 AM CDT) PROTIME 22.7(H) 13.0 - 15.7 Secs INTERFACE SYSTEM Comment: As of 06 note change in normal range. INR 1.8 INTERFACE SYSTEM Comment: Expected Values for INR: [...] Guidelines for Anticoagulation available from the pharmacy Jhoanny Frank 12/29/2006 4:03 AM CDT us Antonio Lopez MD HEMATOLOGY ORDERABLES Edited INTERFACE SYSTEM Refer to clinic/hospital department * (ABNORMAL) CBC WITH DIFFERENTIAL (12/29/2006 4:03 AM CDT) WBC 8.7 4.8 - 10.8 K/ul INTERFACE SYSTEM RBC 4.00(L) 4.20 - 5.40 Mil/ul INTERFACE SYSTEM HEMOGLOBIN 11.9(L) 12.0 - 16.0 g/dL INTERFACE SYSTEM HEMATOCRIT 34.7(L) 36.0 - 46.0 % INTERFACE SYSTEM MCV 86.8 84.0 - 103.0 Fl INTERFACE SYSTEM MCH 29.8 27.0 - 34.0 pg INTERFACE SYSTEM MCHC 34.3 30.0 - 35.0 g/dL INTERFACE SYSTEM RDW 14.2 11.0 - 14.5 % INTERFACE SYSTEM PLATELETS 232 140 - 440 K/ul INTERFACE SYSTEM MPV 9.6 8.9 - 12.8 Fl INTERFACE SYSTEM NEUTROPHILS 64.6 42.2 - 75.2 % INTERFACE SYSTEM LYMPHOCYTES 21.5(L) 24.0 - 44.0 % INTERFACE SYSTEM MONOCYTES 9.5 2.0 - 10.0 % INTERFA CE SYSTEM EOSINOPHILS 1.9 0.0 - 7.0 % INTERF KRAIG SYSTEM BASOPHILS 2.5(H) 0.0 - 1.0 % INTERFAC E SYSTEM NEUTROPHIL ABSOLUTE 5.6 2.0 - 8.0 K/ul INTERFACE SYSTEM LYMPHOCYTE ABSOLUTE 1.9 1.2 - 4.0 K/ul INTERFACE SYSTEM MONOCYTE ABSOLUTE 0.8(H) 0.1 - 0.6 K/ul INTERFACE SYSTEM EOSINOPHIL ABSOLUTE 0.2 0.0 - 0.7 K/ul INTERFACE SYSTEM BASOPHILS ABSOLUTE 0.2 0.0 - 0.2 K/ul INTERFACE SYSTEM PERIPHERAL BLOOD SMEAR REVIEW Automated Diff Automated Diff INTERFACE SYSTEM 12/29/2006 4:03 AM CDT Antonio Lopez MD HEMATOLOGY ORDERABLES Edited Performing Organization Address City/[facility] de Phone Number INTERFACE SYSTEM Refer to clinic/hospital department * (ABNORMAL) POC GLUCOSE (12/28/2006 9:39 PM CDT) GLUCOSE POC 151(H) 60 - 100 mg/dL INTERFACE SYSTEM 12/28/2006 9:39 PM CDT Antonio Lopez MD POINT OF CARE TESTING Edited Performing Organization Address [facility] de Phone Number INTERFACE SYSTEM Refer to clinic/hospital department * (ABNORMAL) POC GLUCOSE (12/28/2006 4:16 PM CDT) GLUCOSE POC 109(H) 60 - 100 mg/dL INTERFACE SYSTEM 12/28/2006 4:16 PM CDT us Antonio Lopez MD POINT OF CARE TESTING Edited Performing Organization Address [facility] de Phone Number INTERFACE SYSTEM Refer to clinic/hospital department * (ABNORMAL) POC GLUCOSE (12/28/2006 10:37 AM CDT) GLUCOSE POC 156(H) 60 - 100 mg/dL INTERFACE SYSTEM 12/28/2006 10:3 7 AM CDT us Antonio Lopez MD POINT OF CARE TESTING Edited Performing Organization Address City/[facility] de Phone Number INTERFACE SYSTEM Refer to clinic/hospital department * PTT (12/28/2006 6:33 AM CDT) PTT 34.4 21.6 - 35.6 Secs INTERFACE SYSTEM Comment: Therapeutic Range: Hi-level PE/DVT heparin protocol 80.1 -95.0 sec Lo-level PE/DVT heparin protocol 67.1 - 80.0 sec Cardiac Heparin Protocol 67.1 - 85.0 sec Neuro Heparin Protocol 67.1 - 80.0 sec As of 08/29/2006 note change in APTT Normal Range. 12/28/2006 6:33 AM CDT Antonio Lopez MD HEMATOLOGY ORDERABLES Edited Performing Organization Address City/State[facility] Co de Phone Number INTERFACE SYSTEM Refer to clinic/hospital department * PROTIME-INR (12/28/2006 6:33 AM CDT) PROTIME 14.9 13.0 - 15.7 Secs INTERFACE SYSTEM Comment: As of 06 note change in normal range. INR 1.0 INTERFACE SYSTEM Comment: Expected Values for INR: [...] from the pharmacy Faustina Tellez Pharm D. 12/28/2006 6:33 AM CDT Antonio Lopez MD HEMATOLOGY ORDERABLES Edited INTERFACE SYSTEM Refer to clinic/hospital department * (ABNORMAL) CBC WITH DIFFERENTIAL (12/28/2006 6:33 AM CDT) WBC 11.7(H) 4.8 - 10.8 K/ul INTERFACE SYSTEM RBC 3.71(L) 4.20 - 5.40 Mil/ul INTERFACE SYSTEM HEMOGLOBIN 10.9(L) 12.0 - 16.0 g/dL INTERFACE SYSTEM HEMATOCRIT 32.7(L) 36.0 - 46.0 % INTERFACE SYSTEM MCV 88.1 84.0 - 103.0 Fl INTERFACE SYSTEM MCH 29.4 27.0 - 34.0 pg INTERFACE SYSTEM MCHC 33.3 30.0 - 35.0 g/dL INTERFACE SYSTEM RDW 14.4 11.0 - 14.5 % INTERFACE SYSTEM PLATELETS 244 140 - 440 K/ul INTERFACE SYSTEM MPV 8.9 8.9 - 12.8 Fl INTERFACE SYSTEM NEUTROPHILS 67.6 42.2 - 75.2 % INTERFACE SYSTEM LYMPHOCYTES 21.7(L) 24.0 - 44.0 % INTERFACE SYSTEM MONOCYTES 8.4 2.0 - 10.0 % INTERFACE SYSTEM EOSINOPHILS 2.0 0.0 - 7.0 % INTERFACE SYSTEM BASOPHILS 0.3 0.0 - 1.0 % INTERFACE SYSTEM NEUTROPHIL ABSOLUTE 7.9 2.0 - 8.0 K/ul INTERFACE SYSTEM LYMPHOCYTE ABSOLUTE 2.5 1.2 - 4.0 K/ul INTERFACE SYSTEM MONOCYTE ABSOLUTE 1.0(H) 0.1 - 0.6 K/ul INTERFACE SYSTEM EOSINOPHIL ABSOLUTE 0.2 0.0 - 0.7 K/ul INTERFACE SYSTEM BASOPHILS ABSOLUTE 0.0 0.0 - 0.2 K/ul INTERFACE SYSTEM 12/28/2006 6:33 AM CDT Antonio Lopez MD HEMATOLOGY ORDERABLES Edited INTERFACE SYSTEM Refer to clinic/hospital department * (ABNORMAL) POC GLUCOSE (12/28/2006 5:05 AM CDT) GLUCOSE POC 103(H) 60 - 100 mg/dL INTERFACE SYSTEM 12/28/2006 5:05 AM CDT us Antonio Lopez MD POINT OF CARE TESTING Edited INTERFACE SYSTEM Refer to clinic/hospital department * (ABNORMAL) POC GLUCOSE (12/27/2006 9:43 PM CDT) GLUCOSE POC 121(H) 60 - 100 mg/dL INTERFACE SYSTEM 12/27/2006 9:43 PM CDT us Antonio Lopez MD POINT OF CARE TESTING Edited Performing Organization Address [facility] de Phone Number INTERFACE SYSTEM Refer to clinic/hospital department * (ABNORMAL) POC GLUCOSE (12/27/2006 5:08 PM CDT) GLUCOSE POC 111(H) 60 - 100 mg/dL INTERFACE SYSTEM 12/27/2006 5:08 PM CDT us Antonio Lopez MD POINT OF CARE TESTING Edited Performing Organization Address [facility] de Phone Number INTERFACE SYSTEM Refer to clinic/hospital department * (ABNORMAL) POC GLUCOSE (12/27/2006 11:12 AM CDT) GLUCOSE POC 118(H) 60 - 100 mg/dL INTERFACE SYSTEM COMMENT POC Follow Protocol INTERFACE SYSTEM 12/27/2006 11:1 2 AM CDT us Antonio Lopez MD POINT OF CARE TESTING Edited Performing Organization Address [facility] Phone Number INTERFACE SYSTEM Refer to clinic/hospital department * PROTIME-INR (12/27/2006 6:34 AM CDT) PROTIME 13.7 13.0 - 15.7 Secs INTERFACE SYSTEM Comment: As of 06 note change in normal range. INR 0.9 INTERFACE SYSTEM Comment: Expected Values for INR: [...] Anticoagulation available from the pharmacy Johanny Frank 12/27/2006 6:34 AM CDT Antonio Lopez MD HEMATOLOGY ORDERABLES Edited Performing Organization Address [facility] de Phone Number INTERFACE SYSTEM Refer to clinic/hospital department * BASIC METABOLIC PANEL (12/27/2006 6:34 AM CDT) GLUCOSE 87 70 - 110 mg/dL INTERFACE SYSTEM BUN 14 7 - 17 mg/dL INTERFACE SYSTEM CREATININE 0.9 0.7 - 1.2 mg/dL INTERFACE SYSTEM SODIUM 136 136 - 145 mEq/L INTERFACE SYSTEM POTASSIUM 3.8 3.5 - 5.0 mEq/L INTERFACE SYSTEM CHLORIDE 104 95 - 110 mEq/L INTERFACE SYSTEM CO2 27 22 - 32 mmol/l INTERFACE SYSTEM CALCIUM 9.4 8.4 - 10.5 mg/dL INTERFACE SYSTEM ANION GAP 9 9 - 20 mEq/L INTERFACE SYSTEM OSMOLALITY, CALCULATED 280 275 - 295 mOsm/Kg INTERFACE SYSTEM 12/27/2006 6:34 AM CDT Antonio Lopez MD CHEMISTRY ORDERABLES Edited Performing Organization Address [facility] Phone Number INTERFACE SYSTEM Refer to clinic/hospital department * (ABNORMAL) CBC WITH DIFFERENTIAL (12/27/2006 6:34 AM CDT) WBC 11.5(H) 4.8 - 10.8 K/ul INTERFACE SYSTEM RBC 3.53(L) 4.20 - 5.40 Mil/ul INTERFACE SYSTEM HEMOGLOBIN 10.3(L) 12.0 - 16.0 g/dL INTERFACE SYSTEM HEMATOCRIT 30.8(L) 36.0 - 46.0 % INTERFACE SYSTEM MCV 87.3 84.0 - 103.0 Fl INTERFACE SYSTEM MCH 29.2 27.0 - 34.0 pg INTERFACE SYSTEM MCHC 33.4 30.0 - 35.0 g/dL INTERFACE SYSTEM RDW 14.7(H) 11.0 - 14.5 % INTERFACE SYSTEM PLATELETS 190 140 - 440 K/ul INTERFACE SYSTEM MPV 9.3 8.9 - 12.8 Fl INTERFACE SYSTEM NEUTROPHILS 70.1 42.2 - 75.2 % INTERFACE SYSTEM LYMPHOCYTES 18.5(L) 24.0 - 44.0 % INTERFACE SYSTEM MONOCYTES 8.7 2.0 - 10.0 % INTERFACE SYSTEM EOSINOPHILS 2.4 0.0 - 7.0 % INTERFACE SYSTEM BASOPHILS 0.3 0.0 - 1.0 % INTERFACE SYSTEM NEUTROPHIL ABSOLUTE 8.1(H) 2.0 - 8.0 K/ul INTERFACE SYSTEM LYMPHOCYTE ABSOLUTE 2.1 1.2 - 4.0 K/ul INTERFACE SYSTEM MONOCYTE ABSOLUTE 1.0(H) 0.1 - 0.6 K/ul INTERFACE SYSTEM EOSINOPHIL ABSOLUTE 0.3 0.0 - 0.7 K/ul INTERFACE SYSTEM BASOPHILS ABSOLUTE 0.0 0.0 - 0.2 K/ul INTERFACE SYSTEM 12/27/2006 6:34 AM CDT us Antonio Lopez MD HEMATOLOGY ORDERABLES Edited INTERFACE SYSTEM Refer to clinic/hospital department * POC GLUCOSE (12/27/2006 5:30 AM CDT) GLUCOSE POC 90 60 - 100 mg/dL INTERFACE SYSTEM 12/27/2006 5:30 AM CDT us Antonio Lopez MD POINT OF CARE TESTING Edited INTERFACE SYSTEM Refer to clinic/hospital department * (ABNORMAL) POC GLUCOSE (12/26/2006 10:21 PM CDT) GLUCOSE POC 126(H) 60 - 100 mg/dL INTERFACE SYSTEM 12/26/2006 10:2 1 PM CDT us Antonio Lopez MD POINT OF CARE TESTING Edited INTERFACE SYSTEM Refer to clinic/hospital department * POC GLUCOSE (12/26/2006 5:09 PM CDT) GLUCOSE POC 93 60 - 100 mg/dL INTERFACE SYSTEM 12/26/2006 5:09 PM CDT us Antonio Lopez MD POINT OF CARE TESTING Edited Performing Organization Address [facility] de Phone Number INTERFACE SYSTEM Refer to clinic/hospital department * (ABNORMAL) POC GLUCOSE (12/26/2006 11:51 AM CDT) GLUCOSE POC 118(H) 60 - 100 mg/dL INTERFACE SYSTEM 12/26/2006 11:5 1 AM CDT Antonio Lopez MD POINT OF CARE TESTING Edited Performing Organization Address [facility] de Phone Number INTERFACE SYSTEM Refer to clinic/hospital department * (ABNORMAL) POC GLUCOSE (12/26/2006 5:22 AM CDT) GLUCOSE POC 114(H) 60 - 100 mg/dL INTERFACE SYSTEM 12/26/2006 5:22 AM CDT us Antonio Lopez MD POINT OF CARE TESTING Edited Performing Organization Address [facility] de Phone Number INTERFACE SYSTEM Refer to clinic/hospital department * PROTIME-INR (12/26/2006 5:12 AM CDT) PROTIME 15.4 13.0 - 15.7 Secs INTERFACE SYSTEM Comment: As of 06 note change in normal range. INR 1.1 INTERFACE SYSTEM Comment: Expected Values for INR: [...] Anticoagulation available from the pharmacy Johanny Frank 12/26/2006 5:12 AM CDT Antonio Lopez MD HEMATOLOGY ORDERABLES Edited Performing Organization Address [facility] de Phone Number INTERFACE SYSTEM Refer to clinic/hospital department * (ABNORMAL) BASIC METABOLIC PANEL (12/26/2006 5:12 AM CDT) GLUCOSE 105 70 - 110 mg/dL INTERFACE SYSTEM BUN 15 7 - 17 mg/dL INTERFACE SYSTEM CREATININE 1.1 0.7 - 1.2 mg/dL INTERFACE SYSTEM SODIUM 135(L) 136 - 145 mEq/L INTERFACE SYSTEM POTASSIUM 4.0 3.5 - 5.0 mEq/L INTERFACE SYSTEM CHLORIDE 105 95 - 110 mEq/L INTERFACE SYSTEM CO2 27 22 - 32 mmol/l INTERFACE SYSTEM CALCIUM 8.7 8.4 - 10.5 mg/dL INTERFACE SYSTEM ANION GAP 7(L) 9 - 20 mEq/L INTERFACE SYSTEM OSMOLALITY, CALCULATED 280 275 - 295 mOsm/Kg INTERFACE SYSTEM 12/26/2006 5:12 AM CDT Antonio Lopez MD CHEMISTRY ORDERABLES Edited Performing Organization Address [facility] Phone Number INTERFACE SYSTEM Refer to clinic/hospital department * (ABNORMAL) CBC WITH DIFFERENTIAL (12/26/2006 5:12 AM CDT) WBC 12.7(H) 4.8 - 10.8 K/ul INTERFACE SYSTEM RBC 2.38(L) 4.20 - 5.40 Mil/ul INTERFACE SYSTEM HEMOGLOBIN 7.1(L) 12.0 - 16.0 g/dL INTERFACE SYSTEM HEMATOCRIT 21.3(L) 36.0 - 46.0 % INTERFACE SYSTEM MCV 89.5 84.0 - 103.0 Fl INTERFACE SYSTEM MCH 29.8 27.0 - 34.0 pg INTERFACE SYSTEM MCHC 33.3 30.0 - 35.0 g/dL INTERFACE SYSTEM RDW 14.2 11.0 - 14.5 % INTERFACE SYSTEM PLATELETS 166 140 - 440 K/ul INTERFACE SYSTEM MPV 8.7(L) 8.9 - 12.8 Fl INTERFACE SYSTEM NEUTROPHILS 76.3(H) 42.2 - 75.2 % INTERFACE SYSTEM LYMPHOCYTES 16.5(L) 24.0 - 44.0 % INTERFACE SYSTEM MONOCYTES 6.2 2.0 - 10.0 % INTERFA CE SYSTEM EOSINOPHILS 0.9 0.0 - 7.0 % INTERF KRAIG SYSTEM BASOPHILS 0.1 0.0 - 1.0 % INTERFAC E SYSTEM NEUTROPHIL ABSOLUTE 9.7(H) 2.0 - 8.0 K/ul INTERFACE SYSTEM LYMPHOCYTE ABSOLUTE 2.1 1.2 - 4.0 K/ul INTERFACE SYSTEM MONOCYTE ABSOLUTE 0.8(H) 0.1 - 0.6 K/ul INTERFACE SYSTEM EOSINOPHIL ABSOLUTE 0.1 0.0 - 0.7 K/ul INTERFACE SYSTEM BASOPHILS ABSOLUTE 0.0 0.0 - 0.2 K/ul INTERFACE SYSTEM PERIPHERAL BLOOD SMEAR REVIEW Automated Diff Automated Diff INTERFACE SYSTEM 12/26/2006 5:12 AM CDT Antonio Lopez MD HEMATOLOGY ORDERABLES Edited Performing Organization Address City/[facility] de Phone Number INTERFACE SYSTEM Refer to clinic/hospital department * (ABNORMAL) POC GLUCOSE (12/25/2006 9:21 PM CDT) GLUCOSE POC 139(H) 60 - 100 mg/dL INTERFACE SYSTEM 12/25/2006 9:21 PM CDT Antonio Lopez MD POINT OF CARE TESTING Edited Performing Organization Address City/[facility] de Phone Number INTERFACE SYSTEM Refer to clinic/hospital department * (ABNORMAL) POC GLUCOSE (12/25/2006 6:17 PM CDT) GLUCOSE POC 129(H) 60 - 100 mg/dL INTERFACE SYSTEM 12/25/2006 6:17 PM CDT us Antonio Lopez MD POINT OF CARE TESTING Edited Performing Organization Address City/[facility] Co de Phone Number INTERFACE SYSTEM Refer to clinic/hospital department * (ABNORMAL) POC GLUCOSE (12/25/2006 11:32 AM CDT) GLUCOSE POC 123(H) 60 - 100 mg/dL INTERFACE SYSTEM 12/25/2006 11:3 2 AM CDT us Antonio Lopez MD POINT OF CARE TESTING Edited Performing Organization Address [facility] Phone Number INTERFACE SYSTEM Refer to clinic/hospital department * (ABNORMAL) PTT (12/25/2006 9:18 AM CDT) PTT 70.5(H) 21.6 - 35.6 Secs INTERFACE SYSTEM Comment: Therapeutic Range: Hi-level PE/DVT heparin protocol 80.1 -95.0 sec Lo-level PE/DVT heparin protocol 67.1 - 80.0 sec Cardiac Heparin Protocol 67.1 - 85.0 sec Neuro Heparin Protocol 67.1 - 80.0 sec As of 08/29/2006 note change in APTT Normal Range. 12/25/2006 9:18 AM CDT Antonio Lopez MD HEMATOLOGY ORDERABLES Edited Performing Organization Address [facility] Phone Number INTERFACE SYSTEM Refer to clinic/hospital department * (ABNORMAL) POC GLUCOSE (12/25/2006 5:40 AM CDT) GLUCOSE POC 137(H) 60 - 100 mg/dL INTERFACE SYSTEM 12/25/2006 5:40 AM CDT us Antonio Lopez MD POINT OF CARE TESTING Edited Performing Organization Address [facility] Phone Number INTERFACE SYSTEM Refer to clinic/hospital department * (ABNORMAL) CBC WITHOUT DIFFERENTIAL (12/25/2006 2:53 AM CDT) WBC 16.6(H) 4.8 - 10.8 K/ul INTERFACE SYSTEM RBC 2.74(L) 4.20 - 5.40 Mil/ul INTERFACE SYSTEM HEMOGLOBIN 8.2(L) 12.0 - 16.0 g/dL INTERFACE SYSTEM HEMATOCRIT 24.3(L) 36.0 - 46.0 % INTERFACE SYSTEM MCV 88.7 84.0 - 103.0 Fl INTERFACE SYSTEM MCH 29.9 27.0 - 34.0 pg INTERFACE SYSTEM MCHC 33.7 30.0 - 35.0 g/dL INTERFACE SYSTEM RDW 14.2 11.0 - 14.5 % INTERFACE SYSTEM PLATELETS 162 140 - 440 K/ul INTERFACE SYSTEM MPV 8.9 8.9 - 12.8 Fl INTERFACE SYSTEM NEUTROPHILS 81.2(H) 42.2 - 75.2 % INTERFACE SYSTEM LYMPHOCYTES 13.0(L) 24.0 - 44.0 % INTERFACE SYSTEM MONOCYTES 5.5 2.0 - 10.0 % INTERFA CE SYSTEM EOSINOPHILS 0.2 0.0 - 7.0 % INTERF KRAIG SYSTEM BASOPHILS 0.1 0.0 - 1.0 % INTERFAC E SYSTEM NEUTROPHIL ABSOLUTE 13.5(H) 2.0 - 8.0 K/ul INTERFACE SYSTEM LYMPHOCYTE ABSOLUTE 2.2 1.2 - 4.0 K/ul INTERFACE SYSTEM MONOCYTE ABSOLUTE 0.9(H) 0.1 - 0.6 K/ul INTERFACE SYSTEM EOSINOPHIL ABSOLUTE 0.0 0.0 - 0.7 K/ul INTERFACE SYSTEM BASOPHILS ABSOLUTE 0.0 0.0 - 0.2 K/ul INTERFACE SYSTEM HEM COMMENT Automated Diff Automated Diff INTERFACE SYSTEM 12/25/2006 2:53 AM CDT Antonio Lopez MD HEMATOLOGY ORDERABLES Edited Performing Organization Address City/[facility] Co de Phone Number INTERFACE SYSTEM Refer to clinic/hospital department * (ABNORMAL) PTT (12/25/2006 2:53 AM CDT) [facility] PTT 93.2(H) 21.6 - 35.6 Secs INTERFACE SYSTEM Comment: Therapeutic Range: Hi-level PE/DVT heparin protocol 80.1 -95.0 sec Lo-level PE/DVT heparin protocol 67.1 - 80.0 sec Cardiac Heparin Protocol 67.1 - 85.0 sec Neuro Heparin Protocol 67.1 - 80.0 sec As of 08/29/2006 note change in APTT Normal Range. 12/25/2006 2:53 AM CDT Antonio Lopez MD HEMATOLOGY ORDERABLES Edited Performing Organization Address [facility] Co de Phone Number INTERFACE SYSTEM Refer to clinic/hospital department * (ABNORMAL) POC GLUCOSE (12/24/2006 9:51 PM CDT) GLUCOSE POC 143(H) 60 - 100 mg/dL INTERFACE SYSTEM 12/24/2006 9:51 PM CDT us Antonio Lopez MD POINT OF CARE TESTING Edited Performing Organization Address City/[facility] de Phone Number INTERFACE SYSTEM Refer to clinic/hospital department * PROTIME-INR (12/24/2006 7:30 PM CDT) PROTIME 15.2 13.0 - 15.7 Secs INTERFACE SYSTEM Comment: As of 06 note change in normal range. INR 1.1 INTERFACE SYSTEM Comment: Expected Values for INR: [...] for Anticoagulation available from the pharmacy Faustina Tellez, Pharm D. 12/24/2006 7:30 PM CDT Result [facility] Antonio Lopez MD HEMATOLOGY ORDERABLES Edited Performing Organization Address [facility] Phone Number INTERFACE SYSTEM Refer to clinic/hospital department * (ABNORMAL) POC GLUCOSE (12/24/2006 5:55 PM CDT) GLUCOSE POC 132(H) 60 - 100 mg/dL INTERFACE SYSTEM 12/24/2006 5:55 PM CDT Result [facility] Antonio Lopez MD POINT OF CARE TESTING Edited Performing Organization Address [facility] Phone Number INTERFACE SYSTEM Refer to clinic/hospital department * (ABNORMAL) POC GLUCOSE (12/24/2006 11:30 AM CDT) GLUCOSE POC 172(H) 60 - 100 mg/dL INTERFACE SYSTEM 12/24/2006 11:3 0 AM CDT Antonio Lopez MD POINT OF CARE TESTING Edited Performing Organization Address [facility] Phone Number INTERFACE SYSTEM Refer to clinic/hospital department * (ABNORMAL) POC GLUCOSE (12/24/2006 6:06 AM CDT) GLUCOSE POC 130(H) 60 - 100 mg/dL INTERFACE SYSTEM 12/24/2006 6:06 AM CDT Antonio Lopez MD POINT OF CARE TESTING Edited Performing Organization Address [facility] Phone Number INTERFACE SYSTEM Refer to clinic/hospital department * (ABNORMAL) BASIC METABOLIC PANEL (12/24/2006 5:00 AM CDT) GLUCOSE 131(H) 70 - 110 mg/dL INTERFACE SYSTEM BUN 18(H) 7 - 17 mg/dL INTERFACE SYSTEM CREATININE 1.2 0.7 - 1.2 mg/dL INTERFACE SYSTEM SODIUM 135(L) 136 - 145 mEq/L INTERFACE SYSTEM POTASSIUM 4.4 3.5 - 5.0 mEq/L INTERFACE SYSTEM CHLORIDE 106 95 - 110 mEq/L INTERFACE SYSTEM CO2 24 22 - 32 mmol/l INTERFACE SYSTEM CALCIUM 7.7(L) 8.4 - 10.5 mg/dL INTERFACE SYSTEM ANION GAP 9 9 - 20 mEq/L INTERFACE SYSTEM OSMOLALITY, CALCULATED 283 275 - 295 mOsm/Kg INTERFACE SYSTEM 12/24/2006 5:00 AM CDT us Antonio Lopez MD CHEMISTRY ORDERABLES Edited Performing Organization Address [facility] Phone Number INTERFACE SYSTEM Refer to clinic/hospital department * (ABNORMAL) CBC WITHOUT DIFFERENTIAL (12/24/2006 5:00 AM CDT) WBC 12.3(H) 4.8 - 10.8 K/ul INTERFACE SYSTEM RBC 3.26(L) 4.20 - 5.40 Mil/ul INTERFACE SYSTEM HEMOGLOBIN 9.6(L) 12.0 - 16.0 g/dL INTERFACE SYSTEM HEMATOCRIT 29.2(L) 36.0 - 46.0 % INTERFACE SYSTEM MCV 89.6 84.0 - 103.0 Fl INTERFACE SYSTEM MCH 29.4 27.0 - 34.0 pg INTERFACE SYSTEM MCHC 32.9 30.0 - 35.0 g/dL INTERFACE SYSTEM RDW 14.3 11.0 - 14.5 % INTERFACE SYSTEM PLATELETS 180 140 - 440 K/ul INTERFACE SYSTEM MPV 8.7(L) 8.9 - 12.8 Fl INTERFACE SYSTEM NEUTROPHILS 70.6 42.2 - 75.2 % INTERFACE SYSTEM LYMPHOCYTES 17.7(L) 24.0 - 44.0 % INTERFACE SYSTEM MONOCYTES 11.3(H) 2.0 - 10.0 % INTERFACE SYSTEM EOSINOPHILS 0.2 0.0 - 7.0 % INTERFACE SYSTEM BASOPHILS 0.2 0.0 - 1.0 % INTERFACE SYSTEM NEUTROPHIL ABSOLUTE 8.7(H) 2.0 - 8.0 K/ul INTERFACE SYSTEM LYMPHOCYTE ABSOLUTE 2.2 1.2 - 4.0 K/ul INTERFACE SYSTEM MONOCYTE ABSOLUTE 1.4(H) 0.1 - 0.6 K/ul INTERFACE SYSTEM EOSINOPHIL ABSOLUTE 0.0 0.0 - 0.7 K/ul INTERFACE SYSTEM BASOPHILS ABSOLUTE 0.0 0.0 - 0.2 K/ul INTERFACE SYSTEM 12/24/2006 5:00 AM CDT Antonio Lopez MD HEMATOLOGY ORDERABLES Edited INTERFACE SYSTEM Refer to clinic/hospital department * (ABNORMAL) POC GLUCOSE (12/23/2006 8:50 PM CDT) GLUCOSE POC 155(H) 60 - 100 mg/dL INTERFACE SYSTEM 12/23/2006 8:50 PM CDT Antonio Lopez MD POINT OF CARE TESTING Edited INTERFACE SYSTEM Refer to clinic/hospital department * (ABNORMAL) POC GLUCOSE (12/23/2006 5:22 PM CDT) GLUCOSE POC 130(H) 60 - 100 mg/dL INTERFACE SYSTEM 12/23/2006 5:22 PM CDT us Antonio Lopez MD POINT OF CARE TESTING Edited Performing Organization Address [facility] Phone Number INTERFACE SYSTEM Refer to clinic/hospital department * (ABNORMAL) POC GLUCOSE (12/23/2006 11:52 AM CDT) GLUCOSE POC 154(H) 60 - 100 mg/dL INTERFACE SYSTEM 12/23/2006 11:5 2 AM CDT us Antonio Lopez MD POINT OF CARE TESTING Edited Performing Organization Address [facility] Phone Number INTERFACE SYSTEM Refer to clinic/hospital department * (ABNORMAL) HEMOGLOBIN AND HEMATOCRIT (12/23/2006 10:31 AM CDT) HEMOGLOBIN 8.0(L) 12.0 - 16.0 g/dL INTERFACE SYSTEM HEMATOCRIT 24.4(L) 36.0 - 46.0 % INTERFACE SYSTEM 12/23/2006 10:3 1 AM CDT us Antonio Lopez MD HEMATOLOGY ORDERABLES Edited Performing Organization Address [facility] Phone Number INTERFACE SYSTEM Refer to clinic/hospital department documented in this encounter Visit Diagnoses Diagnosis Degeneration of lumbar or lumbosacral intervertebral disc- Primary documented in this encounter Care Teams Senior User Experience Architect Relationship Specialty Start Date End Date Charles Delgadillo MD [address], [place] [id number] PCP - General Family Practice 09/05/10 documented as of this encounter
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
--- OUTSIDE RECORDS SUMMARY | 2025-09-18 01:38 | XMS_ITS | Encounter Summary ---
Author Organization [facility] Address [address] [place] [address] Care Team Providers Care Coverstitch Machine Operator Name Role Phone Charles Delgadillo MD Primary Care Provider Encounter Details Date Type Department Care Team (Latest Contact Info) Description 12/04/[address] 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 Gender Identity Not on file Sexual Orientation Not on file documented as of this encounter Plan of Treatment Not on file documented as of this encounter Visit Diagnoses Diagnosis Backache, unspecified- Primary Lumbosacral spondylosis Lumbosacral spondylosis without myelopathy Degeneration of lumbar or lumbosacral intervertebral disc documented in this encounter Care Teams Coverstitch Machine Operator Relationship Specialty Start Date End Date Charles Delgadillo MD [address] [place] [phone] PCP - General Family Practice 09/05/10 documented as of this encounter
--- OUTSIDE RECORDS SUMMARY | 2025-09-18 01:38 | XMS_ITS | Encounter Summary ---
Author Organization [facility] Address [address] [place] [address] Care Team Providers Care Credit Representative Name Role Phone Charles Delgadillo MD Primary Care Provider [phone] Encounter Details Date Type Department Care Team (Latest Contact Info) Description 12/04/2006 Outpatient [facility] [address] [place] [address] [address] [address] Antonio Lopez MD [address] [place] [address] Lumbago (Primary Dx) Social History Tobacco Use Types Packs/Day Years Used Date Smoking Tobacco: Never Assessed Comments Unknown Sex and Gender Information Value Date Recorded Sex Assigned at Not on file 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
--- OUTSIDE RECORDS SUMMARY | 2025-09-18 01:38 | XMS_ITS | Encounter Summary ---
Author Organization [facility] Address [address] [place] [address] Care Team Providers Care Special Events Fundraiser Name Role Phone Charles Delgadillo MD Primary Care Provider [phone] Encounter Details Date Type Department Care Team (Late st Contact Info) Description 05/19/2015 Ancillary Orders [facility] [address] [place] [address] Keesha Valle PA [address] [place] [address] Lumbosacral spondylosis without myelopathy (Primary Dx); Lumbosacral spondylosis; Lumbar facet joint pain; Chronic LBP; Lumbar radicular pain Social History Tobacco Use Types Packs/Day Years Used Date Smoking Tobacco: Never Smokeless Tobacco: Never Alcohol Use Standard Drinks/Week Comments No 0 (1 standard drink = 0.6 oz pur e alcohol) Comments No Sex and Gender Information Value Date Recorded Sex Assigned at Not on file 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 Vertebral body and disc space heights are maintained, noting postoperative changes at L4-L5. There is mild sclerosis of the apophyseal joints at L4-L5 and L5-S1. Vena cava umbrella filter is also noted as well as roughly circular distribution of Versatac spiral meagan compatible with hernia repair. Flexion and extension views fail to reveal evidence of abnormal translation. IMPRESSION 1. postoperative changes at L4-L5 without apparent complication 2. inferior vena cava umbrella and anterior abdominal wall postoperative changes as noted 3. mild osteoporosis of the apophyseal joints at L4-L5 and L5-S1 4. no acute changes seen radiographically Procedure Note Nicholas Lea MD - 05/19/2015 PROCEDURE XR LUMBAR SPINE, 5 views, 19 May 2015 DESCRIPTION AP and lateral lumbar spine views and collimated lateral L5-S1 projection show no acute fracture or spondylolisthesis. Vertebral body and disc space heights are maintained, noting postoperative changes at L4-L5. There is mild sclerosis of the apophyseal joints at L4-L5 and L5-S1. Vena cava umbrella filter is also noted as well as roughly circular distribution of Versatac spiral meagan compatible with hernia repair. Flexion and extension views fail to reveal evidence of abnormal translation. IMPRESSION 1. postoperative changes at L4-L5 without apparent complication 2. inferior vena cava umbrella and anterior abdominal wall postoperative changes as noted 3. mild osteoporosis of the apophyseal joints at L4-L5 and L5-S1 4. no acute changes seen radiographically us Keesha [facility] Final Result documented in this encounter Visit Diagnoses Diagnosis Lumbosacral spondylosis without myelopathy Lumbosacral spondylosis Lumbosacral spondylosis without myelopathy Lumbar facet joint pain Other symptoms referable to back Chronic LBP Lumbago Lumbar radicular pain Thoracic or lumbosacral neuritis or radiculitis, unspecified Lumbosacral spondylosis without myelopathy- Primary Lumbosacral spondylosis Lumbosacral spondylosis without myelopathy Lumbar facet joint pain Other symptoms referable to back Chronic LBP Lumbago Lumbar radicular pain Thoracic or lumbosacral neuritis or radiculitis, unspecified documented in this encounter Care Teams Special Events Fundraiser Relationship Specialty Start Date End Date Charles Delgadillo MD [address] [place] [id number] PCP - General Family Practice 09/05/10 documented as of this encounter
[2025-09-18 01:44] LABS: Hematocrit 27.8 % (36-47); Hemoglobin 8.10 g/dL (11.27-16.99); Mean Corpuscular HGB Conc 29.1 g/dL (30-55); Mean Corpuscular Hemoglobin 34.9 pg (27-33); Mean Corpuscular Volume 119.8 fl (85-98); Nucleated Red Blood Cells % 1.9 %; Platelet Count 352 10^3/cmm (157-399); Red Blood Count 2.32 10^6/uL (3.85-5.65); White Blood Count 16.34 10^3/uL (3.29-11.43)
--- NOTE | 2025-09-18 01:58 | PC.NURSE ---
Arm sling applied per instruction of Dr Gibson.
[2025-09-18 01:59] VITALS: BP 148/95; PULSE 90; RESP 17; O2SAT 95
[2025-09-18 02:02] LABS: Alanine Aminotransferase 37 U/L (0-33); Albumin Level 3.1 g/dL (3.5-5.2); Alkaline Phosphatase 215 U/L (35-105); Anion Gap 14.8 (5-19); Aspartate Amino Transferase 70 U/L (0-32); Blood Urea Nitrogen 14 mg/dL (8-23); Calcium 8.6 mg/dL (8.5-10.5); Carbon Dioxide 20 mmol/L (22-29); Chloride 107 mmol/L (98-107); Globulin 2.9 g/dL (1.3-4.6); Glucose 157 mg/dL (65-115); Osmolality Calculated 290 mOsm/kg (285-295); Potassium 3.8 mmol/L (3.5-5.1); Sodium 138 mmol/L (136-145); Total Protein 6.0 g/dL (6.6-8.7)
[2025-09-18 02:09] LABS: Glucose Urine UA Negative (Normal); Nitrate Urine Negative (Negative); Specific Gravity, Urine 1.024 (1.005-1.030)
[2025-09-18 02:13] LABS: Add Urine Microscopic? YES; Universal Test for UA Present (0)
[2025-09-18 02:20] VITALS: BP 144/72; PULSE 89; RESP 20; O2SAT 95
[2025-09-18] MEDS: HYDROcodone-acetaminophen 5-325 mg Tablet 2 TAB PO (02:39)
[2025-09-18 02:53] VITALS: BP 143/57; PULSE 90; O2SAT 96
== END 2025-09-18 02:56 | disposition home or self-care (01) ==
PROVIDERS: Emergency Provider Family Medicine; PCP Family Medicine
DX: S42.202A Unspecified fracture of upper end of left humerus, initial encounter for closed fracture (principal); W18.30XA Fall on same level, unspecified, initial encounter; Z79.4 Long term (current) use of insulin; E78.2 Mixed hyperlipidemia; J44.9 Chronic obstructive pulmonary disease, unspecified; E11.22 Type 2 diabetes mellitus with diabetic chronic kidney disease; I12.9 Hypertensive chronic kidney disease with stage 1 through stage 4 chronic kidney disease, or unspecified chronic kidney disease; N18.9 Chronic kidney disease, unspecified; Z79.82 Long term (current) use of aspirin
CPT/HCPCS: 73030; 80053; 81001; 85025; 99284; J9999

== ENCOUNTER 2025-09-20 14:28 | Emergency (ER) | payer MEDICARE, SELFPAY ==
[2025-09-20 14:32] VITALS: BP 141/49; PULSE 81; RESP 16; TEMP 36.6; O2SAT 99; BMI 34.3
--- NOTE | 2025-09-20 14:39 | XR_ITS ---
WS: [id number] Left shoulder, 3 views, 09/20/2025 Clinical Data: trauma Comparison: Left shoulder, 09/18/2025 Findings: The fracture of the proximal shaft of the left humerus remains in the same position. The left shoulder arthroplasty remains in the same position without dislocation. XR/XR shoulder LT min 2V* [id number] Impression: Proximal left humeral fracture unchanged.
--- NOTE | 2025-09-20 14:39 | CTR_ITS ---
PROCEDURE INFORMATION: Exam: CT Head Without Contrast Exam date and time: 09/20/2025 2:48 PM Age: 75 years old Clinical indication: Injury or trauma; Fall TECHNIQUE: Imaging protocol: Computed tomography of the head without contrast. Radiation optimization: All CT scans at this facility use at least one of these dose optimization techniques: automated exposure control; mA and/or kV adjustment per patient size (includes targeted exams where dose is matched to clinical indication); or iterative reconstruction. COMPARISON: No relevant prior studies available. RADIATION DOSE METRICS: Total DLP (mGy-cm): 1198.78 FINDINGS: Brain: No acute intra-axial hemorrhage. No masses. Normal stratton-white matter differentiation. No midline shift or mass effect. Mild patchy hypodensity in hemispheric white matter bilaterally most likely due to chronic microangiopathy. There is moderate diffuse cerebral atrophy present, consistent with this patient's age. 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 Old lacunar infarcts right basal ganglia. Cerebral ventricles: No ventriculomegaly. Paranasal sinuses: Visualized sinuses are unremarkable. No fluid levels. Mastoid air cells: Visualized mastoid air cells are well aerated. Bones: Unremarkable. No acute fracture. Soft tissues: Unremarkable. CT/CT head wo con* [id number] IMPRESSION: No acute intracranial abnormality.
--- NOTE | 2025-09-20 14:39 | W.ED.FALL ---
HPI - Fall General: Chief Complaint: Fall Stated Complaint: Fall Time Seen by Provider: 09/20/25 14:33 History of Present Illness: 75-year-old female presents emergency room after a fall. Patient stumbled fell against car door. She told the nurse she did not lose consciousness she is not any vomiting she told me she was not sure if she had loss consciousness she is complaining of pain to the back of her head she has no laceration or active bleeding. Last week she had fallen and had a proximal humerus fracture. The patient was discharged home with plans for follow-up with orthopedic surgery. Associated symptoms-after fall: Denies abdominal pain, chest pain or neck pain Related Data Home Medications ?Medication ?Instructions ?Recorded ?Confirmed diclofenac sodium 1 % topical gel 2 gm topical QID 05/26/20 08/31/25 epinephrine 0.3 mg/0.3 mL 0.3 mg IM Q10M PRN Allergic 05/26/20 08/31/25 injection, auto-injector Reaction fluticasone propionate 50 2 spray intranasal DAILY 05/26/20 08/31/25 mcg/actuation nasal spray,suspension lactobacillus combination no.8 3 3,000 mmu cells PO DAILY 05/26/20 08/31/25 billion cell capsule (Adult Probiotic) polyethylene glycol 3350 17 17 gm PO DAILY 05/26/20 08/31/25 gram/dose oral powder (Miralax) pregabalin 50 mg capsule (Lyrica) 50 mg PO TID 05/26/20 08/31/25 zolpidem 10 mg tablet 10 mg PO ONCE 05/26/20 08/31/25 albuterol sulfate 90 mcg/actuation 2 puff inhalation QID PRN Allergic 01/01/23 08/31/25 aerosol inhaler Symptoms cyclobenzaprine 10 mg tablet 10 mg PO TID PRN Spasms 01/01/23 08/31/25 insulin glargine 100 unit/mL (3 52 unit SUBCUT QAM 08/26/23 08/31/25 mL) subcutaneous pen (Lantus Solostar U-100 Insulin) atorvastatin 20 mg tablet mg PO 11/25/23 08/31/25 blood-glucose sensor ([employer] G7 #1 ea 11/25/23 08/31/25 Sensor device) metoprolol tartrate 25 mg tablet 25 mg PO BID 12/24/23 08/31/25 pantoprazole 40 mg tablet,delayed 40 mg PO DAILY 12/24/23 08/31/25 release cetirizine 10 mg tablet mg PO 01/26/25 08/31/25 insulin lispro 100 unit/mL SUBCUT 01/26/25 08/31/25 subcutaneous pen Previous Rx's ?Medication ?Instructions ?Recorded pen needle, diabetic 31 gauge x #100 ea 09/26/2112/06 (Sure-Fine Pen Oakes) aspirin 81 mg tablet,delayed 81 mg PO DAILY #30 tabs 12/24/23 release (Adult Low Dose Aspirin) ferrous gluconate 324 mg (38 mg 324 mg PO ONCE #30 tabs 03/23/25 iron) tablet hydrocodone 5 mg-acetaminophen 325 1 tab PO Q6H PRN pain #15 tabs 09/18/25 mg tablet Allergies Allergy/AdvReac Type Severity Reaction Status Date / Time fluoxetine Allergy ALGY-Hives Verified 09/18/25 01:35 meperidine (From Demerol) Allergy ALGY-Rash Verified 09/18/25 01:35 morphine Allergy Unknown Verified 09/18/25 01:35 naloxone (From Talwin NX) Allergy ALGY-Anaphy Verified 09/18/25 01:35 laxis olopatadine (From Patanase) Allergy ADR-Nose Verified 09/18/25 01:35 Bleed oxycodone Allergy ALGY-Rash Verified 09/18/25 01:35 pentazocine Allergy ALGY-Swell Verified 09/18/25 01:35 Lip/Tongue/Throat Sulfa (Sulfonamide Allergy ALGY-Rash Verified 09/18/25 01:35 Antibiotics) Review of Systems Const: Denies: fever(s) or chills Card: Denies: chest pain Resp: Denies: dyspnea GI: Denies: abdominal pain : Denies: dysuria, urinary frequency or urinary urgency Musc: Denies: neck pain or back pain Skin/Breast: Denies: rash PFSH ED PFSH: Medical History Angiodysplasia of stomach Anemia due to other cause, not classified History of deep vein thrombosis of lower extremity Mixed hyperlipidemia Primary hypertension GERD (gastroesophageal reflux disease) Type 2 diabetes mellitus without complication, without long-term current use of insulin Chronic kidney disease Allergic rhinitis Anxiety and depression Lymphocytosis-symptomatc Gamma T lymphocytosis Cirrhosis of liver Fibromyalgia Osteoarthritis COPD (chronic obstructive pulmonary disease) Intestinal obstruction 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 Mother Diabetes Lung disease Sister Cancer breast Social History Smoking and tobacco/nicotine status: never used tobacco/nicotine Alcohol intake: never Substance/Drug Use: never Physical Exam Const: COMMON NORMALS: no acute distress GENERAL APPEARANCE: cooperative and comfortable ORIENTATION/CONSCIOUSNESS: Yes awake, Yes oriented to person, Yes oriented to place and Yes oriented to time HENMT: COMMON NORMALS: normocephalic, atraumatic and hearing grossly normal bilaterally HEAD & SCALP: normocephalic and atraumatic Resp: COMMON NORMALS: normal respiratory effort, No retractions, No use of accessory muscles and clear to auscultation bilaterally AUSCULTATION: clear to auscultation bilaterally Cardio: COMMON NORMALS: regular rate, regular rhythm and No murmurs present (Cardio) RATE: regular rate RHYTHM: regular rhythm GI: COMMON NORMALS: Soft to palpation and No hepatosplenomegaly present AUSCULTATION: Yes normoactive bowel sounds PALPATION: Yes Soft to palpation, No Tenderness to palpation present (GI), No Guarding due to palpation present (GI) and Yes No hepatosplenomegaly present Extremity: COMMON NORMALS: capillary refill normal, no clubbing, cyanosis or edema, no calf tenderness and no pedal edema OTHER: Deformity of the left proximal humerus left arm is in the sling has seen last week with a fracture. Unchanged neurovascularly intact Neuro: SENSORIUM/ORIENTATION: Yes oriented to person, Yes oriented to place and Yes oriented to time Skin: COMMON NORMALS: no rashes or lesions noted GENERAL SKIN EXAM: no rashes or lesions noted Course Vital Signs: Vital signs: Vital Signs Temperature 97.9 F 09/20/25 14:32 Pulse Rate 70 09/20/25 14:45 Respiratory Rate 16 09/20/25 14:32 Blood Pressure 141/49 09/20/25 14:32 Pulse Oximetry 94 09/20/25 14:45 Oxygen Delivery Me thod Room Air 09/20/25 14:45 MDM - Fall Medical Decision Making Medical decision making Social determinants: Limitations due to previous fracture I reviewed the patient's medical record. I reviewed the patient's current home meds. Alternate historians: None Differential diagnosis: Closed head injury, concussion, intracranial bleed, displacement of previous left proximal humerus fracture Lab Review: None Imaging: CT head negative, No acute intracranial bleeding no skull fracture. X-ray of the left proximal humerus no significant change from previous reviewed by myself. Assessment of risk Level of risk: Moderate Hospitalization considerations: May need hospitalization pending completion of imaging. If has intracranial injury main or worsening of previous fracture may need hospitalization Reexamination: Improved pain improved after pain medications Assessment and plan: Today's fall as a result of difficulty getting into a vehicle and stumbling in the large part due to not being able to use her left arm. No further injury in the left arm fracture CT of the head negative exam otherwise unremarkable discharge home continues hydrocodone previously prescribed and follow-up with Ortho as planned. Case management is still working on making appointment for them. Lab Data Radiology Impressions Head CT 09/20/25 14:39 IMPRESSION: No acute intracranial abnormality. Shoulder X-Ray 09/20/25 14:39 Impression: Proximal left humeral fracture unchanged. All radiology interpretation(s) finalized by discharge Discharge Plan Discharge Patient Disposition: Home Clinical Impression: Fall Qualifiers: Encounter type: initial encounter Qualified Code(s): W19.XXXA - Unspecified fall, initial encounter Fracture of humerus, proximal, left, closed Qualifiers: Encounter type: subsequent encounter Fracture morphology: other fracture Fracture alignment: displaced Fracture healing: with routine healing Qualified Code(s): S42.292D - Other displaced fracture of upper end of left humerus, subsequent encounter for fracture with routine healing Condition: Stable Prescriptions: No Action diclofenac sodium 1 % gel 2 gm TOPICAL QID Rx Instructions: apply to single elbow, wrist or hand; for hand includes palm/fingers/back of hand epinephrine 0.3 mg/0.3 mL auto-injector 0.3 mg IM Q10M PRN (Reason: Allergic Reaction) Rx Instructions: for 2 doses fluticasone propionate 50 mcg/actuation spray,suspension 2 spray INTRANASAL DAILY Rx Instructions: administer into each nostril pregabalin [Lyrica] 50 mg capsule 50 mg PO TID polyethylene glycol 3350 [Miralax] 17 gram/dose powder 17 gm PO DAILY Adult Probiotic 3 billion cell capsule 3,000 mmu cells PO DAILY Rx Instructions: administer with a meal zolpidem 10 mg tablet 10 mg PO ONCE albuterol sulfate 90 mcg/actuation HFA aerosol inhaler 2 puff INHALATION QID PRN (Reason: Allergic Symptoms) cyclobenzaprine 10 mg tablet 10 mg PO TID PRN (Reason: Spasms) (DME) pen needle, diabetic [Sure-Fine Pen Oakes] 31 gauge x 3/16 needle See Rx Instructions .ROUTE .MEDSUPPLY Qty: 100 2RF Rx Instructions: Use once daily atorvastatin 20 mg tablet PO (DME) Dexcom G7 Sensor Device See Rx Instructions .ROUTE .MEDSUPPLY Qty: 1 Rx Instructions: As directed cetirizine 10 mg tablet PO insulin lispro 100 unit/mL insulin pen SUBCUT metoprolol tartrate 25 mg tablet 25 mg PO BID aspirin [Adult Low Dose Aspirin] 81 mg tablet,delayed release (DR/EC) 81 mg PO DAILY Qty: 30 0RF pantoprazole 40 mg tablet,delayed release (DR/EC) 40 mg PO DAILY ferrous gluconate 324 mg (38 mg iron) tablet 324 mg PO ONCE Qty: 30 0RF insulin glargine [Lantus Solostar U-100 Insulin] 100 unit/mL (3 mL) insulin pen 52 unit SUBCUT QAM Rx Instructions: Inject 32 units subcut daily. hydrocodone-acetaminophen 5-325 mg tablet 1 tab PO Q6H PRN (Reason: pain) Qty: 15 0RF Discharge Orders: Discharge ED (Routine); Ordered 09/20/25 Ordered By: Baldomero Gibson Referrals: Norman Caldera MD [Primary Care Provider, Family Practice] Discharge Diet: Usual diet Discharge Activity: Limit activity as instructed Patient Instructions: Opioid Safety, Pain Management, Patient Portal & Gerardo Instructions Activity Restrictions/Additional Instructions: Thank you for choosing [facility] for your healthcare needs today. It is very important that you follow up as instructed or that you return to the Emergency Department should you have concerns or if your condition changes or worsens in any way. Emergency department visits are focused on emergent conditions, in some cases you may require further evaluation on an outpatient basis. You are seen in the emergency room after a fall. Due to reporting a. CT of your head was unremarkable for any acute intracranial injury. X-ray of your left shoulder did not show significant change from the previous proximal humerus fracture you had. Case management will make an appointment to follow-up with orthopedics. Continue to wear the sling continue to use the previously prescribed pain medications. (Please note that included in your discharge packet is information concerning opioid safety and pain management. This information is given to all patients were discharged from the ER regardless of their discharge diagnosis or the medicines they usually take or are prescribed.) Print Language: Luxembourgish Coding Level of Care Code ED Toolmaker for [facility] [place]
--- OUTSIDE RECORDS SUMMARY | 2025-09-20 14:42 | XMS_ITS | Encounter Summary ---
Author Organization [facility] Address [address] [place] [address] Care Team Providers Care Burrer Machine Name Role Phone Charles Delgadillo MD Primary Care Provider Encounter Details Date Type Department Care Team (Late st Contact Info) Description 01/12/2007 Inpatient Historical HIS IN BED Adeel Jenkins S, DO [address] [place] [address] Poisoning by Anticoagulants (Primary Dx) Social History Tobacco Use Types Packs/Day Years Used Date Smoking Tobacco: Never Assessed Comments Unknown Sex and Gender Information Value Date Recorded Sex Assigned at Not on file Legal Sex Female 5:59 AM [employer] Gender Identity Not on file Sexual [...] OF CARE TESTING Edited Performing Organization Address [facility] de Phone Number INTERFACE SYSTEM [...] ORDERABLES COM Edit ed Performing Organization Address [facility] de Phone Number INTERFACE SYSTEM [...] DO CHEMISTRY ORDERABLES Edited Performing Organization Address [facility] Phone Number INTERFACE SYSTEM Refer to [...] DO HEMATOLOGY ORDERABLES Edited Performing Organization Address [facility] Phone Number INTERFACE SYSTEM Refer to clinic/hospital department * (ABNORMAL) POC GLUCOSE (01/20/2007 12:26 AM CDT) GLUCOSE POC 110(H) 60 - 100 mg/dL INTERFACE SYSTEM 01/20/2007 12:2 6 AM CDT us Adeel Jenkins DO POINT OF CARE TESTING Edited Performing Organization Address City/[facility] Phone Number INTERFACE SYSTEM Refer to clinic/hospital department * (ABNORMAL) POC GLUCOSE (01/19/2007 5:45 PM CDT) GLUCOSE POC 103(H) 60 - 100 mg/dL INTERFACE SYSTEM 01/19/2007 5:45 PM CDT us Adeel Jenkins DO POINT OF CARE TESTING Edited Performing Organization Address City/[facility] Co de Phone Number INTERFACE SYSTEM Refer to clinic/hospital department * POC GLUCOSE (01/19/2007 11:42 AM CDT) GLUCOSE POC 100 60 - 100 mg/dL INTERFACE SYSTEM 01/19/2007 11:4 2 AM CDT us Adeel Jenkins DO POINT OF CARE TESTING Edited Performing Organization Address [facility] Phone Number INTERFACE SYSTEM Refer to clinic/hospital department * (ABNORMAL) POC GLUCOSE (01/19/2007 5:43 AM CDT) GLUCOSE POC 110(H) 60 - 100 mg/dL INTERFACE SYSTEM 01/19/2007 5:43 AM CDT us Adeel Jenkins DO POINT OF CARE TESTING Edited Performing Organization Address [facility] Phone Number INTERFACE SYSTEM Refer to clinic/hospital department * (ABNORMAL) POC GLUCOSE (01/18/2007 11:59 PM CDT) GLUCOSE POC 130(H) 60 - 100 mg/dL INTERFACE SYSTEM COMMENT POC Follow Protocol INTERFACE SYSTEM 01/18/2007 11:5 9 PM CDT [employer] Adeel Jenkins DO POINT OF CARE TESTING Edited Performing Organization Address City/[facility] de Phone Number INTERFACE SYSTEM Refer to clinic/hospital department * (ABNORMAL) POC GLUCOSE (01/18/2007 7:06 PM CDT) GLUCOSE POC 135(H) 60 - 100 mg/dL INTERFACE SYSTEM COMMENT POC Follow Protocol INTERFACE SYSTEM 01/18/2007 7:06 PM CDT us Adeel Jenkins DO POINT OF CARE TESTING Edited Performing Organization Address [facility] de Phone Number INTERFACE SYSTEM Refer to clinic/hospital department * (ABNORMAL) POC GLUCOSE (01/18/2007 1:12 PM CDT) GLUCOSE POC 128(H) 60 - 100 mg/dL INTERFACE SYSTEM 01/18/2007 1:12 PM CDT Adeel Jenkins DO POINT OF CARE TESTING Edited Performing Organization Address [facility] de Phone Number INTERFACE SYSTEM Refer to clinic/hospital department * (ABNORMAL) POC GLUCOSE (01/18/2007 5:48 AM CDT) GLUCOSE POC 115(H) 60 - 100 mg/dL INTERFACE SYSTEM 01/18/2007 5:48 AM CDT us Adeel Jenkins DO POINT OF CARE TESTING Edited Performing Organization Address [facility] de Phone Number INTERFACE SYSTEM [...] ORDERABLES COM Edit ed Performing Organization Address [facility] Phone Number INTERFACE SYSTEM Refer to [...] Jenkins HEMATOLOGY ORDERABLES Edited Performing Organization Address [facility] Phone Number INTERFACE SYSTEM Refer to [...] DO CHEMISTRY ORDERABLES Edited Performing Organization Address [facility] Phone Number INTERFACE SYSTEM Refer to clinic/hospital department * (ABNORMAL) POC GLUCOSE (01/18/2007 1:06 AM CDT) GLUCOSE POC 123(H) 60 - 100 mg/dL INTERFACE SYSTEM 01/18/2007 1:06 AM CDT us Adeel Jenkins DO POINT OF CARE TESTING Edited Performing Organization Address [facility] Phone Number INTERFACE SYSTEM Refer to clinic/hospital department * (ABNORMAL) POC GLUCOSE (01/17/2007 5:41 PM CDT) GLUCOSE POC 118(H) 60 - 100 mg/dL INTERFACE SYSTEM 01/17/2007 5:41 PM CDT us Adeel Jenkins DO POINT OF CARE TESTING Edited Performing Organization Address [facility] Phone Number INTERFACE SYSTEM Refer to clinic/hospital department * (ABNORMAL) POC GLUCOSE (01/17/2007 11:44 AM CDT) GLUCOSE POC 112(H) 60 - 100 mg/dL INTERFACE SYSTEM 01/17/2007 11:4 4 AM CDT us Adeel Jenkins DO POINT OF CARE TESTING Edited Performing Organization Address [facility] Phone Number INTERFACE SYSTEM Refer to clinic/hospital department * (ABNORMAL) POC GLUCOSE (01/17/2007 5:40 AM CDT) GLUCOSE POC 125(H) 60 - 100 mg/dL INTERFACE SYSTEM 01/17/2007 5:40 AM CDT us Adeel Jenkins DO POINT OF CARE TESTING Edited Performing Organization Address [facility] de Phone Number INTERFACE SYSTEM [...] mOsm/Kg INTERFACE SYSTEM 01/17/2007 2:53 AM CDT [employer] DO CHEMISTRY ORDERABLES Edited Performing Organization Address [facility] de Phone Number INTERFACE SYSTEM Refer to clinic/hospital department * (ABNORMAL) DIFFERENTIAL, MANUAL (01/17/2007 2:53 AM CDT) Pathologist [facility] NEUTROPHILS, SEG 54 36 - 66 % [...] INTERFAC E SYSTEM 01/17/2007 2:53 AM CDT [employer] DO HEMATOLOGY ORDERABLES COM Edit ed Performing Organization Address [facility] Co de Phone Number INTERFACE SYSTEM Refer [...] DO HEMATOLOGY ORDERABLES Edited Performing Organization Address [facility] Phone Number INTERFACE SYSTEM Refer to clinic/hospital department * (ABNORMAL) POC GLUCOSE (01/16/2007 11:40 PM CDT) GLUCOSE POC 134(H) 60 - 100 mg/dL INTERFACE SYSTEM 01/16/2007 11:4 0 PM CDT us Adeel Jenkins DO POINT OF CARE TESTING Edited Performing Organization Address City/[facility] de Phone Number INTERFACE SYSTEM Refer to clinic/hospital department * (ABNORMAL) POC GLUCOSE (01/16/2007 5:53 PM CDT) GLUCOSE POC 101(H) 60 - 100 mg/dL INTERFACE SYSTEM 01/16/2007 5:53 PM CDT us Adeel Jenkins DO POINT OF CARE TESTING Edited Performing Organization Address City/[facility] de Phone Number INTERFACE SYSTEM Refer to clinic/hospital department * (ABNORMAL) POC GLUCOSE (01/16/2007 11:48 AM CDT) GLUCOSE POC 136(H) 60 - 100 mg/dL INTERFACE SYSTEM 01/16/2007 11:4 8 AM CDT Adeel Jenkins DO POINT OF CARE TESTING Edited Performing Organization Address [facility] Phone Number INTERFACE SYSTEM Refer to [...] DO CHEMISTRY ORDERABLES Edited Performing Organization Address [facility] Phone Number INTERFACE SYSTEM Refer to [...] DO HEMATOLOGY ORDERABLES Edited Performing Organization Address City/[facility]/ZIP Co de Phone Number INTERFACE SYSTEM Refer [...] OF CARE TESTING Edited Performing Organization Address [facility] Phone Number INTERFACE SYSTEM Refer to [...] DO CHEMISTRY ORDERABLES Edited Performing Organization Address [facility] Phone Number INTERFACE SYSTEM Refer to clinic/hospital department * (ABNORMAL) BRAIN NATRIURETIC PEPTIDE, BNP OR PROBNP (01/15/2007 2:02 PM CDT) Pathologist [facility] BRAIN NATRIURETIC PEPTIDE 298(H) 0 - 125 pg/mL INTERFACE SYSTEM 01/15/2007 2:02 PM CDT [employer] Adeel Esvin Gregory VASQUEZ CHEMISTRY ORDERABLES Edited Performing Organization Address [facility] Phone Number INTERFACE SYSTEM Refer to clinic/hospital department * (ABNORMAL) HEMOGLOBIN AND HEMATOCRIT (01/15/2007 2:02 PM CDT) Pathologist [facility] HEMOGLOBIN 9.3(L) 12.0 - 16.0 g/dL INTERFACE SYSTEM HEMATOCRIT 28.1(L) 36.0 - 46.0 % INTERFACE SYSTEM 01/15/2007 2:02 PM CDT Adeel Jenkins DO HEMATOLOGY ORDERABLES Edited Performing Organization Address [facility] de Phone Number INTERFACE SYSTEM Refer to clinic/hospital department * (ABNORMAL) POC GLUCOSE (01/15/2007 12:39 PM CDT) GLUCOSE POC 110(H) 60 - 100 mg/dL INTERFACE SYSTEM 01/15/2007 12:3 9 PM CDT Adeel Jenkins DO POINT OF CARE TESTING Edited Performing Organization Address [facility] de Phone Number INTERFACE SYSTEM [...] DO HEMATOLOGY ORDERABLES Edited Performing Organization Address City/[facility] Co de Phone Number INTERFACE SYSTEM Refer to clinic/hospital department * PHOSPHORUS (01/15/2007 3:16 AM CDT) PHOSPHORUS 3.1 2.5 - 4.6 mg/dL INTERFACE SYSTEM 01/15/2007 3:16 AM CDT Adeel Jenkins DO CHEMISTRY ORDERABLES Edited Performing Organization Address City/State/[facility] Co de Phone Number INTERFACE SYSTEM Refer to clinic/hospital department * MAGNESIUM LEVEL (01/15/2007 3:16 AM CDT) MAGNESIUM 2.1 1.7 - 2.4 mg/dL INTERFACE SYSTEM Comment: The new reference range is 1.7-2.4 The old referance range was 1.6-2.3 01/15/2007 3:16 AM CDT us Adeel Jenkins CHEMISTRY ORDERABLES Edited Performing Organization Address [facility] Phone Number INTERFACE SYSTEM Refer to [...] [employer] CHEMISTRY ORDERABLES Edited Performing Organization Address [facility] Phone Number INTERFACE SYSTEM Refer to clinic/hospital department * (ABNORMAL) POC GLUCOSE (01/14/2007 11:30 PM CDT) GLUCOSE POC 113(H) 60 - 100 mg/dL INTERFACE SYSTEM 01/14/2007 11:3 0 PM CDT Adeel Esvin Gregory [employer]Z POINT OF CARE TESTING Edited Performing Organization Address [facility] Phone Number INTERFACE SYSTEM Refer to clinic/hospital department * POTASSIUM LEVEL (01/14/2007 9:06 PM CDT) POTASSIUM 3.5 3.5 - 5.0 mEq/L INTERFACE SYSTEM 01/14/2007 9:06 PM CDT Adeel Esvin EatonGregoryana VASQUEZ CHEMISTRY ORDERABLES Edited Performing Organization Address [facility] Phone Number INTERFACE SYSTEM Refer to clinic/hospital department * (ABNORMAL) HEMOGLOBIN AND HEMATOCRIT (01/14/2007 9:06 PM CDT) HEMOGLOBIN 9.0(L) 12.0 - 16.0 g/dL INTERFACE SYSTEM HEMATOCRIT 26.7(L) 36.0 - 46.0 % INTERFACE SYSTEM 01/14/2007 9:06 PM CDT Adeel Jenkins DO HEMATOLOGY ORDERABLES Edited Performing Organization Address [facility] de Phone Number INTERFACE SYSTEM Refer to clinic/hospital department * (ABNORMAL) POC GLUCOSE (01/14/2007 5:48 PM CDT) GLUCOSE POC 110(H) 60 - 100 mg/dL INTERFACE SYSTEM 01/14/2007 5:48 PM CDT Adeel Jenkins DO POINT OF CARE TESTING Edited Performing Organization Address [facility] Phone Number INTERFACE SYSTEM Refer to clinic/hospital department * (ABNORMAL) HEMOGLOBIN AND HEMATOCRIT (01/14/2007 3:09 PM CDT) HEMOGLOBIN 9.2(L) 12.0 - 16.0 g/dL INTERFACE SYSTEM HEMATOCRIT 27.4(L) 36.0 - 46.0 % INTERFACE SYSTEM 01/14/2007 3:09 PM CDT Adeel Esvin EatonGregoryana VASQUEZ HEMATOLOGY ORDERABLES Edited Performing Organization Address [facility] Phone Number INTERFACE SYSTEM Refer to [...] mOsm/Kg INTERFACE SYSTEM 01/14/2007 3:09 PM CDT [employer] DO CHEMISTRY ORDERABLES Edited Performing Organization Address City/[facility]/ZIP Co de Phone Number INTERFACE SYSTEM Refer to clinic/hospital department * (ABNORMAL) POC GLUCOSE (01/14/2007 12:06 PM CDT) GLUCOSE POC 106(H) 60 - 100 mg/dL INTERFACE SYSTEM 01/14/2007 12:0 6 PM CDT Adeel Jenkins DO POINT OF CARE TESTING Edited Performing Organization Address [facility] de Phone Number INTERFACE SYSTEM [...] TESTING COM Edit ed Performing Organization Address City/State/[facility] Co de Phone Number INTERFACE SYSTEM Refer [...] OF CARE TESTING Edited Performing Organization Address [facility] Phone Number INTERFACE SYSTEM Refer to [...] Goal INR 3.0; range 2.5 - 3.5 POST-ID Goal INR 2.5; range 2.0 - 3.0 or Goal 3.0; range 2.5 - 3.5 Atrial Fibrillation Goal INR 2.5; range 2.0 - 3.0 Ischemic Stroke Goal INR 2.5; range 2.0 - 3.0 For additional information see Guidelines for Anticoagulation available from the pharmacy Johanny Frank. 01/14/2007 3:07 AM CDT Adeel Jenkins DO HEMATOLOGY ORDERABLES Edited Performing Organization Address [facility] Phone Number INTERFACE SYSTEM Refer to [...] DO HEMATOLOGY ORDERABLES Edited Performing Organization Address City/[facility] Co de Phone Number INTERFACE SYSTEM Refer [...] DO CHEMISTRY ORDERABLES Edited Performing Organization Address [facility] Phone Number INTERFACE SYSTEM Refer to [...] VASQUEZ CHEMISTRY ORDERABLES Edited Performing Organization Address [facility] Phone Number INTERFACE SYSTEM Refer to clinic/hospital department * (ABNORMAL) POC GLUCOSE (01/13/2007 11:18 PM CDT) GLUCOSE POC 110(H) 60 - 100 mg/dL INTERFACE SYSTEM 01/13/2007 11:1 8 PM CDT Adeel Eatonana VASQUEZ POINT OF CARE TESTING Edited Performing Organization Address [facility] Phone Number INTERFACE SYSTEM Refer to [...] Goal INR 3.0; range 2.5 - 3.5 POST-ID Goal INR 2.5; range 2.0 - 3.0 [...] DO HEMATOLOGY ORDERABLES Edited Performing Organization Address City/[facility] de Phone Number INTERFACE SYSTEM Refer to clinic/hospital department * (ABNORMAL) POC GLUCOSE (01/13/2007 5:22 PM CDT) GLUCOSE POC 107(H) 60 - 100 mg/dL INTERFACE SYSTEM 01/13/2007 5:22 PM CDT Adeel Jenkins DO POINT OF CARE TESTING Edited Performing Organization Address [facility] de Phone Number INTERFACE SYSTEM [...] TESTING COM Edit ed Performing Organization Address [facility] Phone Number INTERFACE SYSTEM Refer to [...] Goal INR 3.0; range 2.5 - 3.5 POST-ID Goal INR 2.5; range 2.0 - 3.0 or Goal 3.0; range 2.5 - 3.5 Atrial Fibrillation Goal INR 2.5; range 2.0 - 3.0 Ischemic Stroke Goal INR 2.5; range 2.0 - 3.0 For additional information see Guidelines for Anticoagulation available from the pharmacy Johanny Frank D. 01/13/2007 2:32 PM CDT Adeel Jenkins DO HEMATOLOGY ORDERABLES Edited Performing Organization Address [facility] Phone Number INTERFACE SYSTEM Refer to [...] Diff INTERFACE SYSTEM 01/13/2007 2:32 PM CDT [employer] HEMATOLOGY ORDERABLES Edited Performing Organization Address [facility] Phone Number INTERFACE SYSTEM Refer to clinic/hospital department * (ABNORMAL) POC GLUCOSE (01/13/2007 1:16 PM CDT) GLUCOSE POC 106(H) 60 - 100 mg/dL INTERFACE SYSTEM 01/13/2007 1:16 PM CDT [employer] DO POINT OF CARE TESTING Edited Performing Organization Address [facility] Phone Number INTERFACE SYSTEM Refer to clinic/hospital department * (ABNORMAL) HEMOGLOBIN AND HEMATOCRIT (01/13/2007 7:45 AM CDT) HEMOGLOBIN 9.9(L) 12.0 - 16.0 g/dL INTERFACE SYSTEM HEMATOCRIT 28.7(L) 36.0 - 46.0 % INTERFACE SYSTEM 01/13/2007 7:45 AM CDT [employer] DO HEMATOLOGY ORDERABLES Edited Performing Organization Address [facility] de Phone Number INTERFACE SYSTEM [...] mmol/l INTERFACE SYSTEM 01/13/2007 5:17 AM CDT Aedel Jenkins DO POINT OF CARE TESTING COM Edit ed Performing Organization Address [facility] Co de Phone Number INTERFACE SYSTEM Refer [...] Goal INR 3.0; range 2.5 - 3.5 POST-ID Goal INR 2.5; range 2.0 - 3.0 or Goal 3.0; range 2.5 - 3.5 Atrial Fibrillation Goal INR 2.5; range 2.0 - 3.0 Ischemic Stroke Goal INR 2.5; range 2.0 - 3.0 For additional information see Guidelines for Anticoagulation available from the pharmacy Johanny Frank 01/13/2007 3:40 AM CDT Adeel Gregory HEMATOLOGY ORDERABLES Edited Performing Organization Address [facility] Phone Number INTERFACE SYSTEM Refer to [...] DO CHEMISTRY ORDERABLES Edited Performing Organization Address [facility] Phone Number INTERFACE SYSTEM Refer to [...] DO HEMATOLOGY ORDERABLES Edited Performing Organization Address City/[facility] Co de Phone Number INTERFACE SYSTEM Refer [...] DO ABG ORDERABLES Edited Performing Organization Address [facility] de Phone Number INTERFACE SYSTEM [...] TESTING COM Edit ed Performing Organization Address City/[facility] de Phone Number INTERFACE SYSTEM Refer to clinic/hospital department * (ABNORMAL) PLATELET COUNT (01/13/2007 12:30 AM CDT) PLATELETS 67(L) 140 - 440 K/ul INTERFACE SYSTEM 01/13/2007 12:3 0 AM CDT Adeel Jenkins DO HEMATOLOGY ORDERABLES Edited Performing Organization Address City/[facility] de Phone Number INTERFACE SYSTEM [...] Goal INR 3.0; range 2.5 - 3.5 POST-ID Goal INR 2.5; range 2.0 - 3.0 or Goal 3.0; range 2.5 - 3.5 Atrial Fibrillation Goal INR 2.5; range 2.0 - 3.0 Ischemic Stroke Goal INR 2.5; range 2.0 - 3.0 For additional information see Guidelines for Anticoagulation available from the pharmacy Johanny Frank. 01/13/2007 12:3 0 AM CDT Adeel Jenkins DO HEMATOLOGY ORDERABLES Edited Performing Organization Address [facility] Phone Number INTERFACE SYSTEM Refer to clinic/hospital department * (ABNORMAL) HEMOGLOBIN AND HEMATOCRIT (01/13/2007 12:30 AM CDT) HEMOGLOBIN 9.0(L) 12.0 - 16.0 g/dL INTERFACE SYSTEM HEMATOCRIT 25.9(L) 36.0 - 46.0 % INTERFACE SYSTEM 01/13/2007 12:3 0 AM CDT Adeel Eatonson DO HEMATOLOGY ORDERABLES Edited Performing Organization Address [facility] Phone Number INTERFACE SYSTEM Refer to clinic/hospital department * CK TOTAL, RELATIVE INDEX (01/13/2007 12:30 AM CDT) CK-MB CHEMICAL INDEX 3.7 0.0 - 4.5 INTERFACE SYSTEM 01/13/2007 12:3 0 AM CDT Gracia Hayes MD CHEMISTRY ORDERABLES Edite d Performing Organization Address [facility] Phone Number INTERFACE SYSTEM Refer to clinic/hospital department * (ABNORMAL) CK (01/13/2007 12:30 AM CDT) CK 656(H) 26 - 140 U/L INTERFACE SYSTEM Comment: As of 05 the [facility] has changed testing methods. The new reference ranges are Males 38-174 Females 26-140 The old referance ranges were Males 0-155 Females 0-133 01/13/2007 12:3 0 AM CDT Gracia Hayes MD CHEMISTRY ORDERABLES Edite d Performing Organization Address City/[facility] Phone Number INTERFACE SYSTEM Refer to clinic/hospital department * (ABNORMAL) CARDIAC ENZYMES (01/13/2007 12:30 AM CDT) TROPONIN I 0.6 0.0 - 1.5 ng/mL INTERFACE SYSTEM CKMB 24.0(H) 0.0 - 5.0 ng/mL INTERFACE SYSTEM 01/13/2007 12:3 0 AM CDT Gracia Hayes MD CHEMISTRY ORDERABLES Edite d Performing Organization Address [facility] Phone Number INTERFACE SYSTEM Refer to [...] ORDERABLES COM Edit ed Performing Organization Address [facility] Phone Number INTERFACE SYSTEM Refer to [...] DO HEMATOLOGY ORDERABLES Edited Performing Organization Address City/[facility] Co de Phone Number INTERFACE SYSTEM Refer [...] TESTING COM Edit ed Performing Organization Address City/[facility]/ZIP Co de Phone Number INTERFACE SYSTEM Refer [...] APTT Normal Range. 01/12/2007 6:55 PM CDT [facility] Esvin Gregory HEMATOLOGY ORDERABLES Edited Performing Organization Address [facility] Phone Number INTERFACE SYSTEM Refer to [...] Goal INR 3.0; range 2.5 - 3.5 POST-ID Goal INR 2.5; range 2.0 - 3.0 or Goal 3.0; range 2.5 - 3.5 Atrial Fibrillation Goal INR 2.5; range 2.0 - 3.0 Ischemic Stroke Goal INR 2.5; range 2.0 - 3.0 For additional information see Guidelines for Anticoagulation available from the pharmacy Faustian Tellez Pharm D. 01/12/2007 6:55 PM CDT [facility] Esvin Gregory HEMATOLOGY ORDERABLES Edited Performing Organization Address [facility] Phone Number INTERFACE SYSTEM Refer to [...] Diff INTERFACE SYSTEM 01/12/2007 6:55 PM CDT [employer] DO HEMATOLOGY ORDERABLES Edited Performing Organization Address City/State/[facility] Co de Phone Number INTERFACE SYSTEM Refer [...] DO CHEMISTRY ORDERABLES Edited Performing Organization Address City/[facility] de Phone Number INTERFACE SYSTEM Refer to clinic/hospital department * (ABNORMAL) CK TOTAL, RELATIVE INDEX (01/12/2007 6:55 PM CDT) CK-MB CHEMICAL INDEX 4.6(H) 0.0 - 4.5 INTERFACE SYSTEM 01/12/2007 6:55 PM CDT us Gracia Hayes MD CHEMISTRY ORDERABLES Edite d Performing Organization Address [facility] Phone Number INTERFACE SYSTEM Refer to clinic/hospital department * (ABNORMAL) CK (01/12/2007 6:55 PM CDT) CK 396(H) 26 - 140 U/L INTERFACE SYSTEM Comment: As of 05 the [facility] has changed testing methods. The new reference ranges are Males 38-174 Females 26-140 The old referance ranges were Males 0-155 Females 0-133 01/12/2007 6:55 PM CDT us Gracia Hayes MD CHEMISTRY ORDERABLES Edite d Performing Organization Address [facility] Phone Number INTERFACE SYSTEM Refer to clinic/hospital department * (ABNORMAL) CARDIAC ENZYMES (01/12/2007 6:55 PM CDT) TROPONIN I 0.6 0.0 - 1.5 ng/mL INTERFACE SYSTEM CKMB 18.1(H) 0.0 - 5.0 ng/mL INTERFACE SYSTEM 01/12/2007 6:55 PM CDT us Gracia Hayes MD CHEMISTRY ORDERABLES Edite d Performing Organization Address [facility] Phone Number INTERFACE SYSTEM Refer to [...] Goal INR 3.0; range 2.5 - 3.5 POST-ID Goal INR 2.5; range 2.0 - 3.0 [...] DO HEMATOLOGY ORDERABLES Edited Performing Organization Address [facility] Phone Number INTERFACE SYSTEM Refer to [...] DO URINE ORDERABLES Edited Performing Organization Address [facility] Phone Number INTERFACE SYSTEM Refer to [...] DO URINE ORDERABLES Edited Performing Organization Address [facility] de Phone Number INTERFACE SYSTEM [...] APTT Normal Range. 01/12/2007 3:58 PM CDT [facility] Esvin Gregory HEMATOLOGY ORDERABLES Edited Performing Organization Address [facility] de Phone Number INTERFACE SYSTEM [...] Goal INR 3.0; range 2.5 - 3.5 POST-ID Goal INR 2.5; range 2.0 - 3.0 or Goal 3.0; range 2.5 - 3.5 Atrial Fibrillation Goal INR 2.5; range 2.0 - 3.0 Ischemic Stroke Goal INR 2.5; range 2.0 - 3.0 For additional information see Guidelines for Anticoagulation available from the pharmacy Johanny Frank. 01/12/2007 3:58 PM CDT [facility] Esvin Gregory HEMATOLOGY ORDERABLES Edited Performing Organization Address [facility] de Phone Number INTERFACE SYSTEM [...] DO CHEMISTRY ORDERABLES Edited Performing Organization Address City/[facility] de Phone Number INTERFACE SYSTEM [...] Goal INR 3.0; range 2.5 - 3.5 POST-ID Goal INR 2.5; range 2.0 - 3.0 [...] DO HEMATOLOGY ORDERABLES Edited Performing Organization Address [facility] Co de Phone Number INTERFACE SYSTEM Refer [...] INTERF KRAIG SYSTEM 01/12/2007 2:34 PM CDT [employer] HEMATOLOGY ORDERABLES COM Edit ed INTERFACE SYSTEM [...] Fl INTERFACE SYSTEM 01/12/2007 2:34 PM CDT [employer] HEMATOLOGY ORDERABLES Edited Performing Organization Address City/[facility]/ZIP Co de Phone Number INTERFACE SYSTEM Refer to clinic/hospital department * XR FOOT 3+ VW LEFT (01/12/2007 11:26 AM CDT) Anatomical Region Laterality Modality Ankle / Foot Other 01/12/2007 11:2 6 AM CDT Narrative 01/12/2007 11:26 AM CDT Exam: Foot - Left ([id number])Date/Time of Exam: Jan 15, 2007 12:05:13 PMIndication: [...] Procedure Note 08/13/2009 Exam: Foot - Left ([id number])Date/Time of Exam: Jan 15, 2007 12:05:13 PMIndication: [...] 11:26 AM CDT Exam: Chest - Portable ([id number])Date/Time of Exam: Jan 13, 2007 3:58:28 AMIndication: [...] Procedure Note 08/13/2009 Exam: Chest - Portable ([id number])Date/Time of Exam: Jan 13, 2007 3:58:28 AMIndication: [...] Seth Pepe M.D. Date Signed: 01/12/07 Adeel Jeknins DO DIAGNOSTIC IMAGING ORDERABLES Final Result * [...] 11:26 AM CDT EXAM: CHEST - PORTABLE ([id number])DATE/TIME OF EXAM: January 12, 2007 11:20:03 AMINDICATION: [...] Procedure Note 08/13/2009 EXAM: CHEST - PORTABLE ([id number])DATE/TIME OF EXAM: January 12, 2007 11:20:03 AMINDICATION: [...] CHEMISTRY ORDERABLES Edite d Performing Organization Address City/[facility] Co de Phone Number INTERFACE SYSTEM Refer [...] Goal INR 3.0; range 2.5 - 3.5 POST-ID Goal INR 2.5; range 2.0 - 3.0 [...] HEMATOLOGY ORDERABLES Edit ed Performing Organization Address City/[facility] de Phone Number INTERFACE SYSTEM [...] EOSINOPHILS 0.3 0.0 - 7.0 % INTERF KRAIG SYSTEM [...] POC CREATININE (01/12/2007 11:01 AM CDT) Pathologist [facility] CREATININE POC 1.2 0.7 - 1.2 mg/dL [...] OF CARE TESTING Edited Performing Organization Address City/State/[facility] Co de Phone Number INTERFACE SYSTEM Refer to clinic/hospital department documented in this encounter Visit Diagnoses Diagnosis Poisoning by anticoagulants(964.2)- Primary Poisoning by anticoagulants documented in this encounter Care Teams Burrer Machine Relationship Specialty Start Date End Date Charles Delgadillo MD [address] [place] [phone] PCP - General Family Practice 09/05/10 documented as of this encounter
--- OUTSIDE RECORDS SUMMARY | 2025-09-20 14:42 | XMS_ITS | Encounter Summary ---
Author Organization [facility] Address [address] [place] [address] Care Team Providers Care Retort Forker Name Role Phone Charles Delgadillo MD Primary Care Provider [phone] Encounter Details Date Type Department Care Team (Latest Contact Info) Description 02/10/2007 Outpatient Historical [facility] General and Trauma Surgery-[address] [place] [address] Adeel Jenkins S, DO [address] [place] [address] Shortness of Breath (Primary Dx); Fever; Candidiasis of Mouth; Nausea with Vomiting Social History Tobacco Use Types Packs/Day Years Used Date Smoking Tobacco: Never Assessed Comments Unknown Sex and Gender Information Value Date Recorded Sex Assigned at Not on file Legal Sex Female 5: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
--- OUTSIDE RECORDS SUMMARY | 2025-09-20 14:42 | XMS_ITS | Encounter Summary ---
Author Organization [facility] Address [address] [place] [address] Care Team Providers Care Utility Forester Name Role Phone Charles Delgadillo MD Primary Care Provider [phone] Encounter Details Date Type Department Care Team (Late st Contact Info) Description 02/10/2007 Inpatient Historical [facility] Adeel Jenkins, DO [address] [place], [place] [id number] Peritoneal Abscess (CMS/HCC) (Primary Dx) Social History Tobacco Use Types Packs/Day Years Used Date Smoking Tobacco: Never Assessed Comments Unknown Sex and Gender Information Value Date Recorded Sex Assigned at Not on file Legal Sex Female 5:59 AM SAMPLE MOUNTER Gender Identity Not on file Sexual Orientation [...] Goal INR 3.0; range 2.5 - 3.5 POST-CA Goal INR 2.5; range 2.0 - 3.0 [...] mOsm/Kg INTERFACE SYSTEM 02/10/2007 2:17 PM [facility]T [facility] CHEMISTRY ORDERABLES Edited Performing Organization Address [facility] Phone Number INTERFACE SYSTEM Refer to [...] E SYSTEM 02/10/2007 2:17 PM CDT Result [facility] Adeel Jenkins DO HEMATOLOGY ORDERABLES COM Edit ed Performing Organization Address [facility] Phone Number INTERFACE SYSTEM Refer to [...] abscess documented in this encounter Care Teams Utility Forester Relationship Specialty Start Date End Date Charles Delgadillo MD [address] [place] [address] PCP - General Family Practice 09/05/10 documented as of this encounter
--- OUTSIDE RECORDS SUMMARY | 2025-09-20 14:42 | XMS_ITS | Encounter Summary ---
Author Organization [facility] [employer] [facility] Address [address] [place] [address] Care Team Providers Care Manager Human Capital Name Role Phone Charles Delgadillo MD Primary Care Provider [phone] Encounter Details Date Type Department Care Team (Latest Contact Info) Description 01/12/2007 Outpatient Historical [facility] [address] [place] [address] [place] [address] [facility] Syncope and Collapse (Primary Dx) Social History Tobacco Use Types Packs/Day Years Used Date Smoking Tobacco: Never Assessed Comments Unknown Sex and Gender Information Value Date Recorded Sex Assigned at Not on file Legal Sex Female 5:59 AM SPOT CLEANER Gender Identity Not on file Sexual Orientation Not on file documented as of this encounter Plan of Treatment Not on file documented as of this encounter Visit Diagnoses Diagnosis Syncope and collapse- Primary documented in this encounter Care Teams Manager Human Capital Relationship Specialty Start Date End Date Charles Delgadillo MD [address] [place] [address] PCP - General Family Practice 09/05/10 documented as of this encounter
--- OUTSIDE RECORDS SUMMARY | 2025-09-20 14:43 | XMS_ITS | Encounter Summary ---
Author Organization [facility] Address [address] [place] [address] Care Team Providers Care Hoop Coiler Name Role Phone Charles Delgadillo MD Primary Care Provider Encounter Details Date Type Department Care Team (Late st Contact Info) Description 03/31/2007 Outpatient Historical [facility] General and Trauma Surgery-[address] [place] [address] Andrew Richards MD [address] [facility] [address] [place] [address] Follow-Up Examination, Following Unspecified Surgery (Primary Dx) Social History Tobacco Use Types Packs/Day Years Used Date Smoking Tobacco: Never Assessed Comments Unknown Sex and Gender Information Value Date Recorded Sex Assigned at Not on file Legal Sex Female 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
--- OUTSIDE RECORDS SUMMARY | 2025-09-20 14:43 | XMS_ITS | Encounter Summary ---
Author Organization [facility] Address [address] [place] [address] Care Team Providers Care Food Order Delivery Runner Name Role Phone Charles Delgadillo MD Primary Care Provider [phone] Encounter Details Date Type Department Care Team (Late st Contact Info) Description 12/14/2008 Ancillary Orders [facility] [address] 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
--- OUTSIDE RECORDS SUMMARY | 2025-09-20 14:43 | XMS_ITS | Encounter Summary ---
Author Organization [facility] Address [address] [place] [address] Care Team Providers Care Manager Report Name Role Phone Charles Delgadillo MD Primary Care Provider [phone] Encounter Details Date Type Department Care Team (Late st Contact Info) Description 09/30/[address] [facility] [address] [place] [address] [place] [address] Fernando Jay, Paul Swain MD [address] [place] [address] Social History Tobacco Use Types Packs/Day Years Used Date Smoking Tobacco: Never Alcohol Use Standard Drinks/Week Comments No 0 (1 standard drink = 0.6 oz pur e alcohol) Comments No Sex and Gender Information Value Date Recorded Sex Assigned at Not on file Legal Sex Female 5:59 AM SEMICONDUCTOR WAFER INSPECTOR Gender Identity Not on file Sexual Orientation Not on file 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 Not on file Not on file disabled Not on file Not on file Not on file documented as of this encounter Plan of Treatment Not on file documented as of this encounter Procedures Procedure Name Priority Date/Time Associated Diagnosis Comments DIFFERENTIAL, MANUAL Stat 09/30/2008 4:37 PM SEMICONDUCTOR WAFER INSPECTOR CBC WITH DIFFERENTIAL Stat 09/30/2008 4:37 PM SEMICONDUCTOR WAFER INSPECTOR COMPREHENSIVE METABOLIC PANEL Stat 09/30/2008 4:37 PM SEMICONDUCTOR WAFER INSPECTOR documented in this encounter Results * (ABNORMAL) DIFFERENTIAL, MANUAL (09/30/2008 4:37 PM SEMICONDUCTOR WAFER INSPECTOR) Pathologist [facility] ANISOCYTOSIS 1+(A) None Seen [facility] LYMPHOCYTES 38 24 - 44 % [facility] PLATELET EST. Increased (A) Normal [facility] MONOCYTE 10 4 - 10 % [facility] NEUTROPHILS, SEG 48 36 - 66 % [facility] RBC MORPHOLOGY Abnormal( A) Normal [facility] EOSINOPHILS 4(H) 0 - 3 % [facility] Blood specimen (specimen) 09/30/2008 4:37 PM SEMICONDUCTOR WAFER INSPECTOR 09/30/2008 5:01 PM SEMICONDUCTOR WAFER INSPECTOR Narrative INTERFACE SYSTEM - 09/30/2008 5:21 PM SEMICONDUCTOR WAFER INSPECTOR Differential ordered by policy. Paul King Jr., MD HEMATOLOGY ORDERABLES C OM Final Result INTERFACE SYSTEM Refer to clinic/hospital department [facility] CLIA# [id number] [address] [place] [address] * (ABNORMAL) CBC WITH DIFFERENTIAL (09/30/2008 4:37 PM SEMICONDUCTOR WAFER INSPECTOR) Pathologist [facility] MPV 10.2 8.9 - 12.8 Fl [facility] MCV 90.3 84.0 - 103.0 Fl [facility] HEMOGLOBIN 13.8 12.0 - 16.0 g/dL [facility] RDW 14.5 11.0 - 14.5 % [facility] WBC 16.6(H) 4.8 - 10.8 K/ul [facility] MCH 29.9 27.0 - 34.0 pg [facility] HEMATOCRIT 41.7 36.0 - 46.0 % [facility] PLATELETS 521(H) 140 - 440 K/ul [facility] RBC 4.62 4.20 - 5.40 Mil/ul [facility] MCHC 33.1 30.0 - 35.0 g/dL [facility] Blood specimen (specimen) 09/30/2008 4:37 PM SEMICONDUCTOR WAFER INSPECTOR 09/30/2008 5:01 PM SEMICONDUCTOR WAFER INSPECTOR us Paul King Jr., MD HEMATOLOGY ORDERABLES E dited INTERFACE SYSTEM Refer to clinic/hospital department [facility] CLIA# [id number] [address] [place] [address] * (ABNORMAL) COMPREHENSIVE METABOLIC PANEL (09/30/2008 4:37 PM SEMICONDUCTOR WAFER INSPECTOR) ALBUMIN 4.7 3.5 - 5.0 g/dL [facility] POTASSIUM 4.0 3.5 - 5.0 mEq/L [facility] GLOBULIN (CALC) 2.6 2.4 - 3.9 g/dL [facility] CREATININE 1.2 0.7 - 1.2 mg/dL [facility] CALCIUM 9.6 8.4 - 10.5 mg/dL [facility] OSMOLALITY, CALCULATED 300(H) 275 - 295 mOsm/Kg [facility] ALT 49(H) 4 - 36 IU/L [facility] GLUCOSE 97 70 - 110 mg/dL [facility] CHLORIDE 110 95 - 110 mEq/L [facility] ALBUMIN/GLOBULIN RATIO 1.8 1.0 - 2.3 [facility] ALKALINE PHOSPHATASE 102(H) 25 - 100 U/L [facility] SODIUM 144 136 - 145 mEq/L [facility] BILIRUBIN TOTAL 0.2(L) 0.3 - 1.2 mg/dL [facility] TOTAL PROTEIN 7.3 6.3 - 8.2 g/dL [facility] BUN 25(H) 7 - 17 mg/dL [facility] AST 37(H) 8 - 33 U/L [facility] CO2 26 22 - 32 mmol/l [facility] ANION GAP 12 9 - 20 mEq/L [facility] Blood specimen (specimen) 09/30/2008 4:37 PM SEMICONDUCTOR WAFER INSPECTOR 09/30/2008 5:01 PM SEMICONDUCTOR WAFER INSPECTOR us Paul King Jr., MD CHEMISTRY ORDERABLES Fi nal Result INTERFACE SYSTEM Refer to clinic/hospital department [facility] CLIA# [id number] [facility] [place] [address] documented in this encounter Visit Diagnoses Not on filedocumented in this encounter Care Teams Manager Report Relationship Specialty Start Date End Date Charles Delgadillo MD [address] [place] [address] PCP - General Family Practice 09/05/10 documented as of this encounter
--- OUTSIDE RECORDS SUMMARY | 2025-09-20 14:43 | XMS_ITS | Encounter Summary ---
Author Organization [facility] Address [address] 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
--- OUTSIDE RECORDS SUMMARY | 2025-09-20 14:43 | XMS_ITS | Encounter Summary ---
Author Organization [facility] Address [address] [place] [address] Care Team Providers Care Phlebotomy Director Name Role Phone Charles Delgadillo MD Primary Care Provider [phone] Encounter Details Date Type Department Care Team (Latest Contact Info) Description 08/22/1999 Outpatient [facility] [place] [address] [facility] [address] [place] [address] Thomas Anne MD [address] [address] Acute sinusitis, unspecified (Primary Dx); Hypopotassemia Social History Tobacco Use Types Packs/Day Years Used Date Smoking Tobacco: Never Assessed Comments Unknown Sex and Gender Information Value Date Recorded Sex Assigned at Not on file Legal Sex Female 5:59 AM 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
--- OUTSIDE RECORDS SUMMARY | 2025-09-20 14:43 | XMS_ITS | Encounter Summary ---
Author Organization [facility] Address [address] [place] [address] Care Team Providers Care Machinist Helper Marine Name Role Phone Charles Delgadillo MD Primary Care Provider [phone] Encounter Details Date Type Department Care Team (Latest Contact Info) Description 04/08/2008 [facility] [facility] [address] [place] [address] Roz Capellan MD [address] [place] [phone] Other Screening Mammogram Social History Tobacco Use Types Packs/Day Years Used Date Smoking Tobacco: Never Assessed Comments No Sex and Gender Information Value Date Recorded Sex Assigned at Not on file Legal Sex Female 5:59 AM TELEPHONE APPOINTMENT CLERK Gender Identity Not on file Sexual Orientation Not on file documented as of this encounter Plan of Treatment Not on file documented as of this encounter Visit Diagnoses Diagnosis Other screening mammogram documented in this encounter Care Teams Machinist Helper Marine Relationship Specialty Start Date End Date Charles Delgadillo MD [address] [place] [address] PCP - General Family Practice 09/05/10 documented as of this encounter
--- OUTSIDE RECORDS SUMMARY | 2025-09-20 14:43 | XMS_ITS | Encounter Summary ---
Author Organization [facility] Address [address] [place] [address] Care Team Providers Care Surveillance Camera Technician Name Role Phone Charles Delgadillo MD Primary Care Provider [phone] Encounter Details Date Type Department Care Team (Late st Contact Info) Description 10/09/2007 Outpatient Historical [facility] Medicine [address] [phone] Roz Capellan MD [address] [place] [phone] Social History Tobacco Use Types Packs/Day Years Used Date Smoking Tobacco: Never Assessed Comments Unknown Sex and Gender Information Value Date Recorded Sex Assigned at Not on file Legal Sex Female 5:59 AM SCIENTIFIC ASSOCIATE Gender Identity Not on file Sexual [...] to change her hydrocodone acetaminophen mix to [place] 10/325 half atablet every 4 hours for [...] in three months' time. Roz Capellan M.D. [facility] Electronically Signed by Roz Capellan M.D. 10/22/2007 14:25 , airn Charles Document #: [id number] cc: NTIFIC ASSOCIATE documented in this encounter Plan of Treatment Not on file documented as of this encounter Visit Diagnoses Not on filedocumented in this encounter Care Teams Surveillance Camera Technician Relationship Specialty Start Date End Date Charles Delgadillo MD [address], [place] [address] PCP - General Family Practice 09/05/10 documented as of this encounter
--- OUTSIDE RECORDS SUMMARY | 2025-09-20 14:43 | XMS_ITS | Encounter Summary ---
Author Organization [facility] Address [address] [place] [address] Care Team Providers Care Spot Welder Line Name Role Phone Charles Delgadillo MD Primary Care Provider Encounter Details Date Type Department Care Team (Late st Contact Info) Description 03/23/2008 Outpatient Historical [facility] [address] [place] [phone] Vasiliy Xiao MD [address] [phone] Social History Tobacco Use Types Packs/Day Years Used Date Smoking Tobacco: Never Assessed Comments No Sex and Gender Information Value Date Recorded Sex Assigned at Not on file Legal Sex Female 5:59 AM TUNA PURSE SEINER Gender Identity Not on file Sexual Orientation Not on file documented as of this encounter Plan of Treatment Not on file documented as of this encounter Visit Diagnoses Not on filedocumented in this encounter Care Teams Spot Welder Line Relationship Specialty Start Date End Date Charles Delgadillo MD [address] [place] [address] PCP - General Family Practice 09/05/10 documented as of this encounter
--- OUTSIDE RECORDS SUMMARY | 2025-09-20 14:43 | XMS_ITS | Encounter Summary ---
Author Organization [facility] Address [address] [place] [address] Care Team Providers Care Bosom Presser Name Role Phone Charles Delgadillo MD Primary Care Provider [phone] Encounter Details Date Type Department Care Team (Late st Contact Info) Description 10/22/2007 Outpatient Historical [facility] [address] [place] [phone] Antonio Lopez MD [address] [place] [address] Social History Tobacco Use Types Packs/Day Years Used Date Smoking Tobacco: Never Assessed Comments Unknown Sex and Gender Information Value Date Recorded Sex Assigned at Not on file Legal Sex Female 5:59 AM CUSTOM APPLICATOR Gender Identity Not on file Sexual Orientation Not on file documented as of this encounter Plan of Treatment Not on file documented as of this encounter Visit Diagnoses Not on filedocumented in this encounter Care Teams Bosom Presser Relationship Specialty Start Date End Date Charles Delgadillo MD [address], [place] [address] PCP - General Family Practice 09/05/10 documented as of this encounter
--- OUTSIDE RECORDS SUMMARY | 2025-09-20 14:43 | XMS_ITS | Encounter Summary ---
Author Organization [facility] Address [address] [place] [address] Care Team Providers Care Rental Sales Associate Name Role Phone Charles Delgadillo MD Primary Care Provider [phone] Encounter Details Date Type Department Care Team (Latest Contact Info) Description 04/29/2007 Outpatient Historical [facility] Orthopedic Sports Medicine[facility] [address] [place] [address] Melvin Nunez MD NO ADDRESS ON FILE Unspecified Site of Ankle Sprain and Strain (Primary Dx) Social History Tobacco Use Types Packs/Day Years Used Date Smoking Tobacco: Never Assessed Comments Unknown Sex and Gender Information Value Date Recorded Sex Assigned at Not on file Legal Sex Female 5:59 AM HAT AND CAP OPENER Gender Identity Not on file Sexual Orientation Not on file documented as of this encounter Plan of Treatment Not on file documented as of this encounter Visit Diagnoses Diagnosis Sprain of ankle, unspecified site- Primary documented in this encounter Care Teams Rental Sales Associate Relationship Specialty Start Date End Date Charles Delgadillo MD [address] [address] PCP - General Family Practice 09/05/10 documented as of this encounter
--- OUTSIDE RECORDS SUMMARY | 2025-09-20 14:43 | XMS_ITS | Encounter Summary ---
Author Organization [facility] Address [address] [place] [address] Care Team Providers Care Airline Captain Name Role Phone Charles Delgadillo MD Primary Care Provider [phone] Encounter Details Date Type Department Care Team (Late st Contact Info) Description 03/04/2008 Outpatient Historical [facility] Vasiliy Xiao MD [address] [phone] Social History Tobacco Use Types Packs/Day Years Used Date Smoking Tobacco: Never Assessed Comments No Sex and Gender Information Value Date Recorded Sex Assigned at Not on file Legal Sex Female 5:59 AM PONY ROUGHER Gender Identity Not on file Sexual Orientation Not on file documented as of this encounter Plan of Treatment Not on file documented as of this encounter Visit Diagnoses Not on filedocumented in this encounter Care Teams Airline Captain Relationship Specialty Start Date End Date Charles Delgadillo MD [address] [place] [address] PCP - General Family Practice 09/05/10 documented as of this encounter
--- OUTSIDE RECORDS SUMMARY | 2025-09-20 14:43 | XMS_ITS | Encounter Summary ---
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
--- OUTSIDE RECORDS SUMMARY | 2025-09-20 14:43 | XMS_ITS | Encounter Summary ---
Author Organization [facility] Address [address] [place] [address] Care Team Providers Care Blanket Folder Name Role Phone Charles Delgadillo MD Primary Care Provider [phone] Encounter Details Date Type Department Care Team (Late st Contact Info) Description 02/06/2010 Ancillary Orders [facility] Imaging External Read [address] [place] [phone] Roz Capellan MD [address] [place] [address] Screening Mammogram Social History Tobacco Use Types Packs/Day Years Used Date Smoking Tobacco: Never Alcohol Use Standard Drinks/Week Comments No 0 (1 standard drink = 0.6 oz pur e alcohol) Comments No Sex and Gender Information Value Date Recorded Sex Assigned at Not on file Legal Sex Female 5:59 AM TUBE WRAPPER Gender Identity Not on file Sexual Orientation Not on file 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
--- OUTSIDE RECORDS SUMMARY | 2025-09-20 14:43 | XMS_ITS | Encounter Summary ---
Author Organization [employer] [facility] Address [address] [place] [address] Care Team Providers Care Internet Sourcer Name Role Phone Charles Delgadillo MD Primary Care Provider [phone] Encounter Details Date Type Department Care Team [...] on file Legal Sex Female 5:59 AM MECHANICAL SUPERVISOR Gender Identity Not on file Sexual Orientation Not on file documented as of this encounter Plan of Treatment Not on file documented as of this encounter Visit Diagnoses Diagnosis Chondromalacia- Primary Follow-up examination following surgery documented in this encounter Care Teams Internet Sourcer Relationship Specialty Start Date End Date Charles Delgadillo MD [address] [place] [address] PCP - General Family Practice 09/05/10 documented as of this encounter
--- OUTSIDE RECORDS SUMMARY | 2025-09-20 14:43 | XMS_ITS | Encounter Summary ---
Author Organization [facility] Address [address] [place] [address] Care Team Providers Care Collections Rep Name Role Phone Charles Delgadillo MD Primary Care Provider [phone] Encounter Details Date Type Department Care Team (Latest Contact Info) Description 03/12/2007 Outpatient Historical [facility] General and Trauma Surgery-[address] [place] [address] Graham [place] MD [address] [place] [address] Follow-Up Examination, Following Unspecified Surgery (Primary Dx) Social History Tobacco Use Types Packs/Day Years Used Date Smoking Tobacco: Never Assessed Comments Unknown Sex and Gender Information Value Date Recorded Sex Assigned at Not on file Legal Sex Female 5:59 AM AUTOTRANSFUSIONIST Gender Identity Not on file Sexual Orientation Not on file documented as of this encounter Plan of Treatment Not on file documented as of this encounter Visit Diagnoses Diagnosis Follow-up examination, following unspecified surgery- Primary documented in this encounter Care Teams Collections Rep Relationship Specialty Start Date End Date Charles Delgadillo MD [address], [place] [address] PCP - General Family Practice 12/14/10 documented as of this encounter
--- OUTSIDE RECORDS SUMMARY | 2025-09-20 14:43 | XMS_ITS | Encounter Summary ---
Author Organization [facility] Address [address] [place] [address] Care Team Providers Care Learning Officer Name Role Phone Charles Delgadillo MD Primary Care Provider [phone] Encounter Details Date Type Department Care Team (Latest Contact Info) Description 01/30/1999 Outpatient [facility] Family Medicine [place] [address] [facility] [address] [place] [address] Thomas Anne MD [address] [address] Allergy, unspecified not elsewhere classified (Primary Dx) Social History Tobacco Use Types Packs/Day Years Used Date Smoking Tobacco: Never Assessed Comments Unknown Sex and Gender Information Value Date Recorded Sex Assigned at Not on file Legal Sex Female 5:59 AM 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
--- OUTSIDE RECORDS SUMMARY | 2025-09-20 14:43 | XMS_ITS | Encounter Summary ---
Author Organization [facility] Address [address] [place] [address] Care Team Providers Care Insurance Coordinator Name Role Phone Charles Delgadillo MD Primary Care Provider [phone] Encounter Details Date Type Department Care Team (Latest Contact Info) Description 11/18/1998 Outpatient Historical [facility] Olu Pineda Jr., MD [facility] [place] [address] Dietary surveil/vocational rehabilitation counselor (Primary Dx) Social History Tobacco Use Types Packs/Day Years Used Date Smoking Tobacco: Never Assessed Comments Unknown Sex and Gender Information Value Date Recorded Sex Assigned at Not on file Legal Sex Female 5:59 AM METHODOLOGIST Gender Identity Not on file Sexual Orientation Not on file documented as of this encounter Plan of Treatment Not on file documented as of this encounter Visit Diagnoses Diagnosis Dietary surveil/vocational rehabilitation counselor- Primary Dietary surveillance and counseling documented in this encounter Care Teams Insurance Coordinator Relationship Specialty Start Date End Date Charles Delgadillo MD [address] [place] [address] PCP - General Family Practice 09/05/10 documented as of this encounter
--- OUTSIDE RECORDS SUMMARY | 2025-09-20 14:43 | XMS_ITS | Encounter Summary ---
Author Organization [employer] [facility] Address [address] [place] [address] Care Team Providers Care Business Strategist Name Role Phone Charles Delgadillo MD Primary Care Provider [phone] Encounter Details Date Type Department Care Team [...] on file Legal Sex Female 5:59 AM FINANCIAL ACCOUNTANT Gender Identity Not on file Sexual Orientation Not on file documented as of this encounter Plan of Treatment Not on file documented as of this encounter Visit Diagnoses Diagnosis Other joint derangement, not elsewhere classified, shoulder region- Primary documented in this encounter Care Teams Business Strategist Relationship Specialty Start Date End Date Charles Delgadillo MD [address] [place] [address] PCP - General Family Practice 09/05/10 documented as of this encounter
--- OUTSIDE RECORDS SUMMARY | 2025-09-20 14:43 | XMS_ITS | Encounter Summary ---
Author Organization [facility] Address [address] [place] [address] Care Team Providers Care Driver Wheelchair Name Role Phone Charles Delgadillo MD Primary Care Provider Encounter Details Date Type Department Care Team (Late st Contact Info) Description 02/20/2007 Outpatient Historical [facility] General and Trauma Surgery-[address] [place] [address] Andrew Richards MD [address] [facility] [address] [place] [address] Follow-Up Examination, Following Unspecified Surgery (Primary Dx) Social History Tobacco Use Types Packs/Day Years Used Date Smoking Tobacco: Never Assessed Comments Unknown Sex and Gender Information Value Date Recorded Sex Assigned at Not on file Legal Sex Female 5:59 AM GASTROINTESTINAL TECHNICIAN Gender Identity Not on file Sexual Orientation Not on file documented as of this encounter Plan of Treatment Not on file documented as of this encounter Visit Diagnoses Diagnosis Follow-up examination, following unspecified surgery- Primary documented in this encounter Care Teams Driver Wheelchair Relationship Specialty Start Date End Date Charles Delgadillo MD [address] [place] [address] PCP - General Family Practice 09/05/10 documented as of this encounter
--- OUTSIDE RECORDS SUMMARY | 2025-09-20 14:43 | XMS_ITS | Encounter Summary ---
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) Social History Tobacco Use Types Packs/Day Years Used Date Smoking Tobacco: Never Assessed Comments Unknown Sex and Gender Information Value Date Recorded Sex Assigned at Not on file Legal Sex Female 5:59 AM PHYSICAL INSTRUCTOR Gender Identity Not on file Sexual Orientation Not on file documented as of this encounter Plan of Treatment Not on file documented as of this encounter Visit Diagnoses Diagnosis Unspecified cerebral artery occlusion with cerebral infarction- Primary documented in this encounter Care Teams Rotary Operator Relationship Specialty Start Date End Date Charles Delgadillo MD [address] [address] PCP - General Family Practice 09/05/10 documented as of this encounter
--- OUTSIDE RECORDS SUMMARY | 2025-09-20 14:43 | XMS_ITS | Encounter Summary ---
Author Organization [facility] Address [address] [place] [address] Care Team Providers Care Genetic Technologist Name Role Phone Charles Delgadillo MD Primary Care Provider [phone] Encounter Details Date Type Department Care Team (Latest Contact Info) Description 12/31/2007 Outpatient [facility] [address] [facility] [address] [place] [address] Antonio Lopez MD [address] [place] [address] Personal History of Venous Thrombosis and Embolism; [...] on file Legal Sex Female 5:59 AM CLINICAL NEUROPSYCHOLOGIST Gender Identity Not on file Sexual Orientation [...] sulfonamides documented in this encounter Care Teams Genetic Technologist Relationship Specialty Start Date End Date Charles Delgadillo MD [address] [place] [address] PCP - General Family Practice 09/05/10 documented as of this encounter
--- OUTSIDE RECORDS SUMMARY | 2025-09-20 14:43 | XMS_ITS | Encounter Summary ---
Author Organization [facility] Address [address] [place] [address] Care Team Providers Care Dye Machine Operator Name Role Phone Charles Delgadillo MD Primary Care Provider Encounter Details Date Type Department Care Team (Latest Contact Info) Description 07/07/1999 Outpatient Historical [facility] Medicine [address] [phone] Jameel Rodriguez DO NO ADDRESS ON FILE Need vaccination-viral disease (Primary Dx) Social History Tobacco Use Types Packs/Day Years Used Date Smoking Tobacco: Never Assessed Comments Unknown Sex and Gender Information Value Date Recorded Sex Assigned at Not on file Legal Sex Female 5:59 AM CORPORATE INVESTIGATOR Gender Identity Not on file Sexual Orientation Not on file documented as of this encounter Plan of Treatment Not on file documented as of this encounter Visit Diagnoses Diagnosis Need vaccination-viral disease- Primary Need for prophylactic vaccination and inoculation against other viral diseases documented in this encounter Care Teams Dye Machine Operator Relationship Specialty Start Date End Date Charles Delgadillo MD [address] [place] [address] PCP - General Family Practice 09/05/10 documented as of this encounter
--- OUTSIDE RECORDS SUMMARY | 2025-09-20 14:43 | XMS_ITS | Encounter Summary ---
Author Organization [facility] Address [address] [place] [address] Care Team Providers Care Rn Diabetes Name Role Phone Charles Delgadillo MD Primary Care Provider [phone] Encounter Details Date Type Department Care Team (Latest Contact Info) Description 03/04/1998 Outpatient Historical [facility] Rheumatology- [facility] [address] [place] [phone] Myalgia and myositis, unspecified (Primary Dx); Pain in joint, shoulder region Social History Tobacco Use Types Packs/Day Years Used Date Smoking Tobacco: Never Assessed Comments Unknown Sex and Gender Information Value Date Recorded Sex Assigned at Not on file Legal Sex Female 5:59 AM HORSE RACE TIMER Gender Identity Not on file Sexual Orientation Not on file documented as of this encounter Plan of Treatment Not on file documented as of this encounter Visit Diagnoses Diagnosis Myalgia and myositis, unspecified- Primary Mylagia and myositis, unspecified Pain in joint, shoulder region documented in this encounter Care Teams Rn Diabetes Relationship Specialty Start Date End Date Charles Delgadillo MD [address] [place] [address] PCP - General Family Practice 09/05/10 documented as of this encounter
--- OUTSIDE RECORDS SUMMARY | 2025-09-20 14:43 | XMS_ITS | Encounter Summary ---
Author Organization [facility] Address [address] [place] [address] Care Team Providers Care Radiologist Chief Of Breast Imaging Name Role Phone Charles Delgadillo MD Primary Care Provider [phone] Encounter Details Date Type Department Care Team (Latest Contact Info) Description 04/16/2007 Outpatient Historical [facility] [address] [place] [address] Danial Hill, PAEdelC NO ADDRESS [...] on file Legal Sex Female 5:59 AM DIVER ASSISTANT Gender Identity Not on file Sexual Orientation Not on file documented as of this encounter Plan of Treatment Not on file documented as of this encounter Visit Diagnoses Diagnosis Degeneration of lumbar or lumbosacral intervertebral disc- Primary Pain in joint, ankle and foot Stiffness of joint, not elsewhere classified, lower leg documented in this encounter Care Teams Radiologist Chief Of Breast Imaging Relationship Specialty Start Date End Date Charles Delgadillo MD [address] [place] [address] PCP - General Family Practice 09/05/10 documented as of this encounter
--- OUTSIDE RECORDS SUMMARY | 2025-09-20 14:43 | XMS_ITS | Encounter Summary ---
Author Organization [facility] Address [address] [place] [address] Care Team Providers Care Remanufacturing Technician Name Role Phone Charles Delgadillo MD Primary Care Provider Encounter Details Date Type Department Care Team (Late st Contact Info) Description 07/15/2007 Outpatient Historical [facility] [address] [place] [phone] Social History Tobacco Use Types Packs/Day Years Used Date Smoking Tobacco: Never Assessed Comments Unknown Sex and Gender Information Value Date Recorded Sex Assigned at Not on file Legal Sex Female 5:59 AM MEMBER SERVICE REPRESENTATIVE Gender Identity Not on file Sexual Orientation Not on file documented as of this encounter Plan of Treatment Not on file documented as of this encounter Visit Diagnoses Not on filedocumented in this encounter Care Teams Remanufacturing Technician Relationship Specialty Start Date End Date Charles Delgadillo MD [address], [place] [address] PCP - General Family Practice 09/05/10 documented as of this encounter
--- OUTSIDE RECORDS SUMMARY | 2025-09-20 14:43 | XMS_ITS | Encounter Summary ---
Author Organization [facility] Address [address] [place] [address] Care Team Providers Care Tie Man Name Role Phone Charles Delgadillo MD Primary Care Provider [phone] Encounter Details Date Type Department Care Team (Latest Contact Info) Description 12/12/1998 Outpatient [facility] Family Medicine [place] [address] [place] [address] Thomas Anne MD [address] [address] Unspecified essential hypertension (Primary Dx); Acute upper respiratory infections of unspecified site Social History Tobacco Use Types Packs/Day Years Used Date Smoking Tobacco: Never Assessed Comments Unknown Sex and Gender Information Value Date Recorded Sex Assigned at Not on file Legal Sex Female 5:59 AM DERMATOLOGY PHYSICIAN ASSISTANT Gender Identity Not on file Sexual Orientation Not on file documented as of this encounter Plan of Treatment Not on file documented as of this encounter Visit Diagnoses Diagnosis Unspecified essential hypertension- Primary Acute upper respiratory infections of unspecified site documented in this encounter Care Teams Tie Man Relationship Specialty Start Date End Date Charles Delgadillo MD [address], [place] [phone] PCP - General Family Practice 09/05/10 documented as of this encounter
--- OUTSIDE RECORDS SUMMARY | 2025-09-20 14:43 | XMS_ITS | Encounter Summary ---
Author Organization [facility] Address [address] [place] [address] Care Team Providers Care Refrigerating Technician Name Role Phone Charles Delgadillo MD Primary Care Provider Encounter Details Date Type Department Care Team (Latest Contact Info) Description 04/16/[address] [facility] [place] [address] [address] Antonio Lopez MD [address] [place] [address] Unspecified Backache (Primary Dx) Social History Tobacco Use Types Packs/Day Years Used Date Smoking Tobacco: Never Assessed Comments Unknown Sex and Gender Information Value Date Recorded Sex Assigned at Not on file Legal Sex Female 5:59 AM DIVINE HEALER Gender Identity Not on file Sexual Orientation Not on file documented as of this encounter Plan of Treatment Not on file documented as of this encounter Visit Diagnoses Diagnosis Backache, unspecified- Primary documented in this encounter Care Teams Refrigerating Technician Relationship Specialty Start Date End Date Charles Delgadillo MD [address], [place] [address] PCP - General Family Practice 09/05/10 documented as of this encounter
--- OUTSIDE RECORDS SUMMARY | 2025-09-20 14:43 | XMS_ITS | Encounter Summary ---
Author Organization [facility] Address [address] [place] [address] Care Team Providers Care Sharepoint Solutions Architect Name Role Phone Charles Delgadillo MD Primary Care Provider [phone] Encounter Details Date Type Department Care Team (Late st Contact Info) Description 07/17/1999 Outpatient [facility] [address] [place] [address] Mark Butler DO [address] [facility] [address] [place] [address] Myalgia and myositis, unspecified (Primary Dx); Sleep disturbance, unspecified Social History Tobacco Use Types Packs/Day Years Used Date Smoking Tobacco: Never Assessed Comments Unknown Sex and Gender Information Value Date Recorded Sex Assigned at Not on file Legal Sex Female 5:59 AM SHOT POLISHER AND INSPECTOR Gender Identity Not on file Sexual Orientation Not on file documented as of this encounter Plan of Treatment Not on file documented as of this encounter Visit Diagnoses Diagnosis Myalgia and myositis, unspecified- Primary Mylagia and myositis, unspecified Sleep disturbance, unspecified documented in this encounter Care Teams Sharepoint Solutions Architect Relationship Specialty Start Date End Date Charles Delgadillo MD [address], [place] [phone] PCP - General Family Practice 09/05/10 documented as of this encounter
--- OUTSIDE RECORDS SUMMARY | 2025-09-20 14:43 | XMS_ITS | Encounter Summary ---
Author Organization [employer] [facility] Address [address] [place] [address] Care Team Providers Care Economics Instructor Name Role Phone Charles Delgadillo MD Primary Care Provider [phone] Encounter Details Date Type Department Care Team [...] on file Legal Sex Female 5:59 AM RETORT ENGINEER Gender Identity Not on file Sexual Orientation Not on file documented as of this encounter Plan of Treatment Not on file documented as of this encounter Visit Diagnoses Diagnosis Other joint derangement, not elsewhere classified, lower leg- Primary Cervical spondylosis Cervical spondylosis without myelopathy Follow-up examination following surgery documented in this encounter Care Teams Economics Instructor Relationship Specialty Start Date End Date Charles Delgadillo MD [address] [place] [phone] PCP - General Family Practice 09/05/10 documented as of this encounter
--- OUTSIDE RECORDS SUMMARY | 2025-09-20 14:43 | XMS_ITS | Encounter Summary ---
Author Organization [facility] Address [address] [place] [address] Care Team Providers Care Skilled Helper Name Role Phone Norman Caldera MD Primary Care Provider [phone] Encounter Details Date Type Department Care Team (Late st Contact Info) Description 08/15/2025 Results Follow-Up [facility]- [place] [address] [facility] [address] [place] [address] La Hancock NP [address] [facility] [address] [place] [address] [place] ABDOMEN LIMITED Social History [...] worry about transportation for future doctor visits, oyster picker medication, etc.? No 2024 Housing Stability [...] on file Legal Sex Female 2:09 AM PRESS OFFICER Gender Identity Not on file Sexual Orientation Not on file documented as of this encounter Plan of Treatment Upcoming Encounters Date Type Department Care Team (Late st Contact Info) Description 11/16/2025 11:40 AM PRESS OFFICER Office Visit [facility] Family Medicine [place] [address] [phone] Norman Caldera MD [address] [phone] 02/01/2026 9:30 AM CDT Office Visit [facility]- [place] [address] [place] [address] Deepthi Ray, INSURANCE APPLICATION INVESTIGATOR [address] [facility] [address] [place] [address] documented as of this encounter [...] documented as of this encounter Care Teams Skilled Helper Relationship Specialty Start Date End Date Norman Caldera MD [address] [place] [phone] PCP - General Family Practice 09/06/23 documented as of this encounter
--- OUTSIDE RECORDS SUMMARY | 2025-09-20 14:43 | XMS_ITS | Encounter Summary ---
Author Organization [facility] Address [address] [place] [address] Care Team Providers Care Roll Tender Name Role Phone Charles Delgadillo MD Primary Care Provider [phone] Encounter Details Date Type Department Care Team (Latest Contact Info) Description 12/26/1998 Outpatient [facility] Family Medicine [place] [address] [facility] [address] [place] [address] Thomas Anne MD [address] [address] Unspecified essential hypertension (Primary Dx); Myalgia and myositis, unspecified Social History Tobacco Use Types Packs/Day Years Used Date Smoking Tobacco: Never Assessed Comments Unknown Sex and Gender Information Value Date Recorded Sex Assigned at Not on file Legal Sex Female 5:59 AM TRIM SETTER Gender Identity Not on file Sexual Orientation Not on file documented as of this encounter Plan of Treatment Not on file documented as of this encounter Visit Diagnoses Diagnosis Unspecified essential hypertension- Primary Myalgia and myositis, unspecified Mylagia and myositis, unspecified documented in this encounter Care Teams Roll Tender Relationship Specialty Start Date End Date Charles Delgadillo MD [address] [address] PCP - General Family Practice 09/05/10 documented as of this encounter
--- OUTSIDE RECORDS SUMMARY | 2025-09-20 14:43 | XMS_ITS | Encounter Summary ---
Author Organization [employer] [facility] Address [address] [place] [address] Care Team Providers Care Soda Dialyzer Name Role Phone Charles Delgadillo MD Primary Care Provider [phone] Encounter Details Date Type Department Care Team [...] on file Legal Sex Female 5:59 AM WEAVE DEFECT CHARTING CLERK Gender Identity Not on file Sexual Orientation Not on file documented as of this encounter Plan of Treatment Not on file documented as of this encounter Visit Diagnoses Diagnosis Chondromalacia patellae- Primary Chondromalacia of patella Chondromalacia Cervical spondylosis Cervical spondylosis without myelopathy Follow-up examination following surgery documented in this encounter Care Teams Soda Dialyzer Relationship Specialty Start Date End Date Charles Delgadillo MD [address] [place] [phone] PCP - General Family Practice 09/05/10 documented as of this encounter
--- OUTSIDE RECORDS SUMMARY | 2025-09-20 14:43 | XMS_ITS | Encounter Summary ---
Author Organization [facility] Address [address] [facility] [place] [address] Care Team Providers Care Site Acquisition Specialist Name Role Phone Charles Delgadillo MD Primary Care Provider [phone] Encounter Details Date Type Department Care Team (Late st Contact Info) Description 01/24/2007 Inpatient Historical [facility] John Guzman MD NO ADDRESS ON FILE Peripheral Vascular Complications (Primary Dx) Social History Tobacco Use Types Packs/Day Years Used Date Smoking Tobacco: Never Assessed Comments Unknown Sex and Gender Information Value Date Recorded Sex Assigned at Not on file 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 Gender Identity Not on file Sexual [...] HEMATOLOGY ORDERABLES Edite d Performing Organization Address [facility] Phone Number INTERFACE SYSTEM Refer [...] ORDERABLES COM E dited Performing Organization Address [facility] Phone Number INTERFACE SYSTEM Refer [...] MD CHEMISTRY ORDERABLES Edited Performing Organization Address [facility] Phone Number INTERFACE SYSTEM Refer [...] HEMATOLOGY ORDERABLES Edite d Performing Organization Address [facility] Phone Number INTERFACE SYSTEM Refer [...] ORDERABLES COM E dited Performing Organization Address [facility] Phone Number INTERFACE SYSTEM Refer [...] MD CHEMISTRY ORDERABLES Edited Performing Organization Address [facility] Phone Number INTERFACE SYSTEM Refer [...] SYSTEM Comment: Potentially critical/toxic platelet called by [facility] to Dk PARR, with verbal read back, at 01/29/07 04:44. MPV 9.5 8.9 - 12.8 Fl INTERFACE SYSTEM NRBC 1 <=1 INTERFACE SYSTEM 01/29/2007 4:28 AM CDT John Guzman MD HEMATOLOGY ORDERABLES Edite d Performing Organization Address [facility] Phone Number INTERFACE SYSTEM Refer [...] [phone] mOsm/Kg INTERFACE SYSTEM 01/28/2007 5:0 5 AM CDT us John Guzman MD CHEMISTRY ORDERABLES Edited Performing Organization Address [facility] Phone Number INTERFACE SYSTEM Refer [...] Diff INTERFACE SYSTEM 01/28/2007 5:05 AM CDT us John Guzman MD HEMATOLOGY ORDERABLES Final Result Performing Organization Address [facility] Phone Number INTERFACE SYSTEM Refer [...] Range. 01/28/2007 5:05 AM CDT us John Guzman MD HEMATOLOGY ORDERABLES Edite d Performing Organization Address [facility] Co de Phone Number INTERFACE [...] HEMATOLOGY ORDERABLES Edite d Performing Organization Address [facility]/ZIP Co de Phone Number INTERFACE SYSTEM Refer [...] Diff INTERFACE SYSTEM 01/27/2007 5:10 AM CDT John [...] HEMATOLOGY ORDERABLES Edite d Performing Organization Address [facility] Phone Number INTERFACE SYSTEM Refer to [...] MD CHEMISTRY ORDERABLES Edited Performing Organization Address [facility] Phone Number INTERFACE SYSTEM Refer [...] MD CHEMISTRY ORDERABLES Edited Performing Organization Address [facility] Phone Number INTERFACE SYSTEM Refer [...] MD URINE ORDERABLES Edited Performing Organization Address [facility] Phone Number INTERFACE SYSTEM Refer to [...] MD CHEMISTRY ORDERABLES Edited Performing Organization Address [facility] Phone Number INTERFACE SYSTEM Refer [...] ORDERABLES COM E dited Performing Organization Address [facility] Phone Number INTERFACE SYSTEM Refer to [...] ORDERABLES Edite d Performing Organization Address [facility] Phone Number INTERFACE SYSTEM Refer to clinic/hospital department * (ABNORMAL) CBC WITH DIFFERENTIAL (01/26/2007 4:05 AM CDT) Pathologist [facility] PLATELETS 1,172(AA) [phone] K/ul INTERFACE [...] HEMATOLOGY ORDERABLES Edite d Performing Organization Address [facility] Phone Number INTERFACE SYSTEM Refer [...] ORDERABLES Edite d Performing Organization Address [facility] Phone Number INTERFACE SYSTEM Refer to [...] Normal Range. 01/25/2007 12:5 0 PM CDT us John Guzman MD HEMATOLOGY ORDERABLES Edite d Performing Organization Address [facility] Phone Number INTERFACE SYSTEM Refer [...] HEMATOLOGY ORDERABLES Edite d Performing Organization Address [facility] Phone Number INTERFACE SYSTEM Refer [...] ORDERABLES COM E dited Performing Organization Address [facility] Phone Number INTERFACE SYSTEM Refer [...] MD CHEMISTRY ORDERABLES Edited Performing Organization Address [facility] de Phone Number INTERFACE SYSTEM Refer to [...] HEMATOLOGY ORDERABLES Edite d Performing Organization Address [facility] Phone Number INTERFACE SYSTEM Refer [...] HEMATOLOGY ORDERABLES Edite d Performing Organization Address [facility] Phone Number INTERFACE SYSTEM Refer [...] HEMATOLOGY ORDERABLES Edite d Performing Organization Address [facility] Phone Number INTERFACE SYSTEM Refer [...] Primary documented in this encounter Care Teams Site Acquisition Specialist Relationship Specialty Start Date End Date Charles Delgadillo MD [address] [place] [address] PCP - General Family Practice 09/05/10 documented as of this encounter
--- OUTSIDE RECORDS SUMMARY | 2025-09-20 14:43 | XMS_ITS | Encounter Summary ---
Author Organization [employer] [facility] Address [address] [place] [address] Care Team Providers Care Command Center Analyst Name Role Phone Charles Delgadillo MD Primary Care Provider [phone] Encounter Details Date Type Department Care Team [...] on file Legal Sex Female 5:59 AM CHANNELER Gender Identity Not on file Sexual Orientation Not on file documented as of this encounter Plan of Treatment Not on file documented as of this encounter Visit Diagnoses Diagnosis Other joint derangement, not elsewhere classified, lower leg- Primary documented in this encounter Care Teams Command Center Analyst Relationship Specialty Start Date End Date Charles Delgadillo MD [address] [place] [address] PCP - General Family Practice 09/05/10 documented as of this encounter
--- OUTSIDE RECORDS SUMMARY | 2025-09-20 14:43 | XMS_ITS | Encounter Summary ---
Author Organization [facility] Address [address] [place] [address] Care Team Providers Care Central Sterile Technician Name Role Phone Charles Delgadillo MD Primary Care Provider [phone] Encounter Details Date Type Department Care Team (Latest Contact Info) Description 03/24/2007 Outpatient Historical [facility] Medicine [place] [address] [place] [phone] Roz Capellan MD [address] [place] [phone] Skin Sensation Disturb (Primary Dx); Unspecified Site of Ankle Sprain and Strain Social History Tobacco Use Types Packs/Day Years Used Date Smoking Tobacco: Never Assessed Comments Unknown Sex and Gender Information Value Date Recorded Sex Assigned at Not on file Legal 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
--- OUTSIDE RECORDS SUMMARY | 2025-09-20 14:43 | XMS_ITS | Encounter Summary ---
Author Organization [facility] Address [address] [place] [address] Care Team Providers Care Sliver Machine Operator Name Role Phone Cahrles Delgadillo MD Primary Care Provider Encounter Details Date Type Department Care Team (Latest Contact Info) Description 02/21/2007 Outpatient Historical [facility] Medicine [place] [address] [place] [phone] Roz Capellan MD [address] [place] [phone] Unspecified Backache (Primary Dx); Unspecified Anemia; Unspecified Vaginitis and Vulvovaginitis Social History Tobacco Use Types Packs/Day Years Used Date Smoking Tobacco: Never Assessed Comments Unknown Sex and Gender Information Value Date Recorded Sex Assigned at Not on file 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
--- OUTSIDE RECORDS SUMMARY | 2025-09-20 14:43 | XMS_ITS | Encounter Summary ---
Author Organization [facility] Address [address] [place] [address] Care Team Providers Care Orthopedics Pediatric Physician Name Role Phone Charles Delgadillo MD Primary Care Provider [phone] Encounter Details Date Type Department Care Team (Late st Contact Info) Description 09/08/2007 Outpatient Historical [facility] Medicine [place] [address] [place] [phone] Roz Capellan MD [address] [place] [phone] Social History Tobacco Use Types Packs/Day Years Used Date Smoking Tobacco: Never Assessed Comments Unknown Sex and Gender Information Value Date Recorded Sex Assigned at Not on file Legal Sex Female 5:59 AM FILE CLERK DATA ENTRY Gender Identity Not on file Sexual Orientation Not on file documented as of this encounter Plan of Treatment Not on file documented as of this encounter Visit Diagnoses Not on filedocumented in this encounter Care Teams Orthopedics Pediatric Physician Relationship Specialty Start Date End Date Charles Delgadillo MD [address] [place] [phone] PCP - General Family Practice 09/05/10 documented as of this encounter
--- OUTSIDE RECORDS SUMMARY | 2025-09-20 14:43 | XMS_ITS | Encounter Summary ---
Author Organization [employer] [facility] Address [address] [facility] [address] Care Team Providers Care Chief Security And Safety Officer Name Role Phone Charles Delgadillo MD Primary Care Provider Encounter Details Date Type Department Care Team (Latest Contact Info) Description 07/29/1998 Outpatient Historical 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
--- OUTSIDE RECORDS SUMMARY | 2025-09-20 14:43 | XMS_ITS | Encounter Summary ---
Author Organization [facility] Address [address] [place] [address] Care Team Providers Care Sharepoint Net Developer Name Role Phone Charles Delgadillo MD Primary Care Provider [phone] Encounter Details Date Type Department Care Team (Latest Contact Info) Description 02/20/2007 Outpatient Historical [facility] Imaging Services [address] 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
--- OUTSIDE RECORDS SUMMARY | 2025-09-20 14:43 | XMS_ITS | Encounter Summary ---
Author Organization [facility] Address [address] [place] [address] Care Team Providers Care College Intern Name Role Phone Charles Delgadillo MD Primary Care Provider [phone] Encounter Details Date Type Department Care Team (Latest Contact Info) Description 08/16/1998 Outpatient Historical [facility] Rheumatology- [facility] [address] [place] [address] Myalgia and myositis, unspecified (Primary Dx); Skin sensation disturb; Tension headache Social History Tobacco Use Types Packs/Day Years Used Date Smoking Tobacco: Never Assessed Comments Unknown Sex and Gender Information Value Date Recorded Sex Assigned at Not on file 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
--- OUTSIDE RECORDS SUMMARY | 2025-09-20 14:43 | XMS_ITS | Encounter Summary ---
Author Organization [facility] Address [address] [place] [address] Care Team Providers Care Finger Lift Operator Name Role Phone Charles Delgadillo MD Primary Care Provider [phone] Encounter Details Date Type Department Care Team (Late st Contact Info) Description 10/30/2007 Outpatient Historical [facility] [address] [place] [address] Antonio Lopez MD [address] [place] [address] Social History Tobacco Use Types Packs/Day Years Used Date Smoking Tobacco: Never Assessed Comments Unknown Sex and Gender Information Value Date Recorded Sex Assigned at Not on file Legal Sex Female 5:59 AM CHURN OPERATOR MARGARINE Gender Identity Not on file Sexual Orientation Not on file documented as of this encounter Plan of Treatment Not on file documented as of this encounter Procedures Procedure Name Priority Date/Time Associated Diagnosis Comments VITAMIN B12 LEVEL Routine 11/19/2007 10: 23 AM CHURN OPERATOR MARGARINE CK Routine 11/19/2007 10:23 AM CHURN OPERATOR MARGARINE HEPATIC FUNCTION PANEL Routine 11/19/2007 10:23 AM CHURN OPERATOR MARGARINE documented in this encounter Results * VITAMIN B12 (11/19/2007 10:23 AM CHURN OPERATOR MARGARINE) VITAMIN B12 865 >242 PG/ML [facility] VITAMIN B12 (NOTE) DEFICIENT [...] the normal range(usually less than 400 pg/ml). [facility] 11/19/2007 10:2 3 AM CHURN OPERATOR MARGARINE 11/19/2007 10:24 AM CHURN OPERATOR MARGARINE us Roz Capellan MD CHEMISTRY ORDERABLES Final Resu lt Performing Organization Address City/[facility]/ZIP Co de Phone Number [facility] CLIA# [id number] [address] [place] [address] * (ABNORMAL) HEPATIC FUNCTION PANEL (11/19/2007 10:23 AM CHURN OPERATOR MARGARINE) TOTAL PROTEIN 7.1 5.9 - 8.2 G/DL [facility] ALBUMIN 4.6 3.4 - 4.8 G/DL [facility] AST 37(H) 12 - 32 IU/L [facility] ALT 72(H) 4 - 36 IU/L [facility] ALKALINE PHOSPHATASE 118(H) 35 - 104 IU/L [facility] BILIRUBIN TOTAL 0.2 0.2 - 1.0 MG/DL [facility] BILIRUBIN DIRECT <0.1 0.0 - 0.3 MG/DL [facility] 11/19/2007 10:2 3 AM CHURN OPERATOR MARGARINE 11/19/2007 10:24 AM CHURN OPERATOR MARGARINE us Roz Capellan MD CHEMISTRY ORDERABLES Final Resu lt [facility] CLIA# [id number] [address] [place] [address] * (ABNORMAL) CK (11/19/2007 10:23 AM CHURN OPERATOR MARGARINE) CK 178(H) 26 - 140 IU/L [facility] 11/19/2007 10:2 3 AM CHURN OPERATOR MARGARINE 11/19/2007 10:24 AM CHURN OPERATOR MARGARINE us Roz Capellan MD CHEMISTRY ORDERABLES Final Resu lt [facility] CLIA# [id number] [address] [place] [address] documented in this encounter Visit Diagnoses Not on filedocumented in this encounter Care Teams Finger Lift Operator Relationship Specialty Start Date End Date Charles Delgadillo MD [address] [place] [address] PCP - General Family Practice 09/05/10 documented as of this encounter
--- OUTSIDE RECORDS SUMMARY | 2025-09-20 14:43 | XMS_ITS | Encounter Summary ---
Author Organization [facility] Address [address] [place] [address] Care Team Providers Care Wet Primer Powder Blender Name Role Phone Charles Delgadillo MD Primary Care Provider [phone] Encounter Details Date Type Department Care Team (Latest Contact Info) Description 11/14/1998 Outpatient Historical [facility] Olu Pineda Jr., MD [address] [place] [address] Other and unspecified hyperlipidemia (Primary Dx); Unspecified essential hypertension; Chest pain, unspecified; Other dyspnea and respiratory abnormality Social History Tobacco Use Types Packs/Day Years Used Date Smoking Tobacco: Never Assessed Comments Unknown Sex and Gender Information Value Date Recorded Sex Assigned at Not on file Legal Sex Female 5:59 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
--- OUTSIDE RECORDS SUMMARY | 2025-09-20 14:43 | XMS_ITS | Encounter Summary ---
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); Cervicalgia Social History Tobacco Use Types Packs/Day Years Used Date Smoking Tobacco: Never Assessed Comments Unknown Sex and Gender Information Value Date Recorded Sex Assigned at Not on file Legal 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
--- OUTSIDE RECORDS SUMMARY | 2025-09-20 14:43 | XMS_ITS | Encounter Summary ---
Author Organization [facility] Address [address] [place] [address] Care Team Providers Care Director Geophysical Laboratory Name Role Phone Charles Delgadillo MD Primary Care Provider [phone] Encounter Details Date Type Department Care Team (Latest Contact Info) Description 11/25/1998 Outpatient [facility] Family Medicine [place] [address] [facility] [address] [place] [address] Thomas Anne MD [address] [address] Unspecified essential hypertension (Primary Dx); Myalgia and myositis, unspecified Social History Tobacco Use Types Packs/Day Years Used Date Smoking Tobacco: Never Assessed Comments Unknown Sex and Gender Information Value Date Recorded Sex Assigned at Not on file Legal Sex Female 5:59 AM FAMILY 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
--- OUTSIDE RECORDS SUMMARY | 2025-09-20 14:43 | XMS_ITS | Encounter Summary ---
Author Organization [employer] [facility] Address [address] [place] [address] Care Team Providers Care Pay Station Attendant Name Role Phone Charles Delgadillo MD Primary Care Provider [phone] Reason for Referral * Outpatient Services (Routine) - Closed Specialty Diagnoses / Procedures Referred By Contchrissy t Referred To Contact Diagnoses Visit for screening mammogram Procedures MAMMO SCRN BILAT MOBILE W OR WO CAD Charles Delgadillo MD [address] [address] Phone: tel: fax: Referral ID Status Reason Start Date Expiration Date Visits Re quested Visits Authorized [id number] Closed 08/29/2017 09/29/2018 1 1 ERS AND ACQUISITIONS MANAGER Encounter Details Date Type Department Care Team (Latest Contact Info) Description 08/29/2017 Ancillary Orders [facility] [place] [address] [address] Charles Delgadillo MD [address] [place] [address] Visit for screening mammogram Social History Tobacco Use Types Packs/Day Years Used Date Smoking Tobacco: Never Smokeless Tobacco: Never Alcohol Use Standard Drinks/Week Comments No 0 (1 standard drink = 0.6 oz pur e alcohol) Comments No Sex and Gender Information Value Date Recorded Sex Assigned at Not on file Legal Sex Female 5:59 AM MERGERS AND ACQUISITIONS MANAGER Gender Identity Not on file Sexual Orientation Not on file 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
--- OUTSIDE RECORDS SUMMARY | 2025-09-20 14:43 | XMS_ITS | Encounter Summary ---
Author Organization [facility] Address [address] [place] [address] Care Team Providers Care Senior Sales Manager Name Role Phone Charles Delgadillo MD Primary Care Provider [phone] Encounter Details Date Type Department Care Team (Late st Contact Info) Description 09/27/[address] [facility] Emergency Department [address] 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 Not on file Not on file Not on file disabled Not on file Not on file Not on file documented as of this encounter Plan of Treatment Not on file documented as of this encounter Procedures Procedure Name Priority Date/Time Associated Diagnosis Comments CT ABDOMEN PELVIS W CONTRAST Routine 09/27/2008 7:18 PM RUBBER GOODS FINISHER URINALYSIS MICROSCOPY ONLY Stat 09/27/2008 6:11 PM RUBBER GOODS FINISHER URINALYSIS W/REFLEX MICROSCOPIC Stat 09/27/2008 6:11 PM RUBBER GOODS FINISHER DIFFERENTIAL, MANUAL Stat 09/27/2008 5:37 PM RUBBER GOODS FINISHER CBC WITH DIFFERENTIAL Stat 09/27/2008 5:37 PM RUBBER GOODS FINISHER LIPASE Stat 09/27/2008 5:37 PM RUBBER GOODS FINISHER COMPREHENSIVE METABOLIC PANEL Stat 09/27/2008 5:37 PM RUBBER GOODS FINISHER documented in this encounter Results * CT ABDOMEN PELVIS W CONTRAST (09/27/2008 7:18 PM RUBBER GOODS FINISHER) Anatomical Region Laterality Modality Abdomen Other 09/27/2008 7:18 PM RUBBER GOODS FINISHER Narrative 09/27/2008 8:[address] of the abdomen and pelvis was [...] (ABNORMAL) URINALYSIS MICROSCOPY ONLY (09/27/2008 6:11 PM RUBBER GOODS FINISHER) HYALINE CAST None Seen 0 - 2 [facility] BACTERIA UA Few(A) None Seen [facility] WBC URINE 0-2 0 - 2 [facility] RBC UA 0-2 0 - 2 [facility] Urine specimen (specimen) 09/27/2008 6:11 PM RUBBER GOODS FINISHER 09/27/2008 6:16 PM RUBBER GOODS FINISHER Olu Barrett DO URINE ORDERABLES Final Result Performing Organization Address [facility] Phone Number INTERFACE SYSTEM Refer to clinic/hospital department [facility] CLIA# [id number] [address] [place] [address] * (ABNORMAL) URINALYSIS (09/27/2008 6:11 PM RUBBER GOODS FINISHER) NITRITE UA NEGATIVE NEGATIVE [facility] UROBILINOGEN UA 0.2 0.2 [facility] CLARITY UA Clear Clear [facility] SPECIFIC GRAVITY UA 1.025 <=1.005 [facility] GLUCOSE UA NEGATIVE NEGATIVE [facility] PH UA 5.5 5.0 - 9.0 [facility] BILIRUBIN UA NEGATIVE NEGATIVE [facility] LEUKOCYTE ESTERASE UA NEGATIVE NEGATIVE [facility] KETONES UA 15 mg/dl(A) NEGATIVE [facility] MICRO EXAM Yes(A) No [facility] COLOR UA Yellow Straw [facility] PROTEIN UA NEGATIVE NEGATIVE [facility] BLOOD UA NEGATIVE NEGATIVE [facility] Urine specimen (specimen) 09/27/2008 6:11 PM RUBBER GOODS FINISHER 09/27/2008 6:16 PM RUBBER GOODS FINISHER Olu Barrett DO URINE ORDERABLES Final Result Performing Organization Address [facility] de Phone Number INTERFACE SYSTEM Refer to clinic/hospital department [facility] CLIA# [id number] [address] [place] [address] * (ABNORMAL) DIFFERENTIAL, MANUAL (09/27/2008 5:37 PM RUBBER GOODS FINISHER) ANISOCYTOSIS 1+(A) None Seen [facility] ATYPICAL LYMPHOCYTE 15(H) <=0 % [facility] Comment: REACTIVE LYMPHS PLATELET EST. Increased (A) Normal [facility] MONOCYTE 5 4 - 10 % [facility] BANDS 1 0 - 6 % [facility] RBC MORPHOLOGY Abnormal( A) Normal [facility] LYMPHOCYTES 31 24 - 44 % [facility] EOSINOPHILS 1 0 - 3 % [facility] NEUTROPHILS, SEG 47 36 - 66 % [facility] Blood specimen (specimen) 09/27/2008 5:37 PM RUBBER GOODS FINISHER 09/27/2008 5:51 PM RUBBER GOODS FINISHER Narrative INTERFACE SYSTEM - 09/27/2008 6:55 PM RUBBER GOODS FINISHER Differential ordered by policy. Olu Barrett DO HEMATOLOGY ORDERABLES C OM Final Result INTERFACE SYSTEM Refer to clinic/hospital department [facility] CLIA# [id number] [address] [place] [address] * (ABNORMAL) CBC WITH DIFFERENTIAL (09/27/2008 5:37 PM RUBBER GOODS FINISHER) RBC 5.20 4.20 - 5.40 Mil/ul [facility] MCHC 33.9 30.0 - 35.0 g/dL [facility] MCV 89.0 84.0 - 103.0 Fl [facility] MPV 9.7 8.9 - 12.8 Fl [facility] HEM COMMENT Smear Reviewed Automated Diff [facility] Comment: If lymphocytosis is persistent, suggest flow on blood. Interpreted by: Jumana Mejia HEMOGLOBIN 15.7 12.0 - 16.0 g/dL [facility] RDW 14.6(H) 11.0 - 14.5 % [facility] WBC 14.2(H) 4.8 - 10.8 K/ul [facility] MCH 30.2 27.0 - 34.0 pg [facility] HEMATOCRIT 46.3(H) 36.0 - 46.0 % [facility] PLATELETS 559(H) 140 - 440 K/ul [facility] Blood specimen (specimen) 09/27/2008 5:37 PM RUBBER GOODS FINISHER 09/27/2008 5:51 PM RUBBER GOODS FINISHER Olu Barrett DO HEMATOLOGY ORDERABLES E dited Performing Organization Address [facility] Phone Number INTERFACE SYSTEM Refer to clinic/hospital department [facility] CLIA# [id number] [address] [place] [address] * LIPASE (09/27/2008 5:37 PM RUBBER GOODS FINISHER) [facility] LIPASE 36 6 - 51 U/L [facility] Blood specimen (specimen) 09/27/2008 5:37 PM RUBBER GOODS FINISHER 09/27/2008 5:51 PM RUBBER GOODS FINISHER Olu Barrett DO CHEMISTRY ORDERABLES Fi nal Result Performing Organization Address [facility] Phone Number INTERFACE SYSTEM Refer to clinic/hospital department [facility] CLIA# [id number] [facility] [place] [address] * (ABNORMAL) COMPREHENSIVE METABOLIC PANEL (09/27/2008 5:37 PM RUBBER GOODS FINISHER) [facility] ANION GAP 14 9 - 20 mEq/L [facility] ALBUMIN 5.4(H) 3.5 - 5.0 g/dL [facility] CREATININE 1.1 0.7 - 1.2 mg/dL [facility] ALT 45(H) 4 - 36 IU/L [facility] CALCIUM 10.6(H) 8.4 - 10.5 mg/dL [facility] GLUCOSE 107 70 - 110 mg/dL [facility] ALKALINE PHOSPHATASE 92 25 - 100 U/L [facility] CHLORIDE 108 95 - 110 mEq/L [facility] OSMOLALITY, CALCULATED 296(H) 275 - 295 mOsm/Kg [facility] GLOBULIN (CALC) 3.3 2.4 - 3.9 g/dL [facility] TOTAL PROTEIN 8.7(H) 6.3 - 8.2 g/dL [facility] SODIUM 143 136 - 145 mEq/L [facility] BILIRUBIN TOTAL 0.3 0.3 - 1.2 mg/dL [facility] CO2 25 22 - 32 mmol/l [facility] BUN 20(H) 7 - 17 mg/dL [facility] AST 39(H) 8 - 33 U/L [facility] ALBUMIN/GLOBULIN RATIO 1.6 1.0 - 2.3 [facility] POTASSIUM 3.6 3.5 - 5.0 mEq/L [facility] Blood specimen (specimen) 09/27/2008 5:37 PM RUBBER GOODS FINISHER 09/27/2008 5:51 PM RUBBER GOODS FINISHER Olu Barrett DO CHEMISTRY ORDERABLES Fi nal Result INTERFACE SYSTEM Refer to clinic/hospital department [facility] CLIA# [id number] [address] [place] [address] documented in this encounter Visit Diagnoses Not on filedocumented in this encounter Care Teams Senior Sales Manager Relationship Specialty Start Date End Date Charles Delgadillo MD [address] [place] [address] PCP - General Family Practice 09/05/10 documented as of this encounter
--- OUTSIDE RECORDS SUMMARY | 2025-09-20 14:43 | XMS_ITS | Encounter Summary ---
Author Organization [facility] Address [address] [place] [address] Care Team Providers Care Director Workers Compensation Name Role Phone Charles Delgadillo MD Primary Care Provider [phone] Encounter Details Date Type Department Care Team (Latest Contact Info) Description 07/10/1999 Outpatient Historical [facility] Family Medicine [address] [phone] Jameel Rodriguez DO NO ADDRESS ON FILE Urticaria, unspecified (Primary Dx) Social History Tobacco Use Types Packs/Day Years Used Date Smoking Tobacco: Never Assessed Comments Unknown Sex and Gender Information Value Date Recorded Sex Assigned at Not on file Legal Sex Female 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
--- OUTSIDE RECORDS SUMMARY | 2025-09-20 14:43 | XMS_ITS | Encounter Summary ---
Author Organization [facility] Address [address] [place] [address] Care Team Providers Care Plaster Mixer Name Role Phone Charles Delgadillo MD Primary Care Provider [phone] Encounter Details Date Type Department Care Team (Latest Contact Info) Description 07/19/1999 Outpatient Historical [facility] Family Medicine [address] [phone] Jameel Rodriguez DO NO ADDRESS ON FILE Myalgia and myositis, unspecified (Primary Dx); Unspecified essential hypertension Social History Tobacco Use Types Packs/Day Years Used Date Smoking Tobacco: Never Assessed Comments Unknown Sex and Gender Information Value Date Recorded Sex Assigned at Not on file Legal Sex Female 5: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
--- OUTSIDE RECORDS SUMMARY | 2025-09-20 14:43 | XMS_ITS | Encounter Summary ---
Author Organization [facility] Address [address] [place] [address] Care Team Providers Care Analytics Developer Name Role Phone Charles Delgadillo MD Primary Care Provider [phone] Encounter Details Date Type Department Care Team (Latest Contact Info) Description 08/07/[address] 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 Gender Identity Not on file Sexual Orientation Not on file documented as of this encounter Plan of Treatment Not on file documented as of this encounter Visit Diagnoses Diagnosis Nonspecific abnormal results of liver function study- Primary Rheumatoid arthritis(714.0) (CMS/HCC) Rheumatoid arthritis Myalgia and myositis, unspecified Mylagia and myositis, unspecified Spasm of muscle documented in this encounter Care Teams Analytics Developer Relationship Specialty Start Date End Date Charles Delgadillo MD [address] [place] [address] PCP - General Family Practice 09/05/10 documented as of this encounter
--- OUTSIDE RECORDS SUMMARY | 2025-09-20 14:43 | XMS_ITS | Encounter Summary ---
Author Organization [facility] Address [address] [place] [address] Care Team Providers Care Supervisor Asbestos Textile Name Role Phone Charles Delgadillo MD Primary Care Provider [phone] Encounter Details Date Type Department Care Team (Late st Contact Info) Description 04/12/2008 Outpatient Historical [facility] [address] [address] Social History Tobacco Use Types Packs/Day Years Used Date Smoking Tobacco: Never Assessed Comments No Sex and Gender Information Value Date Recorded Sex Assigned at Not on file Legal Sex Female 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
--- OUTSIDE RECORDS SUMMARY | 2025-09-20 14:43 | XMS_ITS | Encounter Summary ---
Author Organization [employer] [facility] Address [address] [place] [address] Care Team Providers Care Invoice Control Clerk Name Role Phone Charles Delgadillo MD Primary Care Provider [phone] Encounter Details Date Type Department Care Team (Latest Contact Info) Description 09/28/1998 Outpatient Historical [facility] Olu Pineda Jr., MD [address] [place] [phone] Acute sinusitis, unspecified (Primary Dx) Social History Tobacco Use Types Packs/Day Years Used Date Smoking Tobacco: Never Assessed Comments Unknown Sex and Gender Information Value Date Recorded Sex Assigned at Not on file 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
--- OUTSIDE RECORDS SUMMARY | 2025-09-20 14:43 | XMS_ITS | Encounter Summary ---
Author Organization [facility] Address [address] [place] [address] Care Team Providers Care Senior Outside Sales Representative Name Role Phone Charles Delgadillo MD Primary Care Provider [phone] Encounter Details Date Type Department Care Team (Late [facility]) Description 10/17/2007 Outpatient Historical [facility] 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] , P dmt Job #: Document #: [id number] cc: (Not official until signed) SHING MACHINE OPERATOR documented in this encounter Plan of Treatment Not on file documented as of this encounter Procedures Procedure Name Priority Date/Time Associated Diagnosis Comments IMAGING REPORT 10/27/2007 8:34 AM THRESHING MACHINE OPERATOR documented in this encounter Results * IMAGING REPORT (10/27/2007 8:34 AM THRESHING MACHINE OPERATOR) Narrative Transcriptions Melvin Nunez - 10/17/2007 12:00 AM CST Patient Name: Moira Mckinnon Date: 10/17/2007 Chart Number:[id number] RADIOLOGY REPORT 1 1 Date: 10/17/2007 Patient Name: Moira Mckinnon : 1950 Requesting Physician: Melvin Nunez M.D. RADIOGRAPHIC FINDINGS: She has x-rays obtained which reveal no acute bonyabnormalities, left ankle. There is no evidence of nonunion or otherproblems at the distal fibula today. Melvin Nunez M.D. [facility] Electronically Signed by Melvin Nunez M.D. 10/27/2007 08:34 , P dmt Job #: Document #: [id number] cc: (Not official until signed) Melvin Nunez MD DIAGNOSTIC IMAGING ORDERABLE S Final Result documented in this encounter Visit Diagnoses Not on filedocumented in this encounter Care Teams Senior Outside Sales Representative Relationship Specialty Start Date End Date Charles Delgadillo MD [address] [place] [address] PCP - General Family Practice 09/05/10 documented as of this encounter
--- OUTSIDE RECORDS SUMMARY | 2025-09-20 14:43 | XMS_ITS | Encounter Summary ---
Author Organization [facility] Address [address] [place] [address] Care Team Providers Care Concession Stand Attendant Name Role Phone Charles Degladillo MD Primary Care Provider [phone] Encounter Details Date Type Department Care Team (Latest Contact Info) Description 12/20/1998 Outpatient Historical [facility] Rheumatology- [facility] [address] [place] [address] Myalgia and myositis, unspecified (Primary Dx); Sleep disturbance, unspecified; Abnormality of gait Social History Tobacco Use Types Packs/Day Years Used Date Smoking Tobacco: Never Assessed Comments Unknown Sex and Gender Information Value Date Recorded Sex Assigned at Not on file Legal Sex Female 5:59 AM CALL CENTER AGENT Gender Identity Not on file Sexual Orientation Not on file documented as of this encounter Plan of Treatment Not on file documented as of this encounter Visit Diagnoses Diagnosis Myalgia and myositis, unspecified- Primary Mylagia and myositis, unspecified Sleep disturbance, unspecified Abnormality of gait documented in this encounter Care Teams Concession Stand Attendant Relationship Specialty Start Date End Date Charles Delgadillo MD [address] [place] [address] PCP - General Family Practice 09/05/10 documented as of this encounter
--- OUTSIDE RECORDS SUMMARY | 2025-09-20 14:43 | XMS_ITS | Encounter Summary ---
Author Organization [facility] Address [address] [place] [address] Care Team Providers Care Rough Rounder Machine Name Role Phone Charles Delgadillo MD Primary Care Provider [phone] Encounter Details Date Type Department Care Team (Latest Contact Info) Description 06/21/1998 Outpatient Historical [facility] Rheumatology- [facility] [address] [address] Myalgia and myositis, unspecified (Primary Dx); Sleep disturbance, unspecified Social History Tobacco Use Types Packs/Day Years Used Date Smoking Tobacco: Never Assessed Comments Unknown Sex and Gender Information Value Date Recorded Sex Assigned at Not on file Legal Sex Female 5:59 AM FIELD TECH Gender Identity Not on file Sexual Orientation Not on file documented as of this encounter Plan of Treatment Not on file documented as of this encounter Visit Diagnoses Diagnosis Myalgia and myositis, unspecified- Primary Mylagia and myositis, unspecified Sleep disturbance, unspecified documented in this encounter Care Teams Rough Rounder Machine Relationship Specialty Start Date End Date Charles Delgadillo MD [address] [place] [address] PCP - General Family Practice 09/05/10 documented as of this encounter
--- OUTSIDE RECORDS SUMMARY | 2025-09-20 14:43 | XMS_ITS | Encounter Summary ---
Author Organization [facility] Address [address] 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
--- OUTSIDE RECORDS SUMMARY | 2025-09-20 14:43 | XMS_ITS | Encounter Summary ---
Author Organization [facility] Address [address] [place] [address] Care Team Providers Care Architect Manager Name Role Phone Charles Delgadillo MD Primary Care Provider [phone] Encounter Details Date Type Department Care Team (Latest Contact Info) Description 06/27/2007 Outpatient Historical [facility] [address] [phone] Roz Capellan MD [address] [place] [phone] Insomnia, Unspecified (Primary Dx); Unspecified Arthropathy, Site Unspecified; Unspecified Constipation; Lower Extremity Embolism (CMS/HCC); Vaccine for Influenza Social History Tobacco Use Types Packs/Day Years Used Date Smoking Tobacco: Never Assessed Comments Unknown Sex and Gender Information Value Date Recorded Sex Assigned at Not on file Legal 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
--- OUTSIDE RECORDS SUMMARY | 2025-09-20 14:43 | XMS_ITS | Encounter Summary ---
Author Organization [facility] Address [address] [place] [address] Care Team Providers Care Client Operations Manager Name Role Phone Charles Delgadillo MD Primary Care Provider [phone] Encounter Details Date Type Department Care Team (Latest Contact Info) Description 02/27/2007 Outpatient Historical [facility] [address] 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 Gender Identity Not on file Sexual [...] HEMATOLOGY ORDERABLES Edite d Performing Organization Address [facility] Phone Number INTERFACE SYSTEM Refer to clinic/hospital department * MAGNESIUM LEVEL (02/27/2007 2:20 PM CDT) MAGNESIUM 1.8 1.7 - 2.4 mg/dL INTERFACE SYSTEM Comment: The new reference range is 1.7-2.4 The old referance range was 1.6-2.3 02/27/2007 2:20 PM CDT Andrew Richards MD CHEMISTRY ORDERABLES Edited Performing Organization Address [facility] Phone Number INTERFACE SYSTEM Refer to clinic/hospital [...] Primary documented in this encounter Care Teams Client Operations Manager Relationship Specialty Start Date End Date Charles Delgadillo MD [address], [place] [address] PCP - General Family Practice 09/05/10 documented as of this encounter
--- OUTSIDE RECORDS SUMMARY | 2025-09-20 14:43 | XMS_ITS | Encounter Summary ---
Author Organization [facility] Address [address] [place] [address] Care Team Providers Care Protein Chemist Name Role Phone Charles Delgadillo MD Primary Care Provider [phone] Encounter Details Date Type Department Care Team (Late st Contact Info) Description 10/28/2007 Outpatient [facility] [address] [place] [address] [phone] Antonio Lopez MD [address] [place] [address] Social History Tobacco Use Types Packs/Day Years Used Date Smoking Tobacco: Never Assessed Comments Unknown Sex and Gender Information Value Date Recorded Sex Assigned at Not on file Legal Sex Female 5:59 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
--- OUTSIDE RECORDS SUMMARY | 2025-09-20 14:43 | XMS_ITS | Encounter Summary ---
Author Organization [facility] Address [address] [place] [address] Care Team Providers Care Charge Lpn Name Role Phone Charles Delgadillo MD Primary Care Provider [phone] Encounter Details Date Type Department Care Team (Late st Contact Info) Description 09/30/2008 Outpatient Historical [facility] Operating Room [address] [place] [address] Fernando Jay, Paul Swain MD [address] [place] [address] Social History Tobacco Use Types Packs/Day Years Used Date Smoking Tobacco: Never Alcohol Use Standard Drinks/Week Comments No 0 (1 standard drink = 0.6 oz pur e alcohol) Comments No Sex and Gender Information Value Date Recorded Sex Assigned at Not on file Legal Sex Female 5:59 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
--- OUTSIDE RECORDS SUMMARY | 2025-09-20 14:43 | XMS_ITS | Encounter Summary ---
Author Organization [facility] Address [address] [place] [address] Care Team Providers Care Needle Loom Operator Helper Name Role Phone Charles Delgadillo MD Primary Care Provider [phone] Encounter Details Date Type Department Care Team (Late st Contact Info) Description 01/05/2008 Outpatient Historical [facility] [address] [place] [phone] Antonio Lopez MD [address] [place] [address] Social History Tobacco Use Types Packs/Day Years Used Date Smoking Tobacco: Never Assessed Comments Unknown Sex and Gender Information Value Date Recorded Sex Assigned at Not on file 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
--- OUTSIDE RECORDS SUMMARY | 2025-09-20 14:43 | XMS_ITS | Encounter Summary ---
Author Organization [facility] Address [address] [place] [address] Care Team Providers Care Grinder Needle Tip Name Role Phone Charles Delgadillo MD Primary Care Provider [phone] Encounter Details Date Type Department Care Team (Latest Contact Info) Description 07/15/2007 Outpatient [facility] [address] [place] [address] [place] [address] [phone] Antonio Lopez MD [address] [place] [address] Follow-Up Examination, Following Unspecified Surgery (Primary Dx) Social History Tobacco Use Types Packs/Day Years Used Date Smoking Tobacco: Never Assessed Comments Unknown Sex and Gender Information Value Date Recorded Sex Assigned at Not on file Legal Sex Female 5:59 AM 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
--- OUTSIDE RECORDS SUMMARY | 2025-09-20 14:43 | XMS_ITS | Encounter Summary ---
Author Organization [employer] [facility] Address [address] [place] [address] Care Team Providers Care Garbage Pick Up Man Name Role Phone Charles Delgadillo MD Primary Care Provider [phone] Encounter Details Date Type Department Care Team (Latest Contact Info) Description 09/12/1998 Outpatient Historical [facility] Olu Pineda Jr., MD [facility] [place] [address] Urinary frequency (Primary Dx); Other dyspnea and respiratory abnormality; Pure hypercholesterolem; Myalgia and myositis, unspecified Social History Tobacco Use Types Packs/Day Years Used Date Smoking Tobacco: Never Assessed Comments Unknown Sex and Gender Information Value Date Recorded Sex Assigned at Not on file 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 Gender Identity Not on file Sexual Orientation Not on file documented as of this encounter Plan of Treatment Not on file documented as of this encounter Visit Diagnoses Diagnosis Urinary frequency- Primary Other dyspnea and respiratory abnormality Pure hypercholesterolem Pure hypercholesterolemia Myalgia and myositis, unspecified Mylagia and myositis, unspecified documented in this encounter Care Teams Garbage Pick Up Man Relationship Specialty Start Date End Date Charles Delgadillo MD [address] [place] [address] PCP - General Family Practice 09/05/10 documented as of this encounter
--- OUTSIDE RECORDS SUMMARY | 2025-09-20 14:43 | XMS_ITS | Encounter Summary ---
Author Organization [facility] Address [address] [place] [address] Care Team Providers Care Bottom Liquor Attendant Name Role Phone Charles Delgadillo MD Primary Care Provider [phone] Encounter Details Date Type Department Care Team (Latest Contact Info) Description 03/12/2007 Outpatient Historical [facility] Imaging Services-[facility] [address] [place] [address] Fernando Jay, Paul Swain MD [address] [facility] [address] [place] [address] Follow-Up Examination, Following Other Surgery (Primary Dx) Social History Tobacco Use Types Packs/Day Years Used Date Smoking Tobacco: Never Assessed Comments Unknown Sex and Gender Information Value Date Recorded Sex Assigned at Not on file Legal Sex Female 5:59 AM RECOVERY ROOM RN Gender Identity Not on file Sexual Orientation Not on file documented as of this encounter Plan of Treatment Not on file documented as of this encounter Visit Diagnoses Diagnosis Follow-up examination, following other surgery- Primary documented in this encounter Care Teams Bottom Liquor Attendant Relationship Specialty Start Date End Date Charles Delgadillo MD [address] [place] [address] PCP - General Family Practice 09/05/10 documented as of this encounter
--- OUTSIDE RECORDS SUMMARY | 2025-09-20 14:43 | XMS_ITS | Encounter Summary ---
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) (Primary Dx); Edema; Encounter for Long-Term (Current) Use of Anticoagulants Social History Tobacco Use Types Packs/Day Years Used Date Smoking Tobacco: Never Assessed Comments Unknown Sex and Gender Information Value Date Recorded Sex Assigned at Not on file Legal Sex Female 5:59 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 Gender Identity Not on file Sexual Orientation Not on file documented as of this encounter Plan of Treatment Not on file documented as of this encounter Visit Diagnoses Diagnosis Acute venous embolism and thrombosis of unspecified deep vessels of lower extremity- Primary Edema [facility] (current) use of anticoagulants Long-term (current) use of anticoagulants documented in this encounter Care Teams Cloth Desizing Range Operator Chief Relationship Specialty Start Date End Date Charles Delgadillo MD [address] [place] [address] PCP - General Family Practice 09/05/10 documented as of this encounter
--- OUTSIDE RECORDS SUMMARY | 2025-09-20 14:43 | XMS_ITS | Encounter Summary ---
Author Organization [facility] Address [address] [place] [address] Care Team Providers Care Drum Reel Cutter Name Role Phone Charles Delgadillo MD Primary Care Provider [phone] Encounter Details Date Type Department Care Team (Latest Contact Info) Description 06/10/2007 Outpatient Historical [facility] Orthopedic Sports Medicine-[facility] [address] [place] [address] Melvin Nunez MD NO ADDRESS ON FILE Closed Fracture of Lateral Malleolus (Primary Dx); Unspecified Site of Ankle Sprain and Strain Social History Tobacco Use Types Packs/Day Years Used Date Smoking Tobacco: Never Assessed Comments Unknown Sex and Gender Information Value Date Recorded Sex Assigned at Not on file Legal Sex Female 5:59 AM DIMENSION SPECIFICATION 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
--- OUTSIDE RECORDS SUMMARY | 2025-09-20 14:43 | XMS_ITS | Encounter Summary ---
Author Organization [facility] Address [address] [place] [address] Care Team Providers Care Veneer Splicer Name Role Phone Charles Delgadillo MD Primary Care Provider [phone] Encounter Details Date Type Department Care Team (Latest Contact Info) Description 04/28/2007 Outpatient Historical [facility] Medicine [place] [address] [place] [phone] Roz Capellan MD [address] [place] [phone] Acute Frontal Sinusitis (Primary Dx); Urinary Tract Infection, Site not Specified; Unspecified Closed Fracture of Ankle Social History Tobacco Use Types Packs/Day Years Used Date Smoking Tobacco: Never Assessed Comments Unknown Sex and Gender Information Value Date Recorded Sex Assigned at Not on file Legal Sex Female 5:59 AM MARKETING SUPPORT ASSISTANT Gender Identity Not on file Sexual Orientation Not on file documented as of this encounter Plan of Treatment Not on file documented as of this encounter Visit Diagnoses Diagnosis Acute frontal sinusitis- Primary Urinary tract infection, site not specified Unspecified closed fracture of ankle documented in this encounter Care Teams Veneer Splicer Relationship Specialty Start Date End Date Charles Delgadillo MD [address] [place] [phone] PCP - General Family Practice 09/05/10 documented as of this encounter
--- OUTSIDE RECORDS SUMMARY | 2025-09-20 14:43 | XMS_ITS | Encounter Summary ---
Author Organization [facility] Address [address] [place] [address] Care Team Providers Care Water Server Name Role Phone Charles Delgadillo MD Primary Care Provider [phone] Encounter Details Date Type Department Care Team (Late st Contact Info) Description 11/19/2007 Outpatient Historical [facility] Medicine [address] [phone] Social History Tobacco Use Types Packs/Day Years Used Date Smoking Tobacco: Never Assessed Comments Unknown Sex and Gender Information Value Date Recorded Sex Assigned at Not on file Legal Sex Female 5:59 AM MAINTAINER OPERATOR Gender Identity Not on file Sexual Orientation Not on file documented as of this encounter Plan of Treatment Not on file documented as of this encounter Visit Diagnoses Not on filedocumented in this encounter Care Teams Water Server Relationship Specialty Start Date End Date Charles Delgadillo MD [address] [phone] PCP - General Family Practice 09/05/10 documented as of this encounter
--- OUTSIDE RECORDS SUMMARY | 2025-09-20 14:43 | XMS_ITS | Encounter Summary ---
Author Organization [facility] Address [address] [place] [address] Care Team Providers Care Mule Rider Name Role Phone Charles Delgadillo MD Primary Care Provider [phone] Encounter Details Date Type Department Care Team (Latest Contact Info) Description 02/27/2007 Outpatient Historical [facility] Trauma Surgery-[address] [place] [address] Marlo Haywood MD [address] [place] [address] [address] [place] [address] Follow-Up Examination, Following Unspecified Surgery (Primary Dx) Social History Tobacco Use Types Packs/Day Years Used Date Smoking Tobacco: Never Assessed Comments Unknown Sex and Gender Information Value Date Recorded Sex Assigned at Not on file Legal Sex Female 5:59 AM 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
--- OUTSIDE RECORDS SUMMARY | 2025-09-20 14:43 | XMS_ITS | Encounter Summary ---
Author Organization [facility] Address [address] [place] [address] Care Team Providers Care Qa Internship Name Role Phone Charles Delgadillo MD Primary Care Provider [phone] Encounter Details Date Type Department Care Team (Latest Contact Info) Description 10/20/[address] [facility] Pain Management Procedures [address] [place] [phone] Antonio Lopez MD [address] [place] [address] Other Postprocedural Status; Esophageal Reflux; Unspecified Arthropathy, [...] file Legal Sex Female 5:59 AM MANAGER HOUSE Gender Identity Not on file Sexual Orientation Not on file documented as of this encounter Plan of Treatment Not on file documented as of this encounter Procedures Procedure Name Priority Date/Time Associated Diagnosis Comments XR LUMBAR SPINE 2 OR 3 VW Routine 10/21/2007 3:59 PM MANAGER HOUSE documented in this encounter Results * XR LUMBAR SPINE 2 OR 3 VW (10/21/2007 3:59 PM MANAGER HOUSE) Anatomical Region Laterality Modality Spine Other 10/21/2007 3:59 PM MANAGER HOUSE Narrative 10/21/2007 3:59 PM MANAGER HOUSE Two views of the lumbar spine are [...] hypertension documented in this encounter Care Teams Qa Internship Relationship Specialty Start Date End Date Charles Delgadillo MD [address] [address] PCP - General Family Practice 09/05/10 documented as of this encounter
--- OUTSIDE RECORDS SUMMARY | 2025-09-20 14:43 | XMS_ITS | Encounter Summary ---
Author Organization [facility] Address [address] [place] [address] Care Team Providers Care Geometry Teacher Name Role Phone Norman Caldera MD Primary Care Provider [phone] Encounter Details Date Type Department Care Team (Latest Contact Info) Description 08/22/2025 Results Follow-Up [facility] Family Medicine [address] [address] Norman Caldera MD [address] [place] [phone] HEMOGLOBIN A1C, COMPREHENSIVE METABOLIC PANEL, CBC [...] worry about transportation for future doctor visits, berry picker medication, etc.? No 2024 Housing Stability [...] on file Legal Sex Female 2:09 AM RESEARCH ANIMAL ATTENDANT Gender Identity Not on file Sexual Orientation Not on file documented as of this encounter Plan of Treatment Upcoming Encounters Date Type Department Care Team (Late st Contact Info) Description 11/16/2025 11:40 AM RESEARCH ANIMAL ATTENDANT Office Visit [facility] Family Medicine [place] [address] [phone] Norman Caldera MD [address] [phone] 02/01/2026 9:30 AM CDT Office Visit [facility] Gastroenterology- [place] [address] [place] [address] Deepthi Ray, SLOPE HOIST OPERATOR [address] [facility] [address] [place] [address] documented as of this encounter [...] documented as of this encounter Care Teams Geometry Teacher Relationship Specialty Start Date End Date Norman Caldera MD [address] [place] [phone] PCP - General Family Practice 09/06/23 documented as of this encounter
--- OUTSIDE RECORDS SUMMARY | 2025-09-20 14:43 | XMS_ITS | Encounter Summary ---
Author Organization [facility] Address [address] [place] [address] Care Team Providers Care Welding Pantograph Machine Operator Name Role Phone Charles Delgadillo MD Primary Care Provider Encounter Details Date Type Department Care Team (Late st Contact Info) Description 01/27/2008 Outpatient [facility] [place] [address] [facility] [address] [place] [address] Vasiliy Xiao MD [address] [facility] [address] [place] [phone] Social History Tobacco Use Types Packs/Day Years Used Date Smoking Tobacco: Never Assessed Comments No Sex and Gender Information Value Date Recorded Sex Assigned at Not on file Legal Sex Female 5:59 AM CEMENT CRUSHER 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
--- OUTSIDE RECORDS SUMMARY | 2025-09-20 14:43 | XMS_ITS | Encounter Summary ---
Author Organization [facility] Address [address] [place] [address] Care Team Providers Care Fire Hose Curer Name Role Phone Charles Delgadillo MD Primary Care Provider [phone] Encounter Details Date Type Department Care Team (Late st Contact Info) Description 03/16/2008 Outpatient [facility] E [place] [address] [facility] [address] [place] [address] Vasiliy Xiao MD [address] [facility] [address] [place] [phone] Social History Tobacco Use Types Packs/Day Years Used Date Smoking Tobacco: Never Assessed Comments No Sex and Gender Information Value Date Recorded Sex Assigned at Not on file Legal Sex Female 5:59 AM SOLID 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
--- OUTSIDE RECORDS SUMMARY | 2025-09-20 14:43 | XMS_ITS | Encounter Summary ---
Author Organization [facility] Address [address] [place] [address] Care Team Providers Care Rn Or Lpn Name Role Phone Charles Delgadillo MD Primary Care Provider [phone] Encounter Details Date Type Department Care Team (Latest Contact Info) Description 07/24/2007 Outpatient Historical [facility] Medicine [address] [phone] Roz Capellan MD [address] [place] [phone] Unspecified Disorder of Sweat Glands (Primary Dx) Social History Tobacco Use Types Packs/Day Years Used Date Smoking Tobacco: Never Assessed Comments Unknown Sex and Gender Information Value Date Recorded Sex Assigned at Not on file Legal Sex Female 5:59 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
--- OUTSIDE RECORDS SUMMARY | 2025-09-20 14:44 | XMS_ITS | Encounter Summary ---
Author Organization [facility] Address [address] [place] [address] Care Team Providers Care Database Administration Associate Name Role Phone Charles Delgadillo MD Primary Care Provider [phone] Encounter Details Date Type Department Care Team (Late st Contact Info) Description 07/03/2000 Outpatient Historical [facility] Rheumatology- [facility] [address] [place] [address] Mark Butler DO [address] [facility] [address] [place] [address] General symptoms NEC (Primary Dx); Undiff somatoform disord; Depressive disorder, not elsewhere classified Social History Tobacco Use Types Packs/Day Years Used Date Smoking Tobacco: Never Assessed Comments Unknown Sex and Gender Information Value Date Recorded Sex Assigned at Not on file Legal Sex Female 5:59 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
--- OUTSIDE RECORDS SUMMARY | 2025-09-20 14:44 | XMS_ITS | Encounter Summary ---
Author Organization [facility] Address [address] [place] [address] Care Team Providers Care Engineering Mechanic Name Role Phone Charles Delgadillo MD Primary Care Provider [phone] Encounter Details Date Type Department Care Team (Late st Contact Info) Description 03/13/2000 Outpatient Historical [facility] Neurology [address] 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) Social History Tobacco Use Types Packs/Day Years Used Date Smoking Tobacco: Never Assessed Comments Unknown Sex and Gender Information Value Date Recorded Sex Assigned at Not on file Legal Sex Female 5:59 AM MATERIALS RESEARCH ENGINEER Gender Identity Not on file Sexual Orientation Not on file documented as of this encounter Plan of Treatment Not on file documented as of this encounter Visit Diagnoses Diagnosis Unspecified cerebral artery occlusion with cerebral infarction- Primary documented in this encounter Care Teams Engineering Mechanic Relationship Specialty Start Date End Date Charles Delgadillo MD [address], [place] [address] PCP - General Family Practice 09/05/10 documented as of this encounter
--- OUTSIDE RECORDS SUMMARY | 2025-09-20 14:44 | XMS_ITS | Encounter Summary ---
Author Organization [facility] Address [address] [place] [address] Care Team Providers Care Director Sales Support Name Role Phone Charles Delgadillo MD Primary [...] on file Legal Sex Female 5:59 AM MARINE ENGINE MACHINIST APPRENTICE Gender Identity Not on file Sexual Orientation Not on file documented as of this encounter Plan of Treatment Not on file documented as of this encounter Visit Diagnoses Diagnosis Chondromalacia patellae- Primary Chondromalacia of patella Chondromalacia Other joint derangement, not elsewhere classified, lower leg Follow-up examination following surgery documented in this encounter Care Teams Director Sales Support Relationship Specialty Start Date End Date Charles Delgadillo MD [address] [place] [address] PCP - General Family Practice 09/05/10 documented as of this encounter
--- OUTSIDE RECORDS SUMMARY | 2025-09-20 14:44 | XMS_ITS | Encounter Summary ---
Author Organization [facility] Address [address] [place] [address] Care Team Providers Care Brush Or Broom Cutter Name Role Phone Charles Delgadillo MD Primary Care Provider [phone] Encounter Details Date Type Department Care Team (Latest Contact Info) Description 10/23/1999 Outpatient [facility] Medicine [place] [address] [facility] [address] [place] [address] Thomas Anne MD [address] [phone] Dizziness and giddiness (Primary Dx); Nasal/sinus dis NEC; Esophageal reflux Social History Tobacco Use Types Packs/Day Years Used Date Smoking Tobacco: Never Assessed Comments Unknown Sex and Gender Information Value Date Recorded Sex Assigned at Not on file Legal Sex Female 5:59 AM X RAY CONSULTANT Gender Identity Not on file Sexual Orientation Not on file documented as of this encounter Plan of Treatment Not on file documented as of this encounter Visit Diagnoses Diagnosis Dizziness and giddiness- Primary Nasal/sinus dis NEC Other diseases of nasal cavity and sinuses Esophageal reflux documented in this encounter Care Teams Brush Or Broom Cutter Relationship Specialty Start Date End Date Charles Delgadillo MD [address] [place] [phone] PCP - General Family Practice 09/05/10 documented as of this encounter
--- OUTSIDE RECORDS SUMMARY | 2025-09-20 14:44 | XMS_ITS | Encounter Summary ---
Author Organization [facility] Address [address] [place] [address] Care Team Providers Care Claims Consultant Name Role Phone Charles Delgadillo MD Primary Care Provider [phone] Encounter Details Date Type Department Care Team (Late st Contact Info) Description 10/16/1999 Outpatient Historical [facility] Rheumatology- [facility] [address] [place] [address] Mark Butler DO [address] [facility] [address] [place] [address] Myalgia and myositis, unspecified (Primary Dx) Social History Tobacco Use Types Packs/Day Years Used Date Smoking Tobacco: Never Assessed Comments Unknown Sex and Gender Information Value Date Recorded Sex Assigned at Not on file Legal Sex Female 5: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
--- OUTSIDE RECORDS SUMMARY | 2025-09-20 14:44 | XMS_ITS | Encounter Summary ---
Author Organization [facility] Address [address] [place] [address] Care Team Providers Care Hotel Supplies Salesperson Name Role Phone Charles Delgadillo MD Primary Care Provider [phone] Encounter Details Date Type Department Care Team (Latest Contact Info) Description 06/24/2000 Outpatient [facility] Medicine [place] [address] [facility] 60 [place] [phone] Thomas Anne MD [address] [phone] Myalgia and myositis, unspecified (Primary Dx); Depressive disorder, not elsewhere classified Social History Tobacco Use Types Packs/Day Years Used Date Smoking Tobacco: Never Assessed Comments Unknown Sex and Gender Information Value Date Recorded Sex Assigned at Not on file Legal Sex Female 5:59 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
--- OUTSIDE RECORDS SUMMARY | 2025-09-20 14:44 | XMS_ITS | Encounter Summary ---
Author Organization [facility] Address [address] [place] [address] Care Team Providers Care Health Information Provider Name Role Phone Charles Delgadillo MD Primary Care Provider [phone] Encounter Details Date Type Department Care Team (Late st Contact Info) Description 01/12/2000 Outpatient Historical [facility] Rheumatology- 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
--- OUTSIDE RECORDS SUMMARY | 2025-09-20 14:44 | XMS_ITS | Encounter Summary ---
Author Organization [facility] Address [address] [place] [address] Care Team Providers Care Community Resource Officer Name Role Phone Charles Delgadillo MD Primary Care Provider [phone] Reason for Referral * Radiology Services (Routine) - Closed Specialty Diagnoses / Procedures Referred By Contac t Referred To Contact Diagnoses Lumbosacral spondylosis without myelopathy Procedures XR FLUORO NEEDLE GUIDANCE SPINE Ashu Caldwell MD Phone: tel: fax: Referral ID Status Reason Start Date Expiration Date Visits Re quested Visits Authorized [id number] Closed 10/28/2018 11/28/2019 1 1 N SERVICES MANAGER Encounter Details Date Type Department Care Team (Late st Contact Info) Description 10/28/2018 Ancillary Orders [facility] Pain Management Procedures [place] [address] [place] [address] [place] [address] [facility] [address] [place] [address] Lumbosacral spondylosis without myelopathy Social History Tobacco Use Types Packs/Day Years Used Date Smoking Tobacco: Never Smokeless Tobacco: Never Alcohol Use Standard Drinks/Week Comments No 0 (1 standard drink = 0.6 oz pur e alcohol) Comments No Sex and Gender Information Value Date Recorded Sex Assigned at Not on file Legal Sex Female 5:59 AM HUMAN SERVICES MANAGER Gender Identity Not on file Sexual Orientation Not on file 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 Exam was auto-finalized. 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
--- OUTSIDE RECORDS SUMMARY | 2025-09-20 14:44 | XMS_ITS | Encounter Summary ---
Author Organization [facility] Address [address] [place] [address] Care Team Providers Care Rn Ortho Name Role Phone Charles Delgadillo MD Primary Care Provider [phone] Encounter Details Date Type Department Care Team (Latest Contact Info) Description 09/19/1999 Outpatient Historical [facility] Family Medicine [address] [phone] Jameel Rodriguez DO NO ADDRESS ON FILE Pneumonia, organism unspecified(486) (Primary Dx) Social History Tobacco Use Types Packs/Day Years Used Date Smoking Tobacco: Never Assessed Comments Unknown Sex and Gender Information Value Date Recorded Sex Assigned at Not on file Legal 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
--- OUTSIDE RECORDS SUMMARY | 2025-09-20 14:44 | XMS_ITS | Encounter Summary ---
Author Organization [facility] Address [address] [place] [address] Care Team Providers Care Vp Global Marketing Solutions Name Role Phone Charles Delgadillo MD Primary Care Provider [phone] Encounter Details Date Type Department Care Team (Latest Contact Info) Description 03/11/2001 Outpatient [facility] Family Medicine [place] [address] [facility] [address] [place] [phone] Thomas Anne MD [address] [phone] Sprain of ankle, unspecified site (Primary Dx) Social History Tobacco Use Types Packs/Day Years Used Date Smoking Tobacco: Never Assessed Comments Unknown Sex and Gender Information Value Date Recorded Sex Assigned at Not on file Legal Sex Female 5:59 AM 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
--- OUTSIDE RECORDS SUMMARY | 2025-09-20 14:44 | XMS_ITS | Encounter Summary ---
Author Organization [facility] Address [address] [place] [address] Care Team Providers Care Milk And Cream Grader Name Role Phone Charles Delgadillo MD Primary Care Provider [phone] Encounter Details Date Type Department Care Team (Latest Contact Info) Description 05/28/2000 Outpatient [facility] Family Medicine [place] [address] [facility] [address] [place] [address] Thomas Anne MD [address] [phone] Cervicalgia (Primary Dx); CVA Social History Tobacco Use Types Packs/Day Years Used Date Smoking Tobacco: Never Assessed Comments Unknown Sex and Gender Information Value Date Recorded Sex Assigned at Not on file 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
--- OUTSIDE RECORDS SUMMARY | 2025-09-20 14:44 | XMS_ITS | Encounter Summary ---
Author Organization [facility] Address [address] [place] [address] Care Team Providers Care Assistant Professor Of Biology Name Role Phone Charles Delgadillo MD Primary Care Provider [phone] Encounter Details Date Type Department Care Team (Latest Contact Info) Description 06/03/2001 Outpatient [facility] Medicine [place] [address] [facility] [address] [place] [address] Thomas Anne MD [address] [address] Dyshidrosis (Primary Dx); Headache(784.0) Social History Tobacco Use Types Packs/Day Years Used Date Smoking Tobacco: Never Assessed Comments Unknown Sex and Gender Information Value Date Recorded Sex Assigned at Not on file Legal Sex Female 5:59 AM ARCHITECT Gender Identity Not on file Sexual Orientation Not on file documented as of this encounter Plan of Treatment Not on file documented as of this encounter Visit Diagnoses Diagnosis Dyshidrosis- Primary Headache(784.0) Headache documented in this encounter Care Teams Assistant Professor Of Biology Relationship Specialty Start Date End Date Charles Delgadillo MD [address] [place] [phone] PCP - General Family Practice 09/05/10 documented as of this encounter
--- OUTSIDE RECORDS SUMMARY | 2025-09-20 14:44 | XMS_ITS | Encounter Summary ---
Author Organization [facility] Address [address] [place] [address] Care Team Providers Care Town Manager Name Role Phone Charles Delgadillo MD Primary Care Provider [phone] Encounter Details Date Type Department Care Team (Latest Contact Info) Description 04/23/2000 Outpatient [facility] Medicine [place] [address] [facility] 60 [place] [address] Thomas Anne MD [address] [address] Dizziness and giddiness (Primary Dx); CVA Social History Tobacco Use Types Packs/Day Years Used Date Smoking Tobacco: Never Assessed Comments Unknown Sex and Gender Information Value Date Recorded Sex Assigned at Not on file Legal Sex Female 5:59 AM MARKET SUPERINTENDENT Gender Identity Not on file Sexual Orientation Not on file documented as of this encounter Plan of Treatment Not on file documented as of this encounter Visit Diagnoses Diagnosis Dizziness and giddiness- Primary CVA Unspecified cerebral artery occlusion with cerebral infarction documented in this encounter Care Teams Town Manager Relationship Specialty Start Date End Date Charles Delgadillo MD [address] [place] [phone] PCP - General Family Practice 09/05/10 documented as of this encounter
--- OUTSIDE RECORDS SUMMARY | 2025-09-20 14:44 | XMS_ITS | Encounter Summary ---
Author Organization [facility] Address [address] [place] [address] Care Team Providers Care Property Assessment Monitor Name Role Phone Charles Delgadillo MD Primary Care Provider [phone] Encounter Details Date Type Department Care Team (Latest Contact Info) Description 07/12/2000 Outpatient [facility] Family Medicine [place] 104 [facility] 60 [place] [address] Thomas Anne MD [address] [address] Myalgia and myositis, unspecified (Primary Dx); Depressive disorder, not elsewhere classified; Need for prophylactic vaccination against Streptococcus pneumoniae (pneumococcus) Social History Tobacco Use Types Packs/Day Years Used Date Smoking Tobacco: Never Assessed Comments Unknown Sex and Gender Information Value Date Recorded Sex Assigned at Not on file Legal Sex Female 5:59 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
--- OUTSIDE RECORDS SUMMARY | 2025-09-20 14:44 | XMS_ITS | Encounter Summary ---
Author Organization [facility] Address [address] [place] [address] Care Team Providers Care Biochemistry Specialist Name Role Phone Charles Delgadillo MD Primary Care Provider [phone] Encounter Details Date Type Department Care Team (Latest Contact Info) Description 03/20/1999 Outpatient Historical [facility] Rheumatology- [facility] [address] [place] [phone] Myalgia and myositis, unspecified (Primary Dx); Sleep disturbance, unspecified Social History Tobacco Use Types Packs/Day Years Used Date Smoking Tobacco: Never Assessed Comments Unknown Sex and Gender Information Value Date Recorded Sex Assigned at Not on file Legal Sex Female 5:59 AM REBRANDER Gender Identity Not on file Sexual Orientation Not on file documented as of this encounter Plan of Treatment Not on file documented as of this encounter Visit Diagnoses Diagnosis Myalgia and myositis, unspecified- Primary Mylagia and myositis, unspecified Sleep disturbance, unspecified documented in this encounter Care Teams Biochemistry Specialist Relationship Specialty Start Date End Date Charles Delgadillo MD [address] [place] [address] PCP - General Family Practice 09/05/10 documented as of this encounter
--- OUTSIDE RECORDS SUMMARY | 2025-09-20 14:44 | XMS_ITS | Encounter Summary ---
Author Organization [facility] Address [address] [place] [address] Care Team Providers Care Carton Liner Name Role Phone Norman Caldera MD Primary Care Provider [phone] Reason for Visit * Reason Onset Date Comments Need records faxed 04/25/2021 Encounter Details Date Type Department Care Team (Late st Contact Info) Description 04/25/[address] [facility] Contact Center Clinics [address] [facility] [address] [place] [address] Charles Delgadillo MD [address] [place] [phone] Need records faxed Social History Tobacco Use Types Packs/Day Years Used Date Smoking Tobacco: Never Smokeless Tobacco: Never Alcohol Use Standard Drinks/Week Comments No 0 (1 standard drink = 0.6 oz pur e alcohol) Comments No Sex and Gender Information Value Date Recorded Sex Assigned at Not on file Legal Sex Female 2:09 AM INTELLIGENCE OFFICER Gender Identity Not on file Sexual [...] st Contact Info) Description 11/16/2025 11:40 AM INTELLIGENCE OFFICER Office Visit [address] [address] Norman Caldera MD [address] [address] 02/01/2026 9:30 AM CDT Office Visit [facility] Gastroenterology- [place] [address] [address] Deepthi Ray, AD COPY WRITER [address] [address] documented as of this encounter Visit Diagnoses Not on filedocumented in this encounter Care Teams Carton Liner Relationship Specialty Start Date End Date Norman Caldera MD [address] [place] [address] PCP - General Family Practice 09/06/23 documented as of this encounter
--- OUTSIDE RECORDS SUMMARY | 2025-09-20 14:44 | XMS_ITS | Encounter Summary ---
Author Organization [facility] Address [address] [place] [address] Care Team Providers Care General Administrator Name Role Phone Charles Delgadillo MD Primary Care Provider Encounter Details Date Type Department Care Team (Latest Contact Info) Description 08/29/2001 Outpatient [facility] Family Medicine [place] 104 [facility] 60 [place] [address] Thomas Anne MD [address] [address] MYALGIA AND MYOSITIS NOS (Primary Dx); ABN SERUM ENZY LEVEL NEC Social History Tobacco Use Types Packs/Day Years Used Date Smoking Tobacco: Never Assessed Comments Unknown Sex and Gender Information Value Date Recorded Sex Assigned at Not on file Legal Sex Female 5:59 AM CERTIFIED NOVELL ADMINISTRATOR Gender Identity Not on file Sexual Orientation Not on file documented as of this encounter Plan of Treatment Not on file documented as of this encounter Visit Diagnoses Diagnosis Myalgia and myositis, unspecified- Primary Mylagia and myositis, unspecified Other nonspecific abnormal serum enzyme levels documented in this encounter Care Teams General Administrator Relationship Specialty Start Date End Date Charles Delgadillo MD [address], [place] [address] PCP - General Family Practice 09/05/10 documented as of this encounter
--- OUTSIDE RECORDS SUMMARY | 2025-09-20 14:44 | XMS_ITS | Encounter Summary ---
Author Organization [facility] Address [address] [place] [address] Care Team Providers Care Service Officer Name Role Phone Charles Delgadillo MD Primary Care Provider [phone] Reason for Referral * Outpatient Services (Routine) - Closed Specialty Diagnoses / Procedures Referred By Contac t Referred To Contact Radiology Diagnoses Other screening mammogram Procedures MAMMO DIGITIZED STUDY Shanika Zavala FNP [address] [place] [address] Phone: tel: fax: [facility] [address] [address] Phone: tel: fax: Referral ID Status Reason Start Date Expiration Date Visits Re quested Visits Authorized [id number] Closed 04/07/2012 04/07/2013 1 1 * Outpatient Services (Routine) - Closed Specialty Diagnoses / Procedures Referred By Contchrissy t Referred To Contact Radiology Diagnoses Other screening mammogram Procedures MAMMO DIGITIZED STUDY Shanika Zavala FNP [address] [place] [address] Phone: tel: fax: [facility] [address] [place] [address] Phone: tel: fax: Referral ID Status Reason Start Date Expiration Date Visits Re quested Visits Authorized [id number] Closed 04/07/2012 04/07/2013 1 1 Encounter Details Date Type Department Care Team (Latest Contact Info) Description 04/07/2012 Ancillary Orders [facility] Mobile Mammography [place] [address] [place] [address] Shanika Zavala FNP [address] [place] [address] Other screening mammogram Social History Tobacco Use Types Packs/Day Years Used Date Smoking Tobacco: Never Smokeless Tobacco: Never Alcohol Use Standard Drinks/Week Comments No 0 (1 standard drink = 0.6 oz pur e alcohol) Comments No Sex and Gender Information Value Date Recorded Sex Assigned at Not on file Legal Sex Female 5:59 AM STATION CHIEF Gender Identity Not on file Sexual Orientation Not on file 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 Exam was auto-finalized. us Shanika Zavala VP [employer] ORDERABLES Final Result documented in this encounter Visit Diagnoses Diagnosis Other screening mammogram Other screening mammogram Other screening mammogram documented in this encounter Care Teams Service Officer Relationship Specialty Start Date End Date Charles Delgadillo MD [address] [place] [phone] PCP - General Family Practice 09/05/10 documented as of this encounter
--- OUTSIDE RECORDS SUMMARY | 2025-09-20 14:44 | XMS_ITS | Encounter Summary ---
Author Organization [facility] Address [address] [place] [address] Care Team Providers Care Spa Director Name Role Phone Charles Delgadillo MD Primary Care Provider [phone] Encounter Details Date Type Department Care Team (Late st Contact Info) Description 04/11/2000 Outpatient Historical [facility] Rheumatology- [facility] [address] [place] [address] Mark Butler DO [address] [facility] [address] [place] [address] Rheumatism, unspecified and fibrositis (Primary Dx); Sleep disturbance, unspecified Social History Tobacco Use Types Packs/Day Years Used Date Smoking Tobacco: Never Assessed Comments Unknown Sex and Gender Information Value Date Recorded Sex Assigned at Not on file Legal Sex Female 5:59 AM ASSEMBLER TYPE BAR AND SEGMENT Gender Identity Not on file Sexual Orientation Not on file documented as of this encounter Plan of Treatment Not on file documented as of this encounter Visit Diagnoses Diagnosis Rheumatism, unspecified and fibrositis- Primary Sleep disturbance, unspecified documented in this encounter Care Teams Spa Director Relationship Specialty Start Date End Date Charles Delgadillo MD [address] [place] [phone] PCP - General Family Practice 09/05/10 documented as of this encounter
--- OUTSIDE RECORDS SUMMARY | 2025-09-20 14:44 | XMS_ITS | Encounter Summary ---
Author Organization [facility] Address [address] [place] [address] Care Team Providers Care Bicycle Fitter Name Role Phone Charles Delgadillo MD Primary Care Provider [phone] Reason for Referral * Radiology Services (Routine) - Closed Specialty Diagnoses / Procedures Referred By Contchrissy t Referred To Contact Diagnoses Visit for screening mammogram Procedures MAMMO 3D SCREEN BILATERAL MOBILE Charles Delgadillo MD [address] [place] [address] Phone: tel: fax: Referral ID Status Reason Start Date Expiration Date Visits Re quested Visits Authorized [id number] Closed 11/06/2018 12/07/2019 1 1 ASTONE APPLICATOR Encounter Details Date Type Department Care Team (Latest Contact Info) Description 11/06/2018 Ancillary Orders [facility] 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
--- OUTSIDE RECORDS SUMMARY | 2025-09-20 14:44 | XMS_ITS | Encounter Summary ---
Author Organization [facility] Address [address] [place] [address] Care Team Providers Care Environmental Science Technician Name Role Phone Charles Delgadillo MD Primary Care Provider Encounter Details Date Type Department Care Team (Latest Contact Info) Description 09/05/1999 Outpatient Historical [facility] Family Medicine [address] [phone] Jameel Rodriguez, NO ADDRESS ON FILE Unspecified sinusitis (chronic) (Primary Dx); Acute bronchitis Social History Tobacco Use Types Packs/Day Years Used Date Smoking Tobacco: Never Assessed Comments Unknown Sex and Gender Information Value Date Recorded Sex Assigned at Not on file Legal Sex Female 5:59 AM ADMINISTRATIVE MEDICAL DIRECTOR Gender Identity Not on file Sexual Orientation Not on file documented as of this encounter Plan of Treatment Not on file documented as of this encounter Visit Diagnoses Diagnosis Unspecified sinusitis (chronic)- Primary Acute bronchitis documented in this encounter Care Teams Environmental Science Technician Relationship Specialty Start Date End Date Charles Delgadillo MD [address] [place] [address] PCP - General Family Practice 09/05/10 documented as of this encounter
--- OUTSIDE RECORDS SUMMARY | 2025-09-20 14:44 | XMS_ITS | Encounter Summary ---
Author Organization [facility] Address [address] [place] [address] Care Team Providers Care Software Application Tester Name Role Phone Charles Delgadillo MD Primary Care Provider Encounter Details Date Type Department Care Team (Latest Contact Info) Description 01/28/2001 Outpatient [facility] Family Medicine [place] 104 [facility] [address] [place] [address] Thomas Anne MD [address] [address] Other specified arthropathy, site unspecified (Primary Dx); Edema Social History Tobacco Use Types Packs/Day Years Used Date Smoking Tobacco: Never Assessed Comments Unknown Sex and Gender Information Value Date Recorded Sex Assigned at Not on file Legal Sex Female 5:59 AM LEVI MAKER Gender Identity Not on file Sexual Orientation Not on file documented as of this encounter Plan of Treatment Not on file documented as of this encounter Visit Diagnoses Diagnosis Other specified arthropathy, site unspecified- Primary Edema documented in this encounter Care Teams Software Application Tester Relationship Specialty Start Date End Date Charles Delgadillo MD [address] [place] [address] PCP - General Family Practice 09/05/10 documented as of this encounter
--- OUTSIDE RECORDS SUMMARY | 2025-09-20 14:44 | XMS_ITS | Encounter Summary ---
Author Organization [facility] Address [address] 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
--- OUTSIDE RECORDS SUMMARY | 2025-09-20 14:44 | XMS_ITS | Encounter Summary ---
Author Organization [facility] Address [address] [place] [address] Care Team Providers Care Computer Operations Manager Name Role Phone Charles Delgadillo MD Primary Care Provider [phone] Encounter Details Date Type Department Care Team (Latest Contact Info) Description 08/18/2018 Ancillary Orders [facility] [address] [address] Charles Delgadillo MD [address] [place] [address] Visit for screening mammogram Social History Tobacco Use Types Packs/Day Years Used Date Smoking Tobacco: Never Smokeless Tobacco: Never Alcohol Use Standard Drinks/Week Comments No 0 (1 standard drink = 0.6 oz pur e alcohol) Comments No Sex and Gender Information Value Date Recorded Sex Assigned at Not on file Legal Sex Female 5:59 AM KNOWLEDGE MANAGER Gender Identity Not on file Sexual Orientation Not on file 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
--- OUTSIDE RECORDS SUMMARY | 2025-09-20 14:44 | XMS_ITS | Encounter Summary ---
Author Organization [facility] Address [address] [place] [address] Care Team Providers Care Hall Monitor Name Role Phone Charles Delgadillo MD Primary Care Provider [phone] Encounter Details Date Type Department Care Team (Latest Contact Info) Description 11/21/2000 Outpatient [facility] Family Medicine [place] [address] [facility] [address] [place] [address] Thomas Anne MD [address] [address] Cramp of limb (Primary Dx); Pain in limb Social History Tobacco Use Types Packs/Day Years Used Date Smoking Tobacco: Never Assessed Comments Unknown Sex and Gender Information Value Date Recorded Sex Assigned at Not on file Legal Sex Female 5:59 AM INSTRUMENT SETTER Gender Identity Not on file Sexual Orientation Not on file documented as of this encounter Plan of Treatment Not on file documented as of this encounter Visit Diagnoses Diagnosis Cramp of limb- Primary Pain in limb Pain in soft tissues of limb documented in this encounter Care Teams Hall Monitor Relationship Specialty Start Date End Date Charles Delgadillo MD [address] [place] [address] PCP - General Family Practice 12/14/10 documented as of this encounter
--- OUTSIDE RECORDS SUMMARY | 2025-09-20 14:44 | XMS_ITS | Encounter Summary ---
Author Organization [facility] Address [address] [place] [address] Care Team Providers Care Market Development Trainer Name Role Phone Charles Delgadillo MD Primary Care Provider [phone] Encounter Details Date Type Department Care Team (Latest Contact Info) Description 04/09/2000 Outpatient [facility] Medicine [place] 104 [facility] 60 [place] [phone] Thomas Anne MD [address] [phone] Pain in joint, shoulder region (Primary Dx); Myalgia and myositis, unspecified Social History Tobacco Use Types Packs/Day Years Used Date Smoking Tobacco: Never Assessed Comments Unknown Sex and Gender Information Value Date Recorded Sex Assigned at Not on file Legal Sex Female 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 CONTROLLER Gender Identity Not on file Sexual Orientation Not on file documented as of this encounter Plan of Treatment Not on file documented as of this encounter Visit Diagnoses Diagnosis Pain in joint, shoulder region- Primary Myalgia and myositis, unspecified Mylagia and myositis, unspecified documented in this encounter Care Teams Market Development Trainer Relationship Specialty Start Date End Date Charles Delgadillo MD [address], [place] [address] PCP - General Family Practice 09/05/10 documented as of this encounter
--- OUTSIDE RECORDS SUMMARY | 2025-09-20 14:44 | XMS_ITS | Encounter Summary ---
Author Organization [employer] [facility] Address [address] [place] [address] Care Team Providers Care Rattle Leak And Squeak Repairer Name Role Phone Charles Delgadillo MD Primary Care Provider Reason for Referral * Outpatient Services (Routine) - Closed Specialty Diagnoses / Procedures Referred By Tisha troncoso Referred To Contact Oncology Diagnoses Other screening mammogram Procedures MAMMO DIGITAL SCREEN BILAT MOBILE Shanika Zavala FNP [address] [place] [phone] Phone: tel: fax: [facility] [place] [id number] [address] Phone: tel: Referral ID Status Reason Start Date Expiration Date Visits Re quested Visits Authorized [id number] Closed 03/20/2012 03/20/2013 1 1 Encounter Details Date Type Department Care Team (Latest Contact Info) Description 03/20/2012 Ancillary Orders [facility] [place] [address] [address] Shanika Zavala FNP [address] [place] [phone] Other screening mammogram Social History Tobacco Use Types Packs/Day Years Used Date Smoking Tobacco: Never Smokeless Tobacco: Never Alcohol Use Standard Drinks/Week Comments No 0 (1 standard drink = 0.6 oz pur e alcohol) Comments No Sex and Gender Information Value Date Recorded Sex Assigned at Not on file Legal Sex Female 5:59 AM PERINATAL INSTRUCTOR Gender Identity Not on file Sexual Orientation Not on file 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 us Shanika Zavala CUSTOMER SERVICE MANAGER MAMMO ORDERABLES Final Result documented in this encounter Visit Diagnoses Diagnosis Other screening mammogram Other screening mammogram documented in this encounter Care Teams Rattle Leak And Squeak Repairer Relationship Specialty Start Date End Date Charles Delgadillo MD [address] [place] [address] PCP - General Family Practice 09/05/10 documented as of this encounter
--- OUTSIDE RECORDS SUMMARY | 2025-09-20 14:44 | XMS_ITS | Encounter Summary ---
Author Organization [facility] Address [address] [facility] Attn: Epic Prelude ADT ANGELICA DAVIS [address] Care Team Providers Care Manager Respiratory Care Name Role Phone Charles Delgadillo MD Primary Care Provider [phone] Encounter Details Date Type Department Care Team (Late st Contact Info) Description 03/27/2000 Outpatient Historical Tristen Aragon MD [address] [place] [address] Social History Tobacco Use Types Packs/Day Years Used Date Smoking Tobacco: Never Assessed Comments Unknown Sex and Gender Information Value Date Recorded Sex Assigned at Not on file Legal Sex Female 5:59 AM SAWMILL HAND Gender Identity Not on file Sexual Orientation Not on file documented as of this encounter Plan of Treatment Not on file documented as of this encounter Visit Diagnoses Not on filedocumented in this encounter Care Teams Manager Respiratory Care Relationship Specialty Start Date End Date Charles Delgadillo MD [address] [place] [address] PCP - General Family Practice 09/05/10 documented as of this encounter
--- OUTSIDE RECORDS SUMMARY | 2025-09-20 14:44 | XMS_ITS | Encounter Summary ---
Author Organization [employer] [facility] Address [address] [place] [address] Care Team Providers Care Cork Insulator Helper Name Role Phone Charles Delgadillo MD Primary Care Provider [phone] Reason for Referral * Outpatient Services (Routine) - Closed Specialty Diagnoses / Procedures Referred By Tisha troncoso Referred To Contact Oncology Diagnoses Other screening mammogram Procedures MAMMO DIGITAL SCREEN BILAT MOBILE Shanika Zavala FNP [address] [place] [phone] Phone: tel: fax: [employer] [facility] [address] [address] Phone: tel: Referral ID Status Reason Start Date Expiration Date Visits Re quested Visits Authorized [id number] Closed 05/04/2013 06/04/2014 1 1 Encounter Details Date Type Department Care Team (Latest Contact Info) Description 05/04/2013 Ancillary Orders [employer] [facility] [address] [address] Shanika Zavala FNP [address] [place] [phone] Other screening mammogram (Primary Dx) Social History Tobacco Use Types Packs/Day Years Used Date Smoking Tobacco: Never Smokeless Tobacco: Never Alcohol Use Standard Drinks/Week Comments No 0 (1 standard drink = 0.6 oz pur e alcohol) Comments No Sex and Gender Information Value Date Recorded Sex Assigned at Not on file Legal Sex Female 5:59 AM LAST TRIMMER Gender Identity Not on file Sexual [...] since the prior mammogram(s). us Shanika Zavala GROUND SCHOOL INSTRUCTOR MAMMO ORDERABLES Final Result documented in this encounter Visit Diagnoses Diagnosis Other screening mammogram- Primary Other screening mammogram documented in this encounter Care Teams Cork Insulator Helper Relationship Specialty Start Date End Date Charles Delgadillo MD [address] [place] [address] PCP - General Family Practice 09/05/10 documented as of this encounter
--- OUTSIDE RECORDS SUMMARY | 2025-09-20 14:44 | XMS_ITS | Encounter Summary ---
Author Organization [facility] Address [address] [place] [address] Care Team Providers Care Bitumen Plant Operator Name Role Phone Charles Delgadillo MD Primary Care Provider [phone] Encounter Details Date Type Department Care Team (Late st Contact Info) Description 09/11/2001 Outpatient Historical [facility] Rheumatology- [facility] [place] [address] [place] [address] Mark Butler DO [address] [facility] [address] [place] [address] MUSCLE/LIGAMENT DIS NOS (Primary Dx); ABN SERUM ENZY LEVEL NEC; Elevated sediment rate Social History Tobacco Use Types Packs/Day Years Used Date Smoking Tobacco: Never Assessed Comments Unknown Sex and Gender Information Value Date Recorded Sex Assigned at Not on file Legal Sex Female 5:59 AM ENDLESS STEAMER TENDER Gender Identity Not on file Sexual Orientation Not on file documented as of this encounter Plan of Treatment Not on file documented as of this encounter Visit Diagnoses Diagnosis Unspecified disorder of muscle, ligament, and fascia- Primary Other nonspecific abnormal serum enzyme levels Elevated sediment rate Elevated sedimentation rate documented in this encounter Care Teams Bitumen Plant Operator Relationship Specialty Start Date End Date Charles Delgadillo MD [address], [place] [address] PCP - General Family Practice 09/05/10 documented as of this encounter
--- OUTSIDE RECORDS SUMMARY | 2025-09-20 14:44 | XMS_ITS | Encounter Summary ---
Author Organization [facility] Address [address] [place] [address] Care Team Providers Care Underground Miner Name Role Phone Charles Delgadillo MD Primary Care Provider [phone] Encounter Details Date Type Department Care Team (Latest Contact Info) Description 09/10/2000 Outpatient [facility] Family Medicine [place] 104 [facility] 60 [place] [address] Thomas Anne MD [address] [phone] Other and unspecified hyperlipidemia (Primary Dx); Osteoarthrosis, unspecified whether generalized or localized, unspecified site Social History Tobacco Use Types Packs/Day Years Used Date Smoking Tobacco: Never Assessed Comments Unknown Sex and Gender Information Value Date Recorded Sex Assigned at Not on file Legal Sex Female 5:59 AM AIRCRAFT INSTRUMENT TESTER Gender Identity Not on file Sexual Orientation Not on file documented as of this encounter Plan of Treatment Not on file documented as of this encounter Visit Diagnoses Diagnosis Other and unspecified hyperlipidemia- Primary Osteoarthrosis, unspecified whether generalized or localized, unspecified site documented in this encounter Care Teams Underground Miner Relationship Specialty Start Date End Date Charles Delgadillo MD [address], [place] [address] PCP - General Family Practice 09/05/10 documented as of this encounter
--- OUTSIDE RECORDS SUMMARY | 2025-09-20 14:44 | XMS_ITS | Encounter Summary ---
Author Organization [facility] Address [address] [place] [address] Care Team Providers Care Starch And Prosize Mixer Name Role Phone Charles Delgadillo MD Primary Care Provider [phone] Encounter Details Date Type Department Care Team (Latest Contact Info) Description 01/26/2000 Outpatient [facility] Medicine [place] 104 [facility] 60 [place] [address] Thomas Anne MD [address] [address] Myalgia and myositis, unspecified (Primary Dx); Dizziness and giddiness Social History Tobacco Use Types Packs/Day Years Used Date Smoking Tobacco: Never Assessed Comments Unknown Sex and Gender Information Value Date Recorded Sex Assigned at Not on file Legal Sex Female 5:59 AM SENIOR MARKET RESEARCH ANALYST Gender Identity Not on file Sexual Orientation Not on file documented as of this encounter Plan of Treatment Not on file documented as of this encounter Visit Diagnoses Diagnosis Myalgia and myositis, unspecified- Primary Mylagia and myositis, unspecified Dizziness and giddiness documented in this encounter Care Teams Starch And Prosize Mixer Relationship Specialty Start Date End Date Charles Delgadillo MD [address], [place] [address] PCP - General Family Practice 09/05/10 documented as of this encounter
--- OUTSIDE RECORDS SUMMARY | 2025-09-20 14:44 | XMS_ITS | Encounter Summary ---
Author Organization [facility] Address [address] [place] [address] Care Team Providers Care Cured Meats Supervisor Name Role Phone Charles Delgadillo MD Primary Care Provider [phone] Encounter Details Date Type Department Care Team (Latest Contact Info) Description 10/10/2000 Outpatient [facility] Family Medicine [place] 104 [facility] 60 [place] [address] Thomas Anne MD [address] [address] Myalgia and myositis, unspecified (Primary Dx); Other specified arthropathy, site unspecified Social History Tobacco Use Types Packs/Day Years Used Date Smoking Tobacco: Never Assessed Comments Unknown Sex and Gender Information Value Date Recorded Sex Assigned at Not on file Legal Sex Female 5:59 AM OFFSHORE DIVER Gender Identity Not on file Sexual Orientation Not on file documented as of this encounter Plan of Treatment Not on file documented as of this encounter Visit Diagnoses Diagnosis Myalgia and myositis, unspecified- Primary Mylagia and myositis, unspecified Other specified arthropathy, site unspecified documented in this encounter Care Teams Cured Meats Supervisor Relationship Specialty Start Date End Date Charles Delgadillo MD [address] [place] [phone] PCP - General Family Practice 09/05/10 documented as of this encounter
--- OUTSIDE RECORDS SUMMARY | 2025-09-20 14:44 | XMS_ITS | Encounter Summary ---
Author Organization [facility] Address [address] [facility] Attn: Epic Prelude ADT ANGELICA DAVIS [address] Care Team Providers Care Networking Engineer Name Role Phone Charles Delgadillo MD Primary Care Provider [phone] Encounter Details Date Type Department Care Team (Late st Contact Info) Description 08/29/2001 Outpatient Historical Thomas Anne MD [address] [phone] Social History Tobacco Use Types Packs/Day Years Used Date Smoking Tobacco: Never Assessed Comments Unknown Sex and Gender Information Value Date Recorded Sex Assigned at Not on file Legal Sex Female 5:59 AM LINING PRESSER Gender Identity Not on file Sexual Orientation Not on file documented as of this encounter Plan of Treatment Not on file documented as of this encounter Visit Diagnoses Not on filedocumented in this encounter Care Teams Networking Engineer Relationship Specialty Start Date End Date Charles Delgadillo MD [address] [place] [address] PCP - General Family Practice 09/05/10 documented as of this encounter
--- OUTSIDE RECORDS SUMMARY | 2025-09-20 14:44 | XMS_ITS | Encounter Summary ---
Author Organization [facility] Address [address] [place] [address] Care Team Providers Care Make Ready Worker Name Role Phone Charles Delgadillo MD Primary Care Provider [phone] Encounter Details Date Type Department Care Team (Latest Contact Info) Description 12/17/2000 Outpatient [facility] Family Medicine [place] 104 [facility] 60 [place] [address] Thomas Anne MD [address] [address] Allergy, unspecified not elsewhere classified (Primary Dx); Other specified arthropathy, site unspecified Social History Tobacco Use Types Packs/Day Years Used Date Smoking Tobacco: Never Assessed Comments Unknown Sex and Gender Information Value Date Recorded Sex Assigned at Not on file Legal Sex Female 5:59 AM HUMAN RESOURCES TRAINEE Gender Identity Not on file Sexual Orientation Not on file documented as of this encounter Plan of Treatment Not on file documented as of this encounter Visit Diagnoses Diagnosis Allergy, unspecified not elsewhere classified- Primary Other specified arthropathy, site unspecified documented in this encounter Care Teams Make Ready Worker Relationship Specialty Start Date End Date Charles Delgadillo MD [address] [place] [phone] PCP - General Family Practice 09/05/10 documented as of this encounter
--- OUTSIDE RECORDS SUMMARY | 2025-09-20 14:44 | XMS_ITS | Encounter Summary ---
Author Organization [facility] Address [address] [place] [address] Care Team Providers Care Fagoter Name Role Phone Charles Delgadillo MD Primary Care Provider [phone] Encounter Details Date Type Department Care Team (Latest Contact Info) Description 09/17/2000 Outpatient Historical [facility] Family Medicine [place] 104 [facility] 60 [place] [phone] Thomas Anne MD [address] [facility] 200 [place] [phone] Other specified urticaria (Primary Dx) Social History Tobacco Use Types Packs/Day Years Used Date Smoking Tobacco: Never Assessed Comments Unknown Sex and Gender Information Value Date Recorded Sex Assigned at Not on file Legal Sex Female 5:59 AM NIGHT CLERK Gender Identity Not on file Sexual Orientation Not on file documented as of this encounter Plan of Treatment Not on file documented as of this encounter Visit Diagnoses Diagnosis Other specified urticaria- Primary documented in this encounter Care Teams Fagoter Relationship Specialty Start Date End Date Charles Delgadillo MD [address] [place] [address] PCP - General Family Practice 09/05/10 documented as of this encounter
--- OUTSIDE RECORDS SUMMARY | 2025-09-20 14:44 | XMS_ITS | Encounter Summary ---
Author Organization [facility] Address [address] [place] [address] Care Team Providers Care Direct Mail Clerk Name Role Phone Charles Delgadillo MD Primary Care Provider [phone] Encounter Details Date Type Department Care Team (Latest Contact Info) Description 05/08/1999 Outpatient [facility] Medicine [place] 104 [facility] 60 [place] [address] Thomas Anne MD [address] [phone] Screening for malignant neoplasm of the cervix (Primary Dx); Myalgia and myositis, unspecified; Screening for malignant neoplasm of the rectum Social History Tobacco Use Types Packs/Day Years Used Date Smoking Tobacco: Never Assessed Comments Unknown Sex and Gender Information Value Date Recorded Sex Assigned at Not on file Legal Sex Female 5:59 AM RADIO DISC JOCKEY Gender Identity Not on file Sexual Orientation Not on file documented as of this encounter Plan of Treatment Not on file documented as of this encounter Visit Diagnoses Diagnosis Screening for malignant neoplasm of the cervix- Primary Myalgia and myositis, unspecified Mylagia and myositis, unspecified Screening for malignant neoplasm of the rectum documented in this encounter Care Teams Direct Mail Clerk Relationship Specialty Start Date End Date Charles Delgadillo MD [address] [place] [address] PCP - General Family Practice 09/05/10 documented as of this encounter
--- OUTSIDE RECORDS SUMMARY | 2025-09-20 14:44 | XMS_ITS | Encounter Summary ---
Author Organization [facility] Address [address] [place] [address] Care Team Providers Care Rental Sales Associate Name Role Phone Charles Delgadillo MD Primary Care Provider [phone] Encounter Details Date Type Department Care Team (Latest Contact Info) Description 05/01/1999 Outpatient [facility] Medicine [place] 104 [facility] 60 [place] [address] Thomas Anne MD [address] [address] Cervicalgia (Primary Dx); Myalgia and myositis, unspecified Social History Tobacco Use Types Packs/Day Years Used Date Smoking Tobacco: Never Assessed Comments Unknown Sex and Gender Information Value Date Recorded Sex Assigned at Not on file Legal Sex Female 5:59 AM PLYWOOD LAYUP LINE BACK FEEDER Gender Identity Not on file Sexual Orientation Not on file documented as of this encounter Plan of Treatment Not on file documented as of this encounter Visit Diagnoses Diagnosis Cervicalgia- Primary Myalgia and myositis, unspecified Mylagia and myositis, unspecified documented in this encounter Care Teams Rental Sales Associate Relationship Specialty Start Date End Date Charles Delgadillo MD [address] [place] [address] PCP - General Family Practice 09/05/10 documented as of this encounter
--- OUTSIDE RECORDS SUMMARY | 2025-09-20 14:44 | XMS_ITS | Encounter Summary ---
Author Organization [facility] Address [address] [place] [address] Care Team Providers Care Airport Ramp Supervisor Name Role Phone Norman Caldera MD Primary Care Provider Encounter Details Date Type Department Care Team (Late st Contact Info) Description 09/20/2025 Orders Only [facility] [address] [place] [address] Provider, Abstract NO ADDRESS ON FILE Social History Tobacco [...] worry about transportation for future doctor visits, tack picker medication, etc.? 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 [phone] Deepthi Ray NP [address] [place] [address] documented as of this encounter Goals Goal Patient Goal Type Associated Problems Recent Progress Patient-Stated? Author HYPERTENSIO N CARE PLAN GOAL Care Plan PALLAVI MYC HYPERTENSION CARE PLAN PROBLEM No Norman Caldera MD documented as of this encounter Procedures Procedure Name Priority Date/Time Associated Diagnosis Comments COMPREHENSIVE METABOLIC PANEL Routine 09/18/2025 11:09 AM DISHWASHING MACHINE REPAIRER documented in this encounter Results * COMPREHENSIVE METABOLIC PANEL (09/18/2025 11:09 AM DISHWASHING MACHINE REPAIRER) Blood us Abstract Provider CHEMISTRY ORDERABLES Final Res ult documented in this encounter Visit Diagnoses Not on filedocumented in this encounter Additional Health Concerns Active Problems Noted Date Diagnosed Date PALLAVI MYC HYPERTENSION CARE PLAN PROBLEM 4 documented as of this encounter Care Teams Airport Ramp Supervisor Relationship Specialty Start Date End Date Norman Caldera MD [address] [place] [phone] PCP - General Family Practice 09/06/23 documented as of this encounter
--- OUTSIDE RECORDS SUMMARY | 2025-09-20 14:44 | XMS_ITS | Encounter Summary ---
Author Organization [facility] Address [address] [facility] Attn: Epic Prelude ADT ANGELICA DAVIS [address] Care Team Providers Care Lead Vulcanizing Operator Name Role Phone Charles Delgadillo MD Primary Care Provider [phone] Encounter Details Date Type Department Care Team (Late st Contact Info) Description 10/10/2000 Outpatient Historical Thomas Anne MD [address] [phone] Social History Tobacco Use Types Packs/Day Years Used Date Smoking Tobacco: Never Assessed Comments Unknown Sex and Gender Information Value Date Recorded Sex Assigned at Not on file Legal Sex Female 5:59 AM ENGINEERING RECRUITER Gender Identity Not on file Sexual Orientation Not on file documented as of this encounter Plan of Treatment Not on file documented as of this encounter Visit Diagnoses Not on filedocumented in this encounter Care Teams Lead Vulcanizing Operator Relationship Specialty Start Date End Date Charles Delgadillo MD [address] [place] [address] PCP - General Family Practice 09/05/10 documented as of this encounter
--- OUTSIDE RECORDS SUMMARY | 2025-09-20 14:44 | XMS_ITS | Encounter Summary ---
Author Organization [facility] Address [address] [place] [address] Care Team Providers Care Pin Machine Tender Name Role Phone Charles Delgadillo MD Primary Care Provider [phone] Reason for Referral * Outpatient Services (Routine) - Closed Specialty Diagnoses / Procedures Referred By Tisha troncoso Referred To Contact Diagnoses Screening mammogram Procedures MAMMO SCREENING BILAT MOBILE Shanika Zavala FNP [address] [place] [address] Phone: tel: fax: Referral ID Status Reason Start Date Expiration Date Visits Re quested Visits Authorized [id number] Closed 04/04/2011 04/03/2012 1 1 Encounter Details Date Type Department Care Team (Late st Contact Info) Description 04/04/2011 Ancillary Orders [facility] [address] 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 Shanika Zavala DISTRIBUTION ENGINEERING TECHNOLOGIST MAMMO ORDERABLES Final Result documented in this encounter Visit Diagnoses Diagnosis Screening mammogram Other screening mammogram Screening mammogram Other screening mammogram documented in this encounter Care Teams Pin Machine Tender Relationship Specialty Start Date End Date Charles Delgadillo MD [address] [place] [address] PCP - General Family Practice 09/05/10 documented as of this encounter
[2025-09-20 14:45] VITALS: PULSE 70; O2SAT 94
--- OUTSIDE RECORDS SUMMARY | 2025-09-20 14:45 | XMS_ITS | Encounter Summary ---
Author Organization [facility] Address [address] [place] [address] Care Team Providers Care Bathing Suit Maker Name Role Phone Charles Delgadillo MD Primary Care Provider [phone] Encounter Details Date Type Department Care Team (Latest Contact Info) Description 10/06/2001 Outpatient Historical [facility] Family Medicine [place] 104 [facility] 60 [place] [phone] Thomas Anne MD [address] [phone] HYPERLIPIDEMIA NEC/NOS (Primary Dx) Social History Tobacco Use Types Packs/Day Years Used Date Smoking Tobacco: Never Assessed Comments Unknown Sex and Gender Information Value Date Recorded Sex Assigned at Not on file Legal Sex Female 5:59 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
--- OUTSIDE RECORDS SUMMARY | 2025-09-20 14:45 | XMS_ITS | Encounter Summary ---
Author Organization [facility] Address [address] [place] [address] Care Team Providers Care General Farm Hand Name Role Phone Charles Delgadillo MD Primary Care Provider [phone] Encounter Details Date Type Department Care Team (Latest Contact Info) Description 10/22/2001 Outpatient Historical [facility] Family Medicine [place] 104 [facility] 60 [place] [phone] Jameel Rodriguez DO NO ADDRESS ON FILE URIN TRACT INFECTION NOS (Primary Dx) Social History Tobacco Use Types Packs/Day Years Used Date Smoking Tobacco: Never Assessed Comments Unknown Sex and Gender Information Value Date Recorded Sex Assigned at Not on file Legal Sex Female 5:59 AM LOG RAFTER Gender Identity Not on file Sexual Orientation Not on file documented as of this encounter Plan of Treatment Not on file documented as of this encounter Visit Diagnoses Diagnosis Urinary tract infection, site not specified- Primary documented in this encounter Care Teams General Farm Hand Relationship Specialty Start Date End Date Charles Delgadillo MD [address] [place] [address] PCP - General Family Practice 09/05/10 documented as of this encounter
--- OUTSIDE RECORDS SUMMARY | 2025-09-20 14:45 | XMS_ITS | Encounter Summary ---
Author Organization [facility] Address [address] [place] [address] Care Team Providers Care Server Engineer Name Role Phone Charles Delgadillo MD Primary Care Provider [phone] Encounter Details Date Type Department Care Team (Latest Contact Info) Description 05/14/2003 Outpatient [facility] Medicine [place] 104 [facility] 60 [place] [address] Thomas Anne MD [address] [address] ACUTE SINUSITIS NOS (Primary Dx); MYALGIA AND MYOSITIS NOS Social History Tobacco Use Types Packs/Day Years Used Date Smoking Tobacco: Never Assessed Comments Unknown Sex and Gender Information Value Date Recorded Sex Assigned at Not on file Legal Sex Female 5:59 AM CASTING MOLDER Gender Identity Not on file Sexual Orientation Not on file documented as of this encounter Plan of Treatment Not on file documented as of this encounter Visit Diagnoses Diagnosis Acute sinusitis, unspecified- Primary Myalgia and myositis, unspecified Mylagia and myositis, unspecified documented in this encounter Care Teams Server Engineer Relationship Specialty Start Date End Date Charles Delgadillo MD [address], [place] [address] PCP - General Family Practice 09/05/10 documented as of this encounter
--- OUTSIDE RECORDS SUMMARY | 2025-09-20 14:45 | XMS_ITS | Encounter Summary ---
Author Organization [facility] Address [address] [place] [address] Care Team Providers Care Tuckpointer Cleaner Caulker Name Role Phone Charles Delgadillo MD Primary Care Provider [phone] Encounter Details Date Type Department Care Team (Latest Contact Info) Description 06/29/2003 Outpatient Historical [facility] Family Medicine [address] [phone] Jameel Rodriguez DO NO ADDRESS ON FILE Vaccine for influenza (Primary Dx) Social History Tobacco Use Types Packs/Day Years Used Date Smoking Tobacco: Never Assessed Comments Unknown Sex and Gender Information Value Date Recorded Sex Assigned at Not on file Legal Sex Female 5:59 AM AFTER SCHOOL COORDINATOR Gender Identity Not on file Sexual Orientation Not on file documented as of this encounter Plan of Treatment Not on file documented as of this encounter Visit Diagnoses Diagnosis Vaccine for influenza- Primary Need for prophylactic vaccination and inoculation against influenza documented in this encounter Care Teams Tuckpointer Cleaner Caulker Relationship Specialty Start Date End Date Charles Delgadillo MD [address] [place] [address] PCP - General Family Practice 09/05/10 documented as of this encounter
--- OUTSIDE RECORDS SUMMARY | 2025-09-20 14:45 | XMS_ITS | Encounter Summary ---
Author Organization [facility] Address [address] [place] [address] Care Team Providers Care Domestic Maid Name Role Phone Charles Delgadillo MD Primary Care Provider [phone] Encounter Details Date Type Department Care Team (Latest Contact Info) Description 12/06/2003 Outpatient Historical [facility] Orthopedics- [address] [place] [address] [place] [address] Gamaliel Gracia MD [address] [place] [phone] SHOULDER REGION DIS NEC (Primary Dx) Social History Tobacco Use Types Packs/Day Years Used Date Smoking Tobacco: Never Assessed Comments Unknown Sex and Gender Information Value Date Recorded Sex Assigned at Not on file Legal Sex Female 5:[address] REGISTRAR Gender Identity Not on file Sexual Orientation Not on file documented as of this encounter Plan of Treatment Not on file documented as of this encounter Visit Diagnoses Diagnosis Other affections of shoulder region, not elsewhere classified- Primary documented in this encounter Care Teams Domestic Maid Relationship Specialty Start Date End Date Charles Delgadillo MD [address] [place] [address] PCP - General Family Practice 09/05/10 documented as of this encounter
--- OUTSIDE RECORDS SUMMARY | 2025-09-20 14:45 | XMS_ITS | Encounter Summary ---
Author Organization [facility] Address [address] [place] [address] Care Team Providers Care Ornament Maker Hand Name Role Phone Charles Delgadillo MD Primary Care Provider Encounter Details Date Type Department Care Team (Latest Contact Info) Description 10/27/2001 Outpatient [facility] Family Medicine [place] 104 [facility] 60 [place] [phone] Thomas Anne MD [address] [phone] URIN TRACT INFECTION NOS (Primary Dx) Social History Tobacco Use Types Packs/Day Years Used Date Smoking Tobacco: Never Assessed Comments Unknown Sex and Gender Information Value Date Recorded Sex Assigned at Not on file Legal Sex Female 5:59 AM CLINICAL DOCUMENTATION CLERK Gender Identity Not on file Sexual Orientation Not on file documented as of this encounter Plan of Treatment Not on file documented as of this encounter Visit Diagnoses Diagnosis Urinary tract infection, site not specified- Primary documented in this encounter Care Teams Ornament Maker Hand Relationship Specialty Start Date End Date Charles Delgadillo MD [address] [place] [address] PCP - General Family Practice 09/05/10 documented as of this encounter
--- OUTSIDE RECORDS SUMMARY | 2025-09-20 14:45 | XMS_ITS | Encounter Summary ---
Author Organization [facility] Address [address] [place] [address] Care Team Providers Care Lead Atg Developer Name Role Phone Charles Delgadillo MD Primary Care Provider [phone] Encounter Details Date Type Department Care Team (Latest Contact Info) Description 05/19/2002 Outpatient [facility] Family Medicine [place] 104 [facility] 60 [place] [address] Thomas Anne MD [address] [address] Gynecologic examination (Primary Dx); SCREENING MAL NEOP-BREAST,UNSPEC Social History Tobacco Use Types Packs/Day Years Used Date Smoking Tobacco: Never Assessed Comments Unknown Sex and Gender Information Value Date Recorded Sex Assigned at Not on file Legal Sex Female 5:59 AM GROUND WATER CONTRACTOR Gender Identity Not on file Sexual Orientation Not on file documented as of this encounter Plan of Treatment Not on file documented as of this encounter Visit Diagnoses Diagnosis Gynecologic examination- Primary Gynecological examination Breast screening, unspecified documented in this encounter Care Teams Lead Atg Developer Relationship Specialty Start Date End Date Charles Delgadillo MD [address] [place] [address] PCP - General Family Practice 09/05/10 documented as of this encounter
--- OUTSIDE RECORDS SUMMARY | 2025-09-20 14:45 | XMS_ITS | Encounter Summary ---
Author Organization [facility] Address [address] [place] [address] Care Team Providers Care Distillation Operator Name Role Phone Charles Delgadillo MD Primary Care Provider [phone] Encounter Details Date Type Department Care Team (Latest Contact Info) Description 01/13/2003 Outpatient [facility] Family Medicine [place] 104 [facility] 60 [place] [phone] Thomas Anne MD [address] [phone] ENLARGEMENT LYMPH NODES (Primary Dx); HYPERLIPIDEMIA NEC/NOS Social History Tobacco Use Types Packs/Day Years Used Date Smoking Tobacco: Never Assessed Comments Unknown Sex and Gender Information Value Date Recorded Sex Assigned at Not on file Legal Sex Female 5:59 AM TECHNICAL TRAINING SPECIALIST Gender Identity Not on file Sexual Orientation Not on file documented as of this encounter Plan of Treatment Not on file documented as of this encounter Visit Diagnoses Diagnosis Enlargement of lymph nodes- Primary Other and unspecified hyperlipidemia documented in this encounter Care Teams Distillation Operator Relationship Specialty Start Date End Date Charles Delgadillo MD [address] [place] [address] [place] [address] PCP - General Family Practice 09/05/10 documented as of this encounter
--- OUTSIDE RECORDS SUMMARY | 2025-09-20 14:45 | XMS_ITS | Encounter Summary ---
Author Organization [facility] Address [address] [place] [address] Care Team Providers Care Patient'S Librarian Name Role Phone Charles Delgadillo MD Primary Care Provider [phone] Encounter Details Date Type Department Care Team (Late st Contact Info) Description 06/11/2001 Outpatient Historical [facility] Reg Lyon MD [address], [place] [phone] Loss of teeth due to trauma, extraction, or periodontal disease (Primary Dx) Social History Tobacco Use Types Packs/Day Years Used Date Smoking Tobacco: Never Assessed Comments Unknown Sex and Gender Information Value Date Recorded Sex Assigned at Not on file Legal Sex Female 5:59 AM KEY ACCOUNT REPRESENTATIVE Gender Identity Not on file Sexual Orientation Not on file documented as of this encounter Plan of Treatment Not on file documented as of this encounter Visit Diagnoses Diagnosis Loss of teeth due to trauma, extraction, or periodontal disease- Primary documented in this encounter Care Teams Patient'S Librarian Relationship Specialty Start Date End Date Charles Delgadillo MD [address] [address] PCP - General Family Practice 09/05/10 documented as of this encounter
--- OUTSIDE RECORDS SUMMARY | 2025-09-20 14:45 | XMS_ITS | Encounter Summary ---
Author Organization [facility] Address [address] [place] [address] Care Team Providers Care Flour Worker Name Role Phone Charles Delgadillo MD Primary Care Provider [phone] Encounter Details Date Type Department Care Team (Latest Contact Info) Description 07/25/2001 Outpatient [facility] Family Medicine [place] 104 [facility] 60 [place] [phone] hTomas Anne MD [address] [phone] VACCINE FOR INFLUENZA (Primary Dx) Social History Tobacco Use Types Packs/Day Years Used Date Smoking Tobacco: Never Assessed Comments Unknown Sex and Gender Information Value Date Recorded Sex Assigned at Not on file Legal Sex Female 5:59 AM GRAIN GRADER Gender Identity Not on file Sexual Orientation Not on file documented as of this encounter Plan of Treatment Not on file documented as of this encounter Visit Diagnoses Diagnosis Need vaccination-viral disease- Primary Need for prophylactic vaccination and inoculation against other viral diseases documented in this encounter Care Teams Flour Worker Relationship Specialty Start Date End Date Charles Delgadillo MD [address] [place] [phone] PCP - General Family Practice 09/05/10 documented as of this encounter
--- OUTSIDE RECORDS SUMMARY | 2025-09-20 14:45 | XMS_ITS | Encounter Summary ---
Author Organization [facility] Address [address] [place] [address] Care Team Providers Care Slide Attendant Name Role Phone Charles Delgadillo MD Primary Care Provider [phone] Encounter Details Date Type Department Care Team (Latest Contact Info) Description 02/03/2004 Outpatient Historical [facility] Orthopedics- [address] [place] [address] [place] [address] Gamaliel Gracia MD [address] [place] [phone] SHOULDER REGION DIS NEC (Primary Dx) Social History Tobacco Use Types Packs/Day Years Used Date Smoking Tobacco: Never Assessed Comments Unknown Sex and Gender Information Value Date Recorded Sex Assigned at Not on file Legal Sex Female 5:59 AM OUTSIDE SALES PROFESSIONAL Gender Identity Not on file Sexual Orientation Not on file documented as of this encounter Plan of Treatment Not on file documented as of this encounter Visit Diagnoses Diagnosis Other affections of shoulder region, not elsewhere classified- Primary documented in this encounter Care Teams Slide Attendant Relationship Specialty Start Date End Date Charles Delgadillo MD [address] [place] [address] PCP - General Family Practice 09/05/10 documented as of this encounter
--- OUTSIDE RECORDS SUMMARY | 2025-09-20 14:45 | XMS_ITS | Encounter Summary ---
Author Organization [facility] Address [address] [place] [address] Care Team Providers Care Fire Prevention Captain Name Role Phone Charles Delgadillo MD Primary Care Provider [phone] Encounter Details Date Type Department Care Team (Latest Contact Info) Description 11/03/2001 Outpatient [facility] Family Medicine [place] 104 [facility] 60 [place] [phone] Thomas Anne MD [address] [phone] URIN TRACT INFECTION NOS (Primary Dx) Social History Tobacco Use Types Packs/Day Years Used Date Smoking Tobacco: Never Assessed Comments Unknown Sex and Gender Information Value Date Recorded Sex Assigned at Not on file Legal Sex Female 5:59 AM STRINGING MACHINE OPERATOR Gender Identity Not on file Sexual Orientation Not on file documented as of this encounter Plan of Treatment Not on file documented as of this encounter Visit Diagnoses Diagnosis Urinary tract infection, site not specified- Primary documented in this encounter Care Teams Fire Prevention Captain Relationship Specialty Start Date End Date Charles Delgadillo MD [address] [place] [address] PCP - General Family Practice 09/05/10 documented as of this encounter
--- OUTSIDE RECORDS SUMMARY | 2025-09-20 14:45 | XMS_ITS | Encounter Summary ---
Author Organization [facility] Address [address] [facility] Attn: Epic Prelude ADT ANGELICA DAVIS [address] Care Team Providers Care Event Promotions Coordinator Name Role Phone Charles Delgadillo MD Primary Care Provider [phone] Encounter Details Date Type Department Care Team (Late st Contact Info) Description 08/16/2001 Outpatient Historical Thomas Anne MD [address] [phone] Social History Tobacco Use Types Packs/Day Years Used Date Smoking Tobacco: Never Assessed Comments Unknown Sex and Gender Information Value Date Recorded Sex Assigned at Not on file Legal Sex Female 5:59 AM DAIRY FARM WORKER Gender Identity Not on file Sexual Orientation Not on file documented as of this encounter Plan of Treatment Not on file documented as of this encounter Visit Diagnoses Not on filedocumented in this encounter Care Teams Event Promotions Coordinator Relationship Specialty Start Date End Date Charles Delgadillo MD [address] [place] [address] PCP - General Family Practice 09/05/10 documented as of this encounter
--- OUTSIDE RECORDS SUMMARY | 2025-09-20 14:45 | XMS_ITS | Encounter Summary ---
Author Organization [facility] Address [address] [place] [address] Care Team Providers Care Logistics Supervisor Name Role Phone Charles Delgadillo MD Primary Care Provider [phone] Encounter Details Date Type Department Care Team (Latest Contact Info) Description 03/29/2004 Outpatient [facility] [place] [address] [place] [address] Miller Bustos DPM NO ADDRESS ON FILE Plantar fibromatosis (Primary Dx); TARSAL TUNNEL SYNDROME; TENOSYNOVITIS FOOT/ANKLE; SPRAIN OF ANKLE NOS Social History Tobacco Use Types Packs/Day Years Used Date Smoking Tobacco: Never Assessed Comments Unknown Sex and Gender Information Value Date Recorded Sex Assigned at Not on file Legal Sex Female 5:59 AM MAINTENANCE ANALYST Gender Identity Not on file Sexual Orientation Not on file documented as of this encounter Plan of Treatment Not on file documented as of this encounter Visit Diagnoses Diagnosis 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
--- OUTSIDE RECORDS SUMMARY | 2025-09-20 14:45 | XMS_ITS | Encounter Summary ---
Author Organization [facility] Address [address] [place] [address] Care Team Providers Care Decorating Supervisor Name Role Phone Charles Delgadillo MD Primary Care Provider [phone] Encounter Details Date Type Department Care Team (Latest Contact Info) Description 10/15/2003 Outpatient [facility] Medicine [place] 104 [facility] 60 [place] [address] Thomas Anne MD [address] [phone] JOINT PAIN-SHLDER (Primary Dx); ANXIETY STATE NOS; ALLERGY, UNSPECIFIED Social History Tobacco Use Types Packs/Day Years Used Date Smoking Tobacco: Never Assessed Comments Unknown Sex and Gender Information Value Date Recorded Sex Assigned at Not on file Legal Sex Female 5:59 AM PETROLEUM PRODUCTION 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
--- OUTSIDE RECORDS SUMMARY | 2025-09-20 14:45 | XMS_ITS | Encounter Summary ---
Author Organization [facility] Address [address] [place] [address] Care Team Providers Care C Python Developer Name Role Phone Charles Delgadillo MD Primary Care Provider [phone] Encounter Details Date Type Department Care Team (Latest Contact Info) Description 07/13/2002 Outpatient [facility] Family Medicine [place] 104 [facility] 60 [place] [address] Thomas Anne MD [address] [phone] VACCINE FOR INFLUENZA (Primary Dx) Social History Tobacco Use Types Packs/Day Years Used Date Smoking Tobacco: Never Assessed Comments Unknown Sex and Gender Information Value Date Recorded Sex Assigned at Not on file Legal Sex Female 5:59 AM SALESPERSON ART OBJECTS Gender Identity Not on file Sexual Orientation Not on file documented as of this encounter Plan of Treatment Not on file documented as of this encounter Visit Diagnoses Diagnosis Need vaccination-viral disease- Primary Need for prophylactic vaccination and inoculation against other viral diseases documented in this encounter Care Teams C Python Developer Relationship Specialty Start Date End Date Charles Delgadillo MD [address] [place] [address] PCP - General Family Practice 09/05/10 documented as of this encounter
--- OUTSIDE RECORDS SUMMARY | 2025-09-20 14:45 | XMS_ITS | Encounter Summary ---
Author Organization [facility] Address [address] [place] [address] Care Team Providers Care Section Beamer Name Role Phone Charles Delgadillo MD Primary Care Provider [phone] Encounter Details Date Type Department Care Team (Latest Contact Info) Description 05/11/2004 Outpatient [facility] Podiatry-[facility] [address] [place] [phone] Miller Bustos DPM NO ADDRESS ON FILE TENOSYNOVITIS FOOT/ANKLE (Primary Dx) Social History Tobacco Use Types Packs/Day Years Used Date Smoking Tobacco: Never Assessed Comments Unknown Sex and Gender Information Value Date Recorded Sex Assigned at Not on file Legal Sex Female 5:59 AM SHERIFFS Gender Identity Not on file Sexual Orientation Not on file documented as of this encounter Plan of Treatment Not on file documented as of this encounter Visit Diagnoses Diagnosis Tenosynovitis of foot and ankle- Primary documented in this encounter Care Teams Section Beamer Relationship Specialty Start Date End Date Charles Delgadillo MD [address] [address] PCP - General Family Practice 09/05/10 documented as of this encounter
--- OUTSIDE RECORDS SUMMARY | 2025-09-20 14:45 | XMS_ITS | Encounter Summary ---
Author Organization [facility] Address [address] [place] [address] Care Team Providers Care Community Mental Health Social Worker Name Role Phone Charles Delgadillo MD Primary Care Provider [phone] Encounter Details Date Type Department Care Team (Latest Contact Info) Description 05/14/[address] [facility] Family Medicine [place] 104 [facility] [address] [place] [address] Thomas Anne MD [address] [phone] HYPOTHYROIDISM NOS (Primary Dx) Social History Tobacco Use Types Packs/Day Years Used Date Smoking Tobacco: Never Assessed Comments Unknown Sex and Gender Information Value Date Recorded Sex Assigned at Not on file Legal Sex Female 5:59 AM INOCULATOR Gender Identity Not on file Sexual Orientation Not on file documented as of this encounter Plan of Treatment Not on file documented as of this encounter Visit Diagnoses Diagnosis Unspecified hypothyroidism- Primary documented in this encounter Care Teams Community Mental Health Social Worker Relationship Specialty Start Date End Date Charles Delgadillo MD [address] [place] [address] PCP - General Family Practice 09/05/10 documented as of this encounter
--- OUTSIDE RECORDS SUMMARY | 2025-09-20 14:45 | XMS_ITS | Encounter Summary ---
Author Organization [facility] Address [address] [place] [address] Care Team Providers Care Park Services Specialist Name Role Phone Charles eDlgadillo MD Primary Care Provider [phone] Encounter Details Date Type Department Care Team (Latest Contact Info) Description 11/05/2003 Outpatient Historical [facility] Orthopedics- [address] [place] [address] [place] [address] Gamaliel Gracia MD [address] [place] [phone] JOINT PAIN-SHLDER (Primary Dx); LOC OSTEOARTH NOS-SHLDER Social History Tobacco Use Types Packs/Day Years Used Date Smoking Tobacco: Never Assessed Comments Unknown Sex and Gender Information Value Date Recorded Sex Assigned at Not on file Legal Sex Female 5:59 AM SENIOR ADMINISTRATIVE SUPPORT Gender Identity Not on file Sexual Orientation Not on file documented as of this encounter Plan of Treatment Not on file documented as of this encounter Visit Diagnoses Diagnosis Pain in joint, shoulder region- Primary Localized osteoarthrosis not specified whether primary or secondary, shoulder region documented in this encounter Care Teams Park Services Specialist Relationship Specialty Start Date End Date Charles Delgadillo MD [address] [place] [address] PCP - General Family Practice 09/05/10 documented as of this encounter
--- OUTSIDE RECORDS SUMMARY | 2025-09-20 14:45 | XMS_ITS | Encounter Summary ---
Author Organization [facility] Address [address] [facility] Attn: Epic Prelude ADT ANGELICA DAVIS [address] Care Team Providers Care Junior Php Developer Name Role Phone Charles Delgadillo MD Primary Care Provider [phone] Encounter Details Date Type Department Care Team (Late st Contact Info) Description 10/06/2001 Outpatient Historical Thomas Anne MD [address] [phone] Social History Tobacco Use Types Packs/Day Years Used Date Smoking Tobacco: Never Assessed Comments Unknown Sex and Gender Information Value Date Recorded Sex Assigned at Not on file Legal Sex Female 5:59 AM LICENSED ARCHITECT Gender Identity Not on file Sexual Orientation Not on file documented as of this encounter Plan of Treatment Not on file documented as of this encounter Visit Diagnoses Not on filedocumented in this encounter Care Teams Junior Php Developer Relationship Specialty Start Date End Date Charles Delgadillo MD [address] [place] [address] PCP - General Family Practice 09/05/10 documented as of this encounter
--- OUTSIDE RECORDS SUMMARY | 2025-09-20 14:45 | XMS_ITS | Encounter Summary ---
Author Organization [facility] Address [address] [place] [address] Care Team Providers Care Mine Superintendent Name Role Phone Charles Delgadillo MD Primary Care Provider [phone] Encounter Details Date Type Department Care Team (Latest Contact Info) Description 08/25/2004 Outpatient [facility] Family Medicine [place] 104 [facility] 60 [place] [address] Thomas Anne MD [address] [address] ACUTE SINUSITIS NOS (Primary Dx); JOINT PAIN-UNSPEC Social History Tobacco Use Types Packs/Day Years Used Date Smoking Tobacco: Never Assessed Comments Unknown Sex and Gender Information Value Date Recorded Sex Assigned at Not on file Legal Sex Female 5:59 AM EASEMENT WORKER Gender Identity Not on file Sexual Orientation Not on file documented as of this encounter Plan of Treatment Not on file documented as of this encounter Visit Diagnoses Diagnosis Acute sinusitis, unspecified- Primary Pain in joint, site unspecified documented in this encounter Care Teams Mine Superintendent Relationship Specialty Start Date End Date Charles Delgadillo MD [address] [place] [address] PCP - General Family Practice 09/05/10 documented as of this encounter
--- OUTSIDE RECORDS SUMMARY | 2025-09-20 14:45 | XMS_ITS | Encounter Summary ---
Author Organization [facility] Address [address] [place] [address] Care Team Providers Care Cattle Sprayer Name Role Phone Charles Delgadillo MD Primary Care Provider [phone] Encounter Details Date Type Department Care Team (Latest Contact Info) Description 03/20/2004 Outpatient [facility] Family Medicine [place] 104 [facility] 60 [place] [address] Thomas Anne MD [address] [phone] CALCANEAL SPUR (Primary Dx); OSTEOPOROSIS NOS Social History Tobacco Use Types Packs/Day Years Used Date Smoking Tobacco: Never Assessed Comments Unknown Sex and Gender Information Value Date Recorded Sex Assigned at Not on file Legal Sex Female 5:59 AM SPECIAL POPULATION PARAPROFESSIONAL Gender Identity Not on file Sexual Orientation Not on file documented as of this encounter Plan of Treatment Not on file documented as of this encounter Visit Diagnoses Diagnosis Calcaneal spur- Primary Osteoporosis, unspecified documented in this encounter Care Teams Cattle Sprayer Relationship Specialty Start Date End Date Charles Delgadillo MD [address] [place] [address] PCP - General Family Practice 09/05/10 documented as of this encounter
--- OUTSIDE RECORDS SUMMARY | 2025-09-20 14:45 | XMS_ITS | Encounter Summary ---
Author Organization [facility] Address [address] [place] [address] Care Team Providers Care Certified Adaptive Physical Educator Name Role Phone Charles Delgadillo MD Primary Care Provider [phone] Encounter Details Date Type Department Care Team (Late st Contact Info) Description 07/17/2002 Outpatient [facility] Family Medicine [place] 104 [facility] 60 [place] [address] Thomas Anne MD [address] [phone] CVA (Primary Dx) Social History Tobacco Use Types Packs/Day Years Used Date Smoking Tobacco: Never Assessed Comments Unknown Sex and Gender Information Value Date Recorded Sex Assigned at Not on file Legal Sex Female 5:59 AM VALVE INSERTER Gender Identity Not on file Sexual Orientation Not on file documented as of this encounter Plan of Treatment Not on file documented as of this encounter Visit Diagnoses Diagnosis CVA- Primary Unspecified cerebral artery occlusion with cerebral infarction documented in this encounter Care Teams Certified Adaptive Physical Educator Relationship Specialty Start Date End Date Charles Delgadillo MD [address] [place] [address] PCP - General Family Practice 09/05/10 documented as of this encounter
--- OUTSIDE RECORDS SUMMARY | 2025-09-20 14:45 | XMS_ITS | Encounter Summary ---
Author Organization [facility] Address [address] [place] [address] Care Team Providers Care Senior Statistical Programmer Name Role Phone Charles Delgadillo MD Primary Care Provider [phone] Encounter Details Date Type Department Care Team (Latest Contact Info) Description 08/17/2002 Outpatient [facility] [place] 104 [facility] 60 [place] [address] Thmoas Anne MD [address] [phone] MYALGIA AND MYOSITIS NOS (Primary Dx); ESOPHAGEAL REFLUX Social History Tobacco Use Types Packs/Day Years Used Date Smoking Tobacco: Never Assessed Comments Unknown Sex and Gender Information Value Date Recorded Sex Assigned at Not on file Legal Sex Female 5:59 AM VENEER SPLICER Gender Identity Not on file Sexual Orientation Not on file documented as of this encounter Plan of Treatment Not on file documented as of this encounter Visit Diagnoses Diagnosis Myalgia and myositis, unspecified- Primary Mylagia and myositis, unspecified Esophageal reflux documented in this encounter Care Teams Senior Statistical Programmer Relationship Specialty Start Date End Date Charles Delgadillo MD [address] [place] [phone] PCP - General Family Practice 09/05/10 documented as of this encounter
--- OUTSIDE RECORDS SUMMARY | 2025-09-20 14:45 | XMS_ITS | Encounter Summary ---
Author Organization [facility] Address [address] [facility] Attn: Epic Prelude ADT ANGELICA DAVIS [address] Care Team Providers Care Industrial Renderer Name Role Phone Charles Delgadillo MD Primary Care Provider [phone] Encounter Details Date Type Department Care Team (Late st Contact Info) Description 05/19/2002 Outpatient Historical Thomas Anne MD [address] [phone] Social History Tobacco Use Types Packs/Day Years Used Date Smoking Tobacco: Never Assessed Comments Unknown Sex and Gender Information Value Date Recorded Sex Assigned at Not on file Legal Sex Female 5:59 AM TRACK SURFACING MACHINE OPERATOR Gender Identity Not on file Sexual Orientation Not on file documented as of this encounter Plan of Treatment Not on file documented as of this encounter Visit Diagnoses Not on filedocumented in this encounter Care Teams Industrial Renderer Relationship Specialty Start Date End Date Charles Delgadillo MD [address] [place] [address] PCP - General Family Practice 09/05/10 documented as of this encounter
--- OUTSIDE RECORDS SUMMARY | 2025-09-20 14:45 | XMS_ITS | Encounter Summary ---
Author Organization [facility] Address [address] [place] [address] Care Team Providers Care Psychiatric Nurse Name Role Phone Charles Delgadillo MD Primary Care Provider [phone] Encounter Details Date Type Department Care Team (Latest Contact Info) Description 08/15/2001 Outpatient [facility] [place] 104 [facility] 60 [place] [address] Thomas Anne MD [address] [address] ARTHROPATHY NOS-UNSPEC (Primary Dx); HYPERLIPIDEMIA NEC/NOS Social History Tobacco Use Types Packs/Day Years Used Date Smoking Tobacco: Never Assessed Comments Unknown Sex and Gender Information Value Date Recorded Sex Assigned at Not on file Legal Sex Female 5:59 AM HYPERBARIC TECH Gender Identity Not on file Sexual Orientation Not on file documented as of this encounter Plan of Treatment Not on file documented as of this encounter Visit Diagnoses Diagnosis Arthropathy, unspecified, site unspecified- Primary Other and unspecified hyperlipidemia documented in this encounter Care Teams Psychiatric Nurse Relationship Specialty Start Date End Date Charles Delgadillo MD [address], [place] [phone] PCP - General Family Practice 09/05/10 documented as of this encounter
--- OUTSIDE RECORDS SUMMARY | 2025-09-20 14:45 | XMS_ITS | Encounter Summary ---
Author Organization [facility] Address [address] [place] [address] Care Team Providers Care Property Clerk Name Role Phone Charles Delgadillo MD Primary Care Provider [phone] Encounter Details Date Type Department Care Team (Latest Contact Info) Description 04/19/2004 Outpatient [facility] Pod[facility] [address] [place] [phone] Miller Bustos DPM NO ADDRESS ON FILE TENOSYNOVITIS FOOT/ANKLE (Primary Dx) Social History Tobacco Use Types Packs/Day Years Used Date Smoking Tobacco: Never Assessed Comments Unknown Sex and Gender Information Value Date Recorded Sex Assigned at Not on file Legal Sex Female 5:59 AM VISITOR SERVICE ASSISTANT Gender Identity Not on file Sexual Orientation Not on file documented as of this encounter Plan of Treatment Not on file documented as of this encounter Visit Diagnoses Diagnosis Tenosynovitis of foot and ankle- Primary documented in this encounter Care Teams Property Clerk Relationship Specialty Start Date End Date Charles Delgadillo MD [address], [place] [address] PCP - General Family Practice 09/05/10 documented as of this encounter
--- OUTSIDE RECORDS SUMMARY | 2025-09-20 14:45 | XMS_ITS | Encounter Summary ---
Author Organization [facility] Address [address] [place] [address] Care Team Providers Care Meter/Relay Technician Name Role Phone Charles Degladillo MD Primary Care Provider [phone] Encounter Details Date Type Department Care Team (Latest Contact Info) Description 03/16/2002 Outpatient Historical [facility] Family Medicine [address] [phone] Samuel Chen MD ABDOMINAL PAIN UNSPEC SITE (Primary Dx) Social History Tobacco Use Types Packs/Day Years Used Date Smoking Tobacco: Never Assessed Comments Unknown Sex and Gender Information Value Date Recorded Sex Assigned at Not on file Legal Sex Female 5:59 AM STOCK CHECKERER Gender Identity Not on file Sexual Orientation Not on file documented as of this encounter Plan of Treatment Not on file documented as of this encounter Visit Diagnoses Diagnosis Abdominal pain, unspecified site- Primary documented in this encounter Care Teams Meter/Relay Technician Relationship Specialty Start Date End Date Charles Delgadillo MD [address] [place] [address] PCP - General Family Practice 09/05/10 documented as of this encounter
--- OUTSIDE RECORDS SUMMARY | 2025-09-20 14:45 | XMS_ITS | Encounter Summary ---
Author Organization [facility] Address [address] [place] [address] Care Team Providers Care Manager Fixed Income Name Role Phone Charles Delgadillo MD Primary Care Provider [phone] Encounter Details Date Type Department Care Team (Latest Contact Info) Description 01/24/2004 Outpatient [facility] Family Medicine [place] 104 [facility] 60 [place] [address] Thomas Anne MD [address] [phone] CRAMP IN LIMB (Primary Dx); BENIGN PARXYSMAL VERTIGO Social History Tobacco Use Types Packs/Day Years Used Date Smoking Tobacco: Never Assessed Comments Unknown Sex and Gender Information Value Date Recorded Sex Assigned at Not on file Legal Sex Female 5:59 AM INFO ANALYST Gender Identity Not on file Sexual Orientation Not on file documented as of this encounter Plan of Treatment Not on file documented as of this encounter Visit Diagnoses Diagnosis Cramp of limb- Primary Benign paroxysmal positional vertigo documented in this encounter Care Teams Manager Fixed Income Relationship Specialty Start Date End Date Charles Delgadillo MD [address] [place] [address] PCP - General Family Practice 12/14/10 documented as of this encounter
--- OUTSIDE RECORDS SUMMARY | 2025-09-20 14:45 | XMS_ITS | Encounter Summary ---
Author Organization [facility] Address [address] [place] [address] Care Team Providers Care Assistant Chief Nursing Officer Name Role Phone Charles Delgadillo MD Primary Care Provider [phone] Encounter Details Date Type Department Care Team (Latest Contact Info) Description 01/22/2003 Outpatient [facility] Family Medicine [place] 104 [facility] 60 [place] [address] Thomas Anne MD [address] [phone] JOINT PAIN-SHLDER (Primary Dx); CERVICALGIA Social History Tobacco Use Types Packs/Day Years Used Date Smoking Tobacco: Never Assessed Comments Unknown Sex and Gender Information Value Date Recorded Sex Assigned at Not on file Legal Sex Female 5:59 AM PLATE WORKER HELPER Gender Identity Not on file Sexual Orientation Not on file documented as of this encounter Plan of Treatment Not on file documented as of this encounter Visit Diagnoses Diagnosis Pain in joint, shoulder region- Primary Cervicalgia documented in this encounter Care Teams Assistant Chief Nursing Officer Relationship Specialty Start Date End Date Charles Delgadillo MD [address] [place] [address] PCP - General Family Practice 09/05/10 documented as of this encounter
--- OUTSIDE RECORDS SUMMARY | 2025-09-20 14:45 | XMS_ITS | Encounter Summary ---
Author Organization [facility] Address [address] [place] [address] Care Team Providers Care Bellperson Name Role Phone Charles Delgadillo MD Primary Care Provider [phone] Encounter Details Date Type Department Care Team (Latest Contact Info) Description 04/27/2004 Outpatient Historical [facility] Orthopedics- [address] [place] [address] Gamaliel Gracia MD [address] [place] [phone] LOC PRIM OSTEOART-SHLDER (Primary Dx) Social History Tobacco Use Types Packs/Day Years Used Date Smoking Tobacco: Never Assessed Comments Unknown Sex and Gender Information Value Date Recorded Sex Assigned at Not on file Legal Sex Female 5:59 AM CENTRIFUGAL SCREEN TENDER Gender Identity Not on file Sexual Orientation Not on file documented as of this encounter Plan of Treatment Not on file documented as of this encounter Visit Diagnoses Diagnosis Primary localized osteoarthrosis, shoulder region- Primary documented in this encounter Care Teams Bellperson Relationship Specialty Start Date End Date Charles Delgadillo MD [address] [place] [address] PCP - General Family Practice 09/05/10 documented as of this encounter
--- OUTSIDE RECORDS SUMMARY | 2025-09-20 14:45 | XMS_ITS | Encounter Summary ---
Author Organization [facility] Address [address] [place] [address] Care Team Providers Care Book Solicitor Name Role Phone Charles Delgadillo MD Primary Care Provider [phone] Encounter Details Date Type Department Care Team (Latest Contact Info) Description 07/20/2004 Outpatient Historical [facility] Orthopedics- [address] [place] [address] [place] [address] Gamaliel Gracia MD [address] [place] [phone] SHOULDER REGION DIS NEC (Primary Dx); SUPERIOR GLENOID LABRUM LES; CHONDROMALACIA Social History Tobacco Use Types Packs/Day Years Used Date Smoking Tobacco: Never Assessed Comments Unknown Sex and Gender Information Value Date Recorded Sex Assigned at Not on file Legal Sex Female 5:59 AM HACKLER DOLL WIGS Gender Identity Not on file Sexual Orientation Not on file documented as of this encounter Plan of Treatment Not on file documented as of this encounter Visit Diagnoses Diagnosis Other affections of shoulder region, not elsewhere classified- Primary Superior glenoid labrum lesion Chondromalacia documented in this encounter Care Teams Book Solicitor Relationship Specialty Start Date End Date Charles Delgadillo MD [address] [place] [phone] PCP - General Family Practice 09/05/10 documented as of this encounter
--- OUTSIDE RECORDS SUMMARY | 2025-09-20 14:45 | XMS_ITS | Encounter Summary ---
Author Organization [facility] Address [address] [place] [address] Care Team Providers Care Shake Backboard Notcher Name Role Phone Charles Delgadillo MD Primary Care Provider [phone] Encounter Details Date Type Department Care Team (Latest Contact Info) Description 03/13/2004 Outpatient Historical [facility] Family Medicine [address] [phone] Lamar Pineda NP NO ADDRESS ON FILE SPRAIN OF ANKLE NOS (Primary Dx); EXOSTOSIS, SITE NOS Social History Tobacco Use Types Packs/Day Years Used Date Smoking Tobacco: Never Assessed Comments Unknown Sex and Gender Information Value Date Recorded Sex Assigned at Not on file Legal Sex Female 5:59 AM BEVERAGE STEWARD Gender Identity Not on file Sexual Orientation Not on file documented as of this encounter Plan of Treatment Not on file documented as of this encounter Visit Diagnoses Diagnosis Sprain of ankle, unspecified site- Primary Exostosis of unspecified site documented in this encounter Care Teams Shake Backboard Notcher Relationship Specialty Start Date End Date Charles Delgadillo MD [address] [place] [address] PCP - General Family Practice 09/05/10 documented as of this encounter
--- OUTSIDE RECORDS SUMMARY | 2025-09-20 14:45 | XMS_ITS | Encounter Summary ---
Author Organization [facility] Address [address] [place] [address] Care Team Providers Care Lock And Dam Equipment Repairer Name Role Phone Charles Delgadillo MD Primary Care Provider [phone] Encounter Details Date Type Department Care Team (Latest Contact Info) Description 10/21/2003 Outpatient Historical [facility] Orthopedics- [address] [place] [address] Gamaliel Gracia MD [address] [place] [phone] JOINT PAIN-SHLDER (Primary Dx) Social History Tobacco Use Types Packs/Day Years Used Date Smoking Tobacco: Never Assessed Comments Unknown Sex and Gender Information Value Date Recorded Sex Assigned at Not on file Legal Sex Female 5:59 AM NURSE MIDWIFE/CLINICAL INSTRUCTOR Gender Identity Not on file Sexual Orientation Not on file documented as of this encounter Plan of Treatment Not on file documented as of this encounter Visit Diagnoses Diagnosis Pain in joint, shoulder region- Primary documented in this encounter Care Teams Lock And Dam Equipment Repairer Relationship Specialty Start Date End Date Charles Delgadillo MD [address] [place] [address] PCP - General Family Practice 09/05/10 documented as of this encounter
--- OUTSIDE RECORDS SUMMARY | 2025-09-20 14:45 | XMS_ITS | Encounter Summary ---
Author Organization [facility] Address [address] [place] [address] Care Team Providers Care Body Recall Instructor Name Role Phone Charles Delgadillo MD Primary Care Provider [phone] Encounter Details Date Type Department Care Team (Latest Contact Info) Description 04/07/2004 Outpatient Historical [facility] Imaging Services [address] [place] [phone] Gamaliel Gracia MD [address] [place] [address] POSTOP HETEROTOPIC CALC (Primary Dx) Social History Tobacco Use Types Packs/Day Years Used Date Smoking Tobacco: Never Assessed Comments Unknown Sex and Gender Information Value Date Recorded Sex Assigned at Not on file Legal Sex Female 5:59 AM SOCIALLY RESPONSIBLE INVESTMENT ADVISER Gender Identity Not on file Sexual Orientation Not on file documented as of this encounter Plan of Treatment Not on file documented as of this encounter Visit Diagnoses Diagnosis Postoperative heterotopic calcification- Primary documented in this encounter Care Teams Body Recall Instructor Relationship Specialty Start Date End Date Charles Delgadillo MD [address] [place] [address] PCP - General Family Practice 09/05/10 documented as of this encounter
--- OUTSIDE RECORDS SUMMARY | 2025-09-20 14:45 | XMS_ITS | Encounter Summary ---
Author Organization [facility] Address [address] [place] [address] Care Team Providers Care Open Hearth Helper Name Role Phone Charles Delgadillo MD Primary Care Provider [phone] Encounter Details Date Type Department Care Team (Late st Contact Info) Description 10/16/2001 Outpatient Historical [facility]- [facility] [address] [place] [address] Mark Butler DO [address] [facility] [address] [place] [address] MYOPATHY NOS (Primary Dx); RHEUMATISM NOS Social History Tobacco Use Types Packs/Day Years Used Date Smoking Tobacco: Never Assessed Comments Unknown Sex and Gender Information Value Date Recorded Sex Assigned at Not on file Legal Sex Female 5:59 AM SAP GATHERER Gender Identity Not on file Sexual Orientation Not on file documented as of this encounter Plan of Treatment Not on file documented as of this encounter Visit Diagnoses Diagnosis Myopathy, unspecified- Primary Rheumatism, unspecified and fibrositis documented in this encounter Care Teams Open Hearth Helper Relationship Specialty Start Date End Date Charles Delgadillo MD [address] [place] [address] PCP - General Family Practice 09/05/10 documented as of this encounter
--- OUTSIDE RECORDS SUMMARY | 2025-09-20 14:45 | XMS_ITS | Encounter Summary ---
Author Organization [facility] Address [address] [place] [address] Care Team Providers Care Associate Accountant Name Role Phone Charles Delgadillo MD Primary Care Provider [phone] Encounter Details Date Type Department Care Team (Latest Contact Info) Description 10/27/2004 Outpatient [facility] Medicine [place] 104 [facility] 60 [place] [address] Thomas Anne MD [address] [phone] PITYRIASIS VERSICOLOR (Primary Dx); HYPERLIPIDEMIA NEC/NOS; HYPOTHYROIDISM NOS Social History Tobacco Use Types Packs/Day Years Used Date Smoking Tobacco: Never Assessed Comments Unknown Sex and Gender Information Value Date Recorded Sex Assigned at Not on file Legal Sex Female 5:59 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
--- OUTSIDE RECORDS SUMMARY | 2025-09-20 14:45 | XMS_ITS | Encounter Summary ---
Author Organization [facility] Address [address] [place] [address] Care Team Providers Care Aerial Planting And Cultivation Manager Name Role Phone Charles Delgadillo MD Primary Care Provider Encounter Details Date Type Department Care Team (Latest Contact Info) Description 05/22/2004 Outpatient Historical [facility] [address] [place] [address] [place] [address] Gamaliel Gracia MD [address] [place] [address] PREOP CARDIOVASC EXAM (Primary Dx) Social History Tobacco Use Types Packs/Day Years Used Date Smoking Tobacco: Never Assessed Comments Unknown Sex and Gender Information Value Date Recorded Sex Assigned at Not on file Legal Sex Female 5:59 AM SURVEILLANCE INSPECTOR Gender Identity Not on file Sexual Orientation Not on file documented as of this encounter Plan of Treatment Not on file documented as of this encounter Visit Diagnoses Diagnosis Pre-operative cardiovascular examination- Primary documented in this encounter Care Teams Aerial Planting And Cultivation Manager Relationship Specialty Start Date End Date Charles Delgadillo MD [address] [place] [address] PCP - General Family Practice 09/05/10 documented as of this encounter
--- OUTSIDE RECORDS SUMMARY | 2025-09-20 14:45 | XMS_ITS | Encounter Summary ---
Author Organization [facility] Address [address] [place] [address] Care Team Providers Care Chiropractic Teacher Name Role Phone Charles Delgadillo MD Primary Care Provider Encounter Details Date Type Department Care Team (Latest Contact Info) Description 04/06/2004 Outpatient Historical [facility] [place] [facility] [address] [place] 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
--- OUTSIDE RECORDS SUMMARY | 2025-09-20 14:45 | XMS_ITS | Encounter Summary ---
Author Organization [facility] Address [address] [place] [address] Care Team Providers Care Personal Banking Officer Name Role Phone Charles Delgadillo MD Primary Care Provider [phone] Encounter Details Date Type Department Care Team (Latest Contact Info) Description 02/23/2002 Outpatient [facility] [address] Family Medicine [place] 104 [facility] 60 [place] [address] Thomas Anne MD [address] [address] UNSPEC CONSTIPATION (Primary Dx); General symptoms NEC Social History Tobacco Use Types Packs/Day Years Used Date Smoking Tobacco: Never Assessed Comments Unknown Sex and Gender Information Value Date Recorded Sex Assigned at Not on file Legal Sex Female 5:59 AM BICYCLE SERVICE TECHNICIAN Gender Identity Not on file Sexual Orientation Not on file documented as of this encounter Plan of Treatment Not on file documented as of this encounter Visit Diagnoses Diagnosis Unspecified constipation- Primary General symptoms NEC Other general symptoms documented in this encounter Care Teams Personal Banking Officer Relationship Specialty Start Date End Date Charles Delgadillo MD [address] [place] [address] PCP - General Family Practice 09/05/10 documented as of this encounter
--- OUTSIDE RECORDS SUMMARY | 2025-09-20 14:45 | XMS_ITS | Encounter Summary ---
Author Organization [facility] Address [address] [place] [address] Care Team Providers Care Automobile Travel Club Counselor Name Role Phone Charles Delgadillo MD Primary Care Provider [phone] Encounter Details Date Type Department Care Team (Late st Contact Info) Description 10/27/2003 Outpatient Historical [facility] [place] [address] 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
--- OUTSIDE RECORDS SUMMARY | 2025-09-20 14:46 | XMS_ITS | Encounter Summary ---
Author Organization [facility] Address [address] [place] [address] Care Team Providers Care Collar Closer Lockstitch Name Role Phone Charles Delgadillo MD Primary Care Provider Encounter Details Date Type Department Care Team (Latest Contact Info) Description 12/31/2005 Outpatient [facility] Podiat[facility] [address] [place] [address] Miller Bustos DPM NO ADDRESS ON FILE Metatarsus Varus (Primary Dx); Other Bursitis Disorders Social History Tobacco Use Types Packs/Day Years Used Date Smoking Tobacco: Never Assessed Comments Unknown Sex and Gender Information Value Date Recorded Sex Assigned at Not on file Legal Sex Female 5:59 AM MILL FEEDER Gender Identity Not on file Sexual Orientation Not on file documented as of this encounter Plan of Treatment Not on file documented as of this encounter Visit Diagnoses Diagnosis Metatarsus varus- Primary Congenital metatarsus varus Other bursitis disorders documented in this encounter Care Teams Collar Closer Lockstitch Relationship Specialty Start Date End Date Charles Delgadillo MD [address] [place] [address] PCP - General Family Practice 09/05/10 documented as of this encounter
--- OUTSIDE RECORDS SUMMARY | 2025-09-20 14:46 | XMS_ITS | Encounter Summary ---
Author Organization [facility] Address [address] [place] [address] Care Team Providers Care Complaint Clerk Name Role Phone Charles Delgadillo MD Primary Care Provider [phone] Encounter Details Date Type Department Care Team (Latest Contact Info) Description 10/30/2006 Outpatient [facility] [address] [place] [address] [place] [address] [phone] Melvin Caro Disorders of Sacrum (Primary Dx) Social History Tobacco Use Types Packs/Day Years Used Date Smoking Tobacco: Never Assessed Comments Unknown Sex and Gender Information Value Date Recorded Sex Assigned at Not on file Legal Sex Female 5:59 AM SALESPERSON BOOKS Gender Identity Not on file Sexual Orientation Not on file documented as of this encounter Plan of Treatment Not on file documented as of this encounter Visit Diagnoses Diagnosis Disorders of sacrum- Primary documented in this encounter Care Teams Complaint Clerk Relationship Specialty Start Date End Date Charles Delgadillo MD [address] [place] [address] PCP - General Family Practice 09/05/10 documented as of this encounter
--- OUTSIDE RECORDS SUMMARY | 2025-09-20 14:46 | XMS_ITS | Encounter Summary ---
Author Organization [facility] Address [address] [place] [address] Care Team Providers Care Clutch Operator Name Role Phone Charles Delgadillo MD Primary Care Provider [phone] Encounter Details Date Type Department Care Team (Latest Contact Info) Description 11/09/2005 Outpatient [facility] Medicine [place] 104 [facility] 60 [place] [address] Thomas Anne MD [address] [address] MONONEURITIS NOS (Primary Dx); HYPOTHYROIDISM NOS; SWELLING IN HEAD & NECK Social History Tobacco Use Types Packs/Day Years Used Date Smoking Tobacco: Never Assessed Comments Unknown Sex and Gender Information Value Date Recorded Sex Assigned at Not on file Legal Sex Female 5:59 AM BANQUET CAPTAIN Gender Identity Not on file Sexual Orientation Not on file documented as of this encounter Plan of Treatment Not on file documented as of this encounter Visit Diagnoses Diagnosis Mononeuritis of unspecified site- Primary Unspecified hypothyroidism Swelling, mass, or lump in head and neck documented in this encounter Care Teams Clutch Operator Relationship Specialty Start Date End Date Charles Delgadillo MD [address] [place] [address] PCP - General Family Practice 09/05/10 documented as of this encounter
--- OUTSIDE RECORDS SUMMARY | 2025-09-20 14:46 | XMS_ITS | Encounter Summary ---
Author Organization [facility] Address [address] [place] [address] Care Team Providers Care Cylinder Inspector And Tester Name Role Phone Charles Delgadillo MD Primary Care Provider Encounter Details Date Type Department Care Team (Latest Contact Info) Description 07/15/2006 Outpatient Historical [address] [phone] Roz Capellan MD [address] [place] [phone] Unspecified Essential Hypertension (Primary Dx); Insomnia, Unspecified; Unspecified Endocrine Disorder; Unspecified Disorder of Kidney and Ureter; Vaccine for influenza Social History Tobacco Use Types Packs/Day Years Used Date Smoking Tobacco: Never Assessed Comments Unknown Sex and Gender Information Value Date Recorded Sex Assigned at Not on file Legal Sex Female 5:59 AM TECHNICAL INSPECTOR Gender Identity Not on file Sexual Orientation Not on file documented as of this encounter Plan of Treatment Not on file documented as of this encounter Visit Diagnoses Diagnosis Unspecified essential hypertension- Primary Insomnia, unspecified Unspecified endocrine disorder Unspecified disorder of kidney and ureter Vaccine for influenza Need for prophylactic vaccination and inoculation against influenza documented in this encounter Care Teams Cylinder Inspector And Tester Relationship Specialty Start Date End Date Charles Delgadillo MD [address] [address] PCP - General Family Practice 09/05/10 documented as of this encounter
--- OUTSIDE RECORDS SUMMARY | 2025-09-20 14:46 | XMS_ITS | Encounter Summary ---
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
--- OUTSIDE RECORDS SUMMARY | 2025-09-20 14:46 | XMS_ITS | Encounter Summary ---
Author Organization [employer] [facility] Address [address] [place] [address] Care Team Providers Care Shell Worker Name Role Phone Charles Delgadillo MD Primary Care Provider [phone] Encounter Details Date Type Department Care Team (Late st Contact Info) Description 11/27/2005 Outpatient Historical [facility] Neurology [address] [facility], [address] [place] [address] Tristen Aragon MD [address] [place] [address] Cervicalgia (Primary Dx) Social History Tobacco Use Types Packs/Day Years Used Date Smoking Tobacco: Never Assessed Comments Unknown Sex and Gender Information Value Date Recorded Sex Assigned at Not on file Legal Sex Female 5:59 AM AERODYNAMIC CONSULTANT Gender Identity Not on file Sexual Orientation Not on file documented as of this encounter Plan of Treatment Not on file documented as of this encounter Visit Diagnoses Diagnosis Cervicalgia- Primary documented in this encounter Care Teams Shell Worker Relationship Specialty Start Date End Date Charles Delgadillo MD [address] [address] PCP - General Family Practice 09/05/10 documented as of this encounter
--- OUTSIDE RECORDS SUMMARY | 2025-09-20 14:46 | XMS_ITS | Encounter Summary ---
Author Organization [employer] [facility] Address [address] [place] [address] Care Team Providers Care Real Estate Marketing Coordinator Name Role Phone Charles Delgadillo MD Primary Care Provider [phone] Encounter Details Date Type Department Care Team (Late st Contact Info) Description 12/12/2005 Outpatient Historical [facility] Neurology [address] [facility], [address] [place] [address] Tristen Aragon MD [address] [place] [phone] Cervicalgia (Primary Dx) Social History Tobacco Use Types Packs/Day Years Used Date Smoking Tobacco: Never Assessed Comments Unknown Sex and Gender Information Value Date Recorded Sex Assigned at Not on file Legal Sex Female 5:59 AM SAMPLE SAWYER Gender Identity Not on file Sexual Orientation Not on file documented as of this encounter Plan of Treatment Not on file documented as of this encounter Procedures Procedure Name Priority Date/Time Associated Diagnosis Comments MRI CERVICAL WO CONTRAST Routine 12/12/2005 12:01 AM SAMPLE SAWYER documented in this encounter Results * MRI CERVICAL WO CONTRAST (12/12/2005 12:01 AM SAMPLE SAWYER) Anatomical Region Laterality Modality Spine Other 12/12/2005 12:0 1 AM SAMPLE SAWYER Narrative 12/12/2005 12:01 AM SAMPLE SAWYER MRI CERVICAL SPINE WITHOUT CONTRAST AND BRAIN [...] contrast could be obtained to better evaluate. [facility] 1309 Dictated By: Seth Pepe M.D. Electronically Signed By: Seth Pepe M.D. Date Signed: 12/14/05 [facility] Procedure Note 08/12/2009 MRI CERVICAL SPINE [...] contrast could be obtained to better evaluate. [facility] 1309 Dictated By: Seth Pepe M.D. Electronically Signed By: Seth Pepe M.D. Date Signed: 12/14/05 [facility] us Tristen Aragon MD MR ORDERABLES Final Resul t documented in this encounter Visit Diagnoses Diagnosis Cervicalgia- Primary documented in this encounter Care Teams Real Estate Marketing Coordinator Relationship Specialty Start Date End Date Charles Delgadillo MD [address] [place] [address] PCP - General Family Practice 09/05/10 documented as of this encounter
--- OUTSIDE RECORDS SUMMARY | 2025-09-20 14:46 | XMS_ITS | Encounter Summary ---
Author Organization [employer] [facility] Address [address] [place] [address] Care Team Providers Care Pediatric Intensive Physician Name Role Phone Charles Delgadillo MD Primary Care Provider [phone] Reason for Referral * Radiology Services (Routine) - Closed Specialty Diagnoses / Procedures Referred By Tisha t Referred To Contact Diagnoses Visit for screening mammogram Procedures MAMMO 3D SCREEN BILATERAL MOBILE Charles Delgadillo MD [address] [place] [address] Phone: tel: fax: Referral ID Status Reason Start Date Expiration Date Visits Re quested Visits Authorized [id number] Closed 10/19/2019 11/18/2020 1 1 TRO OPTICS ENGINEER Encounter Details Date Type Department Care Team (Latest Contact Info) Description 10/19/2019 Ancillary Orders [employer] [place] [address] [address] Charles Delgadillo MD [address] [place] [address] Visit for screening mammogram Social History Tobacco Use Types Packs/Day Years Used Date Smoking Tobacco: Never Smokeless Tobacco: Never Alcohol Use Standard Drinks/Week Comments No 0 (1 standard drink = 0.6 oz pur e alcohol) Comments No Sex and Gender Information Value Date Recorded Sex Assigned at Not on file Legal Sex Female 5:59 AM ELECTRO OPTICS ENGINEER Gender Identity Not on file Sexual Orientation Not on file 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
--- OUTSIDE RECORDS SUMMARY | 2025-09-20 14:46 | XMS_ITS | Encounter Summary ---
Author Organization [facility] Address [address] [place] [address] Care Team Providers Care Residential Recycle Driver Name Role Phone Charles Delgadillo MD Primary Care Provider [phone] Encounter Details Date Type Department Care Team (Latest Contact Info) Description 06/05/2005 Outpatient [facility] [address] [place] [address] Miller Bustos DPM NO ADDRESS ON FILE LOWER LEG INJURY NOS (Primary Dx); MONONEURITIS LEG NOS; Plantar fibromatosis Social History Tobacco Use Types Packs/Day Years Used Date Smoking Tobacco: Never Assessed Comments Unknown Sex and Gender Information Value Date Recorded Sex Assigned at Not on file Legal Sex Female 5:59 AM CHEMICAL RESEARCH WORKER Gender Identity Not on file Sexual Orientation Not on file documented as of this encounter Plan of Treatment Not on file documented as of this encounter Visit Diagnoses Diagnosis Injury, other and unspecified, knee, leg, ankle, and foot- Primary Mononeuritis of lower limb, unspecified Plantar fibromatosis Plantar fascial fibromatosis documented in this encounter Care Teams Residential Recycle Driver Relationship Specialty Start Date End Date Charles Delgadillo MD [address] [place] [address] PCP - General Family Practice 09/05/10 documented as of this encounter
--- OUTSIDE RECORDS SUMMARY | 2025-09-20 14:46 | XMS_ITS | Encounter Summary ---
Author Organization [facility] Address [address] [place] [address] Care Team Providers Care Rn Residential Name Role Phone Charles Delgadillo MD Primary Care Provider [phone] Encounter Details Date Type Department Care Team (Late st Contact Info) Description 12/19/2005 Outpatient Historical [facility] Imaging Services [facility] [place] [address] Social History Tobacco Use Types Packs/Day Years Used Date Smoking Tobacco: Never Assessed Comments Unknown Sex and Gender Information Value Date Recorded Sex Assigned at Not on file Legal Sex Female 5:59 AM STORE HOST Gender Identity Not on file Sexual Orientation Not on file documented as of this encounter Plan of Treatment Not on file documented as of this encounter Procedures Procedure Name Priority Date/Time Associated Diagnosis Comments MRI THORACIC W WO CONTRAST Routine 12/19/2005 12:01 AM STORE HOST documented in this encounter Results * MRI THORACIC W WO CONTRAST (12/19/2005 12:01 AM STORE HOST) Anatomical Region Laterality Modality Spine Other 12/19/2005 12:0 1 AM STORE HOST Narrative 12/19/2005 12:01 AM STORE HOST MRI OF THE THORACIC SPINE BEFORE AND [...] a small cavity is present at the O5ryguo within the central spinal cord. The intradural [...] on filedocumented in this encounter Care Teams Rn Residential Relationship Specialty Start Date End Date Charles Delgadillo MD [address] [place] [address] PCP - General Family Practice 09/05/10 documented as of this encounter
--- OUTSIDE RECORDS SUMMARY | 2025-09-20 14:46 | XMS_ITS | Encounter Summary ---
Author Organization [employer] [facility] Address [address] [place] [address] Care Team Providers Care Set Up / Operator Name Role Phone Charles Delgadillo MD Primary Care Provider [phone] Encounter Details Date Type Department Care Team (Late st Contact Info) Description 01/11/2006 Outpatient Historical [facility] Neurology [address] [facility], [address] [place] [address] Tristen Aragon MD [address] [place] [address] Cervicalgia (Primary Dx) Social History Tobacco Use Types Packs/Day Years Used Date Smoking Tobacco: Never Assessed Comments Unknown Sex and Gender Information Value Date Recorded Sex Assigned at Not on file Legal Sex Female 5:59 AM INTERNATIONAL 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
--- OUTSIDE RECORDS SUMMARY | 2025-09-20 14:46 | XMS_ITS | Encounter Summary ---
Author Organization [facility] Address [address] [place] [address] Care Team Providers Care Lathing Supervisor Name Role Phone Charles Delgadillo MD Primary Care Provider [phone] Encounter Details Date Type Department Care Team (Latest Contact Info) Description 07/05/2005 Outpatient [facility] [address] [place] [address] Miller Bustos DPM NO ADDRESS ON FILE MONONEURITIS LEG NOS (Primary Dx); TENOSYNOVITIS FOOT/ANKLE; ACHILLES TENDINITIS Social History Tobacco Use Types Packs/Day Years Used Date Smoking Tobacco: Never Assessed Comments Unknown Sex and Gender Information Value Date Recorded Sex Assigned at Not on file Legal Sex Female 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
--- OUTSIDE RECORDS SUMMARY | 2025-09-20 14:46 | XMS_ITS | Encounter Summary ---
Author Organization [facility] Address [address] [place] [address] Care Team Providers Care Managed Security Sales Consultant Name Role Phone Charles Delgadillo MD Primary Care Provider [phone] Encounter Details Date Type Department Care Team (Late st Contact Info) Description 12/12/2005 Outpatient Historical [facility] Imaging Services [place] [id number] [place] [address] Social History Tobacco Use Types Packs/Day Years Used Date Smoking Tobacco: Never Assessed Comments Unknown Sex and Gender Information Value Date Recorded Sex Assigned at Not on file Legal Sex Female 5:59 AM REALTY SPECIALIST Gender Identity Not on file Sexual Orientation Not on file documented as of this encounter Plan of Treatment Not on file documented as of this encounter Visit Diagnoses Not on filedocumented in this encounter Care Teams Managed Security Sales Consultant Relationship Specialty Start Date End Date Charles Delgadillo MD [address] [place] [address] PCP - General Family Practice 09/05/10 documented as of this encounter
--- OUTSIDE RECORDS SUMMARY | 2025-09-20 14:46 | XMS_ITS | Encounter Summary ---
Author Organization [employer] [facility] Address [address] [place] [address] Care Team Providers Care Choke Setter Name Role Phone Charles Delgadillo MD Primary Care Provider [phone] Encounter Details Date Type Department Care Team (Late st Contact Info) Description 07/24/2006 Outpatient Historical [facility] [address] 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
--- OUTSIDE RECORDS SUMMARY | 2025-09-20 14:46 | XMS_ITS | Encounter Summary ---
Author Organization [facility] Address [address] [place] [address] Care Team Providers Care Screen Cleaner Name Role Phone Charles Delgadillo MD Primary Care Provider Encounter Details Date Type Department Care Team (Latest Contact Info) Description 06/19/2006 Outpatient Historical [facility] [address] [place] [phone] Melvin Caro Thoracic or Lumbosacral Neuritis or Radiculitis, Unspecified (Primary Dx) Social History Tobacco Use Types Packs/Day Years Used Date Smoking Tobacco: Never Assessed Comments Unknown Sex and Gender Information Value Date Recorded Sex Assigned at Not on file Legal Sex Female 5:59 AM CREDIT ASSISTANT Gender Identity Not on file Sexual Orientation Not on file documented as of this encounter Plan of Treatment Not on file documented as of this encounter Visit Diagnoses Diagnosis Thoracic or lumbosacral neuritis or radiculitis, unspecified- Primary documented in this encounter Care Teams Screen Cleaner Relationship Specialty Start Date End Date Charles Delgadillo MD [address] [place] [address] PCP - General Family Practice 09/05/10 documented as of this encounter
--- OUTSIDE RECORDS SUMMARY | 2025-09-20 14:46 | XMS_ITS | Encounter Summary ---
Author Organization [facility] Address [address] [place] [address] Care Team Providers Care Blood Bank Technician Name Role Phone Charles Delgadillo MD Primary Care Provider Encounter Details Date Type Department Care Team (Late st Contact Info) Description 07/17/2006 Outpatient [facility] [address] [place] [phone] Social History Tobacco Use Types Packs/Day Years Used Date Smoking Tobacco: Never Assessed Comments Unknown Sex and Gender Information Value Date Recorded Sex Assigned at Not on file Legal Sex Female 5:59 AM PREPARATION DEPARTMENT 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
--- OUTSIDE RECORDS SUMMARY | 2025-09-20 14:46 | XMS_ITS | Encounter Summary ---
Author Organization [facility] Address [address] [place] [address] Care Team Providers Care Technology Recruiter Name Role Phone Charles Delgadillo MD Primary Care Provider [phone] Encounter Details Date Type Department Care Team (Latest Contact Info) Description 07/17/[address] [facility] [place] [address] [place] [address] Miller Bustos DPM NO ADDRESS ON FILE TARSAL TUNNEL SYNDROME (Primary Dx) Social History Tobacco Use Types Packs/Day Years Used Date Smoking Tobacco: Never Assessed Comments Unknown Sex and Gender Information Value Date Recorded Sex Assigned at Not on file Legal Sex Female 5:59 AM OUTPATIENT DIETITIAN Gender Identity Not on file Sexual Orientation Not on file documented as of this encounter Plan of Treatment Not on file documented as of this encounter Visit Diagnoses Diagnosis Tarsal tunnel syndrome- Primary documented in this encounter Care Teams Technology Recruiter Relationship Specialty Start Date End Date Charels Delgadillo MD [address] [place] [address] PCP - General Family Practice 09/05/10 documented as of this encounter
--- OUTSIDE RECORDS SUMMARY | 2025-09-20 14:46 | XMS_ITS | Encounter Summary ---
Author Organization [facility] Address [address] [place] [address] Care Team Providers Care Sign Maker Name Role Phone Charles Delgadillo MD Primary Care Provider [phone] Encounter Details Date Type Department Care Team (Latest Contact Info) Description 06/06/2004 Outpatient Historical [facility] Orthopedics- [address] [place] [address] Gamaliel Gracia MD [address] [place] [phone] SHOULDER REGION DIS NEC (Primary Dx); SUPERIOR GLENOID LABRUM LES; CHONDROMALACIA Social History Tobacco Use Types Packs/Day Years Used Date Smoking Tobacco: Never Assessed Comments Unknown Sex and Gender Information Value Date Recorded Sex Assigned at Not on file Legal Sex Female 5:59 AM MARGIN ANALYST Gender Identity Not on file Sexual Orientation Not on file documented as of this encounter Plan of Treatment Not on file documented as of this encounter Visit Diagnoses Diagnosis Other affections of shoulder region, not elsewhere classified- Primary Superior glenoid labrum lesion Chondromalacia documented in this encounter Care Teams Sign Maker Relationship Specialty Start Date End Date Charles Delgadillo MD [address] [place] [address] PCP - General Family Practice 09/05/10 documented as of this encounter
--- OUTSIDE RECORDS SUMMARY | 2025-09-20 14:46 | XMS_ITS | Encounter Summary ---
Author Organization [facility] Address [address] [place] [address] Care Team Providers Care Instrumental Music Teacher Name Role Phone Charles Delgadillo MD Primary Care Provider [phone] Encounter Details Date Type Department Care Team (Latest Contact Info) Description 03/08/2005 Outpatient Historical [facility] Medicine [address] [phone] Rita Chand MD NO ADDRESS ON FILE URIN TRACT INFECTION NOS (Primary Dx); ALLERGIC RHINITIS NOS Social History Tobacco Use Types Packs/Day Years Used Date Smoking Tobacco: Never Assessed Comments Unknown Sex and Gender Information Value Date Recorded Sex Assigned at Not on file Legal Sex Female 5:59 AM MEDICAL SECRETARY RECEPTIONIST Gender Identity Not on file Sexual Orientation Not on file documented as of this encounter Plan of Treatment Not on file documented as of this encounter Visit Diagnoses Diagnosis Urinary tract infection, site not specified- Primary Allergic rhinitis, cause unspecified documented in this encounter Care Teams Instrumental Music Teacher Relationship Specialty Start Date End Date Charles Delgadillo MD [address] [place] [address] PCP - General Family Practice 09/05/10 documented as of this encounter
--- OUTSIDE RECORDS SUMMARY | 2025-09-20 14:46 | XMS_ITS | Encounter Summary ---
Author Organization [facility] Address [address] [place] [address] Care Team Providers Care Die Cutter Operator Name Role Phone Charles Delgadillo MD Primary Care Provider [phone] Encounter Details Date Type Department Care Team (Latest Contact Info) Description 08/27/2006 Outpatient Historical [facility] [address] [place] [phone] Melvin Caro Disorders of Sacrum (Primary Dx); Thoracic or Lumbosacral Neuritis or Radiculitis, Unspecified Social History Tobacco Use Types Packs/Day Years Used Date Smoking Tobacco: Never Assessed Comments Unknown Sex and Gender Information Value Date Recorded Sex Assigned at Not on file Legal Sex Female 5:59 AM 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
--- OUTSIDE RECORDS SUMMARY | 2025-09-20 14:46 | XMS_ITS | Encounter Summary ---
Author Organization [facility] Address [address] [place] [address] Care Team Providers Care Register In Chancery Name Role Phone Charles Delgadillo MD Primary Care Provider [phone] Encounter Details Date Type Department Care Team (Latest Contact Info) Description 05/28/2006 [facility]patient [facility] [address] [place] [phone] Melvin Caro Thoracic or Lumbosacral Neuritis or Radiculitis, Unspecified (Primary Dx) Social History Tobacco Use Types Packs/Day Years Used Date Smoking Tobacco: Never Assessed Comments Unknown Sex and Gender Information Value Date Recorded Sex Assigned at Not on file Legal Sex Female 5:59 AM RETAIL ASSET PROTECTION SPECIALIST Gender Identity Not on file Sexual Orientation Not on file documented as of this encounter Plan of Treatment Not on file documented as of this encounter Visit Diagnoses Diagnosis Thoracic or lumbosacral neuritis or radiculitis, unspecified- Primary documented in this encounter Care Teams Register In Chancery Relationship Specialty Start Date End Date Charles Delgadillo MD [address] [place] [address] PCP - General Family Practice 09/05/10 documented as of this encounter
--- OUTSIDE RECORDS SUMMARY | 2025-09-20 14:46 | XMS_ITS | Encounter Summary ---
Author Organization [facility] Address [address] [place] [address] Care Team Providers Care Outsole Cementer Name Role Phone Charles Delgadillo MD Primary Care Provider [phone] Encounter Details Date Type Department Care Team (Latest Contact Info) Description 10/30/2006 Outpatient Historical [facility] [address] [place] [phone] Melvin Caro Disorders of Sacrum (Primary Dx) Social History Tobacco Use Types Packs/Day Years Used Date Smoking Tobacco: Never Assessed Comments Unknown Sex and Gender Information Value Date Recorded Sex Assigned at Not on file Legal Sex Female 5:59 AM LICENSED HOME INSPECTOR Gender Identity Not on file Sexual Orientation Not on file documented as of this encounter Plan of Treatment Not on file documented as of this encounter Visit Diagnoses Diagnosis Disorders of sacrum- Primary documented in this encounter Care Teams Outsole Cementer Relationship Specialty Start Date End Date Charles Delgadillo MD [address] [place] [address] PCP - General Family Practice 09/05/10 documented as of this encounter
--- OUTSIDE RECORDS SUMMARY | 2025-09-20 14:46 | XMS_ITS | Encounter Summary ---
Author Organization [employer] [facility] Address [address] [place] [address] Care Team Providers Care Pasting Machine Operator Name Role Phone Charles Delgadillo MD Primary Care Provider [phone] Encounter Details Date Type Department Care Team (Latest Contact Info) Description 04/24/2006 Outpatient Historical [facility] Neurology [address] [facility], [address] [place] [address] Tristen Aragon MD [address] [place] [address] Lack of Coordination (Primary Dx) Social History Tobacco Use Types Packs/Day Years Used Date Smoking Tobacco: Never Assessed Comments Unknown Sex and Gender Information Value Date Recorded Sex Assigned at Not on file Legal Sex Female 5:59 AM MAKEUP ARTIST Gender Identity Not on file Sexual Orientation Not on file documented as of this encounter Plan of Treatment Not on file documented as of this encounter Visit Diagnoses Diagnosis Lack of coordination- Primary documented in this encounter Care Teams Pasting Machine Operator Relationship Specialty Start Date End Date Charles Delgadillo MD [address] [place] [address] PCP - General Family Practice 09/05/10 documented as of this encounter
--- OUTSIDE RECORDS SUMMARY | 2025-09-20 14:46 | XMS_ITS | Encounter Summary ---
Author Organization [employer] [facility] Address [address] [place] [address] Care Team Providers Care Rf Microwave Engineer Name Role Phone Charles Delgadillo MD Primary Care Provider [phone] Encounter Details Date Type Department Care Team (Late st Contact Info) Description 10/26/2005 Outpatient Historical [facility] Thomas Anne MD [address] [phone] Social History Tobacco Use Types Packs/Day Years Used Date Smoking Tobacco: Never Assessed Comments Unknown Sex and Gender Information Value Date Recorded Sex Assigned at Not on file Legal Sex Female 5:59 AM CLOTHER IN Gender Identity Not on file Sexual Orientation Not on file documented as of this encounter Plan of Treatment Not on file documented as of this encounter Visit Diagnoses Not on filedocumented in this encounter Care Teams Rf Microwave Engineer Relationship Specialty Start Date End Date Charles Delgadillo MD [address] [place] [address] PCP - General Family Practice 09/05/10 documented as of this encounter
--- OUTSIDE RECORDS SUMMARY | 2025-09-20 14:46 | XMS_ITS | Encounter Summary ---
Author Organization [employer] [facility] Address [address] [place] [address] Care Team Providers Care Project Administrative Assistant Name Role Phone Charles Delgadillo MD Primary Care Provider [phone] Encounter Details Date Type Department Care Team (Latest Contact Info) Description 11/01/2006 Outpatient Historical [facility] Pain Management Procedures [address] [place] [phone] Melvin Caro Disorders of Sacrum (Primary Dx) Social History Tobacco Use Types Packs/Day Years Used Date Smoking Tobacco: Never Assessed Comments Unknown Sex and Gender Information Value Date Recorded Sex Assigned at Not on file Legal Sex Female 5:59 AM DEWATERER OPERATOR Gender Identity Not on file Sexual Orientation Not on file documented as of this encounter Plan of Treatment Not on file documented as of this encounter Visit Diagnoses Diagnosis Disorders of sacrum- Primary documented in this encounter Care Teams Project Administrative Assistant Relationship Specialty Start Date End Date Charles Delgadillo MD [address] [place] [address] PCP - General Family Practice 09/05/10 documented as of this encounter
--- OUTSIDE RECORDS SUMMARY | 2025-09-20 14:46 | XMS_ITS | Encounter Summary ---
Author Organization [facility] Address [address] [place] [address] Care Team Providers Care Shift Mgr Name Role Phone Charles Delgadillo MD Primary Care Provider [phone] Encounter Details Date Type Department Care Team (Latest Contact Info) Description 05/08/2005 Outpatient [facility] Family Medicine [place] [address] [facility] [address] [place] [address] Thomas Anne MD [address] [address] HYPERLIPIDEMIA NEC/NOS (Primary Dx); Pain in limb Social History Tobacco Use Types Packs/Day Years Used Date Smoking Tobacco: Never Assessed Comments Unknown Sex and Gender Information Value Date Recorded Sex Assigned at Not on file Legal Sex Female 5:59 AM DATA ANALYST REPORT WRITER Gender Identity Not on file Sexual Orientation Not on file documented as of this encounter Plan of Treatment Not on file documented as of this encounter Visit Diagnoses Diagnosis Other and unspecified hyperlipidemia- Primary Pain in limb Pain in soft tissues of limb documented in this encounter Care Teams Shift Mgr Relationship Specialty Start Date End Date Charles Delgadillo MD [address] [place] [address] PCP - General Family Practice 09/05/10 documented as of this encounter
--- OUTSIDE RECORDS SUMMARY | 2025-09-20 14:46 | XMS_ITS | Encounter Summary ---
Author Organization [facility] Address [address] [place] [address] Care Team Providers Care Temperature Logging Operator Name Role Phone Charles Delgadillo MD Primary Care Provider [phone] Encounter Details Date Type Department Care Team (Latest Contact Info) Description 05/23/2004 Outpatient Historical [facility] [address] [phone] Gamaliel Gracia MD [address] [place] [address] SHOULDER REGION DIS NEC (Primary Dx) Social History Tobacco Use Types Packs/Day Years Used Date Smoking Tobacco: Never Assessed Comments Unknown Sex and Gender Information Value Date Recorded Sex Assigned at Not on file Legal Sex Female 5:59 AM PANTRY CHEF Gender Identity Not on file Sexual Orientation Not on file documented as of this encounter Plan of Treatment Not on file documented as of this encounter Visit Diagnoses Diagnosis Other affections of shoulder region, not elsewhere classified- Primary documented in this encounter Care Teams Temperature Logging Operator Relationship Specialty Start Date End Date Charles Delgadillo MD [address] [place] [address] PCP - General Family Practice 09/05/10 documented as of this encounter
--- OUTSIDE RECORDS SUMMARY | 2025-09-20 14:46 | XMS_ITS | Encounter Summary ---
Author Organization [employer] [facility] Address [address] [place] [address] Care Team Providers Care Geological Sample Tester Name Role Phone Charles Delgadillo MD Primary Care Provider [phone] Encounter Details Date Type Department Care Team (Latest Contact Info) Description 06/12/2006 Outpatient Historical [facility] [address] 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
--- OUTSIDE RECORDS SUMMARY | 2025-09-20 14:46 | XMS_ITS | Encounter Summary ---
Author Organization [facility] Address [address] [place] [address] Care Team Providers Care Cephalometric Tracer Name Role Phone Charles Delgadillo MD Primary Care Provider [phone] Encounter Details Date Type Department Care Team (Latest Contact Info) Description 01/02/2005 Outpatient [facility] Medicine [place] [address] [facility] [address] [place] [address] Thomas Anne MD [address] [address] OSTEOARTHROS NOS-UNSPEC (Primary Dx); INSOMNIA NEC Social History Tobacco Use Types Packs/Day Years Used Date Smoking Tobacco: Never Assessed Comments Unknown Sex and Gender Information Value Date Recorded Sex Assigned at Not on file Legal Sex Female 5:59 AM DEBURRING TECHNICIAN Gender Identity Not on file Sexual Orientation Not on file documented as of this encounter Plan of Treatment Not on file documented as of this encounter Visit Diagnoses Diagnosis Osteoarthrosis, unspecified whether generalized or localized, unspecified site- Primary Insomnia, unspecified documented in this encounter Care Teams Cephalometric Tracer Relationship Specialty Start Date End Date Charles Delgadillo MD [address] [place] [phone] PCP - General Family Practice 09/05/10 documented as of this encounter
--- OUTSIDE RECORDS SUMMARY | 2025-09-20 14:46 | XMS_ITS | Encounter Summary ---
Author Organization [facility] Address [address] [place] [address] Care Team Providers Care Form Coverer Name Role Phone Charles Delgadillo MD Primary Care Provider [phone] Encounter Details Date Type Department Care Team (Latest Contact Info) Description 08/20/2005 Outpatient [facility] Family Medicine [place] [address] [facility] [address] [place] [phone] Thomas Anne MD [address] [phone] ROUTINE FRONT OFFICE AGENT EXAMINATION (Primary Dx) Social History Tobacco Use Types Packs/Day Years Used Date Smoking Tobacco: Never Assessed Comments Unknown Sex and Gender Information Value Date Recorded Sex Assigned at Not on file Legal Sex Female 5:59 AM [employer] HEAD INSPECTOR AND ADJUSTER Gender Identity Not on file Sexual Orientation Not on file documented as of this encounter Plan of Treatment Not on file documented as of this encounter Visit Diagnoses Diagnosis Routine gynecological examination- Primary documented in this encounter Care Teams Form Coverer Relationship Specialty Start Date End Date Charles Delgadillo MD [address] [place] [address] PCP - General Family Practice 09/05/10 documented as of this encounter
--- OUTSIDE RECORDS SUMMARY | 2025-09-20 14:46 | XMS_ITS | Clinical Summary ---
Author Organization [facility] Address [address] [facility] [place] [address] Care Team Providers Care Crew Mess Attendant Name Role Phone Norman Caldera MD Primary Care Provider [phone] Allergies Active Allergy Reactions Criticality Noted Date [...] unspecified whether stage 3a or 3b CKD ([facility]) Used to check blood sugar before each meal and bedtime. Uses sliding scale insulin. 1 Kit 022 Active lancetsIndicat ions:Type 2 diabetes mellitus with stage 3 chronic kidney disease, without long-term current use of insulin, unspecified whether stage 3a or 3b CKD ([facility]) Used to check blood sugar before each meal and bedtime. Uses sliding scale insulin. DX:E11.22 200 Each 3 022 Active blood sugar diagnostic (Blood Glucose Test) Strip Used to check blood sugar before each meal and bedtime. Uses sliding scale insulin. DX:E11.22 200 Each 3 022 Active Blood-Glucose Meter,Continuo us (Dexcom G7 Senior Devops Engineer) USE DIRECTED. 1 Each 023 Active albuterol [...] intramuscular injection every 28 days. Active Insulin [place], Disposable, (BD Nayana 2nd Gen Pen Needle) 32 gauge x 5/32 Needle USE DIRECTED UP TO 5 TIMES DAILY (E11.65) 500 Each 025 Active atorvastatin (LIPITOR) 20 mg tabletIndicati ons:Type 2 diabetes mellitus with stage 3a chronic kidney disease, with long-term current use of insulin ([facility]) Take 1 tablet by mouth once [...] 025 Active fluticasone propionate (FLONASE) 50 mcg/spray [place], Suspension nasal inhalerIndicat ions:Obstructi ve sleep apnea [...] disease, with long-term current use of insulin ([facility]) INJECT SUBCUTANEOUSLY DIRECTED PER SLIDING SCALE [...] disease, with long-term current use of insulin ([facility]) INJECT 55 UNITS SUBCUTANEOUSLY ONCE DAILY 45 mL 1 025 Active famciclovir (FAMVIR) 500 mg tabletIndicati ons:Lymphoprol iferative disease ([facility]) Take 1 tablet by mouth once daily 90 Tablet 1 025 Active Blood-Glucose Sensor (Dexcom G7 Sensor) DeviceIndicati ons:Type 2 diabetes mellitus with stage 3a chronic kidney disease, with long-term current use of insulin ([facility]) USE DIRECTED. REPLACE EVERY 10 DAYS. [...] disease, with long-term current use of insulin ([facility]) USE DIRECTED REPLACE EVERY 10 DAYS [...] Encounters Date Type Department Care Team Description 09/20/2025 Orders Only [facility] HIM [address] [place] [address] Provider, Abstract 09/09/[address] [phone] Normna Caldera MD Primary insomnia 09/07/[address] [phone] Norman Caldera MD Primary insomnia 09/03/2025 [facility] Endocrinology [facility] [address] [facility] [address] [place] [address] Janet Ortiz MD Type 2 diabetes mellitus with stage 3a chronic kidney disease, with long-term current use of insulin ([facility]) 08/22/2025 Results Follow-Up [address] [phone] Norman Caldera MD HEMOGLOBIN A1C, COMPREHENSIVE METABOLIC PANEL, CBC WITH DIFFERENTIAL 08/16/2025 2:20 PM STRAIGHT LINE PRESS SETTER Office Visit [facility] [address] [place] [address] [phone] Norman Caldera MD Hospital discharge follow-up (Primary Dx); Type 2 diabetes mellitus with stage 3b chronic kidney disease, with long-term current use of insulin (CMS/HCC); Anemia, unspecified type; Follicular cyst of skin; Uses walker 08/16/2025 Orders Only [facility] [place] [phone] Deepthi Ray, CAP JEWEL PLATE ASSEMBLER Hepatic cirrhosis, unspecified hepatic cirrhosis type, unspecified whether ascites present (CMS/HCC) 08/15/2025 Results Follow-Up [address] [place] [phone] La Hancock, GEO US ABDOMEN LIMITED 08/12/2025 9:54 AM STRAIGHT LINE PRESS SETTER - 08/12/2025 11:59 PM STRAIGHT LINE PRESS SETTER Hospital Encounter [facility] Ultrasound [place] [address] [place] [phone] La Hancock, CAP JEWEL PLATE ASSEMBLER Discharge Disposition: Home or Self Care 08/07/2025 9:30 AM STRAIGHT LINE PRESS SETTER - 08/07/2025 1:02 PM STRAIGHT LINE PRESS SETTER Emergency [facility] Emergency Medicine [address] [place] [phone] Jose Pittman DO Generalized muscle weakness (Primary Dx); Dizziness; Type 2 diabetes mellitus with hyperglycemia, with long-term current use of insulin ([facility]/HCC) Discharge Disposition: Home or Self Care 08/07/2025 Nurse Triage [facility] [address] [place] [address] Elvira Waggoner RN 08/03/2025 External Device Data [facility] ABSTRACTION Provider, Abstract 08/03/2025 External Device Data [facility] Provider, Abstract 08/03/2025 External Device Data [facility] [place] Provider, Abstract 08/02/2025 10:00 AM STRAIGHT LINE PRESS SETTER Office Visit [address] [phone] Deepthi Ray, CAP JEWEL PLATE ASSEMBLER Hepatic cirrhosis, unspecified hepatic cirrhosis type, unspecified whether ascites present (CMS/HCC) (Primary Dx); Heyd's syndrome (CMS/HCC) 07/30/2025 External Device Data [facility] Family Medicine [address] [place] [address] Nan Batres MD 07/29/2025 4:39 PM STRAIGHT LINE PRESS SETTER - 07/29/2025 8:59 PM STRAIGHT LINE PRESS SETTER Emergency [facility] Emergency Medicine [address] [place] [phone] Mychal Perera MD Sindlinger, Timothy S, MD Pneumonia of left lower lobe due to infectious organism (Primary Dx) Discharge Disposition: Home or Self Care 07/29/2025 Travel 07/14/2025 Abstract [facility] [place] [address] Gabrielle Luciano RN 07/14/2025 External Device Data [facility]STRACTION Provider, Abstract 07/13/[address] [place] [phone] Gabrielle Luciano RN 07/07/2025 [facility] [address] [phone] Norman Caldera MD 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) 06/23/2025 [facility] Endocrinology [facility] [address] [place] [address] Janet Ortiz MD Type 2 diabetes mellitus with stage 3b chronic kidney disease, with long-term current use of insulin ([facility]) 06/22/2025 External Device Data [facility] ABSTRACTION Provider, Abstract from Last 3 Months Immunizations Immunization Administration Dates Next Due (ADACEL/BOOSTRIX)(10 YR UP) TDAP VACCINE, 0.5ML, IM 1949 (PFIZER)(12 YR UP) COVID-19 VACCINE - EMERGENCY USE AUTHORIZATION, MRNA, [id number]) 30 MCG/0.3 ML IM SUSP 04/15/2022,08/06/2021,02/01/2021,01/11 (PNEUMOVAX [...] Steven murdered Other Brother 2 Paul aldridge [place] Healthy Daughter 1 Velvet Healthy Daughter 2 [...] worry about transportation for future doctor visits, last picker medication, etc.? No 2024 Housing Stability [...] on file Legal Sex Female 2:09 AM STRAIGHT LINE PRESS SETTER Gender Identity Not on file Sexual Orientation Not on file Last Filed Vital Signs Vital Sign Reading Time Taken Comments Blood Pressure 136/66 08/16/2025 1:40 PM STRAIGHT LINE PRESS SETTER Pulse 95 08/16/2025 1:40 PM STRAIGHT LINE PRESS SETTER Temperature 36.2 C (97.2 F) 08/16/2025 1:40 PM STRAIGHT LINE PRESS SETTER Respiratory Rate 18 08/07/2025 1:00 PM STRAIGHT LINE PRESS SETTER Oxygen Saturation 94% 08/16/2025 1:40 PM STRAIGHT LINE PRESS SETTER Inhaled Oxygen Concentration - - Weight 83.5 kg (184 lb) 08/16/2025 1:40 PM STRAIGHT LINE PRESS SETTER Height 162.6 cm (5' 4 ) 08/16/2025 1:40 PM STRAIGHT LINE PRESS SETTER Body Mass Index 31.58 08/16/2025 1:40 PM STRAIGHT LINE PRESS SETTER Plan of Treatment Upcoming Encounters Date Type Department Care Team (Late st Contact Info) Description 11/16/2025 11:40 AM STRAIGHT LINE PRESS SETTER Office Visit [facility] Family Medicine [address] [phone] Norman Caldera MD [address] [phone] 02/01/2026 9:30 AM CDT Office Visit [facility] G[facility]enter[facility]- [place] [address] [phone] Deepthi Ray NP [address] [phone] Health Maintenance Due Date Last Done Comments DTAP/TDAP/TD VACCINES (1 - Tdap) 02/10/1968 02/09/19 49 OSTEOPOROSIS SCREENING 10/23/2018 4, 10/23/2013, 10/23/2013 ZOSTER VACCINE (2 of 2) 08/21/2023 06/26/2023 RSV VACCINE (60+ or ) (1 - 1-dose 75+ series) 02/10/2024 LDL CHOLESTEROL ANNUAL 12/05/2024 4, 12/27/2022, 09/04/2019, Additional history exists DIABETES ANNUAL FOOT EXAM 03/09/20252023, 01/23/2023, 11/10/2021, Additional history exists COVID-19 Vaccine (2024-2 6 season) 2025 04/15/2022, 08/06/2021, 02/01/2021, Additional history exists DIABETES MICROALBUMIN ANNUAL SCREEN 01/14/2026 01/14/2025, 12/06/2023, 12/27/2022, Additional history exists DIABETES ANNUAL RETINAL EXAM 01/19/2026, 03/20/2024, 03/15/2023, Additional history exists DIABETES HBA1C Q 6 MONTHS 02/13/20262024, 01/21/2025, 10/23/2024, Additional history exists UPPER GI ENDOSCOPY 05/31/2027 05/31/2025, 0 02/12/2022, 02/12/2022, Additional history exists PNEUMOCOCCAL VACCINE 50+ YEARS Completed 1 09/28/2014, 06/07/2014, 01/21/2007, Additional history exists FIT/FOBT Q 1 year Discontinued 07/15/2023 COLORECTAL SCREENING Discontinued 09/26/2023, 09/26/2023, 10/28/2014, Additional history exists Colorectal Cancer Screening Discontinued KHE uACR (Auto Order) Completed 01/14/2025 , 12/06/2023, 12/27/2022, Additional history exists [place] Preventative Visit/Annual Wellness Visit Completed 03/09/2025, 03/09/2024, 12/20/2022, Additional history exists INFLUENZA VACCINE Completed 08/17/2025, , 07/01/2022, Additional history exists KHE eGFR (Auto Order) Completed 09/18/2025 , 08/16/2025, 08/07/2025, Additional history exists FIT-DNA Q 3 years Discontinued Flex Sig/CT Colonography Q 5 years Discontinued Goals Goal Patient Goal Type Associated Problems Recent Progress Patient-Stated? Author HYPERTENSIO N CARE PLAN GOAL Care Plan PALLAVI MYC HYPERTENSION CARE PLAN PROBLEM No Norman Caldera MD Medical Devices Implanted Type Area Motor Transport Inspector Device Identifier Shelf Expiration Date Model / Serial / Lot Log 1458 - Mesh Ethicon Hernia - 1 - Barrier Seprafilm [id number] Implanted:Qty: 1 on 10/07/2008 Adhesion Barrier N/A: Abdomen GENZYME- BIOSURG 4301-02 / / [id number] Tightrope Mini Cmc 1.1mm T-Rope Ar-8919ds - Sn/A Implanted:Qty: 1 on 03/20/2023 by Angela Szymanski MD at [facility] [place] Right: Thumb ARTHREX INC 06/22/2027 AR-8919DS / N/A / [id number] Cement Simplex Hvisc 6194-1-010 - [id number] Implanted:Qty: 1 on 07/02/2017 by Alex Phillips MD Cement Left: Knee GENEVIEVE- HOWMEDICA INT INC 12/21/2018 6194-1-010 / / [id number] Closure Perclose Prostyle Sut Mediate 75646-23 - [id number] Implanted:Qty: 1 on 09/03/2023 at [facility] Closure Device Right: Groin CRUZ- VASC DEVICE 05/23/2025 44370-45 / / [id number] Closure Perclose Prostyle Sut Mediate 51625-96 - [id number] Implanted:Qty: 1 on 10/16/2023 by Paul Ospina MD at [facility] Closure Device Right: Groin CRUZ- VASC DEVICE 06/22/2025 97507-04 / / [id number] Closure Perclose Prostyle Sut Mediate 24976-70 - [id number] Implanted:Qty: 1 on 10/16/2023 by Paul Ospina MD at [facility] Closure Device Right: Groin CRUZ- VASC DEVICE 06/22/2025 90708-99 / / [id number] Closure Perclose Prostyle Sut Mediate 13862-52 - [id number] Implanted:Qty: 1 on 10/16/2023 by Paul Ospina MD at [facility] Closure Device Left: Groin CRUZ- VASC DEVICE 06/22/2025 81974-66 / / [id number] Lens Io Bi-Aspheric Softechd+16.0 - [id number] Implanted:Qty: 1 on 12/22/2020 by Jeremias Banerjee MD Eye Left: Eye LENSTEC INC 07/11/2022 SOFTECHD+16 .0 / [id number] / Lens Io Tecnis 15.0 [id number] - [id number] Implanted:Qty: 1 on 01/13/2021 by Jeremias Banerjee MD Eye Right: Eye CRUZ MED OPTICS-J&J VISION 11/04/2024 [id number] / [id number] / Hemostatic Surgifoam Sz12-7 1971 - Sn/A Implanted:Qty: 1 on 03/20/2023 by Angela Szymanski MD at [facility] Hemostatic Right: Thumb J&J- ETHICON ENDO-SURGERY INC 10/08/20261971 / N/A / [id number] Cup Pinn Sctr Series 52mm 1217-22-052 - [id number] Implanted:Qty: 1 on 07/11/2016 by Paco Joe MD Hip Right: Hip J&J- DEPUY ORTHOPAEDICS INC 04/22/2026 [id number] / / [id number] Head Fem Art/Tereso M-Spec 1365-52-000 - [id number] Implanted:Qty: 1 on 07/11/2016 by Paco Joe MD Hip Right: Hip J&J- DEPUY ORTHOPAEDICS INC 01/20/2021 1365-52-000 / / [id number] Liner Pinn Altrx Poly 1221-36-052 - [id number] Implanted:Qty: 1 on 07/11/2016 by Paco Joe MD Hip Right: Hip J&J- DEPUY ORTHOPAEDICS INC 05/23/2021 [id number] / / [id number] Stem Fem Coleman Por Sz5 1570-01-110 - [id number] Implanted:Qty: 1 on 07/11/2016 by Paco Joe MD Hip Right: Hip J&J- DEPUY ORTHOPAEDICS INC 04/22/2026 1570-01-110 / / [id number] Comp Fem Gnsii Ps Cnstr Sz3 7088-7304 - [id number] Implanted:Qty: 1 on 07/02/2017 by Alex Phillips MD Knee Left: Knee RICO NEPHEW ORTHO 01/07/2027 [id number] / / [id number] Comp Tib Gnsii Director Of Email Marketing Sz2 Lt 9642-6016 - [id number] Implanted:Qty: 1 on 07/02/2017 by Alex Phillips MD Knee Left: Knee RICO NEPHEW ORTHO 05/13/2025 [id number] / / [id number] Insert Lgn Ps Xlpe Sz 1 2 11mm [id number] - [id number] Implanted:Qty: 1 on 07/02/2017 by Alex Phillips MD Knee Left: Knee RICO NEPHEW ORTHO 07/30/2026 [id number] / / [id number] Patella Gnsii Biconvex 23mm 3397-3351 - [id number] Implanted:Qty: 1 on 07/02/2017 by Alex Phillips MD Knee Left: Knee RICO NEPHEW ORTHO 03/20/2027 [id number] / / [id number] Log 1458 - Mesh Ethicon Hernia - 1 - Mesh Proceed [id number] Implanted:Qty: 1 on 10/07/2008 Mesh N/A: Abdomen J&J- ETHICON INC 11/21/2009 PCDH1 / / [id number] Loc 4.5x26mm Sqe641 - [id number] Implanted:Qty: 1 on 11/13/2016 by Alex Phillips MD Screw Left: Shoulder TORNIER INC 11/20/2016 IUS794 / / [id number] Screw Aequalis St Loc 4.5x26mm Upj090 - [id number] Implanted:Qty: 1 on 11/13/2016 by Alex Phillips MD Screw Left: Shoulder TORNIER INC 11/20/2016 BJI078 / / [id number] Baseplate Aequalis Rvrsii Ygh545 - [id number] Implanted:Qty: 1 on 11/13/2016 by Alex Phillips MD Shoulder Left: Shoulder TORNIER INC 10/10/2021 VEZ971 / / [id number] Glenoid Sphere Aequalis Rvrs Ii Tet455 - [id number] Implanted:Qty: 1 on 11/13/2016 by Alex Phillips MD Shoulder Left: Shoulder TORNIER INC 09/18/2021 NXE599 / / [id number] Ins Ascnd Flx Rvrs 36mm Uup848j - [id number] Implanted:Qty: 1 on 11/13/2016 by Alex Phillips MD Shoulder Left: Shoulder TORNIER INC 10/02/2021 [id number] / / [id number] Stem Hum Ascnd Flx Ptc Std Sz2b Odt312u - [id number] Implanted:Qty: 1 on 11/13/2016 by Alex Phillips MD Shoulder Left: Shoulder TORNIER INC 07/24/2021 [id number] / / [id number] Tray Hum Ascnd Flx Ecc Rev Sih386 - [id number] Implanted:Qty: 1 on 11/13/2016 by Alex Phillips MD Shoulder Left: Shoulder TORNIER INC 09/28/2021 EQL812 / / [id number] Vlv Aort Evolut Fx Tavr 26mm Evolutfx-26 - [id number] Implanted:Qty: 1 on 10/16/2023 by Paul Ospina MD at [facility] Valve N/A: Heart MEDTRONIC- HEART VALVE 03/26/2025 EVOLUTFX-26 / [id number] / Explanted Type Area Motor Transport Inspector Device Identifier Shelf Expiration Date Model / Serial / Lot Dlvry Sys Evolut Fx 23-29mm H-Otmggkvg-1206 - [id number] Explanted:Qty: 1 on 10/16/2023 at [facility] Valve N/A: Heart MEDTRONIC- HEART VALVE 06/17/2025 D-EVOLUTFX -2329 / [id number] TFX-[id number] / [id number] Procedures Procedure Name Priority Date/Time Associated Diagnosis Comments COMPREHENSIVE METABOLIC PANEL Routine 09/18/2025 11:09 AM STRAIGHT LINE PRESS SETTER CBC WITH DIFFERENTIAL Routine 08/16/2025 2:17 PM STRAIGHT LINE PRESS SETTER Hospital discharge follow-up Anemia, unspecified type COMPREHENSIVE METABOLIC PANEL Routine 08/16/2025 2:17 PM STRAIGHT LINE PRESS SETTER Type 2 diabetes mellitus with stage 3b chronic kidney disease, with long-term current use of insulin (CMS/HCC) FRUCTOSAMINE Routine 08/16/2025 2:17 PM STRAIGHT LINE PRESS SETTER Type 2 diabetes mellitus with stage 3b chronic kidney disease, with long-term current use of insulin (CMS/HCC) HEMOGLOBIN A1C Routine 08/16/2025 2:17 PM STRAIGHT LINE PRESS SETTER Type 2 diabetes mellitus with stage 3b chronic kidney disease, with long-term current use of insulin (CMS/HCC) US ABDOMEN LIMITED Routine 08/12/2025 10 :33 AM STRAIGHT LINE PRESS SETTER Hepatic cirrhosis, unspecified hepatic cirrhosis type, unspecified whether ascites present (CMS/HCC) TELEMETRY REPORT 08/09/2025 12:1 8 PM STRAIGHT LINE PRESS SETTER TROPONIN 2 HR, 5TH GEN Timed Study 08/07/2025 11:35 AM STRAIGHT LINE PRESS SETTER POC GLUCOSE Stat 08/07/2025 11:12 AM STRAIGHT LINE PRESS SETTER URINALYSIS W/REFLEX MICROSCOPIC Stat 08/07/2025 10:11 AM STRAIGHT LINE PRESS SETTER XR CHEST PA OR AP 1 VW Stat 08/07/2025 10:03 AM STRAIGHT LINE PRESS SETTER DIFFERENTIAL, MANUAL Stat 08/07/2025 9:50 AM STRAIGHT LINE PRESS SETTER BRAIN NATRIURETIC PEPTIDE, BNP OR PROBNP Stat 08/07/2025 9:50 AM STRAIGHT LINE PRESS SETTER EXTRA TUBE (BLUE) Stat 08/07/2025 9:5 0 AM STRAIGHT LINE PRESS SETTER EXTRA TUBE Stat 08/07/2025 9:50 AM STRAIGHT LINE PRESS SETTER COMPREHENSIVE METABOLIC PANEL Stat 08/07/2025 9:50 AM STRAIGHT LINE PRESS SETTER CBC WITH DIFFERENTIAL Stat 08/07/2025 9:50 AM STRAIGHT LINE PRESS SETTER TROPONIN BASELINE, 5TH GEN Stat 08/07/2025 9:50 AM STRAIGHT LINE PRESS SETTER OXYGEN VIA DEVICE TO KEEP O2 SAT ABOVE Stat 08/07/2025 9:36 AM STRAIGHT LINE PRESS SETTER TROPONIN 2 HR, 5TH GEN Timed Study 07/29/2025 7:30 PM STRAIGHT LINE PRESS SETTER URINALYSIS W/REFLEX MICROSCOPIC Stat 07/29/2025 7:17 PM STRAIGHT LINE PRESS SETTER EKG 12-LEAD Stat 07/29/2025 6:43 PM STRAIGHT LINE PRESS SETTER CT ABDOMEN PELVIS W CONTRAST Stat 07/29/2025 6:19 PM STRAIGHT LINE PRESS SETTER XR CHEST PA OR AP 1 VW Stat 07/29/2025 6:19 PM STRAIGHT LINE PRESS SETTER DIFFERENTIAL, MANUAL Stat 07/29/2025 5:20 PM STRAIGHT LINE PRESS SETTER TROPONIN BASELINE, 5TH GEN Stat 07/29/2025 5:20 PM STRAIGHT LINE PRESS SETTER LIPASE Stat 07/29/2025 5:20 PM STRAIGHT LINE PRESS SETTER COMPREHENSIVE METABOLIC PANEL Stat 07/29/2025 5:20 PM STRAIGHT LINE PRESS SETTER CBC WITH DIFFERENTIAL Stat 07/29/2025 5:20 PM STRAIGHT LINE PRESS SETTER HM DIABETES EYE EXAM Routine 01/19/2025 2:05 PM CDT MICROALBUMIN/CREATIN INE RATIO, RANDOM UR Routine 01/14/2025 3:18 PM CDT Essential hypertension LIPID PANEL Routine 12/06/2023 9:37 AM CDT Type 2 diabetes mellitus with stage 3b chronic kidney disease, with long-term current use of insulin ([facility]) Mixed hyperlipidemia COLONOSCOPY REPORT 09/26/2023 8: 32 AM STRAIGHT LINE PRESS SETTER POC OCCULT BLOOD UP TO 3 CARDS Routine 07/15/2023 1:42 PM CDT Acute blood loss anemia Occult blood in stools XR DEXA BONE DENSITY AXIAL 1 OR MORE SITES Routine 10/23/2013 Disorder of bone and cartilage from Last 3 Months or Most Recently Relevant to Health Maintenance Results * COMPREHENSIVE METABOLIC PANEL (09/18/2025 11:09 AM STRAIGHT LINE PRESS SETTER) Only the most recent of4 resultswithin the time period is included. Blood Abstract Provider CHEMISTRY ORDERABLES Final Res ult * (ABNORMAL) FRUCTOSAMINE (08/16/2025 2:17 PM STRAIGHT LINE PRESS SETTER) [facility] FRUCTOSAMINE 288(H) 205 - 285 umol/L [facility], Comment: Test Performed at: [employer] [email or web address] [facility], [address] [place] [phone] Zahra Valencia MD,PhD,KARINA Blood 08/16/2025 2:17 PM STRAIGHT LINE PRESS SETTER 08/17/2025 2:47 AM STRAIGHT LINE PRESS SETTER Renea BARRIENTOS CHEMISTRY ORDERABLES Final Re sult [facility] [phone] [facility] Diagn[facility]/[email or web address] [facility], [address] [place] [phone] * (ABNORMAL) CBC WITH DIFFERENTIAL (08/16/2025 2:17 PM STRAIGHT LINE PRESS SETTER) Only the most recent of3 resultswithin the time period is included. Pathologist [facility] WBC 9.0 3.8 - 10.8 Thousand/u L [...] [facility] Comment: Test Performed at: [facility] [address] [place] [address] Maritza Dang MD Blood 08/16/2025 2:17 PM STRAIGHT LINE PRESS SETTER 08/17/2025 3:06 AM STRAIGHT LINE PRESS SETTER us Norman Caldera MD HEMATOLOGY ORDERABLES Final Resu lt [facility] [phone] [facility] [address] [place] [address] * (ABNORMAL) HEMOGLOBIN A1C (08/16/2025 2:17 PM STRAIGHT LINE PRESS SETTER) HEMOGLOBIN A1C 5.9(H) <5.7 % [facility] [...] ESTIMATED AVERAGE GLUCOSE (MG/DL) 123 mg/dL [facility] ESTIMATED AVERAGE GLUCOSE (MMOL/L) 6.8 mmol/L [facility] Comment: Test Performed at: [facility] [address] [facility] [place] [address] Maritza Dang MD Blood 08/16/2025 2:17 PM STRAIGHT LINE PRESS SETTER 08/17/2025 3:06 AM STRAIGHT LINE PRESS SETTER us Norman Caldera MD CHEMISTRY ORDERABLES Final Resul t [facility] [phone] [facility] [address] [facility] [place] [address] * US ABDOMEN LIMITED (08/12/2025 10:33 AM STRAIGHT LINE PRESS SETTER) Anatomical Region Laterality Modality Abdomen Ultrasound 08/12/2025 10:3 3 AM STRAIGHT LINE PRESS SETTER Impressions 08/12/2025 10:43 AM STRAIGHT LINE PRESS SETTER IMPRESSION: 1. Cirrhotic liver. 2. No sonographically evident hepatic masses. 3. Biliary sludge and cholelithiasis. Narrative 08/12/2025 10:43 AM STRAIGHT LINE PRESS SETTER Exam: Abdominal Ultrasound - Limited right upper quadrant with Doppler Reason for exam: Hepatic cirrhosis Comparison: CT scan dated 07/29/2025 FINDINGS: Liver: Coarsened hepatic echotexture with a nodular surface contour. No abnormal masses. No obvious hepatomegaly. Grossly patent portal and hepatic veins. Gallbladder: No gallbladder wall thickening or pericholecystic fluid. Biliary sludge and cholelithiasis. Negative sonographic Cross's sign was documented by the health education coordinator. Common bile duct: No dilation of the [...] sonographic Cross's sign was documented by the health education coordinator. Common bile duct: No dilation of the [...] Result * TELEMETRY REPORT (08/09/2025 12:18 PM STRAIGHT LINE PRESS SETTER) us Provider Scanning ECG ORDERABLES Final Result * (ABNORMAL) TROPONIN 2 HR, 5TH GEN (08/07/2025 11:35 AM STRAIGHT LINE PRESS SETTER) Only the most recent of2 resultswithin the time period is included. TROPONIN T, 2 HR 5TH GEN 26(H) <=10 ng/L 08/07/2025 12:08 PM STRAIGHT LINE PRESS SETTER [facility] Comment:Hemolysis can falsel y decrease Troponin quantitation. DELTA 2HR TROPONIN T -3 See Interp. 08/07/2025 12:08 PM STRAIGHT LINE PRESS SETTER [facility] Blood Venipuncture / Unknown 08/07/2025 11:35 AM STRAIGHT LINE PRESS SETTER 08/07/2025 11:45 AM STRAIGHT LINE PRESS SETTER Narrative [facility] - 08/07/2025 12:08 PM STRAIGHT LINE PRESS SETTER Troponin elevated. Delta not changing. us Jose Pittman DO CHEMISTRY ORDERABLES Final Resul t [facility] CLIA # [id number] [address] [place] [address] * (ABNORMAL) POC GLUCOSE (08/07/2025 11:12 AM STRAIGHT LINE PRESS SETTER) GLUCOSE POC 408(HH) 74 - 99 mg/dL 08/07/2025 11:12 AM [facility] [facility] SPECIM[facility] SOURCE, GLUCOSE POC Whole Blood 08/07/2025 11:12 AM [facility] COMMENT, GLU POC Alerted Nurse/LISA/DR 08/07/2025 11:12 AM [facility] Blood, whole 08/07/2025 11:1 2 AM STRAIGHT LINE PRESS SETTER 08/07/2025 11:20 AM STRAIGHT LINE PRESS SETTER us Jose Pittman DO POINT OF CARE TESTING Final Resu lt Performing Organization Address [facility]/ZIP Co de Phone Number [facility] CLIA # [id number] [address] [place] [phone] * (ABNORMAL) URINALYSIS WITH REFLEX MICROSCOPIC (08/07/2025 10:11 AM STRAIGHT LINE PRESS SETTER) Only the most recent of2 resultswithin the time period is included. COLOR UA Yellow Pale to Dark Yellow 08/07/2025 10:29 AM [facility] CLARITY UA Clear Clear 08/07/2025 10:29 AM [facility] SPECIFIC GRAVITY UA 1.010 1.003 - 1.035 08/07/2025 10:29 AM [facility] PH UA 6.5 5.0 - 8.0 08/07/2025 10:29 AM [facility] LEUKOCYTE ESTERASE UA Negative Negative 08/07/2025 10:29 AM [facility] NITRITE UA Negative Negative 08/07/2025 10:29 AM [facility] PROTEIN UA Negative Negative 08/07/2025 10:29 AM [facility] GLUCOSE UA 3+(A) Negative 08/07/2025 10:29 AM STRAIGHT LINE PRESS SETTER [facility] KETONES UA Negative Negative 08/07/2025 10:29 AM [facility] UROBILINOGEN UA 1.0 <2.0 mg/dL 10:29 AM [facility] BILIRUBIN UA Negative Negative 08/07/2025 10:29 AM [facility] BLOOD UA Negative Negative 08/07/2025 10:29 AM [facility] Urine URINE SPECIMEN OBTAINED BY CLEAN CATCH PROCEDURE / Unknown 08/07/2025 10:11 AM STRAIGHT LINE PRESS SETTER 08/07/2025 10:24 AM STRAIGHT LINE PRESS SETTER us Jose Pittman DO URINE ORDERABLES Final Result [facility] CLIA # [id number] [address] [place] [phone] * XR CHEST PA OR AP 1 VW (08/07/2025 10:03 AM STRAIGHT LINE PRESS SETTER) Only the most recent of2 resultswithin the time period is included. Anatomical Region Laterality Modality Chest Computed Radiogr aphy 08/07/2025 10:0 3 AM STRAIGHT LINE PRESS SETTER Impressions 08/07/2025 10:08 AM STRAIGHT LINE PRESS SETTER Impression: Mildly improved lung expansion. Exam is otherwise stable without significant change from prior study. Narrative 08/07/2025 10:08 AM STRAIGHT LINE PRESS SETTER Exam: XR CHEST PA OR AP 1 [...] * EXTRA TUBE (BLUE) (08/07/2025 9:50 AM STRAIGHT LINE PRESS SETTER) Blood Venipuncture / Unknown 08/07/2025 9:50 AM STRAIGHT LINE PRESS SETTER 08/07/2025 10:03 AM STRAIGHT LINE PRESS SETTER us Jose Pittman DO HEMATOLOGY ORDERABLES Final Resu lt Performing Organization Address [facility] Co de Phone Number [facility] CLIA # [id number] [address] [place] [phone] * (ABNORMAL) TROPONIN BASELINE, 5TH GEN (08/07/2025 9:50 AM STRAIGHT LINE PRESS SETTER) Only the most recent of2 resultswithin the time period is included. TROPONIN T, BASELINE 5TH GEN 29(H) <=10 ng/L 08/07/2025 10:26 AM [facility] Blood Venipuncture / Unknown 08/07/2025 9:50 AM STRAIGHT LINE PRESS SETTER 08/07/2025 10:03 AM STRAIGHT LINE PRESS SETTER Narrative [facility] - 08/07/2025 10:26 AM STRAIGHT LINE PRESS SETTER Troponin elevated. us Jose Pittman DO CHEMISTRY ORDERABLES Final Resul t Performing Organization Address [facility] Co de Phone Number [facility] CLIA # [id number] [address] [place] [phone] * (ABNORMAL) MANUAL DIFFERENTIAL (08/07/2025 9:50 AM STRAIGHT LINE PRESS SETTER) Only the most recent of2 resultswithin the time period is included. SEGMENTED NEUTROPHILS 59 45 - 70 % 08/07/2025 10:23 AM [facility] LYMPHOCYTES RELATIVE 26 20 - 45 % 08/07/2025 10:23 AM [facility] MONOCYTES RELATIVE 12(H) 2 - 8 % 08/07/2025 10:23 AM [facility] EOSINOPHILS RELATIVE 3 0 - 5 % 08/07/2025 10:23 AM [facility] NEUTROPHILS ABSOLUTE COUNT 7.14(H) 1.78 - 5.38 K/uL 08/07/2025 10:23 AM [facility] LYMPHOCYTES ABSOLUTE 3.15 1.20 - 4.00 K/uL 08/07/2025 10:23 AM [facility] MONOCYTES ABSOLUTE 1.45(H) 0.30 - 0.82 K/uL 08/07/2025 10:23 AM [facility] EOSINOPHILS ABSOLUTE 0.36 0.04 - 0.54 K/uL 08/07/2025 10:23 AM [facility] TOTAL CELLS COUNTED IN DIFF 100 08/07/2025 10:23 AM [facility] PLATELET EST. Adequate 08/07/2025 10:23 AM [facility] ANISOCYTOSIS 2+ /hpf 08/07/2025 10:23 AM [facility] MICROCYTES 2+ /hpf 08/07/2025 10:23 AM [facility] HYPOCHROMIA 1+ /hpf 08/07/2025 10:23 AM [facility] TARGET CELLS 1+ /hpf 08/07/2025 10:23 AM [facility] CLUMPED PLATELETS Present 025 10:23 AM [facility] Comment:Platelet clumping ob served on slide. Platelets appear adequate and normal. Blood Venipuncture / Unknown 08/07/2025 9:50 AM STRAIGHT LINE PRESS SETTER 08/07/2025 10:03 AM [facility] us Jose Pittman DO HEMATOLOGY ORDERABLES COM Final Result [facility] CLIA # [id number] [address] [place] [phone] * BRAIN NATRIURETIC PEPTIDE, BNP OR PROBNP (08/07/2025 9:50 AM STRAIGHT LINE PRESS SETTER) PROBNP, N TERMINAL 120 0 - 450 pg/mL 08/07/2025 10:26 AM [facility] Comment: INTERPRETIVE COMMENT based on diagnosis: Diagnostic [...] Blood Venipuncture / Unknown 08/07/2025 9:50 AM STRAIGHT LINE PRESS SETTER 08/07/2025 10:03 AM STRAIGHT LINE PRESS SETTER us Jose Pittman DO CHEMISTRY ORDERABLES Final Resul t [facility] # [id number] [address] [place] [address]1977 * EKG 12 lead (07/29/2025 6:43 PM STRAIGHT LINE PRESS SETTER) Narrative Mychal Perera MD - 07/29/2025 6:43 PM STRAIGHT LINE PRESS SETTER Mychal Perera MD 07/29/2025 6:43 PM EKG 12 lead Date/Time: 07/29/2025 6:43 PM Performed by: Mychal Perera MD Authorized by: Mychal Perera MD ECG interpreted by ED Physician in the absence of a powder line repairer: yes Rate: ECG rate assessment: age appropriate Rhythm: Rhythm Origin: sinus Rhythm morphology: narrow [place]: QRS axis: Normal Intervals: normal QRSTT: QRSTT changes: No us Mychal Perera MD ECG ORDERABLES Final Result * CT ABDOMEN PELVIS W CONTRAST (07/29/2025 6:19 PM STRAIGHT LINE PRESS SETTER) Anatomical Region Laterality Modality Abdomen Computed Tomogra phy 07/29/2025 6:54 PM STRAIGHT LINE PRESS SETTER Impressions 07/29/2025 6:54 PM STRAIGHT LINE PRESS SETTER IMPRESSION: 1. Mild diffuse wall-thickening of the [...] vein is obscured by metallic artifact. 7. Udia-wf-nhljvqoj diastases recti of the mid anterior abdominal wall. 8. Indwelling anterior abdominal wall surgical meshes. 9. Indwelling IVC filter. 10. Hysterectomy. 11. Postsurgical changes of an arthrodesis at L4-L5. 12. Postsurgical changes of the right hip arthroplasty. 13. Postsurgical changes of a TAVR. Narrative 07/29/2025 6:54 PM STRAIGHT LINE PRESS SETTER EXAM: CT ABDOMEN PELVIS W CONTRAST DIAGNOSIS/REASON [...] bilateral upper anterior abdominal wall. There is shix-ps-dgmdybht diastases recti of the mid anterior abdominal [...] bilateral upper anterior abdominal wall. There is pxhb-et-iefcvqho diastases recti of the mid anterior abdominal [...] vein is obscured by metallic artifact. 7. Fhje-cy-pwfcrqlw diastases recti of the mid anterior abdominal wall. 8. Indwelling anterior abdominal wall surgical meshes. 9. Indwelling IVC filter. 10. Hysterectomy. 11. Postsurgical changes of an arthrodesis at L4-L5. 12. Postsurgical changes of the right hip arthroplasty. 13. Postsurgical changes of a TAVR. us Mychal Perera MD CT ORDERABLES Final Result * LIPASE (07/29/2025 5:20 PM STRAIGHT LINE PRESS SETTER) LIPASE 18 13 - 60 U/L 07/29/2025 5:51 PM STRAIGHT LINE PRESS SETTER [facility] Blood BLOOD SPECIMEN / Unknown Collection / Unknown 07/29/2025 5:20 PM STRAIGHT LINE PRESS SETTER 07/29/2025 5:33 PM STRAIGHT LINE PRESS SETTER us Mychal Perera MD CHEMISTRY ORDERABLES Final Result [facility] CLIA # [id number] [address] [address] * HM DIABETES EYE EXAM (01/19/2025 2:05 PM CDT) us Abstract Provider HEALTH MAINTENANCE Edited Resu lt - Final * MICROALBUMIN/CREATININE RATIO, RANDOM UR (01/14/2025 3:18 PM CDT) CREATININE, URINE 98 20 - 275 mg/dL [facility] ALBUMIN, URINE 0.4 See Note: mg/dL [...] category. FASTING:UNKNOWN FASTING: UNKNOWN Test Performed at: [facility] [address] [address] [place] [address] Maritza Dang MD Urine URINE SPECIMEN OBTAINED BY CLEAN CATCH PROCEDURE / Unknown 01/14/2025 3:18 PM CDT 01/15/2025 3:06 AM CDT us Norman Caldera MD URINE ORDERABLES Final Result [facility] [phone] [facility] [address] [facility] [place] [address] * (ABNORMAL) LIPID PANEL (12/06/2023 9:37 AM [...] factors. LDL-C is now calculated using the Jewel calculation, which is a validated novel method providing better accuracy than the Friedewald equation in the estimation of LDL-C. Adeel SS et al. KAITLIN. 2013;310(19): 9506-3777 (http://education.[employer]/faq/SNT750) CHOL/HDL RATIO 2.9 <5.0 (calc) [facility] TOTAL NON-HDL CHOL(LDL+VLDL) 113 <130 mg/dL (calc) [facility] Comment: For patients with diabetes plus 1 major ASCVD risk factor, treating to a non-HDL-C goal of <100 mg/dL (LDL-C of <70 mg/dL) is considered a therapeutic option. Test Performed at: [facility] [address] [facility] [place] [address] Maritza Dang MD Blood 12/06/2023 9:37 AM CDT 12/07/2023 2:47 AM CDT Renea BARRIENTOS CHEMISTRY ORDERABLES Final Re sult [facility] [phone] [facility] [address] [place] [address] * COLONOSCOPY REPORT (09/26/2023 8:32 AM STRAIGHT LINE PRESS SETTER) Narrative Procedure Note Bren Vinson MD - 09/26/2023 8:32 AM CST [facility] GI Patient Name: Reny Bal Procedure Date: 09/26/2023 Date of : [...] bowel preparation was evaluated using the BBPS ([place] Bowel Preparation Scale) with scores of: Right [...] represents Heyde syndrome. 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 Replacement of the aortic valve has a significant chance of improving bleeding. Could perform capsule study but doubt this will waste management engineer. Bren Vinson, 09/26/2023 8:32:39 AM Number of Addenda: 0 Note Initiated On: 09/26/2023 6:48 AM Scope Withdrawal Time 0 hours 10 minutes 28 seconds Scope In: 7:41:24 AM Scope Out: 8:15:21 AM [address] [place], [place] Bren Vinson MD GI PROCEDURE ORDERABLES Final Result * (ABNORMAL) POC OCCULT BLOOD UP TO 3 CARDS (07/15/2023 1:42 PM CDT) OCCULT BLOOD 1 CARD POC Positive(A ) Negative [facility] OCCULT BLOOD 2 CARD POC Positive(A ) Negative [facility] OCCULT BLOOD 3 CARD POC Positive(A ) Negative [facility] INTERNAL KIT QC POC Pass Pass [facility] CARD LOT NUMBER POC [id number] [facility] CARD EXPIRATION DATE POC 05/24/2024 [facility] DEVELOPER LOT NUMBER POC [id number] [facility] DEVELOPER EXPIRATION DATE POC 11/21/2024 [facility] Stool STOOL SPECIMEN / Unknown 07/15/2023 1:42 PM CDT Emily Garcia INFLATED PAD BUFFER POINT OF CARE TESTING Fin al Result [facility] CLIA# [id number] [address] [place] [address] * XR DEXA BONE DENSITY AXIAL 1 OR MORE SITES (10/23/2013) Anatomical Region Laterality Modality Other Shanika J Lucas INFLATED PAD BUFFER DIAGNOSTIC IMAGING ORDERABLES Final Result from Last 3 Months or Most Recently Relevant to Health Maintenance Additional Health Concerns Active Problems Noted Date Diagnosed Date PALLAVI MYC HYPERTENSION CARE PLAN PROBLEM 4 Insurance [facility] PPO SNP MCR * Guarantor: RENY BAL Account Type Relation to Patient Date of Phone Billing Address Personal/Family [address] [facility] [place] [address] RX [facility] Medicare Part D RX [facility] PLANS (INTERNAL) [facility] Internal Plans Advance Directives For more information, please contact: [phone] Documents on File Type Date Recorded Patient Staff Development Coordinator Expl anation Advance Directive POA 03/01/2015 1:22 [...] 11:32 AM 08/05/2023 3:09 PM Care Teams Crew Mess Attendant Relationship Specialty Start Date End Date Norman Caldera MD [address] [place] [phone] PCP - General Family Practice 09/06/23
--- OUTSIDE RECORDS SUMMARY | 2025-09-20 14:46 | XMS_ITS | Encounter Summary ---
Author Organization [facility] Address [address] [place] [address] Care Team Providers Care Dental Equipment Repairer Name Role Phone Charles Delgadillo MD Primary Care Provider [phone] Encounter Details Date Type Department Care Team (Latest Contact Info) Description 12/10/2005 Outpatient [facility] [address] [place] [address] Miller Bustos DPCaryl NO ADDRESS ON FILE Plantar Nerve Lesion (Primary Dx); Other Bursitis Disorders Social History Tobacco Use Types Packs/Day Years Used Date Smoking Tobacco: Never Assessed Comments Unknown Sex and Gender Information Value Date Recorded Sex Assigned at Not on file Legal Sex Female 5:59 AM CHEMISTRY TEACHER Gender Identity Not on file Sexual Orientation Not on file documented as of this encounter Plan of Treatment Not on file documented as of this encounter Visit Diagnoses Diagnosis Plantar nerve lesion- Primary Lesion of plantar nerve Other bursitis disorders documented in this encounter Care Teams Dental Equipment Repairer Relationship Specialty Start Date End Date Charles Delgadillo MD [address] [place] [address] PCP - General Family Practice 09/05/10 documented as of this encounter
--- OUTSIDE RECORDS SUMMARY | 2025-09-20 14:46 | XMS_ITS | Encounter Summary ---
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) Social History Tobacco Use Types Packs/Day Years Used Date Smoking Tobacco: Never Assessed Comments Unknown Sex and Gender Information Value Date Recorded Sex Assigned at Not on file Legal Sex Female 5:59 AM .NET DEVELOPER Gender Identity Not on file Sexual Orientation Not on file documented as of this encounter Plan of Treatment Not on file documented as of this encounter Visit Diagnoses Diagnosis Lumbosacral spondylosis without myelopathy- Primary documented in this encounter Care Teams American Board Certified Orthotist Relationship Specialty Start Date End Date Charles Delgadillo MD [address] [place] [address] PCP - General Family Practice 09/05/10 documented as of this encounter
--- OUTSIDE RECORDS SUMMARY | 2025-09-20 14:46 | XMS_ITS | Encounter Summary ---
Author Organization [facility] Address [address] [place] [address] Care Team Providers Care Project Engineering Director Name Role Phone Charles Delgadillo MD Primary Care Provider [phone] Encounter Details Date Type Department Care Team (Latest Contact Info) Description 07/18/2004 Outpatient [facility] Medicine [place] [address] [facility] [address] [place] [address] Thomas Anne MD [address] [address] OSTEOARTHROS NOS-UNSPEC (Primary Dx); HYPERLIPIDEMIA NEC/NOS Social History Tobacco Use Types Packs/Day Years Used Date Smoking Tobacco: Never Assessed Comments Unknown Sex and Gender Information Value Date Recorded Sex Assigned at Not on file Legal Sex Female 5:59 AM MULTIMEDIA DESIGNER Gender Identity Not on file Sexual Orientation Not on file documented as of this encounter Plan of Treatment Not on file documented as of this encounter Visit Diagnoses Diagnosis Osteoarthrosis, unspecified whether generalized or localized, unspecified site- Primary Other and unspecified hyperlipidemia documented in this encounter Care Teams Project Engineering Director Relationship Specialty Start Date End Date Charles Delgadillo MD [address] [place] [phone] PCP - General Family Practice 09/05/10 documented as of this encounter
--- OUTSIDE RECORDS SUMMARY | 2025-09-20 14:46 | XMS_ITS | Encounter Summary ---
Author Organization [facility] Address [address] [place] [address] Care Team Providers Care Concrete Form Setter And Finisher Name Role Phone Charles Delgadillo MD Primary Care Provider [phone] Encounter Details Date Type Department Care Team (Latest Contact Info) Description 08/06/2006 Outpatient Historical [facility] [place] [address] [facility] [address] [place] [address] Nancy Muir FNP [address] [place] [phone] Disorders of Sacrum (Primary Dx) Social History Tobacco Use Types Packs/Day Years Used Date Smoking Tobacco: Never Assessed Comments Unknown Sex and Gender Information Value Date Recorded Sex Assigned at Not on file Legal Sex Female 5:59 AM WIND TURBINE ENGINEER Gender Identity Not on file Sexual Orientation Not on file documented as of this encounter Plan of Treatment Not on file documented as of this encounter Visit Diagnoses Diagnosis Disorders of sacrum- Primary documented in this encounter Care Teams Concrete Form Setter And Finisher Relationship Specialty Start Date End Date Charles Delgadillo MD [address] [place] [address] PCP - General Family Practice 09/05/10 documented as of this encounter
--- OUTSIDE RECORDS SUMMARY | 2025-09-20 14:46 | XMS_ITS | Encounter Summary ---
Author Organization [facility] Address [address] [place] [address] Care Team Providers Care Electric Cell Tender Name Role Phone Charles Delgadillo MD Primary Care Provider [phone] Reason for Referral * Outpatient Services (Routine) - Closed Specialty Diagnoses / Procedures Referred By Tisha troncoso Referred To Contact Diagnoses Other screening mammogram Procedures MAMMO DIGITAL SCREEN BILAT [employer] Shanika Zavala FNP [address] [place] [phone] Phone: tel: fax: Referral ID Status Reason Start Date Expiration Date Visits Re quested Visits Authorized [id number] Closed 07/13/2014 08/13/2015 1 1 Encounter Details Date Type Department Care Team (Latest Contact Info) Description 07/13/2014 Ancillary Orders [facility] [place] [address] [phone] Shanika Zavala FNP [address] [place] [phone] Other screening mammogram (Primary Dx) Social History Tobacco Use Types Packs/Day Years Used Date Smoking Tobacco: Never Smokeless Tobacco: Never Alcohol Use Standard Drinks/Week Comments No 0 (1 standard drink = 0.6 oz pur e alcohol) Comments No Sex and Gender Information Value Date Recorded Sex Assigned at Not on file Legal Sex Female 5:59 AM PROMOTIONS EXECUTIVE Gender Identity Not on file Sexual Orientation Not on file 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 us Shanika Zavala MID LEVEL CLINICIAN MAMMO ORDERABLES Final Result documented in this encounter Visit Diagnoses Diagnosis Other screening mammogram- Primary Other screening mammogram documented in this encounter Care Teams Electric Cell Tender Relationship Specialty Start Date End Date Charles Delgadillo MD [address] [place] [address] PCP - General Family Practice 09/05/10 documented as of this encounter
--- OUTSIDE RECORDS SUMMARY | 2025-09-20 14:46 | XMS_ITS | Encounter Summary ---
Author Organization [facility] Address [address] [place] [address] Care Team Providers Care Dinker Name Role Phone hCarles Delgadillo MD Primary Care Provider Encounter Details Date Type Department Care Team (Latest Contact Info) Description 10/26/2005 Outpatient [facility] Medicine [place] 104 [facility] 60 [place] [address] Thomas Anne MD [address] [phone] BRACHIAL NEURITIS NOS (Primary Dx); HYPERLIPIDEMIA NEC/NOS Social History Tobacco Use Types Packs/Day Years Used Date Smoking Tobacco: Never Assessed Comments Unknown Sex and Gender Information Value Date Recorded Sex Assigned at Not on file Legal Sex Female 5:59 AM SENIOR INVESTMENT ANALYST Gender Identity Not on file Sexual Orientation Not on file documented as of this encounter Plan of Treatment Not on file documented as of this encounter Visit Diagnoses Diagnosis Brachial neuritis or radiculitis NOS- Primary Brachial neuritis or radiculitis nos Other and unspecified hyperlipidemia documented in this encounter Care Teams Dinker Relationship Specialty Start Date End Date Charles Delgadillo MD [address] [place] [phone] PCP - General Family Practice 09/05/10 documented as of this encounter
--- OUTSIDE RECORDS SUMMARY | 2025-09-20 14:46 | XMS_ITS | Encounter Summary ---
Author Organization [facility] Address [address] [place] [address] Care Team Providers Care Production Supervisor Off Shift Name Role Phone Charles Delgadillo MD Primary Care Provider [phone] Encounter Details Date Type Department Care Team (Latest Contact Info) Description 01/21/2006 Outpatient [facility] Medicine [place] [address] [facility] 60 [place] [address] Thomas Anne MD [address] [phone] Other and Unspecified Hyperlipidemia (Primary Dx); Osteoarth NOS-Unspec Social History Tobacco Use Types Packs/Day Years Used Date Smoking Tobacco: Never Assessed Comments Unknown Sex and Gender Information Value Date Recorded Sex Assigned at Not on file Legal Sex Female 5:59 AM AIR HOLE DRILLER Gender Identity Not on file Sexual Orientation Not on file documented as of this encounter Plan of Treatment Not on file documented as of this encounter Visit Diagnoses Diagnosis Other and unspecified hyperlipidemia- Primary Osteoarthrosis, unspecified whether generalized or localized, unspecified site documented in this encounter Care Teams Production Supervisor Off Shift Relationship Specialty Start Date End Date Charles Delgadillo MD [address] [place] [phone] PCP - General Family Practice 09/05/10 documented as of this encounter
--- OUTSIDE RECORDS SUMMARY | 2025-09-20 14:46 | XMS_ITS | Encounter Summary ---
Author Organization [employer] [facility] Address [address] [place] [address] Care Team Providers Care In Store Marketer Name Role Phone Charles Delgadillo MD Primary Care Provider [phone] Encounter Details Date Type Department Care Team (Latest Contact Info) Description 06/19/2006 Outpatient Historical [facility] Pain Management Procedures [address] 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
--- OUTSIDE RECORDS SUMMARY | 2025-09-20 14:46 | XMS_ITS | Encounter Summary ---
Author Organization [employer] [facility] Address [address] [place] [address] Care Team Providers Care Public Relations Specialist Name Role Phone Charles Delgadillo MD Primary Care Provider [phone] Encounter Details Date Type Department Care Team (Latest Contact Info) Description 08/27/2006 Outpatient Historical [facility] Pain Management Procedures [address] [place] [address] Melvin Caro Thoracic or Lumbosacral Neuritis or Radiculitis, Unspecified (Primary Dx) Social History Tobacco Use Types Packs/Day Years Used Date Smoking Tobacco: Never Assessed Comments Unknown Sex and Gender Information Value Date Recorded Sex Assigned at Not on file Legal Sex Female 5:59 AM GRAPHIC DESIGN SPECIALIST Gender Identity Not on file Sexual Orientation Not on file documented as of this encounter Plan of Treatment Not on file documented as of this encounter Visit Diagnoses Diagnosis Thoracic or lumbosacral neuritis or radiculitis, unspecified- Primary documented in this encounter Care Teams Public Relations Specialist Relationship Specialty Start Date End Date Charles Delgadillo MD [address] [place] [address] PCP - General Family Practice 09/05/10 documented as of this encounter
--- OUTSIDE RECORDS SUMMARY | 2025-09-20 14:46 | XMS_ITS | Encounter Summary ---
Author Organization [facility] Address [address] [place] [address] Care Team Providers Care Wardrobe Specialist Name Role Phone Charles Delgadillo MD Primary Care Provider [phone] Encounter Details Date Type Department Care Team (Latest Contact Info) Description 05/04/2005 Outpatient Historical [facility] Family Medicine- [facility] [address] [place] [address] Lamar Pineda NP NO ADDRESS ON FILE LOWER LEG INJURY NOS (Primary Dx); CALCANEAL SPUR Social History Tobacco Use Types Packs/Day Years Used Date Smoking Tobacco: Never Assessed Comments Unknown Sex and Gender Information Value Date Recorded Sex Assigned at Not on file Legal Sex Female 5:59 AM ASSISTANT DIRECTOR OF ADMISSIONS Gender Identity Not on file Sexual Orientation Not on file documented as of this encounter Plan of Treatment Not on file documented as of this encounter Visit Diagnoses Diagnosis Injury, other and unspecified, knee, leg, ankle, and foot- Primary Calcaneal spur documented in this encounter Care Teams Wardrobe Specialist Relationship Specialty Start Date End Date Charles Delgadillo MD [address] [place] [address] PCP - General Family Practice 09/05/10 documented as of this encounter
--- OUTSIDE RECORDS SUMMARY | 2025-09-20 14:46 | XMS_ITS | Encounter Summary ---
Author Organization [facility] Address [address] [place] [address] Care Team Providers Care Sailing Officer Name Role Phone Charles Delgadillo MD Primary Care Provider [phone] Encounter Details Date Type Department Care Team (Latest Contact Info) Description 08/09/2006 Outpatient Historical [facility] [address] [place] [phone] Melvin Caro Disorders of Sacrum (Primary Dx); Thoracic or Lumbosacral Neuritis or Radiculitis, Unspecified Social History Tobacco Use Types Packs/Day Years Used Date Smoking Tobacco: Never Assessed Comments Unknown Sex and Gender Information Value Date Recorded Sex Assigned at Not on file Legal Sex Female 5:59 AM BLUEPRINT READER Gender Identity Not on file Sexual Orientation Not on file documented as of this encounter Plan of Treatment Not on file documented as of this encounter Visit Diagnoses Diagnosis Disorders of sacrum- Primary Thoracic or lumbosacral neuritis or radiculitis, unspecified documented in this encounter Care Teams Sailing Officer Relationship Specialty Start Date End Date Charles Delgadillo MD [address] [place] [address] PCP - General Family Practice 09/05/10 documented as of this encounter
--- OUTSIDE RECORDS SUMMARY | 2025-09-20 14:46 | XMS_ITS | Encounter Summary ---
Author Organization [facility] Address [address] [place] [address] Care Team Providers Care Adapted Physical Education Specialist Name Role Phone Charles Delgadillo MD Primary Care Provider [phone] Encounter Details Date Type Department Care Team (Late st Contact Info) Description 04/30/2006 Outpatient Historical [facility] Neurology [address], [address] [place] [address] Tristen Aragon MD [address] [place] [address] Skin Sensation Disturb (Primary Dx); Lumbago Social History Tobacco Use Types Packs/Day Years Used Date Smoking Tobacco: Never Assessed Comments Unknown Sex and Gender Information Value Date Recorded Sex Assigned at Not on file Legal Sex Female 5:59 AM EMERGENCY MANAGEMENT SPECIALIST Gender Identity Not on file Sexual Orientation Not on file documented as of this encounter Plan of Treatment Not on file documented as of this encounter Visit Diagnoses Diagnosis Skin sensation disturb- Primary Disturbance of skin sensation Lumbago documented in this encounter Care Teams Adapted Physical Education Specialist Relationship Specialty Start Date End Date Charles Delgadillo MD [address], [place] [address] PCP - General Family Practice 09/05/10 documented as of this encounter
--- OUTSIDE RECORDS SUMMARY | 2025-09-20 14:46 | XMS_ITS | Encounter Summary ---
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 [facility] 1138 Dictated By: Jaime Fernandez Electronically Signed By: Jaime Fernandez Electronically Signed By: Olu Chiu M.D. Date Signed: 01/09/06 [facility] Procedure Note Provider, Historical - 08/10/2009 [...] comfortable condition having tolerated the procedure well. [facility] 1138 Dictated By: Jaime Fernandez Electronically Signed By: Jaime Fernandez Electronically Signed By: Olu Chiu M.D. Date Signed: 01/09/06 [facility] us Tristen Aragon MD CT ORDERABLES Final Resul t Performing Organization Address City/State/[facility] Co de Phone Number INTERFACE SYSTEM [...] Olu Chiu M.D. Electronically Signed By: Olu Cihu M.D. Date Signed: 01/09/06 Tristen Aragon MD DIAGNOSTIC IMAGING ORDERABL ES Final Result documented in this encounter Visit Diagnoses Diagnosis Other and unspecified disc disorder of thoracic region- Primary documented in this encounter Care Teams Social Media Project Manager Relationship Specialty Start Date End Date Charles Delgadillo MD [address] [place] [address] PCP - General Family Practice 09/05/10 documented as of this encounter
--- OUTSIDE RECORDS SUMMARY | 2025-09-20 14:46 | XMS_ITS | Encounter Summary ---
Author Organization [facility] Address [address] [place] [address] Care Team Providers Care Rope Maker Name Role Phone Charles Delgadillo MD Primary Care Provider [phone] Encounter Details Date Type Department Care Team (Latest Contact Info) Description 05/22/2004 Outpatient [facility] Podiatry-[facility] [address] [place] [address] Miller Bustos DPM NO ADDRESS ON FILE LOWER LEG INJURY NOS (Primary Dx); MONONEURITIS LEG NOS; Pain in limb; TARSAL TUNNEL SYNDROME Social History Tobacco Use Types Packs/Day Years Used Date Smoking Tobacco: Never Assessed Comments Unknown Sex and Gender Information Value Date Recorded Sex Assigned at Not on file Legal Sex Female 5:59 AM TELEPHONE INSTRUMENT SUPERVISOR Gender Identity Not on file Sexual Orientation Not on file documented as of this encounter Plan of Treatment Not on file documented as of this encounter Visit Diagnoses Diagnosis Injury, other and unspecified, knee, leg, ankle, and foot- Primary Mononeuritis of lower limb, unspecified Pain in limb Pain in soft tissues of limb Tarsal tunnel syndrome documented in this encounter Care Teams Rope Maker Relationship Specialty Start Date End Date Charles Delgadillo MD [address] [place] [address] PCP - General Family Practice 09/05/10 documented as of this encounter
--- OUTSIDE RECORDS SUMMARY | 2025-09-20 14:46 | XMS_ITS | Encounter Summary ---
Author Organization [facility] Address [address] [place] [address] Care Team Providers Care Social Worker Psychiatric Name Role Phone Charles Delgadillo MD Primary Care Provider [phone] Encounter Details Date Type Department Care Team (Latest Contact Info) Description 12/12/2005 Outpatient Historical [facility] Imaging Services [facility] 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
--- OUTSIDE RECORDS SUMMARY | 2025-09-20 14:46 | XMS_ITS | Encounter Summary ---
Author Organization [facility] Address [address] [place] [address] Care Team Providers Care Restoration Ecologist Name Role Phone Charles Delgadillo MD Primary Care Provider [phone] Encounter Details Date Type Department Care Team (Latest Contact Info) Description 08/08/2005 Outpatient [facility] [address] [place] [address] Miller Bustos DPM NO ADDRESS ON FILE MONONEURITIS LEG NOS (Primary Dx); TARSAL TUNNEL SYNDROME; TENOSYNOVITIS FOOT/ANKLE; LOWER LEG INJURY NOS Social History Tobacco Use Types Packs/Day Years Used Date Smoking Tobacco: Never Assessed Comments Unknown Sex and Gender Information Value Date Recorded Sex Assigned at Not on file Legal Sex Female 5:59 AM CLIENT SERVICE PROFESSIONAL Gender Identity Not on file Sexual Orientation Not on file documented as of this encounter Plan of Treatment Not on file documented as of this encounter Visit Diagnoses Diagnosis Mononeuritis of lower limb, unspecified- Primary Tarsal tunnel syndrome Tenosynovitis of foot and ankle Injury, other and unspecified, knee, leg, ankle, and foot documented in this encounter Care Teams Restoration Ecologist Relationship Specialty Start Date End Date Charles Delgadillo MD [address] [address] PCP - General Family Practice 09/05/10 documented as of this encounter
--- OUTSIDE RECORDS SUMMARY | 2025-09-20 14:46 | XMS_ITS | Encounter Summary ---
Author Organization [employer] [facility] Address [address] [place] [address] Care Team Providers Care Sewer Line Photo Inspector Name Role Phone Charles Delgadillo MD Primary Care Provider [phone] Encounter Details Date Type Department Care Team (Latest Contact Info) Description 08/09/2006 Outpatient Historical [facility] Pain Management Procedures [address] [place] [address] Melvin Caro Thoracic or Lumbosacral Neuritis or Radiculitis, Unspecified (Primary Dx) Social History Tobacco Use Types Packs/Day Years Used Date Smoking Tobacco: Never Assessed Comments Unknown Sex and Gender Information Value Date Recorded Sex Assigned at Not on file Legal Sex Female 5:59 AM SERVICE STATION CASHIER Gender Identity Not on file Sexual Orientation Not on file documented as of this encounter Plan of Treatment Not on file documented as of this encounter Visit Diagnoses Diagnosis Thoracic or lumbosacral neuritis or radiculitis, unspecified- Primary documented in this encounter Care Teams Sewer Line Photo Inspector Relationship Specialty Start Date End Date Charles Delgadillo MD [address] [place] [address] PCP - General Family Practice 09/05/10 documented as of this encounter
--- OUTSIDE RECORDS SUMMARY | 2025-09-20 14:46 | XMS_ITS | Encounter Summary ---
Author Organization [facility] Address [address] [place] [address] Care Team Providers Care Continuous Linter Drier Operator Name Role Phone Charles Delgadillo MD Primary Care Provider [phone] Encounter Details Date Type Department Care Team (Late st Contact Info) Description 05/08/2006 Outpatient Historical [facility] Imaging Services [place] [id number] [place] [phone] Tristen Aragon MD [address] [place] [address] Other Allied Disorders of Spine (Primary Dx) Social History Tobacco Use Types Packs/Day Years Used Date Smoking Tobacco: Never Assessed Comments Unknown Sex and Gender Information Value Date Recorded Sex Assigned at Not on file Legal Sex Female 5:59 AM BUSINESS AREA MANAGER Gender Identity Not on file Sexual Orientation Not on file documented as of this encounter Plan of Treatment Not on file documented as of this encounter Visit Diagnoses Diagnosis Other allied disorders of spine- Primary documented in this encounter Care Teams Continuous Linter Drier Operator Relationship Specialty Start Date End Date Charles Delgadillo MD [address], [place] [address] PCP - General Family Practice 09/05/10 documented as of this encounter
--- OUTSIDE RECORDS SUMMARY | 2025-09-20 14:46 | XMS_ITS | Encounter Summary ---
Author Organization [facility] Address [address] [place] [address] Care Team Providers Care Scrap Stripper Hand Name Role Phone Charles Delgadillo MD Primary Care Provider [phone] Encounter Details Date Type Department Care Team (Latest Contact Info) Description 03/11/2006 Outpatient [facility] Medicine [place] [address] [phone] Lamar Pineda NP NO ADDRESS ON FILE Unspecified Sleep Apnea (Primary Dx); Unspecified Asthma; Unspecified Chronic Bronchitis (CMS/HCC) Social History Tobacco Use Types Packs/Day Years Used Date Smoking Tobacco: Never Assessed Comments Unknown Sex and Gender Information Value Date Recorded Sex Assigned at Not on file Legal Sex Female 5:59 AM CUSTOMER CARE CONSULTANT Gender Identity Not on file Sexual Orientation Not on file documented as of this encounter Plan of Treatment Not on file documented as of this encounter Visit Diagnoses Diagnosis Unspecified sleep apnea- Primary Unspecified asthma(493.90) Unspecified asthma Unspecified chronic bronchitis (CMS/HCC) Unspecified chronic bronchitis documented in this encounter Care Teams Scrap Stripper Hand Relationship Specialty Start Date End Date Charles Delgadillo MD [address] [place] [address] PCP - General Family Practice 09/05/10 documented as of this encounter
--- OUTSIDE RECORDS SUMMARY | 2025-09-20 14:46 | XMS_ITS | Encounter Summary ---
Author Organization [facility] Address [address] [place] [address] Care Team Providers Care Visual Education Director Name Role Phone Charles Delgadillo MD Primary Care Provider [phone] Encounter Details Date Type Department Care Team (Latest Contact Info) Description 10/16/2006 Outpatient [facility] Podiatry-[facility] [address] [place] [address] Miller Bustos, DPM NO ADDRESS ON FILE Tenosynovitis of Foot and Ankle (Primary Dx); Dermatophytosis of Nail; Plantar Fibromatosis Social History Tobacco Use Types Packs/Day Years Used Date Smoking Tobacco: Never Assessed Comments Unknown Sex and Gender Information Value Date Recorded Sex Assigned at Not on file Legal Sex Female 5:59 AM ABSTRACTOR Gender Identity Not on file Sexual Orientation Not on file documented as of this encounter Plan of Treatment Not on file documented as of this encounter Visit Diagnoses Diagnosis Tenosynovitis of foot and ankle- Primary Dermatophytosis of nail Plantar fibromatosis Plantar fascial fibromatosis documented in this encounter Care Teams Visual Education Director Relationship Specialty Start Date End Date Charles Delgadillo MD [address] [place] [address] PCP - General Family Practice 09/05/10 documented as of this encounter
--- OUTSIDE RECORDS SUMMARY | 2025-09-20 14:46 | XMS_ITS | Encounter Summary ---
Author Organization [facility] Address [address] [place] [address] Care Team Providers Care Guest Experience Representative Name Role Phone Charles Delgadillo MD Primary Care Provider [phone] Encounter Details Date Type Department Care Team (Latest Contact Info) Description 09/18/2006 Outpatient [facility] Podiatry-[facility] [address] [place] [address] Miller Bustos DPM NO ADDRESS ON FILE Plantar Fibromatosis (Primary Dx); Achilles Bursitis or Tendinitis; Difficulty in Walking Social History Tobacco Use Types Packs/Day Years Used Date Smoking Tobacco: Never Assessed Comments Unknown Sex and Gender Information Value Date Recorded Sex Assigned at Not on file Legal Sex Female 5:59 AM CANOE INSPECTOR FINAL Gender Identity Not on file Sexual Orientation Not on file documented as of this encounter Plan of Treatment Not on file documented as of this encounter Visit Diagnoses Diagnosis Plantar fibromatosis- Primary Plantar fascial fibromatosis Achilles bursitis or tendinitis Difficulty in walking(719.7) Difficulty in walking documented in this encounter Care Teams Guest Experience Representative Relationship Specialty Start Date End Date Charels Delgadillo MD [address] [place] [address] PCP - General Family Practice 09/05/10 documented as of this encounter
--- OUTSIDE RECORDS SUMMARY | 2025-09-20 14:46 | XMS_ITS | Encounter Summary ---
Author Organization [facility] Address [address] [place] [address] Care Team Providers Care Coating Operator Name Role Phone Charles Delgadillo MD Primary Care Provider [phone] Encounter Details Date Type Department Care Team (Latest Contact Info) Description 06/13/2006 Outpatient Historical [facility] Medicine [address] [phone] Roz Capellan MD [address] [place] [phone] Unspecified Arthropathy, Site Unspecified (Primary Dx); Unspecified Endocrine Disorder; Other Dyspnea and Respiratory Abnormality; Encounter for Long-Term (Current) Use of Other Medications Social History Tobacco Use Types Packs/Day Years Used Date Smoking Tobacco: Never Assessed Comments Unknown Sex and Gender Information Value Date Recorded Sex Assigned at Not on file Legal Sex Female 5:59 AM COPY ROOM TECHNICIAN Gender Identity Not on file Sexual Orientation Not on file documented as of this encounter Plan of Treatment Not on file documented as of this encounter Visit Diagnoses Diagnosis Arthropathy, unspecified, site unspecified- Primary Unspecified endocrine disorder Other dyspnea and respiratory abnormality Encounter for long-term (current) use of other medications documented in this encounter Care Teams Coating Operator Relationship Specialty Start Date End Date Charles Delgadillo MD [address] [place] [address] PCP - General Family Practice 09/05/10 documented as of this encounter
--- OUTSIDE RECORDS SUMMARY | 2025-09-20 14:46 | XMS_ITS | Encounter Summary ---
Author Organization [facility] Address [address] [place] [address] Care Team Providers Care Waiter/Waitress Tavern Name Role Phone Charles Delgadillo MD Primary Care Provider [phone] Encounter Details Date Type Department Care Team (Latest Contact Info) Description 05/13/2006 Outpatient Historical [facility] Medicine [place] [address] [facility] [address] [place] [phone] Lamar Pineda NP NO ADDRESS ON FILE Other and Unspecified Hyperlipidemia (Primary Dx); Unspecified Disease of Spinal Cord (CMS/HCC) Social History Tobacco Use Types Packs/Day Years Used Date Smoking Tobacco: Never Assessed Comments Unknown Sex and Gender Information Value Date Recorded Sex Assigned at Not on file Legal Sex Female 5:59 AM ENVIRONMENTAL SCIENTIST Gender Identity Not on file Sexual Orientation Not on file documented as of this encounter Plan of Treatment Not on file documented as of this encounter Visit Diagnoses Diagnosis Other and unspecified hyperlipidemia- Primary Unspecified disease of spinal cord (CMS/HCC) Unspecified disease of spinal cord documented in this encounter Care Teams Waiter/Waitress Tavern Relationship Specialty Start Date End Date Charles Delgadillo MD [address] [place] [address] PCP - General Family Practice 09/05/10 documented as of this encounter
--- OUTSIDE RECORDS SUMMARY | 2025-09-20 14:46 | XMS_ITS | Encounter Summary ---
Author Organization [employer] [facility] Address [address] [place] [address] Care Team Providers Care Associate Material Handler Name Role Phone Charles Delgadillo MD Primary Care Provider [phone] Encounter Details Date Type Department Care Team (Latest Contact Info) Description 06/05/[address] [facility] Pain Management Procedures [address] [place] [address] Melvin Caro Thoracic or Lumbosacral Neuritis or Radiculitis, Unspecified (Primary Dx) Social History Tobacco Use Types Packs/Day Years Used Date Smoking Tobacco: Never Assessed Comments Unknown Sex and Gender Information Value Date Recorded Sex Assigned at Not on file Legal Sex Female 5:59 AM FLUE CLEANER Gender Identity Not on file Sexual Orientation Not on file documented as of this encounter Plan of Treatment Not on file documented as of this encounter Visit Diagnoses Diagnosis Thoracic or lumbosacral neuritis or radiculitis, unspecified- Primary documented in this encounter Care Teams Associate Material Handler Relationship Specialty Start Date End Date Charles Delgadillo MD [address] [place] [address] PCP - General Family Practice 09/05/10 documented as of this encounter
--- OUTSIDE RECORDS SUMMARY | 2025-09-20 14:46 | XMS_ITS | Encounter Summary ---
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) Social History Tobacco Use Types Packs/Day Years Used Date Smoking Tobacco: Never Assessed Comments Unknown Sex and Gender Information Value Date Recorded Sex Assigned at Not on file Legal Sex Female 5:59 AM LEDGER CLERK Gender Identity Not on file Sexual Orientation Not on file documented as of this encounter Plan of Treatment Not on file documented as of this encounter Visit Diagnoses Diagnosis Unspecified disease of spinal cord (CMS/HCC)- Primary Unspecified disease of spinal cord documented in this encounter Care Teams Flag Football Coach Relationship Specialty Start Date End Date Charles Delgadillo MD [address] [place] [phone] PCP - General Family Practice 09/05/10 documented as of this encounter
--- OUTSIDE RECORDS SUMMARY | 2025-09-20 14:46 | XMS_ITS | Encounter Summary ---
Author Organization [facility] Address [address] [place] [address] Care Team Providers Care Student Name Role Phone Charles Delgadillo MD Primary Care Provider [phone] Encounter Details Date Type Department Care Team (Latest Contact Info) Description 12/14/2005 Outpatient [facility] Medicine [place] [address] [facility] [address] [place] [address] Thomas Anne MD [address] [address] Other and Unspecified Hyperlipidemia (Primary Dx); Peptic Ulcer, Site NOS; Unspecified Disorder of Kidney and Ureter Social History Tobacco Use Types Packs/Day Years Used Date Smoking Tobacco: Never Assessed Comments Unknown Sex and Gender Information Value Date Recorded Sex Assigned at Not on file Legal Sex Female 5:59 AM FRONT END APPLICATION DEVELOPER Gender Identity Not on file Sexual Orientation Not on file documented as of this encounter Plan of Treatment Not on file documented as of this encounter Visit Diagnoses Diagnosis Other and unspecified hyperlipidemia- Primary Peptic ulcer, unspecified site, unspecified as acute or chronic, without mention of hemorrhage, perforation, or obstruction Unspecified disorder of kidney and ureter documented in this encounter Care Teams Student Relationship Specialty Start Date End Date Charles Delgadillo MD [address] [address] PCP - General Family Practice 09/05/10 documented as of this encounter
--- OUTSIDE RECORDS SUMMARY | 2025-09-20 14:46 | XMS_ITS | Encounter Summary ---
Author Organization [facility] Address [address] [place] [address] Care Team Providers Care Coroner/Medical Examiner Name Role Phone Charles Delgadillo MD Primary Care Provider [phone] Encounter Details Date Type Department Care Team (Latest Contact Info) Description 04/08/2006 Outpatient [facility] [address] [phone] Lamar Pineda NP NO ADDRESS ON FILE Spasm of Muscle (Primary Dx); Unspecified Myalgia and Myositis; Unspecified Asthma; Other Sleep Disturbances Social History Tobacco Use Types Packs/Day Years Used Date Smoking Tobacco: Never Assessed Comments Unknown Sex and Gender Information Value Date Recorded Sex Assigned at Not on file Legal Sex Female 5:59 AM HAND ORNAMENT MAKER Gender Identity Not on file Sexual Orientation Not on file documented as of this encounter Plan of Treatment Not on file documented as of this encounter Visit Diagnoses Diagnosis Spasm of muscle- Primary Myalgia and myositis, unspecified Mylagia and myositis, unspecified Unspecified asthma(493.90) Unspecified asthma Other sleep disturbances documented in this encounter Care Teams Coroner/Medical Examiner Relationship Specialty Start Date End Date Charles Delgadillo MD [address] [place] [address] PCP - General Family Practice 09/05/10 documented as of this encounter
--- OUTSIDE RECORDS SUMMARY | 2025-09-20 14:46 | XMS_ITS | Encounter Summary ---
Author Organization [facility] Address [address] [place] [address] Care Team Providers Care Agent Broker Name Role Phone Charles Delgadillo MD Primary Care Provider [phone] Encounter Details Date Type Department Care Team (Latest Contact Info) Description 08/20/2005 Outpatient [facility] Family Medicine [place] [address] [facility] [address] [place] [phone] Thomas Anne MD [address] [address] ROUTINE CASTING AND PASTING SUPERVISOR EXAMINATION (Primary Dx); SCREENING MAL NEOP-BREAST NOS Social History Tobacco Use Types Packs/Day Years Used Date Smoking Tobacco: Never Assessed Comments Unknown Sex and Gender Information Value Date Recorded Sex Assigned at Not on file Legal Sex Female 5:59 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
--- OUTSIDE RECORDS SUMMARY | 2025-09-20 14:46 | XMS_ITS | Encounter Summary ---
Author Organization [facility] Address [address] [place] [address] Care Team Providers Care Recruiting And Selection Consultant Name Role Phone Charles Delgadillo MD Primary Care Provider [phone] Encounter Details Date Type Department Care Team (Latest Contact Info) Description 08/06/2006 Outpatient Historical [facility] [address] [place] [address] Nancy Muir FNP [address] [facility] [address] [facility] [address] [place] [address] Lumbago (Primary Dx); Enthesopathy of Hip Social History Tobacco Use Types Packs/Day Years Used Date Smoking Tobacco: Never Assessed Comments Unknown Sex and Gender Information Value Date Recorded Sex Assigned at Not on file Legal Sex Female 5:59 AM LEARNING AND DEVELOPMENT INTERN Gender Identity Not on file Sexual Orientation Not on file documented as of this encounter Plan of Treatment Not on file documented as of this encounter Visit Diagnoses Diagnosis Lumbago- Primary Enthesopathy of hip Enthesopathy of hip region documented in this encounter Care Teams Recruiting And Selection Consultant Relationship Specialty Start Date End Date Charles Delgadillo MD [address] [place] [phone] PCP - General Family Practice 09/05/10 documented as of this encounter
--- OUTSIDE RECORDS SUMMARY | 2025-09-20 14:46 | XMS_ITS | Encounter Summary ---
Author Organization [facility] Address [address] [place] [address] Care Team Providers Care Pattern Changer Name Role Phone Charles Delgadillo MD Primary Care Provider [phone] Encounter Details Date Type Department Care Team (Latest Contact Info) Description 09/11/2005 Outpatient [facility] Podiatry[facility] [address] [place] [address] Miller Bustos DPM NO ADDRESS ON FILE TARSAL TUNNEL SYNDROME (Primary Dx); TENOSYNOVITIS FOOT/ANKLE Social History Tobacco Use Types Packs/Day Years Used Date Smoking Tobacco: Never Assessed Comments Unknown Sex and Gender Information Value Date Recorded Sex Assigned at Not on file Legal Sex Female 5:59 AM SENIOR EDUCATION SPECIALIST Gender Identity Not on file Sexual Orientation Not on file documented as of this encounter Plan of Treatment Not on file documented as of this encounter Visit Diagnoses Diagnosis Tarsal tunnel syndrome- Primary Tenosynovitis of foot and ankle documented in this encounter Care Teams Pattern Changer Relationship Specialty Start Date End Date Charles Delgadillo MD [address] [place] [address] PCP - General Family Practice 09/05/10 documented as of this encounter
--- OUTSIDE RECORDS SUMMARY | 2025-09-20 14:46 | XMS_ITS | Encounter Summary ---
Author Organization [facility] Address [address] [place] [address] Care Team Providers Care Canal Lock Tender Chief Operator Name Role Phone Charles Delgadillo MD Primary Care Provider [phone] Encounter Details Date Type Department Care Team (Latest Contact Info) Description 05/28/2006 Outpatient [facility] [address] [place] [address] [place] [address] [phone] Melvin Caro Thoracic or Lumbosacral Neuritis or [...] Primary documented in this encounter Care Teams Canal Lock Tender Chief Operator Relationship Specialty Start Date End Date Charles Delgadillo MD [address] [place] [address] PCP - General Family Practice 09/05/10 documented as of this encounter
--- OUTSIDE RECORDS SUMMARY | 2025-09-20 14:46 | XMS_ITS | Encounter Summary ---
Author Organization [facility] Address [address] [place] [address] Care Team Providers Care Plant Pathologist Name Role Phone Charles Delgadillo MD Primary Care Provider [phone] Encounter Details Date Type Department Care Team (Late st Contact Info) Description 05/08/2006 Outpatient Historical [facility] Imaging Services [place] [address] 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 Mild degenerativedisc disease at L4-L5. - Dictated By: Seth Pepe M.D. Electronically Signed By: Seth Pepe M.D. Date Signed: 05/08/06 Tristen Aragon MD MR ORDERABLES Final Resul t documented in this encounter Visit Diagnoses Not on filedocumented in this encounter Care Teams Plant Pathologist Relationship Specialty Start Date End Date Charles Delgadillo MD [address] [place] [address] PCP - General Family Practice 09/05/10 documented as of this encounter
--- OUTSIDE RECORDS SUMMARY | 2025-09-20 14:46 | XMS_ITS | Encounter Summary ---
Author Organization [facility] Address [address] [place] [address] Care Team Providers Care Button Sewer Hand Name Role Phone Charles Delgadillo MD Primary Care Provider Encounter Details Date Type Department Care Team (Latest Contact Info) Description 08/19/2006 Outpatient Historical [facility] Medicine [place] [address] [phone] Roz Capellan MD [address] [place] [phone] Plantar Fibromatosis (Primary Dx); Insomnia, Unspecified; Unspecified Myalgia and Myositis Social History Tobacco Use Types Packs/Day Years Used Date Smoking Tobacco: Never Assessed Comments Unknown Sex and Gender Information Value Date Recorded Sex Assigned at Not on file Legal Sex Female 5:59 AM HEEL SHAPER Gender Identity Not on file Sexual Orientation Not on file documented as of this encounter Plan of Treatment Not on file documented as of this encounter Visit Diagnoses Diagnosis Plantar fibromatosis- Primary Plantar fascial fibromatosis Insomnia, unspecified Myalgia and myositis, unspecified Mylagia and myositis, unspecified documented in this encounter Care Teams Button Sewer Hand Relationship Specialty Start Date End Date Charles Delgadillo MD [address] [phone] PCP - General Family Practice 09/05/10 documented as of this encounter
--- OUTSIDE RECORDS SUMMARY | 2025-09-20 14:46 | XMS_ITS | Encounter Summary ---
Author Organization [facility] Address [address] [place] [address] Care Team Providers Care Manager Financial Reporting Name Role Phone Charles Delgadillo MD Primary Care Provider [phone] Encounter Details Date Type Department Care Team (Latest Contact Info) Description 06/19/2004 Outpatient [facility] Podiatry[facility] [place] [address] [place] [address] Miller Bustos DPM NO ADDRESS ON FILE TENOSYNOVITIS FOOT/ANKLE (Primary Dx); ENTHESOPATHY, SITE NOS; Plantar fibromatosis; SPASM OF MUSCLE Social History Tobacco Use Types Packs/Day Years Used Date Smoking Tobacco: Never Assessed Comments Unknown Sex and Gender Information Value Date Recorded Sex Assigned at Not on file Legal Sex Female 5:59 AM 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
--- OUTSIDE RECORDS SUMMARY | 2025-09-20 14:47 | XMS_ITS | Encounter Summary ---
Author Organization [facility] Address [address] [place] [address] Care Team Providers Care Cuff Setter Lockstitch Name Role Phone Charles Delgadillo MD Primary Care Provider [phone] Encounter Details Date Type Department Care Team (Latest Contact Info) Description 11/28/2006 Outpatient [facility] [address] [place] [address] [place] [address] [phone] Melvin Caro Thoracic or Lumbosacral Neuritis or Radiculitis, Unspecified (Primary Dx) Social History Tobacco Use Types Packs/Day Years Used Date Smoking Tobacco: Never Assessed Comments Unknown Sex and Gender Information Value Date Recorded Sex Assigned at Not on file Legal Sex Female 5:59 AM RN LABOR DELIVERY Gender Identity Not on file Sexual Orientation Not on file documented as of this encounter Plan of Treatment Not on file documented as of this encounter Visit Diagnoses Diagnosis Thoracic or lumbosacral neuritis or radiculitis, unspecified- Primary documented in this encounter Care Teams Cuff Setter Lockstitch Relationship Specialty Start Date End Date Charles Delgadillo MD [address] [place] [address] PCP - General Family Practice 09/05/10 documented as of this encounter
--- OUTSIDE RECORDS SUMMARY | 2025-09-20 14:47 | XMS_ITS | Clinical Summary ---
Author Organization [facility] Address [address] [place] [address] Care Team Providers Care Semiconductor Lab Technician Name Role Phone Charles Delgadillo MD Primary Care Provider [phone] Allergies Active Allergy Reactions Criticality Noted Date [...] unspecified whether stage 3a or 3b CKD (CMS/[facility]) For bid testing daily and prn symptoms [...] unspecified whether stage 3a or 3b CKD (CMS/[facility]) For bid glucose checks and prn. 200 Each 3 02/04/20 21 Active fluticasone propionate (FLONASE) 50 mcg/spray [place], Suspension nasal inhaler Use 2 spray(s) in [...] 09 Overview (12/19/2008): See colonoscopy report from [facility] this month Fibromyalgia 09/19/2008 Mixed hyperlipidemia [...] 09/19/2008 Immunizations Immunization Administration Dates Next Due ([employer])(12 YR UP) COVID-19 VACCINE - EMERGENCY USE AUTHORIZATION, MRNA, [id number](PF) 30 MCG/0.3 ML IM SUSP 02/01/2021,01/11/2021 (PNEUMOVAX [...] Steven murdered Other Brother 2 Paul guillian Callands Heart Disease Daughter 1 Amirah Other Daughter [...] often do you attend chur ch or mormonism services? 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 on file Not on [...] - 1-dose 75+ series) 02/10/2024 [place]) Preventative Visit/Annual Wellness Visit 09/23/2024 09/20/2020, 09/24/2018, [...] years Discontinued Medical Devices Implanted Type Area Counter Maker Device Identifier Shelf Expiration Date Model / Serial / Lot Log 1458 - Mesh Ethicon Hernia - 1 - Barrier Seprafilm [id number] Implanted:Qty: 1 on 10/07/2008 at [facility] Adhesion Barrier N/A: Abdomen GENZYME- BIOSURG 4301-02 / / [id number] Cement Simplex Hvisc 6194-1-010 - [id number] Implanted:Qty: 1 on 07/02/2017 by Alex Phillips MD at [facility] Cement Left: Knee GENEVIEVE- HOWMEDICA INT INC 12/21/2018 6194-1-010 / / [id number] Lens Io Bi-Aspheric Softechd+16.0 - [id number] Implanted:Qty: 1 on 12/22/2020 by Jeremias Banerjee MD at [facility] Eye Left: Eye LENSTEC INC 07/11/2022 SOFTECHD+16 .0 / [id number] / Lens Io Tecnis 15.0 [id number] - [id number] Implanted:Qty: 1 on 01/13/2021 by Jeremias Banerjee MD at [facility] Eye Right: Eye CRUZ MED OPTICS-J&J VISION 11/04/2024 [id number] / [id number] / Cup Pinn Sctr Series 52mm 1217-22-052 - [id number] Implanted:Qty: 1 on 07/11/2016 by Paco Joe MD at [facility] Hip Right: Hip J&J- DEPUY ORTHOPAEDICS INC 04/22/2026 [id number] / / [id number] Stem Fem [place] Por Sz5 1570-01-110 - [id number] Implanted:Qty: 1 on 07/11/2016 by Paco Joe MD at [facility] Hip Right: Hip J&J- DEPUY ORTHOPAED[employer] INC 04/22/2026 1570--110 / / [id number] Liner Pinn Altrx Poly 1221-36-052 - [id number] Implanted:Qty: 1 on 07/11/2016 by Paco Joe MD at [facility] Hip Right: Hip J&J- DEPUY ORTHOPAED[employer] INC 05/23/2021 [id number] / / [id number] Head Fem Art/Tereso M-Spec 1365-52-000 - [id number] Implanted:Qty: 1 on 07/11/2016 by Paco Joe MD at [facility] Hip Right: Hip J&J- DEPUY ORTHOPAED[employer] INC 01/20/2021 1365-52-000 / / [id number] Comp Fem Gnsii Ps Cnstr Sz3 3765-9917 - [id number] Implanted:Qty: 1 on 07/02/2017 by Alex Phillips MD at [facility] Knee Left: Knee RICO NEPHEW ORTHO 01/07/2027 [id number] / / [id number] Comp Tib Gnsii Tip Scourer Sz2 Lt 8928-4730 - [id number] Implanted:Qty: 1 on 07/02/2017 by Alex Phillips MD at [facility] Knee Left: Knee RICO NEPHEW ORTHO 05/13/2025 [id number] / / [id number] Insert Lgn Ps Xlpe Sz 1 2 11mm [id number] - [id number] Implanted:Qty: 1 on 07/02/2017 by Alex Phillips MD at [facility] Knee Left: Knee RICO NEPHEW ORTHO 07/30/2026 [id number] / / [id number] Patella Gnsii Biconvex 23mm 7755-1299 - [id number] Implanted:Qty: 1 on 07/02/2017 by Alex Phillips MD at [facility] Knee Left: Knee RICO NEPHEW ORTHO 03/20/2027 [id number] / / [id number] Log 1458 - Mesh Ethicon Hernia - 1 - Mesh Proceed [id number] Implanted:Qty: 1 on 10/07/2008 at [facility] Mesh N/A: Abdomen J&J- ETHICON INC 11/21/2009 PCDH1 / / [id number] Screw Aequalis St Loc 4.5x26mm Ukk006 - [id number] Implanted:Qty: 1 on 11/13/2016 by Alex Phillips MD at [facility] Screw Left: Shoulder TORNIER INC 11/20/2016 [id number] / / [id number] Screw Aequalis St Loc 4.5x26mm Axn910 - [id number] Implanted:Qty: 1 on 11/13/2016 by Alex Phillips MD at [facility] Screw Left: Shoulder TORNIER INC 11/20/2016 FGL120 / / [id number] Ins Ascnd Flx Rvrs 36mm Tve407x - [id number] Implanted:Qty: 1 on 11/13/2016 by Alex Phillips MD at [facility] Shoulder Left: Shoulder TORNIER INC 10/02/2021 [id number] / / [id number] Stem Hum Ascnd Flx Ptc Std Sz2b Ktv007x - [id number] Implanted:Qty: 1 on 11/13/2016 by Alex Phillips MD at [facility] Shoulder Left: Shoulder TORNIER INC 07/24/2021 [id number] / / [id number] Glenoid Sphere Aequalis Rvrs Ii Vlz170 - [id number] Implanted:Qty: 1 on 11/13/2016 by Alex Phillips MD at [facility] Shoulder Left: Shoulder TORNIER INC 09/18/2021 [id number] / / [id number] Tray Hum Ascnd Flx Ecc Rev Ntr974 - [id number] Implanted:Qty: 1 on 11/13/2016 by Alex Phillips MD at [facility] Shoulder Left: Shoulder TORNIER INC 09/28/2021 FOA015 / / [id number] Baseplate Aequalis Rvrsii Vlk643 - [id number] Implanted:Qty: 1 on 11/13/2016 by Alex Phillips MD at [facility] Shoulder Left: Shoulder TORNIER INC 10/10/2021 RTO110 / / [id number] Procedures Procedure Name Priority Date/Time Associated Diagnosis Comments HEMOGLOBIN A1C Routine 02/13/2021 10:59 AM CDT Type 2 diabetes mellitus with stage 3 chronic kidney disease, without long-term current use of insulin, unspecified whether stage 3a or 3b CKD ([facility]/HCC) HM DIABETES EYE EXAM Routine 09/08/2019 MICROALBUMIN/CREATI NINE RATIO, RANDOM UR Routine 09/04/2019 9:00 AM COMPLAINT CLERK Type 2 diabetes mellitus with stage 3 chronic kidney disease, without long-term current use of insulin ([facility]/HCC) LIPID PANEL Routine 09/04/2019 9:00 AM COMPLAINT CLERK Type 2 diabetes mellitus with stage 3 chronic kidney disease, without long-term current use of insulin ([facility]) Essential hypertension ENDOSCOPY, COLON, SCREENING Routine 10/28/2014 3:04 PM COMPLAINT CLERK Screening for colon cancer XR DEXA BONE DENSITY AXIAL 1 OR MORE SITES Routine 10/23/2013 Osteopenia POC OCCULT BLOOD UP TO 3 CARDS Routine 04/17/2011 9:08 AM CDT Screening for colon cancer from Last 3 Months or Most Recently Relevant to Health Maintenance Results * (ABNORMAL) HEMOGLOBIN A1C (02/13/2021 10:59 AM CDT) HEMOGLOBIN A1C 7.2(H) See Comment % 02/14/2021 10:01 AM CDT [facility] EST. AVG GLUCOSE, A1C 160 mg/dL 02/14/2021 10:01 AM CDT [facility] Blood Venipuncture / Unknown 02/13/2021 10:59 AM CDT 02/13/2021 8:36 PM CDT Narrative [facility] - 02/14/2021 10:01 AM CDT HGB A1C INTERPRETATION NORMAL: <5.7% PRE-DIABETES: 5.7 - 6.4% DIABETES: 6.5% OR GREATER Falsely low A1C measurements can occur when: 1. Anemia and/or hemolytic anemia is present. 2. Hemoglobin variants present. 3. Renal failure. 4. Transfusion of blood product in the last 120 days. We recommend ordering a fructosamine test([id number]) to more accurately assess glycemic status if any of the above conditions are present. Shanika Zavala FACILITIES MAINTENANCE WORKER CHEMISTRY ORDERABLES Final Re sult [facility] CLIA# [id number] [facility] [place] [address] * DIABETES EYE EXAM (09/08/2019) us Abstract Spg Provider HEALTH MAINTENANCE Final R esult * MICROALBUMIN/CREATININE RATIO, RANDOM UR (09/04/2019 9:00 AM COMPLAINT CLERK) MICROALBUMIN, URINE 1.4 No Reference Range mg/dL 09/04/2019 8:51 PM COMPLAINT CLERK [facility] CREATININE, URINE 95.5 29.0 - 226.0 mg/dL 09/04/2019 8:51 PM COMPLAINT CLERK [facility] Comment:Reference Range vari es with fluid intake and diet. MICROALBUMIN/C REAT RATIO, UR 14.7 <25.0 mg/g 09/04/2019 8:51 PM [facility] Urine URINE SPECIMEN OBTAINED BY CLEAN CATCH PROCEDURE / Unknown Collection / Unknown 09/04/2019 9:00 AM COMPLAINT CLERK 09/04/2019 7:32 PM COMPLAINT CLERK Narrative [facility] - 09/04/2019 8:51 PM COMPLAINT CLERK Condition Microalbumin/Creat ratio Normal Males <17 Normal Females <25 Microalbuminuria Males 17-299 Microalbuminuria Females 25-299 Overt proteinuria >=300 Shanika Zavala FACILITIES MAINTENANCE WORKER URINE ORDERABLES Final Result [facility] CLIA# [id number] [address] [place] [address] * (ABNORMAL) LIPID PANEL (09/04/2019 9:00 AM COMPLAINT CLERK) CHOLESTEROL 250(H) <200 mg/dL 09/04/2019 8:20 PM [facility] TRIGLYCERIDE 168(H) <150 mg/dL 09/04/2019 8:[address] [facility] HDL 53 40 - 59 mg/dL 09/04/2019 8:[address] [facility] LDL CALCULATED 163(H) <100 mg/dL 09/04/2019 8:[address] [facility] NON-HDL CHOLESTEROL 197(H) <130 mg/dL 09/04/2019 8:[address] [facility] Blood Venipuncture / Unknown 09/04/2019 9:00 AM COMPLAINT CLERK 09/04/2019 7:34 PM COMPLAINT CLERK Narrative [facility] - 09/04/2019 8:20 PM COMPLAINT CLERK TOTAL CHOLESTEROL mg/dL Desirable <200 Borderline high [...] Ranges for Lipid Panels (NCEP/AMA) Shanika Zavala FACILITIES MAINTENANCE WORKER CHEMISTRY ORDERABLES Final Re sult Performing Organization Address City/[facility] Co de Phone Number [facility]# [id number] [facility] [place] [address] * XR DEXA BONE DENSITY AXIAL 1 OR MORE SITES (10/23/2013) Anatomical Region Laterality Modality Other Shanika [facility] ORDERABLES Final Result * POC OCCULT BLOOD UP TO 3 CARDS (04/17/2011 9:08 AM CDT) OCCULT BLOOD #1 Negative Negative OCCULT BLOOD #2 Negative Negative OCCULT BLOOD #3 Negative Negative Stool specimen (specimen) Shanika Zavala FACILITIES MAINTENANCE WORKER POINT OF CARE TESTING Final R esult * [place] COLONOSCOPY,DIAGNOSTIC (12/13/2008) London Cooper DO [place] - DIGESTIVE SYSTEM SERVICE S Final Result Performing Organization Address City/State/[facility] Co de Phone Number [facility] from Last 3 Months or Most Recently Relevant to Health Maintenance Insurance [facility] RX [facility] Medicare Part D RX [employer] (INTERNAL) [facility] Internal Plans Advance Directives For more information, please contact: [phone] Documents on File Type Date Recorded Patient Gun Fertilizer Expl anation Advance Directive POA 03/01/2015 1:21 [...] 12:53 PM 11/14/2016 1:13 PM Care Teams Semiconductor Lab Technician Relationship Specialty Start Date End Date Charles Delgadillo MD [address] [place] [address] PCP - General Family Practice 09/05/10
--- OUTSIDE RECORDS SUMMARY | 2025-09-20 14:47 | XMS_ITS | Encounter Summary ---
Author Organization [facility] Address [address] [place] [address] Care Team Providers Care Printed Circuit Board Reworker Name Role Phone Charles Delgadillo MD Primary Care Provider [phone] Encounter Details Date Type Department Care Team (Latest Contact Info) Description 11/28/2006 Outpatient Historical 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 Dx); Thoracic or Lumbosacral Neuritis or Radiculitis, Unspecified Social History Tobacco Use Types Packs/Day Years Used Date Smoking Tobacco: Never Assessed Comments Unknown Sex and Gender Information Value Date Recorded Sex Assigned at Not on file Legal Sex Female 5:59 AM STAPLER MACHINE Gender Identity Not on file Sexual Orientation Not on file documented as of this encounter Plan of Treatment Not on file documented as of this encounter Visit Diagnoses Diagnosis Degeneration of lumbar or lumbosacral intervertebral disc- Primary Thoracic or lumbosacral neuritis or radiculitis, unspecified documented in this encounter Care Teams Printed Circuit Board Reworker Relationship Specialty Start Date End Date Charles Delgadillo MD [address] [place] [address] PCP - General Family Practice 09/05/10 documented as of this encounter
--- OUTSIDE RECORDS SUMMARY | 2025-09-20 14:47 | XMS_ITS | Encounter Summary ---
Author Organization [facility] Address [address] [place] [address] Care Team Providers Care Molder Name Role Phone Charles Delgadillo MD Primary Care Provider [phone] Encounter Details Date Type Department Care Team (Latest Contact Info) Description 12/04/2006 Outpatient Historical [facility] [address] [place] [address] Antonio Lopez MD [address] [place] [address] Unspecified Backache (Primary Dx); Lumbosacral Spondylosis; Degeneration of Lumbar or Lumbosacral Intervertebral Disc Social History Tobacco Use Types Packs/Day Years Used Date Smoking Tobacco: Never Assessed Comments Unknown Sex and Gender Information Value Date Recorded Sex Assigned at Not on file Legal Sex Female 5:59 AM INTERIOR DECORATOR PAINTING Gender Identity Not on file Sexual Orientation Not on file documented as of this encounter Plan of Treatment Not on file documented as of this encounter Visit Diagnoses Diagnosis Backache, unspecified- Primary Lumbosacral spondylosis Lumbosacral spondylosis without myelopathy Degeneration of lumbar or lumbosacral intervertebral disc documented in this encounter Care Teams Molder Relationship Specialty Start Date End Date Charles Delgadillo MD [address] [place] [phone] PCP - General Family Practice 09/05/10 documented as of this encounter
--- OUTSIDE RECORDS SUMMARY | 2025-09-20 14:47 | XMS_ITS | Encounter Summary ---
Author Organization [facility] Address [address] [place] [address] Care Team Providers Care Radiology Transporter Name Role Phone Charles Delgadillo MD Primary Care Provider [phone] Encounter Details Date Type Department Care Team (Late st Contact Info) Description 05/19/2015 Ancillary Orders [facility] Pain [facility] [address] [place] [address] Keesha Valle PA [address] [place] [address] Lumbosacral spondylosis without myelopathy (Primary [...] on file Legal Sex Female 5:59 AM DRAFTER AUTOMOTIVE DESIGN Gender Identity Not on file Sexual Orientation Not on file 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
--- OUTSIDE RECORDS SUMMARY | 2025-09-20 14:47 | XMS_ITS | Encounter Summary ---
Author Organization [employer] [facility] Address [address] [place] [address] Care Team Providers Care Master Certified Rv Technician Name Role Phone Charles Delgadillo MD Primary Care Provider [phone] Encounter Details Date Type Department Care Team (Latest Contact Info) Description 11/22/2006 Outpatient Historical [facility] Pain Management Procedures [address] 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
--- OUTSIDE RECORDS SUMMARY | 2025-09-20 14:47 | XMS_ITS | Encounter Summary ---
Author Organization [facility] Address [address] [place] [address] Care Team Providers Care Feller Operator Name Role Phone Charles Delgadillo MD Primary Care Provider [phone] Encounter Details Date Type Department Care Team (Late st Contact Info) Description 11/20/2006 Outpatient Historical [facility] [address] [place] [phone] Social History Tobacco Use Types Packs/Day Years Used Date Smoking Tobacco: Never Assessed Comments Unknown Sex and Gender Information Value Date Recorded Sex Assigned at Not on file Legal Sex Female 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
--- OUTSIDE RECORDS SUMMARY | 2025-09-20 14:47 | XMS_ITS | Encounter Summary ---
Author Organization [facility] Address [address] [place] [address] Care Team Providers Care Billing And Insurance Coordinator Name Role Phone Charles Delgadillo MD Primary Care Provider [phone] Encounter Details Date Type Department Care Team (Latest Contact Info) Description 12/11/2006 Outpatient Historical [facility] General and Trauma Surgery-[address] [place] [address] Adeel Jenkins S, DO [address] [place] [address] Unspecified Backache (Primary Dx) Social History Tobacco Use Types Packs/Day Years Used Date Smoking Tobacco: Never Assessed Comments Unknown Sex and Gender Information Value Date Recorded Sex Assigned at Not on file Legal 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
--- OUTSIDE RECORDS SUMMARY | 2025-09-20 14:47 | XMS_ITS | Encounter Summary ---
Author Organization [email or web address] [facility] Address [address] [place] [address] Care Team Providers Care Rider Ticket Worker Name Role Phone Charles Delgadillo MD Primary Care Provider [phone] Reason for Referral * Outpatient Services (Routine) - Closed Specialty Diagnoses / Procedures Referred By Tisha troncoso Referred To Contact Diagnoses Encounter for screening mammogram for breast cancer Procedures MAMMO DIGITAL SCREEN BILAT [employer] Shanika Zavala FNP [address] [place] [phone] Phone: tel: fax: Referral ID Status Reason Start Date Expiration Date Visits Re quested Visits Authorized [id number] Closed 08/01/2015 08/31/2016 1 1 SSING MACHINE OPERATOR Encounter Details Date Type Department Care Team (Latest Contact Info) Description 08/01/2015 Ancillary Orders [facility] [address] [address] Shanika Zavala FNP [address] [place] [phone] Encounter for screening mammogram for breast cancer (Primary Dx) Social History Tobacco Use Types Packs/Day Years Used Date Smoking Tobacco: Never Smokeless Tobacco: Never Alcohol Use Standard Drinks/Week Comments No 0 (1 standard drink = 0.6 oz pur e alcohol) Comments No Sex and Gender Information Value Date Recorded Sex Assigned at Not on file Legal Sex Female 5:59 AM EMBOSSING MACHINE OPERATOR Gender Identity Not on file Sexual Orientation Not on file 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 Shanika Zavala RN IV THERAPY MAMMO ORDERABLES Final Result documented in this encounter Visit Diagnoses Diagnosis Encounter for screening mammogram for breast cancer- Primary Encounter for screening mammogram for breast cancer documented in this encounter Care Teams Rider Ticket Worker Relationship Specialty Start Date End Date Charles Delgadillo MD [address] [place] [address] PCP - General Family Practice 09/05/10 documented as of this encounter
--- OUTSIDE RECORDS SUMMARY | 2025-09-20 14:47 | XMS_ITS | Encounter Summary ---
Author Organization [facility] Address [address] [place] [address] Care Team Providers Care Director Emergency Name Role Phone Charles Delgadillo MD Primary Care Provider [phone] Encounter Details Date Type Department Care Team (Latest Contact Info) Description 11/20/2006 Outpatient [facility] [address] [address] Antonio Lopez MD [address] [place] [address] Disorders of Sacrum (Primary Dx) Social History Tobacco Use Types Packs/Day Years Used Date Smoking Tobacco: Never Assessed Comments Unknown Sex and Gender Information Value Date Recorded Sex Assigned at Not on file Legal Sex Female 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
--- OUTSIDE RECORDS SUMMARY | 2025-09-20 14:47 | XMS_ITS | Encounter Summary ---
Author Organization [facility] Address [address] [place] [address] Care Team Providers Care Test Lab Technician Name Role Phone Charles Delgadillo MD Primary Care Provider Encounter Details Date Type Department Care Team (Latest Contact Info) Description 11/22/2006 Outpatient Historical [facility] [address] [place] [address] Melvin Caro Degeneration of Lumbar or Lumbosacral Intervertebral Disc (Primary Dx); Thoracic or Lumbosacral Neuritis or Radiculitis, Unspecified Social History Tobacco Use Types Packs/Day Years Used Date Smoking Tobacco: Never Assessed Comments Unknown Sex and Gender Information Value Date Recorded Sex Assigned at Not on file Legal Sex Female 5:59 AM MASTER PILOT Gender Identity Not on file Sexual Orientation Not on file documented as of this encounter Plan of Treatment Not on file documented as of this encounter Visit Diagnoses Diagnosis Degeneration of lumbar or lumbosacral intervertebral disc- Primary Thoracic or lumbosacral neuritis or radiculitis, unspecified documented in this encounter Care Teams Test Lab Technician Relationship Specialty Start Date End Date Charles Delgadillo MD [address] [place] [address] PCP - General Family Practice 09/05/10 documented as of this encounter
--- OUTSIDE RECORDS SUMMARY | 2025-09-20 14:47 | XMS_ITS | Encounter Summary ---
Author Organization [facility] Address [address] [place] [address] Care Team Providers Care Dry Cleaning Machine Operator Name Role Phone Charles Delgadillo MD Primary Care Provider [phone] Encounter Details Date Type Department Care Team (Latest Contact Info) Description 12/06/2006 Outpatient Historical [facility] Nuclear [address] [address] Antonio Lopez MD [address] [place] [address] Asymptomatic Postmenopausal Status (Age-Related) (Natural) (Primary Dx) Social History Tobacco Use Types Packs/Day Years Used Date Smoking Tobacco: Never Assessed Comments Unknown Sex and Gender Information Value Date Recorded Sex Assigned at Not on file Legal Sex Female 5:59 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
--- OUTSIDE RECORDS SUMMARY | 2025-09-20 14:47 | XMS_ITS | Encounter Summary ---
Author Organization [facility] Address [address] [place] [address] Care Team Providers Care Patent Prosecution Attorney Name Role Phone Charles Delgadillo MD Primary Care Provider [phone] Encounter Details Date Type Department Care Team (Latest Contact Info) Description 11/20/2006 Outpatient Historical [facility] [address] [place] [address] Antonio Lopez MD [address] [place] [address] Unspecified Backache (Primary Dx); Lumbosacral Spondylosis; Degeneration of Lumbar or Lumbosacral Intervertebral Disc Social History Tobacco Use Types Packs/Day Years Used Date Smoking Tobacco: Never Assessed Comments Unknown Sex and Gender Information Value Date Recorded Sex Assigned at Not on file Legal Sex Female 5:59 AM CASTING 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 Gender Identity Not on file Sexual Orientation Not on file documented as of this encounter Plan of Treatment Not on file documented as of this encounter Visit Diagnoses Diagnosis Backache, unspecified- Primary Lumbosacral spondylosis Lumbosacral spondylosis without myelopathy Degeneration of lumbar or lumbosacral intervertebral disc documented in this encounter Care Teams Patent Prosecution Attorney Relationship Specialty Start Date End Date Charles Delgadillo MD [address] [place] [phone] PCP - General Family Practice 09/05/10 documented as of this encounter
--- OUTSIDE RECORDS SUMMARY | 2025-09-20 14:47 | XMS_ITS | Encounter Summary ---
Author Organization [facility] Address [address] [place] [address] Care Team Providers Care Unix Analyst Name Role Phone Charles Delgadillo MD Primary Care Provider [phone] Encounter Details Date Type Department Care Team (Latest Contact Info) Description 11/01/2006 Outpatient Historical [facility] [address] [place] [address] Melvin Caro Disorders of Sacrum (Primary Dx); Thoracic or Lumbosacral Neuritis or Radiculitis, Unspecified Social History Tobacco Use Types Packs/Day Years Used Date Smoking Tobacco: Never Assessed Comments Unknown Sex and Gender Information Value Date Recorded Sex Assigned at Not on file Legal Sex Female 5:59 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
--- OUTSIDE RECORDS SUMMARY | 2025-09-20 14:47 | XMS_ITS | Encounter Summary ---
Author Organization [facility] Address [address] [place] [address] Care Team Providers Care Data Management Manager Name Role Phone Charles Delgadillo MD Primary Care Provider [phone] Encounter Details Date Type Department Care Team (Latest Contact Info) Description 12/05/2006 Outpatient Historical [facility] [address] [place] [phone] Roz Capellan MD [address] [place] [phone] Allergy, Unspecified not Elsewhere Classified (Primary Dx); Cervicalgia; Unspecified Backache Social History Tobacco Use Types Packs/Day Years Used Date Smoking Tobacco: Never Assessed Comments Unknown Sex and Gender Information Value Date Recorded Sex Assigned at Not on file Legal Sex Female 5:59 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
--- OUTSIDE RECORDS SUMMARY | 2025-09-20 14:47 | XMS_ITS | Encounter Summary ---
Author Organization [facility] Address [address] [place] [address] Care Team Providers Care Supervising Librarian Name Role Phone Charles Delgadillo MD Primary Care Provider [phone] Encounter Details Date Type Department Care Team (Latest Contact Info) Description 12/06/2006 Outpatient Historical [facility] [address] [place] [address] Antonio Lopez MD [address] [place] [address] Pre-Operative Cardiovascular Examination (Primary Dx) Social History Tobacco Use Types Packs/Day Years Used Date Smoking Tobacco: Never Assessed Comments Unknown Sex and Gender Information Value Date Recorded Sex Assigned at Not on file Legal Sex Female 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
--- OUTSIDE RECORDS SUMMARY | 2025-09-20 14:47 | XMS_ITS | Encounter Summary ---
Author Organization [facility] Address [address] [place] [address] Care Team Providers Care Front Desk Specialist Name Role Phone Charles Delgadillo MD Primary Care Provider [phone] Reason for Referral * Radiology Services (Routine) - Closed Specialty Diagnoses / Procedures Referred By Tisha troncoso Referred To Contact Diagnoses Visit for screening mammogram Procedures MAMMO 3D SCREEN BILATERAL MOBILE Shanika Zavala FNP [address] [place] [phone] Phone: tel: fax: Referral ID Status Reason Start Date Expiration Date Visits Re quested Visits Authorized [id number] Closed 11/02/2020 12/03/2021 1 1 N TENDER Encounter Details Date Type Department Care Team (Latest Contact Info) Description 11/02/2020 Ancillary Orders [facility] [address] [address] Shanika Zavala FNP [address] [place] [phone] Visit for screening mammogram Social History [...] How often do you attend chur or mandaeism services? 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 No / Unsure 10/18/2020 2:33 PM CHAIN TENDER documented as of this encounter Plan of Treatment Not on file documented as of this encounter Results * MAMMO 3D SCREEN BILATERAL MOBILE (11/30/2020 10:48 AM CHAIN TENDER) Anatomical Region Laterality Modality Breast Bilateral Mammography Narrative 12/01/2020 12:35 PM CHAIN TENDER Bilateral Digital Mammogram with CAD and 3D [...] since the prior mammogram(s). us Shanika Zavala OPTICAL STORE MANAGER MAMMO ORDERABLES Final Result documented in this encounter Visit Diagnoses Diagnosis Visit for screening mammogram Other screening mammogram Visit for screening mammogram Other screening mammogram documented in this encounter Care Teams Front Desk Specialist Relationship Specialty Start Date End Date Charles Delgadillo MD [address] [place] [address] PCP - General Family Practice 09/05/10 documented as of this encounter
--- OUTSIDE RECORDS SUMMARY | 2025-09-20 14:47 | XMS_ITS | Encounter Summary ---
Author Organization [facility] Address [address] [place] [address] Care Team Providers Care Sheet Roller Operator Name Role Phone Charles Delgadillo MD Primary Care Provider [phone] Encounter Details Date Type Department Care Team (Latest Contact Info) Description 12/04/2006 Outpatient [facility] [address] [place] [address] [address] Antonio Lopez MD [address] [place] [address] Lumbago (Primary Dx) Social History Tobacco Use Types Packs/Day Years Used Date Smoking Tobacco: Never Assessed Comments Unknown Sex and Gender Information Value Date Recorded Sex Assigned at Not on file Legal Sex Female 5: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
--- OUTSIDE RECORDS SUMMARY | 2025-09-20 14:47 | XMS_ITS | Encounter Summary ---
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 Co de Phone Number INTERFACE SYSTEM Refer to clinic/hospital department * (ABNORMAL) POC GLUCOSE (12/29/2006 6:24 PM CDT) GLUCOSE POC 151(H) 60 - 100 mg/dL INTERFACE SYSTEM 12/29/2006 6:24 PM CDT Antonio Lopez MD POINT OF CARE TESTING Edited Performing Organization Address [facility] de Phone Number INTERFACE SYSTEM Refer to clinic/hospital department * POC GLUCOSE (12/29/2006 10:58 AM CDT) GLUCOSE POC 95 60 - 100 mg/dL INTERFACE SYSTEM 12/29/2006 10:5 8 AM CDT us Antonio Lopez MD POINT OF CARE TESTING Edited Performing Organization Address [facility] de Phone Number INTERFACE SYSTEM Refer to clinic/hospital department * (ABNORMAL) POC GLUCOSE (12/29/2006 5:12 AM CDT) GLUCOSE POC 119(H) 60 - 100 mg/dL INTERFACE SYSTEM 12/29/2006 5:12 AM CDT us Antonio Lopez MD POINT OF CARE TESTING Edited Performing Organization Address City/[facility] Co de Phone Number INTERFACE SYSTEM Refer [...] Goal INR 3.0; range 2.5 - 3.5 POST-WA Goal INR 2.5; range 2.0 - 3.0 or Goal 3.0; range 2.5 - 3.5 Atrial Fibrillation Goal INR 2.5; range 2.0 - 3.0 Ischemic Stroke Goal INR 2.5; range 2.0 - 3.0 For additional information see Guidelines for Anticoagulation available from the pharmacy Johanny Frank 12/29/2006 4:03 AM CDT us Antonio [...] MD HEMATOLOGY ORDERABLES Edited Performing Organization Address City/[facility] de Phone Number INTERFACE SYSTEM Refer to clinic/hospital department * (ABNORMAL) POC GLUCOSE (12/28/2006 9:39 PM CDT) GLUCOSE POC 151(H) 60 - 100 mg/dL INTERFACE SYSTEM 12/28/2006 9:39 PM CDT Antonio Lopez MD POINT OF CARE TESTING Edited Performing Organization Address [facility] de Phone Number INTERFACE SYSTEM Refer to clinic/hospital department * (ABNORMAL) POC GLUCOSE (12/28/2006 4:16 PM CDT) GLUCOSE POC 109(H) 60 - 100 mg/dL INTERFACE SYSTEM 12/28/2006 4:16 PM CDT us Antonio Lopez MD POINT OF CARE TESTING Edited Performing Organization Address [facility] de Phone Number INTERFACE SYSTEM Refer to clinic/hospital department * (ABNORMAL) POC GLUCOSE (12/28/2006 10:37 AM CDT) GLUCOSE POC 156(H) 60 - 100 mg/dL INTERFACE SYSTEM 12/28/2006 10:3 7 AM CDT us Antonio Lopez MD POINT OF CARE TESTING Edited Performing Organization Address City/[facility] de Phone Number [...] MD HEMATOLOGY ORDERABLES Edited Performing Organization Address City/State/[facility] Co de Phone Number INTERFACE SYSTEM Refer [...] Goal INR 3.0; range 2.5 - 3.5 POST-WA Goal INR 2.5; range 2.0 - 3.0 [...] OF CARE TESTING Edited Performing Organization Address [facility] de Phone Number INTERFACE SYSTEM Refer to clinic/hospital department * (ABNORMAL) POC GLUCOSE (12/27/2006 5:08 PM CDT) GLUCOSE POC 111(H) 60 - 100 mg/dL INTERFACE SYSTEM 12/27/2006 5:08 PM CDT us Antonio Lopez MD POINT OF CARE TESTING Edited Performing Organization Address [facility] de Phone Number INTERFACE SYSTEM Refer to clinic/hospital department * (ABNORMAL) POC GLUCOSE (12/27/2006 11:12 AM CDT) GLUCOSE POC 118(H) 60 - 100 mg/dL INTERFACE SYSTEM COMMENT POC Follow Protocol INTERFACE SYSTEM 12/27/2006 11:1 2 AM CDT us Antonio Lopez MD POINT OF CARE TESTING Edited Performing Organization Address [facility] Phone Number INTERFACE SYSTEM Refer to [...] Goal INR 3.0; range 2.5 - 3.5 POST-WA Goal INR 2.5; range 2.0 - 3.0 or Goal 3.0; range 2.5 - 3.5 Atrial Fibrillation Goal INR 2.5; range 2.0 - 3.0 Ischemic Stroke Goal INR 2.5; range 2.0 - 3.0 For additional information see Guidelines for Anticoagulation available from the pharmacy Johanny Frank 12/27/2006 6:34 AM CDT Antonio Lopez MD HEMATOLOGY ORDERABLES Edited Performing Organization Address [facility] de Phone Number [...] MD CHEMISTRY ORDERABLES Edited Performing Organization Address [facility] Phone Number INTERFACE SYSTEM Refer to [...] OF CARE TESTING Edited Performing Organization Address [facility] de Phone Number INTERFACE SYSTEM Refer to clinic/hospital department * (ABNORMAL) POC GLUCOSE (12/26/2006 11:51 AM CDT) GLUCOSE POC 118(H) 60 - 100 mg/dL INTERFACE SYSTEM 12/26/2006 11:5 1 AM CDT Antonio Lopez MD POINT OF CARE TESTING Edited Performing Organization Address [facility] de Phone Number INTERFACE SYSTEM Refer to clinic/hospital department * (ABNORMAL) POC GLUCOSE (12/26/2006 5:22 AM CDT) GLUCOSE POC 114(H) 60 - 100 mg/dL INTERFACE SYSTEM 12/26/2006 5:22 AM CDT us Antonio Lopez MD POINT OF CARE TESTING Edited Performing Organization Address [facility] de Phone Number [...] Goal INR 3.0; range 2.5 - 3.5 POST-WA Goal INR 2.5; range 2.0 - 3.0 or Goal 3.0; range 2.5 - 3.5 Atrial Fibrillation Goal INR 2.5; range 2.0 - 3.0 Ischemic Stroke Goal INR 2.5; range 2.0 - 3.0 For additional information see Guidelines for Anticoagulation available from the pharmacy Johanny Frank 12/26/2006 5:12 AM CDT Antonio Lopez MD HEMATOLOGY ORDERABLES Edited Performing Organization Address [facility] de Phone Number [...] MD CHEMISTRY ORDERABLES Edited Performing Organization Address [facility] Phone Number INTERFACE SYSTEM Refer to [...] MD HEMATOLOGY ORDERABLES Edited Performing Organization Address City/[facility] de Phone Number INTERFACE SYSTEM Refer to clinic/hospital department * (ABNORMAL) POC GLUCOSE (12/25/2006 9:21 PM CDT) GLUCOSE POC 139(H) 60 - 100 mg/dL INTERFACE SYSTEM 12/25/2006 9:21 PM CDT Antonio Lopez MD POINT OF CARE TESTING Edited Performing Organization Address City/[facility] de Phone Number INTERFACE SYSTEM Refer to clinic/hospital department * (ABNORMAL) POC GLUCOSE (12/25/2006 6:17 PM CDT) GLUCOSE POC 129(H) 60 - 100 mg/dL INTERFACE SYSTEM 12/25/2006 6:17 PM CDT us Antonio Lopez MD POINT OF CARE TESTING Edited Performing Organization Address City/[facility] Co de Phone Number INTERFACE SYSTEM Refer to clinic/hospital department * (ABNORMAL) POC GLUCOSE (12/25/2006 11:32 AM CDT) GLUCOSE POC 123(H) 60 - 100 mg/dL INTERFACE SYSTEM 12/25/2006 11:3 2 AM CDT us Antonio Lopez MD POINT OF CARE TESTING Edited Performing Organization Address [facility] Phone Number INTERFACE SYSTEM Refer to [...] MD HEMATOLOGY ORDERABLES Edited Performing Organization Address [facility] Phone Number INTERFACE SYSTEM Refer to clinic/hospital department * (ABNORMAL) POC GLUCOSE (12/25/2006 5:40 AM CDT) GLUCOSE POC 137(H) 60 - 100 mg/dL INTERFACE SYSTEM 12/25/2006 5:40 AM CDT us Antonio Lopez MD POINT OF CARE TESTING Edited Performing Organization Address [facility] Phone Number INTERFACE SYSTEM Refer to [...] MD HEMATOLOGY ORDERABLES Edited Performing Organization Address City/[facility] Co de Phone Number INTERFACE SYSTEM Refer to clinic/hospital department * (ABNORMAL) PTT (12/25/2006 2:53 AM CDT) [facility] PTT 93.2(H) 21.6 - 35.6 Secs INTERFACE SYSTEM Comment: Therapeutic Range: Hi-level PE/DVT heparin protocol 80.1 -95.0 sec Lo-level PE/DVT heparin protocol 67.1 - 80.0 sec Cardiac Heparin Protocol 67.1 - 85.0 sec Neuro Heparin Protocol 67.1 - 80.0 sec As of 08/29/2006 note change in APTT Normal Range. 12/25/2006 2:53 AM CDT Antonio Lopez MD HEMATOLOGY ORDERABLES Edited Performing Organization Address [facility] Co de Phone Number INTERFACE SYSTEM Refer to clinic/hospital department * (ABNORMAL) POC GLUCOSE (12/24/2006 9:51 PM CDT) GLUCOSE POC 143(H) 60 - 100 mg/dL INTERFACE SYSTEM 12/24/2006 9:51 PM CDT us Antonio Lopez MD POINT OF CARE TESTING Edited Performing Organization Address City/[facility] de Phone Number [...] Goal INR 3.0; range 2.5 - 3.5 POST-WA Goal INR 2.5; range 2.0 - 3.0 or Goal 3.0; range 2.5 - 3.5 Atrial Fibrillation Goal INR 2.5; range 2.0 - 3.0 Ischemic Stroke Goal INR 2.5; range 2.0 - 3.0 For additional information see Guidelines for Anticoagulation available from the pharmacy Faustina Tellez, Pharm D. 12/24/2006 7:30 PM CDT Result [facility] Antonio Lopez MD HEMATOLOGY ORDERABLES Edited Performing Organization Address [facility] Phone Number INTERFACE SYSTEM Refer to clinic/hospital department * (ABNORMAL) POC GLUCOSE (12/24/2006 5:55 PM CDT) GLUCOSE POC 132(H) 60 - 100 mg/dL INTERFACE SYSTEM 12/24/2006 5:55 PM CDT Result [facility] us Antonio Lopez MD POINT OF CARE TESTING Edited Performing Organization Address [facility] de Phone Number INTERFACE SYSTEM Refer to clinic/hospital department * (ABNORMAL) POC GLUCOSE (12/24/2006 11:30 AM CDT) GLUCOSE POC 172(H) 60 - 100 mg/dL INTERFACE SYSTEM 12/24/2006 11:3 0 AM CDT Antonio Lopez MD POINT OF CARE TESTING Edited Performing Organization Address [facility] Phone Number INTERFACE SYSTEM Refer to clinic/hospital department * (ABNORMAL) POC GLUCOSE (12/24/2006 6:06 AM CDT) GLUCOSE POC 130(H) 60 - 100 mg/dL INTERFACE SYSTEM 12/24/2006 6:06 AM CDT Antonio Lopez MD POINT OF CARE TESTING Edited Performing Organization Address [place] Phone Number INTERFACE SYSTEM Refer to clinic/hospital [...] MD CHEMISTRY ORDERABLES Edited Performing Organization Address [facility] Phone Number INTERFACE SYSTEM Refer to [...] 0.0 - 0.2 K/ul INTERFACE SYSTEM 12/24/2006 5:0 0 AM CDT Antonio Lopez MD HEMATOLOGY ORDERABLES [...] OF CARE TESTING Edited Performing Organization Address [facility] de Phone Number INTERFACE SYSTEM Refer to clinic/hospital department * (ABNORMAL) POC GLUCOSE (12/23/2006 11:52 AM CDT) GLUCOSE POC 154(H) 60 - 100 mg/dL INTERFACE SYSTEM 12/23/2006 11:5 2 AM CDT us Antonio Lopez MD POINT OF CARE TESTING Edited Performing Organization Address [facility] Phone Number INTERFACE SYSTEM Refer to clinic/hospital department * (ABNORMAL) HEMOGLOBIN AND HEMATOCRIT (12/23/2006 10:31 AM CDT) HEMOGLOBIN 8.0(L) 12.0 - 16.0 g/dL INTERFACE SYSTEM HEMATOCRIT 24.4(L) 36.0 - 46.0 % INTERFACE SYSTEM 12/23/2006 10:3 1 AM CDT us Antonio Lopez MD HEMATOLOGY ORDERABLES Edited Performing Organization Address [facility] Phone Number INTERFACE SYSTEM Refer to clinic/hospital department documented in this encounter Visit Diagnoses Diagnosis Degeneration of lumbar or lumbosacral intervertebral disc- Primary documented in this encounter Care Teams Hand Paint Mixer Relationship Specialty Start Date End Date Charles Delgadillo MD [address], [place] [address] PCP - General Family Practice 09/05/10 documented as of this encounter
[2025-09-20] MEDS: fentaNYL 50 mcg/mL INJ 2mL 25 MCG IVP (15:35)
== END 2025-09-20 15:48 | disposition home or self-care (01) ==
PROVIDERS: Emergency Provider Family Medicine; PCP Family Medicine
DX: S42.292D Other displaced fracture of upper end of left humerus, subsequent encounter for fracture with routine healing (principal); W19.XXXD Unspecified fall, subsequent encounter; Z79.4 Long term (current) use of insulin; Z79.82 Long term (current) use of aspirin; E78.2 Mixed hyperlipidemia; E11.22 Type 2 diabetes mellitus with diabetic chronic kidney disease; I12.9 Hypertensive chronic kidney disease with stage 1 through stage 4 chronic kidney disease, or unspecified chronic kidney disease; N18.9 Chronic kidney disease, unspecified; J44.9 Chronic obstructive pulmonary disease, unspecified
CPT/HCPCS: 70450; 73030; 96374; 99285; J3010

== ENCOUNTER 2025-09-22 19:38 | Emergency (ER) | payer MEDICARE, SELFPAY ==
--- NOTE | 2025-09-22 19:43 | XRR_ITS ---
PROCEDURE INFORMATION: Exam: XR Chest Exam date and time: 09/22/2025 7:54 PM Age: 75 years old Clinical indication: Other: AMS; Additional info: Altered mentation TECHNIQUE: Imaging protocol: Radiologic exam of the chest. Views: 1 view. COMPARISON: CR XR chest 1V portable [id number] 08/27/2023 2:10 PM FINDINGS: Tubes, catheters and devices: Right chest Port-A-Cath. Lungs: Unremarkable. No consolidation. Pleural spaces: Unremarkable. No pleural effusion. No pneumothorax. Heart/Mediastinum: Unremarkable. No cardiomegaly. Vasculature: Aortic atherosclerosis. Bones/joints: Left shoulder prosthesis. XR/XR chest 1V portable [id number] IMPRESSION: No definite acute infiltrate or effusion.
[2025-09-22 19:45] VITALS: BP 131/68; PULSE 69; RESP 17; TEMP 37.1
[2025-09-22 19:46] VITALS: BP 156/61; PULSE 82; RESP 16; TEMP 36.9; O2SAT 90; BMI 33.5
--- OUTSIDE RECORDS SUMMARY | 2025-09-22 19:52 | XMS_ITS | Encounter Summary ---
Author Organization [facility] Address [address] [place] [address] Care Team Providers Care Process Stripper Name Role Phone Charles Delgadillo MD Primary Care Provider [phone] Encounter Details Date Type Department Care Team (Latest Contact Info) Description 02/10/[address] 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
--- OUTSIDE RECORDS SUMMARY | 2025-09-22 19:52 | XMS_ITS | Encounter Summary ---
Author Organization [employer] [facility] Address [address] [place] [address] Care Team Providers Care Upholstery Cleaner Name Role Phone Charles Delgadillo MD Primary Care Provider [phone] Encounter Details Date Type Department Care Team (Latest Contact Info) Description 01/12/2007 Outpatient Historical [facility] [address] 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
--- OUTSIDE RECORDS SUMMARY | 2025-09-22 19:52 | XMS_ITS | Encounter Summary ---
Author Organization [facility] Address [address] [place] [address] Care Team Providers Care Documentation Manager Name Role Phone Charles Delgadillo MD Primary Care Provider [phone] Encounter Details Date Type Department Care Team (Late st Contact Info) Description 02/20/[address] 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
--- OUTSIDE RECORDS SUMMARY | 2025-09-22 19:52 | XMS_ITS | Encounter Summary ---
Author Organization [facility] Address [address] [place] [address] Care Team Providers Care Blower Operator Name Role Phone Charles Delgadillo MD Primary Care Provider [phone] Encounter Details Date Type Department Care Team (Latest Contact Info) Description 03/06/2007 Outpatient Historical [facility] General and Trauma Surgery-[address] [place] [address] Paul King Jr., MD [address] [place] [address] [address] [place] [address] Embolism and Thrombosis of Unspecified Deep Vessels of Lower Extremity (CMS/HCC) (Primary Dx); Edema; Encounter for Long-Term (Current) Use of Anticoagulants Social History Tobacco Use Types Packs/Day Years Used Date Smoking Tobacco: Never Assessed Comments Unknown Sex and Gender Information Value Date Recorded Sex Assigned at Not on file 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
--- OUTSIDE RECORDS SUMMARY | 2025-09-22 19:52 | XMS_ITS | Encounter Summary ---
Author Organization [facility] Address [address] [place] [address] Care Team Providers Care Diesel Engine Mechanic Apprentice Name Role Phone Charles Delgadillo MD Primary Care Provider [phone] Encounter Details Date Type Department Care Team (Late st Contact Info) Description 02/10/2007 Inpatient Historical HIS IN BED Adeel Jenkins, DO [address] [place], [place] [id number] Peritoneal Abscess (CMS/HCC) (Primary Dx) Social History Tobacco Use Types Packs/Day Years Used Date Smoking Tobacco: Never Assessed Comments Unknown Sex and Gender Information Value Date Recorded Sex Assigned at Not on file 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 Phone Number INTERFACE SYSTEM Refer to [...] E SYSTEM 02/10/2007 2:17 PM CDT Result [facility] Adeel Jenkins DO HEMATOLOGY ORDERABLES COM Edit ed Performing Organization Address [facility] Phone Number INTERFACE SYSTEM Refer to [...] abscess documented in this encounter Care Teams Diesel Engine Mechanic Apprentice Relationship Specialty Start Date End Date Charles Delgadillo MD [address] [place] [address] PCP - General Family Practice 09/05/10 documented as of this encounter
--- OUTSIDE RECORDS SUMMARY | 2025-09-22 19:52 | XMS_ITS | Encounter Summary ---
Author Organization [facility] Address [address] [place] [address] Care Team Providers Care Finish Molder Name Role Phone Charles Delgadillo MD Primary Care Provider [phone] Encounter Details Date Type Department Care Team (Latest Contact Info) Description 02/21/2007 Outpatient Historical [facility] [place] [address] [place] [phone] Roz Capellan MD [address] [place] [phone] Unspecified Backache (Primary Dx); Unspecified Anemia; Unspecified Vaginitis and Vulvovaginitis Social History Tobacco Use Types Packs/Day Years Used Date Smoking Tobacco: Never Assessed Comments Unknown Sex and Gender Information Value Date Recorded Sex Assigned at Not on file 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
--- OUTSIDE RECORDS SUMMARY | 2025-09-22 19:52 | XMS_ITS | Encounter Summary ---
Author Organization [facility] Address [address] [place] [address] Care Team Providers Care Gamb Cutter Name Role Phone Charles Delgadillo MD Primary Care Provider [phone] Encounter Details Date Type Department Care Team (Latest Contact Info) Description 03/24/2007 Outpatient Historical [facility] Medicine [place] [address] [place] [phone] Roz Capellan MD [address] [place] [phone] Skin Sensation Disturb (Primary Dx); Unspecified Site of Ankle Sprain and Strain Social History Tobacco Use Types Packs/Day Years Used Date Smoking Tobacco: Never Assessed Comments Unknown Sex and Gender Information Value Date Recorded Sex Assigned at Not on file 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
--- OUTSIDE RECORDS SUMMARY | 2025-09-22 19:52 | XMS_ITS | Encounter Summary ---
Author Organization [facility] Address [address] [place] [address] Care Team Providers Care Government Auditor Name Role Phone Charles Delgadillo MD Primary Care Provider [phone] Encounter Details Date Type Department Care Team (Latest Contact Info) Description 04/28/2007 Outpatient Historical [facility] Medicine [place] [address] [place] [phone] Roz Capellan MD [address] [place] [phone] Acute Frontal Sinusitis (Primary Dx); Urinary Tract Infection, Site not Specified; Unspecified Closed Fracture of Ankle Social History Tobacco Use Types Packs/Day Years Used Date Smoking Tobacco: Never Assessed Comments Unknown Sex and Gender Information Value Date Recorded Sex Assigned at Not on file 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
--- OUTSIDE RECORDS SUMMARY | 2025-09-22 19:52 | XMS_ITS | Encounter Summary ---
Author Organization [facility] Address [address] [place] [address] Care Team Providers Care Newspaper Stuffer Name Role Phone Charles Delgadillo MD Primary Care Provider Encounter Details Date Type Department Care Team (Latest Contact Info) Description 02/20/2007 Outpatient Historical [facility] Imaging Services [address] 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
--- OUTSIDE RECORDS SUMMARY | 2025-09-22 19:52 | XMS_ITS | Encounter Summary ---
Author Organization [facility] Address [address] [facility] [place] [address] Care Team Providers Care Tier In Name Role Phone Charles Delgadillo MD Primary Care Provider [phone] Encounter Details Date Type Department Care Team (Late st Contact Info) Description 01/24/2007 Inpatient Historical [facility] John Guzman MD NO ADDRESS ON FILE Peripheral Vascular Complications (Primary Dx) Social History Tobacco Use Types Packs/Day Years Used Date Smoking Tobacco: Never Assessed Comments Unknown Sex and Gender Information Value Date Recorded Sex Assigned at Not on file 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 Phone Number INTERFACE SYSTEM Refer [...] ORDERABLES COM E dited Performing Organization Address [facility] Phone Number INTERFACE SYSTEM Refer [...] MD CHEMISTRY ORDERABLES Edited Performing Organization Address [facility] Phone Number INTERFACE SYSTEM Refer [...] HEMATOLOGY ORDERABLES Edite d Performing Organization Address [facility] Phone Number INTERFACE SYSTEM Refer [...] ORDERABLES COM E dited Performing Organization Address [facility] Phone Number INTERFACE SYSTEM Refer [...] MD CHEMISTRY ORDERABLES Edited Performing Organization Address [facility] Phone Number INTERFACE SYSTEM Refer [...] SYSTEM Comment: Potentially critical/toxic platelet called by [facility] to Dk PARR, with verbal read back, at 01/29/07 04:44. MPV 9.5 8.9 - 12.8 Fl INTERFACE SYSTEM NRBC 1 <=1 INTERFACE SYSTEM 01/29/2007 4:28 AM CDT John Guzman MD HEMATOLOGY ORDERABLES Edite d Performing Organization Address [facility] Phone Number INTERFACE SYSTEM Refer [...] MD CHEMISTRY ORDERABLES Edited Performing Organization Address [facility] Phone Number INTERFACE SYSTEM Refer [...] HEMATOLOGY ORDERABLES Final Result Performing Organization Address [facility] Phone Number INTERFACE SYSTEM Refer [...] HEMATOLOGY ORDERABLES Edite d Performing Organization Address [facility] Co de Phone Number INTERFACE [...] HEMATOLOGY ORDERABLES Edite d Performing Organization Address [facility]/ZIP Co de Phone Number INTERFACE SYSTEM [...] HEMATOLOGY ORDERABLES Edite d Performing Organization Address [facility] Phone Number INTERFACE SYSTEM Refer to [...] MD CHEMISTRY ORDERABLES Edited Performing Organization Address [facility] Phone Number INTERFACE SYSTEM Refer [...] MD CHEMISTRY ORDERABLES Edited Performing Organization Address [facility] Phone Number INTERFACE SYSTEM Refer [...] MD URINE ORDERABLES Edited Performing Organization Address [facility] Phone Number INTERFACE SYSTEM Refer to [...] MD CHEMISTRY ORDERABLES Edited Performing Organization Address [facility] Phone Number INTERFACE SYSTEM Refer [...] ORDERABLES COM E dited Performing Organization Address [facility] Phone Number INTERFACE SYSTEM Refer to [...] HEMATOLOGY ORDERABLES Edite d Performing Organization Address [facility] Phone Number INTERFACE SYSTEM Refer to clinic/hospital [...] HEMATOLOGY ORDERABLES Edite d Performing Organization Address [facility] Phone Number INTERFACE SYSTEM Refer [...] HEMATOLOGY ORDERABLES Edite d Performing Organization Address [facility] Phone Number INTERFACE SYSTEM Refer to clinic/hospital [...] HEMATOLOGY ORDERABLES Edite d Performing Organization Address [facility] Phone Number INTERFACE SYSTEM Refer [...] HEMATOLOGY ORDERABLES Edite d Performing Organization Address [facility] Phone Number INTERFACE SYSTEM Refer [...] ORDERABLES COM E dited Performing Organization Address [facility] Phone Number INTERFACE SYSTEM Refer [...] MD CHEMISTRY ORDERABLES Edited Performing Organization Address [facility] de Phone Number INTERFACE SYSTEM [...] HEMATOLOGY ORDERABLES Edite d Performing Organization Address [facility] Phone Number INTERFACE SYSTEM Refer [...] HEMATOLOGY ORDERABLES Edite d Performing Organization Address [facility] Phone Number INTERFACE SYSTEM Refer [...] HEMATOLOGY ORDERABLES Edite d Performing Organization Address [facility] Phone Number INTERFACE SYSTEM Refer [...] By: Nigel Barnett M.D. Electronically Signed By: Niegl Barnett M.D. Date Signed: 01/27/07 Procedure Note [...] Primary documented in this encounter Care Teams Tier In Relationship Specialty Start Date End Date Charles Delgadillo MD [address] [place] [phone] PCP - General Family Practice 09/05/10 documented as of this encounter
--- OUTSIDE RECORDS SUMMARY | 2025-09-22 19:52 | XMS_ITS | Encounter Summary ---
Author Organization [facility] Address [address] [place] [address] Care Team Providers Care Ironmolder Name Role Phone Charles Delgadillo MD Primary Care Provider [phone] Encounter Details Date Type Department Care Team (Latest Contact Info) Description 02/27/2007 Outpatient Historical [facility] Imaging Services [address] 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 02/27/2007 2:20 PM CDT Andrew Richards MD HEMATOLOGY ORDERABLES Edite d Performing Organization Address [facility] Phone Number INTERFACE SYSTEM Refer to clinic/hospital department * MAGNESIUM LEVEL (02/27/2007 2:20 PM CDT) MAGNESIUM 1.8 1.7 - 2.4 mg/dL INTERFACE SYSTEM Comment: The new reference range is 1.7-2.4 The old referance range was 1.6-2.3 02/27/2007 2:20 PM CDT Andrew Richards MD CHEMISTRY ORDERABLES Edited Performing Organization Address [facility] Phone Number INTERFACE SYSTEM Refer to clinic/hospital [...] Primary documented in this encounter Care Teams Ironmolder Relationship Specialty Start Date End Date Charles Delgadillo MD [address], [place] [phone] PCP - General Family Practice 09/05/10 documented as of this encounter
--- OUTSIDE RECORDS SUMMARY | 2025-09-22 19:52 | XMS_ITS | Encounter Summary ---
Author Organization [facility] Address [address] [place] [address] Care Team Providers Care Molding Associate Name Role Phone Charles Delgadillo MD Primary Care Provider [phone] Encounter Details Date Type Department Care Team (Latest Contact Info) Description 02/27/2007 Outpatient Historical [facility] General and Trauma Surgery-[address] [place] [address] Marlo Haywood MD [address] [place] [address] [address] [place] [address] Follow-Up Examination, Following Unspecified Surgery (Primary Dx) Social History Tobacco Use Types Packs/Day Years Used Date Smoking Tobacco: Never Assessed Comments Unknown Sex and Gender Information Value Date Recorded Sex Assigned at Not on file 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
--- OUTSIDE RECORDS SUMMARY | 2025-09-22 19:52 | XMS_ITS | Encounter Summary ---
Author Organization [facility] Address [address] [place] [address] Care Team Providers Care Kinesiology Internship Name Role Phone Charles Delgadillo MD Primary Care Provider [phone] Encounter Details Date Type Department Care Team (Late st Contact Info) Description 01/12/2007 Inpatient Historical HIS IN BED Adeel Jenkins S, DO [address] [place] [address] Poisoning by Anticoagulants (Primary Dx) Social History Tobacco Use Types Packs/Day Years Used Date Smoking Tobacco: Never Assessed Comments Unknown Sex and Gender Information Value Date Recorded Sex Assigned at Not on file Legal Sex Female 5:59 AM [employer]UCLE[employer] Gender Identity Not on file Sexual [...] OF CARE TESTING Edited Performing Organization Address [facility] de Phone Number INTERFACE SYSTEM Refer [...] ORDERABLES COM Edit ed Performing Organization Address [facility] de Phone Number INTERFACE SYSTEM Refer [...] DO CHEMISTRY ORDERABLES Edited Performing Organization Address [facility] Phone Number INTERFACE SYSTEM Refer to clinic/hospital [...] DO HEMATOLOGY ORDERABLES Edited Performing Organization Address [facility] Phone Number INTERFACE SYSTEM Refer to clinic/hospital department * (ABNORMAL) POC GLUCOSE (01/20/2007 12:26 AM CDT) GLUCOSE POC 110(H) 60 - 100 mg/dL INTERFACE SYSTEM 01/20/2007 12:2 6 AM CDT us Adeel Jenkins DO POINT OF CARE TESTING Edited Performing Organization Address City/[facility] Phone Number INTERFACE SYSTEM Refer to clinic/hospital department * (ABNORMAL) POC GLUCOSE (01/19/2007 5:45 PM CDT) GLUCOSE POC 103(H) 60 - 100 mg/dL INTERFACE SYSTEM 01/19/2007 5:45 PM CDT us Adeel Jenkins DO POINT OF CARE TESTING Edited Performing Organization Address City/[facility] Co de Phone Number INTERFACE SYSTEM Refer to clinic/hospital department * POC GLUCOSE (01/19/2007 11:42 AM CDT) GLUCOSE POC 100 60 - 100 mg/dL INTERFACE SYSTEM 01/19/2007 11:4 2 AM CDT us Adeel Jenkins DO POINT OF CARE TESTING Edited Performing Organization Address [facility] Phone Number INTERFACE SYSTEM Refer to clinic/hospital department * (ABNORMAL) POC GLUCOSE (01/19/2007 5:43 AM CDT) GLUCOSE POC 110(H) 60 - 100 mg/dL INTERFACE SYSTEM 01/19/2007 5:43 AM CDT us Adeel Jenkins DO POINT OF CARE TESTING Edited Performing Organization Address [facility] Phone Number INTERFACE SYSTEM Refer to clinic/hospital department * (ABNORMAL) POC GLUCOSE (01/18/2007 11:59 PM CDT) GLUCOSE POC 130(H) 60 - 100 mg/dL INTERFACE SYSTEM COMMENT POC Follow Protocol INTERFACE SYSTEM 01/18/2007 11:5 9 PM CDT [employer] Adeel Jenkins DO POINT OF CARE TESTING Edited Performing Organization Address City/[facility] de Phone Number INTERFACE SYSTEM Refer to clinic/hospital department * (ABNORMAL) POC GLUCOSE (01/18/2007 7:06 PM CDT) GLUCOSE POC 135(H) 60 - 100 mg/dL INTERFACE SYSTEM COMMENT POC Follow Protocol INTERFACE SYSTEM 01/18/2007 7:06 PM CDT us Adeel Jenkins DO POINT OF CARE TESTING Edited Performing Organization Address [facility] de Phone Number INTERFACE SYSTEM Refer to clinic/hospital department * (ABNORMAL) POC GLUCOSE (01/18/2007 1:12 PM CDT) GLUCOSE POC 128(H) 60 - 100 mg/dL INTERFACE SYSTEM 01/18/2007 1:12 PM CDT Adeel Jenkins DO POINT OF CARE TESTING Edited Performing Organization Address [facility] de Phone Number INTERFACE SYSTEM Refer to clinic/hospital department * (ABNORMAL) POC GLUCOSE (01/18/2007 5:48 AM CDT) GLUCOSE POC 115(H) 60 - 100 mg/dL INTERFACE SYSTEM 01/18/2007 5:48 AM CDT us Adeel Jenkins DO POINT OF CARE TESTING Edited Performing Organization Address [facility] de Phone Number INTERFACE SYSTEM Refer [...] ORDERABLES COM Edit ed Performing Organization Address [facility] Phone Number INTERFACE SYSTEM Refer to clinic/hospital [...] Jenkins HEMATOLOGY ORDERABLES Edited Performing Organization Address [facility] Phone Number INTERFACE SYSTEM Refer to clinic/hospital [...] DO CHEMISTRY ORDERABLES Edited Performing Organization Address [facility] Phone Number INTERFACE SYSTEM Refer to clinic/hospital department * (ABNORMAL) POC GLUCOSE (01/18/2007 1:06 AM CDT) GLUCOSE POC 123(H) 60 - 100 mg/dL INTERFACE SYSTEM 01/18/2007 1:06 AM CDT us Adeel Jenkins DO POINT OF CARE TESTING Edited Performing Organization Address [facility] Phone Number INTERFACE SYSTEM Refer to clinic/hospital department * (ABNORMAL) POC GLUCOSE (01/17/2007 5:41 PM CDT) GLUCOSE POC 118(H) 60 - 100 mg/dL INTERFACE SYSTEM 01/17/2007 5:41 PM CDT us Adeel Jenkins DO POINT OF CARE TESTING Edited Performing Organization Address [facility] Phone Number INTERFACE SYSTEM Refer to clinic/hospital department * (ABNORMAL) POC GLUCOSE (01/17/2007 11:44 AM CDT) GLUCOSE POC 112(H) 60 - 100 mg/dL INTERFACE SYSTEM 01/17/2007 11:4 4 AM CDT us Adeel Jenkins DO POINT OF CARE TESTING Edited Performing Organization Address [facility] Phone Number INTERFACE SYSTEM Refer to clinic/hospital department * (ABNORMAL) POC GLUCOSE (01/17/2007 5:40 AM CDT) GLUCOSE POC 125(H) 60 - 100 mg/dL INTERFACE SYSTEM 01/17/2007 5:40 AM CDT us Adeel Jenkins DO POINT OF CARE TESTING Edited Performing Organization Address [facility] de Phone Number INTERFACE SYSTEM Refer [...] mOsm/Kg INTERFACE SYSTEM 01/17/2007 2:53 AM CDT [employer] DO CHEMISTRY ORDERABLES Edited Performing Organization Address [facility] de Phone Number INTERFACE SYSTEM Refer to clinic/hospital department * (ABNORMAL) DIFFERENTIAL, MANUAL (01/17/2007 2:53 AM CDT) Pathologist [facility] NEUTROPHILS, SEG 54 36 - 66 % [...] INTERFAC E SYSTEM 01/17/2007 2:53 AM CDT [employer] DO HEMATOLOGY ORDERABLES COM Edit ed Performing Organization Address [facility] Co de Phone Number [...] SYSTEM 01/17/2007 2:53 AM CDT us Adeel Jenknis DO HEMATOLOGY ORDERABLES Edited Performing Organization Address [facility] Phone Number INTERFACE SYSTEM Refer to clinic/hospital department * (ABNORMAL) POC GLUCOSE (01/16/2007 11:40 PM CDT) GLUCOSE POC 134(H) 60 - 100 mg/dL INTERFACE SYSTEM 01/16/2007 11:4 0 PM CDT us Adeel Jenkins DO POINT OF CARE TESTING Edited Performing Organization Address City/[facility] de Phone Number INTERFACE SYSTEM Refer to clinic/hospital department * (ABNORMAL) POC GLUCOSE (01/16/2007 5:53 PM CDT) GLUCOSE POC 101(H) 60 - 100 mg/dL INTERFACE SYSTEM 01/16/2007 5:53 PM CDT us Adeel Jenkins DO POINT OF CARE TESTING Edited Performing Organization Address City/[facility] de Phone Number INTERFACE SYSTEM Refer to clinic/hospital department * (ABNORMAL) POC GLUCOSE (01/16/2007 11:48 AM CDT) GLUCOSE POC 136(H) 60 - 100 mg/dL INTERFACE SYSTEM 01/16/2007 11:4 8 AM CDT Adeel Jenkins DO POINT OF CARE TESTING Edited Performing Organization Address [facility] Phone Number INTERFACE SYSTEM Refer to clinic/hospital [...] DO CHEMISTRY ORDERABLES Edited Performing Organization Address [facility] Phone Number INTERFACE SYSTEM Refer to clinic/hospital [...] DO HEMATOLOGY ORDERABLES Edited Performing Organization Address City/[facility]/ZIP Co de Phone Number INTERFACE SYSTEM Refer [...] OF CARE TESTING Edited Performing Organization Address [facility] Phone Number INTERFACE SYSTEM Refer to clinic/hospital [...] DO CHEMISTRY ORDERABLES Edited Performing Organization Address [facility] Phone Number INTERFACE SYSTEM Refer to clinic/hospital department * (ABNORMAL) BRAIN NATRIURETIC PEPTIDE, BNP OR PROBNP (01/15/2007 2:02 PM CDT) Pathologist [facility] BRAIN NATRIURETIC PEPTIDE 298(H) 0 - 125 pg/mL INTERFACE SYSTEM 01/15/2007 2:02 PM CDT [employer] Adeel Esvin Gregory VASQUEZ CHEMISTRY ORDERABLES Edited Performing Organization Address [facility] Phone Number INTERFACE SYSTEM Refer to clinic/hospital department * (ABNORMAL) HEMOGLOBIN AND HEMATOCRIT (01/15/2007 2:02 PM CDT) Pathologist [facility] HEMOGLOBIN 9.3(L) 12.0 - 16.0 g/dL INTERFACE SYSTEM HEMATOCRIT 28.1(L) 36.0 - 46.0 % INTERFACE SYSTEM 01/15/2007 2:02 PM CDT Adeel Jenkins DO HEMATOLOGY ORDERABLES Edited Performing Organization Address [facility] de Phone Number INTERFACE SYSTEM Refer to clinic/hospital department * (ABNORMAL) POC GLUCOSE (01/15/2007 12:39 PM CDT) GLUCOSE POC 110(H) 60 - 100 mg/dL INTERFACE SYSTEM 01/15/2007 12:3 9 PM CDT Adeel Jenkins DO POINT OF CARE TESTING Edited Performing Organization Address [facility] de Phone Number INTERFACE SYSTEM Refer [...] DO HEMATOLOGY ORDERABLES Edited Performing Organization Address City/[facility] Co de Phone Number INTERFACE SYSTEM Refer to clinic/hospital department * PHOSPHORUS (01/15/2007 3:16 AM CDT) PHOSPHORUS 3.1 2.5 - 4.6 mg/dL INTERFACE SYSTEM 01/15/2007 3:16 AM CDT Adeel Jenkins DO CHEMISTRY ORDERABLES Edited Performing Organization Address City/State/[facility] Co de Phone Number INTERFACE SYSTEM Refer to clinic/hospital department * MAGNESIUM LEVEL (01/15/2007 3:16 AM CDT) MAGNESIUM 2.1 1.7 - 2.4 mg/dL INTERFACE SYSTEM Comment: The new reference range is 1.7-2.4 The old referance range was 1.6-2.3 01/15/2007 3:16 AM CDT us Adeel Jenkins CHEMISTRY ORDERABLES Edited Performing Organization Address [facility] Phone Number INTERFACE SYSTEM Refer to clinic/hospital [...] VASQUEZ CHEMISTRY ORDERABLES Edited Performing Organization Address [facility] Phone Number INTERFACE SYSTEM Refer to clinic/hospital department * (ABNORMAL) POC GLUCOSE (01/14/2007 11:30 PM CDT) GLUCOSE POC 113(H) 60 - 100 mg/dL INTERFACE SYSTEM 01/14/2007 11:3 0 PM CDT Adeel Esvin Gregory VASQUEZ POINT OF CARE TESTING Edited Performing Organization Address [facility] Phone Number INTERFACE SYSTEM Refer to clinic/hospital department * POTASSIUM LEVEL (01/14/2007 9:06 PM CDT) POTASSIUM 3.5 3.5 - 5.0 mEq/L INTERFACE SYSTEM 01/14/2007 9:06 PM CDT Adeel Esvin EatonGregoryana VASQUEZ CHEMISTRY ORDERABLES Edited Performing Organization Address [facility] Phone Number INTERFACE SYSTEM Refer to clinic/hospital department * (ABNORMAL) HEMOGLOBIN AND HEMATOCRIT (01/14/2007 9:06 PM CDT) HEMOGLOBIN 9.0(L) 12.0 - 16.0 g/dL INTERFACE SYSTEM HEMATOCRIT 26.7(L) 36.0 - 46.0 % INTERFACE SYSTEM 01/14/2007 9:06 PM CDT Adeel Jenkins DO HEMATOLOGY ORDERABLES Edited Performing Organization Address [facility] de Phone Number INTERFACE SYSTEM Refer to clinic/hospital department * (ABNORMAL) POC GLUCOSE (01/14/2007 5:48 PM CDT) GLUCOSE POC 110(H) 60 - 100 mg/dL INTERFACE SYSTEM 01/14/2007 5:48 PM CDT Adeel Jenkins DO POINT OF CARE TESTING Edited Performing Organization Address [facility] Phone Number INTERFACE SYSTEM Refer to clinic/hospital department * (ABNORMAL) HEMOGLOBIN AND HEMATOCRIT (01/14/2007 3:09 PM CDT) HEMOGLOBIN 9.2(L) 12.0 - 16.0 g/dL INTERFACE SYSTEM HEMATOCRIT 27.4(L) 36.0 - 46.0 % INTERFACE SYSTEM 01/14/2007 3:09 PM CDT Adeel Esvin EatonGregoryana VASQUEZ HEMATOLOGY ORDERABLES Edited Performing Organization Address [facility] Phone Number INTERFACE SYSTEM Refer to clinic/hospital [...] mOsm/Kg INTERFACE SYSTEM 01/14/2007 3:09 PM CDT [employer] DO CHEMISTRY ORDERABLES Edited Performing Organization Address City/[facility]/ZIP Co de Phone Number INTERFACE SYSTEM Refer to clinic/hospital department * (ABNORMAL) POC GLUCOSE (01/14/2007 12:06 PM CDT) GLUCOSE POC 106(H) 60 - 100 mg/dL INTERFACE SYSTEM 01/14/2007 12:0 6 PM CDT Adeel Jenkins DO POINT OF CARE TESTING Edited Performing Organization Address [facility] de Phone Number INTERFACE SYSTEM Refer [...] TESTING COM Edit ed Performing Organization Address City/State/[facility] [...] OF CARE TESTING Edited Performing Organization Address [facility] Phone Number INTERFACE SYSTEM Refer to clinic/hospital [...] DO HEMATOLOGY ORDERABLES Edited Performing Organization Address [facility] Phone Number INTERFACE SYSTEM Refer to clinic/hospital [...] DO HEMATOLOGY ORDERABLES Edited Performing Organization Address City/[facility] Co de Phone Number [...] DO CHEMISTRY ORDERABLES Edited Performing Organization Address [facility] Phone Number INTERFACE SYSTEM Refer to clinic/hospital [...] VASQUEZ CHEMISTRY ORDERABLES Edited Performing Organization Address [facility] Phone Number INTERFACE SYSTEM Refer to clinic/hospital department * (ABNORMAL) POC GLUCOSE (01/13/2007 11:18 PM CDT) GLUCOSE POC 110(H) 60 - 100 mg/dL INTERFACE SYSTEM 01/13/2007 11:1 8 PM CDT Adeel Eatonana VASQUEZ POINT OF CARE TESTING Edited Performing Organization Address [facility] Phone Number INTERFACE SYSTEM Refer to clinic/hospital [...] DO HEMATOLOGY ORDERABLES Edited Performing Organization Address City/[facility] de Phone Number INTERFACE SYSTEM Refer to clinic/hospital department * (ABNORMAL) POC GLUCOSE (01/13/2007 5:22 PM CDT) GLUCOSE POC 107(H) 60 - 100 mg/dL INTERFACE SYSTEM 01/13/2007 5:22 PM CDT Adeel Jenkins DO POINT OF CARE TESTING Edited Performing Organization Address [facility] de Phone Number INTERFACE SYSTEM Refer [...] TESTING COM Edit ed Performing Organization Address [facility] Phone Number INTERFACE SYSTEM Refer to clinic/hospital [...] DO HEMATOLOGY ORDERABLES Edited Performing Organization Address [facility] Phone Number INTERFACE SYSTEM Refer to clinic/hospital [...] Diff INTERFACE SYSTEM 01/13/2007 2:32 PM CDT [employer] HEMATOLOGY ORDERABLES Edited Performing Organization Address [facility] Phone Number INTERFACE SYSTEM Refer to clinic/hospital department * (ABNORMAL) POC GLUCOSE (01/13/2007 1:16 PM CDT) GLUCOSE POC 106(H) 60 - 100 mg/dL INTERFACE SYSTEM 01/13/2007 1:16 PM CDT [employer] DO POINT OF CARE TESTING Edited Performing Organization Address [facility] Phone Number INTERFACE SYSTEM Refer to clinic/hospital department * (ABNORMAL) HEMOGLOBIN AND HEMATOCRIT (01/13/2007 7:45 AM CDT) HEMOGLOBIN 9.9(L) 12.0 - 16.0 g/dL INTERFACE SYSTEM HEMATOCRIT 28.7(L) 36.0 - 46.0 % INTERFACE SYSTEM 01/13/2007 7:45 AM CDT [employer] DO HEMATOLOGY ORDERABLES Edited Performing Organization Address [facility] de Phone Number INTERFACE SYSTEM Refer [...] TESTING COM Edit ed Performing Organization Address [facility] Co de Phone Number [...] Gregory HEMATOLOGY ORDERABLES Edited Performing Organization Address [facility] Phone Number INTERFACE SYSTEM Refer to clinic/hospital [...] DO CHEMISTRY ORDERABLES Edited Performing Organization Address [facility] Phone Number INTERFACE SYSTEM Refer to clinic/hospital [...] DO HEMATOLOGY ORDERABLES Edited Performing Organization Address City/[facility] Co de Phone Number [...] DO ABG ORDERABLES Edited Performing Organization Address [facility] de Phone Number INTERFACE SYSTEM Refer [...] TESTING COM Edit ed Performing Organization Address City/[facility] de Phone Number INTERFACE SYSTEM Refer to clinic/hospital department * (ABNORMAL) PLATELET COUNT (01/13/2007 12:30 AM CDT) PLATELETS 67(L) 140 - 440 K/ul INTERFACE SYSTEM 01/13/2007 12:3 0 AM CDT Adeel Jenkins DO HEMATOLOGY ORDERABLES Edited Performing Organization Address City/[facility] de Phone Number INTERFACE SYSTEM Refer [...] DO HEMATOLOGY ORDERABLES Edited Performing Organization Address [facility] Phone Number INTERFACE SYSTEM Refer to clinic/hospital department * (ABNORMAL) HEMOGLOBIN AND HEMATOCRIT (01/13/2007 12:30 AM CDT) HEMOGLOBIN 9.0(L) 12.0 - 16.0 g/dL INTERFACE SYSTEM HEMATOCRIT 25.9(L) 36.0 - 46.0 % INTERFACE SYSTEM 01/13/2007 12:3 0 AM CDT Adeel Eatonson DO HEMATOLOGY ORDERABLES Edited Performing Organization Address [facility] Phone Number INTERFACE SYSTEM Refer to clinic/hospital department * CK TOTAL, RELATIVE INDEX (01/13/2007 12:30 AM CDT) CK-MB CHEMICAL INDEX 3.7 0.0 - 4.5 INTERFACE SYSTEM 01/13/2007 12:3 0 AM CDT Gracia Hayes MD CHEMISTRY ORDERABLES Edite d Performing Organization Address [facility] Phone Number INTERFACE SYSTEM Refer to clinic/hospital department * (ABNORMAL) CK (01/13/2007 12:30 AM CDT) CK 656(H) 26 - 140 U/L INTERFACE SYSTEM Comment: As of 05 the [facility] has changed testing methods. The new reference ranges are Males 38-174 Females 26-140 The old referance ranges were Males 0-155 Females 0-133 01/13/2007 12:3 0 AM CDT Gracia Hayes MD CHEMISTRY ORDERABLES Edite d Performing Organization Address City/[facility] Phone Number INTERFACE SYSTEM Refer to clinic/hospital department * (ABNORMAL) CARDIAC ENZYMES (01/13/2007 12:30 AM CDT) TROPONIN I 0.6 0.0 - 1.5 ng/mL INTERFACE SYSTEM CKMB 24.0(H) 0.0 - 5.0 ng/mL INTERFACE SYSTEM 01/13/2007 12:3 0 AM CDT Gracia Hayes MD CHEMISTRY ORDERABLES Edite d Performing Organization Address [facility] Phone Number INTERFACE SYSTEM Refer to clinic/hospital [...] ORDERABLES COM Edit ed Performing Organization Address [facility] Phone Number INTERFACE SYSTEM Refer to clinic/hospital [...] DO HEMATOLOGY ORDERABLES Edited Performing Organization Address City/[facility] Co de Phone Number [...] TESTING COM Edit ed Performing Organization Address City/[facility]/ZIP Co de Phone Number INTERFACE SYSTEM Refer [...] APTT Normal Range. 01/12/2007 6:55 PM CDT [facility] Esvin Gregory HEMATOLOGY ORDERABLES Edited Performing Organization Address [facility] Phone Number INTERFACE SYSTEM Refer to clinic/hospital [...] Tellez Pharm D. 01/12/2007 6:55 PM CDT [facility] Esvin Gregory HEMATOLOGY ORDERABLES Edited Performing Organization Address [facility] Phone Number INTERFACE SYSTEM Refer to clinic/hospital [...] Diff INTERFACE SYSTEM 01/12/2007 6:55 PM CDT [employer] DO HEMATOLOGY ORDERABLES Edited Performing Organization Address City/State/[facility] [...] DO CHEMISTRY ORDERABLES Edited Performing Organization Address City/[facility] de Phone Number INTERFACE SYSTEM Refer to clinic/hospital department * (ABNORMAL) CK TOTAL, RELATIVE INDEX (01/12/2007 6:55 PM CDT) CK-MB CHEMICAL INDEX 4.6(H) 0.0 - 4.5 INTERFACE SYSTEM 01/12/2007 6:55 PM CDT us Gracia Hayes MD CHEMISTRY ORDERABLES Edite d Performing Organization Address [facility] Phone Number INTERFACE SYSTEM Refer to clinic/hospital department * (ABNORMAL) CK (01/12/2007 6:55 PM CDT) CK 396(H) 26 - 140 U/L INTERFACE SYSTEM Comment: As of 05 the [facility] has changed testing methods. The new reference ranges are Males 38-174 Females 26-140 The old referance ranges were Males 0-155 Females 0-133 01/12/2007 6:55 PM CDT us Gracia Hayes MD CHEMISTRY ORDERABLES Edite d Performing Organization Address [facility] Phone Number INTERFACE SYSTEM Refer to clinic/hospital department * (ABNORMAL) CARDIAC ENZYMES (01/12/2007 6:55 PM CDT) TROPONIN I 0.6 0.0 - 1.5 ng/mL INTERFACE SYSTEM CKMB 18.1(H) 0.0 - 5.0 ng/mL INTERFACE SYSTEM 01/12/2007 6:55 PM CDT us Gracia Hayes MD CHEMISTRY ORDERABLES Edite d Performing Organization Address [facility] Phone Number INTERFACE SYSTEM Refer to clinic/hospital [...] DO HEMATOLOGY ORDERABLES Edited Performing Organization Address [facility] Phone Number INTERFACE SYSTEM Refer to clinic/hospital department * (ABNORMAL) URINALYSIS MICROSCOPY ONLY (01/12/2007 4:03 PM CDT) WBC URINE 0-2 0 - 2 INTERFACE SYSTEM RBC UA 0-2 0 - 2 INTERFACE SYSTEM HYALINE CAST 0-2 0 - 2 INTERFA CE SYSTEM BACTERIA UA Few(A) None Seen INTERFAC E SYSTEM 01/12/2007 4:03 PM CDT Adeel Jenkins DO URINE ORDERABLES Edited Performing Organization Address [facility] Phone Number INTERFACE SYSTEM Refer to clinic/hospital [...] DO URINE ORDERABLES Edited Performing Organization Address [facility] de Phone Number INTERFACE SYSTEM Refer [...] APTT Normal Range. 01/12/2007 3:58 PM CDT [facility] Esvin Gregory HEMATOLOGY ORDERABLES Edited Performing Organization Address [facility] de Phone Number INTERFACE SYSTEM Refer [...] pharmacy Johanny Frank. 01/12/2007 3:58 PM CDT [facility] Esvin Gregory HEMATOLOGY ORDERABLES Edited Performing Organization Address [facility] de Phone Number INTERFACE SYSTEM Refer [...] DO CHEMISTRY ORDERABLES Edited Performing Organization Address City/[facility] de Phone Number INTERFACE SYSTEM Refer [...] DO HEMATOLOGY ORDERABLES Edited Performing Organization Address [facility] Co de Phone Number [...] INTERF KRAIG SYSTEM 01/12/2007 2:34 PM CDT [employer] HEMATOLOGY ORDERABLES COM Edit ed INTERFACE SYSTEM [...] Fl INTERFACE SYSTEM 01/12/2007 2:34 PM CDT [employer] HEMATOLOGY ORDERABLES Edited Performing Organization Address City/[facility]/ZIP Co de Phone Number INTERFACE SYSTEM Refer to clinic/hospital department * XR FOOT 3+ VW LEFT (01/12/2007 11:26 AM CDT) Anatomical Region Laterality Modality Ankle / Foot Other 01/12/2007 11:2 6 AM CDT Narrative 01/12/2007 11:26 AM CDT Exam: Foot - Left ([id number])Date/Time of Exam: Jan 15, 2007 12:05:13 PMIndication: [...] Procedure Note 08/13/2009 Exam: Foot - Left ([id number])Date/Time of Exam: Jan 15, 2007 12:05:13 PMIndication: [...] 11:26 AM CDT Exam: Chest - Portable ([id number])Date/Time of Exam: Jan 13, 2007 3:58:28 AMIndication: [...] Procedure Note 08/13/2009 Exam: Chest - Portable ([id number])Date/Time of Exam: Jan 13, 2007 3:58:28 AMIndication: [...] 11:26 AM CDT EXAM: CHEST - PORTABLE ([id number])DATE/TIME OF EXAM: January 12, 2007 11:20:03 AMINDICATION: [...] Procedure Note 08/13/2009 EXAM: CHEST - PORTABLE ([id number])DATE/TIME OF EXAM: January 12, 2007 11:20:03 AMINDICATION: [...] CHEMISTRY ORDERABLES Edite d Performing Organization Address City/[facility] Co de Phone Number [...] HEMATOLOGY ORDERABLES Edit ed Performing Organization Address City/[facility] de Phone Number INTERFACE SYSTEM Refer [...] POC CREATININE (01/12/2007 11:01 AM CDT) Pathologist [facility] CREATININE POC 1.2 0.7 - 1.2 mg/dL [...] OF CARE TESTING Edited Performing Organization Address City/State/[facility] Co de Phone Number INTERFACE SYSTEM Refer to clinic/hospital department documented in this encounter Visit Diagnoses Diagnosis Poisoning by anticoagulants(964.2)- Primary Poisoning by anticoagulants documented in this encounter Care Teams Kinesiology Internship Relationship Specialty Start Date End Date Charles Delgadillo MD [address] [place] [phone] PCP - General Family Practice 09/05/10 documented as of this encounter
--- OUTSIDE RECORDS SUMMARY | 2025-09-22 19:52 | XMS_ITS | Encounter Summary ---
Author Organization [facility] Address [address] [place] [address] Care Team Providers Care Transition Coach Name Role Phone Charles Delgadillo MD Primary Care Provider [phone] Encounter Details Date Type Department Care Team (Latest Contact Info) Description 03/12/2007 Outpatient Historical [facility] General and Trauma Surgery-[address] [place] [address] Graham Wadsworth MD [address] [place] [address] Follow-Up Examination, Following Unspecified Surgery (Primary Dx) Social History Tobacco Use Types Packs/Day Years Used Date Smoking Tobacco: Never Assessed Comments Unknown Sex and Gender Information Value Date Recorded Sex Assigned at Not on file Legal 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
--- OUTSIDE RECORDS SUMMARY | 2025-09-22 19:52 | XMS_ITS | Encounter Summary ---
Author Organization [facility] Address [address] [place] [address] Care Team Providers Care Power Supply Engineer Name Role Phone Charles Delgadillo MD Primary Care Provider [phone] Encounter Details Date Type Department Care Team (Latest Contact Info) Description 03/12/2007 Outpatient Historical [facility] Imaging Services-[facility] [address] [place] [address] Fernando Jay, Paul Swain MD [address] [facility] [address] [place] [address] Follow-Up Examination, Following Other Surgery (Primary Dx) Social History Tobacco Use Types Packs/Day Years Used Date Smoking Tobacco: Never Assessed Comments Unknown Sex and Gender Information Value Date Recorded Sex Assigned at Not on file Legal Sex Female 5:59 AM PRODUCT MERCHANDISER Gender Identity Not on file Sexual Orientation Not on file documented as of this encounter Plan of Treatment Not on file documented as of this encounter Visit Diagnoses Diagnosis Follow-up examination, following other surgery- Primary documented in this encounter Care Teams Power Supply Engineer Relationship Specialty Start Date End Date Charles Delgadillo MD [address] [place] [address] PCP - General Family Practice 09/05/10 documented as of this encounter
--- OUTSIDE RECORDS SUMMARY | 2025-09-22 19:52 | XMS_ITS | Encounter Summary ---
Author Organization [facility] Address [address] [place] [address] Care Team Providers Care Residential Care Facility Manager Name Role Phone Charles Delgadillo MD Primary Care Provider [phone] Encounter Details Date Type Department Care Team (Latest Contact Info) Description 04/29/2007 Outpatient Historical [facility] Orthopedic Sports Medicine-[facility] [address] [place] [address] Melvin Nunez MD NO ADDRESS ON FILE Unspecified Site of Ankle Sprain and Strain (Primary Dx) Social History Tobacco Use Types Packs/Day Years Used Date Smoking Tobacco: Never Assessed Comments Unknown Sex and Gender Information Value Date Recorded Sex Assigned at Not on file Legal Sex Female 5:59 AM SERVICE MEMBER Gender Identity Not on file Sexual Orientation Not on file documented as of this encounter Plan of Treatment Not on file documented as of this encounter Visit Diagnoses Diagnosis Sprain of ankle, unspecified site- Primary documented in this encounter Care Teams Residential Care Facility Manager Relationship Specialty Start Date End Date Charles Delgadillo MD [address], [place] [address] PCP - General Family Practice 09/05/10 documented as of this encounter
--- OUTSIDE RECORDS SUMMARY | 2025-09-22 19:53 | XMS_ITS | Encounter Summary ---
Author Organization [facility] Address [address] [place] [address] Care Team Providers Care Gamma Facilities Operator Name Role Phone Charles Delgadillo MD Primary Care Provider [phone] Encounter Details Date Type Department Care Team (Late st Contact Info) Description 09/27/2008 Emergency [facility] Emergency Department [address] 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 file Not on file Not on file disabled Not on file Not on file Not on file documented as of this encounter Plan of Treatment Not on file documented as of this encounter Procedures Procedure Name Priority Date/Time Associated Diagnosis Comments CT ABDOMEN PELVIS W CONTRAST Routine 09/27/2008 7:18 PM RN TRAVELING URINALYSIS MICROSCOPY ONLY Stat 09/27/2008 6:11 PM RN TRAVELING URINALYSIS W/REFLEX MICROSCOPIC Stat 09/27/2008 6:11 PM RN TRAVELING DIFFERENTIAL, MANUAL Stat 09/27/2008 5:37 PM RN TRAVELING CBC WITH DIFFERENTIAL Stat 09/27/2008 5:37 PM RN TRAVELING LIPASE Stat 09/27/2008 5:37 PM RN TRAVELING COMPREHENSIVE METABOLIC PANEL Stat 09/27/2008 5:37 PM RN TRAVELING documented in this encounter Results * CT ABDOMEN PELVIS W CONTRAST (09/27/2008 7:18 PM RN TRAVELING) Anatomical Region Laterality Modality Abdomen Other 09/27/2008 7:18 PM RN TRAVELING Narrative 09/27/2008 8:[address] of the abdomen and pelvis was [...] (ABNORMAL) URINALYSIS MICROSCOPY ONLY (09/27/2008 6:11 PM RN TRAVELING) HYALINE CAST None Seen 0 - 2 [facility] BACTERIA UA Few(A) None Seen [facility] WBC URINE 0-2 0 - 2 [facility] RBC UA 0-2 0 - 2 [facility] Urine specimen (specimen) 09/27/2008 6:11 PM RN TRAVELING 09/27/2008 6:16 PM RN TRAVELING Olu Barrett DO URINE ORDERABLES Final Result Performing Organization Address [facility] Phone Number INTERFACE SYSTEM Refer to clinic/hospital department [facility] CLIA# [id number] [address] [place] [address] * (ABNORMAL) URINALYSIS (09/27/2008 6:11 PM RN TRAVELING) NITRITE UA NEGATIVE NEGATIVE [facility] UROBILINOGEN UA 0.2 0.2 [facility] CLARITY UA Clear Clear [facility] SPECIFIC GRAVITY UA 1.025 <=1.005 [facility] GLUCOSE UA NEGATIVE NEGATIVE [facility] PH UA 5.5 5.0 - 9.0 [facility] BILIRUBIN UA NEGATIVE NEGATIVE [facility] LEUKOCYTE ESTERASE UA NEGATIVE NEGATIVE [facility] KETONES UA 15 mg/dl(A) NEGATIVE [facility] MICRO EXAM Yes(A) No [facility] COLOR UA Yellow Straw [facility] PROTEIN UA NEGATIVE NEGATIVE [facility] BLOOD UA NEGATIVE NEGATIVE [facility] Urine specimen (specimen) 09/27/2008 6:11 PM RN TRAVELING 09/27/2008 6:16 PM RN TRAVELING Olu Barrett DO URINE ORDERABLES Final Result Performing Organization Address [facility] de Phone Number INTERFACE SYSTEM Refer to clinic/hospital department [facility] CLIA# [id number] [address] [place] [address] * (ABNORMAL) DIFFERENTIAL, MANUAL (09/27/2008 5:37 PM RN TRAVELING) ANISOCYTOSIS 1+(A) None Seen [facility] ATYPICAL LYMPHOCYTE 15(H) <=0 % [facility] Comment: REACTIVE LYMPHS PLATELET EST. Increased (A) Normal [facility] MONOCYTE 5 4 - 10 % [facility] BANDS 1 0 - 6 % [facility] RBC MORPHOLOGY Abnormal( A) Normal [facility] LYMPHOCYTES 31 24 - 44 % [facility] EOSINOPHILS 1 0 - 3 % [facility] NEUTROPHILS, SEG 47 36 - 66 % [facility] Blood specimen (specimen) 09/27/2008 5:37 PM RN TRAVELING 09/27/2008 5:51 PM RN TRAVELING Narrative INTERFACE SYSTEM - 09/27/2008 6:55 PM RN TRAVELING Differential ordered by policy. Olu Barrett DO HEMATOLOGY ORDERABLES C OM Final Result INTERFACE SYSTEM Refer to clinic/hospital department [facility] CLIA# [id number] [address] [place] [address] * (ABNORMAL) CBC WITH DIFFERENTIAL (09/27/2008 5:37 PM RN TRAVELING) RBC 5.20 4.20 - 5.40 Mil/ul [facility] MCHC 33.9 30.0 - 35.0 g/dL [facility] MCV 89.0 84.0 - 103.0 Fl [facility] MPV 9.7 8.9 - 12.8 Fl [facility] HEM COMMENT Smear Reviewed Automated Diff [facility] Comment: If lymphocytosis is persistent, suggest flow on blood. Interpreted by: Jumana Mejia HEMOGLOBIN 15.7 12.0 - 16.0 g/dL [facility] RDW 14.6(H) 11.0 - 14.5 % [facility] WBC 14.2(H) 4.8 - 10.8 K/ul [facility] MCH 30.2 27.0 - 34.0 pg [facility] HEMATOCRIT 46.3(H) 36.0 - 46.0 % [facility] PLATELETS 559(H) 140 - 440 K/ul [facility] Blood specimen (specimen) 09/27/2008 5:37 PM RN TRAVELING 09/27/2008 5:51 PM RN TRAVELING Olu Barrett DO HEMATOLOGY ORDERABLES E dited Performing Organization Address [facility] Phone Number INTERFACE SYSTEM Refer to clinic/hospital department [facility] CLIA# [id number] [address] [place] [address] * LIPASE (09/27/2008 5:37 PM RN TRAVELING) [facility] LIPASE 36 6 - 51 U/L [facility] Blood specimen (specimen) 09/27/2008 5:37 PM RN TRAVELING 09/27/2008 5:51 PM RN TRAVELING Olu Barrett DO CHEMISTRY ORDERABLES Fi nal Result Performing Organization Address [facility] Phone Number INTERFACE SYSTEM Refer to clinic/hospital department [facility] CLIA# [id number] [facility] [place] [address] * (ABNORMAL) COMPREHENSIVE METABOLIC PANEL (09/27/2008 5:37 PM RN TRAVELING) [facility] ANION GAP 14 9 - 20 mEq/L [facility] ALBUMIN 5.4(H) 3.5 - 5.0 g/dL [facility] CREATININE 1.1 0.7 - 1.2 mg/dL [facility] ALT 45(H) 4 - 36 IU/L [facility] CALCIUM 10.6(H) 8.4 - 10.5 mg/dL [facility] GLUCOSE 107 70 - 110 mg/dL [facility] ALKALINE PHOSPHATASE 92 25 - 100 U/L [facility] CHLORIDE 108 95 - 110 mEq/L [facility] OSMOLALITY, CALCULATED 296(H) 275 - 295 mOsm/Kg [facility] GLOBULIN (CALC) 3.3 2.4 - 3.9 g/dL [facility] TOTAL PROTEIN 8.7(H) 6.3 - 8.2 g/dL [facility] SODIUM 143 136 - 145 mEq/L [facility] BILIRUBIN TOTAL 0.3 0.3 - 1.2 mg/dL [facility] CO2 25 22 - 32 mmol/l [facility] BUN 20(H) 7 - 17 mg/dL [facility] AST 39(H) 8 - 33 U/L [facility] ALBUMIN/GLOBULIN RATIO 1.6 1.0 - 2.3 [facility] POTASSIUM 3.6 3.5 - 5.0 mEq/L [facility] Blood specimen (specimen) 09/27/2008 5:37 PM RN TRAVELING 09/27/2008 5:51 PM RN TRAVELING Olu Barrett DO CHEMISTRY ORDERABLES Fi nal Result INTERFACE SYSTEM Refer to clinic/hospital department [facility] CLIA# [id number] [address] [place] [address] documented in this encounter Visit Diagnoses Not on filedocumented in this encounter Care Teams Gamma Facilities Operator Relationship Specialty Start Date End Date Charles Delgadillo MD [address] [place] [address] PCP - General Family Practice 09/05/10 documented as of this encounter
--- OUTSIDE RECORDS SUMMARY | 2025-09-22 19:53 | XMS_ITS | Encounter Summary ---
Author Organization [facility] Address [address] [place] [address] Care Team Providers Care Independent Living Advisor Name Role Phone Charles Delgadillo MD Primary Care Provider Encounter Details Date Type Department Care Team (Late st Contact Info) Description 10/30/2007 Outpatient Historical [facility] [address] [place] [address] Antonio Lopez MD [address] [place] [address] Social History Tobacco Use Types Packs/Day Years Used Date Smoking Tobacco: Never Assessed Comments Unknown Sex and Gender Information Value Date Recorded Sex Assigned at Not on file Legal Sex Female 5:59 AM EXTERIOR DESIGNER Gender Identity Not on file Sexual Orientation Not on file documented as of this encounter Plan of Treatment Not on file documented as of this encounter Procedures Procedure Name Priority Date/Time Associated Diagnosis Comments VITAMIN B12 LEVEL Routine 11/19/2007 10: 23 AM EXTERIOR DESIGNER CK Routine 11/19/2007 10:23 AM EXTERIOR DESIGNER HEPATIC FUNCTION PANEL Routine 11/19/2007 10:23 AM EXTERIOR DESIGNER documented in this encounter Results * VITAMIN B12 (11/19/2007 10:23 AM EXTERIOR DESIGNER) VITAMIN B12 865 >242 PG/ML [facility] VITAMIN B12 (NOTE) DEFICIENT [...] the normal range(usually less than 400 pg/ml). [facility] 11/19/2007 10:2 3 AM EXTERIOR DESIGNER 11/19/2007 10:24 AM EXTERIOR DESIGNER us Roz Capellan MD CHEMISTRY ORDERABLES Final Resu lt Performing Organization Address City/[facility]/ZIP Co de Phone Number [facility] CLIA# [id number] [address] [place] [address] * (ABNORMAL) HEPATIC FUNCTION PANEL (11/19/2007 10:23 AM EXTERIOR DESIGNER) TOTAL PROTEIN 7.1 5.9 - 8.2 G/DL [facility] ALBUMIN 4.6 3.4 - 4.8 G/DL [facility] AST 37(H) 12 - 32 IU/L [facility] ALT 72(H) 4 - 36 IU/L [facility] ALKALINE PHOSPHATASE 118(H) 35 - 104 IU/L [facility] BILIRUBIN TOTAL 0.2 0.2 - 1.0 MG/DL [facility] BILIRUBIN DIRECT <0.1 0.0 - 0.3 MG/DL [facility] 11/19/2007 10:2 3 AM EXTERIOR DESIGNER 11/19/2007 10:24 AM EXTERIOR DESIGNER us Roz Capelaln MD CHEMISTRY ORDERABLES Final Resu lt [facility] CLIA# [id number] [address] [place] [address] * (ABNORMAL) CK (11/19/2007 10:23 AM EXTERIOR DESIGNER) CK 178(H) 26 - 140 IU/L [facility] 11/19/2007 10:2 3 AM EXTERIOR DESIGNER 11/19/2007 10:24 AM EXTERIOR DESIGNER us Roz Capellan MD CHEMISTRY ORDERABLES Final Resu lt [facility] CLIA# [id number] [address] [place] [address] documented in this encounter Visit Diagnoses Not on filedocumented in this encounter Care Teams Independent Living Advisor Relationship Specialty Start Date End Date Charles Delgadillo MD [address] [place] [address] PCP - General Family Practice 09/05/10 documented as of this encounter
--- OUTSIDE RECORDS SUMMARY | 2025-09-22 19:53 | XMS_ITS | Encounter Summary ---
Author Organization [facility] Address [address] [place] [address] Care Team Providers Care Buildings Painter Name Role Phone Charles Delgadillo MD Primary Care Provider [phone] Encounter Details Date Type Department Care Team (Late st Contact Info) Description 10/28/2007 Outpatient [facility] [address] [phone] Antonio Lopez MD [address] [place] [address] Social History Tobacco Use Types Packs/Day Years Used Date Smoking Tobacco: Never Assessed Comments Unknown Sex and Gender Information Value Date Recorded Sex Assigned at Not on file Legal Sex Female 5:59 AM INTERNATIONAL TRADE TEACHER Gender Identity Not on file Sexual Orientation Not on file documented as of this encounter Plan of Treatment Not on file documented as of this encounter Visit Diagnoses Not on filedocumented in this encounter Care Teams Buildings Painter Relationship Specialty Start Date End Date Charles Delgadillo MD [address], [place] [address] PCP - General Family Practice 09/05/10 documented as of this encounter
--- OUTSIDE RECORDS SUMMARY | 2025-09-22 19:53 | XMS_ITS | Encounter Summary ---
Author Organization [facility] Address [address] [place] [address] Care Team Providers Care Gallery Manager Name Role Phone Charles Delgadillo MD Primary Care Provider [phone] Encounter Details Date Type Department Care Team (Latest Contact Info) Description 06/21/1998 Outpatient Historical [facility] Rheumatology- [facility] [address] [address] Myalgia and myositis, unspecified (Primary Dx); Sleep disturbance, unspecified Social History Tobacco Use Types Packs/Day Years Used Date Smoking Tobacco: Never Assessed Comments Unknown Sex and Gender Information Value Date Recorded Sex Assigned at Not on file Legal Sex Female 5:59 AM WASTE RECLAIMER Gender Identity Not on file Sexual Orientation Not on file documented as of this encounter Plan of Treatment Not on file documented as of this encounter Visit Diagnoses Diagnosis Myalgia and myositis, unspecified- Primary Mylagia and myositis, unspecified Sleep disturbance, unspecified documented in this encounter Care Teams Gallery Manager Relationship Specialty Start Date End Date Charles Delgadillo MD [address] [place] [address] PCP - General Family Practice 09/05/10 documented as of this encounter
--- OUTSIDE RECORDS SUMMARY | 2025-09-22 19:53 | XMS_ITS | Encounter Summary ---
Author Organization [facility] Address [address] [place] [address] Care Team Providers Care Weekend Caregiver Name Role Phone Charles Delgadillo MD Primary [...] on file Legal Sex Female 5:59 AM HOME IMPROVEMENT CONTRACTOR Gender Identity Not on file Sexual Orientation Not on file documented as of this encounter Plan of Treatment Not on file documented as of this encounter Visit Diagnoses Diagnosis Other joint derangement, not elsewhere classified, lower leg- Primary Cervical spondylosis Cervical spondylosis without myelopathy Follow-up examination following surgery documented in this encounter Care Teams Weekend Caregiver Relationship Specialty Start Date End Date Charles Delgadillo MD [address] [place] [phone] PCP - General Family Practice 09/05/10 documented as of this encounter
--- OUTSIDE RECORDS SUMMARY | 2025-09-22 19:53 | XMS_ITS | Encounter Summary ---
Author Organization [facility] Address [address] [place] [address] Care Team Providers Care Manager Sales Training Name Role Phone Charles Delgadillo MD Primary Care Provider [phone] Encounter Details Date Type Department Care Team (Latest Contact Info) Description 08/16/1998 Outpatient Historical [facility] Rheumatology- [facility] [address] [place] [address] Myalgia and myositis, unspecified (Primary Dx); Skin sensation disturb; Tension headache Social History Tobacco Use Types Packs/Day Years Used Date Smoking Tobacco: Never Assessed Comments Unknown Sex and Gender Information Value Date Recorded Sex Assigned at Not on file Legal Sex Female 5:59 AM COUNSELLORS Gender Identity Not on file Sexual Orientation Not on file documented as of this encounter Plan of Treatment Not on file documented as of this encounter Visit Diagnoses Diagnosis Myalgia and myositis, unspecified- Primary Mylagia and myositis, unspecified Skin sensation disturb Disturbance of skin sensation Tension headache documented in this encounter Care Teams Manager Sales Training Relationship Specialty Start Date End Date Charles Delgadillo MD [address] [place] [address] PCP - General Family Practice 09/05/10 documented as of this encounter
--- OUTSIDE RECORDS SUMMARY | 2025-09-22 19:53 | XMS_ITS | Encounter Summary ---
Author Organization [facility] Address [address] [place] [address] Care Team Providers Care Animal Physiology Teacher Name Role Phone Charles Delgadillo MD Primary Care Provider [phone] Encounter Details Date Type Department Care Team (Latest Contact Info) Description 12/12/1998 Outpatient [facility] Family Medicine [place] [address] [facility] [address] [place] [address] Thomas Anne MD [address] [address] Unspecified essential hypertension (Primary Dx); Acute upper respiratory infections of unspecified site Social History Tobacco Use Types Packs/Day Years Used Date Smoking Tobacco: Never Assessed Comments Unknown Sex and Gender Information Value Date Recorded Sex Assigned at Not on file Legal Sex Female 5:59 AM PROCESS IMPROVEMENT MANAGER Gender Identity Not on file Sexual Orientation Not on file documented as of this encounter Plan of Treatment Not on file documented as of this encounter Visit Diagnoses Diagnosis Unspecified essential hypertension- Primary Acute upper respiratory infections of unspecified site documented in this encounter Care Teams Animal Physiology Teacher Relationship Specialty Start Date End Date Charles Degladillo MD [address] [phone] PCP - General Family Practice 09/05/10 documented as of this encounter
--- OUTSIDE RECORDS SUMMARY | 2025-09-22 19:53 | XMS_ITS | Encounter Summary ---
Author Organization [facility] Address [address] [place] [address] Care Team Providers Care Patrol Community Service Officer Name Role Phone Charles Delgadillo MD Primary Care Provider [phone] Encounter Details Date Type Department Care Team (Latest Contact Info) Description 03/20/1999 Outpatient Historical [facility] Rheumatology- [facility] [address] [place] [phone] Myalgia and myositis, unspecified (Primary Dx); Sleep disturbance, unspecified Social History Tobacco Use Types Packs/Day Years Used Date Smoking Tobacco: Never Assessed Comments Unknown Sex and Gender Information Value Date Recorded Sex Assigned at Not on file Legal Sex Female 5:59 AM RUG CLIPPER Gender Identity Not on file Sexual Orientation Not on file documented as of this encounter Plan of Treatment Not on file documented as of this encounter Visit Diagnoses Diagnosis Myalgia and myositis, unspecified- Primary Mylagia and myositis, unspecified Sleep disturbance, unspecified documented in this encounter Care Teams Patrol Community Service Officer Relationship Specialty Start Date End Date Charles Delgadillo MD [address] [place] [address] PCP - General Family Practice 09/05/10 documented as of this encounter
--- OUTSIDE RECORDS SUMMARY | 2025-09-22 19:53 | XMS_ITS | Encounter Summary ---
Author Organization [facility] Address [address] [facility] Attn: Epic Prelude ADT [place] [address] Care Team Providers Care Junior Marketing Associate Name Role Phone Charles Delgadillo MD Primary Care Provider [phone] Encounter Details Date Type Department Care Team (Late st Contact Info) Description 03/27/2000 Outpatient Historical Tristen Aragon MD [address] [place] [address] Social History Tobacco Use Types Packs/Day Years Used Date Smoking Tobacco: Never Assessed Comments Unknown Sex and Gender Information Value Date Recorded Sex Assigned at Not on file Legal Sex Female 5:59 AM ATMOSPHERIC SCIENCES PROFESSOR Gender Identity Not on file Sexual Orientation Not on file documented as of this encounter Plan of Treatment Not on file documented as of this encounter Visit Diagnoses Not on filedocumented in this encounter Care Teams Junior Marketing Associate Relationship Specialty Start Date End Date Charles Delgadillo MD [address] [place] [address] PCP - General Family Practice 09/05/10 documented as of this encounter
--- OUTSIDE RECORDS SUMMARY | 2025-09-22 19:53 | XMS_ITS | Encounter Summary ---
Author Organization [facility] [facility] Address [address] [facility] [place] [address] Care Team Providers Care Standards Engineer Name Role Phone Charles Delgadillo MD Primary Care Provider [phone] Encounter Details Date Type Department Care Team (Latest Contact Info) Description 07/29/1998 Outpatient Historical [facility] Jamaal Diaz NO ADDRESS ON FILE Acute sinusitis, unspecified (Primary Dx) Social History Tobacco Use Types Packs/Day Years Used Date Smoking Tobacco: Never Assessed Comments Unknown Sex and Gender Information Value Date Recorded Sex Assigned at Not on file Legal Sex Female 5:59 AM CROWN PRESSER Gender Identity Not on file Sexual Orientation Not on file documented as of this encounter Plan of Treatment Not on file documented as of this encounter Visit Diagnoses Diagnosis Acute sinusitis, unspecified- Primary documented in this encounter Care Teams Standards Engineer Relationship Specialty Start Date End Date Charles Delgadillo MD [address], [place] [address] PCP - General Family Practice 09/05/10 documented as of this encounter
--- OUTSIDE RECORDS SUMMARY | 2025-09-22 19:53 | XMS_ITS | Encounter Summary ---
Author Organization [facility] Address [address] [place] [address] Care Team Providers Care Control Board Operator Name Role Phone Charles Delgadillo MD Primary Care Provider [phone] Encounter Details Date Type Department Care Team (Latest Contact Info) Description 07/24/2007 Outpatient Historical [facility] Medicine [address] [phone] Roz Capellan MD [address] [place] [phone] Unspecified Disorder of Sweat Glands (Primary Dx) Social History Tobacco Use Types Packs/Day Years Used Date Smoking Tobacco: Never Assessed Comments Unknown Sex and Gender Information Value Date Recorded Sex Assigned at Not on file Legal Sex Female 5:59 AM HOURLY SHIFT Gender Identity Not on file Sexual Orientation [...] Primary documented in this encounter Care Teams Control Board Operator Relationship Specialty Start Date End Date Charles Delgadillo MD [address] [place] [address] PCP - General Family Practice 09/05/10 documented as of this encounter
--- OUTSIDE RECORDS SUMMARY | 2025-09-22 19:53 | XMS_ITS | Encounter Summary ---
Author Organization [facility] Address [address] [place] [address] Care Team Providers Care Hotel Service Manager Name Role Phone Charles Delgadillo MD Primary Care Provider [phone] Encounter Details Date Type Department Care Team (Late st Contact Info) Description 10/09/2007 Outpatient Historical [facility] Medicine [address] [phone] Roz Capellan MD [address] [place] [phone] Social History Tobacco Use Types Packs/Day Years Used Date Smoking Tobacco: Never Assessed Comments Unknown Sex and Gender Information Value Date Recorded Sex Assigned at Not on file Legal Sex Female 5:59 AM HANDBOOK WRITER Gender Identity Not on file Sexual [...] to change her hydrocodone acetaminophen mix to Keiser 10/325 half atablet every 4 hours for [...] in three months' time. Roz Capellan M.D. [facility] Electronically Signed by Roz Capellan M.D. 10/22/2007 14:25 , arin Charles Document #: [id number] cc: BOOK WRITER documented in this encounter Plan of Treatment Not on file documented as of this encounter Visit Diagnoses Not on filedocumented in this encounter Care Teams Hotel Service Manager Relationship Specialty Start Date End Date Charles Delgadillo MD [address], [place] [address] PCP - General Family Practice 09/05/10 documented as of this encounter
--- OUTSIDE RECORDS SUMMARY | 2025-09-22 19:53 | XMS_ITS | Encounter Summary ---
Author Organization [employer] [facility] Address [address] [place] [address] Care Team Providers Care Community Nurse Name Role Phone Charles Delgdaillo MD Primary Care Provider [phone] Encounter Details Date Type Department Care Team (Latest Contact Info) Description 09/12/1998 Outpatient Historical [facility] Olu Pineda Jr., MD [facility] [place] [address] Urinary frequency (Primary Dx); Other dyspnea and respiratory abnormality; Pure hypercholesterolem; Myalgia and myositis, unspecified Social History Tobacco Use Types Packs/Day Years Used Date Smoking Tobacco: Never Assessed Comments Unknown Sex and Gender Information Value Date Recorded Sex Assigned at Not on file Legal Sex Female 5:59 AM HORTICULTURAL AGENT Gender Identity Not on file Sexual Orientation Not on file documented as of this encounter Plan of Treatment Not on file documented as of this encounter Visit Diagnoses Diagnosis Urinary frequency- Primary Other dyspnea and respiratory abnormality Pure hypercholesterolem Pure hypercholesterolemia Myalgia and myositis, unspecified Mylagia and myositis, unspecified documented in this encounter Care Teams Community Nurse Relationship Specialty Start Date End Date Charles Delgadillo MD [address] [place] [phone] PCP - General Family Practice 09/05/10 documented as of this encounter
--- OUTSIDE RECORDS SUMMARY | 2025-09-22 19:53 | XMS_ITS | Encounter Summary ---
Author Organization [facility] Address [address] [place] [address] Care Team Providers Care Director Of Casino Name Role Phone Charles Delgadillo MD Primary Care Provider [phone] Encounter Details Date Type Department Care Team (Latest Contact Info) Description 07/15/2007 Outpatient [facility] [address] [place] [address] [place] [address] [phone] Antonio Lopez MD [address] [place] [address] Follow-Up Examination, Following Unspecified Surgery (Primary Dx) Social History Tobacco Use Types Packs/Day Years Used Date Smoking Tobacco: Never Assessed Comments Unknown Sex and Gender Information Value Date Recorded Sex Assigned at Not on file Legal Sex Female 5:59 AM SHOOTER HELPER Gender Identity Not on file Sexual Orientation Not on file documented as of this encounter Plan of Treatment Not on file documented as of this encounter Visit Diagnoses Diagnosis Follow-up examination, following unspecified surgery- Primary documented in this encounter Care Teams Director Of Casino Relationship Specialty Start Date End Date Charles Delgadillo MD [address] [place] [address] PCP - General Family Practice 09/05/10 documented as of this encounter
--- OUTSIDE RECORDS SUMMARY | 2025-09-22 19:53 | XMS_ITS | Encounter Summary ---
Author Organization [facility] Address [address] [place] [address] Care Team Providers Care Technician Test Systems Name Role Phone Charles Delgadillo MD Primary Care Provider [phone] Encounter Details Date Type Department Care Team (Late st Contact Info) Description 03/04/2008 Outpatient Historical [facility] Vasiliy Xiao MD [address] [phone] Social History Tobacco Use Types Packs/Day Years Used Date Smoking Tobacco: Never Assessed Comments No Sex and Gender Information Value Date Recorded Sex Assigned at Not on file Legal Sex Female 5:59 AM ALODIZE MACHINE HELPER Gender Identity Not on file Sexual Orientation Not on file documented as of this encounter Plan of Treatment Not on file documented as of this encounter Visit Diagnoses Not on filedocumented in this encounter Care Teams Technician Test Systems Relationship Specialty Start Date End Date Charles Delgadillo MD [address] [place] [address] PCP - General Family Practice 09/05/10 documented as of this encounter
--- OUTSIDE RECORDS SUMMARY | 2025-09-22 19:53 | XMS_ITS | Encounter Summary ---
Author Organization [facility] Address [address] [place] [address] Care Team Providers Care Rubber Goods Tester Name Role Phone Charles Delgadillo MD Primary Care Provider [phone] Encounter Details Date Type Department Care Team (Late st Contact Info) Description 10/16/1999 Outpatient Historical [facility] Rheumatology- [facility] [address] [place] [address] Mark Butler DO [address] [facility] [address] [place] [address] Myalgia and myositis, unspecified (Primary Dx) Social History Tobacco Use Types Packs/Day Years Used Date Smoking Tobacco: Never Assessed Comments Unknown Sex and Gender Information Value Date Recorded Sex Assigned at Not on file Legal Sex Female 5:59 AM SUPERVISOR BELT AND LINK ASSEMBLY Gender Identity Not on file Sexual Orientation Not on file documented as of this encounter Plan of Treatment Not on file documented as of this encounter Visit Diagnoses Diagnosis Myalgia and myositis, unspecified- Primary Mylagia and myositis, unspecified documented in this encounter Care Teams Rubber Goods Tester Relationship Specialty Start Date End Date Charles Delgadillo MD [address] [place] [phone] PCP - General Family Practice 09/05/10 documented as of this encounter
--- OUTSIDE RECORDS SUMMARY | 2025-09-22 19:53 | XMS_ITS | Encounter Summary ---
Author Organization [employer] [facility] Address [address] [place] [address] Care Team Providers Care Pastry Cook Helper Name Role Phone Charles Delgadillo MD Primary Care Provider [phone] Encounter Details Date Type Department Care Team [...] on file Legal Sex Female 5:59 AM MICA MINER Gender Identity Not on file Sexual Orientation Not on file documented as of this encounter Plan of Treatment Not on file documented as of this encounter Visit Diagnoses Diagnosis Chondromalacia patellae- Primary Chondromalacia of patella Chondromalacia Cervical spondylosis Cervical spondylosis without myelopathy Follow-up examination following surgery documented in this encounter Care Teams Pastry Cook Helper Relationship Specialty Start Date End Date Charles Delgadillo MD [address] [place] [phone] PCP - General Family Practice 09/05/10 documented as of this encounter
--- OUTSIDE RECORDS SUMMARY | 2025-09-22 19:53 | XMS_ITS | Encounter Summary ---
Author Organization [facility] Address [address] [place] [address] Care Team Providers Care Conductor Freight Name Role Phone Norman Caldera MD Primary Care Provider [phone] Encounter Details Date Type Department Care Team (Late st Contact Info) Description 08/15/2025 Results Follow-Up [facility] Gastroenterology- [place] [address] [facility] [address] [place] [address] La Hancock NP [address] [facility] [address] [place] [address] [place] ABDOMEN LIMITED Social History [...] worry about transportation for future doctor visits, pick up man medication, etc.? No 2024 Housing Stability Answer [...] on file Legal Sex Female 2:09 AM BATCH FREEZER OPERATOR Gender Identity Not on file Sexual Orientation Not on file documented as of this encounter Plan of Treatment Upcoming Encounters Date Type Department Care Team (Late st Contact Info) Description 11/16/2025 11:40 AM BATCH FREEZER OPERATOR Office Visit [facility] Family Medicine [place] [address] [phone] Norman Caldera MD [address] [phone] 02/01/2026 9:30 AM CDT Office Visit [facility] Gastroenterology- [place] [address] [place] [address] Deepthi Ray, SHUTTLER CAR [address] [facility] [address] [place] [address] documented as of this encounter [...] documented as of this encounter Care Teams Conductor Freight Relationship Specialty Start Date End Date Norman Caldera MD [address] [place] [phone] PCP - General Family Practice 09/06/23 documented as of this encounter
--- OUTSIDE RECORDS SUMMARY | 2025-09-22 19:53 | XMS_ITS | Encounter Summary ---
Author Organization [facility] Address [address] [place] [address] Care Team Providers Care Marketing Support Specialist Name Role Phone Charles Delgadillo MD Primary Care Provider [phone] Encounter Details Date Type Department Care Team (Late st Contact Info) Description 03/16/2008 Outpatient [facility] [address] [place] [address] [facility] [address] [place] [address] Vasiliy Xiao MD [address] [facility] [address] [place] [phone] Social History Tobacco Use Types Packs/Day Years Used Date Smoking Tobacco: Never Assessed Comments No Sex and Gender Information Value Date Recorded Sex Assigned at Not on file Legal Sex Female 5:59 AM SEMICONDUCTOR DEVELOPMENT TECHNICIAN Gender Identity Not on file Sexual Orientation Not on file documented as of this encounter Plan of Treatment Not on file documented as of this encounter Visit Diagnoses Not on filedocumented in this encounter Care Teams Marketing Support Specialist Relationship Specialty Start Date End Date Charles Delgadillo MD [address] [place] [address] PCP - General Family Practice 09/05/10 documented as of this encounter
--- OUTSIDE RECORDS SUMMARY | 2025-09-22 19:53 | XMS_ITS | Encounter Summary ---
Author Organization [facility] Address [address] [place] [address] Care Team Providers Care District Plant Superintendent Name Role Phone Charles Delgadillo MD Primary Care Provider [phone] Encounter Details Date Type Department Care Team (Late st Contact Info) Description 09/08/2007 Outpatient Historical [facility] Medicine [place] [address] [place] [phone] Roz Capellan MD [address] [place] [phone] Social History Tobacco Use Types Packs/Day Years Used Date Smoking Tobacco: Never Assessed Comments Unknown Sex and Gender Information Value Date Recorded Sex Assigned at Not on file Legal Sex Female 5:59 AM MANAGER SOUND Gender Identity Not on file Sexual Orientation Not on file documented as of this encounter Plan of Treatment Not on file documented as of this encounter Visit Diagnoses Not on filedocumented in this encounter Care Teams District Plant Superintendent Relationship Specialty Start Date End Date Charles Delgadillo MD [address] [place] [phone] PCP - General Family Practice 09/05/10 documented as of this encounter
--- OUTSIDE RECORDS SUMMARY | 2025-09-22 19:53 | XMS_ITS | Encounter Summary ---
Author Organization [employer] [facility] Address [address] [place] [address] Care Team Providers Care Coal Trimmer Machine Operator Name Role Phone Charles Delgadillo MD Primary Care Provider [phone] Reason for Referral * Outpatient Services (Routine) - Closed Specialty Diagnoses / Procedures Referred By Contchrissy t Referred To Contact Diagnoses Visit for screening mammogram Procedures MAMMO SCRN BILAT MOBILE W OR WO CAD Charles Delgadillo MD [address], [place] [address] Phone: tel: fax: Referral ID Status Reason Start Date Expiration Date Visits Re quested Visits Authorized [id number] Closed 08/29/2017 09/29/2018 1 1 CUTTER Encounter Details Date Type Department Care Team (Latest Contact Info) Description 08/29/2017 Ancillary Orders [facility] [place] [address] [address] Charles Delgadillo MD [address] [place] [address] Visit for screening mammogram Social History Tobacco Use Types Packs/Day Years Used Date Smoking Tobacco: Never Smokeless Tobacco: Never Alcohol Use Standard Drinks/Week Comments No 0 (1 standard drink = 0.6 oz pur e alcohol) Comments No Sex and Gender Information Value Date Recorded Sex Assigned at Not on file Legal Sex Female 5:59 AM REEL CUTTER Gender Identity Not on file Sexual Orientation Not on file 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
--- OUTSIDE RECORDS SUMMARY | 2025-09-22 19:53 | XMS_ITS | Encounter Summary ---
Author Organization [facility] Address [address] [place] [address] Care Team Providers Care Pedodontist Name Role Phone Charles Delgadillo MD Primary Care Provider [phone] Encounter Details Date Type Department Care Team (Latest Contact Info) Description 12/20/1998 Outpatient Historical [facility] Rheumatology- [facility] [address] [place] [address] Myalgia and myositis, unspecified (Primary Dx); Sleep disturbance, unspecified; Abnormality of gait Social History Tobacco Use Types Packs/Day Years Used Date Smoking Tobacco: Never Assessed Comments Unknown Sex and Gender Information Value Date Recorded Sex Assigned at Not on file Legal Sex Female 5:59 AM MENTAL HEALTH PROFESSIONAL Gender Identity Not on file Sexual Orientation Not on file documented as of this encounter Plan of Treatment Not on file documented as of this encounter Visit Diagnoses Diagnosis Myalgia and myositis, unspecified- Primary Mylagia and myositis, unspecified Sleep disturbance, unspecified Abnormality of gait documented in this encounter Care Teams Pedodontist Relationship Specialty Start Date End Date Charles Delgadillo MD [address] [place] [address] PCP - General Family Practice 09/05/10 documented as of this encounter
--- OUTSIDE RECORDS SUMMARY | 2025-09-22 19:53 | XMS_ITS | Encounter Summary ---
Author Organization [facility] Address [address] [place] [address] Care Team Providers Care Cigarette Tipper Name Role Phone Charles Delgadillo MD Primary Care Provider [phone] Encounter Details Date Type Department Care Team (Late st Contact Info) Description 02/06/2010 Ancillary Orders [facility] Imaging External Read [address] [place] [phone] Roz Capellan MD [address] [place] [address] Screening Mammogram Social History Tobacco Use Types Packs/Day Years Used Date Smoking Tobacco: Never Alcohol Use Standard Drinks/Week Comments No 0 (1 standard drink = 0.6 oz pur e alcohol) Comments No Sex and Gender Information Value Date Recorded Sex Assigned at Not on file Legal Sex Female 5:59 AM REGIONAL ENGAGEMENT CONSULTANT Gender Identity Not on file Sexual Orientation Not on file 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, [place], [place] dated 03/12/06 and 04/12/08 were compared [...] mammogram documented in this encounter Care Teams Cigarette Tipper Relationship Specialty Start Date End Date Charles Delgadillo MD [address] [place] [address] PCP - General Family Practice 09/05/10 documented as of this encounter
--- OUTSIDE RECORDS SUMMARY | 2025-09-22 19:53 | XMS_ITS | Encounter Summary ---
Author Organization [facility] Address [address] [place] [address] Care Team Providers Care Workforce Consultant Name Role Phone Chalres Delgadillo MD Primary Care Provider [phone] Encounter Details Date Type Department Care Team (Late st Contact Info) Description 09/30/2008 Outpatient Historical [facility] Operating [address] [place] [address] Fernando Jay, Paul Swain MD [address] [place] [address] Social History Tobacco Use Types Packs/Day Years Used Date Smoking Tobacco: Never Alcohol Use Standard Drinks/Week Comments No 0 (1 standard drink = 0.6 oz pur e alcohol) Comments No Sex and Gender Information Value Date Recorded Sex Assigned at Not on file Legal Sex Female 5:59 AM HOSPICE NURSE Gender Identity Not on file Sexual Orientation Not on file 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
--- OUTSIDE RECORDS SUMMARY | 2025-09-22 19:53 | XMS_ITS | Encounter Summary ---
Author Organization [facility] Address [address] [place] [address] Care Team Providers Care Insemination Worker Name Role Phone Charles Delgadillo MD Primary Care Provider Encounter Details Date Type Department Care Team (Latest Contact Info) Description 09/19/1999 Outpatient Historical [facility] [address] [phone] Jameel Rodriguez DO NO ADDRESS ON FILE Pneumonia, organism unspecified(486) (Primary Dx) Social History Tobacco Use Types Packs/Day Years Used Date Smoking Tobacco: Never Assessed Comments Unknown Sex and Gender Information Value Date Recorded Sex Assigned at Not on file Legal Sex Female 5:59 AM OUTSIDE MAINTENANCE WORKER Gender Identity Not on file Sexual Orientation Not on file documented as of this encounter Plan of Treatment Not on file documented as of this encounter Visit Diagnoses Diagnosis Pneumonia, organism unspecified(486)- Primary Pneumonia, organism unspecified documented in this encounter Care Teams Insemination Worker Relationship Specialty Start Date End Date Charles Delgadillo MD [address] [place] [address] PCP - General Family Practice 09/05/10 documented as of this encounter
--- OUTSIDE RECORDS SUMMARY | 2025-09-22 19:53 | XMS_ITS | Encounter Summary ---
Author Organization [facility] Address [address] [place] [address] Care Team Providers Care Intellectual Property Lawyer Name Role Phone Charles Delgadillo MD Primary Care Provider [phone] Encounter Details Date Type Department Care Team (Latest Contact Info) Description 07/12/2000 Outpatient [facility] Family Medicine [place] [address] [facility] [address] [place] [address] Thomas Anne MD [address] [address] Myalgia and myositis, unspecified (Primary Dx); Depressive disorder, not elsewhere classified; Need for prophylactic vaccination against Streptococcus pneumoniae (pneumococcus) Social History Tobacco Use Types Packs/Day Years Used Date Smoking Tobacco: Never Assessed Comments Unknown Sex and Gender Information Value Date Recorded Sex Assigned at Not on file Legal Sex Female 5:59 AM BANDOLEER PACKER Gender Identity Not on file Sexual [...] (pneumococcus) documented in this encounter Care Teams Intellectual Property Lawyer Relationship Specialty Start Date End Date Charles Delgadillo MD [address] [place] [address] PCP - General Family Practice 09/05/10 documented as of this encounter
--- OUTSIDE RECORDS SUMMARY | 2025-09-22 19:53 | XMS_ITS | Encounter Summary ---
Author Organization [facility] Address [address] [place] [address] Care Team Providers Care Charter Driver Name Role Phone Norman Caldera MD Primary Care Provider [phone] Encounter Details Date Type Department Care Team (Late st Contact Info) Description 09/21/2025 Orders Only [facility] Endocrinology [facility] [address] [place] [address] [facility] F Type 2 diabetes mellitus with stage 3a chronic kidney disease, with long-term current use of insulin ([facility]) Social History Tobacco Use Types Packs/Day Years [...] worry about transportation for future doctor visits, picker tender helper medication, etc.? No 2024 Housing Stability Answer [...] on file Legal Sex Female 2:09 AM MINE PRODUCTION ENGINEER Gender Identity Not on file Sexual Orientation Not on file documented as of this encounter Plan of Treatment Upcoming Encounters Date Type Department Care Team (Late st Contact Info) Description 11/16/2025 11:40 AM MINE PRODUCTION ENGINEER Office Visit [facility] Family Medicine [place] [address] [phone] Norman Caldera MD [address] [phone] 02/01/2026 9:30 AM CDT Office Visit [facility] Gastroenterology- [place] [address] [address] [facility] [place] [address] Deepthi Ray, X RAY CONTROL EQUIPMENT REPAIRER [address] [facility] [address] [place] [address] documented as of this encounter Goals Goal Patient Goal Type Associated Problems Recent Progress Patient-Stated? Author HYPERTENSIO N CARE PLAN GOAL Care Plan PALLAVI MYC HYPERTENSION CARE PLAN PROBLEM No Norman Caldera MD documented as of this encounter Visit Diagnoses Diagnosis Type 2 diabetes mellitus with stage 3a chronic kidney disease, with long-term current use of insulin ([facility]) documented in this encounter Additional Health Concerns Active Problems Noted Date Diagnosed Date PALLAVI MYC HYPERTENSION CARE PLAN PROBLEM 4 documented as of this encounter Care Teams Charter Driver Relationship Specialty Start Date End Date Norman Caldera MD [address] [place] [address] PCP - General Family Practice 09/06/23 documented as of this encounter
--- OUTSIDE RECORDS SUMMARY | 2025-09-22 19:53 | XMS_ITS | Encounter Summary ---
Author Organization [facility] Address [address] [place] [address] Care Team Providers Care Bond Broker Name Role Phone Charles Delgadillo MD Primary Care Provider [phone] Encounter Details Date Type Department Care Team (Latest Contact Info) Description 07/19/1999 Outpatient Historical [facility] Family Medicine [address] [phone] Jameel Rodriguez DO NO ADDRESS ON FILE Myalgia and myositis, unspecified (Primary Dx); Unspecified essential hypertension Social History Tobacco Use Types Packs/Day Years Used Date Smoking Tobacco: Never Assessed Comments Unknown Sex and Gender Information Value Date Recorded Sex Assigned at Not on file Legal Sex Female 5:59 AM APPLICATION SECURITY DEVELOPER Gender Identity Not on file Sexual Orientation Not on file documented as of this encounter Plan of Treatment Not on file documented as of this encounter Visit Diagnoses Diagnosis Myalgia and myositis, unspecified- Primary Mylagia and myositis, unspecified Unspecified essential hypertension documented in this encounter Care Teams Bond Broker Relationship Specialty Start Date End Date Charles Delgadillo MD [address] [place] [address] PCP - General Family Practice 09/05/10 documented as of this encounter
--- OUTSIDE RECORDS SUMMARY | 2025-09-22 19:53 | XMS_ITS | Encounter Summary ---
Author Organization [facility] Address [address] [place] [address] Care Team Providers Care Pizza Baker Name Role Phone Charles Delgadillo MD Primary Care Provider [phone] Encounter Details Date Type Department Care Team (Latest Contact Info) Description 11/21/2000 Outpatient [facility] Family Medicine [place] [address] [facility] [address] [place] [address] Thomas Anne MD [address] [address] Cramp of limb (Primary Dx); Pain in limb Social History Tobacco Use Types Packs/Day Years Used Date Smoking Tobacco: Never Assessed Comments Unknown Sex and Gender Information Value Date Recorded Sex Assigned at Not on file Legal Sex Female 5:59 AM UPHOLSTERER LIMOUSINE AND HEARSE Gender Identity Not on file Sexual Orientation Not on file documented as of this encounter Plan of Treatment Not on file documented as of this encounter Visit Diagnoses Diagnosis Cramp of limb- Primary Pain in limb Pain in soft tissues of limb documented in this encounter Care Teams Pizza Baker Relationship Specialty Start Date End Date Charles Delgadillo MD [address] [place] [address] PCP - General Family Practice 12/14/10 documented as of this encounter
--- OUTSIDE RECORDS SUMMARY | 2025-09-22 19:53 | XMS_ITS | Encounter Summary ---
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) Social History Tobacco Use Types Packs/Day Years Used Date Smoking Tobacco: Never Assessed Comments Unknown Sex and Gender Information Value Date Recorded Sex Assigned at Not on file Legal Sex Female 5:59 AM KEY OPERATOR Gender Identity Not on file Sexual Orientation Not on file documented as of this encounter Plan of Treatment Not on file documented as of this encounter Visit Diagnoses Diagnosis Unspecified cerebral artery occlusion with cerebral infarction- Primary documented in this encounter Care Teams Manager Of Enterprise Relationship Specialty Start Date End Date Charles Delgadillo MD [address], [place] [address] PCP - General Family Practice 09/05/10 documented as of this encounter
--- OUTSIDE RECORDS SUMMARY | 2025-09-22 19:53 | XMS_ITS | Encounter Summary ---
Author Organization [facility] Address [address] [place] [address] Care Team Providers Care Licensed Insurance Sales Agent Name Role Phone Charles Delgadillo MD Primary Care Provider Encounter Details Date Type Department Care Team (Latest Contact Info) Description 04/23/2000 Outpatient [facility] Medicine [place] 104 [facility] 60 [place] [address] Thomas Anne MD [address] [address] Dizziness and giddiness (Primary Dx); CVA Social History Tobacco Use Types Packs/Day Years Used Date Smoking Tobacco: Never Assessed Comments Unknown Sex and Gender Information Value Date Recorded Sex Assigned at Not on file Legal Sex Female 5:59 AM ENTRY LEVEL MARKETING REPRESENTATIVE Gender Identity Not on file Sexual Orientation Not on file documented as of this encounter Plan of Treatment Not on file documented as of this encounter Visit Diagnoses Diagnosis Dizziness and giddiness- Primary CVA Unspecified cerebral artery occlusion with cerebral infarction documented in this encounter Care Teams Licensed Insurance Sales Agent Relationship Specialty Start Date End Date Charles Delgadillo MD [address] [place] [phone] PCP - General Family Practice 09/05/10 documented as of this encounter
--- OUTSIDE RECORDS SUMMARY | 2025-09-22 19:53 | XMS_ITS | Encounter Summary ---
Author Organization [facility] Address [address] [place] [address] Care Team Providers Care International Marketing Coordinator Name Role Phone Charles Delgadillo MD Primary Care Provider [phone] Encounter Details Date Type Department Care Team (Latest Contact Info) Description 07/10/1999 Outpatient Historical [facility] Family Medicine [address] [phone] Jameel Rodriguez DO NO ADDRESS ON FILE Urticaria, unspecified (Primary Dx) Social History Tobacco Use Types Packs/Day Years Used Date Smoking Tobacco: Never Assessed Comments Unknown Sex and Gender Information Value Date Recorded Sex Assigned at Not on file Legal Sex Female 5:59 AM 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
--- OUTSIDE RECORDS SUMMARY | 2025-09-22 19:53 | XMS_ITS | Encounter Summary ---
Author Organization [facility] Address [address] [place] [address] Care Team Providers Care Wholesale And Retail Merchant Name Role Phone Charles Delgadillo MD Primary Care Provider [phone] Encounter Details Date Type Department Care Team (Latest Contact Info) Description 01/26/2000 Outpatient [facility] Medicine [place] 104 [facility] 60 [place] [address] Thomas Anne MD [address] [address] Myalgia and myositis, unspecified (Primary Dx); Dizziness and giddiness Social History Tobacco Use Types Packs/Day Years Used Date Smoking Tobacco: Never Assessed Comments Unknown Sex and Gender Information Value Date Recorded Sex Assigned at Not on file Legal Sex Female 5:59 AM COLD PATCHER Gender Identity Not on file Sexual Orientation Not on file documented as of this encounter Plan of Treatment Not on file documented as of this encounter Visit Diagnoses Diagnosis Myalgia and myositis, unspecified- Primary Mylagia and myositis, unspecified Dizziness and giddiness documented in this encounter Care Teams Wholesale And Retail Merchant Relationship Specialty Start Date End Date Charles Delgadillo MD [address], [place] [address] PCP - General Family Practice 09/05/10 documented as of this encounter
--- OUTSIDE RECORDS SUMMARY | 2025-09-22 19:53 | XMS_ITS | Encounter Summary ---
Author Organization [facility] Address [address] [place] [address] Care Team Providers Care Manufacturing Intern Name Role Phone Norman Caldera MD Primary Care Provider [phone] Encounter Details Date Type Department Care Team (Latest Contact Info) Description 08/22/2025 Results Follow-Up [facility] Family Medicine [address] [address] Norman Caldera MD [address] [place] [address] HEMOGLOBIN A1C, COMPREHENSIVE METABOLIC PANEL, CBC [...] worry about transportation for future doctor visits, fruit picker medication, etc.? No 2024 Housing Stability [...] on file Legal Sex Female 2:09 AM COACH PROFESSIONAL ATHLETES Gender Identity Not on file Sexual Orientation Not on file documented as of this encounter Plan of Treatment Upcoming Encounters Date Type Department Care Team (Late st Contact Info) Description 11/16/2025 11:40 AM COACH PROFESSIONAL ATHLETES Office Visit [facility] Family Medicine [place] [address] [phone] Norman Caldera MD [address] [phone] 02/01/2026 9:30 AM CDT Office Visit [facility] Gastroenterology- [place] [address] [place] [address] Deepthi Ray, OPTION TRADER [address] [facility] [address] [place] [address] documented as of this encounter [...] documented as of this encounter Care Teams Manufacturing Intern Relationship Specialty Start Date End Date Norman Caldera MD [address] [place] [address] PCP - General Family Practice 09/06/23 documented as of this encounter
--- OUTSIDE RECORDS SUMMARY | 2025-09-22 19:53 | XMS_ITS | Encounter Summary ---
Author Organization [facility] Address [address] [place] [address] Care Team Providers Care Brim Ironer Hand Name Role Phone Charles Delgadillo MD Primary Care Provider [phone] Encounter Details Date Type Department Care Team (Latest Contact Info) Description 09/05/1999 Outpatient Historical [facility] Family Medicine [address] [phone] Jameel Rodriguez, NO ADDRESS ON FILE Unspecified sinusitis (chronic) (Primary Dx); Acute bronchitis Social History Tobacco Use Types Packs/Day Years Used Date Smoking Tobacco: Never Assessed Comments Unknown Sex and Gender Information Value Date Recorded Sex Assigned at Not on file Legal Sex Female 5:59 AM CHILD PROTECTIVE SERVICES SOCIAL WORKER Gender Identity Not on file Sexual Orientation Not on file documented as of this encounter Plan of Treatment Not on file documented as of this encounter Visit Diagnoses Diagnosis Unspecified sinusitis (chronic)- Primary Acute bronchitis documented in this encounter Care Teams Brim Ironer Hand Relationship Specialty Start Date End Date Charles Delgadillo MD [address] [place] [address] PCP - General Family Practice 09/05/10 documented as of this encounter
--- OUTSIDE RECORDS SUMMARY | 2025-09-22 19:53 | XMS_ITS | Encounter Summary ---
Author Organization [facility] Address [address] [place] [address] Care Team Providers Care Court Magistrate Name Role Phone Charles Delgadillo MD Primary Care Provider [phone] Encounter Details Date Type Department Care Team [...] file Legal Sex Female 5:59 AM PHYSICAL TRAINER Gender Identity Not on file Sexual Orientation Not on file documented as of this encounter Plan of Treatment Not on file documented as of this encounter Visit Diagnoses Diagnosis Other joint derangement, not elsewhere classified, shoulder region- Primary documented in this encounter Care Teams Court Magistrate Relationship Specialty Start Date End Date Charles Delgadillo MD [address] [place] [address] PCP - General Family Practice 09/05/10 documented as of this encounter
--- OUTSIDE RECORDS SUMMARY | 2025-09-22 19:53 | XMS_ITS | Encounter Summary ---
Author Organization [facility] Address [address] [place] [address] Care Team Providers Care Vehicle Glass Technician Name Role Phone Charles Delgadillo MD Primary Care Provider [phone] Encounter Details Date Type Department Care Team (Latest Contact Info) Description 09/28/1998 Outpatient Historical [facility] Olu Pineda Jr., MD [address] [place] [phone] Acute sinusitis, unspecified (Primary Dx) Social History Tobacco Use Types Packs/Day Years Used Date Smoking Tobacco: Never Assessed Comments Unknown Sex and Gender Information Value Date Recorded Sex Assigned at Not on file Legal Sex Female 5:59 AM WRAPPER HANDS SPRAYER Gender Identity Not on file Sexual Orientation Not on file documented as of this encounter Plan of Treatment Not on file documented as of this encounter Visit Diagnoses Diagnosis Acute sinusitis, unspecified- Primary documented in this encounter Care Teams Vehicle Glass Technician Relationship Specialty Start Date End Date Charles Delgadillo MD [address] [address] PCP - General Family Practice 09/05/10 documented as of this encounter
--- OUTSIDE RECORDS SUMMARY | 2025-09-22 19:53 | XMS_ITS | Encounter Summary ---
Author Organization [facility] Address [address] [place] [address] Care Team Providers Care Wool Sorter Name Role Phone Charles Delgadillo MD Primary Care Provider [phone] Encounter Details Date Type Department Care Team [...] Legal Sex Female 5:59 AM ENTRY LEVEL WEB DEVELOPER Gender Identity Not on file Sexual Orientation Not on file documented as of this encounter Plan of Treatment Not on file documented as of this encounter Visit Diagnoses Diagnosis Chondromalacia patellae- Primary Chondromalacia of patella Chondromalacia Other joint derangement, not elsewhere classified, lower leg Follow-up examination following surgery documented in this encounter Care Teams Wool Sorter Relationship Specialty Start Date End Date Charles Delgadillo MD [address] [place] [address] PCP - General Family Practice 09/05/10 documented as of this encounter
--- OUTSIDE RECORDS SUMMARY | 2025-09-22 19:53 | XMS_ITS | Encounter Summary ---
Author Organization [facility] Address [address] [facility] Attn: Epic Prelude ADT ANGELICA DAVIS [address] Care Team Providers Care Media Aid Name Role Phone Charles Delgadillo MD Primary Care Provider [phone] Encounter Details Date Type Department Care Team (Late st Contact Info) Description 11/21/2000 Outpatient Historical Thomas Anne MD [address] [phone] Social History Tobacco Use Types Packs/Day Years Used Date Smoking Tobacco: Never Assessed Comments Unknown Sex and Gender Information Value Date Recorded Sex Assigned at Not on file Legal Sex Female 5:59 AM AS400 ANALYST Gender Identity Not on file Sexual Orientation Not on file documented as of this encounter Plan of Treatment Not on file documented as of this encounter Visit Diagnoses Not on filedocumented in this encounter Care Teams Media Aid Relationship Specialty Start Date End Date Charles Delgadillo MD [address] [place] [address] PCP - General Family Practice 09/05/10 documented as of this encounter
--- OUTSIDE RECORDS SUMMARY | 2025-09-22 19:53 | XMS_ITS | Encounter Summary ---
Author Organization [facility] Address [address] [place] [address] Care Team Providers Care Coagulator Name Role Phone Charles Delgadillo MD Primary Care Provider [phone] Encounter Details Date Type Department Care Team (Late st Contact Info) Description 03/23/2008 Outpatient Historical [facility] [address] [place] [phone] Vasiliy Xiao MD [address] [phone] Social History Tobacco Use Types Packs/Day Years Used Date Smoking Tobacco: Never Assessed Comments No Sex and Gender Information Value Date Recorded Sex Assigned at Not on file Legal Sex Female 5:59 AM PROPULSION GENERATOR REPAIRER Gender Identity Not on file Sexual Orientation Not on file documented as of this encounter Plan of Treatment Not on file documented as of this encounter Visit Diagnoses Not on filedocumented in this encounter Care Teams Coagulator Relationship Specialty Start Date End Date Charles Delgadillo MD [address] [place] [address] PCP - General Family Practice 09/05/10 documented as of this encounter
--- OUTSIDE RECORDS SUMMARY | 2025-09-22 19:53 | XMS_ITS | Encounter Summary ---
Author Organization [facility] Address [address] [place] [address] Care Team Providers Care Crime Analyst Name Role Phone Charles Delgadillo MD Primary Care Provider Encounter Details Date Type Department Care Team (Latest Contact Info) Description 11/25/1998 Outpatient [facility] [place] 104 [facility] [address] [place] [address] Thomas Anne MD [address] [address] Unspecified essential hypertension (Primary Dx); Myalgia and myositis, unspecified Social History Tobacco Use Types Packs/Day Years Used Date Smoking Tobacco: Never Assessed Comments Unknown Sex and Gender Information Value Date Recorded Sex Assigned at Not on file Legal Sex Female 5:59 AM CHILD NUTRITION ASSISTANT Gender Identity Not on file Sexual Orientation Not on file documented as of this encounter Plan of Treatment Not on file documented as of this encounter Visit Diagnoses Diagnosis Unspecified essential hypertension- Primary Myalgia and myositis, unspecified Mylagia and myositis, unspecified documented in this encounter Care Teams Crime Analyst Relationship Specialty Start Date End Date Charles Delgadillo MD [address], [place] [address] PCP - General Family Practice 09/05/10 documented as of this encounter
--- OUTSIDE RECORDS SUMMARY | 2025-09-22 19:53 | XMS_ITS | Encounter Summary ---
Author Organization [facility] Address [address] [place] [address] Care Team Providers Care Silverlight Developer Name Role Phone Charles Delgaidllo MD Primary Care Provider [phone] Encounter Details Date Type Department Care Team (Latest Contact Info) Description 11/18/1998 Outpatient Historical [facility] Olu Pineda Jr., MD [facility]5 [place] [address] Dietary surveil/direct selling counselor (Primary Dx) Social History Tobacco Use Types Packs/Day Years Used Date Smoking Tobacco: Never Assessed Comments Unknown Sex and Gender Information Value Date Recorded Sex Assigned at Not on file Legal Sex Female 5:59 AM SYSTEMS ARCHITECT Gender Identity Not on file Sexual Orientation Not on file documented as of this encounter Plan of Treatment Not on file documented as of this encounter Visit Diagnoses Diagnosis Dietary surveil/direct selling counselor- Primary Dietary surveillance and counseling documented in this encounter Care Teams Silverlight Developer Relationship Specialty Start Date End Date Charles Delgadillo MD [address] [place] [phone] PCP - General Family Practice 09/05/10 documented as of this encounter
--- OUTSIDE RECORDS SUMMARY | 2025-09-22 19:53 | XMS_ITS | Encounter Summary ---
Author Organization [facility] Address [address] [place] [address] Care Team Providers Care Alto Singer Name Role Phone Charles Delgadillo MD Primary Care Provider [phone] Encounter Details Date Type Department Care Team (Late st Contact Info) Description 07/15/2007 Outpatient Historical [facility] [address] [place] [phone] Social History Tobacco Use Types Packs/Day Years Used Date Smoking Tobacco: Never Assessed Comments Unknown Sex and Gender Information Value Date Recorded Sex Assigned at Not on file Legal Sex Female 5:59 AM FERMENTER OPERATOR Gender Identity Not on file Sexual Orientation Not on file documented as of this encounter Plan of Treatment Not on file documented as of this encounter Visit Diagnoses Not on filedocumented in this encounter Care Teams Alto Singer Relationship Specialty Start Date End Date Charles Delgadillo MD [address] [address] PCP - General Family Practice 09/05/10 documented as of this encounter
--- OUTSIDE RECORDS SUMMARY | 2025-09-22 19:53 | XMS_ITS | Encounter Summary ---
Author Organization [facility] Address [address] [place] [address] Care Team Providers Care Turbine Technician Name Role Phone Charles Delgadillo MD Primary Care Provider [phone] Encounter Details Date Type Department Care Team (Latest Contact Info) Description 05/08/1999 Outpatient [facility] Medicine [place] 104 [facility] 60 [place] [address] Thomas Anne MD [address] [phone] Screening for malignant neoplasm of the cervix (Primary Dx); Myalgia and myositis, unspecified; Screening for malignant neoplasm of the rectum Social History Tobacco Use Types Packs/Day Years Used Date Smoking Tobacco: Never Assessed Comments Unknown Sex and Gender Information Value Date Recorded Sex Assigned at Not on file Legal Sex Female 5:[address] Gender Identity Not on file Sexual Orientation Not on file documented as of this encounter Plan of Treatment Not on file documented as of this encounter Visit Diagnoses Diagnosis Screening for malignant neoplasm of the cervix- Primary Myalgia and myositis, unspecified Mylagia and myositis, unspecified Screening for malignant neoplasm of the rectum documented in this encounter Care Teams Turbine Technician Relationship Specialty Start Date End Date Charles Delgadillo MD [address] [place] [address] PCP - General Family Practice 09/05/10 documented as of this encounter
--- OUTSIDE RECORDS SUMMARY | 2025-09-22 19:53 | XMS_ITS | Encounter Summary ---
Author Organization [facility] Address [address] [place] [address] Care Team Providers Care Reimbursement Liaison Name Role Phone Charles Delgadillo MD Primary Care Provider [phone] Encounter Details Date Type Department Care Team (Latest Contact Info) Description 11/14/1998 Outpatient Historical [facility] Olu Pineda Jr., MD [address] [place] [address] Other and unspecified hyperlipidemia (Primary Dx); Unspecified essential hypertension; Chest pain, unspecified; Other dyspnea and respiratory abnormality Social History Tobacco Use Types Packs/Day Years Used Date Smoking Tobacco: Never Assessed Comments Unknown Sex and Gender Information Value Date Recorded Sex Assigned at Not on file Legal Sex Female 5:59 AM SCHOOL BUS ATTENDANT Gender Identity Not on file Sexual Orientation Not on file documented as of this encounter Plan of Treatment Not on file documented as of this encounter Visit Diagnoses Diagnosis Other and unspecified hyperlipidemia- Primary Unspecified essential hypertension Chest pain, unspecified Other dyspnea and respiratory abnormality documented in this encounter Care Teams Reimbursement Liaison Relationship Specialty Start Date End Date Charles Delgadillo MD [address] [place] [address] PCP - General Family Practice 09/05/10 documented as of this encounter
--- OUTSIDE RECORDS SUMMARY | 2025-09-22 19:53 | XMS_ITS | Encounter Summary ---
Author Organization [facility] Address [address] [place] [address] Care Team Providers Care Playground Director Name Role Phone Charles Delgadillo MD Primary Care Provider [phone] Encounter Details Date Type Department Care Team (Late st Contact Info) Description 02/06/1999 Outpatient Historical [facility] Neurology [address], [address] [place] [address] Tristen Aragon MD [address] [place] [address] Unspecified cerebral artery occlusion with cerebral infarction (Primary Dx); Cervicalgia Social History Tobacco Use Types Packs/Day Years Used Date Smoking Tobacco: Never Assessed Comments Unknown Sex and Gender Information Value Date Recorded Sex Assigned at Not on file Legal Sex Female 5:59 AM IMMUNOLOGIST Gender Identity Not on file Sexual Orientation Not on file documented as of this encounter Plan of Treatment Not on file documented as of this encounter Visit Diagnoses Diagnosis Unspecified cerebral artery occlusion with cerebral infarction- Primary Cervicalgia documented in this encounter Care Teams Playground Director Relationship Specialty Start Date End Date Charles Delgadillo MD [address] [place] [phone] PCP - General Family Practice 09/05/10 documented as of this encounter
--- OUTSIDE RECORDS SUMMARY | 2025-09-22 19:53 | XMS_ITS | Encounter Summary ---
Author Organization [facility] Address [address] [place] [address] Care Team Providers Care Skidder Loader Name Role Phone Charles Delgadillo MD Primary Care Provider [phone] Encounter Details Date Type Department Care Team (Late st Contact Info) Description 10/22/2007 Outpatient Historical [facility] [address] [place] [phone] Antonio Lopez MD [address] [place] [address] Social History Tobacco Use Types Packs/Day Years Used Date Smoking Tobacco: Never Assessed Comments Unknown Sex and Gender Information Value Date Recorded Sex Assigned at Not on file Legal Sex Female 5:59 AM AERIAL INSTALLER Gender Identity Not on file Sexual Orientation Not on file documented as of this encounter Plan of Treatment Not on file documented as of this encounter Visit Diagnoses Not on filedocumented in this encounter Care Teams Skidder Loader Relationship Specialty Start Date End Date Charles Delgadillo MD [address], [place] [address] PCP - General Family Practice 09/05/10 documented as of this encounter
--- OUTSIDE RECORDS SUMMARY | 2025-09-22 19:53 | XMS_ITS | Encounter Summary ---
Author Organization [facility] Address [address] [place] [address] Care Team Providers Care Health Policy Manager Name Role Phone Charles Delgadillo MD [...] file Legal Sex Female 5:59 AM SUPERVISOR PIG MACHINE Gender Identity Not on file Sexual Orientation Not on file documented as of this encounter Plan of Treatment Not on file documented as of this encounter Visit Diagnoses Diagnosis Other joint derangement, not elsewhere classified, lower leg- Primary documented in this encounter Care Teams Health Policy Manager Relationship Specialty Start Date End Date Charles Delgadillo MD [address] [place] [address] PCP - General Family Practice 09/05/10 documented as of this encounter
--- OUTSIDE RECORDS SUMMARY | 2025-09-22 19:53 | XMS_ITS | Encounter Summary ---
Author Organization [facility] Address [address] [facility] [place] [address] Care Team Providers Care Accounting Lecturer Name Role Phone Charles Delgadillo MD Primary Care Provider [phone] Encounter Details Date Type Department Care Team (Late st Contact Info) Description 04/12/[address] [facility] [address] [address] Social History Tobacco Use Types Packs/Day Years Used Date Smoking Tobacco: Never Assessed Comments No Sex and Gender Information Value Date Recorded Sex Assigned at Not on file Legal Sex Female 5:59 AM PASSENGER CONDUCTOR Gender Identity Not on file Sexual Orientation Not on file documented as of this encounter Plan of Treatment Not on file documented as of this encounter Visit Diagnoses Not on filedocumented in this encounter Care Teams Accounting Lecturer Relationship Specialty Start Date End Date Charles Delgadillo MD [address], [place] [address] PCP - General Family Practice 09/05/10 documented as of this encounter
--- OUTSIDE RECORDS SUMMARY | 2025-09-22 19:53 | XMS_ITS | Encounter Summary ---
Author Organization [facility] Address [address] [place] [address] Care Team Providers Care Document Analyst Name Role Phone Charles Delgadillo MD Primary Care Provider [phone] Encounter Details Date Type Department Care Team (Latest Contact Info) Description 07/07/1999 Outpatient Historical [facility] Medicine [address] [phone] Jameel Rodriguez DO NO ADDRESS ON FILE Need vaccination-viral disease (Primary Dx) Social History Tobacco Use Types Packs/Day Years Used Date Smoking Tobacco: Never Assessed Comments Unknown Sex and Gender Information Value Date Recorded Sex Assigned at Not on file Legal Sex Female 5:59 AM PUBLIC RELATIONS WRITER Gender Identity Not on file Sexual Orientation Not on file documented as of this encounter Plan of Treatment Not on file documented as of this encounter Visit Diagnoses Diagnosis Need vaccination-viral disease- Primary Need for prophylactic vaccination and inoculation against other viral diseases documented in this encounter Care Teams Document Analyst Relationship Specialty Start Date End Date Charles Delgadillo MD [address] [place] [address] PCP - General Family Practice 09/05/10 documented as of this encounter
--- OUTSIDE RECORDS SUMMARY | 2025-09-22 19:53 | XMS_ITS | Encounter Summary ---
Author Organization [facility] Address [address] [place] [address] Care Team Providers Care Manufacturing Management Associate Name Role Phone Charles Delgadillo MD Primary Care Provider [phone] Encounter Details Date Type Department Care Team (Latest Contact Info) Description 04/08/2008 [facility] [address] [place] [address] Roz Capellan MD [address] [place] [phone] Other Screening Mammogram Social History Tobacco Use Types Packs/Day Years Used Date Smoking Tobacco: Never Assessed Comments No Sex and Gender Information Value Date Recorded Sex Assigned at Not on file Legal Sex Female 5:59 AM MANAGER ENVIRONMENTAL AFFAIRS Gender Identity Not on file Sexual Orientation Not on file documented as of this encounter Plan of Treatment Not on file documented as of this encounter Visit Diagnoses Diagnosis Other screening mammogram documented in this encounter Care Teams Manufacturing Management Associate Relationship Specialty Start Date End Date Charles Delgadillo MD [address] [place] [address] PCP - General Family Practice 09/05/10 documented as of this encounter
--- OUTSIDE RECORDS SUMMARY | 2025-09-22 19:53 | XMS_ITS | Encounter Summary ---
Author Organization [facility] Address [address] Art: Epic Prelude ADT ANGELICA DAVIS [address] Care Team Providers Care Seo Expert Name Role Phone Charles Delgadillo MD Primary Care Provider [phone] Encounter Details Date Type Department Care Team (Late st Contact Info) Description 04/22/2007 Outpatient Historical Hugo Oliver MD [address] [place] [address] Social History Tobacco Use Types Packs/Day Years Used Date Smoking Tobacco: Never Assessed Comments Unknown Sex and Gender Information Value Date Recorded Sex Assigned at Not on file Legal Sex Female 5:59 AM IT PROJECT COORDINATOR Gender Identity Not on file Sexual Orientation Not on file documented as of this encounter Plan of Treatment Not on file documented as of this encounter Visit Diagnoses Not on filedocumented in this encounter Care Teams Seo Expert Relationship Specialty Start Date End Date Charles Delgadillo MD [address] [place] [address] PCP - General Family Practice 09/05/10 documented as of this encounter
--- OUTSIDE RECORDS SUMMARY | 2025-09-22 19:53 | XMS_ITS | Encounter Summary ---
Author Organization [facility] Address [address] [place] [address] Care Team Providers Care Metallographer Name Role Phone Norman Caldera MD Primary Care Provider [phone] Reason for Visit * Reason Comments Med Refill Encounter Details Date Type Department Care Team (Late st Contact Info) Description 09/21/2025 Refill [facility] Endocrinology [facility] [address] [place] [address] [place] [address] Renea Echeverria PA [address] [facility] [address] [place] [address] Type 2 diabetes mellitus with stage 3a chronic kidney disease, with long-term current use of insulin ([facility]) Social History Tobacco Use Types Packs/Day Years [...] had money to buy more? Sometimes true 03/30/ 2023 In the past 12 months, did y [...] worry about transportation for future doctor visits, warehouse order picker medication, etc.? No 2024 Housing Stability [...] on file Legal Sex Female 2:09 AM GRAIN PICKER Gender Identity Not on file Sexual Orientation Not on file documented as of this encounter Plan of Treatment Upcoming Encounters Date Type Department Care Team (Late st Contact Info) Description 11/16/2025 11:40 AM GRAIN PICKER Office Visit [facility] [address] [phone] Norman Caldera MD [address] [phone] 02/01/2026 9:30 AM CDT Office Visit [facility] [place] [address] [place] [address] Deepthi Ray, DIRECTOR OF GOLF [address] [place] [address] documented as of this encounter Goals Goal Patient Goal Type Associated Problems Recent Progress Patient-Stated? Author HYPERTENSIO N CARE PLAN GOAL Care Plan PALLAVI MYC HYPERTENSION CARE PLAN PROBLEM No Norman Caldera MD documented as of this encounter Visit Diagnoses Diagnosis Type 2 diabetes mellitus with stage 3a chronic kidney disease, with long-term current use of insulin ([facility]) documented in this encounter Additional Health Concerns Active Problems Noted Date Diagnosed Date PALLAVI MYC HYPERTENSION CARE PLAN PROBLEM 4 documented as of this encounter Care Teams Metallographer Relationship Specialty Start Date End Date Norman Caldera MD [address] [place] [phone] PCP - General Family Practice 09/06/23 documented as of this encounter
--- OUTSIDE RECORDS SUMMARY | 2025-09-22 19:53 | XMS_ITS | Encounter Summary ---
Author Organization [facility] Address [address] [place] [address] Care Team Providers Care Signal Tower Director Name Role Phone Charles Delgadillo MD Primary Care Provider [phone] Encounter Details Date Type Department Care Team (Late st Contact Info) Description 03/31/2007 Outpatient Historical [facility] General and Trauma Surgery-[address] [place] [address] Andrew Richards MD 2000 [facility] [address] [place] [address] Follow-Up Examination, Following Unspecified Surgery (Primary Dx) Social History Tobacco Use Types Packs/Day Years Used Date Smoking Tobacco: Never Assessed Comments Unknown Sex and Gender Information Value Date Recorded Sex Assigned at Not on file Legal Sex Female 5:59 AM RESEARCH PROGRAM ASSISTANT Gender Identity Not on file Sexual Orientation Not on file documented as of this encounter Plan of Treatment Not on file documented as of this encounter Visit Diagnoses Diagnosis Follow-up examination, following unspecified surgery- Primary documented in this encounter Care Teams Signal Tower Director Relationship Specialty Start Date End Date Charles Delgadillo MD [address] [place] [address] PCP - General Family Practice 09/05/10 documented as of this encounter
--- OUTSIDE RECORDS SUMMARY | 2025-09-22 19:53 | XMS_ITS | Encounter Summary ---
Author Organization [facility] Address [address] [place] [address] Care Team Providers Care Legal Stenographer Name Role Phone Charles Delgaidllo MD Primary Care Provider [phone] Encounter Details Date Type Department Care Team (Latest Contact Info) Description 08/22/1999 Outpatient [facility] Family Medicine [place] 104 [facility] 60 [place] [address] Thomas Anne MD [address] [address] Acute sinusitis, unspecified (Primary Dx); Hypopotassemia Social History Tobacco Use Types Packs/Day Years Used Date Smoking Tobacco: Never Assessed Comments Unknown Sex and Gender Information Value Date Recorded Sex Assigned at Not on file Legal Sex Female 5:59 AM POCKET CLOSER Gender Identity Not on file Sexual Orientation Not on file documented as of this encounter Plan of Treatment Not on file documented as of this encounter Visit Diagnoses Diagnosis Acute sinusitis, unspecified- Primary Hypopotassemia documented in this encounter Care Teams Legal Stenographer Relationship Specialty Start Date End Date Charles Delgadillo MD [address] [place] [address] PCP - General Family Practice 12/14/10 documented as of this encounter
--- OUTSIDE RECORDS SUMMARY | 2025-09-22 19:53 | XMS_ITS | Encounter Summary ---
Author Organization [facility] Address [address] [place] [address] Care Team Providers Care Analyst Market Intelligence Name Role Phone Charles Delgadillo MD Primary Care Provider [phone] Encounter Details Date Type Department Care Team (Latest Contact Info) Description 01/30/1999 Outpatient [facility] Family Medicine [place] 104 [facility] 60 [place] [address] Thomas Anne MD [address] [address] Allergy, unspecified not elsewhere classified (Primary Dx) Social History Tobacco Use Types Packs/Day Years Used Date Smoking Tobacco: Never Assessed Comments Unknown Sex and Gender Information Value Date Recorded Sex Assigned at Not on file Legal Sex Female 5:59 AM FIRE PREVENTION CAPTAIN Gender Identity Not on file Sexual Orientation Not on file documented as of this encounter Plan of Treatment Not on file documented as of this encounter Visit Diagnoses Diagnosis Allergy, unspecified not elsewhere classified- Primary documented in this encounter Care Teams Analyst Market Intelligence Relationship Specialty Start Date End Date Charles Delgadillo MD [address] [place] [address] PCP - General Family Practice 09/05/10 documented as of this encounter
--- OUTSIDE RECORDS SUMMARY | 2025-09-22 19:53 | XMS_ITS | Encounter Summary ---
Author Organization [facility] Address [address] [place] [address] Care Team Providers Care Cardio Tech Name Role Phone Charles Delgadillo MD Primary Care Provider [phone] Encounter Details Date Type Department Care Team (Latest Contact Info) Description 06/24/2000 Outpatient [facility] Medicine [place] 104 [facility] 60 [place] [address] Thomas Anne MD [address] [phone] Myalgia and myositis, unspecified (Primary Dx); Depressive disorder, not elsewhere classified Social History Tobacco Use Types Packs/Day Years Used Date Smoking Tobacco: Never Assessed Comments Unknown Sex and Gender Information Value Date Recorded Sex Assigned at Not on file Legal Sex Female 5:59 AM GRADUATE TEACHING ASSISTANT Gender Identity Not on file Sexual Orientation Not on file documented as of this encounter Plan of Treatment Not on file documented as of this encounter Visit Diagnoses Diagnosis Myalgia and myositis, unspecified- Primary Mylagia and myositis, unspecified Depressive disorder, not elsewhere classified documented in this encounter Care Teams Cardio Tech Relationship Specialty Start Date End Date Charles Delgadillo MD [address], [place] [phone] PCP - General Family Practice 09/05/10 documented as of this encounter
--- OUTSIDE RECORDS SUMMARY | 2025-09-22 19:53 | XMS_ITS | Encounter Summary ---
Author Organization [facility] Address [address] [place] [address] Care Team Providers Care Superintendent Greens Name Role Phone Charles Delgadillo MD Primary Care Provider [phone] Encounter Details Date Type Department Care Team (Late st Contact Info) Description 04/11/2000 Outpatient Historical [facility] Rheumatology- [facility] [address] [place] [address] Mark Butler DO [address] [facility] [address] [place] [address] Rheumatism, unspecified and fibrositis (Primary Dx); Sleep disturbance, unspecified Social History Tobacco Use Types Packs/Day Years Used Date Smoking Tobacco: Never Assessed Comments Unknown Sex and Gender Information Value Date Recorded Sex Assigned at Not on file Legal Sex Female 5:59 AM FRONT DESK HOST Gender Identity Not on file Sexual Orientation Not on file documented as of this encounter Plan of Treatment Not on file documented as of this encounter Visit Diagnoses Diagnosis Rheumatism, unspecified and fibrositis- Primary Sleep disturbance, unspecified documented in this encounter Care Teams Superintendent Greens Relationship Specialty Start Date End Date Charles Delgadillo MD [address] [place] [phone] PCP - General Family Practice 09/05/10 documented as of this encounter
--- OUTSIDE RECORDS SUMMARY | 2025-09-22 19:53 | XMS_ITS | Encounter Summary ---
Author Organization [employer] [facility] Address [address] [place] [address] Care Team Providers Care Trauma Doctor Name Role Phone Charles Delgadillo MD Primary Care Provider [phone] Encounter Details Date Type Department Care Team [...] on file Legal Sex Female 5:59 AM FUGITIVE DETECTIVE Gender Identity Not on file Sexual Orientation Not on file documented as of this encounter Plan of Treatment Not on file documented as of this encounter Visit Diagnoses Diagnosis Chondromalacia- Primary Follow-up examination following surgery documented in this encounter Care Teams Trauma Doctor Relationship Specialty Start Date End Date Charles Delgadillo MD [address] [place] [address] PCP - General Family Practice 09/05/10 documented as of this encounter
--- OUTSIDE RECORDS SUMMARY | 2025-09-22 19:53 | XMS_ITS | Encounter Summary ---
Author Organization [facility] Address [address] [place] [address] Care Team Providers Care Assembler Unit Name Role Phone Charles Delgadillo MD Primary Care Provider [phone] Encounter Details Date Type Department Care Team (Late st Contact Info) Description 07/17/1999 Outpatient Historical [facility] [address] [place] [address] Mark Butler DO [address] [facility] [address] [place] [address] Myalgia and myositis, unspecified (Primary Dx); Sleep disturbance, unspecified Social History Tobacco Use Types Packs/Day Years Used Date Smoking Tobacco: Never Assessed Comments Unknown Sex and Gender Information Value Date Recorded Sex Assigned at Not on file Legal Sex Female 5:59 AM MEDICAL ART THERAPIST Gender Identity Not on file Sexual Orientation Not on file documented as of this encounter Plan of Treatment Not on file documented as of this encounter Visit Diagnoses Diagnosis Myalgia and myositis, unspecified- Primary Mylagia and myositis, unspecified Sleep disturbance, unspecified documented in this encounter Care Teams Assembler Unit Relationship Specialty Start Date End Date Charles Delgadillo MD [address], [place] [phone] PCP - General Family Practice 09/05/10 documented as of this encounter
--- OUTSIDE RECORDS SUMMARY | 2025-09-22 19:53 | XMS_ITS | Encounter Summary ---
Author Organization [facility] Address [address] Art: Epic Prelude ADT ANGELICA DAVIS [address] Care Team Providers Care Manipulator Operator Name Role Phone Charles Delgadillo MD Primary Care Provider [phone] Encounter Details Date Type Department Care Team (Late st Contact Info) Description 04/22/2007 Outpatient Historical Hugo Oliver MD [address] [place] [address] Social History Tobacco Use Types Packs/Day Years Used Date Smoking Tobacco: Never Assessed Comments Unknown Sex and Gender Information Value Date Recorded Sex Assigned at Not on file Legal Sex Female 5:59 AM PORTFOLIO MANAGER Gender Identity Not on file Sexual Orientation Not on file documented as of this encounter Plan of Treatment Not on file documented as of this encounter Visit Diagnoses Not on filedocumented in this encounter Care Teams Manipulator Operator Relationship Specialty Start Date End Date Charles eDlgadillo MD [address] [place] [address] PCP - General Family Practice 09/05/10 documented as of this encounter
--- OUTSIDE RECORDS SUMMARY | 2025-09-22 19:53 | XMS_ITS | Encounter Summary ---
Author Organization [facility] Address [address] [place] [address] Care Team Providers Care Admissions Manager Name Role Phone Charles Delgadillo MD Primary Care Provider [phone] Encounter Details Date Type Department Care Team (Latest Contact Info) Description 04/16/2007 Outpatient Historical [facility] [address] [place] [address] [place]ial [place], PAEdelC NO ADDRESS [...] file Legal Sex Female 5:59 AM MANAGER ENGLISH Gender Identity Not on file Sexual Orientation Not on file documented as of this encounter Plan of Treatment Not on file documented as of this encounter Visit Diagnoses Diagnosis Degeneration of lumbar or lumbosacral intervertebral disc- Primary Pain in joint, ankle and foot Stiffness of joint, not elsewhere classified, lower leg documented in this encounter Care Teams Admissions Manager Relationship Specialty Start Date End Date Charles Delgadillo MD [address] [place] [phone] PCP - General Family Practice 09/05/10 documented as of this encounter
--- OUTSIDE RECORDS SUMMARY | 2025-09-22 19:53 | XMS_ITS | Encounter Summary ---
Author Organization [facility] Address [address] [place] [address] Care Team Providers Care Claims Clerk Name Role Phone Charles Delgadillo MD Primary Care Provider [phone] Encounter Details Date Type Department Care Team (Latest Contact Info) Description 03/04/1998 Outpatient Historical [facility] Rheumatology- [facility] [address] [place] [address] Myalgia and myositis, unspecified (Primary Dx); Pain in joint, shoulder region Social History Tobacco Use Types Packs/Day Years Used Date Smoking Tobacco: Never Assessed Comments Unknown Sex and Gender Information Value Date Recorded Sex Assigned at Not on file Legal Sex Female 5:59 AM HOUSEMAID Gender Identity Not on file Sexual Orientation Not on file documented as of this encounter Plan of Treatment Not on file documented as of this encounter Visit Diagnoses Diagnosis Myalgia and myositis, unspecified- Primary Mylagia and myositis, unspecified Pain in joint, shoulder region documented in this encounter Care Teams Claims Clerk Relationship Specialty Start Date End Date Charles Delgadillo MD [address] [place] [address] PCP - General Family Practice 09/05/10 documented as of this encounter
--- OUTSIDE RECORDS SUMMARY | 2025-09-22 19:53 | XMS_ITS | Encounter Summary ---
Author Organization [facility] Address [address] [place] [address] Care Team Providers Care Rotating Field Assembler Name Role Phone Charles Delgadillo MD Primary Care Provider [phone] Encounter Details Date Type Department Care Team (Late [facility]) Description 10/17/2007 Outpatient Historical [facility] Orthopedics- [address] [place] [address] Melvin Nunez MD NO ADDRESS ON FILE Social History Tobacco Use Types Packs/Day Years Used Date Smoking Tobacco: Never Assessed Comments Unknown Sex and Gender Information Value Date Recorded Sex Assigned at Not on file Legal Sex Female 5:59 AM PROJECT CONTROLLER Gender Identity Not on file Sexual Orientation Not on file documented as of this encounter Progress Notes * Melvin Nunez - 10/17/2007 12:00 AM CST [facility] [address] [place], [place] PATIENT NAME: Moira Mckinnon CHART #: [id number] DATE OF SERVICE: 10/17/2007 DATE OF : [...] , P, dmt Job #: Document #: [id number] cc: ECT CONTROLLER documented in this encounter Procedure Notes * Melvin Nunez - 10/17/2007 12:00 AM CSTAssociated Order(s): IMAGING REPORT Patient Name: Moira Mckinnon Date: 10/17/2007 Chart Number: [id number] RADIOLOGY REPORT 1 1 Date: 10/17/2007 Patient [...] , P dmt Job #: Document #: [id number] cc: (Not official until signed) ECT CONTROLLER documented in this encounter Plan of Treatment Not on file documented as of this encounter Procedures Procedure Name Priority Date/Time Associated Diagnosis Comments IMAGING REPORT 10/27/2007 8:34 AM PROJECT CONTROLLER documented in this encounter Results * IMAGING REPORT (10/27/2007 8:34 AM PROJECT CONTROLLER) Narrative Transcriptions Melvin Nunez - 10/17/2007 12:00 AM CST Patient Name: Moira Mckinnon Date: 10/17/2007 Chart Number:[id number] RADIOLOGY REPORT 1 1 Date: 10/17/2007 Patient Name: Moira Mckinnon : 1950 Requesting Physician: Melvin Nunez M.D. RADIOGRAPHIC FINDINGS: She has x-rays obtained which reveal no acute bonyabnormalities, left ankle. There is no evidence of nonunion or otherproblems at the distal fibula today. Melvin Nunez M.D. [facility] Electronically Signed by Melvin Nunez M.D. 10/27/2007 08:34 , P dmt Job #: Document #: [id number] cc: (Not official until signed) Melvin Nunez MD DIAGNOSTIC IMAGING ORDERABLE S Final Result documented in this encounter Visit Diagnoses Not on filedocumented in this encounter Care Teams Rotating Field Assembler Relationship Specialty Start Date End Date Charles Delgadillo MD [address] [place] [address] PCP - General Family Practice 09/05/10 documented as of this encounter
--- OUTSIDE RECORDS SUMMARY | 2025-09-22 19:53 | XMS_ITS | Encounter Summary ---
Author Organization [facility] Address [address] [place] [address] Care Team Providers Care Regional Climate Change Analyst Name Role Phone Charles Delgadillo MD Primary Care Provider [phone] Encounter Details Date Type Department Care Team (Latest Contact Info) Description 09/10/2000 Outpatient [facility] Family Medicine [place] 104 [facility] 60 [place] [address] Thomas Anne MD [address] [address] Other and unspecified hyperlipidemia (Primary Dx); Osteoarthrosis, unspecified whether generalized or localized, unspecified site Social History Tobacco Use Types Packs/Day Years Used Date Smoking Tobacco: Never Assessed Comments Unknown Sex and Gender Information Value Date Recorded Sex Assigned at Not on file Legal Sex Female 5:59 AM ORGAN RECOVERY COORDINATOR Gender Identity Not on file Sexual Orientation Not on file documented as of this encounter Plan of Treatment Not on file documented as of this encounter Visit Diagnoses Diagnosis Other and unspecified hyperlipidemia- Primary Osteoarthrosis, unspecified whether generalized or localized, unspecified site documented in this encounter Care Teams Regional Climate Change Analyst Relationship Specialty Start Date End Date Charles Delgadillo MD [address] [address] PCP - General Family Practice 09/05/10 documented as of this encounter
--- OUTSIDE RECORDS SUMMARY | 2025-09-22 19:53 | XMS_ITS | Encounter Summary ---
Author Organization [facility] Address [address] [place] [address] Care Team Providers Care Livestock Rancher Name Role Phone Charles Delgadillo MD Primary Care Provider [phone] Encounter Details Date Type Department Care Team (Late st Contact Info) Description 07/03/2000 Outpatient Historical [facility] Rheumatology- [facility] [address] [place] [address] Mark Butler DO [address] [facility] [address] [place] [address] General symptoms NEC (Primary Dx); Undiff somatoform disord; Depressive disorder, not elsewhere classified Social History Tobacco Use Types Packs/Day Years Used Date Smoking Tobacco: Never Assessed Comments Unknown Sex and Gender Information Value Date Recorded Sex Assigned at Not on file Legal Sex Female 5:59 AM CLAY ROASTER Gender Identity Not on file Sexual Orientation Not on file documented as of this encounter Plan of Treatment Not on file documented as of this encounter Visit Diagnoses Diagnosis General symptoms NEC- Primary Other general symptoms 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
--- OUTSIDE RECORDS SUMMARY | 2025-09-22 19:53 | XMS_ITS | Encounter Summary ---
Author Organization [facility] Address [address] [place] [address] Care Team Providers Care Analytical Data Miner Name Role Phone Charles Delgadillo MD Primary Care Provider Encounter Details Date Type Department Care Team (Latest Contact Info) Description 08/07/2007 Outpatient Historical [facility] Medicine [address] [phone] Roz Capellan MD [address] [place] [phone] Nonspecific Abnormal Results of Liver Function Study (Primary Dx); Rheumatoid Arthritis (CMS/HCC); Unspecified Myalgia and Myositis; Spasm of Muscle Social History Tobacco Use Types Packs/Day Years Used Date Smoking Tobacco: Never Assessed Comments Unknown Sex and Gender Information Value Date Recorded Sex Assigned at Not on file Legal Sex Female 5:59 AM HEEL COVERER Gender Identity Not on file Sexual Orientation Not on file documented as of this encounter Plan of Treatment Not on file documented as of this encounter Visit Diagnoses Diagnosis Nonspecific abnormal results of liver function study- Primary Rheumatoid arthritis(714.0) (CMS/HCC) Rheumatoid arthritis Myalgia and myositis, unspecified Mylagia and myositis, unspecified Spasm of muscle documented in this encounter Care Teams Analytical Data Miner Relationship Specialty Start Date End Date Charles Delgadillo MD [address] [place] [address] PCP - General Family Practice 09/05/10 documented as of this encounter
--- OUTSIDE RECORDS SUMMARY | 2025-09-22 19:53 | XMS_ITS | Encounter Summary ---
Author Organization [facility] Address [address] [place] [address] Care Team Providers Care Safety Trainer Name Role Phone Charles Delgadillo MD Primary Care Provider [phone] Encounter Details Date Type Department Care Team (Latest Contact Info) Description 12/26/1998 Outpatient [facility] Family Medicine [place] 104 [facility] 60 [place] [address] Thomas Anne MD [address] [address] Unspecified essential hypertension (Primary Dx); Myalgia and myositis, unspecified Social History Tobacco Use Types Packs/Day Years Used Date Smoking Tobacco: Never Assessed Comments Unknown Sex and Gender Information Value Date Recorded Sex Assigned at Not on file 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
--- OUTSIDE RECORDS SUMMARY | 2025-09-22 19:53 | XMS_ITS | Encounter Summary ---
Author Organization [facility] Address [address] [place] [address] Care Team Providers Care End User Support Specialist Name Role Phone Charles Delgadillo MD Primary Care Provider [phone] Encounter Details Date Type Department Care Team (Latest Contact Info) Description 09/17/2000 Outpatient Historical [facility] Family Medicine [place] 104 [facility] 60 [place] [address] Thomas Anne MD [address] [facility] [address] [place] [address] Other specified urticaria (Primary Dx) Social History Tobacco Use Types Packs/Day Years Used Date Smoking Tobacco: Never Assessed Comments Unknown Sex and Gender Information Value Date Recorded Sex Assigned at Not on file Legal Sex Female 5:59 AM PREFITTER DOORS Gender Identity Not on file Sexual Orientation Not on file documented as of this encounter Plan of Treatment Not on file documented as of this encounter Visit Diagnoses Diagnosis Other specified urticaria- Primary documented in this encounter Care Teams End User Support Specialist Relationship Specialty Start Date End Date Charles Delgadillo MD [address] [place] [address] PCP - General Family Practice 09/05/10 documented as of this encounter
--- OUTSIDE RECORDS SUMMARY | 2025-09-22 19:53 | XMS_ITS | Encounter Summary ---
Author Organization [facility] Address [address] [place] [address] Care Team Providers Care Sales Clerk Food Name Role Phone Charles Delgadillo MD Primary Care Provider [phone] Encounter Details Date Type Department Care Team (Latest Contact Info) Description 04/16/2007 Outpatient [facility] [address] [place] [address] [place] [address] [address] Antonio Lopez MD [address] [place] [address] Unspecified Backache (Primary Dx) Social History Tobacco Use Types Packs/Day Years Used Date Smoking Tobacco: Never Assessed Comments Unknown Sex and Gender Information Value Date Recorded Sex Assigned at Not on file 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
--- OUTSIDE RECORDS SUMMARY | 2025-09-22 19:53 | XMS_ITS | Encounter Summary ---
Author Organization [facility] Address [address] [place] [address] Care Team Providers Care Tour Consultant Name Role Phone Charles Delgadillo MD Primary Care Provider [phone] Encounter Details Date Type Department Care Team (Latest Contact Info) Description 06/10/2007 Outpatient Historical [facility] [address] [place] [address] Melvin Nunez MD NO ADDRESS ON FILE Closed Fracture of Lateral Malleolus (Primary Dx); Unspecified Site of Ankle Sprain and Strain Social History Tobacco Use Types Packs/Day Years Used Date Smoking Tobacco: Never Assessed Comments Unknown Sex and Gender Information Value Date Recorded Sex Assigned at Not on file 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
--- OUTSIDE RECORDS SUMMARY | 2025-09-22 19:53 | XMS_ITS | Encounter Summary ---
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
--- OUTSIDE RECORDS SUMMARY | 2025-09-22 19:53 | XMS_ITS | Encounter Summary ---
Author Organization [facility] Address [address] [place] [address] Care Team Providers Care Install And Repair Technician Name Role Phone Charles Delgadillo MD Primary Care Provider [phone] Encounter Details Date Type Department Care Team (Latest Contact Info) Description 10/10/2000 Outpatient 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
--- OUTSIDE RECORDS SUMMARY | 2025-09-22 19:53 | XMS_ITS | Encounter Summary ---
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
--- OUTSIDE RECORDS SUMMARY | 2025-09-22 19:53 | XMS_ITS | Encounter Summary ---
Author Organization [facility] Address [address] [place] [address] Care Team Providers Care Utilization Management Rn Name Role Phone Charles Delgadillo MD Primary Care Provider [phone] Encounter Details Date Type Department Care Team (Latest Contact Info) Description 04/09/2000 Outpatient [facility] [place] 104 [facility] 60 [place] [phone] Thomas Anne MD [address] [phone] Pain in joint, shoulder region (Primary Dx); Myalgia and myositis, unspecified Social History Tobacco Use Types Packs/Day Years Used Date Smoking Tobacco: Never Assessed Comments Unknown Sex and Gender Information Value Date Recorded Sex Assigned at Not on file 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
--- OUTSIDE RECORDS SUMMARY | 2025-09-22 19:53 | XMS_ITS | Encounter Summary ---
Author Organization [facility] Address [address] [place] [address] Care Team Providers Care Collector Of Port Name Role Phone Charles Delgadillo MD Primary Care Provider [phone] Encounter Details Date Type Department Care Team (Late st Contact Info) Description 01/12/2000 Outpatient Historical [facility] Rheumatology- [facility] [address] [place] [address] Mark Butler DO [address] [facility] [address] [place] [address] Rheumatism, unspecified and fibrositis (Primary Dx); Disturbance of salivary secretion Social History Tobacco Use Types Packs/Day Years Used Date Smoking Tobacco: Never Assessed Comments Unknown Sex and Gender Information Value Date Recorded Sex Assigned at Not on file Legal Sex Female 5:59 AM AIR 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
--- OUTSIDE RECORDS SUMMARY | 2025-09-22 19:53 | XMS_ITS | Encounter Summary ---
Author Organization [facility] Address [address] [place] [address] Care Team Providers Care Net Software Developer Name Role Phone Charles Delgadillo MD Primary Care Provider [phone] Encounter Details Date Type Department Care Team (Late st Contact Info) Description 09/30/2008 Outpatient Historical [facility] [address] [place] [address] [place] [address] Fernando Jay, Paul Swain MD [address] [place] [address] Social History Tobacco Use Types Packs/Day Years Used Date Smoking Tobacco: Never Alcohol Use Standard Drinks/Week Comments No 0 (1 standard drink = 0.6 oz pur e alcohol) Comments No Sex and Gender Information Value Date Recorded Sex Assigned at Not on file Legal Sex Female 5:59 AM APPLICATIONS COORDINATOR Gender Identity Not on file Sexual [...] Comments DIFFERENTIAL, MANUAL Stat 09/30/2008 4:37 PM APPLICATIONS COORDINATOR CBC WITH DIFFERENTIAL Stat 09/30/2008 4:37 PM APPLICATIONS COORDINATOR COMPREHENSIVE METABOLIC PANEL Stat 09/30/2008 4:37 PM APPLICATIONS COORDINATOR documented in this encounter Results * (ABNORMAL) DIFFERENTIAL, MANUAL (09/30/2008 4:37 PM APPLICATIONS COORDINATOR) Pathologist [facility] [place] ANISOCYTOSIS 1+(A) None Seen [facility] LYMPHOCYTES 38 24 - 44 % [facility] PLATELET EST. Increased (A) Normal [facility] MONOCYTE 10 4 - 10 % [facility] NEUTROPHILS, SEG 48 36 - 66 % [facility] RBC MORPHOLOGY Abnormal( A) Normal [facility] EOSINOPHILS 4(H) 0 - 3 % [facility] Blood specimen (specimen) 09/30/2008 4:37 PM APPLICATIONS COORDINATOR 09/30/2008 5:01 PM APPLICATIONS COORDINATOR Narrative INTERFACE SYSTEM - 09/30/2008 5:21 PM APPLICATIONS COORDINATOR Differential ordered by policy. Paul King Jr., MD HEMATOLOGY ORDERABLES C OM Final Result INTERFACE SYSTEM Refer to clinic/hospital department [facility] CLIA# [id number] [address] [place] [address] * (ABNORMAL) CBC WITH DIFFERENTIAL (09/30/2008 4:37 PM APPLICATIONS COORDINATOR) Pathologist [facility] [place] MPV 10.2 8.9 - 12.8 Fl [facility] MCV 90.3 84.0 - 103.0 Fl [facility] HEMOGLOBIN 13.8 12.0 - 16.0 g/dL [facility] RDW 14.5 11.0 - 14.5 % [facility] WBC 16.6(H) 4.8 - 10.8 K/ul [facility] MCH 29.9 27.0 - 34.0 pg [facility] HEMATOCRIT 41.7 36.0 - 46.0 % [facility] PLATELETS 521(H) 140 - 440 K/ul [facility] RBC 4.62 4.20 - 5.40 Mil/ul [facility] MCHC 33.1 30.0 - 35.0 g/dL [facility] Blood specimen (specimen) 09/30/2008 4:37 PM APPLICATIONS COORDINATOR 09/30/2008 5:01 PM APPLICATIONS COORDINATOR us Paul King Jr., MD HEMATOLOGY ORDERABLES E dited INTERFACE SYSTEM Refer to clinic/hospital department [facility] CLIA# [id number] [address] [place] [address] * (ABNORMAL) COMPREHENSIVE METABOLIC PANEL (09/30/2008 4:37 PM APPLICATIONS COORDINATOR) ALBUMIN 4.7 3.5 - 5.0 g/dL [facility] POTASSIUM 4.0 3.5 - 5.0 mEq/L [facility] GLOBULIN (CALC) 2.6 2.4 - 3.9 g/dL [facility] CREATININE 1.2 0.7 - 1.2 mg/dL [facility] CALCIUM 9.6 8.4 - 10.5 mg/dL [facility] OSMOLALITY, CALCULATED 300(H) 275 - 295 mOsm/Kg [facility] ALT 49(H) 4 - 36 IU/L [facility] GLUCOSE 97 70 - 110 mg/dL [facility] CHLORIDE 110 95 - 110 mEq/L [facility] ALBUMIN/GLOBULIN RATIO 1.8 1.0 - 2.3 [facility] ALKALINE PHOSPHATASE 102(H) 25 - 100 U/L [facility] SODIUM 144 136 - 145 mEq/L [facility] BILIRUBIN TOTAL 0.2(L) 0.3 - 1.2 mg/dL [facility] TOTAL PROTEIN 7.3 6.3 - 8.2 g/dL [facility] BUN 25(H) 7 - 17 mg/dL [facility] AST 37(H) 8 - 33 U/L [facility] CO2 26 22 - 32 mmol/l [facility] ANION GAP 12 9 - 20 mEq/L [facility] Blood specimen (specimen) 09/30/2008 4:37 PM APPLICATIONS COORDINATOR 09/30/2008 5:01 PM APPLICATIONS COORDINATOR us Paul King Jr., MD CHEMISTRY ORDERABLES Fi nal Result INTERFACE SYSTEM Refer to clinic/hospital department [facility] CLIA# [id number] [facility] [place] [address] documented in this encounter Visit Diagnoses Not on filedocumented in this encounter Care Teams Net Software Developer Relationship Specialty Start Date End Date Charles Delgadillo MD [address] [place] [address] PCP - General Family Practice 09/05/10 documented as of this encounter
--- OUTSIDE RECORDS SUMMARY | 2025-09-22 19:53 | XMS_ITS | Encounter Summary ---
Author Organization [facility] Address [address] [facility] Attn: Epic Prelude ADT ANGELICA DAVIS [address] Care Team Providers Care County Attorney Name Role Phone Charles Delgadillo MD Primary Care Provider [phone] Encounter Details Date Type Department Care Team (Late st Contact Info) Description 10/10/2000 Outpatient Historical Thomas Anne MD [address] [phone] Social History Tobacco Use Types Packs/Day Years Used Date Smoking Tobacco: Never Assessed Comments Unknown Sex and Gender Information Value Date Recorded Sex Assigned at Not on file 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
--- OUTSIDE RECORDS SUMMARY | 2025-09-22 19:53 | XMS_ITS | Encounter Summary ---
Author Organization [facility] Address [address] [place] [address] Care Team Providers Care Garden Consultant Name Role Phone Charles Delgadillo MD Primary Care Provider [phone] Encounter Details Date Type Department Care Team (Latest Contact Info) Description 10/23/1999 Outpatient [facility] [place] 104 [facility] 60 [place] [address] Thomas Anne MD [address] [phone] Dizziness and giddiness (Primary Dx); Nasal/sinus dis NEC; Esophageal reflux Social History Tobacco Use Types Packs/Day Years Used Date Smoking Tobacco: Never Assessed Comments Unknown Sex and Gender Information Value Date Recorded Sex Assigned at Not on file 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
--- OUTSIDE RECORDS SUMMARY | 2025-09-22 19:53 | XMS_ITS | Encounter Summary ---
Author Organization [facility] Address [address] [place] [address] Care Team Providers Care Shell Mold Bonding Machine Operator Name Role Phone Charles Delgadillo MD Primary Care Provider [phone] Encounter Details Date Type Department Care Team (Latest Contact Info) Description 10/20/2007 Outpatient Historical [facility] Pain Management Procedures [address] [place] [phone] Antonio Lopez MD [address] [place] [address] Other Postprocedural Status; Esophageal Reflux; Unspecified Arthropathy, [...] file Legal Sex Female 5:59 AM CAREER COORDINATOR Gender Identity Not on file Sexual Orientation Not on file documented as of this encounter Plan of Treatment Not on file documented as of this encounter Procedures Procedure Name Priority Date/Time Associated Diagnosis Comments XR LUMBAR SPINE 2 OR 3 VW Routine 10/21/2007 3:59 PM CAREER COORDINATOR documented in this encounter Results * XR LUMBAR SPINE 2 OR 3 VW (10/21/2007 3:59 PM CAREER COORDINATOR) Anatomical Region Laterality Modality Spine Other 10/21/2007 3:59 PM CAREER COORDINATOR Narrative 10/21/2007 3:59 PM CAREER COORDINATOR Two views of the lumbar spine are [...] hypertension documented in this encounter Care Teams Shell Mold Bonding Machine Operator Relationship Specialty Start Date End Date Charles Delgadillo MD [address], [place] [address] PCP - General Family Practice 09/05/10 documented as of this encounter
--- OUTSIDE RECORDS SUMMARY | 2025-09-22 19:53 | XMS_ITS | Encounter Summary ---
Author Organization [facility] Address [address] [place] [address] Care Team Providers Care Forming Machine Tender Name Role Phone Charles Delgadillo MD Primary Care Provider [phone] Encounter Details Date Type Department Care Team (Latest Contact Info) Description 06/27/2007 Outpatient Historical [facility] [address] [phone] Roz Capellan MD [address] [place] [phone] Insomnia, Unspecified (Primary Dx); Unspecified Arthropathy, Site Unspecified; Unspecified Constipation; Lower Extremity Embolism (CMS/HCC); Vaccine for Influenza Social History Tobacco Use Types Packs/Day Years Used Date Smoking Tobacco: Never Assessed Comments Unknown Sex and Gender Information Value Date Recorded Sex Assigned at Not on file 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
--- OUTSIDE RECORDS SUMMARY | 2025-09-22 19:53 | XMS_ITS | Encounter Summary ---
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) Social History Tobacco Use Types Packs/Day Years Used Date Smoking Tobacco: Never Assessed Comments Unknown Sex and Gender Information Value Date Recorded Sex Assigned at Not on file 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
--- OUTSIDE RECORDS SUMMARY | 2025-09-22 19:53 | XMS_ITS | Encounter Summary ---
Author Organization [facility] Address [address] [place] [address] Care Team Providers Care Recorder Of Deeds Name Role Phone Charles Delgadillo MD Primary Care Provider [phone] Encounter Details Date Type Department Care Team (Late st Contact Info) Description 01/05/2008 Outpatient Historical [facility] [address] [place] [phone] Antonio Lopez MD [address] [place] [address] Social History Tobacco Use Types Packs/Day Years Used Date Smoking Tobacco: Never Assessed Comments Unknown Sex and Gender Information Value Date Recorded Sex Assigned at Not on file 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
--- OUTSIDE RECORDS SUMMARY | 2025-09-22 19:53 | XMS_ITS | Encounter Summary ---
Author Organization [facility] Address [address] [place] [address] Care Team Providers Care Shoe Lining Fitter Name Role Phone Charles Delgadillo MD Primary Care Provider [phone] Encounter Details Date Type Department Care Team (Late st Contact Info) Description 01/27/2008 Outpatient [facility] [address] [place] [address] [facility] [address] [place] [address] Vasiliy Xiao MD [address] [facility] [address] [place] [phone] Social History Tobacco Use Types Packs/Day Years Used Date Smoking Tobacco: Never Assessed Comments No Sex and Gender Information Value Date Recorded Sex Assigned at Not on file Legal Sex Female 5:59 AM PSYCH NP Gender Identity Not on file Sexual Orientation Not on file documented as of this encounter Plan of Treatment Not on file documented as of this encounter Visit Diagnoses Not on filedocumented in this encounter Care Teams Shoe Lining Fitter Relationship Specialty Start Date End Date Charles Delgadillo MD [address] [place] [address] PCP - General Family Practice 09/05/10 documented as of this encounter
--- OUTSIDE RECORDS SUMMARY | 2025-09-22 19:53 | XMS_ITS | Encounter Summary ---
Author Organization [facility] Address [address] [place] [address] Care Team Providers Care Semi Truck Driver Name Role Phone Charles Delgadillo MD Primary Care Provider [phone] Encounter Details Date Type Department Care Team (Late st Contact Info) Description 12/14/2008 Ancillary Orders [facility] [address] 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
--- OUTSIDE RECORDS SUMMARY | 2025-09-22 19:53 | XMS_ITS | Encounter Summary ---
Author Organization [facility] Address [address] [place] [address] Care Team Providers Care Machine I Engraver Name Role Phone Charles Delgadillo MD Primary Care Provider Encounter Details Date Type Department Care Team (Latest Contact Info) Description 05/01/1999 Outpatient [facility] Medicine [place] 104 [facility] 60 [place] [address] Thomas Anne MD [address] [address] Cervicalgia (Primary Dx); Myalgia and myositis, unspecified Social History Tobacco Use Types Packs/Day Years Used Date Smoking Tobacco: Never Assessed Comments Unknown Sex and Gender Information Value Date Recorded Sex Assigned at Not on file Legal Sex Female 5:59 AM INSIDE UPHOLSTERER Gender Identity Not on file Sexual Orientation Not on file documented as of this encounter Plan of Treatment Not on file documented as of this encounter Visit Diagnoses Diagnosis Cervicalgia- Primary Myalgia and myositis, unspecified Mylagia and myositis, unspecified documented in this encounter Care Teams Machine I Engraver Relationship Specialty Start Date End Date Charles Delgadillo MD [address] [place] [address] PCP - General Family Practice 09/05/10 documented as of this encounter
--- OUTSIDE RECORDS SUMMARY | 2025-09-22 19:53 | XMS_ITS | Encounter Summary ---
Author Organization [facility] Address [address] [place] [address] Care Team Providers Care Retoucher Photoengraving Name Role Phone Charles Delgadillo MD Primary Care Provider [phone] Encounter Details Date Type Department Care Team (Late st Contact Info) Description 11/19/2007 Outpatient Historical [facility] Medicine [address] [phone] Social History Tobacco Use Types Packs/Day Years Used Date Smoking Tobacco: Never Assessed Comments Unknown Sex and Gender Information Value Date Recorded Sex Assigned at Not on file Legal Sex Female 5:59 AM MANAGER PAPER Gender Identity Not on file Sexual Orientation Not on file documented as of this encounter Plan of Treatment Not on file documented as of this encounter Visit Diagnoses Not on filedocumented in this encounter Care Teams Retoucher Photoengraving Relationship Specialty Start Date End Date Charles Delgadillo MD [address] [address] PCP - General Family Practice 09/05/10 documented as of this encounter
--- OUTSIDE RECORDS SUMMARY | 2025-09-22 19:54 | XMS_ITS | Encounter Summary ---
Author Organization [facility] Address [address] [place] [address] Care Team Providers Care Automotive Wholesale Parts Advisor Name Role Phone Charles Delgadillo MD Primary Care Provider [phone] Encounter Details Date Type Department Care Team (Latest Contact Info) Description 01/22/2003 Outpatient [facility] Family Medicine [place] 104 [facility] 60 [place] [phone] Thomas Anne MD [address] [phone] JOINT PAIN-SHLDER (Primary Dx); CERVICALGIA Social History Tobacco Use Types Packs/Day Years Used Date Smoking Tobacco: Never Assessed Comments Unknown Sex and Gender Information Value Date Recorded Sex Assigned at Not on file Legal Sex Female 5:59 AM COMMUNICATIONS DEPARTMENT CHAIRPERSON Gender Identity Not on file Sexual Orientation Not on file documented as of this encounter Plan of Treatment Not on file documented as of this encounter Visit Diagnoses Diagnosis Pain in joint, shoulder region- Primary Cervicalgia documented in this encounter Care Teams Automotive Wholesale Parts Advisor Relationship Specialty Start Date End Date Charles Delgadillo MD [address] [place] [address] PCP - General Family Practice 09/05/10 documented as of this encounter
--- OUTSIDE RECORDS SUMMARY | 2025-09-22 19:54 | XMS_ITS | Encounter Summary ---
Author Organization [facility] Address [address] [place] [address] Care Team Providers Care Furniture Removalist Name Role Phone Charles Delgadillo MD Primary Care Provider [phone] Encounter Details Date Type Department Care Team (Late st Contact Info) Description 09/11/2001 Outpatient Historical [facility] Rheumatology- [facility] [place] [address] [place] [address] Mark Butler DO [address] [facility] [address] [place] [address] MUSCLE/LIGAMENT DIS NOS (Primary Dx); ABN SERUM ENZY LEVEL NEC; Elevated sediment rate Social History Tobacco Use Types Packs/Day Years Used Date Smoking Tobacco: Never Assessed Comments Unknown Sex and Gender Information Value Date Recorded Sex Assigned at Not on file Legal Sex Female 5:59 AM GRAILS WEB APPLICATION DEVELOPER Gender Identity Not on file Sexual Orientation Not on file documented as of this encounter Plan of Treatment Not on file documented as of this encounter Visit Diagnoses Diagnosis Unspecified disorder of muscle, ligament, and fascia- Primary Other nonspecific abnormal serum enzyme levels Elevated sediment rate Elevated sedimentation rate documented in this encounter Care Teams Furniture Removalist Relationship Specialty Start Date End Date Charles Delgadillo MD [address], [place] [address] PCP - General Family Practice 09/05/10 documented as of this encounter
--- OUTSIDE RECORDS SUMMARY | 2025-09-22 19:54 | XMS_ITS | Encounter Summary ---
Author Organization [facility] Address [address] [place] [address] Care Team Providers Care Spring Intern Name Role Phone Charles Delgadillo MD Primary Care Provider [phone] Encounter Details Date Type Department Care Team (Latest Contact Info) Description 05/14/2003 Outpatient Historical [facility] Family Medicine [place] 104 [facility] 60 [place] [address] Thomas Anne MD [address] [phone] HYPOTHYROIDISM NOS (Primary Dx) Social History Tobacco Use Types Packs/Day Years Used Date Smoking Tobacco: Never Assessed Comments Unknown Sex and Gender Information Value Date Recorded Sex Assigned at Not on file Legal Sex Female 5:59 AM SHAPE BRICK MOLDER Gender Identity Not on file Sexual Orientation Not on file documented as of this encounter Plan of Treatment Not on file documented as of this encounter Visit Diagnoses Diagnosis Unspecified hypothyroidism- Primary documented in this encounter Care Teams Spring Intern Relationship Specialty Start Date End Date Charles Delgadillo MD [address] [place] [address] PCP - General Family Practice 09/05/10 documented as of this encounter
--- OUTSIDE RECORDS SUMMARY | 2025-09-22 19:54 | XMS_ITS | Encounter Summary ---
Author Organization [employer] [facility] Address [address] [place] [address] Care Team Providers Care Clerk Television Production Name Role Phone Charles Delgadillo MD Primary Care Provider [phone] Reason for Referral * Radiology Services (Routine) - Closed Specialty Diagnoses / Procedures Referred By Contchrissy t Referred To Contact Diagnoses Visit for screening mammogram Procedures MAMMO 3D SCREEN BILATERAL MOBILE Charles Delgadillo MD [address] [place] [address] Phone: tel: fax: Referral ID Status Reason Start Date Expiration Date Visits Re quested Visits Authorized [id number] Closed 11/06/2018 12/07/2019 1 1 MATIC NAILING MACHINE OPERATOR Encounter Details Date Type Department Care Team (Latest Contact Info) Description 11/06/2018 Ancillary Orders [facility] [place] [address] [address] Charles Delgadillo MD [address] [place] [address] Visit for screening mammogram Social History Tobacco Use Types Packs/Day Years Used Date Smoking Tobacco: Never Smokeless Tobacco: Never Alcohol Use Standard Drinks/Week Comments No 0 (1 standard drink = 0.6 oz pur e alcohol) Comments No Sex and Gender Information Value Date Recorded Sex Assigned at Not on file Legal Sex Female 5:59 AM AUTOMATIC NAILING MACHINE OPERATOR Gender Identity Not on file Sexual Orientation Not on file 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
--- OUTSIDE RECORDS SUMMARY | 2025-09-22 19:54 | XMS_ITS | Encounter Summary ---
Author Organization [facility] Address [address] [place] [address] Care Team Providers Care Hydro Generation Manager Name Role Phone Charles Delgadillo MD Primary Care Provider [phone] Encounter Details Date Type Department Care Team (Late st Contact Info) Description 10/16/2001 Outpatient Historical [facility] Rheumatology- [facility] [address] [place] [address] Mark Butler DO [address] [facility] [address] [place] [address] MYOPATHY NOS (Primary Dx); RHEUMATISM NOS Social History Tobacco Use Types Packs/Day Years Used Date Smoking Tobacco: Never Assessed Comments Unknown Sex and Gender Information Value Date Recorded Sex Assigned at Not on file Legal Sex Female 5:59 AM DAILY SALES AUDIT CLERK Gender Identity Not on file Sexual Orientation Not on file documented as of this encounter Plan of Treatment Not on file documented as of this encounter Visit Diagnoses Diagnosis Myopathy, unspecified- Primary Rheumatism, unspecified and fibrositis documented in this encounter Care Teams Hydro Generation Manager Relationship Specialty Start Date End Date Charles Delgadillo MD [address] [place] [address] PCP - General Family Practice 09/05/10 documented as of this encounter
--- OUTSIDE RECORDS SUMMARY | 2025-09-22 19:54 | XMS_ITS | Encounter Summary ---
Author Organization [facility] Address [address] [place] [address] Care Team Providers Care Gold Buyer Name Role Phone Charles Delgadillo MD Primary Care Provider [phone] Encounter Details Date Type Department Care Team (Latest Contact Info) Description 11/03/2001 Outpatient [facility] Family Medicine [place] 104 [facility] 60 [place] [phone] Thomas Anne MD [address] [phone] URIN TRACT INFECTION NOS (Primary Dx) Social History Tobacco Use Types Packs/Day Years Used Date Smoking Tobacco: Never Assessed Comments Unknown Sex and Gender Information Value Date Recorded Sex Assigned at Not on file Legal Sex Female 5:59 AM PROGRAMMING COORDINATOR Gender Identity Not on file Sexual Orientation Not on file documented as of this encounter Plan of Treatment Not on file documented as of this encounter Visit Diagnoses Diagnosis Urinary tract infection, site not specified- Primary documented in this encounter Care Teams Gold Buyer Relationship Specialty Start Date End Date Charles Delgadillo MD [address] [place] [address] PCP - General Family Practice 09/05/10 documented as of this encounter
--- OUTSIDE RECORDS SUMMARY | 2025-09-22 19:54 | XMS_ITS | Encounter Summary ---
Author Organization [facility] Address [address] [place] [address] Care Team Providers Care Plastic Outfitter Name Role Phone Charles Delgadillo MD Primary Care Provider [phone] Encounter Details Date Type Department Care Team (Latest Contact Info) Description 08/17/2002 Outpatient [facility] Medicine [place] 104 [facility] 60 [place] [address] Thomas Anne MD [address] [phone] MYALGIA AND MYOSITIS NOS (Primary Dx); ESOPHAGEAL REFLUX Social History Tobacco Use Types Packs/Day Years Used Date Smoking Tobacco: Never Assessed Comments Unknown Sex and Gender Information Value Date Recorded Sex Assigned at Not on file Legal Sex Female 5:59 AM SEWER PIPE SORTER Gender Identity Not on file Sexual Orientation Not on file documented as of this encounter Plan of Treatment Not on file documented as of this encounter Visit Diagnoses Diagnosis Myalgia and myositis, unspecified- Primary Mylagia and myositis, unspecified Esophageal reflux documented in this encounter Care Teams Plastic Outfitter Relationship Specialty Start Date End Date Charles Delgadillo MD [address] [place] [phone] PCP - General Family Practice 09/05/10 documented as of this encounter
--- OUTSIDE RECORDS SUMMARY | 2025-09-22 19:54 | XMS_ITS | Encounter Summary ---
Author Organization [facility] Address [address] [place] [address] Care Team Providers Care Applied Psychology Professor Name Role Phone Charles Delgadillo MD Primary Care Provider [phone] Encounter Details Date Type Department Care Team (Latest Contact Info) Description 01/28/2001 Outpatient [facility] Family Medicine [place] 104 [facility] 60 [place] [address] Thomas Anne MD [address] [address] Other specified arthropathy, site unspecified (Primary Dx); Edema Social History Tobacco Use Types Packs/Day Years Used Date Smoking Tobacco: Never Assessed Comments Unknown Sex and Gender Information Value Date Recorded Sex Assigned at Not on file Legal Sex Female 5:59 AM AIRPLANE PILOT Gender Identity Not on file Sexual Orientation Not on file documented as of this encounter Plan of Treatment Not on file documented as of this encounter Visit Diagnoses Diagnosis Other specified arthropathy, site unspecified- Primary Edema documented in this encounter Care Teams Applied Psychology Professor Relationship Specialty Start Date End Date Charles Delgadillo MD [address] [place] [phone] PCP - General Family Practice 09/05/10 documented as of this encounter
--- OUTSIDE RECORDS SUMMARY | 2025-09-22 19:54 | XMS_ITS | Encounter Summary ---
Author Organization [facility] Address [address] [place] [address] Care Team Providers Care Director Of Student Life Name Role Phone Norman Caldera MD Primary Care Provider [phone] Encounter Details Date Type Department Care Team (Late st Contact Info) Description 09/20/2025 Orders Only [facility] [address] [place] [address] Provider, Abstract NO ADDRESS ON [...] worry about transportation for future doctor visits, shrimp picker medication, etc.? No 2024 Housing Stability [...] on file Legal Sex Female 2:09 AM MARINE STEAMFITTER Gender Identity Not on file Sexual Orientation Not on file documented as of this encounter Plan of Treatment Upcoming Encounters Date Type Department Care Team (Late st Contact Info) Description 11/16/2025 11:40 AM MARINE STEAMFITTER Office Visit [facility] Family Medicine [place] [address] [phone] Norman Caldera MD [address] [phone] 02/01/2026 9:30 AM CDT Office Visit [facility] Gastroenterology- [place] [address] [phone] Deepthi Ray NP [address] [place] [address] documented as of this encounter Goals Goal Patient Goal Type Associated Problems Recent Progress Patient-Stated? Author HYPERTENSIO N CARE PLAN GOAL Care Plan PALLAVI MYC HYPERTENSION CARE PLAN PROBLEM No Norman Caldera MD documented as of this encounter Procedures Procedure Name Priority Date/Time Associated Diagnosis Comments COMPREHENSIVE METABOLIC PANEL Routine 09/18/2025 11:09 AM MARINE STEAMFITTER documented in this encounter Results * COMPREHENSIVE METABOLIC PANEL (09/18/2025 11:09 AM MARINE STEAMFITTER) Blood us Abstract Provider CHEMISTRY ORDERABLES Final Res ult documented in this encounter Visit Diagnoses Not on filedocumented in this encounter Additional Health Concerns Active Problems Noted Date Diagnosed Date PALLAVI MYC HYPERTENSION CARE PLAN PROBLEM 4 documented as of this encounter Care Teams Director Of Student Life Relationship Specialty Start Date End Date Norman Caldera MD [address] [place] [address] PCP - General Family Practice 09/06/23 documented as of this encounter
--- OUTSIDE RECORDS SUMMARY | 2025-09-22 19:54 | XMS_ITS | Encounter Summary ---
Author Organization [facility] Address [address] [place] [address] Care Team Providers Care Inspector Scales Name Role Phone Charles Delgadillo MD Primary Care Provider [phone] Encounter Details Date Type Department Care Team (Latest Contact Info) Description 08/29/2001 Outpatient [facility] Family Medicine [place] 104 [facility] 60 [place] [address] Thomas Anne MD [address] [address] MYALGIA AND MYOSITIS NOS (Primary Dx); ABN SERUM ENZY LEVEL NEC Social History Tobacco Use Types Packs/Day Years Used Date Smoking Tobacco: Never Assessed Comments Unknown Sex and Gender Information Value Date Recorded Sex Assigned at Not on file Legal Sex Female 5:59 AM EMAIL PRODUCTION SPECIALIST Gender Identity Not on file Sexual Orientation Not on file documented as of this encounter Plan of Treatment Not on file documented as of this encounter Visit Diagnoses Diagnosis Myalgia and myositis, unspecified- Primary Mylagia and myositis, unspecified Other nonspecific abnormal serum enzyme levels documented in this encounter Care Teams Inspector Scales Relationship Specialty Start Date End Date Charles Delgadillo MD [address], [place] [address] PCP - General Family Practice 09/05/10 documented as of this encounter
--- OUTSIDE RECORDS SUMMARY | 2025-09-22 19:54 | XMS_ITS | Encounter Summary ---
Author Organization [facility] Address [address] [place] [address] Care Team Providers Care Correctional Lieutenant Name Role Phone Charles Delgadillo MD Primary Care Provider [phone] Encounter Details Date Type Department Care Team (Latest Contact Info) Description 10/22/2001 Outpatient Historical [facility] Family Medicine [place] 104 [facility] 60 [place] [phone] Jameel Rodriguez DO NO ADDRESS ON FILE URIN TRACT INFECTION NOS (Primary Dx) Social History Tobacco Use Types Packs/Day Years Used Date Smoking Tobacco: Never Assessed Comments Unknown Sex and Gender Information Value Date Recorded Sex Assigned at Not on file Legal Sex Female 5:59 AM CARDIOVASCULAR SURGEON Gender Identity Not on file Sexual Orientation Not on file documented as of this encounter Plan of Treatment Not on file documented as of this encounter Visit Diagnoses Diagnosis Urinary tract infection, site not specified- Primary documented in this encounter Care Teams Correctional Lieutenant Relationship Specialty Start Date End Date Charles Delgadillo MD [address] [place] [address] PCP - General Family Practice 09/05/10 documented as of this encounter
--- OUTSIDE RECORDS SUMMARY | 2025-09-22 19:54 | XMS_ITS | Encounter Summary ---
Author Organization [employer] [facility] Address [address] [place] [address] Care Team Providers Care Denture Model Maker Name Role Phone Charles Delgadillo MD Primary Care Provider [phone] Reason for Referral * Outpatient Services (Routine) - Closed Specialty Diagnoses / Procedures Referred By Tisha troncoso Referred To Contact Oncology Diagnoses Other screening mammogram Procedures MAMMO DIGITAL SCREEN BILAT MOBILE Shanika Zavala FNP [address] [place] [address] Phone: tel: fax: [facility] [place] [address] [address] Phone: tel: Referral ID Status Reason Start Date Expiration Date Visits Re quested Visits Authorized [id number] Closed 05/04/2013 06/04/2014 1 1 Encounter Details Date Type Department Care Team (Latest Contact Info) Description 05/04/2013 Ancillary Orders [facility] [address] [address] Shanika Zavala FNP [address] [place] [address] Other screening mammogram (Primary Dx) Social History Tobacco Use Types Packs/Day Years Used Date Smoking Tobacco: Never Smokeless Tobacco: Never Alcohol Use Standard Drinks/Week Comments No 0 (1 standard drink = 0.6 oz pur e alcohol) Comments No Sex and Gender Information Value Date Recorded Sex Assigned at Not on file Legal Sex Female 5:59 AM INSPECTOR FIREARMS Gender Identity Not on file Sexual Orientation Not on file 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 us Shanika Zavala RUBBER TIRE CURER MAMMO ORDERABLES Final Result documented in this encounter Visit Diagnoses Diagnosis Other screening mammogram- Primary Other screening mammogram documented in this encounter Care Teams Denture Model Maker Relationship Specialty Start Date End Date Charles Delgadillo MD [address] [place] [address] PCP - General Family Practice 09/05/10 documented as of this encounter
--- OUTSIDE RECORDS SUMMARY | 2025-09-22 19:54 | XMS_ITS | Encounter Summary ---
Author Organization [facility] Address [address] [place] [address] Care Team Providers Care Mix Mill Tender Name Role Phone Norman Caldera MD Primary Care Provider [phone] Reason for Visit * Reason Onset Date Comments Need records faxed 04/25/2021 Encounter Details Date Type Department Care Team (Late st Contact Info) Description 04/25/2021 Telephone [facility] Contact Center Clinics [address] [facility] [address] [place] [address] Charles Delgadillo MD [address] [place] [address] Need records faxed Social History Tobacco Use Types Packs/Day Years Used Date Smoking Tobacco: Never Smokeless Tobacco: Never Alcohol Use Standard Drinks/Week Comments No 0 (1 standard drink = 0.6 oz pur e alcohol) Comments No Sex and Gender Information Value Date Recorded Sex Assigned at Not on file Legal Sex Female 2:09 AM BEHAVIORAL ANALYST Gender Identity Not on file Sexual [...] st Contact Info) Description 11/16/2025 11:40 AM BEHAVIORAL ANALYST Office Visit [address] [address] Norman Caldera MD [address] [address] 02/01/2026 9:30 AM CDT Office Visit [facility] Gastroenterology- [place] [address] [address] Deepthi Ray, REGISTERED PHYSICAL THERAPIST [address] [address] documented as of this encounter Visit Diagnoses Not on filedocumented in this encounter Care Teams Mix Mill Tender Relationship Specialty Start Date End Date Norman Caldera MD [address] [place] [address] PCP - General Family Practice 09/06/23 documented as of this encounter
--- OUTSIDE RECORDS SUMMARY | 2025-09-22 19:54 | XMS_ITS | Encounter Summary ---
Author Organization [facility] Address [address] [place] [address] Care Team Providers Care Special Education Teacher Name Role Phone Charles Delgadillo MD Primary Care Provider [phone] Encounter Details Date Type Department Care Team (Latest Contact Info) Description 08/15/2001 Outpatient [facility] Medicine [place] 104 [facility] 60 [place] [address] Thomas Anne MD [address] [address] ARTHROPATHY NOS-UNSPEC (Primary Dx); HYPERLIPIDEMIA NEC/NOS Social History Tobacco Use Types Packs/Day Years Used Date Smoking Tobacco: Never Assessed Comments Unknown Sex and Gender Information Value Date Recorded Sex Assigned at Not on file Legal Sex Female 5:59 AM WATCH COMMANDER Gender Identity Not on file Sexual Orientation Not on file documented as of this encounter Plan of Treatment Not on file documented as of this encounter Visit Diagnoses Diagnosis Arthropathy, unspecified, site unspecified- Primary Other and unspecified hyperlipidemia documented in this encounter Care Teams Special Education Teacher Relationship Specialty Start Date End Date Charles Delgadillo MD [address], [place] [address] PCP - General Family Practice 09/05/10 documented as of this encounter
--- OUTSIDE RECORDS SUMMARY | 2025-09-22 19:54 | XMS_ITS | Encounter Summary ---
Author Organization [facility] Address [address] [place] [address] Care Team Providers Care Youth Care Worker Name Role Phone Charles Delgadillo MD Primary Care Provider [phone] Encounter Details Date Type Department Care Team (Latest Contact Info) Description 07/25/2001 Outpatient [facility] Family Medicine [place] 104 [facility] 60 [place] [address] Thomas Anne MD [address] [phone] VACCINE FOR INFLUENZA (Primary Dx) Social History Tobacco Use Types Packs/Day Years Used Date Smoking Tobacco: Never Assessed Comments Unknown Sex and Gender Information Value Date Recorded Sex Assigned at Not on file Legal Sex Female 5:59 AM SNACK STEWARDESS Gender Identity Not on file Sexual Orientation Not on file documented as of this encounter Plan of Treatment Not on file documented as of this encounter Visit Diagnoses Diagnosis Need vaccination-viral disease- Primary Need for prophylactic vaccination and inoculation against other viral diseases documented in this encounter Care Teams Youth Care Worker Relationship Specialty Start Date End Date Charles Delgadillo MD [address] [place] [phone] PCP - General Family Practice 09/05/10 documented as of this encounter
--- OUTSIDE RECORDS SUMMARY | 2025-09-22 19:54 | XMS_ITS | Encounter Summary ---
Author Organization [facility] Address [address] [place] [address] Care Team Providers Care Shop And Alteration Tailor Name Role Phone Charles Delgadillo MD Primary Care Provider [phone] Encounter Details Date Type Department Care Team (Latest Contact Info) Description 12/17/2000 Outpatient [facility] Family Medicine [place] 104 [facility] 60 [place] [address] Thomas Anne MD [address] [address] Allergy, unspecified not elsewhere classified (Primary Dx); Other specified arthropathy, site unspecified Social History Tobacco Use Types Packs/Day Years Used Date Smoking Tobacco: Never Assessed Comments Unknown Sex and Gender Information Value Date Recorded Sex Assigned at Not on file Legal Sex Female 5:59 AM 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
--- OUTSIDE RECORDS SUMMARY | 2025-09-22 19:54 | XMS_ITS | Encounter Summary ---
Author Organization [facility] Address [address] [place] [address] Care Team Providers Care Antenna Rigger Name Role Phone Charles Delgadillo MD Primary Care Provider [phone] Encounter Details Date Type Department Care Team (Latest Contact Info) Description 05/28/2000 Outpatient [facility] Family Medicine [place] 104 [facility] 60 [place] [phone] Thomas Anne MD [address] [phone] Cervicalgia (Primary Dx); CVA Social History Tobacco Use Types Packs/Day Years Used Date Smoking Tobacco: Never Assessed Comments Unknown Sex and Gender Information Value Date Recorded Sex Assigned at Not on file Legal Sex Female 5:59 AM LINTER 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
--- OUTSIDE RECORDS SUMMARY | 2025-09-22 19:54 | XMS_ITS | Encounter Summary ---
Author Organization [facility] Address [address] [place] [address] Care Team Providers Care Day Worker Name Role Phone Charles Delgadillo MD Primary Care Provider [phone] Encounter Details Date Type Department Care Team (Latest Contact Info) Description 10/21/2003 Outpatient Historical [facility] Orthoped[facility]- [address] 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
--- OUTSIDE RECORDS SUMMARY | 2025-09-22 19:54 | XMS_ITS | Encounter Summary ---
Author Organization [facility] Address [address] [place] [address] Care Team Providers Care Electromechanical Inspector Name Role Phone Charles Delgadillo MD Primary Care Provider Encounter Details Date Type Department Care Team (Latest Contact Info) Description 10/27/2001 Outpatient [facility] Family Medicine [place] 104 [facility] 60 [place] [phone] Thomas Anne MD [address] [phone] URIN TRACT INFECTION NOS (Primary Dx) Social History Tobacco Use Types Packs/Day Years Used Date Smoking Tobacco: Never Assessed Comments Unknown Sex and Gender Information Value Date Recorded Sex Assigned at Not on file Legal Sex Female 5:59 AM QM NURSE Gender Identity Not on file Sexual Orientation Not on file documented as of this encounter Plan of Treatment Not on file documented as of this encounter Visit Diagnoses Diagnosis Urinary tract infection, site not specified- Primary documented in this encounter Care Teams Electromechanical Inspector Relationship Specialty Start Date End Date Charles Delgadillo MD [address] [place] [address] PCP - General Family Practice 09/05/10 documented as of this encounter
--- OUTSIDE RECORDS SUMMARY | 2025-09-22 19:54 | XMS_ITS | Encounter Summary ---
Author Organization [facility] Address [address] [place] [address] Care Team Providers Care Car Parker Name Role Phone Charles Delgadillo MD Primary Care Provider [phone] Encounter Details Date Type Department Care Team (Latest Contact Info) Description 01/13/2003 Outpatient [facility] Family Medicine [place] 104 [facility] [address] [place] [address] Thomas Anne MD [address] [phone] ENLARGEMENT LYMPH NODES (Primary Dx); HYPERLIPIDEMIA NEC/NOS Social History Tobacco Use Types Packs/Day Years Used Date Smoking Tobacco: Never Assessed Comments Unknown Sex and Gender Information Value Date Recorded Sex Assigned at Not on file Legal Sex Female 5:59 AM NEWSPAPER JOURNALIST Gender Identity Not on file Sexual Orientation Not on file documented as of this encounter Plan of Treatment Not on file documented as of this encounter Visit Diagnoses Diagnosis Enlargement of lymph nodes- Primary Other and unspecified hyperlipidemia documented in this encounter Care Teams Car Parker Relationship Specialty Start Date End Date Charles Delgadillo MD [address] [place] [address] PCP - General Family Practice 09/05/10 documented as of this encounter
--- OUTSIDE RECORDS SUMMARY | 2025-09-22 19:54 | XMS_ITS | Encounter Summary ---
Author Organization [facility] Address [address] [place] [address] Care Team Providers Care Proposal Manager Writer Name Role Phone Charles Delgadillo MD Primary Care Provider [phone] Encounter Details Date Type Department Care Team (Latest Contact Info) Description 10/06/2001 Outpatient Historical [facility] Family Medicine [place] 104 [facility] 60 [place] [phone] Thomas Anne MD [address] [phone] HYPERLIPIDEMIA NEC/NOS (Primary Dx) Social History Tobacco Use Types Packs/Day Years Used Date Smoking Tobacco: Never Assessed Comments Unknown Sex and Gender Information Value Date Recorded Sex Assigned at Not on file Legal Sex Female 5:59 AM SODA WORKER Gender Identity Not on file Sexual Orientation Not on file documented as of this encounter Plan of Treatment Not on file documented as of this encounter Visit Diagnoses Diagnosis Other and unspecified hyperlipidemia- Primary documented in this encounter Care Teams Proposal Manager Writer Relationship Specialty Start Date End Date Charles Delgadillo MD [address] [place] [address] PCP - General Family Practice 09/05/10 documented as of this encounter
--- OUTSIDE RECORDS SUMMARY | 2025-09-22 19:54 | XMS_ITS | Encounter Summary ---
Author Organization [facility] Address [address] [facility] Attn: Epic Prelude ADT ANGELICA DAVIS [address] Care Team Providers Care Brick Burner Head Name Role Phone Charles Delgadillo MD Primary Care Provider [phone] Encounter Details Date Type Department Care Team (Late st Contact Info) Description 10/06/2001 Outpatient Historical Thomas Anne MD [address] [phone] Social History Tobacco Use Types Packs/Day Years Used Date Smoking Tobacco: Never Assessed Comments Unknown Sex and Gender Information Value Date Recorded Sex Assigned at Not on file Legal Sex Female 5:59 AM HAT DESIGNER Gender Identity Not on file Sexual Orientation Not on file documented as of this encounter Plan of Treatment Not on file documented as of this encounter Visit Diagnoses Not on filedocumented in this encounter Care Teams Brick Burner Head Relationship Specialty Start Date End Date Charles Delgadillo MD [address] [place] [address] PCP - General Family Practice 09/05/10 documented as of this encounter
--- OUTSIDE RECORDS SUMMARY | 2025-09-22 19:54 | XMS_ITS | Encounter Summary ---
Author Organization [facility] Address [address] [place] [address] Care Team Providers Care Order To Delivery Supervisor Name Role Phone Charles Delgadillo MD Primary Care Provider [phone] Reason for Referral * Radiology Services (Routine) - Closed Specialty Diagnoses / Procedures Referred By Contac t Referred To Contact Diagnoses Lumbosacral spondylosis without myelopathy Procedures XR FLUORO NEEDLE GUIDANCE SPINE Ashu Caldwell MD Phone: tel: fax: Referral ID Status Reason Start Date Expiration Date Visits Re quested Visits Authorized [id number] Closed 10/28/2018 11/28/2019 1 1 CHEESE WORKER Encounter Details Date Type Department Care Team (Late st Contact Info) Description 10/28/2018 Ancillary Orders [facility] Pain Management Procedures [place] [address] [place] [address] [place] [address] [facility] [address] [place] [address] Lumbosacral spondylosis without myelopathy Social History Tobacco Use Types Packs/Day Years Used Date Smoking Tobacco: Never Smokeless Tobacco: Never Alcohol Use Standard Drinks/Week Comments No 0 (1 standard drink = 0.6 oz pur e alcohol) Comments No Sex and Gender Information Value Date Recorded Sex Assigned at Not on file Legal Sex Female 5:59 AM RAW CHEESE WORKER Gender Identity Not on file Sexual Orientation Not on file 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 Exam was auto-finalized. 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
--- OUTSIDE RECORDS SUMMARY | 2025-09-22 19:54 | XMS_ITS | Encounter Summary ---
Author Organization [employer] [facility] Address [address] [place] [address] Care Team Providers Care Info Analyst Name Role Phone Charles Delgadillo MD Primary Care Provider [phone] Encounter Details Date Type Department Care Team (Latest Contact Info) Description 08/18/2018 Ancillary Orders [facility] [place] [address] [address] Charles Delgadillo MD [address] [place] [address] Visit for screening mammogram Social History Tobacco Use Types Packs/Day Years Used Date Smoking Tobacco: Never Smokeless Tobacco: Never Alcohol Use Standard Drinks/Week Comments No 0 (1 standard drink = 0.6 oz pur e alcohol) Comments No Sex and Gender Information Value Date Recorded Sex Assigned at Not on file Legal Sex Female 5:59 AM SEAM PRESSER Gender Identity Not on file Sexual Orientation Not on file 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
--- OUTSIDE RECORDS SUMMARY | 2025-09-22 19:54 | XMS_ITS | Encounter Summary ---
Author Organization [facility] Address [address] [place] [address] Care Team Providers Care Cook Soup Name Role Phone Charles Delgadillo MD Primary Care Provider [phone] Encounter Details Date Type Department Care Team (Latest Contact Info) Description 06/03/2001 Outpatient [facility] Medicine [place] 104 [facility] 60 [place] [address] Thomas Anne MD [address] [address] Dyshidrosis (Primary Dx); Headache(784.0) Social History Tobacco Use Types Packs/Day Years Used Date Smoking Tobacco: Never Assessed Comments Unknown Sex and Gender Information Value Date Recorded Sex Assigned at Not on file Legal Sex Female 5:59 AM 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
--- OUTSIDE RECORDS SUMMARY | 2025-09-22 19:54 | XMS_ITS | Encounter Summary ---
Author Organization [facility] Address [address] [place] [address] Care Team Providers Care Awning Hanger Supervisor Name Role Phone Charles Delgadillo MD Primary Care Provider [phone] Encounter Details Date Type Department Care Team (Latest Contact Info) Description 03/11/2001 Outpatient [facility] Family Medicine [place] [facility] [address] [place] [address] Thomas Anne MD [address] [phone] Sprain of ankle, unspecified site (Primary Dx) Social History Tobacco Use Types Packs/Day Years Used Date Smoking Tobacco: Never Assessed Comments Unknown Sex and Gender Information Value Date Recorded Sex Assigned at Not on file Legal Sex Female 5:59 AM INSPECTION SUPERVISOR Gender Identity Not on file Sexual Orientation Not on file documented as of this encounter Plan of Treatment Not on file documented as of this encounter Visit Diagnoses Diagnosis Sprain of ankle, unspecified site- Primary documented in this encounter Care Teams Awning Hanger Supervisor Relationship Specialty Start Date End Date Charles Delgadillo MD [address] [place] [address] PCP - General Family Practice 09/05/10 documented as of this encounter
--- OUTSIDE RECORDS SUMMARY | 2025-09-22 19:54 | XMS_ITS | Encounter Summary ---
Author Organization [facility] Address [address] [facility] Attn: Epic Prelude ADT ANGELICA DAVIS [address] Care Team Providers Care Diversified Crops Farmer Name Role Phone Charles Delgadillo MD Primary Care Provider [phone] Encounter Details Date Type Department Care Team (Late st Contact Info) Description 08/29/2001 Outpatient Historical Thomas Anne MD [address] [phone] Social History Tobacco Use Types Packs/Day Years Used Date Smoking Tobacco: Never Assessed Comments Unknown Sex and Gender Information Value Date Recorded Sex Assigned at Not on file Legal Sex Female 5:59 AM LONG TERM CARE PHLEBOTOMIST Gender Identity Not on file Sexual Orientation Not on file documented as of this encounter Plan of Treatment Not on file documented as of this encounter Visit Diagnoses Not on filedocumented in this encounter Care Teams Diversified Crops Farmer Relationship Specialty Start Date End Date Charles Delgadillo MD [address] [place] [address] PCP - General Family Practice 09/05/10 documented as of this encounter
--- OUTSIDE RECORDS SUMMARY | 2025-09-22 19:54 | XMS_ITS | Encounter Summary ---
Author Organization [facility] Address [address] [place] [address] Care Team Providers Care Scanning Clerk Name Role Phone Charles Delgadillo MD Primary Care Provider [phone] Reason for Referral * Outpatient Services (Routine) - Closed Specialty Diagnoses / Procedures Referred By Tisha troncoso Referred To Contact Diagnoses Screening mammogram Procedures MAMMO SCREENING BILAT MOBILE Shanika Zavala FNP [address] [place] [address] Phone: tel: fax: Referral ID Status Reason Start Date Expiration Date Visits Re quested Visits Authorized [id number] Closed 04/04/2011 04/03/2012 1 1 Encounter Details Date Type Department Care Team (Late st Contact Info) Description 04/04/2011 Ancillary Orders [facility] [address] 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 Shanika Zavala COLD FOOD PACKER MAMMO ORDERABLES Final Result documented in this encounter Visit Diagnoses Diagnosis Screening mammogram Other screening mammogram Screening mammogram Other screening mammogram documented in this encounter Care Teams Scanning Clerk Relationship Specialty Start Date End Date Charles Delgadillo MD [address] [place] [address] PCP - General Family Practice 09/05/10 documented as of this encounter
--- OUTSIDE RECORDS SUMMARY | 2025-09-22 19:54 | XMS_ITS | Encounter Summary ---
Author Organization [facility] Address [address] [place] [address] Care Team Providers Care Education Professional Name Role Phone Charles Delgadillo MD Primary Care Provider [phone] Reason for Referral * Outpatient Services (Routine) - Closed Specialty Diagnoses / Procedures Referred By Contac t Referred To Contact Radiology Diagnoses Other screening mammogram Procedures MAMMO DIGITIZED STUDY Shanika Zavala FNP [address] [place] [address] Phone: tel: fax: [facility] [address] [address] Phone: tel: fax: Referral ID Status Reason Start Date Expiration Date Visits Re quested Visits Authorized [id number] Closed 04/07/2012 04/07/2013 1 1 * Outpatient Services (Routine) - Closed Specialty Diagnoses / Procedures Referred By Contchrissy t Referred To Contact Radiology Diagnoses Other screening mammogram Procedures MAMMO DIGITIZED STUDY Shanika Zavala FNP [address] [place] [address] Phone: tel: fax: [facility] [address] [place] [address] Phone: tel: fax: Referral ID Status Reason Start Date Expiration Date Visits Re quested Visits Authorized [id number] Closed 04/07/2012 04/07/2013 1 1 Encounter Details Date Type Department Care Team (Latest Contact Info) Description 04/07/[address] Ancillary [address] 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 Exam was auto-finalized. us Shanika Zavala PILE DRIVER DIAGNOSTIC IMAGING ORDERABLES Final Result documented in this encounter Visit Diagnoses Diagnosis Other screening mammogram Other screening mammogram Other screening mammogram documented in this encounter Care Teams Education Professional Relationship Specialty Start Date End Date Charles Delgadillo MD [address] [place] [phone] PCP - General Family Practice 09/05/10 documented as of this encounter
--- OUTSIDE RECORDS SUMMARY | 2025-09-22 19:54 | XMS_ITS | Encounter Summary ---
Author Organization [facility] Address [address] [place] [address] Care Team Providers Care Business Development Director Name Role Phone Charles Delgadillo MD Primary Care Provider [phone] Encounter Details Date Type Department Care Team (Late st Contact Info) Description 06/11/2001 Outpatient Historical [facility] OR[facility]ERY Reg Lyon MD [address] [place], [place] [phone] Loss of teeth due to trauma, extraction, or periodontal disease (Primary Dx) Social History Tobacco Use Types Packs/Day Years Used Date Smoking Tobacco: Never Assessed Comments Unknown Sex and Gender Information Value Date Recorded Sex Assigned at Not on file Legal Sex Female 5:59 AM BUCKLE SORTER Gender Identity Not on file Sexual Orientation Not on file documented as of this encounter Plan of Treatment Not on file documented as of this encounter Visit Diagnoses Diagnosis Loss of teeth due to trauma, extraction, or periodontal disease- Primary documented in this encounter Care Teams Business Development Director Relationship Specialty Start Date End Date Charles Delgadillo MD [address] [place] [address] PCP - General Family Practice 09/05/10 documented as of this encounter
--- OUTSIDE RECORDS SUMMARY | 2025-09-22 19:54 | XMS_ITS | Encounter Summary ---
Author Organization [facility] Address [address] [facility] Attn: Epic Prelude ADT ANGELICA DAVIS [address] Care Team Providers Care Law Secretary Name Role Phone Charles Delgadillo MD Primary Care Provider [phone] Encounter Details Date Type Department Care Team (Late st Contact Info) Description 08/16/2001 Outpatient Historical Thomas Anne MD [address] [phone] Social History Tobacco Use Types Packs/Day Years Used Date Smoking Tobacco: Never Assessed Comments Unknown Sex and Gender Information Value Date Recorded Sex Assigned at Not on file Legal Sex Female 5:[address] ENGINEER Gender Identity Not on file Sexual Orientation Not on file documented as of this encounter Plan of Treatment Not on file documented as of this encounter Visit Diagnoses Not on filedocumented in this encounter Care Teams Law Secretary Relationship Specialty Start Date End Date Charles Delgadillo MD [address] [place] [address] PCP - General Family Practice 09/05/10 documented as of this encounter
--- OUTSIDE RECORDS SUMMARY | 2025-09-22 19:54 | XMS_ITS | Encounter Summary ---
Author Organization [facility] Address [address] [place] [address] Care Team Providers Care Survey Questionnaire Designer Name Role Phone Charles Delgadillo MD Primary Care Provider [phone] Encounter Details Date Type Department Care Team (Latest Contact Info) Description 07/13/2002 Outpatient [facility] Family Medicine [place] 104 [facility] 60 [place] [phone] Thomas Anne MD [address] [phone] VACCINE FOR INFLUENZA (Primary Dx) Social History Tobacco Use Types Packs/Day Years Used Date Smoking Tobacco: Never Assessed Comments Unknown Sex and Gender Information Value Date Recorded Sex Assigned at Not on file Legal Sex Female 5:59 AM 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
--- OUTSIDE RECORDS SUMMARY | 2025-09-22 19:54 | XMS_ITS | Encounter Summary ---
Author Organization [facility] Address [address] [place] [address] Care Team Providers Care Corporate Communications Manager Name Role Phone Charles Delgadillo MD Primary Care Provider [phone] Encounter Details Date Type Department Care Team (Late st Contact Info) Description 10/27/2003 Outpatient Historical [facility] Imaging Services [place] [address] [address] [facility] [place] [address] Gamaliel Gracia MD [address] [place] [phone] Social History Tobacco Use Types Packs/Day Years Used Date Smoking Tobacco: Never Assessed Comments Unknown Sex and Gender Information Value Date Recorded Sex Assigned at Not on file Legal Sex Female 5:59 AM COOK HELPER MEAT Gender Identity Not on file Sexual Orientation Not on file documented as of this encounter Plan of Treatment Not on file documented as of this encounter Visit Diagnoses Not on filedocumented in this encounter Care Teams Corporate Communications Manager Relationship Specialty Start Date End Date Charles Delgadillo MD [address] [place] [address] PCP - General Family Practice 09/05/10 documented as of this encounter
--- OUTSIDE RECORDS SUMMARY | 2025-09-22 19:54 | XMS_ITS | Encounter Summary ---
Author Organization [facility] [employer] [facility] Address [address] [place] [address] Care Team Providers Care English Composition Instructor Name Role Phone Charles Delgadillo MD Primary Care Provider [phone] Reason for Referral * Outpatient Services (Routine) - Closed Specialty Diagnoses / Procedures Referred By Tisha troncoso Referred To Contact Oncology Diagnoses Other screening mammogram Procedures MAMMO DIGITAL SCREEN BILAT MOBILE Shanika Zavala FNP [address] [place] [phone] Phone: tel: fax: [facility] [place] [id number] [address] Phone: tel: Referral ID Status Reason Start Date Expiration Date Visits Re quested Visits Authorized [id number] Closed 03/20/2012 03/20/2013 1 1 Encounter Details Date Type Department Care Team (Latest Contact Info) Description 03/20/2012 Ancillary Orders [facility] [place] [address] [address] Shanika Zavala FNP [address] [place] [phone] Other screening mammogram Social History Tobacco Use Types Packs/Day Years Used Date Smoking Tobacco: Never Smokeless Tobacco: Never Alcohol Use Standard Drinks/Week Comments No 0 (1 standard drink = 0.6 oz pur e alcohol) Comments No Sex and Gender Information Value Date Recorded Sex Assigned at Not on file Legal Sex Female 5:59 AM DRY MAN Gender Identity Not on file Sexual Orientation Not on file 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 us Shanika Zavala TRACK REPAIR LABORER MAMMO ORDERABLES Final Result documented in this encounter Visit Diagnoses Diagnosis Other screening mammogram Other screening mammogram documented in this encounter Care Teams English Composition Instructor Relationship Specialty Start Date End Date Charles Delgadillo MD [address] [place] [address] PCP - General Family Practice 09/05/10 documented as of this encounter
--- OUTSIDE RECORDS SUMMARY | 2025-09-22 19:54 | XMS_ITS | Encounter Summary ---
Author Organization [facility] Address [address] [place] [address] Care Team Providers Care City Council Member Name Role Phone Charles Delgadillo MD Primary Care Provider [phone] Encounter Details Date Type Department Care Team (Latest Contact Info) Description 11/05/2003 Outpatient Historical [facility] Orthoped[facility] [place] [address] Gamaliel Gracia MD [address] [place] [phone] JOINT PAIN-SHLDER (Primary Dx); LOC OSTEOARTH NOS-SHLDER Social History Tobacco Use Types Packs/Day Years Used Date Smoking Tobacco: Never Assessed Comments Unknown Sex and Gender Information Value Date Recorded Sex Assigned at Not on file Legal Sex Female 5:59 AM WEAVER HAND Gender Identity Not on file Sexual Orientation Not on file documented as of this encounter Plan of Treatment Not on file documented as of this encounter Visit Diagnoses Diagnosis Pain in joint, shoulder region- Primary Localized osteoarthrosis not specified whether primary or secondary, shoulder region documented in this encounter Care Teams City Council Member Relationship Specialty Start Date End Date Charles Delgadillo MD [address] [place] [address] PCP - General Family Practice 09/05/10 documented as of this encounter
--- OUTSIDE RECORDS SUMMARY | 2025-09-22 19:54 | XMS_ITS | Encounter Summary ---
Author Organization [facility] [place] [facility] Address [address] [facility] Attn: Epic Prelude ADT ANGELICA DAVIS [address] Care Team Providers Care Field Account Manager Name Role Phone Charles Delgadillo MD Primary Care Provider [phone] Encounter Details Date Type Department Care Team (Late st Contact Info) Description 05/19/2002 Outpatient Historical Thomas Anne MD [address] [phone] Social History Tobacco Use Types Packs/Day Years Used Date Smoking Tobacco: Never Assessed Comments Unknown Sex and Gender Information Value Date Recorded Sex Assigned at Not on file Legal Sex Female 5:59 AM BULLDOZER OPERATOR Gender Identity Not on file Sexual Orientation Not on file documented as of this encounter Plan of Treatment Not on file documented as of this encounter Visit Diagnoses Not on filedocumented in this encounter Care Teams Field Account Manager Relationship Specialty Start Date End Date Charles Delgadillo MD [address] [place] [address] PCP - General Family Practice 09/05/10 documented as of this encounter
--- OUTSIDE RECORDS SUMMARY | 2025-09-22 19:54 | XMS_ITS | Encounter Summary ---
Author Organization [facility] Address [address] [place] [address] Care Team Providers Care Care Aide Name Role Phone Charles Delgadillo MD Primary Care Provider [phone] Encounter Details Date Type Department Care Team (Latest Contact Info) Description 05/19/2002 Outpatient [facility] Family Medicine [place] [address] [facility] 60 [place] [address] Thomas Anne MD [address] [address] Gynecologic examination (Primary Dx); SCREENING MAL NEOP-BREAST,UNSPEC Social History Tobacco Use Types Packs/Day Years Used Date Smoking Tobacco: Never Assessed Comments Unknown Sex and Gender Information Value Date Recorded Sex Assigned at Not on file Legal Sex Female 5:59 AM DESTINATION SPECIALIST Gender Identity Not on file Sexual Orientation Not on file documented as of this encounter Plan of Treatment Not on file documented as of this encounter Visit Diagnoses Diagnosis Gynecologic examination- Primary Gynecological examination Breast screening, unspecified documented in this encounter Care Teams Care Aide Relationship Specialty Start Date End Date Charles Delgadillo MD [address] [place] [phone] PCP - General Family Practice 09/05/10 documented as of this encounter
--- OUTSIDE RECORDS SUMMARY | 2025-09-22 19:54 | XMS_ITS | Encounter Summary ---
Author Organization [facility] Address [address] [place] [address] Care Team Providers Care Dog Food Dough Mixer Name Role Phone Charles Delgadillo MD Primary Care Provider [phone] Encounter Details Date Type Department Care Team (Latest Contact Info) Description 02/23/2002 Outpatient [facility] Family Medicine [place] [facility] [address] [place] [address] Thomas Anne MD [address] [address] UNSPEC CONSTIPATION (Primary Dx); General symptoms NEC Social History Tobacco Use Types Packs/Day Years Used Date Smoking Tobacco: Never Assessed Comments Unknown Sex and Gender Information Value Date Recorded Sex Assigned at Not on file Legal Sex Female 5:59 AM INFORMATION SYSTEMS COORDINATOR Gender Identity Not on file Sexual Orientation Not on file documented as of this encounter Plan of Treatment Not on file documented as of this encounter Visit Diagnoses Diagnosis Unspecified constipation- Primary General symptoms NEC Other general symptoms documented in this encounter Care Teams Dog Food Dough Mixer Relationship Specialty Start Date End Date Charles Delgadillo MD [address] [place] [address] PCP - General Family Practice 09/05/10 documented as of this encounter
--- OUTSIDE RECORDS SUMMARY | 2025-09-22 19:54 | XMS_ITS | Encounter Summary ---
Author Organization [facility] Address [address] [place] [address] Care Team Providers Care Electronic Equipment Repairer Name Role Phone Charles Delgadillo MD Primary Care Provider [phone] Encounter Details Date Type Department Care Team (Late st Contact Info) Description 07/17/2002 Outpatient [facility] Family Medicine [place] 104 [facility] 60 [place] [phone] Thomas Anne MD [address] [phone] CVA (Primary Dx) Social History Tobacco Use Types Packs/Day Years Used Date Smoking Tobacco: Never Assessed Comments Unknown Sex and Gender Information Value Date Recorded Sex Assigned at Not on file Legal Sex Female 5:59 AM REGULATORY ATTORNEY Gender Identity Not on file Sexual Orientation Not on file documented as of this encounter Plan of Treatment Not on file documented as of this encounter Visit Diagnoses Diagnosis CVA- Primary Unspecified cerebral artery occlusion with cerebral infarction documented in this encounter Care Teams Electronic Equipment Repairer Relationship Specialty Start Date End Date Charles Delgadillo MD [address] [place] [address] PCP - General Family Practice 09/05/10 documented as of this encounter
--- OUTSIDE RECORDS SUMMARY | 2025-09-22 19:54 | XMS_ITS | Encounter Summary ---
Author Organization [facility] Address [address] [place] [address] Care Team Providers Care Computer Bookkeeper Name Role Phone Cahrles Delgdaillo MD Primary Care Provider [phone] Encounter Details Date Type Department Care Team (Latest Contact Info) Description 03/16/2002 Outpatient Historical [facility] Family Medicine [address] [phone] Samuel Chen MD ABDOMINAL PAIN UNSPEC SITE (Primary Dx) Social History Tobacco Use Types Packs/Day Years Used Date Smoking Tobacco: Never Assessed Comments Unknown Sex and Gender Information Value Date Recorded Sex Assigned at Not on file Legal Sex Female 5:59 AM LEAN SENSEI Gender Identity Not on file Sexual Orientation Not on file documented as of this encounter Plan of Treatment Not on file documented as of this encounter Visit Diagnoses Diagnosis Abdominal pain, unspecified site- Primary documented in this encounter Care Teams Computer Bookkeeper Relationship Specialty Start Date End Date Charles Delgadillo MD [address] [place] [address] PCP - General Family Practice 09/05/10 documented as of this encounter
--- OUTSIDE RECORDS SUMMARY | 2025-09-22 19:55 | XMS_ITS | Encounter Summary ---
Author Organization [facility] Address [address] [place] [address] Care Team Providers Care Surface Boss Name Role Phone Charles Delgadillo MD Primary Care Provider [phone] Encounter Details Date Type Department Care Team (Latest Contact Info) Description 03/29/2004 Outpatient [facility] [place] [address] [place] [address] Miller Bustos DPM NO ADDRESS ON FILE Plantar fibromatosis (Primary Dx); TARSAL TUNNEL SYNDROME; TENOSYNOVITIS FOOT/ANKLE; SPRAIN OF ANKLE NOS Social History Tobacco Use Types Packs/Day Years Used Date Smoking Tobacco: Never Assessed Comments Unknown Sex and Gender Information Value Date Recorded Sex Assigned at Not on file Legal Sex Female 5:59 AM PAINTER AIRCRAFT Gender Identity Not on file Sexual Orientation Not on file documented as of this encounter Plan of Treatment Not on file documented as of this encounter Visit Diagnoses Diagnosis Plantar fibromatosis- Primary Plantar fascial fibromatosis Tarsal tunnel syndrome Tenosynovitis of foot and ankle Sprain of ankle, unspecified site documented in this encounter Care Teams Surface Boss Relationship Specialty Start Date End Date Charles Delgadillo MD [address] [place] [address] PCP - General Family Practice 09/05/10 documented as of this encounter
--- OUTSIDE RECORDS SUMMARY | 2025-09-22 19:55 | XMS_ITS | Encounter Summary ---
Author Organization [facility] Address [address] [place] [address] Care Team Providers Care Sql Developer Name Role Phone Charles Delgadillo MD Primary Care Provider [phone] Encounter Details Date Type Department Care Team (Latest Contact Info) Description 05/08/2005 Outpatient [facility] Family Medicine [place] 104 [facility] 60 [place] [address] Thomas Anne MD [address] [address] HYPERLIPIDEMIA NEC/NOS (Primary Dx); Pain in limb Social History Tobacco Use Types Packs/Day Years Used Date Smoking Tobacco: Never Assessed Comments Unknown Sex and Gender Information Value Date Recorded Sex Assigned at Not on file Legal Sex Female 5:59 AM SHERIFF'S OFFICER Gender Identity Not on file Sexual Orientation Not on file documented as of this encounter Plan of Treatment Not on file documented as of this encounter Visit Diagnoses Diagnosis Other and unspecified hyperlipidemia- Primary Pain in limb Pain in soft tissues of limb documented in this encounter Care Teams Sql Developer Relationship Specialty Start Date End Date Charles Delgadillo MD [address] [place] [phone] PCP - General Family Practice 09/05/10 documented as of this encounter
--- OUTSIDE RECORDS SUMMARY | 2025-09-22 19:55 | XMS_ITS | Encounter Summary ---
Author Organization [employer] [facility] Address [address] [place] [address] Care Team Providers Care Fitness And Wellness Director Name Role Phone Charles Delgadillo MD Primary Care Provider [phone] Encounter Details Date Type Department Care Team (Latest Contact Info) Description 06/12/2006 Outpatient Historical [facility] Pain Management Procedures [address] [place] [address] Melvin Caro Disturbance of Skin Sensation (Primary Dx) Social History Tobacco Use Types Packs/Day Years Used Date Smoking Tobacco: Never Assessed Comments Unknown Sex and Gender Information Value Date Recorded Sex Assigned at Not on file Legal Sex Female 5:59 AM RUN LEAD Gender Identity Not on file Sexual Orientation Not on file documented as of this encounter Plan of Treatment Not on file documented as of this encounter Visit Diagnoses Diagnosis Disturbance of skin sensation- Primary documented in this encounter Care Teams Fitness And Wellness Director Relationship Specialty Start Date End Date Charles Delgadillo MD [address] [place] [address] [place] [address] PCP - General Family Practice 09/05/10 documented as of this encounter
--- OUTSIDE RECORDS SUMMARY | 2025-09-22 19:55 | XMS_ITS | Encounter Summary ---
Author Organization [employer] [facility] Address [address] [place] [address] Care Team Providers Care Carbon Capture Power Plant Engineer Name Role Phone Charles Delgadillo MD Primary Care Provider [phone] Encounter Details Date Type Department Care Team (Late st Contact Info) Description 10/26/2005 Outpatient Historical [facility] Thomas Anne MD [address] [phone] Social History Tobacco Use Types Packs/Day Years Used Date Smoking Tobacco: Never Assessed Comments Unknown Sex and Gender Information Value Date Recorded Sex Assigned at Not on file Legal Sex Female 5:59 AM HEATING AND 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
--- OUTSIDE RECORDS SUMMARY | 2025-09-22 19:55 | XMS_ITS | Encounter Summary ---
Author Organization [employer] [facility] Address [address] [place] [address] Care Team Providers Care Bucket Chucker Name Role Phone Charles Delgadillo MD Primary Care Provider [phone] Encounter Details Date Type Department Care Team (Latest Contact Info) Description 06/05/2006 Outpatient Historical [facility] Pain Management Procedures [address] [place] [address] Melvin Caro Thoracic or Lumbosacral Neuritis or Radiculitis, Unspecified (Primary Dx) Social History Tobacco Use Types Packs/Day Years Used Date Smoking Tobacco: Never Assessed Comments Unknown Sex and Gender Information Value Date Recorded Sex Assigned at Not on file Legal Sex Female 5:59 AM AUTOMOTIVE FUEL SYSTEMS CONVERTER Gender Identity Not on file Sexual Orientation Not on file documented as of this encounter Plan of Treatment Not on file documented as of this encounter Visit Diagnoses Diagnosis Thoracic or lumbosacral neuritis or radiculitis, unspecified- Primary documented in this encounter Care Teams Bucket Chucker Relationship Specialty Start Date End Date Charles Delgadillo MD [address] [place] [address] PCP - General Family Practice 09/05/10 documented as of this encounter
--- OUTSIDE RECORDS SUMMARY | 2025-09-22 19:55 | XMS_ITS | Encounter Summary ---
Author Organization [facility] Address [address] [place] [address] Care Team Providers Care High Speed Warper Tender Name Role Phone Charles Delgadillo MD Primary Care Provider [phone] Encounter Details Date Type Department Care Team (Latest Contact Info) Description 05/14/2003 Outpatient [facility] Medicine [place] 104 [facility] 60 [place] [address] Thomas Anne MD [address] [address] ACUTE SINUSITIS NOS (Primary Dx); MYALGIA AND MYOSITIS NOS Social History Tobacco Use Types Packs/Day Years Used Date Smoking Tobacco: Never Assessed Comments Unknown Sex and Gender Information Value Date Recorded Sex Assigned at Not on file Legal Sex Female 5:59 AM COUNTER CUTTER Gender Identity Not on file Sexual Orientation Not on file documented as of this encounter Plan of Treatment Not on file documented as of this encounter Visit Diagnoses Diagnosis Acute sinusitis, unspecified- Primary Myalgia and myositis, unspecified Mylagia and myositis, unspecified documented in this encounter Care Teams High Speed Warper Tender Relationship Specialty Start Date End Date Charles Delgadillo MD [address], [place] [address] PCP - General Family Practice 09/05/10 documented as of this encounter
--- OUTSIDE RECORDS SUMMARY | 2025-09-22 19:55 | XMS_ITS | Encounter Summary ---
Author Organization [facility] Address [address] [place] [address] Care Team Providers Care Physician/Allergy/Immunology Name Role Phone Charles Delgadillo MD Primary Care Provider [phone] Encounter Details Date Type Department Care Team (Late st Contact Info) Description 12/12/2005 Outpatient Historical [facility] Imaging Services [place] [address] [place] [address] Social History Tobacco Use Types Packs/Day Years Used Date Smoking Tobacco: Never Assessed Comments Unknown Sex and Gender Information Value Date Recorded Sex Assigned at Not on file Legal Sex Female 5:59 AM ASSISTANT COMMUNITY DIRECTOR Gender Identity Not on file Sexual Orientation Not on file documented as of this encounter Plan of Treatment Not on file documented as of this encounter Visit Diagnoses Not on filedocumented in this encounter Care Teams Physician/Allergy/Immunology Relationship Specialty Start Date End Date Charles Delgadillo MD [address] [place] [address] PCP - General Family Practice 09/05/10 documented as of this encounter
--- OUTSIDE RECORDS SUMMARY | 2025-09-22 19:55 | XMS_ITS | Encounter Summary ---
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) Social History Tobacco Use Types Packs/Day Years Used Date Smoking Tobacco: Never Assessed Comments Unknown Sex and Gender Information Value Date Recorded Sex Assigned at Not on file Legal Sex Female 5:59 AM LAUNDRY EQUIPMENT OPERATOR Gender Identity Not on file Sexual Orientation Not on file documented as of this encounter Plan of Treatment Not on file documented as of this encounter Visit Diagnoses Diagnosis Lumbosacral spondylosis without myelopathy- Primary documented in this encounter Care Teams In Flight Refueling System Repairer Relationship Specialty Start Date End Date Charles Delgadillo MD [address] [place] [address] PCP - General Family Practice 09/05/10 documented as of this encounter
--- OUTSIDE RECORDS SUMMARY | 2025-09-22 19:55 | XMS_ITS | Encounter Summary ---
Author Organization [facility] Address [address] [place] [address] Care Team Providers Care Storage Center Manager Name Role Phone Charles Delgadillo MD Primary Care Provider Encounter Details Date Type Department Care Team (Latest Contact Info) Description 05/13/2006 Outpatient Historical [facility] Medicine [place] [facility] 60 [place] [phone] Lamar Pineda NP NO ADDRESS ON FILE Other and Unspecified Hyperlipidemia (Primary Dx); Unspecified Disease of Spinal Cord (CMS/HCC) Social History Tobacco Use Types Packs/Day Years Used Date Smoking Tobacco: Never Assessed Comments Unknown Sex and Gender Information Value Date Recorded Sex Assigned at Not on file Legal Sex Female 5:59 AM GRANITE POLISHER 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
--- OUTSIDE RECORDS SUMMARY | 2025-09-22 19:55 | XMS_ITS | Encounter Summary ---
Author Organization [facility] Address [address] [place] [address] Care Team Providers Care Wood Barrel Reconditioner Name Role Phone Charles Delgadillo MD Primary Care Provider [phone] Encounter Details Date Type Department Care Team (Latest Contact Info) Description 07/17/2004 Outpatient Historical [facility] [place] [address] [place] [address] Miller Bustos DPM NO ADDRESS ON FILE TARSAL TUNNEL SYNDROME (Primary Dx) Social History Tobacco Use Types Packs/Day Years Used Date Smoking Tobacco: Never Assessed Comments Unknown Sex and Gender Information Value Date Recorded Sex Assigned at Not on file Legal Sex Female 5:59 AM INFORMATION TECHNOLOGY CONSULTANT Gender Identity Not on file Sexual Orientation Not on file documented as of this encounter Plan of Treatment Not on file documented as of this encounter Visit Diagnoses Diagnosis Tarsal tunnel syndrome- Primary documented in this encounter Care Teams Wood Barrel Reconditioner Relationship Specialty Start Date End Date Chrales Delgadillo MD [address], [place] [address] PCP - General Family Practice 09/05/10 documented as of this encounter
--- OUTSIDE RECORDS SUMMARY | 2025-09-22 19:55 | XMS_ITS | Clinical Summary ---
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 without significant change from prior study. Narrative 08/07/2025 10:08 AM STOCK CONTROL SUPERVISOR Exam: XR CHEST PA OR AP 1 [...] stable without significant change from prior study. Jose Pittman DO DIAGNOSTIC IMAGING ORDERABLES Fi nal Result * EXTRA TUBE (BLUE) (08/07/2025 9:50 AM STOCK CONTROL SUPERVISOR) Blood Venipuncture / Unknown 08/07/2025 9:50 AM STOCK CONTROL SUPERVISOR 08/07/2025 10:03 AM STOCK CONTROL SUPERVISOR Next Step Livingt DO HEMATOLOGY ORDERABLES Final Resu lt [id number] [address] [place] [address] * (ABNORMAL) TROPONIN BASELINE, 5TH GEN (08/07/2025 9:50 AM STOCK CONTROL SUPERVISOR) Only the most recent of2 resultswithin the time period is included. TROPONIN T, BASELINE 5TH GEN 29(H) <=10 ng/L 08/07/2025 10:26 AM STOCK CONTROL SUPERVISOR [facility] Blood Venipuncture / Unknown 08/07/2025 9:50 AM STOCK CONTROL SUPERVISOR 08/07/2025 10:03 AM STOCK CONTROL SUPERVISOR Narrative [facility] - 08/07/2025 10:26 AM STOCK CONTROL SUPERVISOR Troponin elevated. us Jose Pittman DO CHEMISTRY ORDERABLES Final Resul t [facility] [place] # [id number] [address] [place] [address] * (ABNORMAL) MANUAL DIFFERENTIAL (08/07/2025 9:50 AM STOCK CONTROL SUPERVISOR) Only the most recent of2 resultswithin the time period is included. SEGMENTED NEUTROPHILS 59 45 - 70 % 08/07/2025 10:23 AM [facility] LYMPHOCYTES RELATIVE 26 20 - 45 % 08/07/2025 10:23 AM [facility] MONOCYTES RELATIVE 12(H) 2 - 8 % 08/07/2025 10:23 AM [facility] EOSINOPHILS RELATIVE 3 0 - 5 % 08/07/2025 10:23 AM [facility] NEUTROPHILS ABSOLUTE COUNT 7.14(H) 1.78 - 5.38 K/uL 08/07/2025 10:23 AM [facility] LYMPHOCYTES ABSOLUTE 3.15 1.20 - 4.00 K/uL 08/07/2025 10:23 AM [facility] MONOCYTES ABSOLUTE 1.45(H) 0.30 - 0.82 K/uL 08/07/2025 10:23 AM [facility] EOSINOPHILS ABSOLUTE 0.36 0.04 - 0.54 K/uL 08/07/2025 10:23 AM [facility] TOTAL CELLS COUNTED IN DIFF 100 08/07/2025 10:23 AM [facility] PLATELET EST. Adequate 08/07/2025 10:23 AM [facility] ANISOCYTOSIS 2+ /hpf 08/07/2025 10:23 AM [facility] MICROCYTES 2+ /hpf 08/07/2025 10:23 AM [facility] HYPOCHROMIA 1+ /hpf 08/07/2025 10:23 AM [facility] TARGET CELLS 1+ /hpf 08/07/2025 10:23 AM [facility] CLUMPED PLATELETS Present 025 10:23 AM STOCK CONTROL SUPERVISOR [facility] Comment:Platelet clumping ob served on slide. Platelets appear adequate and normal. Blood Venipuncture / Unknown 08/07/2025 9:50 AM STOCK CONTROL SUPERVISOR 08/07/2025 10:03 AM STOCK CONTROL SUPERVISOR us Jose Pittman DO HEMATOLOGY ORDERABLES COM Final Result Performing Organization Address City/[facility] Co de Phone Number [facility] CLIA # [id number] [address] [place] [address] * BRAIN NATRIURETIC PEPTIDE, BNP OR PROBNP (08/07/2025 9:50 AM STOCK CONTROL SUPERVISOR) PROBNP, N TERMINAL 120 0 - 450 pg/mL 08/07/2025 10:26 AM STOCK CONTROL SUPERVISOR [facility] Comment: INTERPRETIVE COMMENT based on diagnosis: [...] Blood Venipuncture / Unknown 08/07/2025 9:50 AM STOCK CONTROL SUPERVISOR 08/07/2025 10:03 AM STOCK CONTROL SUPERVISOR us Jose Pittman DO CHEMISTRY ORDERABLES Final Resul t Performing Organization Address City/[facility]/ZIP Co de Phone Number [facility] CLIA # [id number] [address] [place] [address] * EKG 12 lead (07/29/2025 6:43 PM STOCK CONTROL SUPERVISOR) Narrative Mychal Perera MD - 07/29/2025 6:43 PM STOCK CONTROL SUPERVISOR Mychal Perera MD 07/29/2025 6:43 PM EKG 12 lead Date/Time: 07/29/2025 6:43 PM Performed by: Mychal Perera MD Authorized by: Mychal Perera MD ECG interpreted by ED Physician in the absence of a marble rubber: yes Rate: ECG rate assessment: age appropriate Rhythm: Rhythm Origin: sinus Rhythm morphology: narrow [place]: QRS axis: Normal Intervals: normal QRSTT: QRSTT changes: No us Mychal Perera MD ECG ORDERABLES Final Result * CT ABDOMEN PELVIS W CONTRAST (07/29/2025 6:19 PM STOCK CONTROL SUPERVISOR) Anatomical Region Laterality Modality Abdomen Computed Tomogra phy 07/29/2025 6:54 PM STOCK CONTROL SUPERVISOR Impressions 07/29/2025 6:54 PM STOCK CONTROL SUPERVISOR IMPRESSION: 1. Mild diffuse wall-thickening of the [...] vein is obscured by metallic artifact. 7. Dmos-tn-mlmlgugr diastases recti of the mid anterior abdominal wall. 8. Indwelling anterior abdominal wall surgical meshes. 9. Indwelling IVC filter. 10. Hysterectomy. 11. Postsurgical changes of an arthrodesis at L4-L5. 12. Postsurgical changes of the right hip arthroplasty. 13. Postsurgical changes of a TAVR. Narrative 07/29/2025 6:54 PM STOCK CONTROL SUPERVISOR EXAM: CT ABDOMEN PELVIS W CONTRAST DIAGNOSIS/REASON [...] bilateral upper anterior abdominal wall. There is mvgg-fn-dedatvii diastases recti of the mid anterior abdominal [...] bilateral upper anterior abdominal wall. There is hxpu-wn-agmaitlu diastases recti of the mid anterior abdominal [...] vein is obscured by metallic artifact. 7. Rclo-ap-gwxpzxkq diastases recti of the mid anterior abdominal wall. 8. Indwelling anterior abdominal wall surgical meshes. 9. Indwelling IVC filter. 10. Hysterectomy. 11. Postsurgical changes of an arthrodesis at L4-L5. 12. Postsurgical changes of the right hip arthroplasty. 13. Postsurgical changes of a TAVR. us Mychal Perera MD CT ORDERABLES Final Result * LIPASE (07/29/2025 5:20 PM STOCK CONTROL SUPERVISOR) LIPASE 18 13 - 60 U/L 07/29/2025 5:51 PM STOCK CONTROL SUPERVISOR [facility] Blood BLOOD SPECIMEN / Unknown Collection / Unknown 07/29/2025 5:20 PM STOCK CONTROL SUPERVISOR 07/29/2025 5:33 PM STOCK CONTROL SUPERVISOR Mychal Perera MD CHEMISTRY ORDERABLES Final Result [facility] CLIA # [id number] [address] [place] [address] * DIABETES EYE EXAM (01/19/2025 2:05 PM CDT) [...] category. FASTING:UNKNOWN FASTING: UNKNOWN Test Performed at: [facility] [id number] [place] [id number] Maritza Dang MD Urine URINE SPECIMEN OBTAINED BY CLEAN CATCH PROCEDURE / Unknown 01/14/2025 3:18 PM CDT 01/15/2025 3:06 AM CDT us Norman Caldera MD URINE ORDERABLES Final Result [facility] [phone] [facility] [address] [address] [address] * (ABNORMAL) LIPID PANEL (12/06/2023 9:37 AM CDT) CHOLESTEROL 171 <200 mg/dL [facility] HDL 58 > OR = 50 mg/dL [facility] TRIGLYCERIDE 159(H) <150 mg/dL [facility] LDL CALCULATED 87 mg/dL (calc) [facility] Comment: Reference range: <100 Desirable range <100 mg/dL for primary prevention; <70 mg/dL for patients with CHD or diabetic patients with > or = 2 CHD risk factors. LDL-C is now calculated using the Adeel-Ponce calculation, which is a validated novel method providing better accuracy than the Friedewald equation in the estimation of LDL-C. Adeel SS et al. KAITLIN. 2013;310(19): 6080-0129 (http://education.Kublax.Crisp/faq/TRV877) CHOL/HDL RATIO 2.9 <5.0 (calc) [facility] TOTAL NON-HDL CHOL(LDL+VLDL) 113 <130 mg/dL (calc) [facility] Comment: For patients with diabetes plus 1 major ASCVD risk factor, treating to a non-HDL-C goal of <100 mg/dL (LDL-C of <70 mg/dL) is considered a therapeutic option. Test Performed at: [facility] [address] [place] [id number] Maritza Dang MD Blood 12/06/2023 9:37 AM CDT 12/07/2023 2:47 AM CDT us Renea BARRIENTOS CHEMISTRY ORDERABLES Final Re sult [facility] [phone] [place] [address] [place] [address] * COLONOSCOPY REPORT (09/26/2023 8:32 AM STOCK CONTROL SUPERVISOR) Narrative Procedure Note Bren Vinson MD - 09/26/2023 8:32 AM CST [facility] Patient Name: Rico Bal Procedure Date: [...] bowel preparation was evaluated using the BBPS ([place] Bowel Preparation Scale) with scores of: Right [...] represents Heyde syndrome. cc note to her railroad car letterer recommending initiation of either sub Q octreotide or thalidomide for the treatment of transfusion dependant bleeding AVMs. Replacement of the aortic valve has a significant chance of improving bleeding. Could perform capsule study but doubt this will change of address clerk. Bren Vinson, 09/26/2023 8:32:39 AM Number of Addenda: 0 Note Initiated On: 09/26/2023 6:48 AM Scope Withdrawal Time 0 hours 10 minutes 28 seconds Scope In: 7:41:24 AM Scope Out: 8:15:21 AM [address] [place], [place] Bren Vinson MD GI PROCEDURE ORDERABLES Final Result * (ABNORMAL) POC OCCULT BLOOD UP TO 3 CARDS (07/15/2023 1:42 PM CDT) OCCULT BLOOD 1 CARD POC Positive(A ) Negative [facility] OCCULT BLOOD 2 CARD POC Positive(A ) Negative [facility] OCCULT BLOOD 3 CARD POC Positive(A ) Negative [facility] INTERNAL KIT QC POC Pass Pass [facility] CARD LOT NUMBER POC [id number] [facility] CARD EXPIRATION DATE POC 05/24/2024 [facility] DEVELOPER LOT NUMBER POC [id number] [facility] DEVELOPER EXPIRATION DATE POC 11/21/2024 [facility] Stool STOOL SPECIMEN / Unknown 07/15/2023 1:42 PM CDT Emily Garcia TOOL SETTER APPRENTICE POINT OF CARE TESTING Fin al Result Performing Organization Address City/State/[facility] Co de Phone Number [facility] CLIA# [id number] [address] [place] [address] * XR DEXA BONE DENSITY AXIAL 1 OR MORE SITES (10/23/2013) Anatomical Region Laterality Modality Other Shanika Zavala TOOL SETTER APPRENTICE DIAGNOSTIC IMAGING ORDERABLES Final Result from Last 3 Months or Most Recently Relevant to Health Maintenance Additional Health Concerns Active Problems Noted Date Diagnosed Date PALLAVI MYC HYPERTENSION CARE PLAN PROBLEM 4 Insurance [facility] PPO [facility] [address] * Guarantor: RICO BAL Account Type Relation to Patient Date of Phone Billing Address Personal/Family [address] [address] RX [facility] Medicare Part D RX [facility] PL[employer] (INTERNAL) [facility] Internal [facility] Advance Directives For more information, please contact: [phone] Documents on File Type Date Recorded Patient Wireworker Supervisor Expl anation Advance Directive POA 03/01/2015 1:22 [...] 11:32 AM 08/05/2023 3:09 PM Care Teams Coffee Grinder Relationship Specialty Start Date End Date Norman Caldera MD [address] [place] [phone] PCP - General Family Practice 09/06/23
--- OUTSIDE RECORDS SUMMARY | 2025-09-22 19:55 | XMS_ITS | Encounter Summary ---
Author Organization [facility] Address [address] [place] [address] Care Team Providers Care Multicut Line Operator Name Role Phone Charles Delgadillo MD Primary Care Provider [phone] Encounter Details Date Type Department Care Team (Latest Contact Info) Description 03/20/2004 Outpatient [facility] Family Medicine [place] [address] [facility] [address] [place] [address] Thomas Anne MD [address] [phone] CALCANEAL SPUR (Primary Dx); OSTEOPOROSIS NOS Social History Tobacco Use Types Packs/Day Years Used Date Smoking Tobacco: Never Assessed Comments Unknown Sex and Gender Information Value Date Recorded Sex Assigned at Not on file Legal Sex Female 5:59 AM BREEDING TECHNICIAN Gender Identity Not on file Sexual Orientation Not on file documented as of this encounter Plan of Treatment Not on file documented as of this encounter Visit Diagnoses Diagnosis Calcaneal spur- Primary Osteoporosis, unspecified documented in this encounter Care Teams Multicut Line Operator Relationship Specialty Start Date End Date Charles Delgadillo MD [address] [place] [address] PCP - General Family Practice 09/05/10 documented as of this encounter
--- OUTSIDE RECORDS SUMMARY | 2025-09-22 19:55 | XMS_ITS | Encounter Summary ---
Author Organization [facility] Address [address] [place] [address] Care Team Providers Care Precision Honer Name Role Phone Charles Delgadillo MD Primary Care Provider [phone] Encounter Details Date Type Department Care Team (Latest Contact Info) Description 09/11/2005 Outpatient [facility] [address] [place] [address] Miller Bustos DPM NO ADDRESS ON FILE TARSAL TUNNEL SYNDROME (Primary Dx); TENOSYNOVITIS FOOT/ANKLE Social History Tobacco Use Types Packs/Day Years Used Date Smoking Tobacco: Never Assessed Comments Unknown Sex and Gender Information Value Date Recorded Sex Assigned at Not on file Legal Sex Female 5:59 AM HEEL SEAT FITTER Gender Identity Not on file Sexual Orientation Not on file documented as of this encounter Plan of Treatment Not on file documented as of this encounter Visit Diagnoses Diagnosis Tarsal tunnel syndrome- Primary Tenosynovitis of foot and ankle documented in this encounter Care Teams Precision Honer Relationship Specialty Start Date End Date Charles Delgadillo MD [address] [place] [address] PCP - General Family Practice 09/05/10 documented as of this encounter
--- OUTSIDE RECORDS SUMMARY | 2025-09-22 19:55 | XMS_ITS | Encounter Summary ---
Author Organization [facility] Address [address] [place] [address] Care Team Providers Care Tower Excavator Operator Name Role Phone Charles Delgadillo MD Primary Care Provider [phone] Encounter Details Date Type Department Care Team (Latest Contact Info) Description 04/06/2004 Outpatient Historical [facility] Orthopedics- [address] [place] [address] Gamaliel Gracia MD [address] [place] [phone] ROTATOR CUFF SYND NOS (Primary Dx); JOINT PAIN-SHLDER Social History Tobacco Use Types Packs/Day Years Used Date Smoking Tobacco: Never Assessed Comments Unknown Sex and Gender Information Value Date Recorded Sex Assigned at Not on file Legal Sex Female 5:59 AM SALES ENGINEER ENGINEERED PRODUCTS Gender Identity Not on file Sexual Orientation Not on file documented as of this encounter Plan of Treatment Not on file documented as of this encounter Visit Diagnoses Diagnosis Disorders of bursae and tendons in shoulder region, unspecified- Primary Pain in joint, shoulder region documented in this encounter Care Teams Tower Excavator Operator Relationship Specialty Start Date End Date Charles Delgadillo MD [address] [place] [address] PCP - General Family Practice 09/05/10 documented as of this encounter
--- OUTSIDE RECORDS SUMMARY | 2025-09-22 19:55 | XMS_ITS | Encounter Summary ---
Author Organization [facility] Address [address] [place] [address] Care Team Providers Care Building Code Inspector Name Role Phone Charles Delgadillo MD Primary Care Provider [phone] Encounter Details Date Type Department Care Team (Latest Contact Info) Description 06/19/2006 Outpatient Historical [facility] [address] [place] [phone] Melvin Caro Thoracic or Lumbosacral Neuritis or Radiculitis, Unspecified (Primary Dx) Social History Tobacco Use Types Packs/Day Years Used Date Smoking Tobacco: Never Assessed Comments Unknown Sex and Gender Information Value Date Recorded Sex Assigned at Not on file Legal Sex Female 5:59 AM BOOTH USHER Gender Identity Not on file Sexual Orientation Not on file documented as of this encounter Plan of Treatment Not on file documented as of this encounter Visit Diagnoses Diagnosis Thoracic or lumbosacral neuritis or radiculitis, unspecified- Primary documented in this encounter Care Teams Building Code Inspector Relationship Specialty Start Date End Date Charles Delgadillo MD [address] [place] [address] PCP - General Family Practice 09/05/10 documented as of this encounter
--- OUTSIDE RECORDS SUMMARY | 2025-09-22 19:55 | XMS_ITS | Encounter Summary ---
Author Organization [facility] Address [address] [place] [address] Care Team Providers Care Jewel Cupping Machine Operator Name Role Phone Charles Delgadillo MD Primary Care Provider [phone] Encounter Details Date Type Department Care Team (Latest Contact Info) Description 12/14/2005 Outpatient [facility] Medicine [place] [address] [facility] [address] [place] [address] Thomas Anne MD [address] [phone] Other and Unspecified Hyperlipidemia (Primary Dx); Peptic Ulcer, Site NOS; Unspecified Disorder of Kidney and Ureter Social History Tobacco Use Types Packs/Day Years Used Date Smoking Tobacco: Never Assessed Comments Unknown Sex and Gender Information Value Date Recorded Sex Assigned at Not on file Legal Sex Female 5:59 AM QUILL WORKER Gender Identity Not on file Sexual Orientation Not on file documented as of this encounter Plan of Treatment Not on file documented as of this encounter Visit Diagnoses Diagnosis Other and unspecified hyperlipidemia- Primary Peptic ulcer, unspecified site, unspecified as acute or chronic, without mention of hemorrhage, perforation, or obstruction Unspecified disorder of kidney and ureter documented in this encounter Care Teams Jewel Cupping Machine Operator Relationship Specialty Start Date End Date Charles Delgadillo MD [address] [place] [address] PCP - General Family Practice 09/05/10 documented as of this encounter
--- OUTSIDE RECORDS SUMMARY | 2025-09-22 19:55 | XMS_ITS | Encounter Summary ---
Author Organization [facility] Address [address] [place] [address] Care Team Providers Care Lead Designer Name Role Phone Charles Delgadillo MD Primary Care Provider [phone] Encounter Details Date Type Department Care Team (Latest Contact Info) Description 04/27/2004 Outpatient Historical [facility] Orthopedics- [address] [place] [address] Gamaliel Gracia MD [address] [place] [phone] LOC PRIM OSTEOART-SHLDER (Primary Dx) Social History Tobacco Use Types Packs/Day Years Used Date Smoking Tobacco: Never Assessed Comments Unknown Sex and Gender Information Value Date Recorded Sex Assigned at Not on file Legal Sex Female 5:59 AM DROP TESTER Gender Identity Not on file Sexual Orientation Not on file documented as of this encounter Plan of Treatment Not on file documented as of this encounter Visit Diagnoses Diagnosis Primary localized osteoarthrosis, shoulder region- Primary documented in this encounter Care Teams Lead Designer Relationship Specialty Start Date End Date Charles Delgadillo MD [address] [place] [address] PCP - General Family Practice 09/05/10 documented as of this encounter
--- OUTSIDE RECORDS SUMMARY | 2025-09-22 19:55 | XMS_ITS | Encounter Summary ---
Author Organization [facility] Address [address] [place] [address] Care Team Providers Care Hot Billet Shear Operator Name Role Phone Charles Delgadillo MD Primary Care Provider [phone] Encounter Details Date Type Department Care Team (Latest Contact Info) Description 04/19/2004 Outpatient [facility] Podiatry-[facility] [address] [place] [phone] Miller Bustos DPM NO ADDRESS ON FILE TENOSYNOVITIS FOOT/ANKLE (Primary Dx) Social History Tobacco Use Types Packs/Day Years Used Date Smoking Tobacco: Never Assessed Comments Unknown Sex and Gender Information Value Date Recorded Sex Assigned at Not on file Legal Sex Female 5:59 AM PAYROLL ASSOCIATE Gender Identity Not on file Sexual Orientation Not on file documented as of this encounter Plan of Treatment Not on file documented as of this encounter Visit Diagnoses Diagnosis Tenosynovitis of foot and ankle- Primary documented in this encounter Care Teams Hot Billet Shear Operator Relationship Specialty Start Date End Date Charles Delgadillo MD [address] [place] [address] PCP - General Family Practice 09/05/10 documented as of this encounter
--- OUTSIDE RECORDS SUMMARY | 2025-09-22 19:55 | XMS_ITS | Encounter Summary ---
Author Organization [facility] Address [address] [place] [address] Care Team Providers Care School Library Media Program Director Name Role Phone Charles Delgadillo MD Primary Care Provider [phone] Encounter Details Date Type Department Care Team (Latest Contact Info) Description 07/18/2004 Outpatient [facility] Medicine [place] [facility] [address] [facility] [address] [place] [address] Thomas Anne MD [address] [address] OSTEOARTHROS NOS-UNSPEC (Primary Dx); HYPERLIPIDEMIA NEC/NOS Social History Tobacco Use Types Packs/Day Years Used Date Smoking Tobacco: Never Assessed Comments Unknown Sex and Gender Information Value Date Recorded Sex Assigned at Not on file Legal Sex Female 5:59 AM PORCELAIN WAXER Gender Identity Not on file Sexual Orientation Not on file documented as of this encounter Plan of Treatment Not on file documented as of this encounter Visit Diagnoses Diagnosis Osteoarthrosis, unspecified whether generalized or localized, unspecified site- Primary Other and unspecified hyperlipidemia documented in this encounter Care Teams School Library Media Program Director Relationship Specialty Start Date End Date Charles Delgadillo MD [address] [place] [phone] PCP - General Family Practice 09/05/10 documented as of this encounter
--- OUTSIDE RECORDS SUMMARY | 2025-09-22 19:55 | XMS_ITS | Encounter Summary ---
Author Organization [facility] Address [address] [place] [address] Care Team Providers Care Peoplesoft Financials Consultant Name Role Phone Charles Delgadillo MD Primary Care Provider [phone] Encounter Details Date Type Department Care Team (Latest Contact Info) Description 12/10/2005 Outpatient [facility] Podiatry-[facility] [place] [address] [place] [address] Miller Bustos DPCaryl NO ADDRESS ON FILE Plantar Nerve Lesion (Primary Dx); Other Bursitis Disorders Social History Tobacco Use Types Packs/Day Years Used Date Smoking Tobacco: Never Assessed Comments Unknown Sex and Gender Information Value Date Recorded Sex Assigned at Not on file Legal Sex Female 5:59 AM SCREW MACHINE TENDER Gender Identity Not on file Sexual Orientation Not on file documented as of this encounter Plan of Treatment Not on file documented as of this encounter Visit Diagnoses Diagnosis Plantar nerve lesion- Primary Lesion of plantar nerve Other bursitis disorders documented in this encounter Care Teams Peoplesoft Financials Consultant Relationship Specialty Start Date End Date Charles eDlgadillo MD [address] [place] [address] PCP - General Family Practice 09/05/10 documented as of this encounter
--- OUTSIDE RECORDS SUMMARY | 2025-09-22 19:55 | XMS_ITS | Encounter Summary ---
Author Organization [facility] Address [address] [place] [address] Care Team Providers Care Parts Salesman Name Role Phone Charles Delgadillo MD Primary Care Provider [phone] Encounter Details Date Type Department Care Team (Latest Contact Info) Description 04/08/2006 Outpatient [facility] Medicine [address] [phone] Lamar Pineda NP NO ADDRESS ON FILE Spasm of Muscle (Primary Dx); Unspecified Myalgia and Myositis; Unspecified Asthma; Other Sleep Disturbances Social History Tobacco Use Types Packs/Day Years Used Date Smoking Tobacco: Never Assessed Comments Unknown Sex and Gender Information Value Date Recorded Sex Assigned at Not on file Legal Sex Female 5:[address] Gender Identity Not on file Sexual Orientation Not on file documented as of this encounter Plan of Treatment Not on file documented as of this encounter Visit Diagnoses Diagnosis Spasm of muscle- Primary Myalgia and myositis, unspecified Mylagia and myositis, unspecified Unspecified asthma(493.90) Unspecified asthma Other sleep disturbances documented in this encounter Care Teams Parts Salesman Relationship Specialty Start Date End Date Charles Delgadillo MD [address] [place] [address] PCP - General Family Practice 09/05/10 documented as of this encounter
--- OUTSIDE RECORDS SUMMARY | 2025-09-22 19:55 | XMS_ITS | Encounter Summary ---
Author Organization [employer] [facility] Address [address] [place] [address] Care Team Providers Care Airplane Coverer Name Role Phone Charles Delgadillo MD Primary Care Provider [phone] Encounter Details Date Type Department Care Team (Late st Contact Info) Description 11/27/[address] [facility] Neurology [address], [address] [place] [address] Tristen Aragon MD [address] [place] [address] Cervicalgia (Primary Dx) Social History Tobacco Use Types Packs/Day Years Used Date Smoking Tobacco: Never Assessed Comments Unknown Sex and Gender Information Value Date Recorded Sex Assigned at Not on file Legal Sex Female 5:59 AM FILLER SHREDDER HELPER Gender Identity Not on file Sexual Orientation Not on file documented as of this encounter Plan of Treatment Not on file documented as of this encounter Visit Diagnoses Diagnosis Cervicalgia- Primary documented in this encounter Care Teams Airplane Coverer Relationship Specialty Start Date End Date Charles Delgadillo MD [address], [place] [address] PCP - General Family Practice 09/05/10 documented as of this encounter
--- OUTSIDE RECORDS SUMMARY | 2025-09-22 19:55 | XMS_ITS | Encounter Summary ---
Author Organization [facility] Address [address] [place] [address] Care Team Providers Care Artist'S Model Name Role Phone Charles Delgadillo MD Primary Care Provider [phone] Encounter Details Date Type Department Care Team (Latest Contact Info) Description 03/13/2004 Outpatient Historical [facility] Family Medicine [address] [phone] Lamar Pineda NP NO ADDRESS ON FILE SPRAIN OF ANKLE NOS (Primary Dx); EXOSTOSIS, SITE NOS Social History Tobacco Use Types Packs/Day Years Used Date Smoking Tobacco: Never Assessed Comments Unknown Sex and Gender Information Value Date Recorded Sex Assigned at Not on file Legal Sex Female 5:59 AM WOOL HANKER Gender Identity Not on file Sexual Orientation Not on file documented as of this encounter Plan of Treatment Not on file documented as of this encounter Visit Diagnoses Diagnosis Sprain of ankle, unspecified site- Primary Exostosis of unspecified site documented in this encounter Care Teams Artist'S Model Relationship Specialty Start Date End Date Charles Delgadillo MD [address] [place] [address] PCP - General Family Practice 09/05/10 documented as of this encounter
--- OUTSIDE RECORDS SUMMARY | 2025-09-22 19:55 | XMS_ITS | Encounter Summary ---
Author Organization [employer] [facility] Address [address] [place] [address] Care Team Providers Care Flame Burner Name Role Phone Charles Delgadillo MD Primary Care Provider [phone] Reason for Referral * Radiology Services (Routine) - Closed Specialty Diagnoses / Procedures Referred By Tisha t Referred To Contact Diagnoses Visit for screening mammogram Procedures MAMMO 3D SCREEN BILATERAL MOBILE Charles Delgadillo MD [address] [place] [address] Phone: tel: fax: Referral ID Status Reason Start Date Expiration Date Visits Re quested Visits Authorized [id number] Closed 10/19/2019 11/18/2020 1 1 LE REPAIRER Encounter Details Date Type Department Care Team (Latest Contact Info) Description 10/19/2019 Ancillary Orders [facility] [address] [address] Charles Delgadillo MD [address] [place] [address] Visit for screening mammogram Social History Tobacco Use Types Packs/Day Years Used Date Smoking Tobacco: Never Smokeless Tobacco: Never Alcohol Use Standard Drinks/Week Comments No 0 (1 standard drink = 0.6 oz pur e alcohol) Comments No Sex and Gender Information Value Date Recorded Sex Assigned at Not on file Legal Sex Female 5:59 AM TIPPLE REPAIRER Gender Identity Not on file Sexual Orientation Not on file 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
--- OUTSIDE RECORDS SUMMARY | 2025-09-22 19:55 | XMS_ITS | Encounter Summary ---
Author Organization [facility] Address [address] [place] [address] Care Team Providers Care Invoicing Machine Operator Name Role Phone Charles Delgadillo MD Primary Care Provider [phone] Encounter Details Date Type Department Care Team (Latest Contact Info) Description 04/07/2004 Outpatient Historical [facility] Imaging Services [address] [place] [phone] Gamaliel Gracia MD [address] [place] [address] POSTOP HETEROTOPIC CALC (Primary Dx) Social History Tobacco Use Types Packs/Day Years Used Date Smoking Tobacco: Never Assessed Comments Unknown Sex and Gender Information Value Date Recorded Sex Assigned at Not on file Legal Sex Female 5:59 AM 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
--- OUTSIDE RECORDS SUMMARY | 2025-09-22 19:55 | XMS_ITS | Encounter Summary ---
Author Organization [facility] Address [address] [place] [address] Care Team Providers Care Analytics Leader Name Role Phone Charles Delgadillo MD Primary Care Provider [phone] Encounter Details Date Type Department Care Team (Late st Contact Info) Description 05/08/2006 Outpatient Historical [facility] Imaging Services [place] [address] [place] [address] Social History Tobacco Use Types Packs/Day Years Used Date Smoking Tobacco: Never Assessed Comments Unknown Sex and Gender Information Value Date Recorded Sex Assigned at Not on file Legal Sex Female 5:59 AM INTEGRITY SPECIALIST Gender Identity Not on file Sexual [...] L5-S1 appears to touch the exiting left W0vyriz root. Mild degenerativedisc disease at L4-L5. - Dictated By: Seth Pepe M.D. Electronically Signed By: Seth Pepe M.D. Date Signed: 05/08/06 Tristen Aragon MD MR ORDERABLES Final Resul t documented in this encounter Visit Diagnoses Not on filedocumented in this encounter Care Teams Analytics Leader Relationship Specialty Start Date End Date Charles Delgadillo MD [address] [place] [address] PCP - General Family Practice 09/05/10 documented as of this encounter
--- OUTSIDE RECORDS SUMMARY | 2025-09-22 19:55 | XMS_ITS | Encounter Summary ---
Author Organization [facility] Address [address] [place] [address] Care Team Providers Care Professor Of French Name Role Phone Charles Delgadillo MD Primary Care Provider [phone] Encounter Details Date Type Department Care Team (Latest Contact Info) Description 07/20/2004 Outpatient Historical [facility] Orthopedics- [address] [place] [address] [place] [address] Gamaliel Gracia MD [address] [place] [phone] SHOULDER REGION DIS NEC (Primary Dx); SUPERIOR GLENOID LABRUM LES; CHONDROMALACIA Social History Tobacco Use Types Packs/Day Years Used Date Smoking Tobacco: Never Assessed Comments Unknown Sex and Gender Information Value Date Recorded Sex Assigned at Not on file Legal Sex Female 5:59 AM DIRECTOR OF HOSPITALITY Gender Identity Not on file Sexual Orientation Not on file documented as of this encounter Plan of Treatment Not on file documented as of this encounter Visit Diagnoses Diagnosis Other affections of shoulder region, not elsewhere classified- Primary Superior glenoid labrum lesion Chondromalacia documented in this encounter Care Teams Professor Of French Relationship Specialty Start Date End Date Charles Delgadillo MD [address] [place] [phone] PCP - General Family Practice 09/05/10 documented as of this encounter
--- OUTSIDE RECORDS SUMMARY | 2025-09-22 19:55 | XMS_ITS | Encounter Summary ---
Author Organization [facility] Address [address] [place] [address] Care Team Providers Care Fusion Juncture Grinder Name Role Phone Charles Delgadillo MD Primary Care Provider [phone] Encounter Details Date Type Department Care Team (Latest Contact Info) Description 07/15/2006 Outpatient Historical [address] [phone] Roz Capellan MD [address] [place] [phone] Unspecified Essential Hypertension (Primary Dx); Insomnia, Unspecified; Unspecified Endocrine Disorder; Unspecified Disorder of Kidney and Ureter; Vaccine for influenza Social History Tobacco Use Types Packs/Day Years Used Date Smoking Tobacco: Never Assessed Comments Unknown Sex and Gender Information Value Date Recorded Sex Assigned at Not on file Legal Sex Female 5:59 AM CLOTHING SORTER Gender Identity Not on file Sexual Orientation Not on file documented as of this encounter Plan of Treatment Not on file documented as of this encounter Visit Diagnoses Diagnosis Unspecified essential hypertension- Primary Insomnia, unspecified Unspecified endocrine disorder Unspecified disorder of kidney and ureter Vaccine for influenza Need for prophylactic vaccination and inoculation against influenza documented in this encounter Care Teams Fusion Juncture Grinder Relationship Specialty Start Date End Date Charles Delgadillo MD [address] [address] PCP - General Family Practice 09/05/10 documented as of this encounter
--- OUTSIDE RECORDS SUMMARY | 2025-09-22 19:55 | XMS_ITS | Encounter Summary ---
Author Organization [facility] Address [address] [place] [address] Care Team Providers Care Turbine Room Attendant Name Role Phone Charles Delgadillo MD Primary Care Provider [phone] Encounter Details Date Type Department Care Team (Latest Contact Info) Description 02/03/2004 Outpatient Historical [facility] Orthopedics- [address] [place] [address] [place] [address] Gamaliel Gracia MD [address] [place] [phone] SHOULDER REGION DIS NEC (Primary Dx) Social History Tobacco Use Types Packs/Day Years Used Date Smoking Tobacco: Never Assessed Comments Unknown Sex and Gender Information Value Date Recorded Sex Assigned at Not on file Legal Sex Female 5:59 AM CINNAMON GRINDER Gender Identity Not on file Sexual Orientation Not on file documented as of this encounter Plan of Treatment Not on file documented as of this encounter Visit Diagnoses Diagnosis Other affections of shoulder region, not elsewhere classified- Primary documented in this encounter Care Teams Turbine Room Attendant Relationship Specialty Start Date End Date Charles Delgadillo MD [address] [place] [address] PCP - General Family Practice 09/05/10 documented as of this encounter
--- OUTSIDE RECORDS SUMMARY | 2025-09-22 19:55 | XMS_ITS | Encounter Summary ---
Author Organization [facility] Address [address] [place] [address] Care Team Providers Care Career Technical Counselor Name Role Phone Charles Delgadillo MD Primary Care Provider [phone] Encounter Details Date Type Department Care Team (Latest Contact Info) Description 06/19/2004 Outpatient [facility] Podiatry-[facility] [place] [address] [place] [address] Miller Bustos DPM NO ADDRESS ON FILE TENOSYNOVITIS FOOT/ANKLE (Primary Dx); ENTHESOPATHY, SITE NOS; Plantar fibromatosis; SPASM OF MUSCLE Social History Tobacco Use Types Packs/Day Years Used Date Smoking Tobacco: Never Assessed Comments Unknown Sex and Gender Information Value Date Recorded Sex Assigned at Not on file Legal Sex Female 5:59 AM 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
--- OUTSIDE RECORDS SUMMARY | 2025-09-22 19:55 | XMS_ITS | Encounter Summary ---
Author Organization [facility] Address [address] [place] [address] Care Team Providers Care Lands Resource Manager Name Role Phone Charles Delgadillo MD Primary Care Provider [phone] Encounter Details Date Type Department Care Team (Late st Contact Info) Description 05/08/2006 Outpatient Historical [facility] Imaging Services [place] [id number] [facility] [place] [phone] Tristen Aragon MD [address] [place] [address] Other Allied Disorders of Spine (Primary Dx) Social History Tobacco Use Types Packs/Day Years Used Date Smoking Tobacco: Never Assessed Comments Unknown Sex and Gender Information Value Date Recorded Sex Assigned at Not on file Legal Sex Female 5:59 AM BOOK REPAIRER Gender Identity Not on file Sexual Orientation Not on file documented as of this encounter Plan of Treatment Not on file documented as of this encounter Visit Diagnoses Diagnosis Other allied disorders of spine- Primary documented in this encounter Care Teams Lands Resource Manager Relationship Specialty Start Date End Date Charles Delgadillo MD [address] [address] PCP - General Family Practice 09/05/10 documented as of this encounter
--- OUTSIDE RECORDS SUMMARY | 2025-09-22 19:55 | XMS_ITS | Encounter Summary ---
Author Organization [facility] Address [address] [place] [address] Care Team Providers Care Cardiology Associate Name Role Phone Charles Delgadillo MD Primary Care Provider Encounter Details Date Type Department Care Team (Latest Contact Info) Description 12/31/2005 Outpatient [facility] Podiatry-[facility] [address] [place] [address] Miller Bustos DPM NO ADDRESS ON FILE Metatarsus Varus (Primary Dx); Other Bursitis Disorders Social History Tobacco Use Types Packs/Day Years Used Date Smoking Tobacco: Never Assessed Comments Unknown Sex and Gender Information Value Date Recorded Sex Assigned at Not on file Legal Sex Female 5:59 AM FOOD SPECIALIST Gender Identity Not on file Sexual Orientation Not on file documented as of this encounter Plan of Treatment Not on file documented as of this encounter Visit Diagnoses Diagnosis Metatarsus varus- Primary Congenital metatarsus varus Other bursitis disorders documented in this encounter Care Teams Cardiology Associate Relationship Specialty Start Date End Date Charles Delgadillo MD [address] [place] [address] PCP - General Family Practice 09/05/10 documented as of this encounter
--- OUTSIDE RECORDS SUMMARY | 2025-09-22 19:55 | XMS_ITS | Encounter Summary ---
Author Organization [employer] [facility] Address [address] [place] [address] Care Team Providers Care Potato Spotter Name Role Phone Charles Delgadillo MD Primary Care Provider [phone] Encounter Details Date Type Department Care Team (Latest Contact Info) Description 06/19/2006 Outpatient Historical [facility] Pain Management Procedures [address] [place] [address] Melvin Caro Thoracic or Lumbosacral Neuritis or Radiculitis, Unspecified (Primary Dx) Social History Tobacco Use Types Packs/Day Years Used Date Smoking Tobacco: Never Assessed Comments Unknown Sex and Gender Information Value Date Recorded Sex Assigned at Not on file Legal Sex Female 5:59 AM ACCOUNT SPECIALIST Gender Identity Not on file Sexual Orientation Not on file documented as of this encounter Plan of Treatment Not on file documented as of this encounter Visit Diagnoses Diagnosis Thoracic or lumbosacral neuritis or radiculitis, unspecified- Primary documented in this encounter Care Teams Potato Spotter Relationship Specialty Start Date End Date Charles Delgadillo MD [address] [place] [address] PCP - General Family Practice 09/05/10 documented as of this encounter
--- OUTSIDE RECORDS SUMMARY | 2025-09-22 19:55 | XMS_ITS | Encounter Summary ---
Author Organization [employer] [facility] Address [address] [place] [address] Care Team Providers Care Director Of Epidemiology Name Role Phone Charles Delgadillo MD Primary Care Provider [phone] Encounter Details Date Type Department Care Team (Latest Contact Info) Description 04/24/2006 Outpatient Historical [facility] Neurology [address], [address] [place] [address] Tristen Aragon MD [address] [place] [address] Lack of Coordination (Primary Dx) Social History Tobacco Use Types Packs/Day Years Used Date Smoking Tobacco: Never Assessed Comments Unknown Sex and Gender Information Value Date Recorded Sex Assigned at Not on file Legal Sex Female 5:59 AM SUPERVISOR INDUSTRIAL GARMENT Gender Identity Not on file Sexual Orientation Not on file documented as of this encounter Plan of Treatment Not on file documented as of this encounter Visit Diagnoses Diagnosis Lack of coordination- Primary documented in this encounter Care Teams Director Of Epidemiology Relationship Specialty Start Date End Date Charles Delgadillo MD [address] [place] [address] PCP - General Family Practice 09/05/10 documented as of this encounter
--- OUTSIDE RECORDS SUMMARY | 2025-09-22 19:55 | XMS_ITS | Encounter Summary ---
Author Organization [facility] Address [address] [place] [address] Care Team Providers Care Swing Grinder Name Role Phone Charles Delgadillo MD Primary Care Provider [phone] Encounter Details Date Type Department Care Team (Latest Contact Info) Description 08/20/2005 Outpatient [facility] Family Medicine [place] [address] [facility] [address] [place] [address] Thomas Anne MD [address] [phone] ROUTINE PURSE SEINING HAND EXAMINATION (Primary Dx) Social History Tobacco Use Types Packs/Day Years Used Date Smoking Tobacco: Never Assessed Comments Unknown Sex and Gender Information Value Date Recorded Sex Assigned at Not on file Legal Sex Female 5:59 AM CORRESPONDENCE REPRESENTATIVE Gender Identity Not on file Sexual Orientation Not on file documented as of this encounter Plan of Treatment Not on file documented as of this encounter Visit Diagnoses Diagnosis Routine gynecological examination- Primary documented in this encounter Care Teams Swing Grinder Relationship Specialty Start Date End Date Charles Delgadillo MD [address] [place] [address] PCP - General Family Practice 09/05/10 documented as of this encounter
--- OUTSIDE RECORDS SUMMARY | 2025-09-22 19:55 | XMS_ITS | Encounter Summary ---
Author Organization [facility] Address [address] [place] [address] Care Team Providers Care Wood Gang Sawyer Name Role Phone Charles Delgadillo MD Primary Care Provider [phone] Encounter Details Date Type Department Care Team (Latest Contact Info) Description 05/11/2004 Outpatient [facility] Podiatry-[facility] [address] [place] [phone] Miller Bustos DPM NO ADDRESS ON FILE TENOSYNOVITIS FOOT/ANKLE (Primary Dx) Social History Tobacco Use Types Packs/Day Years Used Date Smoking Tobacco: Never Assessed Comments Unknown Sex and Gender Information Value Date Recorded Sex Assigned at Not on file Legal Sex Female 5:59 AM ROTOR COIL TAPER Gender Identity Not on file Sexual Orientation Not on file documented as of this encounter Plan of Treatment Not on file documented as of this encounter Visit Diagnoses Diagnosis Tenosynovitis of foot and ankle- Primary documented in this encounter Care Teams Wood Gang Sawyer Relationship Specialty Start Date End Date Charles Delgadillo MD [address] [place] [address] PCP - General Family Practice 09/05/10 documented as of this encounter
--- OUTSIDE RECORDS SUMMARY | 2025-09-22 19:55 | XMS_ITS | Encounter Summary ---
Author Organization [facility] Address [address] [place] [address] Care Team Providers Care Lunchroom Aide Name Role Phone Charles Delgadillo MD Primary Care Provider [phone] Encounter Details Date Type Department Care Team (Latest Contact Info) Description 10/27/2004 Outpatient [facility] Medicine [place] [address] [facility] [address] [place] [address] Thomas Anne MD [address] [phone] PITYRIASIS VERSICOLOR (Primary Dx); HYPERLIPIDEMIA NEC/NOS; HYPOTHYROIDISM NOS Social History Tobacco Use Types Packs/Day Years Used Date Smoking Tobacco: Never Assessed Comments Unknown Sex and Gender Information Value Date Recorded Sex Assigned at Not on file Legal Sex Female 5:59 AM REGIONAL BUSINESS DEVELOPMENT MANAGER Gender Identity Not on file Sexual Orientation Not on file documented as of this encounter Plan of Treatment Not on file documented as of this encounter Visit Diagnoses Diagnosis Pityriasis versicolor- Primary Other and unspecified hyperlipidemia Unspecified hypothyroidism documented in this encounter Care Teams Lunchroom Aide Relationship Specialty Start Date End Date Charles Delgadillo MD [address] [place] [phone] PCP - General Family Practice 09/05/10 documented as of this encounter
--- OUTSIDE RECORDS SUMMARY | 2025-09-22 19:55 | XMS_ITS | Encounter Summary ---
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) Social History Tobacco Use Types Packs/Day Years Used Date Smoking Tobacco: Never Assessed Comments Unknown Sex and Gender Information Value Date Recorded Sex Assigned at Not on file Legal Sex Female 5:59 AM CELL ROOM SUPERVISOR Gender Identity Not on file Sexual Orientation Not on file documented as of this encounter Plan of Treatment Not on file documented as of this encounter Visit Diagnoses Diagnosis Displacement of cervical intervertebral disc without myelopathy- Primary documented in this encounter Care Teams Medicaid Plan Compliance Director Relationship Specialty Start Date End Date Charles Delgadillo MD [address] [place] [address] PCP - General Family Practice 09/05/10 documented as of this encounter
--- OUTSIDE RECORDS SUMMARY | 2025-09-22 19:55 | XMS_ITS | Encounter Summary ---
Author Organization [facility] Address [address] [place] [address] Care Team Providers Care Desktop Technician Name Role Phone Charles Delgadillo MD Primary Care Provider Encounter Details Date Type Department Care Team (Latest Contact Info) Description 06/13/2006 Outpatient Historical [facility] Medicine [address] [phone] Roz Capellan MD [address] [place] [phone] Unspecified Arthropathy, Site Unspecified (Primary Dx); Unspecified Endocrine Disorder; Other Dyspnea and Respiratory Abnormality; Encounter for Long-Term (Current) Use of Other Medications Social History Tobacco Use Types Packs/Day Years Used Date Smoking Tobacco: Never Assessed Comments Unknown Sex and Gender Information Value Date Recorded Sex Assigned at Not on file Legal Sex Female 5:59 AM SHEET HEATER Gender Identity Not on file Sexual Orientation Not on file documented as of this encounter Plan of Treatment Not on file documented as of this encounter Visit Diagnoses Diagnosis Arthropathy, unspecified, site unspecified- Primary Unspecified endocrine disorder Other dyspnea and respiratory abnormality Encounter for long-term (current) use of other medications documented in this encounter Care Teams Desktop Technician Relationship Specialty Start Date End Date Charles Delgadillo MD [address] [place] [address] PCP - General Family Practice 09/05/10 documented as of this encounter
--- OUTSIDE RECORDS SUMMARY | 2025-09-22 19:55 | XMS_ITS | Encounter Summary ---
Author Organization [facility] Address [address] [place] [address] Care Team Providers Care Sap Consultant Name Role Phone Charles Delgadillo MD Primary Care Provider [phone] Encounter Details Date Type Department Care Team (Latest Contact Info) Description 01/02/2005 Outpatient [facility] Medicine [place] 104 [facility] [address] [place] [address] Thomas Anne MD [address] [address] OSTEOARTHROS NOS-UNSPEC (Primary Dx); INSOMNIA NEC Social History Tobacco Use Types Packs/Day Years Used Date Smoking Tobacco: Never Assessed Comments Unknown Sex and Gender Information Value Date Recorded Sex Assigned at Not on file Legal Sex Female 5:59 AM BARREL CHARRER Gender Identity Not on file Sexual Orientation Not on file documented as of this encounter Plan of Treatment Not on file documented as of this encounter Visit Diagnoses Diagnosis Osteoarthrosis, unspecified whether generalized or localized, unspecified site- Primary Insomnia, unspecified documented in this encounter Care Teams Sap Consultant Relationship Specialty Start Date End Date Charles Delgadillo MD [address] [place] [phone] PCP - General Family Practice 09/05/10 documented as of this encounter
--- OUTSIDE RECORDS SUMMARY | 2025-09-22 19:55 | XMS_ITS | Encounter Summary ---
Author Organization [facility] Address [address] [place] [address] Care Team Providers Care Manager Credit Risk Name Role Phone Charles Delgadillo MD Primary Care Provider [phone] Encounter Details Date Type Department Care Team (Latest Contact Info) Description 06/05/2005 Outpatient [facility] Podiatry-[facility] [address] [place] [address] Miller Bustos DPM NO ADDRESS ON FILE LOWER LEG INJURY NOS (Primary Dx); MONONEURITIS LEG NOS; Plantar fibromatosis Social History Tobacco Use Types Packs/Day Years Used Date Smoking Tobacco: Never Assessed Comments Unknown Sex and Gender Information Value Date Recorded Sex Assigned at Not on file Legal Sex Female 5:59 AM SUPERVISOR STONE Gender Identity Not on file Sexual Orientation Not on file documented as of this encounter Plan of Treatment Not on file documented as of this encounter Visit Diagnoses Diagnosis Injury, other and unspecified, knee, leg, ankle, and foot- Primary Mononeuritis of lower limb, unspecified Plantar fibromatosis Plantar fascial fibromatosis documented in this encounter Care Teams Manager Credit Risk Relationship Specialty Start Date End Date Charles Delgadillo MD [address] [place] [address] PCP - General Family Practice 09/05/10 documented as of this encounter
--- OUTSIDE RECORDS SUMMARY | 2025-09-22 19:55 | XMS_ITS | Encounter Summary ---
Author Organization [employer] [facility] Address [address] [place] [address] Care Team Providers Care Client Server Programmer Name Role Phone Charles Delgadillo MD Primary Care Provider [phone] Encounter Details Date Type Department Care Team (Latest Contact Info) Description 08/27/[address] [facility] Pain Management Procedures [address] [place] [address] Melvin Caro Thoracic or Lumbosacral Neuritis or Radiculitis, Unspecified (Primary Dx) Social History Tobacco Use Types Packs/Day Years Used Date Smoking Tobacco: Never Assessed Comments Unknown Sex and Gender Information Value Date Recorded Sex Assigned at Not on file Legal Sex Female 5:59 AM FILLER PICKER Gender Identity Not on file Sexual Orientation Not on file documented as of this encounter Plan of Treatment Not on file documented as of this encounter Visit Diagnoses Diagnosis Thoracic or lumbosacral neuritis or radiculitis, unspecified- Primary documented in this encounter Care Teams Client Server Programmer Relationship Specialty Start Date End Date Charles Delgadillo MD [address] [place] [address] PCP - General Family Practice 09/05/10 documented as of this encounter
--- OUTSIDE RECORDS SUMMARY | 2025-09-22 19:55 | XMS_ITS | Encounter Summary ---
Author Organization [facility] Address [address] [place] [address] Care Team Providers Care Dissolver Operator Name Role Phone Charles Delgadillo MD Primary Care Provider [phone] Encounter Details Date Type Department Care Team (Latest Contact Info) Description 06/06/2004 Outpatient Historical [facility] Orthopedics- [address] [place] [address] Gamaliel Garcia MD [address] [place] [phone] SHOULDER REGION DIS NEC (Primary Dx); SUPERIOR GLENOID LABRUM LES; CHONDROMALACIA Social History Tobacco Use Types Packs/Day Years Used Date Smoking Tobacco: Never Assessed Comments Unknown Sex and Gender Information Value Date Recorded Sex Assigned at Not on file Legal Sex Female 5:59 AM GREEN MEAT PACKER Gender Identity Not on file Sexual Orientation Not on file documented as of this encounter Plan of Treatment Not on file documented as of this encounter Visit Diagnoses Diagnosis Other affections of shoulder region, not elsewhere classified- Primary Superior glenoid labrum lesion Chondromalacia documented in this encounter Care Teams Dissolver Operator Relationship Specialty Start Date End Date Charles Delgadillo MD [address] [place] [phone] PCP - General Family Practice 09/05/10 documented as of this encounter
--- OUTSIDE RECORDS SUMMARY | 2025-09-22 19:55 | XMS_ITS | Encounter Summary ---
Author Organization [facility] Address [address] [place] [address] Care Team Providers Care Senior Energy Analyst Name Role Phone Charles Delgadillo MD Primary Care Provider [phone] Encounter Details Date Type Department Care Team (Latest Contact Info) Description 08/25/2004 Outpatient [facility] Family Medicine [place] [address] [facility] [address] [place] [address] Thomas Anne MD [address] [address] ACUTE SINUSITIS NOS (Primary Dx); JOINT PAIN-UNSPEC Social History Tobacco Use Types Packs/Day Years Used Date Smoking Tobacco: Never Assessed Comments Unknown Sex and Gender Information Value Date Recorded Sex Assigned at Not on file Legal Sex Female 5:59 AM STONE FABRICATOR Gender Identity Not on file Sexual Orientation Not on file documented as of this encounter Plan of Treatment Not on file documented as of this encounter Visit Diagnoses Diagnosis Acute sinusitis, unspecified- Primary Pain in joint, site unspecified documented in this encounter Care Teams Senior Energy Analyst Relationship Specialty Start Date End Date Charles Delgadillo MD [address] [place] [address] PCP - General Family Practice 09/05/10 documented as of this encounter
--- OUTSIDE RECORDS SUMMARY | 2025-09-22 19:55 | XMS_ITS | Encounter Summary ---
Author Organization [facility] Address [address] [place] [address] Care Team Providers Care Vp Hr Diversity Name Role Phone Charles Delgadillo MD Primary Care Provider [phone] Encounter Details Date Type Department Care Team (Latest Contact Info) Description 08/19/2006 Outpatient Historical [facility] Medicine [place] [address] [phone] Roz Capellan MD [address] [place] [phone] Plantar Fibromatosis (Primary Dx); Insomnia, Unspecified; Unspecified Myalgia and Myositis Social History Tobacco Use Types Packs/Day Years Used Date Smoking Tobacco: Never Assessed Comments Unknown Sex and Gender Information Value Date Recorded Sex Assigned at Not on file Legal Sex Female 5:59 AM 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
--- OUTSIDE RECORDS SUMMARY | 2025-09-22 19:55 | XMS_ITS | Encounter Summary ---
Author Organization [facility] Address [address] [place] [address] Care Team Providers Care Sloop Captain Name Role Phone Charles Delgadillo MD Primary Care Provider [phone] Encounter Details Date Type Department Care Team (Late st Contact Info) Description 12/19/2005 Outpatient Historical [facility] Imaging Services [facility] [place] [address] Social History Tobacco Use Types Packs/Day Years Used Date Smoking Tobacco: Never Assessed Comments Unknown Sex and Gender Information Value Date Recorded Sex Assigned at Not on file Legal Sex Female 5:59 AM EXPLOSIVES MIXER OPERATOR Gender Identity Not on file Sexual Orientation Not on file documented as of this encounter Plan of Treatment Not on file documented as of this encounter Procedures Procedure Name Priority Date/Time Associated Diagnosis Comments MRI THORACIC W WO CONTRAST Routine 12/19/2005 12:01 AM EXPLOSIVES MIXER OPERATOR documented in this encounter Results * MRI THORACIC W WO CONTRAST (12/19/2005 12:01 AM EXPLOSIVES MIXER OPERATOR) Anatomical Region Laterality Modality Spine Other 12/19/2005 12:0 1 AM EXPLOSIVES MIXER OPERATOR Narrative 12/19/2005 12:01 AM EXPLOSIVES MIXER OPERATOR MRI OF THE THORACIC SPINE BEFORE AND [...] a small cavity is present at the [id number] within the central spinal cord. The intradural [...] on filedocumented in this encounter Care Teams Sloop Captain Relationship Specialty Start Date End Date Charles Delgadillo MD [address] [place] [address] PCP - General Family Practice 09/05/10 documented as of this encounter
--- OUTSIDE RECORDS SUMMARY | 2025-09-22 19:55 | XMS_ITS | Encounter Summary ---
Author Organization [facility] Address [address] [place] [address] Care Team Providers Care Jewel Bearing Driller Name Role Phone Charles Delgadillo MD Primary Care Provider [phone] Encounter Details Date Type Department Care Team (Late st Contact Info) Description 04/30/2006 Outpatient Historical [facility] Neurology [address], [address] [place] [address] Tristen Aragon MD [address] [place] [address] Skin Sensation Disturb (Primary Dx); Lumbago Social History Tobacco Use Types Packs/Day Years Used Date Smoking Tobacco: Never Assessed Comments Unknown Sex and Gender Information Value Date Recorded Sex Assigned at Not on file Legal Sex Female 5:59 AM FAN BALANCER Gender Identity Not on file Sexual Orientation Not on file documented as of this encounter Plan of Treatment Not on file documented as of this encounter Visit Diagnoses Diagnosis Skin sensation disturb- Primary Disturbance of skin sensation Lumbago documented in this encounter Care Teams Jewel Bearing Driller Relationship Specialty Start Date End Date Charles Delgadillo MD [address] [address] PCP - General Family Practice 09/05/10 documented as of this encounter
--- OUTSIDE RECORDS SUMMARY | 2025-09-22 19:55 | XMS_ITS | Encounter Summary ---
Author Organization [facility] Address [address] [place] [address] Care Team Providers Care Hardwood Floor Refinisher Name Role Phone Charles Delgadillo MD Primary Care Provider [phone] Encounter Details Date Type Department Care Team (Latest Contact Info) Description 05/28/2006 Outpatient [facility] [address] [phone] Melvin Caro Thoracic or Lumbosacral Neuritis or Radiculitis, Unspecified (Primary Dx) Social History Tobacco Use Types Packs/Day Years Used Date Smoking Tobacco: Never Assessed Comments Unknown Sex and Gender Information Value Date Recorded Sex Assigned at Not on file Legal Sex Female 5:59 AM SHIRRER Gender Identity Not on file Sexual Orientation Not on file documented as of this encounter Plan of Treatment Not on file documented as of this encounter Visit Diagnoses Diagnosis Thoracic or lumbosacral neuritis or radiculitis, unspecified- Primary documented in this encounter Care Teams Hardwood Floor Refinisher Relationship Specialty Start Date End Date Charles Delgadillo MD [address] [place] [address] PCP - General Family Practice 09/05/10 documented as of this encounter
--- OUTSIDE RECORDS SUMMARY | 2025-09-22 19:55 | XMS_ITS | Encounter Summary ---
Author Organization [facility] Address [address] [place] [address] Care Team Providers Care Pointing Machine Operator Name Role Phone Charles Delgadillo MD Primary Care Provider [phone] Encounter Details Date Type Department Care Team (Latest Contact Info) Description 08/08/2005 Outpatient [facility] [address] [place] [address] Miller Bustos DPM NO ADDRESS ON FILE MONONEURITIS LEG NOS (Primary Dx); TARSAL TUNNEL SYNDROME; TENOSYNOVITIS FOOT/ANKLE; LOWER LEG INJURY NOS Social History Tobacco Use Types Packs/Day Years Used Date Smoking Tobacco: Never Assessed Comments Unknown Sex and Gender Information Value Date Recorded Sex Assigned at Not on file Legal Sex Female 5:59 AM HUMIDIFIER OPERATOR Gender Identity Not on file Sexual Orientation Not on file documented as of this encounter Plan of Treatment Not on file documented as of this encounter Visit Diagnoses Diagnosis Mononeuritis of lower limb, unspecified- Primary Tarsal tunnel syndrome Tenosynovitis of foot and ankle Injury, other and unspecified, knee, leg, ankle, and foot documented in this encounter Care Teams Pointing Machine Operator Relationship Specialty Start Date End Date Charles Delgadillo MD [address] [place] [address] [address] PCP - General Family Practice 09/05/10 documented as of this encounter
--- OUTSIDE RECORDS SUMMARY | 2025-09-22 19:55 | XMS_ITS | Encounter Summary ---
Author Organization [employer] [facility] Address [address] [place] [address] Care Team Providers Care Credit Collections Analyst Name Role Phone Charles Delgadillo MD Primary Care Provider [phone] Reason for Referral * Outpatient Services (Routine) - Closed Specialty Diagnoses / Procedures Referred By Tisha troncoso Referred To Contact Diagnoses Other screening mammogram Procedures MAMMO DIGITAL SCREEN BILAT DaisyBill Shanika Zavala FNP [address] [place] [address] Phone: tel: fax: Referral ID Status Reason Start Date Expiration Date Visits Re quested Visits Authorized [id number] Closed 07/13/2014 08/13/2015 1 1 Encounter Details Date Type Department Care Team (Latest Contact Info) Description 07/13/2014 Ancillary Orders [facility] [place] [address] [phone] Shanika Zavala FNP [address] [place] [address] Other screening mammogram (Primary Dx) Social History Tobacco Use Types Packs/Day Years Used Date Smoking Tobacco: Never Smokeless Tobacco: Never Alcohol Use Standard Drinks/Week Comments No 0 (1 standard drink = 0.6 oz pur e alcohol) Comments No Sex and Gender Information Value Date Recorded Sex Assigned at Not on file Legal Sex Female 5:59 AM ROASTERMAN Gender Identity Not on file Sexual Orientation Not on file 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 us Shanika Zavala SLIDE FASTENER CHAIN ASSEMBLER MAMMO ORDERABLES Final Result documented in this encounter Visit Diagnoses Diagnosis Other screening mammogram- Primary Other screening mammogram documented in this encounter Care Teams Credit Collections Analyst Relationship Specialty Start Date End Date Charles Delgadillo MD [address] [place] [address] PCP - General Family Practice 09/05/10 documented as of this encounter
--- OUTSIDE RECORDS SUMMARY | 2025-09-22 19:55 | XMS_ITS | Encounter Summary ---
Author Organization [facility] Address [address] [place] [address] Care Team Providers Care Network Relay Tester Name Role Phone Charles Delgadillo MD Primary Care Provider [phone] Encounter Details Date Type Department Care Team (Latest Contact Info) Description 08/20/2005 Outpatient [facility] Family Medicine [place] 104 [facility] [address] [place] [phone] Thomas Anne MD [address] [address] ROUTINE GARAGEMAN EXAMINATION (Primary Dx); SCREENING MAL NEOP-BREAST NOS Social History Tobacco Use Types Packs/Day Years Used Date Smoking Tobacco: Never Assessed Comments Unknown Sex and Gender Information Value Date Recorded Sex Assigned at Not on file Legal Sex Female 5:59 AM TICKET DISPENSER CHANGER Gender Identity Not on file Sexual Orientation Not on file documented as of this encounter Plan of Treatment Not on file documented as of this encounter Visit Diagnoses Diagnosis Routine gynecological examination- Primary Breast screening, unspecified documented in this encounter Care Teams Network Relay Tester Relationship Specialty Start Date End Date Charles Delgadillo MD [address] [place] [phone] PCP - General Family Practice 09/05/10 documented as of this encounter
--- OUTSIDE RECORDS SUMMARY | 2025-09-22 19:55 | XMS_ITS | Encounter Summary ---
Author Organization [facility] Address [address] [place] [address] Care Team Providers Care Inclusion Special Educator Name Role Phone Charles Delgadillo MD Primary Care Provider [phone] Encounter Details Date Type Department Care Team (Latest Contact Info) Description 05/22/2004 Outpatient Historical [facility] [address] [place] [address] [place] [address] Gamaliel Gracia MD [address] [place] [address] PREOP CARDIOVASC EXAM (Primary Dx) Social History Tobacco Use Types Packs/Day Years Used Date Smoking Tobacco: Never Assessed Comments Unknown Sex and Gender Information Value Date Recorded Sex Assigned at Not on file Legal Sex Female 5:59 AM EMPLOYMENT CONSULTANT Gender Identity Not on file Sexual Orientation Not on file documented as of this encounter Plan of Treatment Not on file documented as of this encounter Visit Diagnoses Diagnosis Pre-operative cardiovascular examination- Primary documented in this encounter Care Teams Inclusion Special Educator Relationship Specialty Start Date End Date Charles Delgadillo MD [address] [place] [address] PCP - General Family Practice 09/05/10 documented as of this encounter
--- OUTSIDE RECORDS SUMMARY | 2025-09-22 19:55 | XMS_ITS | Encounter Summary ---
Author Organization [facility] Address [address] [place] [address] Care Team Providers Care Stemhole Borer Name Role Phone Charles Delgadillo MD Primary Care Provider [phone] Encounter Details Date Type Department Care Team (Latest Contact Info) Description 03/11/2006 Outpatient [facility] Medicine [place] [address] [phone] Lamar Pineda NP NO ADDRESS ON FILE Unspecified Sleep Apnea (Primary Dx); Unspecified Asthma; Unspecified Chronic Bronchitis (CMS/HCC) Social History Tobacco Use Types Packs/Day Years Used Date Smoking Tobacco: Never Assessed Comments Unknown Sex and Gender Information Value Date Recorded Sex Assigned at Not on file Legal Sex Female 5:59 AM COMPANY DANCER Gender Identity Not on file Sexual Orientation Not on file documented as of this encounter Plan of Treatment Not on file documented as of this encounter Visit Diagnoses Diagnosis Unspecified sleep apnea- Primary Unspecified asthma(493.90) Unspecified asthma Unspecified chronic bronchitis (CMS/HCC) Unspecified chronic bronchitis documented in this encounter Care Teams Stemhole Borer Relationship Specialty Start Date End Date Charles Delgadillo MD [address] [place] [address] PCP - General Family Practice 09/05/10 documented as of this encounter
--- OUTSIDE RECORDS SUMMARY | 2025-09-22 19:55 | XMS_ITS | Encounter Summary ---
Author Organization [facility] Address [address] [place] [address] Care Team Providers Care Life Insurance Sales Name Role Phone Charles Delgadillo MD Primary Care Provider [phone] Encounter Details Date Type Department Care Team (Latest Contact Info) Description 08/06/2006 Outpatient Historical [facility] [address] [place] [address] [facility] [address] [place] [address] Nancy Muir FNP [address] [place] [phone] Disorders of Sacrum (Primary Dx) Social History [...] Primary documented in this encounter Care Teams Life Insurance Sales Relationship Specialty Start Date End Date Charles Delgadillo MD [address] [place] [address] PCP - General Family Practice 09/05/10 documented as of this encounter
--- OUTSIDE RECORDS SUMMARY | 2025-09-22 19:55 | XMS_ITS | Encounter Summary ---
Author Organization [facility] Address [address] [place] [address] Care Team Providers Care Retirement Actuary Name Role Phone Charles Delgadillo MD Primary Care Provider [phone] Encounter Details Date Type Department Care Team (Late st Contact Info) Description 07/24/2006 Outpatient Historical [facility] Neurology [address] [facility], [address] [place] [address] Tristen Aragon MD [address] [place] [address] Cervicalgia (Primary Dx) Social History Tobacco Use Types Packs/Day Years Used Date Smoking Tobacco: Never Assessed Comments Unknown Sex and Gender Information Value Date Recorded Sex Assigned at Not on file Legal Sex Female 5:59 AM LIFE GUARD Gender Identity Not on file Sexual Orientation Not on file documented as of this encounter Plan of Treatment Not on file documented as of this encounter Visit Diagnoses Diagnosis Cervicalgia- Primary documented in this encounter Care Teams Retirement Actuary Relationship Specialty Start Date End Date Charles Delgadillo MD [address] [address] PCP - General Family Practice 09/05/10 documented as of this encounter
--- OUTSIDE RECORDS SUMMARY | 2025-09-22 19:55 | XMS_ITS | Encounter Summary ---
Author Organization [facility] Address [address] [place] [address] Care Team Providers Care Pay Agent Name Role Phone Charles Delgadillo MD Primary Care Provider [phone] Encounter Details Date Type Department Care Team (Latest Contact Info) Description 12/06/2003 Outpatient Historical [facility] Orthopedics- [address] [place] [address] [place] [address] Gamaliel Gracia MD [address] [place] [phone] SHOULDER REGION DIS NEC (Primary Dx) Social History Tobacco Use Types Packs/Day Years Used Date Smoking Tobacco: Never Assessed Comments Unknown Sex and Gender Information Value Date Recorded Sex Assigned at Not on file Legal Sex Female 5:59 AM CIRCULATION ASSISTANT Gender Identity Not on file Sexual Orientation Not on file documented as of this encounter Plan of Treatment Not on file documented as of this encounter Visit Diagnoses Diagnosis Other affections of shoulder region, not elsewhere classified- Primary documented in this encounter Care Teams Pay Agent Relationship Specialty Start Date End Date Charles Delgadillo MD [address] [place] [address] PCP - General Family Practice 09/05/10 documented as of this encounter
--- OUTSIDE RECORDS SUMMARY | 2025-09-22 19:55 | XMS_ITS | Encounter Summary ---
Author Organization [facility] Address [address] [place] [address] Care Team Providers Care Stubber Name Role Phone Charles Delgadillo MD Primary Care Provider [phone] Encounter Details Date Type Department Care Team (Late st Contact Info) Description 07/17/2006 Outpatient Historical 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
--- OUTSIDE RECORDS SUMMARY | 2025-09-22 19:55 | XMS_ITS | Encounter Summary ---
Author Organization [facility] Address [address] [place] [address] Care Team Providers Care Ship Joiner Name Role Phone Charles Delgadillo MD Primary Care Provider [phone] Encounter Details Date Type Department Care Team (Latest Contact Info) Description 10/15/2003 Outpatient [facility] Medicine [place] 104 [facility] [address] [place] [address] Thomas Anne MD [address] [address] JOINT PAIN-SHLDER (Primary Dx); ANXIETY STATE NOS; ALLERGY, UNSPECIFIED Social History Tobacco Use Types Packs/Day Years Used Date Smoking Tobacco: Never Assessed Comments Unknown Sex and Gender Information Value Date Recorded Sex Assigned at Not on file Legal Sex Female 5:59 AM SUSTAINABILITY PURCHASING AGENT Gender Identity Not on file Sexual Orientation Not on file documented as of this encounter Plan of Treatment Not on file documented as of this encounter Visit Diagnoses Diagnosis Pain in joint, shoulder region- Primary Anxiety state, unspecified Allergy, unspecified not elsewhere classified documented in this encounter Care Teams Ship Joiner Relationship Specialty Start Date End Date Charles Delgadillo MD [address] [place] [address] [place] [address] PCP - General Family Practice 09/05/10 documented as of this encounter
--- OUTSIDE RECORDS SUMMARY | 2025-09-22 19:55 | XMS_ITS | Encounter Summary ---
Author Organization [facility] Address [address] [place] [address] Care Team Providers Care Registered Nurse Cardiovascular Icu Name Role Phone Charles Delgadillo MD Primary Care Provider [phone] Encounter Details Date Type Department Care Team (Latest Contact Info) Description 05/23/2004 Outpatient Historical [facility] [address] [place] [address] [place] [address] [phone] Gamaliel Gracia MD [address] [place] [address] SHOULDER REGION DIS NEC (Primary Dx) Social History Tobacco Use Types Packs/Day Years Used Date Smoking Tobacco: Never Assessed Comments Unknown Sex and Gender Information Value Date Recorded Sex Assigned at Not on file 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
--- OUTSIDE RECORDS SUMMARY | 2025-09-22 19:55 | XMS_ITS | Encounter Summary ---
Author Organization [facility] Address [address] [place] [address] Care Team Providers Care Cigarette Tester Name Role Phone Charles Delgadillo MD Primary Care Provider [phone] Encounter Details Date Type Department Care Team (Late st Contact Info) Description 12/12/2005 Outpatient Historical [facility] Neurology [address] 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 Gender Identity Not on file Sexual Orientation Not on file documented as of this encounter Plan of Treatment Not on file documented as of this encounter Procedures Procedure Name Priority Date/Time Associated Diagnosis Comments MRI CERVICAL WO CONTRAST Routine 12/12/2005 12:01 AM VOCATIONAL INSTRUCTOR documented in this encounter Results * MRI CERVICAL WO CONTRAST (12/12/2005 12:01 AM VOCATIONAL INSTRUCTOR) Anatomical Region Laterality Modality Spine Other 12/12/2005 12:0 1 AM VOCATIONAL INSTRUCTOR Narrative 12/12/2005 12:01 AM VOCATIONAL INSTRUCTOR MRI CERVICAL SPINE WITHOUT CONTRAST AND BRAIN [...] contrast could be obtained to better evaluate. [facility] 1309 Dictated By: Seth Pepe M.D. Electronically Signed By: Seth Pepe M.D. Date Signed: 12/14/05 [facility] Procedure Note 08/12/2009 MRI CERVICAL [...] contrast could be obtained to better evaluate. [facility] 1309 Dictated By: Seth Pepe M.D. Electronically Signed By: Seth Pepe M.D. Date Signed: 12/14/05 [facility] us Tristen Aragon MD MR ORDERABLES Final Resul t documented in this encounter Visit Diagnoses Diagnosis Cervicalgia- Primary documented in this encounter Care Teams Cigarette Tester Relationship Specialty Start Date End Date Charles Delgadillo MD [address] [place] [address] [place] [address] PCP - General Family Practice 09/05/10 documented as of this encounter
--- OUTSIDE RECORDS SUMMARY | 2025-09-22 19:55 | XMS_ITS | Encounter Summary ---
Author Organization [facility] Address [address] [place] [address] Care Team Providers Care Delivery Professional Name Role Phone Charles Delgadillo MD Primary Care Provider [phone] Encounter Details Date Type Department Care Team (Latest Contact Info) Description 06/29/2003 Outpatient Historical [facility] Family Medicine [address] [phone] Jameel Rodriguez DO NO ADDRESS ON FILE Vaccine for influenza (Primary Dx) Social History Tobacco Use Types Packs/Day Years Used Date Smoking Tobacco: Never Assessed Comments Unknown Sex and Gender Information Value Date Recorded Sex Assigned at Not on file Legal Sex Female 5:59 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
--- OUTSIDE RECORDS SUMMARY | 2025-09-22 19:55 | XMS_ITS | Encounter Summary ---
Author Organization [facility] Address [address] [place] [address] Care Team Providers Care Airline Attendant Name Role Phone Charles Delgadillo MD Primary Care Provider [phone] Encounter Details Date Type Department Care Team (Latest Contact Info) Description 01/21/2006 Outpatient [facility] Medicine [place] 104 [facility] 60 [place] [address] Thomas Anne MD [address] [address] Other and Unspecified Hyperlipidemia (Primary Dx); Osteoarth NOS-Unspec Social History Tobacco Use Types Packs/Day Years Used Date Smoking Tobacco: Never Assessed Comments Unknown Sex and Gender Information Value Date Recorded Sex Assigned at Not on file Legal Sex Female 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
--- OUTSIDE RECORDS SUMMARY | 2025-09-22 19:55 | XMS_ITS | Encounter Summary ---
Author Organization [facility] Address [address] [place] [address] Care Team Providers Care Restaurant Kitchen And Service Manager Name Role Phone Charles Delgadillo MD Primary Care Provider Encounter Details Date Type Department Care Team (Latest Contact Info) Description 03/08/2005 Outpatient Historical [facility] Medicine [address] [phone] Rita Chand MD NO ADDRESS ON FILE URIN TRACT INFECTION NOS (Primary Dx); ALLERGIC RHINITIS NOS Social History Tobacco Use Types Packs/Day Years Used Date Smoking Tobacco: Never Assessed Comments Unknown Sex and Gender Information Value Date Recorded Sex Assigned at Not on file Legal Sex Female 5:59 AM 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
--- OUTSIDE RECORDS SUMMARY | 2025-09-22 19:55 | XMS_ITS | Encounter Summary ---
Author Organization [facility] Address [address] [place] [address] Care Team Providers Care Supplemental Nurse Name Role Phone Charles Delgadillo MD Primary Care Provider [phone] Encounter Details Date Type Department Care Team (Latest Contact Info) Description 07/05/2005 Outpatient [facility] Podiatry-[facility] [place] [address] [place] [address] Miller Bustos DPM NO ADDRESS ON FILE MONONEURITIS LEG NOS (Primary Dx); TENOSYNOVITIS FOOT/ANKLE; ACHILLES TENDINITIS Social History Tobacco Use Types Packs/Day Years Used Date Smoking Tobacco: Never Assessed Comments Unknown Sex and Gender Information Value Date Recorded Sex Assigned at Not on file Legal 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
--- OUTSIDE RECORDS SUMMARY | 2025-09-22 19:55 | XMS_ITS | Encounter Summary ---
Author Organization [facility] Address [address] [place] [address] Care Team Providers Care Records Coordinator Name Role Phone Charles Delgadillo MD Primary Care Provider [phone] Encounter Details Date Type Department Care Team (Latest Contact Info) Description 10/26/2005 Outpatient [facility] Medicine [place] 104 [facility] 60 [place] [address] Thomas Anne MD [address] [phone] BRACHIAL NEURITIS NOS (Primary Dx); HYPERLIPIDEMIA NEC/NOS Social History Tobacco Use Types Packs/Day Years Used Date Smoking Tobacco: Never Assessed Comments Unknown Sex and Gender Information Value Date Recorded Sex Assigned at Not on file Legal Sex Female 5:59 AM CRNP Gender Identity Not on file Sexual Orientation Not on file documented as of this encounter Plan of Treatment Not on file documented as of this encounter Visit Diagnoses Diagnosis Brachial neuritis or radiculitis NOS- Primary Brachial neuritis or radiculitis nos Other and unspecified hyperlipidemia documented in this encounter Care Teams Records Coordinator Relationship Specialty Start Date End Date Charles Delgadillo MD [address] [place] [phone] PCP - General Family Practice 09/05/10 documented as of this encounter
--- OUTSIDE RECORDS SUMMARY | 2025-09-22 19:55 | XMS_ITS | Encounter Summary ---
Author Organization [facility] Address [address] [place] [address] Care Team Providers Care Insole And Outsole Splitter Name Role Phone Charles Delgadillo MD Primary Care Provider Encounter Details Date Type Department Care Team (Late st Contact Info) Description 01/11/2006 Outpatient Historical [facility] Neurology [address] [facility], [address] [place] [address] Tristen Aragon MD [address] [place] [address] Cervicalgia (Primary Dx) Social History Tobacco Use Types Packs/Day Years Used Date Smoking Tobacco: Never Assessed Comments Unknown Sex and Gender Information Value Date Recorded Sex Assigned at Not on file Legal 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
--- OUTSIDE RECORDS SUMMARY | 2025-09-22 19:55 | XMS_ITS | Encounter Summary ---
Author Organization [facility] Address [address] [place] [address] Care Team Providers Care Sales Representative Groceries Name Role Phone Charles Delgadillo MD Primary Care Provider Encounter Details Date Type Department Care Team (Late st Contact Info) Description 12/19/[address] 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
--- OUTSIDE RECORDS SUMMARY | 2025-09-22 19:55 | XMS_ITS | Encounter Summary ---
Author Organization [facility] Address [address] [place] [address] Care Team Providers Care Counter Waiter Name Role Phone Charles Delgadillo MD Primary Care Provider [phone] Encounter Details Date Type Department Care Team (Latest Contact Info) Description 08/27/2006 Outpatient Historical [facility] [address] [place] [phone] Melvin Caro Disorders of Sacrum (Primary Dx); Thoracic or Lumbosacral Neuritis or Radiculitis, Unspecified Social History Tobacco Use Types Packs/Day Years Used Date Smoking Tobacco: Never Assessed Comments Unknown Sex and Gender Information Value Date Recorded Sex Assigned at Not on file Legal 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
--- OUTSIDE RECORDS SUMMARY | 2025-09-22 19:55 | XMS_ITS | Encounter Summary ---
Author Organization [facility] Address [address] [place] [address] Care Team Providers Care Fan Runner Name Role Phone Charles Delgadillo MD Primary Care Provider [phone] Encounter Details Date Type Department Care Team (Latest Contact Info) Description 01/24/2004 Outpatient [facility] Family Medicine [place] [address] 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
--- OUTSIDE RECORDS SUMMARY | 2025-09-22 19:55 | XMS_ITS | Encounter Summary ---
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 [facility] 1138 Dictated By: Jaime Fernandez Electronically Signed By: Jaime Fernandez Electronically Signed By: Olu Chiu M.D. Date Signed: 01/09/06 [facility] Procedure Note Provider, Historical - 08/10/2009 FLUOROSCOPIC [...] comfortable condition having tolerated the procedure well. [facility] 1138 Dictated By: Jaime Fernandez Electronically Signed By: Jaime Fernandez Electronically Signed By: Olu Chiu M.D. Date Signed: 01/09/06 [facility] us Tristen Aragon MD CT ORDERABLES Final Resul t Performing Organization Address City/State/[facility] Co de Phone Number INTERFACE [...] Primary documented in this encounter Care Teams Drum Drier Operator Relationship Specialty Start Date End Date Charles Delgadillo MD [address] [place] [address] PCP - General Family Practice 09/05/10 documented as of this encounter
--- OUTSIDE RECORDS SUMMARY | 2025-09-22 19:55 | XMS_ITS | Encounter Summary ---
Author Organization [facility] Address [address] [place] [address] Care Team Providers Care Loft Worker Name Role Phone Charles Delgadillo MD Primary Care Provider [phone] Encounter Details Date Type Department Care Team (Latest Contact Info) Description 05/28/2006 Outpatient Historical [facility] [address] [place] [phone] Melvin Caro Thoracic or Lumbosacral Neuritis or Radiculitis, Unspecified (Primary Dx) Social History Tobacco Use Types Packs/Day Years Used Date Smoking Tobacco: Never Assessed Comments Unknown Sex and Gender Information Value Date Recorded Sex Assigned at Not on file Legal Sex Female 5:59 AM PAYMENT POSTER Gender Identity Not on file Sexual Orientation Not on file documented as of this encounter Plan of Treatment Not on file documented as of this encounter Visit Diagnoses Diagnosis Thoracic or lumbosacral neuritis or radiculitis, unspecified- Primary documented in this encounter Care Teams Loft Worker Relationship Specialty Start Date End Date Charles Delgadillo MD [address] [place] [address] PCP - General Family Practice 09/05/10 documented as of this encounter
--- OUTSIDE RECORDS SUMMARY | 2025-09-22 19:55 | XMS_ITS | Encounter Summary ---
Author Organization [facility] Address [address] [place] [address] Care Team Providers Care Cert Occupational Therapy Asst Name Role Phone Charles Delgadillo MD Primary Care Provider [phone] Encounter Details Date Type Department Care Team (Latest Contact Info) Description 05/22/2004 Outpatient [facility] Podiatry[facility] [place] [address] [place] [address] Miller Bustos DPM NO ADDRESS ON FILE LOWER LEG INJURY NOS (Primary Dx); MONONEURITIS LEG NOS; Pain in limb; TARSAL TUNNEL SYNDROME Social History Tobacco Use Types Packs/Day Years Used Date Smoking Tobacco: Never Assessed Comments Unknown Sex and Gender Information Value Date Recorded Sex Assigned at Not on file Legal Sex Female 5:59 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
--- OUTSIDE RECORDS SUMMARY | 2025-09-22 19:55 | XMS_ITS | Encounter Summary ---
Author Organization [facility] Address [address] [place] [address] Care Team Providers Care Shake Splitter Name Role Phone Charles Delgadillo MD Primary Care Provider [phone] Encounter Details Date Type Department Care Team (Latest Contact Info) Description 05/04/2005 Outpatient Historical [facility] Family Medicine- [facility] [address] [place] [phone] Lamar Pineda NP NO ADDRESS ON FILE LOWER LEG INJURY NOS (Primary Dx); CALCANEAL SPUR Social History Tobacco Use Types Packs/Day Years Used Date Smoking Tobacco: Never Assessed Comments Unknown Sex and Gender Information Value Date Recorded Sex Assigned at Not on file Legal Sex Female 5:59 AM ATHLETIC TRAINER Gender Identity Not on file Sexual Orientation Not on file documented as of this encounter Plan of Treatment Not on file documented as of this encounter Visit Diagnoses Diagnosis Injury, other and unspecified, knee, leg, ankle, and foot- Primary Calcaneal spur documented in this encounter Care Teams Shake Splitter Relationship Specialty Start Date End Date Charles Delgadillo MD [address] [place] [address] PCP - General Family Practice 09/05/10 documented as of this encounter
--- OUTSIDE RECORDS SUMMARY | 2025-09-22 19:55 | XMS_ITS | Encounter Summary ---
Author Organization [facility] Address [address] [place] [address] Care Team Providers Care Food Broker Name Role Phone Charles Delgadillo MD Primary Care Provider [phone] Encounter Details Date Type Department Care Team (Latest Contact Info) Description 11/09/2005 Outpatient [facility] Medicine [place] [address] [facility] [address] [place] [address] Thomas Anne MD [address] [address] MONONEURITIS NOS (Primary Dx); HYPOTHYROIDISM NOS; SWELLING IN HEAD & NECK Social History Tobacco Use Types Packs/Day Years Used Date Smoking Tobacco: Never Assessed Comments Unknown Sex and Gender Information Value Date Recorded Sex Assigned at Not on file Legal Sex Female 5:59 AM 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
--- OUTSIDE RECORDS SUMMARY | 2025-09-22 19:56 | XMS_ITS | Encounter Summary ---
Author Organization [employer] [facility] Address [address] [place] [address] Care Team Providers Care Local Operator Name Role Phone Charles Delgadillo MD Primary Care Provider [phone] Reason for Referral * Outpatient Services (Routine) - Closed Specialty Diagnoses / Procedures Referred By Tisha troncoso Referred To Contact Diagnoses Encounter for screening mammogram for breast cancer Procedures MAMMO DIGITAL SCREEN BILAT [facility] Shanika Zavala FNP [address] [place] [address] Phone: tel: fax: Referral ID Status Reason Start Date Expiration Date Visits Re quested Visits Authorized [id number] Closed 08/01/2015 08/31/2016 1 1 CREW MEMBER Encounter Details Date Type Department Care Team (Latest Contact Info) Description 08/01/2015 Ancillary Orders [facility] [place] [address] [address] Shanika Zavala FNP [address] [place] [address] Encounter for screening mammogram for breast cancer (Primary Dx) Social History Tobacco Use Types Packs/Day Years Used Date Smoking Tobacco: Never Smokeless Tobacco: Never Alcohol Use Standard Drinks/Week Comments No 0 (1 standard drink = 0.6 oz pur e alcohol) Comments No Sex and Gender Information Value Date Recorded Sex Assigned at Not on file Legal Sex Female 5:[address] CREW MEMBER Gender Identity Not on file Sexual [...] DIGITAL SCREEN BILAT MOBILE (08/16/2015 1:[address] CREW MEMBER) Anatomical Region Laterality Modality Breast Bilateral Mammography Narrative 08/17/2015 7:[address] CREW MEMBER Bilateral Mammogram Reason for Exam: Screening Comparison: [...] findings since the prior mammogram(s). Shanika Zavala INSTRUCTIONAL LEADER MAMMO ORDERABLES Final Result documented in this encounter Visit Diagnoses Diagnosis Encounter for screening mammogram for breast cancer- Primary Encounter for screening mammogram for breast cancer documented in this encounter Care Teams Local Operator Relationship Specialty Start Date End Date Charles Delgadillo MD [address] [place] [address] PCP - General Family Practice 09/05/10 documented as of this encounter
--- OUTSIDE RECORDS SUMMARY | 2025-09-22 19:56 | XMS_ITS | Encounter Summary ---
Author Organization [facility] Address [address] [place] [address] Care Team Providers Care Hadoop Software Engineer Name Role Phone Charles Delgadillo MD Primary Care Provider [phone] Encounter Details Date Type Department Care Team (Latest Contact Info) Description 12/11/2006 Outpatient Historical [facility] General and Trauma Surgery-[address] [place] [address] Adeel Jenkins S, DO [address] [place] [address] Unspecified Backache (Primary Dx) Social History Tobacco Use Types Packs/Day Years Used Date Smoking Tobacco: Never Assessed Comments Unknown Sex and Gender Information Value Date Recorded Sex Assigned at Not on file Legal 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
--- OUTSIDE RECORDS SUMMARY | 2025-09-22 19:56 | XMS_ITS | Encounter Summary ---
Author Organization [facility] Address [address] [place] [address] Care Team Providers Care Artists' Model Name Role Phone Charles Delgadillo MD Primary Care Provider [phone] Encounter Details Date Type Department Care Team (Latest Contact Info) Description 11/28/2006 Outpatient [facility] [address] [place] [address] [place] [address] [phone] Melvin Caro Thoracic or Lumbosacral Neuritis or Radiculitis, Unspecified (Primary Dx) Social History Tobacco Use Types Packs/Day Years Used Date Smoking Tobacco: Never Assessed Comments Unknown Sex and Gender Information Value Date Recorded Sex Assigned at Not on file Legal Sex Female 5:59 AM FLOW NURSE Gender Identity Not on file Sexual Orientation Not on file documented as of this encounter Plan of Treatment Not on file documented as of this encounter Visit Diagnoses Diagnosis Thoracic or lumbosacral neuritis or radiculitis, unspecified- Primary documented in this encounter Care Teams Artists' Model Relationship Specialty Start Date End Date Charles Delgadillo MD [address] [place] [address] PCP - General Family Practice 09/05/10 documented as of this encounter
--- OUTSIDE RECORDS SUMMARY | 2025-09-22 19:56 | XMS_ITS | Encounter Summary ---
Author Organization [facility] Address [address] [place] [address] Care Team Providers Care Marketing Budget Analyst Name Role Phone Charles Delgadillo MD Primary Care Provider Encounter Details Date Type Department Care Team (Latest Contact Info) Description 11/20/2006 Outpatient [facility] [address] [place] [address] [place] [address] [address] Antonio Lopez MD [address] [place] [address] Disorders of Sacrum (Primary Dx) Social History Tobacco Use Types Packs/Day Years Used Date Smoking Tobacco: Never Assessed Comments Unknown Sex and Gender Information Value Date Recorded Sex Assigned at Not on file Legal Sex Female 5:59 AM RED LEAD BURNER Gender Identity Not on file Sexual Orientation Not on file documented as of this encounter Plan of Treatment Not on file documented as of this encounter Visit Diagnoses Diagnosis Disorders of sacrum- Primary documented in this encounter Care Teams Marketing Budget Analyst Relationship Specialty Start Date End Date Charles Delgadillo MD [address], [place] [address] PCP - General Family Practice 09/05/10 documented as of this encounter
--- OUTSIDE RECORDS SUMMARY | 2025-09-22 19:56 | XMS_ITS | Encounter Summary ---
Author Organization [facility] Address [address] [place] [address] Care Team Providers Care Orthopedic Physician Name Role Phone Charles Delgadillo MD Primary Care Provider [phone] Encounter Details Date Type Department Care Team (Latest Contact Info) Description 11/20/2006 Outpatient Historical [facility] [address] [place] [address] Antonio Lopez MD [address] [place] [address] Unspecified Backache (Primary Dx); Lumbosacral Spondylosis; Degeneration of Lumbar or Lumbosacral Intervertebral Disc Social History Tobacco Use Types Packs/Day Years Used Date Smoking Tobacco: Never Assessed Comments Unknown Sex and Gender Information Value Date Recorded Sex Assigned at Not on file Legal Sex Female 5:59 AM CLOTH MENDER Gender Identity Not on file Sexual Orientation Not on file documented as of this encounter Plan of Treatment Not on file documented as of this encounter Visit Diagnoses Diagnosis Backache, unspecified- Primary Lumbosacral spondylosis Lumbosacral spondylosis without myelopathy Degeneration of lumbar or lumbosacral intervertebral disc documented in this encounter Care Teams Orthopedic Physician Relationship Specialty Start Date End Date Charles Delgadillo MD [address] [place] [phone] PCP - General Family Practice 09/05/10 documented as of this encounter
--- OUTSIDE RECORDS SUMMARY | 2025-09-22 19:56 | XMS_ITS | Encounter Summary ---
Author Organization [facility] Address [address] [place] [address] Care Team Providers Care Retail And Restaurant Name Role Phone Charles Delgadillo MD Primary Care Provider [phone] Encounter Details Date Type Department Care Team (Latest Contact Info) Description 10/16/2006 Outpatient [facility]iat[facility] [address] [place] [address] Miller Bustos, DPM NO ADDRESS ON FILE Tenosynovitis of Foot and Ankle (Primary Dx); Dermatophytosis of Nail; Plantar Fibromatosis Social History Tobacco Use Types Packs/Day Years Used Date Smoking Tobacco: Never Assessed Comments Unknown Sex and Gender Information Value Date Recorded Sex Assigned at Not on file Legal Sex Female 5:59 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
--- OUTSIDE RECORDS SUMMARY | 2025-09-22 19:56 | XMS_ITS | Encounter Summary ---
Author Organization [employer] [facility] Address [address] [place] [address] Care Team Providers Care Vp Packaging Name Role Phone Charles Delgadillo MD Primary Care Provider [phone] Encounter Details Date Type Department Care Team (Latest Contact Info) Description 11/01/2006 Outpatient Historical [facility] Pain Management Procedures [address] 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
--- OUTSIDE RECORDS SUMMARY | 2025-09-22 19:56 | XMS_ITS | Encounter Summary ---
Author Organization [facility] Address [address] [place] [address] Care Team Providers Care Chairman & Chief Executive Officer Name Role Phone Charles Delgadillo MD Primary Care Provider [phone] Encounter Details Date Type Department Care Team (Latest Contact Info) Description 11/01/2006 Outpatient Historical [facility] [address] [place] [address] Melvin Caro Disorders of Sacrum (Primary Dx); Thoracic or Lumbosacral Neuritis or Radiculitis, Unspecified Social History Tobacco Use Types Packs/Day Years Used Date Smoking Tobacco: Never Assessed Comments Unknown Sex and Gender Information Value Date Recorded Sex Assigned at Not on file Legal 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
--- OUTSIDE RECORDS SUMMARY | 2025-09-22 19:56 | XMS_ITS | Encounter Summary ---
Author Organization [facility] Address [address] [place] [address] Care Team Providers Care Regional Engagement Consultant Name Role Phone Charles Delgadillo MD Primary Care Provider [phone] Encounter Details Date Type Department Care Team (Latest Contact Info) Description 12/06/2006 Outpatient Historical [facility] [address] [place] [address] [place] [address] Antonio Lopez MD [address] [place] [address] Pre-Operative Cardiovascular Examination (Primary Dx) Social History Tobacco Use Types Packs/Day Years Used Date Smoking Tobacco: Never Assessed Comments Unknown Sex and Gender Information Value Date Recorded Sex Assigned at Not on file Legal Sex Female 5:59 AM LADLER Gender Identity Not on file Sexual Orientation [...] Primary documented in this encounter Care Teams Regional Engagement Consultant Relationship Specialty Start Date End Date Charles Delgadillo MD [address], [place] [address] PCP - General Family Practice 09/05/10 documented as of this encounter
--- OUTSIDE RECORDS SUMMARY | 2025-09-22 19:56 | XMS_ITS | Encounter Summary ---
Author Organization [facility] Address [address] [place] [address] Care Team Providers Care Orthopedics Pediatric Physician Name Role Phone Charles Delgadillo MD Primary Care Provider [phone] Encounter Details Date Type Department Care Team (Latest Contact Info) Description 12/05/2006 Outpatient Historical [facility] [address] [place] [address] Roz Capellan MD [address] [place] [phone] Allergy, Unspecified not Elsewhere Classified (Primary Dx); Cervicalgia; Unspecified Backache Social History Tobacco Use Types Packs/Day Years Used Date Smoking Tobacco: Never Assessed Comments Unknown Sex and Gender Information Value Date Recorded Sex Assigned at Not on file Legal Sex Female 5:59 AM DISPATCHER TOW TRUCK Gender Identity Not on file Sexual Orientation Not on file documented as of this encounter Plan of Treatment Not on file documented as of this encounter Visit Diagnoses Diagnosis Allergy, unspecified not elsewhere classified- Primary Cervicalgia Backache, unspecified documented in this encounter Care Teams Orthopedics Pediatric Physician Relationship Specialty Start Date End Date Charles Delgadillo MD [address] [place] [address] PCP - General Family Practice 09/05/10 documented as of this encounter
--- OUTSIDE RECORDS SUMMARY | 2025-09-22 19:56 | XMS_ITS | Encounter Summary ---
Author Organization [facility] Address [address] [place] [address] Care Team Providers Care Hotel Clerk Name Role Phone Charles Delgadillo MD Primary Care Provider [phone] Encounter Details Date Type Department Care Team (Latest Contact Info) Description 10/30/2006 Outpatient [facility] [address] [place] [address] [place] [address] [phone] Melvin Caro Disorders of Sacrum (Primary Dx) Social History Tobacco Use Types Packs/Day Years Used Date Smoking Tobacco: Never Assessed Comments Unknown Sex and Gender Information Value Date Recorded Sex Assigned at Not on file Legal Sex Female 5:59 AM MOTOR TESTER Gender Identity Not on file Sexual Orientation Not on file documented as of this encounter Plan of Treatment Not on file documented as of this encounter Visit Diagnoses Diagnosis Disorders of sacrum- Primary documented in this encounter Care Teams Hotel Clerk Relationship Specialty Start Date End Date Charles Delgadillo MD [address] [place] [address] PCP - General Family Practice 09/05/10 documented as of this encounter
--- OUTSIDE RECORDS SUMMARY | 2025-09-22 19:56 | XMS_ITS | Encounter Summary ---
Author Organization [employer] [facility] [facility] Address [address] [place] [address] Care Team Providers Care Manager Fashion Name Role Phone Charles Delgadillo MD Primary Care Provider [phone] Encounter Details Date Type Department Care Team (Latest Contact Info) Description 11/22/2006 Outpatient Historical [facility] Pain Management Procedures [address] 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
--- OUTSIDE RECORDS SUMMARY | 2025-09-22 19:56 | XMS_ITS | Encounter Summary ---
Author Organization [facility] Address [address] [place] [address] Care Team Providers Care Crna Name Role Phone Charles Delgadillo MD Primary Care Provider [phone] Encounter Details Date Type Department Care Team (Latest Contact Info) Description 11/28/2006 Outpatient Historical [facility] [address] [place] [address] Melvin Caro Degeneration of Lumbar or Lumbosacral Intervertebral Disc (Primary Dx); Thoracic or Lumbosacral Neuritis or Radiculitis, Unspecified Social History Tobacco Use Types Packs/Day Years Used Date Smoking Tobacco: Never Assessed Comments Unknown Sex and Gender Information Value Date Recorded Sex Assigned at Not on file Legal Sex Female 5:59 AM CATERPILLAR DRIVER Gender Identity Not on file Sexual Orientation Not on file documented as of this encounter Plan of Treatment Not on file documented as of this encounter Visit Diagnoses Diagnosis Degeneration of lumbar or lumbosacral intervertebral disc- Primary Thoracic or lumbosacral neuritis or radiculitis, unspecified documented in this encounter Care Teams Crna Relationship Specialty Start Date End Date Charles Delgadillo MD [address] [place] [address] PCP - General Family Practice 09/05/10 documented as of this encounter
--- OUTSIDE RECORDS SUMMARY | 2025-09-22 19:56 | XMS_ITS | Encounter Summary ---
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
--- OUTSIDE RECORDS SUMMARY | 2025-09-22 19:56 | XMS_ITS | Encounter Summary ---
Author Organization [facility] Address [address] [place] [address] Care Team Providers Care Associate Media Director Name Role Phone Charles Delgadillo MD Primary Care Provider [phone] Encounter Details Date Type Department Care Team (Latest Contact Info) Description 12/04/2006 Outpatient [facility] [address] [place] [address] [place] [address] [address] Antonio Lopez MD [address] [address] Lumbago (Primary Dx) Social History Tobacco Use Types Packs/Day Years Used Date Smoking Tobacco: Never Assessed Comments Unknown Sex and Gender Information Value Date Recorded Sex Assigned at Not on file Legal Sex Female 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
--- OUTSIDE RECORDS SUMMARY | 2025-09-22 19:56 | XMS_ITS | Clinical Summary ---
Author Organization [facility] Address [address] [place] [place] [address] Care Team Providers Care Orthodontic Technician Assistant Name Role Phone Charles Delgadillo MD Primary Care Provider Allergies Active Allergy Reactions Criticality Noted Date [...] unspecified whether stage 3a or 3b CKD (CMS/[facility]) For bid testing daily and prn symptoms [...] unspecified whether stage 3a or 3b CKD (CMS/[facility]) For bid glucose checks and prn. 200 Each 3 02/04/20 21 Active fluticasone propionate (FLONASE) 50 mcg/spray [place], Suspension nasal inhaler Use 2 spray(s) in [...] 09 Overview (12/19/2008): See colonoscopy report from [facility] this month Fibromyalgia 09/19/2008 Mixed hyperlipidemia [...] 09/19/2008 Immunizations Immunization Administration Dates Next Due ([facility])(12 YR UP) COVID-19 VACCINE - EMERGENCY USE AUTHORIZATION, MRNA, [id number](PF) 30 MCG/0.3 ML IM SUSP 02/01/2021,01/11/2021 (PNEUMOVAX [...] Steven murdered Other Brother 2 Paul guillian [place] [facility] Disease Daughter 1 Amirah Other Daughter [...] often do you attend chur ch or zoroastrianism services? 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 Not on file [...] - 1-dose 75+ series) 02/10/2024 [place]) Preventative Visit/Annual Wellness Visit 09/23/2024 09/20/2020, 09/24/2018, [...] years Discontinued Medical Devices Implanted Type Area Dressing Room Porter Device Identifier Shelf Expiration Date Model / Serial / Lot Log 1458 - Mesh Ethicon Hernia - 1 - Barrier Seprafilm [id number] Implanted:Qty: 1 on 10/07/2008 at [facility] Adhesion Barrier N/A: Abdomen GENZYME- BIOSURG 4301-02 / / [id number] Cement Simplex Hvisc 6194-1-010 - [id number] Implanted:Qty: 1 on 07/02/2017 by Alex Phillips MD at [facility] Cement Left: Knee GENEVIEVE- HOWMEDICA INT INC 12/21/2018 6194-1-010 / / [id number] Lens Io Bi-Aspheric Softechd+16.0 - [id number] Implanted:Qty: 1 on 12/22/2020 by Jeremias Banerjee MD at [facility] Eye Left: Eye LENSTEC INC 07/11/2022 SOFTECHD+16 .0 / [id number] / Lens Io Tecnis 15.0 [id number] - [id number] Implanted:Qty: 1 on 01/13/2021 by Jeremias Banerjee MD at [facility] Eye Right: Eye CRUZ MED OPTICS-J&J VISION 11/04/2024 [id number] / [id number] / Cup Pinn Sctr Series 52mm 1217-22-052 - [id number] Implanted:Qty: 1 on 07/11/2016 by Paco Joe MD at [facility] Hip Right: Hip J&J- DEPUY ORTHOPAEDICS INC 04/22/2026 [id number] / / [id number] Stem Fem Kidder Por Sz5 1570-01-110 - [id number] Implanted:Qty: 1 on 07/11/2016 by Paco Joe MD at [facility] Hip Right: Hip J&J- DEPUY ORTHOPAED[employer] INC 04/22/2026 1570--110 / / [id number] Liner Pinn Altrx Poly 1221-36-052 - [id number] Implanted:Qty: 1 on 07/11/2016 by Paco Joe MD at [facility] Hip Right: Hip J&J- DEPUY ORTHOPAED[employer] INC 05/23/2021 [id number] / / [id number] Head Fem Art/Tereso M-Spec 1365-52-000 - [id number] Implanted:Qty: 1 on 07/11/2016 by Paco Joe MD at [facility] Hip Right: Hip J&J- DEPUY ORTHOPAED[employer] INC 01/20/2021 1365-52-000 / / [id number] Comp Fem Gnsii Ps Cnstr Sz3 1661-8497 - [id number] Implanted:Qty: 1 on 07/02/2017 by Alex Phillips MD at [facility] Knee Left: Knee RICO NEPHEW ORTHO 01/07/2027 [id number] / / [id number] Comp Tib Gnsii Census Taker Sz2 Lt 7500-1343 - [id number] Implanted:Qty: 1 on 07/02/2017 by Alex Phillips MD at [facility] Knee Left: Knee RICO NEPHEW ORTHO 05/13/2025 [id number] / / [id number] Insert Lgn Ps Xlpe Sz 1 2 11mm [id number] - [id number] Implanted:Qty: 1 on 07/02/2017 by Alex Phillips MD at [facility] Knee Left: Knee RICO NEPHEW ORTHO 07/30/2026 [id number] / / [id number] Patella Gnsii Biconvex 23mm 1702-0780 - [id number] Implanted:Qty: 1 on 07/02/2017 by Alex Phillips MD at [facility] Knee Left: Knee RICO NEPHEW ORTHO 03/20/2027 [id number] / / [id number] Log 1458 - Mesh Ethicon Hernia - 1 - Mesh Proceed [id number] Implanted:Qty: 1 on 10/07/2008 at [facility] Mesh N/A: Abdomen J&J- ETHICON INC 11/21/2009 PCDH1 / / [id number] Screw [address] St Loc 4.5x26mm Ady444 - [id number] Implanted:Qty: 1 on 11/13/2016 by Alex Phillips MD at [facility] Screw Left: Shoulder TORNIER INC 11/20/2016 JTJ699 / / [id number] Screw Aequalis St Loc 4.5x26mm Ujd017 - [id number] Implanted:Qty: 1 on 11/13/2016 by Alex Phillips MD at [facility] Screw Left: Shoulder TORNIER INC 11/20/2016 FYW622 / / [id number] Ins Ascnd Flx Rvrs 36mm Oeh064x - [id number] Implanted:Qty: 1 on 11/13/2016 by Alex Phillips MD at [facility] Shoulder Left: Shoulder TORNIER INC 10/02/2021 [id number] / / [id number] Stem Hum Ascnd Flx Ptc Std Sz2b Nlj814y - [id number] Implanted:Qty: 1 on 11/13/2016 by Alex Phillips MD at [facility] Shoulder Left: Shoulder TORNIER INC 07/24/2021 [id number] / / [id number] Glenoid Sphere Aequalis Rvrs Ii Orv605 - [id number] Implanted:Qty: 1 on 11/13/2016 by Alex Phillips MD at [facility] Shoulder Left: Shoulder TORNIER INC 09/18/2021 INM469 / / [id number] Tray Hum Ascnd Flx Ecc Rev Reu618 - [id number] Implanted:Qty: 1 on 11/13/2016 by Alex Phillips MD at [facility] Shoulder Left: Shoulder TORNIER INC 09/28/2021 YJE549 / / [id number] Baseplate Aequalis Rvrsii Qqu453 - [id number] Implanted:Qty: 1 on 11/13/2016 by Alex Phillips MD at [facility] Shoulder Left: Shoulder TORNIER INC 10/10/2021 WIY184 / / [id number] Procedures Procedure Name Priority Date/Time Associated Diagnosis Comments HEMOGLOBIN A1C Routine 02/13/2021 10:59 AM CDT Type 2 diabetes mellitus with stage 3 chronic kidney disease, without long-term current use of insulin, unspecified whether stage 3a or 3b CKD ([facility]/HCC) HM DIABETES EYE EXAM Routine 09/08/2019 MICROALBUMIN/CREATI NINE RATIO, RANDOM UR Routine 09/04/2019 9:00 AM GAME SHOW HOST Type 2 diabetes mellitus with stage 3 chronic kidney disease, without long-term current use of insulin ([facility]/HCC) LIPID PANEL Routine 09/04/2019 9:00 AM GAME SHOW HOST Type 2 diabetes mellitus with stage 3 chronic kidney disease, without long-term current use of insulin ([facility]) Essential hypertension ENDOSCOPY, COLON, SCREENING Routine 10/28/2014 3:04 PM GAME SHOW HOST Screening for colon cancer XR DEXA BONE DENSITY AXIAL 1 OR MORE SITES Routine 10/23/2013 Osteopenia POC OCCULT BLOOD UP TO 3 CARDS Routine 04/17/2011 9:08 AM CDT Screening for colon cancer from Last 3 Months or Most Recently Relevant to Health Maintenance Results * (ABNORMAL) HEMOGLOBIN A1C (02/13/2021 10:59 AM CDT) HEMOGLOBIN A1C 7.2(H) See Comment % 02/14/2021 10:01 AM CDT [facility] EST. AVG GLUCOSE, A1C 160 mg/dL 02/14/2021 10:01 AM CDT [facility] Blood Venipuncture / Unknown 02/13/2021 10:59 AM CDT 02/13/2021 8:36 PM CDT Narrative [facility] - 02/14/2021 10:01 AM CDT HGB A1C INTERPRETATION NORMAL: <5.7% PRE-DIABETES: 5.7 - 6.4% DIABETES: 6.5% OR GREATER Falsely low A1C measurements can occur when: 1. Anemia and/or hemolytic anemia is present. 2. Hemoglobin variants present. 3. Renal failure. 4. Transfusion of blood product in the last 120 days. We recommend ordering a fructosamine test(PJC1466) to more accurately assess glycemic status if any of the above conditions are present. Shanika Zavala EQUIPMENT OPERATION INSTRUCTOR CHEMISTRY ORDERABLES Final Re sult [facility] CLIA# [id number] [facility] [place] [address] * DIABETES EYE EXAM (09/08/2019) us Abstract Spg Provider HEALTH MAINTENANCE Final R esult * MICROALBUMIN/CREATININE RATIO, RANDOM UR (09/04/2019 9:00 AM GAME SHOW HOST) MICROALBUMIN, URINE 1.4 No Reference Range mg/dL 09/04/2019 8:51 PM GAME SHOW HOST [facility] CREATININE, URINE 95.5 29.0 - 226.0 mg/dL 09/04/2019 8:51 PM GAME SHOW HOST [facility] Comment:Reference Range vari es with fluid intake and diet. MICROALBUMIN/C REAT RATIO, UR 14.7 <25.0 mg/g 09/04/2019 8:[address] [facility] Urine URINE SPECIMEN OBTAINED BY CLEAN CATCH PROCEDURE / Unknown Collection / Unknown 09/04/2019 9:00 AM GAME SHOW HOST 09/04/2019 7:32 PM GAME SHOW HOST Narrative [facility] - 09/04/2019 8:51 PM GAME SHOW HOST Condition Microalbumin/Creat ratio Normal Males <17 Normal Females <25 Microalbuminuria Males 17-299 Microalbuminuria Females 25-299 Overt proteinuria >=300 Shanika Zavala EQUIPMENT OPERATION INSTRUCTOR URINE ORDERABLES Final Result [facility] CLIA# [id number] [address] [place] [address] * (ABNORMAL) LIPID PANEL (09/04/2019 9:00 AM GAME SHOW HOST) CHOLESTEROL 250(H) <200 mg/dL 09/04/2019 8:[address] [facility] TRIGLYCERIDE 168(H) <150 mg/dL 09/04/2019 8:[address] [facility] HDL 53 40 - 59 mg/dL 09/04/2019 8:[address] [facility] LDL CALCULATED 163(H) <100 mg/dL 09/04/2019 8:[address] [facility] NON-HDL CHOLESTEROL 197(H) <130 mg/dL 09/04/2019 8:[address] [facility] Blood Venipuncture / Unknown 09/04/2019 9:00 AM GAME SHOW HOST 09/04/2019 7:34 PM GAME SHOW HOST Narrative [facility] - 09/04/2019 8:20 PM GAME SHOW HOST TOTAL CHOLESTEROL mg/dL Desirable <200 Borderline high [...] Ranges for Lipid Panels (NCEP/AMA) Shanika Zavala EQUIPMENT OPERATION INSTRUCTOR CHEMISTRY ORDERABLES Final Re sult Performing Organization Address City/[facility] Co de Phone Number [facility]# [id number] [facility] [place] [address] * XR DEXA BONE DENSITY AXIAL 1 OR MORE SITES (10/23/2013) Anatomical Region Laterality Modality Other Shanika BAPTISTEP DIAGNOSTIC IMAGING ORDERABLES Final Result * POC OCCULT BLOOD UP TO 3 CARDS (04/17/2011 9:08 AM CDT) OCCULT BLOOD #1 Negative Negative OCCULT BLOOD #2 Negative Negative OCCULT BLOOD #3 Negative Negative Stool specimen (specimen) Shanika Zavala EQUIPMENT OPERATION INSTRUCTOR POINT OF CARE TESTING Final R esult * [place] COLONOSCOPY,DIAGNOSTIC (12/13/2008) London Cooper DO [place] - DIGESTIVE SYSTEM SERVICE S Final Result Performing Organization Address City/State/[facility] Co de Phone Number [facility] from Last 3 Months or Most Recently Relevant to Health Maintenance Insurance [facility] RX [facility] Medicare Part D RX [employer] (INTERNAL) [facility] Internal Plans Advance Directives For more information, please contact: [phone] Documents on File Type Date Recorded Patient Steam Turbine Assembler Expl anation Advance Directive POA 03/01/2015 1:21 [...] 12:53 PM 11/14/2016 1:13 PM Care Teams Orthodontic Technician Assistant Relationship Specialty Start Date End Date Charles Delgadillo MD [address] [place] [address] PCP - General Family Practice 09/05/10
--- OUTSIDE RECORDS SUMMARY | 2025-09-22 19:56 | XMS_ITS | Encounter Summary ---
Author Organization [facility] Address [address] [place] [address] Care Team Providers Care Superintendent Schools Name Role Phone Charles Delgadillo MD Primary Care Provider [phone] Encounter Details Date Type Department Care Team (Latest Contact Info) Description 08/09/2006 Outpatient Historical [facility] Pain Management Procedures [address] [place] [address] Melvin Caro Thoracic or Lumbosacral Neuritis or Radiculitis, Unspecified (Primary Dx) Social History Tobacco Use Types Packs/Day Years Used Date Smoking Tobacco: Never Assessed Comments Unknown Sex and Gender Information Value Date Recorded Sex Assigned at Not on file Legal Sex Female 5:59 AM VENEER MEASURER Gender Identity Not on file Sexual Orientation Not on file documented as of this encounter Plan of Treatment Not on file documented as of this encounter Visit Diagnoses Diagnosis Thoracic or lumbosacral neuritis or radiculitis, unspecified- Primary documented in this encounter Care Teams Superintendent Schools Relationship Specialty Start Date End Date Charles Delgadillo MD [address] [place] [address] PCP - General Family Practice 09/05/10 documented as of this encounter
--- OUTSIDE RECORDS SUMMARY | 2025-09-22 19:56 | XMS_ITS | Encounter Summary ---
Author Organization [facility] Address [address] [place] [address] Care Team Providers Care Sat Tutor Name Role Phone Charles Delgadillo MD Primary Care Provider [phone] Encounter Details Date Type Department Care Team (Latest Contact Info) Description 08/06/2006 [facility] [address] [place] [address] Nancy Muir FNP [address] [facility] 248 [facility] [address] [place] [address] Lumbago (Primary Dx); Enthesopathy of Hip Social History Tobacco Use Types Packs/Day Years Used Date Smoking Tobacco: Never Assessed Comments Unknown Sex and Gender Information Value Date Recorded Sex Assigned at Not on file Legal Sex Female 5:59 AM AGRICULTURAL LOAN OFFICER Gender Identity Not on file Sexual Orientation Not on file documented as of this encounter Plan of Treatment Not on file documented as of this encounter Visit Diagnoses Diagnosis Lumbago- Primary Enthesopathy of hip Enthesopathy of hip region documented in this encounter Care Teams Sat Tutor Relationship Specialty Start Date End Date Charles Delgadillo MD [address] [place] [phone] PCP - General Family Practice 09/05/10 documented as of this encounter
--- OUTSIDE RECORDS SUMMARY | 2025-09-22 19:56 | XMS_ITS | Encounter Summary ---
Author Organization [facility] Address [address] [place] [address] Care Team Providers Care Direct Marketing Analyst Name Role Phone Charles Delgadillo MD Primary Care Provider [phone] Encounter Details Date Type Department Care Team (Latest Contact Info) Description 10/30/[address] [facility] [address] [place] [phone] Melvin Caro Disorders of Sacrum (Primary Dx) Social History Tobacco Use Types Packs/Day Years Used Date Smoking Tobacco: Never Assessed Comments Unknown Sex and Gender Information Value Date Recorded Sex Assigned at Not on file Legal Sex Female 5:59 AM PRINT LINE OPERATOR Gender Identity Not on file Sexual Orientation Not on file documented as of this encounter Plan of Treatment Not on file documented as of this encounter Visit Diagnoses Diagnosis Disorders of sacrum- Primary documented in this encounter Care Teams Direct Marketing Analyst Relationship Specialty Start Date End Date Charles Delgadillo MD [address] [place] [address] PCP - General Family Practice 09/05/10 documented as of this encounter
--- OUTSIDE RECORDS SUMMARY | 2025-09-22 19:56 | XMS_ITS | Encounter Summary ---
Author Organization [facility] Address [address] [place] [address] Care Team Providers Care Nuclear Plant Construction Worker Name Role Phone Charles Delgadillo MD Primary Care Provider [phone] Encounter Details Date Type Department Care Team (Latest Contact Info) Description 12/04/2006 Outpatient Historical [facility] [address] [place] [address] Antonio Lopez MD [address] [place] [address] Unspecified Backache (Primary Dx); Lumbosacral Spondylosis; Degeneration of Lumbar or Lumbosacral Intervertebral Disc Social History Tobacco Use Types Packs/Day Years Used Date Smoking Tobacco: Never Assessed Comments Unknown Sex and Gender Information Value Date Recorded Sex Assigned at Not on file Legal Sex Female 5:59 AM DATA CONTROL ASSISTANT Gender Identity Not on file Sexual Orientation Not on file documented as of this encounter Plan of Treatment Not on file documented as of this encounter Visit Diagnoses Diagnosis Backache, unspecified- Primary Lumbosacral spondylosis Lumbosacral spondylosis without myelopathy Degeneration of lumbar or lumbosacral intervertebral disc documented in this encounter Care Teams Nuclear Plant Construction Worker Relationship Specialty Start Date End Date Charles Delgadillo MD [address] [place] [phone] PCP - General Family Practice 09/05/10 documented as of this encounter
--- OUTSIDE RECORDS SUMMARY | 2025-09-22 19:56 | XMS_ITS | Encounter Summary ---
Author Organization [facility] Address [address] [place] [address] Care Team Providers Care Manager Er Name Role Phone Charles Delgadillo MD Primary Care Provider Encounter Details Date Type Department Care Team (Latest Contact Info) Description 12/06/2006 Outpatient Historical [facility] Nuclear Medicine[address] [address] Antonio Lopez MD [address] [place] [address] Asymptomatic Postmenopausal Status (Age-Related) (Natural) (Primary Dx) [...] documented in this encounter Care Teams Manager Er Relationship Specialty Start Date End Date Charles Delgadillo MD [address] [address] PCP - General Family Practice 09/05/10 documented as of this encounter
--- OUTSIDE RECORDS SUMMARY | 2025-09-22 19:56 | XMS_ITS | Encounter Summary ---
Author Organization [facility] Address [address] [place] [address] Care Team Providers Care Franchise Manager Name Role Phone Charles Delgadillo MD Primary Care Provider [phone] Reason for Referral * Radiology Services (Routine) - Closed Specialty Diagnoses / Procedures Referred By Tisha troncoso Referred To Contact Diagnoses Visit for screening mammogram Procedures MAMMO 3D SCREEN BILATERAL MOBILE Shanika Zavala FNP [address] [place] [phone] Phone: tel: fax: Referral ID Status Reason Start Date Expiration Date Visits Re quested Visits Authorized [id number] Closed 11/02/2020 12/03/2021 1 1 TURBINE ERECTOR Encounter Details Date Type Department Care Team (Latest Contact Info) Description 11/02/2020 Ancillary Orders [facility] [address] [address] Shanika Zavala FNP [address] [place] [phone] Visit for screening mammogram Social History [...] How often do you attend chur or latter-day services? 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 No / Unsure 10/18/2020 2:33 PM WIND TURBINE ERECTOR documented as of this encounter Plan of Treatment Not on file documented as of this encounter Results * MAMMO 3D SCREEN BILATERAL MOBILE (11/30/2020 10:48 AM WIND TURBINE ERECTOR) Anatomical Region Laterality Modality Breast Bilateral Mammography Narrative 12/01/2020 12:35 PM WIND TURBINE ERECTOR Bilateral Digital Mammogram with CAD and 3D [...] since the prior mammogram(s). us Shanika Zavala VAPOR COATER MAMMO ORDERABLES Final Result documented in this encounter Visit Diagnoses Diagnosis Visit for screening mammogram Other screening mammogram Visit for screening mammogram Other screening mammogram documented in this encounter Care Teams Franchise Manager Relationship Specialty Start Date End Date Charles Delgadillo MD [address] [place] [address] PCP - General Family Practice 09/05/10 documented as of this encounter
--- OUTSIDE RECORDS SUMMARY | 2025-09-22 19:56 | XMS_ITS | Encounter Summary ---
Author Organization [facility] Address [address] [place] [address] Care Team Providers Care Paying Teller Name Role Phone Charles Delgadillo MD Primary Care Provider [phone] Encounter Details Date Type Department Care Team (Late st Contact Info) Description 11/20/2006 [facility]patient [facility] [address] [place] [phone] Social History Tobacco Use Types Packs/Day Years Used Date Smoking Tobacco: Never Assessed Comments Unknown Sex and Gender Information Value Date Recorded Sex Assigned at Not on file Legal Sex Female 5:59 AM WOODEN FURNITURE POLISHER Gender Identity Not on file Sexual Orientation Not on file documented as of this encounter Plan of Treatment Not on file documented as of this encounter Visit Diagnoses Not on filedocumented in this encounter Care Teams Paying Teller Relationship Specialty Start Date End Date Charles Delgadillo MD [address], [place] [address] PCP - General Family Practice 09/05/10 documented as of this encounter
--- OUTSIDE RECORDS SUMMARY | 2025-09-22 19:56 | XMS_ITS | Encounter Summary ---
Author Organization [facility] Address [address] [place] [address] Care Team Providers Care Delivery Truck Driver Name Role Phone Charles Delgadillo MD Primary Care Provider Encounter Details Date Type Department Care Team (Latest Contact Info) Description 08/09/2006 Outpatient Historical [facility] [address] [place] [phone] Melvin Caro Disorders of Sacrum (Primary Dx); Thoracic or Lumbosacral Neuritis or Radiculitis, Unspecified Social History Tobacco Use Types Packs/Day Years Used Date Smoking Tobacco: Never Assessed Comments Unknown Sex and Gender Information Value Date Recorded Sex Assigned at Not on file Legal Sex Female 5:59 AM TRUCK SHOP MECHANIC Gender Identity Not on file Sexual Orientation Not on file documented as of this encounter Plan of Treatment Not on file documented as of this encounter Visit Diagnoses Diagnosis Disorders of sacrum- Primary Thoracic or lumbosacral neuritis or radiculitis, unspecified documented in this encounter Care Teams Delivery Truck Driver Relationship Specialty Start Date End Date Charles Delgadillo MD [address] [place] [address] PCP - General Family Practice 09/05/10 documented as of this encounter
--- OUTSIDE RECORDS SUMMARY | 2025-09-22 19:56 | XMS_ITS | Encounter Summary ---
Author Organization [facility] Address [address] [place] [address] Care Team Providers Care Riveter Automobile Brakes Name Role Phone Charles Delgadillo MD Primary Care Provider [phone] Encounter Details Date Type Department Care Team (Latest Contact Info) Description 09/18/2006 Outpatient [facility] [place] [address] [place] [address] Miller Bustos DPM NO ADDRESS ON FILE Plantar Fibromatosis (Primary Dx); Achilles Bursitis or Tendinitis; Difficulty in Walking Social History Tobacco Use Types Packs/Day Years Used Date Smoking Tobacco: Never Assessed Comments Unknown Sex and Gender Information Value Date Recorded Sex Assigned at Not on file Legal Sex Female 5:59 AM BLOW OFF WORKER Gender Identity Not on file Sexual Orientation Not on file documented as of this encounter Plan of Treatment Not on file documented as of this encounter Visit Diagnoses Diagnosis Plantar fibromatosis- Primary Plantar fascial fibromatosis Achilles bursitis or tendinitis Difficulty in walking(719.7) Difficulty in walking documented in this encounter Care Teams Riveter Automobile Brakes Relationship Specialty Start Date End Date Charles Delgadillo MD [address] [place] [address] PCP - General Family Practice 09/05/10 documented as of this encounter
--- OUTSIDE RECORDS SUMMARY | 2025-09-22 19:56 | XMS_ITS | Encounter Summary ---
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) Social History Tobacco Use Types Packs/Day Years Used Date Smoking Tobacco: Never Assessed Comments Unknown Sex and Gender Information Value Date Recorded Sex Assigned at Not on file Legal Sex 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 Gender Identity Not on file Sexual [...] CARE TESTING Edited Performing Organization Address City/[facility] Co de Phone Number INTERFACE SYSTEM Refer to clinic/hospital department * (ABNORMAL) POC GLUCOSE (12/29/2006 6:24 PM CDT) GLUCOSE POC 151(H) 60 - 100 mg/dL INTERFACE SYSTEM 12/29/2006 6:24 PM CDT Antonio Lopez MD POINT OF CARE TESTING Edited Performing Organization Address [facility] de Phone Number INTERFACE SYSTEM Refer to clinic/hospital department * POC GLUCOSE (12/29/2006 10:58 AM CDT) GLUCOSE POC 95 60 - 100 mg/dL INTERFACE SYSTEM 12/29/2006 10:5 8 AM CDT us Antonio Lopez MD POINT OF CARE TESTING Edited Performing Organization Address [facility] de Phone Number INTERFACE SYSTEM Refer to clinic/hospital department * (ABNORMAL) POC GLUCOSE (12/29/2006 5:12 AM CDT) GLUCOSE POC 119(H) 60 - 100 mg/dL INTERFACE SYSTEM 12/29/2006 5:12 AM CDT us Antonio Lopez MD POINT OF CARE TESTING Edited Performing Organization Address City/[facility] Co de Phone Number INTERFACE [...] MD HEMATOLOGY ORDERABLES Edited Performing Organization Address City/[facility] de Phone Number INTERFACE SYSTEM Refer to clinic/hospital department * (ABNORMAL) POC GLUCOSE (12/28/2006 9:39 PM CDT) GLUCOSE POC 151(H) 60 - 100 mg/dL INTERFACE SYSTEM 12/28/2006 9:39 PM CDT Antonio Lopez MD POINT OF CARE TESTING Edited Performing Organization Address [facility] de Phone Number INTERFACE SYSTEM Refer to clinic/hospital department * (ABNORMAL) POC GLUCOSE (12/28/2006 4:16 PM CDT) GLUCOSE POC 109(H) 60 - 100 mg/dL INTERFACE SYSTEM 12/28/2006 4:16 PM CDT us Antonio Lopez MD POINT OF CARE TESTING Edited Performing Organization Address [facility] de Phone Number INTERFACE SYSTEM Refer to clinic/hospital department * (ABNORMAL) POC GLUCOSE (12/28/2006 10:37 AM CDT) GLUCOSE POC 156(H) 60 - 100 mg/dL INTERFACE SYSTEM 12/28/2006 10:3 7 AM CDT us Antonio Lopez MD POINT OF CARE TESTING Edited Performing Organization Address City/[facility] de Phone Number INTERFACE SYSTEM [...] MD HEMATOLOGY ORDERABLES Edited Performing Organization Address City/State/[facility] Co de Phone Number INTERFACE [...] OF CARE TESTING Edited Performing Organization Address [facility] de Phone Number INTERFACE SYSTEM Refer to clinic/hospital department * (ABNORMAL) POC GLUCOSE (12/27/2006 5:08 PM CDT) GLUCOSE POC 111(H) 60 - 100 mg/dL INTERFACE SYSTEM 12/27/2006 5:08 PM CDT us Antonio Lopez MD POINT OF CARE TESTING Edited Performing Organization Address [facility] de Phone Number INTERFACE SYSTEM Refer to clinic/hospital department * (ABNORMAL) POC GLUCOSE (12/27/2006 11:12 AM CDT) GLUCOSE POC 118(H) 60 - 100 mg/dL INTERFACE SYSTEM COMMENT POC Follow Protocol INTERFACE SYSTEM 12/27/2006 11:1 2 AM CDT us Antonio Lopez MD POINT OF CARE TESTING Edited Performing Organization Address [facility] Phone Number INTERFACE SYSTEM Refer to [...] MD HEMATOLOGY ORDERABLES Edited Performing Organization Address [facility] de Phone Number INTERFACE SYSTEM [...] MD CHEMISTRY ORDERABLES Edited Performing Organization Address [facility] Phone Number INTERFACE SYSTEM Refer to [...] OF CARE TESTING Edited Performing Organization Address [facility] de Phone Number INTERFACE SYSTEM Refer to clinic/hospital department * (ABNORMAL) POC GLUCOSE (12/26/2006 11:51 AM CDT) GLUCOSE POC 118(H) 60 - 100 mg/dL INTERFACE SYSTEM 12/26/2006 11:5 1 AM CDT Anotnio Lopez MD POINT OF CARE TESTING Edited Performing Organization Address [facility] de Phone Number INTERFACE SYSTEM Refer to clinic/hospital department * (ABNORMAL) POC GLUCOSE (12/26/2006 5:22 AM CDT) GLUCOSE POC 114(H) 60 - 100 mg/dL INTERFACE SYSTEM 12/26/2006 5:22 AM CDT us Antonio Lopez MD POINT OF CARE TESTING Edited Performing Organization Address [facility] de Phone Number INTERFACE SYSTEM [...] MD HEMATOLOGY ORDERABLES Edited Performing Organization Address [facility] de Phone Number INTERFACE SYSTEM [...] MD CHEMISTRY ORDERABLES Edited Performing Organization Address [facility] Phone Number INTERFACE SYSTEM Refer to [...] MD HEMATOLOGY ORDERABLES Edited Performing Organization Address City/[facility] de Phone Number INTERFACE SYSTEM Refer to clinic/hospital department * (ABNORMAL) POC GLUCOSE (12/25/2006 9:21 PM CDT) GLUCOSE POC 139(H) 60 - 100 mg/dL INTERFACE SYSTEM 12/25/2006 9:21 PM CDT Antonio Lopez MD POINT OF CARE TESTING Edited Performing Organization Address City/[facility] de Phone Number INTERFACE SYSTEM Refer to clinic/hospital department * (ABNORMAL) POC GLUCOSE (12/25/2006 6:17 PM CDT) GLUCOSE POC 129(H) 60 - 100 mg/dL INTERFACE SYSTEM 12/25/2006 6:17 PM CDT us Antonio Lopez MD POINT OF CARE TESTING Edited Performing Organization Address City/[facility] Co de Phone Number INTERFACE SYSTEM Refer to clinic/hospital department * (ABNORMAL) POC GLUCOSE (12/25/2006 11:32 AM CDT) GLUCOSE POC 123(H) 60 - 100 mg/dL INTERFACE SYSTEM 12/25/2006 11:3 2 AM CDT us Antonio Lopez MD POINT OF CARE TESTING Edited Performing Organization Address [facility] Phone Number INTERFACE SYSTEM Refer to [...] MD HEMATOLOGY ORDERABLES Edited Performing Organization Address [facility] Phone Number INTERFACE SYSTEM Refer to clinic/hospital department * (ABNORMAL) POC GLUCOSE (12/25/2006 5:40 AM CDT) GLUCOSE POC 137(H) 60 - 100 mg/dL INTERFACE SYSTEM 12/25/2006 5:40 AM CDT us Antonio Lopez MD POINT OF CARE TESTING Edited Performing Organization Address [facility] Phone Number INTERFACE SYSTEM Refer to [...] MD HEMATOLOGY ORDERABLES Edited Performing Organization Address City/[facility] Co de Phone Number INTERFACE SYSTEM Refer to clinic/hospital department * (ABNORMAL) PTT (12/25/2006 2:53 AM CDT) [facility] PTT 93.2(H) 21.6 - 35.6 Secs INTERFACE SYSTEM Comment: Therapeutic Range: Hi-level PE/DVT heparin protocol 80.1 -95.0 sec Lo-level PE/DVT heparin protocol 67.1 - 80.0 sec Cardiac Heparin Protocol 67.1 - 85.0 sec Neuro Heparin Protocol 67.1 - 80.0 sec As of 08/29/2006 note change in APTT Normal Range. 12/25/2006 2:53 AM CDT Antonio Lopez MD HEMATOLOGY ORDERABLES Edited Performing Organization Address [facility] Co de Phone Number INTERFACE SYSTEM Refer to clinic/hospital department * (ABNORMAL) POC GLUCOSE (12/24/2006 9:51 PM CDT) GLUCOSE POC 143(H) 60 - 100 mg/dL INTERFACE SYSTEM 12/24/2006 9:51 PM CDT us Antonio Lopez MD POINT OF CARE TESTING Edited Performing Organization Address City/[facility] de Phone Number INTERFACE SYSTEM [...] Pharm D. 12/24/2006 7:30 PM CDT Result [facility] Antonio Lopez MD HEMATOLOGY ORDERABLES Edited Performing Organization Address [facility] Phone Number INTERFACE SYSTEM Refer to clinic/hospital department * (ABNORMAL) POC GLUCOSE (12/24/2006 5:55 PM CDT) GLUCOSE POC 132(H) 60 - 100 mg/dL INTERFACE SYSTEM 12/24/2006 5:55 PM CDT Result [facility] us Antonio Lopez MD POINT OF CARE TESTING Edited Performing Organization Address [facility] de Phone Number INTERFACE SYSTEM Refer to clinic/hospital department * (ABNORMAL) POC GLUCOSE (12/24/2006 11:30 AM CDT) GLUCOSE POC 172(H) 60 - 100 mg/dL INTERFACE SYSTEM 12/24/2006 11:3 0 AM CDT Antonio Lopez MD POINT OF CARE TESTING Edited Performing Organization Address [facility] Phone Number INTERFACE SYSTEM Refer to clinic/hospital department * (ABNORMAL) POC GLUCOSE (12/24/2006 6:06 AM CDT) GLUCOSE POC 130(H) 60 - 100 mg/dL INTERFACE SYSTEM 12/24/2006 6:06 AM CDT Antonio Lopez MD POINT OF CARE TESTING Edited Performing Organization Address [facility] Phone Number INTERFACE SYSTEM Refer to clinic/hospital [...] MD CHEMISTRY ORDERABLES Edited Performing Organization Address [facility] Phone Number INTERFACE SYSTEM Refer to [...] OF CARE TESTING Edited Performing Organization Address [facility] de Phone Number INTERFACE SYSTEM Refer to clinic/hospital department * (ABNORMAL) POC GLUCOSE (12/23/2006 11:52 AM CDT) GLUCOSE POC 154(H) 60 - 100 mg/dL INTERFACE SYSTEM 12/23/2006 11:5 2 AM CDT us Antonio Lopez MD POINT OF CARE TESTING Edited Performing Organization Address [facility] Phone Number INTERFACE SYSTEM Refer to clinic/hospital department * (ABNORMAL) HEMOGLOBIN AND HEMATOCRIT (12/23/2006 10:31 AM CDT) HEMOGLOBIN 8.0(L) 12.0 - 16.0 g/dL INTERFACE SYSTEM HEMATOCRIT 24.4(L) 36.0 - 46.0 % INTERFACE SYSTEM 12/23/2006 10:3 1 AM CDT us Antonio Lopez MD HEMATOLOGY ORDERABLES Edited Performing Organization Address [facility] Phone Number INTERFACE SYSTEM Refer to clinic/hospital department documented in this encounter Visit Diagnoses Diagnosis Degeneration of lumbar or lumbosacral intervertebral disc- Primary documented in this encounter Care Teams Visual Presentation Manager Relationship Specialty Start Date End Date Charles Delgadillo MD [address], [place] [address] PCP - General Family Practice 09/05/10 documented as of this encounter
--- OUTSIDE RECORDS SUMMARY | 2025-09-22 19:56 | XMS_ITS | Encounter Summary ---
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
--- OUTSIDE RECORDS SUMMARY | 2025-09-22 19:56 | XMS_ITS | Encounter Summary ---
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); Thoracic or Lumbosacral Neuritis or Radiculitis, Unspecified Social History Tobacco Use Types Packs/Day Years Used Date Smoking Tobacco: Never Assessed Comments Unknown Sex and Gender Information Value Date Recorded Sex Assigned at Not on file Legal 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
--- NOTE | 2025-09-22 20:00 | W.ED.FALL ---
HPI - Fall General: Chief Complaint: GI Bleed Stated Complaint: possible uti/ams Time Seen by Provider: 09/22/25 19:43 History of Present Illness: Patient is 75-year-old female that has recent humerus fracture, presents to the emergency room due to back pain. Patient describes pain in her mid scapular left side. She has not had a fall or injury here. This is worsening over the course of today. She does have chronic issues, however it is the spasming that is worsening. Daughter describes an altered mentation. Patient states that she is alert and oriented. Denies any fevers. Denies any dysuria oliguria. States that she is drinking and eating okay. No fevers. She did not have a specific fall, at this time, however had unsteady gait, and daughter could not get her transferred to the bedside commode. Associated symptoms-after fall: Denies abdominal pain, chest pain, headache(s) or neck pain Related Data Home Medications ?Medication ?Instructions ?Recorded ?Confirmed diclofenac sodium 1 % topical gel 2 gm topical QID 05/26/20 08/31/25 epinephrine 0.3 mg/0.3 mL 0.3 mg IM Q10M PRN Allergic 05/26/20 08/31/25 injection, auto-injector Reaction fluticasone propionate 50 2 spray intranasal DAILY 05/26/20 08/31/25 mcg/actuation nasal spray,suspension lactobacillus combination no.8 3 3,000 mmu cells PO DAILY 05/26/20 08/31/25 billion cell capsule (Adult Probiotic) polyethylene glycol 3350 17 17 gm PO DAILY 05/26/20 08/31/25 gram/dose oral powder (Miralax) pregabalin 50 mg capsule (Lyrica) 50 mg PO TID 05/26/20 08/31/25 zolpidem 10 mg tablet 10 mg PO ONCE 05/26/20 08/31/25 albuterol sulfate 90 mcg/actuation 2 puff inhalation QID PRN Allergic 01/01/23 08/31/25 aerosol inhaler Symptoms cyclobenzaprine 10 mg tablet 10 mg PO TID PRN Spasms 01/01/23 08/31/25 insulin glargine 100 unit/mL (3 52 unit SUBCUT QAM 08/26/23 08/31/25 mL) subcutaneous pen (Lantus Solostar U-100 Insulin) atorvastatin 20 mg tablet mg PO 11/25/23 08/31/25 blood-glucose sensor (Dexcom G7 #1 ea 11/25/23 08/31/25 Sensor device) metoprolol tartrate 25 mg tablet 25 mg PO BID 12/24/23 08/31/25 pantoprazole 40 mg tablet,delayed 40 mg PO DAILY 12/24/23 08/31/25 release cetirizine 10 mg tablet mg PO 01/26/25 08/31/25 insulin lispro 100 unit/mL SUBCUT 01/26/25 08/31/25 subcutaneous pen Previous Rx's ?Medication ?Instructions ?Recorded pen needle, diabetic 31 gauge x #100 ea 09/26/2112/06 (Sure-Fine Pen Accident) aspirin 81 mg tablet,delayed 81 mg PO DAILY #30 tabs 12/24/23 release (Adult Low Dose Aspirin) ferrous gluconate 324 mg (38 mg 324 mg PO ONCE #30 tabs 03/23/25 iron) tablet hydrocodone 5 mg-acetaminophen 325 1 tab PO Q6H PRN pain #15 tabs 09/18/25 mg tablet lactulose 10 gram/15 mL oral 30 g (45 mL) PO Q2H 48 hours 09/22/25 solution #1,080 mL Allergies Allergy/AdvReac Type Severity Reaction Status Date / Time fluoxetine Allergy ALGY-Hives Verified 09/21/25 10:03 meperidine (From Demerol) Allergy ALGY-Rash Verified 09/21/25 10:03 morphine Allergy Unknown Verified 09/21/25 10:03 naloxone (From Talwin NX) Allergy ALGY-Anaphy Verified 09/21/25 10:03 laxis olopatadine (From Patanase) Allergy ADR-Nose Verified 09/21/25 10:03 Bleed oxycodone Allergy ALGY-Rash Verified 09/21/25 10:03 pentazocine Allergy ALGY-Swell Verified 09/21/25 10:03 Lip/Tongue/Throat Sulfa (Sulfonamide Allergy ALGY-Rash Verified 09/21/25 10:03 Antibiotics) Review of Systems General: Reports: 10 or more systems reviewed and unremarkable except in HPI and below Const: Denies: fever(s) or chills Card: Denies: chest pain or palpitations Resp: Denies: dyspnea or non-productive cough GI: Denies: abdominal pain : Denies: dysuria, urinary frequency or urinary urgency Musc: Reports: back pain; Denies: neck pain Skin/Breast: Denies: rash Neuro: Denies: headache(s) or numbness in extremities Psych: Denies: anxiety or depression PFS ED PFSH: Medical History (Updated 09/22/25 @ 23:12 by FLOYD Aceves) Angiodysplasia of stomach Anemia due to other cause, not classified History of deep vein thrombosis of lower extremity Mixed hyperlipidemia Primary hypertension GERD (gastroesophageal reflux disease) Type 2 diabetes mellitus without complication, without long-term current use of insulin Chronic kidney disease Allergic rhinitis Anxiety and depression Lymphocytosis-symptomatc Gamma T lymphocytosis Cirrhosis of liver Fibromyalgia Osteoarthritis COPD (chronic obstructive pulmonary disease) Intestinal obstruction 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 Mother Diabetes Lung disease Sister Cancer breast Social History Smoking and tobacco/nicotine status: never used tobacco/nicotine Alcohol intake: never Substance/Drug Use: never Physical Exam Const: COMMON NORMALS: no acute distress GENERAL APPEARANCE: cooperative and comfortable ORIENTATION/CONSCIOUSNESS: Yes awake, Yes oriented to person, Yes oriented to place and Yes oriented to time HENMT: COMMON NORMALS: normocephalic, atraumatic and hearing grossly normal bilaterally HEAD & SCALP: normocephalic and atraumatic Lymph: LYMPHATIC: no lymphadenopathy noted Resp: COMMON NORMALS: normal respiratory effort, No retractions, No use of accessory muscles and clear to auscultation bilaterally AUSCULTATION: clear to auscultation bilaterally Cardio: COMMON NORMALS: regular rate, regular rhythm and No murmurs present (Cardio) RATE: regular rate RHYTHM: regular rhythm GI: COMMON NORMALS: Soft to palpation and No hepatosplenomegaly present AUSCULTATION: Yes normoactive bowel sounds PALPATION: Yes Soft to palpation, No Tenderness to palpation present (GI), No Guarding due to palpation present (GI) and Yes No hepatosplenomegaly present Extremity: COMMON NORMALS: capillary refill normal, no clubbing, cyanosis or edema, no calf tenderness and no pedal edema Neuro: SENSORIUM/ORIENTATION: Yes oriented to person, Yes oriented to place and Yes oriented to time Skin: COMMON NORMALS: no rashes or lesions noted GENERAL SKIN EXAM: no rashes or lesions noted Course Vital Signs: Vital signs: Vital Signs Temperature 98.2 F 09/22/25 23:49 Pulse Rate 78 09/22/25 23:49 Respiratory Rate 16 09/22/25 23:49 Blood Pressure 131/68 09/22/25 23:49 Pulse Oximetry 100 09/22/25 23:49 Oxygen Delivery Me thod Nasal Cannula 09/22/25 23:45 Oxygen Flow Rate 2 09/22/25 23:45 MDM - Fall Medical Decision Making Patient is a 75-year-old female chronically on iron infusions, chronic anemia, presents to the ED with mild confusion, ambulatory dysfunction. Patient is oriented x 5 on my evaluation. On initial workup, what was found was an elevation of ammonia level. No significant history of liver disease, however on chronic narcotics, and has obstipation. This is the most likely culprit. She feels improved after IV fluids x 1 L, and is drinking p.o. Will ambulate the patient, and then discharged home with lactulose. Medical Records I reviewed the patient's medical records. Lab Data I reviewed the patient's lab results. 09/22/25 20:18 09/22/25 20:18 Radiology Impressions Chest X-Ray 09/22/25 19:43 IMPRESSION: No definite acute infiltrate or effusion. Laboratory Results WBC 14.57 10^3/uL (3.29-11.43) H 09/22/25 20:18 RBC 2.70 10^6/uL (3.85-5.65) L 09/22/25 20:18 Hgb 9.20 g/dL (11.27-16.99) L 09/22/25 20:18 Hct 31.6 % (36-47) L 09/22/25 20:18 MCV 117.0 fl (85-98) H 09/22/25 20:18 MCH 34.1 pg (27-33) H 09/22/25 20:18 MCHC 29.1 g/dL (30-55) L 09/22/25 20:18 RDW 20.4 % (12.1-15.1) H 09/22/25 20:18 Plt Count 368 10^3/cmm (157-399) 09/22/25 20:18 MPV 12.3 fL (7.4-10.4) H 09/22/25 20:18 Neut % (Auto) 47.7 % 09/22/25 20:18 Lymph % (Auto) 30.5 % 09/22/25 20:18 [place] % (Auto) 13.6 % 09/22/25 20:18 Eos % (Auto) 3.3 % 09/22/25 20:18 Baso % (Auto) 1.3 % 09/22/25 20:18 Neut # (Auto) 6.95 10^3/uL (1.8-7.7) 09/22/25 20:18 Lymph # (Auto) 4.5 10^3/uL (0.8-4.8) 09/22/25 20:18 [place] # (Auto) 2.0 10^3/uL (0.2-0.9) H 09/22/25 20:18 Eos # (Auto) 0.5 10^3/uL (0.0-0.8) 09/22/25 20:18 Baso # (Auto) 0.2 10^3/uL (0.0-0.1) H 09/22/25 20:18 Nucleated RBC % (auto) 0.5 % 09/22/25 20:18 Nucleated RBCs # 0.1 /100WBC 09/22/25 20:18 Sodium 134 mmol/L (136-145) L 09/22/25 20:18 Potassium 5.0 mmol/L (3.5-5.1) 09/22/25 20:18 Chloride 101 mmol/L (98-107) 09/22/25 20:18 Carbon Dioxide 19 mmol/L (22-29) L 09/22/25 20:18 Anion Gap 19.0 (5-19) 09/22/25 20:18 BUN 21 mg/dL (8-23) 09/22/25 20:18 Creatinine 1.2 mg/dL (0.5-0.9) H 09/22/25 20:18 GFR Calculation Not Reportable 09/22/25 20:18 Glucose 425 mg/dL (65-115) H 09/22/25 20:18 Calculated Osmolality 299 mOsm/kg (285-295) H 09/22/25 20:18 Lactic Acid 3.2 mmol/L (0.5-2.2) H 09/22/25 20:18 Calcium 9.0 mg/dL (8.5-10.5) 09/22/25 20:18 Total Bilirubin 0.6 mg/dL (0.15-1.2) 09/22/25 20:18 AST 63 U/L (0-32) H 09/22/25 20:18 ALT 32 U/L (0-33) 09/22/25 20:18 Alkaline Phosphatase 254 U/L (35-105) H 09/22/25 20:18 Ammonia 91 umol/L (11-51) H 09/22/25 20:18 NT-Pro-B Natriuret Pep 150 pg/mL (0-450) 09/22/25 20:18 Total Protein 6.8 g/dL (6.6-8.7) 09/22/25 20:18 Albumin 3.3 g/dL (3.5-5.2) L 09/22/25 20:18 Globulin 3.5 g/dL (1.3-4.6) 09/22/25 20:18 Urine Color Yellow (Yellow) 09/22/25 21:21 Urine Appearance Clear (CLEAR) 09/22/25 21:21 Urine pH 5.5 (5-7) 09/22/25 21:21 Ur Specific [place] 1.025 (1.005-1.030) 09/22/25 21:21 Urine Protein Negative (Negative) 09/22/25 21:21 Urine Glucose (UA) 3+ (Normal) H 09/22/25 21:21 Urine Ketones Negative (Negative) 09/22/25 21:21 Urine Blood Negative (Negative) 09/22/25 21:21 Urine Nitrate Negative (Negative) 09/22/25 21:21 Urine Bilirubin Negative (Negative) 09/22/25 21:21 Urine Urobilinogen 1.0 mg/dL (Negative) 09/22/25 21:21 Ur Leukocyte Esterase Negative (Negative) 09/22/25 21:21 Urine RBC 0-2 /hpf (0-2) 09/22/25 21:21 Urine WBC 0-5 /hpf (0-5) 09/22/25 21:21 Ur Squamous Epith Cells 0-5 /hpf (0-5) 09/22/25 21:21 Amorphous Sediment Not Reportable 09/22/25 21:21 Urine Bacteria 4+ /hpf (NONE) H 09/22/25 21:21 Hyaline Casts 0-4 /lpf H 09/22/25 21:21 Urine Opiates Screen Positive ng/mL (Negative) H 09/22/25 21:21 Ur Barbiturates Screen Negative ng/mL (Negative) 09/22/25 21:21 Ur Phencyclidine Scrn Negative ng/mL (Negative) 09/22/25 21:21 Ur Amphetamines Screen Negative ng/mL (Negative) 09/22/25 21:21 U Benzodiazepines Scrn Negative ng/mL (Negative) 09/22/25 21:21 Urine Cocaine Screen Negative ng/mL (Negative) 09/22/25 21:21 U Marijuana (THC) Screen Negative ng/mL (Negative) 09/22/25 21:21 Ethyl Alcohol < 10 mg/dL (0-10) 09/22/25 20:18 Influenza A (PCR) Negative (Negative) 09/22/25 22:08 Influenza Type B (PCR) Negative (Negative) 09/22/25 22:08 RSV (PCR) Negative (Negative) 09/22/25 22:08 SARS-CoV-2 (PCR) Negative (Negative) 09/22/25 22:08 All radiology interpretation(s) finalized by discharge EKG Data EKG 1: Interpretation: Normal sinus rhythm, normal axis Discharge Plan Discharge Patient Disposition: Home Clinical Impression: Acute hepatic encephalopathy Condition: Stable Prescriptions: New lactulose 10 gram/15 mL solution 30 g PO Q2H 2 Days Qty: 1080 0RF Rx Instructions: until desired laxative effect No Action diclofenac sodium 1 % gel 2 gm TOPICAL QID Rx Instructions: apply to single elbow, wrist or hand; for hand includes palm/fingers/back of hand epinephrine 0.3 mg/0.3 mL auto-injector 0.3 mg IM Q10M PRN (Reason: Allergic Reaction) Rx Instructions: for 2 doses fluticasone propionate 50 mcg/actuation spray,suspension 2 spray INTRANASAL DAILY Rx Instructions: administer into each nostril pregabalin [Lyrica] 50 mg capsule 50 mg PO TID polyethylene glycol 3350 [Miralax] 17 gram/dose powder 17 gm PO DAILY Adult Probiotic 3 billion cell capsule 3,000 mmu cells PO DAILY Rx Instructions: administer with a meal zolpidem 10 mg tablet 10 mg PO ONCE albuterol sulfate 90 mcg/actuation HFA aerosol inhaler 2 puff INHALATION QID PRN (Reason: Allergic Symptoms) cyclobenzaprine 10 mg tablet 10 mg PO TID PRN (Reason: Spasms) (DME) pen needle, diabetic [Sure-Fine Pen Accident] 31 gauge x 3/16 needle See Rx Instructions .ROUTE .MEDSUPPLY Qty: 100 2RF Rx Instructions: Use once daily atorvastatin 20 mg tablet PO (DME) Dexcom G7 Sensor Device See Rx Instructions .ROUTE .MEDSUPPLY Qty: 1 Rx Instructions: As directed cetirizine 10 mg tablet PO insulin lispro 100 unit/mL insulin pen SUBCUT metoprolol tartrate 25 mg tablet 25 mg PO BID aspirin [Adult Low Dose Aspirin] 81 mg tablet,delayed release (DR/EC) 81 mg PO DAILY Qty: 30 0RF pantoprazole 40 mg tablet,delayed release (DR/EC) 40 mg PO DAILY ferrous gluconate 324 mg (38 mg iron) tablet 324 mg PO ONCE Qty: 30 0RF insulin glargine [Lantus Solostar U-100 Insulin] 100 unit/mL (3 mL) insulin pen 52 unit SUBCUT QAM Rx Instructions: Inject 32 units subcut daily. hydrocodone-acetaminophen 5-325 mg tablet 1 tab PO Q6H PRN (Reason: pain) Qty: 15 0RF Discharge Orders: Discharge ED (Routine); Ordered 09/22/25 Ordered By: Meenakshi Chavez Referrals: Norman Caldera MD [Primary Care Provider, Family Practice] Patient Instructions: Hepatic Encephalopathy (DC), Patient Portal & Gerardo Instructions Activity Restrictions/Additional Instructions: - Increase your fluid intake - Consider reducing your dose of hydrocodone. Discussed with your pain management - Sending home lactulose: Take every 2 hours until you produce BM. - At the pharmacy: Lactulose. Use as directed - Return to ED: Worsening weakness, fever greater than 100.4 ?F, worsening confusion Thank you for choosing [facility] for your healthcare needs today. You have been screened and evaluated and felt safe for discharge. Health conditions do change or evolve sometimes and as such it is important that you follow up with your Primary Doctor to be re checked, 3-5 days is a general good time frame for follow up. You are always welcome to return to the ED for re assessment if your symptoms are worsening or you have new concerns Print Language: [place] Coding Level of Care Code ED Iuss Acoustic Analyst for [facility] [place]
[2025-09-22 20:05] VITALS: BP 127/86; PULSE 78; RESP 17; O2SAT 99
[2025-09-22 20:24] LABS: Hematocrit 31.6 % (36-47); Hemoglobin 9.20 g/dL (11.27-16.99); Mean Corpuscular HGB Conc 29.1 g/dL (30-55); Mean Corpuscular Hemoglobin 34.1 pg (27-33); Mean Corpuscular Volume 117.0 fl (85-98); Nucleated Red Blood Cells % 0.5 %; Platelet Count 368 10^3/cmm (157-399); Red Blood Count 2.70 10^6/uL (3.85-5.65); White Blood Count 14.57 10^3/uL (3.29-11.43)
--- NOTE | 2025-09-22 20:24 | ECG_ITS ---
[facility] Test Date: 2025-09-22 Pat Name: Moira Mckinnon Department: Room: Gender: Female Digital Measurement Advisor: : [id number] Requested By: Meenakshi Chavez Order Number: [id number] Diaz MD: Hugo Jacob M.D. Measurements Intervals [place] Rate: 81 P: 64 NV: 144 QRS: 8 QRSD: 78 T: 23 QT: 374 QTc: 435 Interpretive Statements SINUS RHYTHM Compared to ECG 04/26/2025 15:33:25 No significant changes Electronically Signed On 09-23-2025 15:40:54 COCKTAIL SERVER by Hugo Jacob M.D. [email or web address] [id number]
[2025-09-22 20:41] LABS: Lactic Sepsis W/Reflex 3.2 mmol/L (0.5-2.2)
[2025-09-22 20:47] LABS: Ammonia 91 umol/L (11-51)
[2025-09-22 20:51] LABS: Alanine Aminotransferase 32 U/L (0-33); Albumin Level 3.3 g/dL (3.5-5.2); Alkaline Phosphatase 254 U/L (35-105); Anion Gap 19.0 (5-19); Aspartate Amino Transferase 63 U/L (0-32); Blood Urea Nitrogen 21 mg/dL (8-23); Calcium 9.0 mg/dL (8.5-10.5); Carbon Dioxide 19 mmol/L (22-29); Chloride 101 mmol/L (98-107); Globulin 3.5 g/dL (1.3-4.6); Glucose 425 mg/dL (65-115); NT Pro B Type Natriuretic Pept 150 pg/mL (0-450); Osmolality Calculated 299 mOsm/kg (285-295); Potassium 5.0 mmol/L (3.5-5.1); Sodium 134 mmol/L (136-145); Total Protein 6.8 g/dL (6.6-8.7)
[2025-09-22 21:00] VITALS: BP 137/80; PULSE 89; RESP 16; O2SAT 95
[2025-09-22 21:02] LABS: Alcohol Level < 10 mg/dL (0-10)
[2025-09-22 22:09] LABS: Reflex Lactate Order REFLEX LACTIC ORDERD
[2025-09-22 22:31] LABS: Glucose Urine UA 3+ (Normal); Nitrate Urine Negative (Negative); PCP Screen Urine Negative (Negative); Specific Gravity, Urine 1.025 (1.005-1.030)
[2025-09-22 22:36] LABS: Add Urine Microscopic? YES
[2025-09-22 22:59] LABS: Respiratory Syncytial Virus Ce NEGATIVE (Negative); SARS-CoV-2 PCR NEGATIVE (Negative)
--- NOTE | 2025-09-22 23:44 | PC.NURSE ---
pt given 3 doses lactulose with instructions, hep-locked port barcode discarded before it could be scanned, patient taken to car and helped into car with two RN's
[2025-09-22 23:45] VITALS: BP 131/68; PULSE 75; RESP 16; TEMP 36.9; O2SAT 96; BMI 16.3
[2025-09-22 23:49] VITALS: BP 131/68; PULSE 78; RESP 16; TEMP 36.8; O2SAT 100
== END 2025-09-22 23:51 | disposition home or self-care (01) ==
PROVIDERS: Emergency Provider Physician Assistant; PCP Family Medicine
DX: K76.82 Hepatic encephalopathy (principal); Z79.82 Long term (current) use of aspirin; Z79.4 Long term (current) use of insulin; Z11.52 Encounter for screening for COVID-19; J44.9 Chronic obstructive pulmonary disease, unspecified; E11.22 Type 2 diabetes mellitus with diabetic chronic kidney disease; I12.9 Hypertensive chronic kidney disease with stage 1 through stage 4 chronic kidney disease, or unspecified chronic kidney disease; N18.9 Chronic kidney disease, unspecified; E78.2 Mixed hyperlipidemia
CPT/HCPCS: 36415; 71045; 80053; 80306; 80307; 81001; 82140; 83605; 83880; 85025; 87637; 93005; 96374; 99285; J1642; J7030